=== PATIENT | female | born 1955 | race Caucasian/White ===

== ENCOUNTER 2017-02-23 14:23 | Inpatient (IN) ==
[2017-02-23 15:02] LABS: Basophils % 0.3 %; Eosinophils # 0.1 K/mcL (0.0-0.6); Eosinophils % 2.1 %; Hematocrit 33.3 % (35.3-44.9); Hemoglobin 10.4 g/dL (11.5-15.4); Immature Granulocytes % 0.3 % (0-4); Lymphocytes # 1.3 K/mcL (0.6-4.6); Lymphocytes % 37.2 %; Mean Corpuscular HGB Conc 31.2 g/dL (31.6-35.5); Mean Corpuscular Hemoglobin 26.3 pg (28.0-33.3); Mean Corpuscular Volume 84.3 fL (83.0-100.0); Monocytes # 0.3 K/mcL (0.0-1.3); Monocytes % 8.3 %; Neutrophils # 1.8 K/mcL (1.6-8.9); Platelet Count 151 K/mcL (140-400); Red Blood Count 3.95 M/mcL (3.82-4.97); Red Cell Distribution Width 15.1 % (11.5-14.5); Segmented Neutrophils % 51.8 %
[2017-02-23 15:09] LABS: INR 1.1; Prothrombin Time 12.4 Seconds (9.4-12.1)
[2017-02-23 15:11] LABS: Activated Partial Thrombo Time 29.2 Seconds (26.0-36.0)
--- NOTE | 2017-02-23 16:14 | Emergency Department Note ---
Disposition Clinical Impression: Atrial fibrillation with RVR Disposition: Admitted As Inpatient Condition: Fair Referrals: Matthias Polo MD [Primary Care Provider] - Forms: ED Satisfaction Letter Time of Disposition: 19:08 Arrhythmia/Palpitations HPI - General Chief Complaint: ED Arrhythmia/Palpitations Stated Complaint: sent from Dr. Polo,"afib,hypoxia" Time Seen by Provider: 02/23/17 16:12 Source: patient Limitations: no limitations Nursing Notes Reviewed: Yes Vital Signs Reviewed: Yes - History of Present Illness HPI Narrative: 61-year-old was seen family doctor for follow-up that admission to an outside hospital for bilateral pneumonia. And apparently was to start anticoagulation from that visit but had not started it yet. Was found to be in A. fib with RVR which appears to be new based on our review of EKG the patient's recollection of her history. We'll attempt to get records from the recent hospitalization at the outside hospital to verify whether she was in A. fib or not and get other records from there. Review of the records from outside hospital patient was in atrial fibrillation was admitted for bilateral pneumonia. An echocardiogram shows EF of 55%. 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 Duration: constant Severity: moderate Context: occurred during rest Arrhythmia History: other (Patient denies history of atrial fibrillation) Associated symptoms: Reports: denies other symptoms - Related Data Home Medications Medication Instructions Recorded Confirmed Ascorbic Acid [Vitamin C] 250 mg PO BID 01/11/16 10/18/16 Aspirin 325 mg PO DAILY 01/11/16 10/18/16 Calcium Carbonate/Vitamin D3 1 each PO BID 01/11/16 10/18/16 [Calcium 500 + Vit D Caplet] Ergocalciferol (VITAMIN D2) 50,000 unit PO DAVIS 01/11/16 10/18/16 [Vitamin D2 (50,000 UNIT)] Folic Acid 2 mg PO DAILY 01/11/16 10/18/16 Isosorbide MONOnitrate [Isosorbide 120 mg PO DAILY 01/11/16 10/18/16 Mononitrate ER] Metoprolol XL (24 HR) Succ [Toprol 100 mg PO DAILY 01/11/16 10/18/16 Xl] Multivitamin/Iron/Folic Acid 1 each PO DAILY 01/11/16 10/18/16 [Centrum Complete Multivit Tab] Nitroglycerin [Nitrostat] 0.4 mg SL Q5M PRN 01/11/16 10/18/16 [place]-3/Dha/Epa/Fish Oil [Fish Oil 1,000 mg PO DAILY 01/11/16 10/18/16 Dr 500 mg Softgel] Pregabalin [Lyrica] 200 mg PO BID 01/11/16 10/18/16 Ranolazine [Ranexa] 1,000 mg PO BID 01/11/16 10/18/16 Simvastatin [Zocor] 20 mg PO HS 01/11/16 10/18/16 Venlafaxine HCl [Effexor Xr] 75 mg PO DAILY 01/11/16 10/18/16 Vitamin E 1,000 units PO DAILY 01/11/16 10/18/16 Alprazolam [Xanax 1 MG Tablet] 0.25 mg PO BID PRN 10/18/16 10/21/16 Amitriptyline [Elavil] 25 - 50 mg PO HS 10/18/16 10/18/16 Omeprazole [PriLOSEC] 40 mg PO DAILY 10/18/16 10/18/16 Oxycodone HCl/Acetaminophen 1 each PO Q6H PRN 10/18/16 10/18/16 [Percocet 10-325 mg Tablet] Clopidogrel [Plavix] 10/19/16 Previous Rx's Medication Instructions Recorded Lisinopril [Zestril] 40 mg PO DAILY #0 10/21/16 Allergies Allergy/AdvReac Type Severity Reaction Status Date / Time hydrocodone [From Vicodin] Allergy Swelling Verified 02/23/17 14:36 of Lip/Tongue/Throat All systems ED: reviewed and negative except as stated. Constitutional: Denies: fever, chills, weakness, weight change Eyes: Denies: eye pain, eye discharge, vision change ENT ED: Denies: ear pain, throat pain, dental pain, hearing loss, epistaxis, congestion, dysphagia Cardiovascular: Reports: palpitations. Denies: chest pain, dyspnea on exertion , edema, syncope Respiratory: Denies: cough, dyspnea, wheezes, hemoptysis, stridor Gastrointestinal: Denies: abdominal pain, nausea, vomiting, diarrhea, constipation, hematemesis, melena, hematochezia Genitourinary: Denies: dysuria, frequency, hematuria, discharge Musculoskeletal: Denies: back pain, neck pain, arthralgia, myalgia Integumentary: Denies: rash, abrasion, lesions Neurological: Denies: headache, weakness, numbness, paresthesias, confusion, abnormal gait, vertigo Psychiatric: Denies: anxiety, depression, suicidal thoughts, homicidal thoughts , auditory hallucinations, visual hallucinations Endocrine: Denies: fatigue Hematological/Lymphatic: Denies: easy bleeding, easy bruising Allergic/Immunologic: Denies: facial swelling, urticaria Past Medical History - Past Medical History Medical history: Reports: coronary artery disease, hyperlipidemia, hypertension , osteoporosis, other Surgical history: Reports: cholecystectomy, coronary bypass (CABG), hysterectomy Psychiatric history: Reports: depression - Social History Smoking Status: Never smoker Smokeless Tobacco Status: No Alcohol use: Reports: none Drug use: Reports: none Physical Exam - General Limitations: no limitations General appearance: alert, in no apparent distress - Head Head exam: atraumatic, normocephalic, normal inspection - Eye Eye exam: Present: normal appearance, PERRL, EOMI - ENT ENT exam: normal exam, normal oropharynx, mucous membranes moist - Neck Neck exam: Present: normal inspection, full ROM, trachea midline - Chest Chest inspection: Present: normal inspection, symmetric chest wall rise - Respiratory Respiratory exam: Present: normal lung sounds bilaterally - Cardiovascular Cardiovascular exam: Present: tachycardia, irregular rhythm - Abdominal Exam Abdominal exam: Present: soft, Non-Tender. Absent: tenderness, distention, guarding, rebound, rigidity - Extremities Exam Extremities exam: Present: normal inspection, full ROM. Absent: tenderness, pedal edema - Expanded Lower Extremity Exam Neurovascular/Tendon exam: Absent: motor deficit, sensory deficit, tendon deficit Gait: observed and normal - Back Exam Back exam: Present: normal inspection, full ROM. Absent: tenderness - Neurological Exam Neurological exam: Present: alert, oriented X3 - Psychiatric Psychiatric exam: Present: normal affect, normal mood - Skin Skin exam: Present: warm, dry, intact, normal color Course - Reevaluation(s) Reevaluation #1: Patient is a 61-year-old was seen at the office for follow-up of pneumonia from outside facility. Patient was found to have a heart rate 135 and irregular. Patient on arrival here has some shortness of breath her heart rate anywhere from 100-120. She is in a . I did get medical records from the outside hospital she did have a cardiac catheter that shows that she has a bypass that is functioning. Her EF was 55%. Workup here included a negative chest x-ray however she did have some rales on exam and her BNP is 580 were given her some Lasix. He is in A. fib RVR will start her on Cardizem drip at low level since she's is just marginally high. Also give her a shot of Lovenox. Time: 19:42 - Consultations Consultation #1: Discussed with Serina Bartholomew nurse practitioner admit. Time: 19:44 Vital Signs Temperature 98.7 F 02/23/17 14:30 Pulse Rate 88 02/23/17 14:30 Respiratory Rate 18 02/23/17 14:30 Blood Pressure 115/59 02/23/17 14:30 O2 Sat by Pulse Oximetry 96 02/23/17 14:30 Temperature 98.7 F 02/23/17 14:30 Pulse Rate 116 02/23/17 19:40 Respiratory Rate 18 02/23/17 19:40 Blood Pressure 147/82 02/23/17 19:40 O2 Sat by Pulse Oximetry 99 02/23/17 19:40 Oxygen Delivery Oxygen Delivery Nasal Cannula Arrhythmia/Palpitations - Lab Data Lab results reviewed: Yes I reviewed the patient's lab results. Result diagrams: 02/23/17 14:55 02/23/17 14:54 Lab Results 02/23/17 02/23/17 02/23/17 Range/Units 14:54 14:54 14:55 WBC 3.4 L (4.3-11.1) K/mcL RBC 3.95 (3.82-4.97) M/mcL Hgb 10.4 L (11.5-15.4) g/dL Hct 33.3 L (35.3-44.9) % MCV 84.3 (83.0-100.0) fL MCH 26.3 L (28.0-33.3) pg MCHC 31.2 L (31.6-35.5) g/dL RDW 15.1 H (11.5-14.5) % Plt Count 151 (140-400) K/mcL MPV 11.0 (9.4-12.4) fL Immature Gran % 0.3 (0-4) % Seg Neutrophils % 51.8 % Lymphocytes % 37.2 % Monocytes % 8.3 % Eosinophils % 2.1 % Basophils % 0.3 % Neutrophils # 1.8 (1.6-8.9) K/mcL Lymphocytes # 1.3 (0.6-4.6) K/mcL Monocytes # 0.3 (0.0-1.3) K/mcL Eosinophils # 0.1 (0.0-0.6) K/mcL Basophils # 0.0 (0.0-0.2) K/mcL PT (9.4-12.1) Seconds INR APTT (26.0-36.0) Seconds Sodium 138 (136-145) mEq/L Potassium 3.7 (3.5-4.5) mEq/L Chloride 103 (98-109) mEq/L Carbon Dioxide 22 (19-29) mEq/L BUN 10 (7-20) mg/dL Creatinine 0.50 L (0.57-1.11) mg/dL Est GFR ( Amer) > 60 (> 60) Est GFR (Non-Af Amer) > 60 (> 60) BUN/Creatinine Ratio 20 (6-26) Glucose 91 (70-99) mg/dL Calculated Osmolality 285 (280-300) Calcium 9.3 (8.6-10.8) mg/dL Troponin I (0-0.03) ng/mL B-Natriuretic Peptide 508 H (0-100) pg/mL 02/23/17 02/23/17 Range/Units 14:55 14:55 WBC (4.3-11.1) K/mcL RBC (3.82-4.97) M/mcL Hgb (11.5-15.4) g/dL Hct (35.3-44.9) % MCV (83.0-100.0) fL MCH (28.0-33.3) pg MCHC (31.6-35.5) g/dL RDW (11.5-14.5) % Plt Count (140-400) K/mcL MPV (9.4-12.4) fL Immature Gran % (0-4) % Seg Neutrophils % % Lymphocytes % % Monocytes % % Eosinophils % % Basophils % % Neutrophils # (1.6-8.9) K/mcL Lymphocytes # (0.6-4.6) K/mcL Monocytes # (0.0-1.3) K/mcL Eosinophils # (0.0-0.6) K/mcL Basophils # (0.0-0.2) K/mcL PT 12.4 H (9.4-12.1) Seconds INR 1.1 APTT 29.2 (26.0-36.0) Seconds Sodium (136-145) mEq/L Potassium (3.5-4.5) mEq/L Chloride (98-109) mEq/L Carbon Dioxide (19-29) mEq/L BUN (7-20) mg/dL Creatinine (0.57-1.11) mg/dL Est GFR ( Amer) (> 60) Est GFR (Non-Af Amer) (> 60) BUN/Creatinine Ratio (6-26) Glucose (70-99) mg/dL Calculated Osmolality (280-300) Calcium (8.6-10.8) mg/dL Troponin I 0.01 (0-0.03) ng/mL B-Natriuretic Peptide (0-100) pg/mL - Radiology Data Radiology results reviewed: Yes I reviewed the patient's radiology results. Chest X-Ray 02/23/17 14:38 IMPRESSION: No acute abnormality D/ / Deniz Ozuna MD / Deniz Ozuna MD Interpreting Provider: Deniz Ozuna MD - EKG Data EKG attestation: Yes I reviewed and interpreted this EKG. Rate: tachycardia Rhythm: A.Fib Interpretation: other (New onset atrial fibrillation) Critical Care Time Critical Care Time: Yes Total Critical Care Time: 30 Attestation: The high probability of a clinically significant, sudden or life threatening deterioration of the [cardiovascular] system(s) required my full and direct attention, intervention and personal management. The aggregate critical care time was [30] minutes. This time is in addition to time spent performing reported procedures but includes the following: [x] Data Review and interpretation [x] Patient assessment and monitoring of vital signs [x] Documentation [x] Medication orders and management
[2017-02-23 16:50] LABS: BUN/Creatinine Ratio 20 (6-26); Blood Urea Nitrogen 10 mg/dL (7-20); Calcium 9.3 mg/dL (8.6-10.8); Carbon Dioxide 22 mEq/L (19-29); Chloride 103 mEq/L (98-109); Glucose 91 mg/dL (70-99); Osmolality,Calculated 285 (280-300); Potassium 3.7 mEq/L (3.5-4.5); Sodium 138 mEq/L (136-145); eGFR For African Americans > 60 (> 60); eGFR For Non-African Americans > 60 (> 60)
[2017-02-23] MEDS ORDERED: Furosemide 20 MG/2 ML VIAL IVP ONE (19:41)
[2017-02-23] MEDS ORDERED: *HR* Enoxaparin 80 MG/0.8 ML SYRINGE SQ STA (19:43)
[2017-02-23] MEDS ORDERED: Ondansetron 4 MG/2 ML VIAL IVP ONE (20:41)
[2017-02-23] MEDS ORDERED: Ondansetron 4 MG/2 ML VIAL ONE (20:48)
[2017-02-24] MEDS ORDERED: Ondansetron 4 MG/2 ML VIAL IVP PRN (03:28)
[2017-02-24] MEDS ORDERED: Naloxone 0.4 MG/ML INJ IVP PRN (03:28)
[2017-02-24] MEDS ORDERED: Acetaminophen 325 MG TABLET PO PRN (03:28)
[2017-02-24] MEDS ORDERED: *HR* OxyCODONE Immed Rel 15 MG TABLET PO PRN (03:36)
[2017-02-24] MEDS ORDERED: ALPRAZolam 0.25 MG TABLET PO PRN (03:36)
[2017-02-24] MEDS ORDERED: Nitroglycerin 0.4 MG TAB.SUBL SL PRN (03:36)
--- NOTE | 2017-02-24 03:39 | Internal Med History&Physical ---
<Rodrigo Reyes - Last Filed: 02/24/17 03:53> Date of Encounter: 02/24/17 Time of Encounter: 03:00 Assessment and Plan (1) Atrial fibrillation with RVR Current visit: Yes Status: Acute Patient presents to the hospital from her PCP with irregularly irregular tachycardia. She was recently at the [facility] being treated for the same thing, unfortunately it has returned. Patient was supposed to start apixaban after that hospitalization on 02/08/17, but she has not started until the medication was reviewed by her PCP. She was sent to the hospital for should start. At [facility], cardioversion was attempted but failed and she was started on anticoagulation. Her her bilateral pleural effusions were likely result of her atrial fibrillation at that time. Is unclear from the documentation whether the A. fib with RVR was result of her hyperthyroidism or result of an NSTEMI. She did receive a cardiac catheterization, there were no interventions undertaken at that time. She was also started on methimazole. Patient currently on diltiazem drip for rate control of her atrial fibrillation with rapid ventricular response She is also receiving therapeutic Lovenox at 50 mg twice a day Given how recently she had cardiac catheterization and transesophageal echocardiogram, we will not obtain an echo at this time Patient on 100 mg metoprolol succinate at home, will continue that here Continue patient methimazole and obtain TSH (2) Hyperthyroidism Current visit: Yes Status: Acute Patient hyperthyroidism appears to been diagnosed at the [facility] 2 weeks ago, with thyroid ultrasound which showed heterogeneous, hyperemic, nonspecific findings. Patient started on methimazole. We will continue methimazole Obtain TSH (3) CAD (coronary artery disease) Current visit: No Status: Chronic Patient underwent previous CABG (double bypass), recent cardiac catheterization showed complete occlusion of one bypass, and chronic occlusion of proximal and mid LAD as well as mid RCA. Patient reports having chronic, stable angina nose on both Imdur and Ranexa as well as sublingual nitroglycerin as needed. Recommendations from cardiology [facility] for medical management of patient coronary artery disease. We will continue patient home medications including aspirin, Ranexa, Imdur, sublingual nitroglycerin, lisinopril, metoprolol Qualifiers: Coronary Disease-Associated Artery/Lesion type: [place] artery [place] vs. transplanted heart: [place] heart Associated angina: angina presence unspecified Qualified Code(s): I25.10 - Atherosclerotic heart disease of [place] coronary artery without angina pectoris (4) HTN (hypertension) Current visit: No Status: Chronic Patient on amlodipine, hydrochlorothiazide, metoprolol at home We will continue patient home medications Qualifiers: Hypertension type: essential hypertension Qualified Code(s): I10 - Essential (primary) hypertension (5) Angina at rest Current visit: Yes Status: Acute Chronic angina, patient on Imdur, Ranexa, and has sublingual nitroglycerin We will continue these medications Patient also taking OxyContin and Percocet for chronic pain issues, will continue these (6) DVT prophylaxis Current visit: No Status: Acute Patient placed on therapeutic Lovenox for anticoagulation purposes of atrial fibrillation (7) Diabetes Current visit: No Status: Acute She states that she has diabetes and formerly used insulin, but through exercise and better diet she is no longer had to take any medications. Will not put on any active checks her subcutaneous insulin at this moment Qualifiers: Diabetes mellitus type: type 2 Diabetes mellitus complication status: with unspecified complications Diabetes mellitus senior living insulin use: without manager intermediate use Qualified Code(s): E11.8 - Type 2 diabetes mellitus with unspecified complications Internal Medicine - H&P: HPI Chief complaint: Fast Heart Rate Admitted From: Emergency Dept Plans for Post Hospital Care: Home History of present illness: Ms. Mcdaniels is a 61 year old female with prior medical history of coronary artery disease, hypertension, and recently diagnosed with hyperthyroidism and atrial fibrillation presented to [place] from her PCPs office due to concerns of A. fib with RVR. In the emergency room she felt like she was having palpitations and with those some nausea. She felt a substernal tightness in her chest that she rates as 7/10 in severity, but does report that she has almost all the time due to chronic angina. With her elevated heart rates in the emergency room she was having lightheadedness, loss of coordination, shortness of breath, and some pain with breathing. She was found to be in atrial fibrillation with rapid ventricular response and admitted for further management. She was on her PCPs office today as follow-up from her recent hospitalization in [place]. She was admitted to the hospital [place] on 02/03/17 and discharged on 02/08/17. She was in the hospital there because of atrial fibrillation with rapid ventricular response, bilateral pleural effusions, NSTEMI, hypothyroidism, and recent weight loss per the documents provided by [facility]. Patient is not necessarily the most reliable historian as she feels she was there for bilateral pneumonia, there are no records of pneumonia at that time. Her A. fib with RVR was treated with an AV ashley delfino, and she underwent ALISHA guided cardioversion. When this failed she received for the heparin and was given apixaban as outpatient anticoagulation. She did not want to start taking this until she discussed it with her PCP, as such has not been anticoagulated since her discharge. Her bilateral pleural effusions were treated with Lasix. For her NSTEMI she underwent cardiac catheterization that found in EF of 55% , chronic 100% occlusion of proximal mid LAD and mid RCA. She had 2 bypasses previously one of which have become 100% occluded, the other was patent. Medical management was recommended at that time. She was supposed to follow-up with GI for endoscopy as outpatient to further evaluate her recent loss of weight. For her hyperthyroid, she underwent thyroid ultrasound which showed heterogeneous hyperemic thyroid, which is nonspecific and possibly represents thyroiditis?. She was started on methimazole and was supposed to follow-up with an cartridge assembler. She reports that since September she has been having diarrhea, night sweats, and 50 pound weight loss. She reports never have smoked, but her was a chronic smoker who recently due to lung cancer. She says he only smoked outside, but even with this she could have had secondhand exposure. She also has a recent history of hyperthyroid having just started treatment with methimazole. Past Med Surg Social Fam HX - Past Medical History Medical history: coronary artery disease, hyperlipidemia, hypertension, osteoporosis, other Psychiatric history: depression - Past Surgical History Surgical History: cholecystectomy, coronary bypass (CABG), hysterectomy - Social History Smoking Status: Never smoker Smokeless Tobacco Status: No Alcohol use: none Drug use: none - Family History Mother Adopted: No Family Member Ethnicity: Non- Living Status: Hx Family Cardiac Disorders: Yes (NE) Hx Family Respiratory Disorders: No Hx Family Cancer: Yes (Bowel Cancer) Hx Family GI Disorders: Yes (Bowel Cancer) Hx Family Endocrine Disorder: Yes (DM) Hx Family Neuromuscular Disorders: No Hx Family Neurologic Disorders: No Hx Family HEENT Disorders: No Hx Family Autoimmune Disorders: No Internal Medicine - H&P: Meds Ascorbic Acid [Vitamin C] 250 mg PO BID 01/11/16 [History] Aspirin 325 mg PO DAILY 01/11/16 [History] Calcium Carbonate/Vitamin D3 [Calcium 500 + Vit D Caplet] 1 tab PO BID 01/11/16 [History] Ergocalciferol (VITAMIN D2) [Vitamin D2 (50,000 UNIT)] 50,000 unit PO DAVIS [History] Folic Acid 2 mg PO DAILY 01/11/16 [History] Isosorbide MONOnitrate [Isosorbide Mononitrate ER] 120 mg PO DAILY 01/11/16 [ History] Metoprolol XL (24 HR) Succ [Toprol Xl] 100 mg PO DAILY 01/11/16 [History] Multivitamin/Iron/Folic Acid [Centrum Complete Multivit Tab] 1 tab PO DAILY [History] Nitroglycerin [Nitrostat] 0.4 mg SL Q5M PRN 01/11/16 [History] [place]-3/Dha/Epa/Fish Oil [Fish Oil Dr 500 mg Softgel] 1,000 mg PO DAILY [History] Pregabalin [Lyrica] 200 mg PO BID 01/11/16 [History] Ranolazine [Ranexa] 1,000 mg PO BID 01/11/16 [History] Simvastatin [Zocor] 20 mg PO HS 01/11/16 [History] Venlafaxine HCl [Effexor Xr] 75 mg PO DAILY 01/11/16 [History] Vitamin E 1,000 units PO DAILY 01/11/16 [History] Alprazolam [Xanax 1 MG Tablet] 0.25 mg PO BID PRN 10/18/16 [History] Amitriptyline [Elavil] 25 - 50 mg PO HS 10/18/16 [History] Oxycodone HCl/Acetaminophen [Percocet 10-325 mg Tablet] 1 tab PO Q6H PRN [History] Lisinopril [Zestril] 40 mg PO DAILY #0 10/21/16 [Rx] Amlodipine Besylate 2.5 mg PO DAILY 02/23/17 [History] Apixaban [Eliquis] 5 mg PO BID 02/23/17 [History] Furosemide [Lasix] 40 mg PO BID 02/23/17 [History] Hydrochlorothiazide 25 mg PO DAILY 02/23/17 [History] Megestrol Acetate [Megace] 400 mg PO DAILY 02/23/17 [History] Methimazole [Tapazole] 5 mg PO TID 02/23/17 [History] Pantoprazole Sodium [Protonix] 40 mg PO DAILY 02/23/17 [History] Paroxetine HCl [Paxil] 20 mg PO DAILY 02/23/17 [History] Oxycontin 30 mg PO Q12H 02/24/17 [History] Allergies hydrocodone [From Vicodin] Allergy (Verified 02/23/17 14:36) Swelling of Lip/Tongue/Throat - Constitutional Constitutional: fever(s), night sweats, weight loss, no anorexia, no chills, no weakness - EENT Eyes: no change in vision, no loss of vision Nose, mouth and throat: no dysphagia, no nasal discharge, no neck pain, no sore throat - Cardiovascular Cardiovascular ROS IM: as per HPI, chest pain, dyspnea, palpitations, no diaphoresis, no edema, no lightheadedness, no syncope - Respiratory Respiratory: as per HPI, dyspnea, pain on inspiration, no cough, no wheezing, no excessive phlegm production - Gastrointestinal Gastrointestinal: diarrhea, no abdominal pain, no constipation, no hematemesis, no hematochezia, no melena, no nausea, no vomiting - Genitourinary Genitourinary: no dysuria, no hematuria - Musculoskeletal Musculoskeletal ROS IM: arthralgias (hip), no numbness, no tingling - Integumentary Integumentary IM: no rash, no unusual bruising - Neurological Neurological ROS: no confusion, no convulsions, no focal weakness, no headache(s ), no numbness, no tingling - Hematologic/Lymphatic Hematologic/Lymphatic: no easy bruising - Constitutional Vitals: Temp Pulse Resp BP Pulse Ox 98.1 F 98 16 146/77 99 02/23/17 22:32 02/23/17 22:32 02/23/17 22:32 02/23/17 22:32 02/23/17 22:32 Exam: General: Cooperative, pleasant, no acute distress, alert and oriented 3, answers questions appropriately, thin, prior midline scar from sternotomy, likely sternotomy wires pressing against anterior chest skin Head: Normocephalic, atraumatic Eye: Conjunctiva pink, sclera anicteric, EOMI, PERRL Neck: Supple, trachea midline, mucosa moist, no erythema or exudates in oropharynx Respiratory: No accessory muscle usage, clear to auscultation bilaterally, no wheezes/rhonchi/rales appreciated Cardiovascular: Tachycardia, irregularly irregular rhythm, no murmurs/rubs/ gallops/clicks appreciated GI/abdominal: Nondistended, nontender, soft, normal bowel sounds, no peritoneal signs Extremities: Mild calf tenderness, noncyanotic, no pedal edema appreciated, warm , lower extremity pulses palpable and symmetrical Neurological: Alert and oriented 3, no facial droop, no focal deficits Skin: Dry, intact, normal color Internal Med - H&P Results - Labs CBC & Chem 7: 02/23/17 14:55 02/23/17 14:54 - EKG Data -: EKG Interpreted by Myself EKG shows normal: axis (Normal axis) Rate: tachycardia - EKG Data Prior EKG available for review: yes When compared to previous EKG: there are significant changes Interpretation IM: suggestive of ischemia, other (A. fib with RVR, mild ST elevation in V2 (1 mm), T-wave inversions in V3 through V6, ST depression in leads I-II) - Impressions Impressions Chest X-Ray 02/23/17 14:38 IMPRESSION: No acute abnormality D/ / Deniz Ozuna MD / Deniz Ozuna MD Interpreting Provider: Deniz Ozuna MD <Tad Grace - Last Filed: 02/24/17 05:48> Date of Encounter: 02/24/17 Internal Medicine - H&P: HPI History of present illness: Ms. Mcdaniels is a 61 year old female All Systems PM: A 10-system review of systems was performed and is negative for pertinent findings except as documented above in the HPI. - Constitutional Vitals: Temp Pulse Resp BP Pulse Ox 98.7 F 85 17 126/65 99 02/24/17 05:00 02/24/17 05:00 02/24/17 05:00 02/24/17 05:00 02/24/17 05:00 Internal Med - H&P Results - Labs CBC & Chem 7: 02/24/17 03:52 02/24/17 03:52 Labs: Short CBC 02/24/17 Range/Units 03:52 WBC 3.5 L (4.3-11.1) K/mcL Hgb 10.4 L (11.5-15.4) g/dL Hct 33.0 L (35.3-44.9) % Plt Count 160 (140-400) K/mcL Neutrophils # 1.8 (1.6-8.9) K/mcL BMP 02/24/17 03:52 Sodium 141 Potassium 3.4 L Chloride 105 Carbon Dioxide 25 BUN 8 Creatinine 0.47 L Glucose 99 Calcium 9.3 Cardiac Enzymes 02/24/17 Range/Units 03:52 Troponin I 0.03 (0-0.03) ng/mL Liver Function 02/24/17 Range/Units 03:52 Total Bilirubin 1.0 (0.2-1.2) mg/dL AST 41 H (5-34) Units/L ALT 28 (0-55) Units/L Alkaline Phosphatase 239 H (38-126) Units/L Albumin 2.8 L (3.5-5.0) g/dL - Attending Attestation I examined this patient and my medical decision-making was reviewed with the MANUFACTURING PLANNER/PA/Advanced Practice Nurse/Resident Physician. I agree with the documented findings, disposition and treatment plan as described except to the extent set forth below.
[2017-02-24] MEDS: *HR* OxyCODONE/APAP 10/325 TABLET PO PRN ×2 (04:09→09:58)
[2017-02-24 04:44] LABS: Basophils % 0.3 %; Eosinophils % 1.2 %; Hemoglobin 10.4 g/dL (11.5-15.4); Immature Granulocytes % 0.3 % (0-4); Lymphocytes # 1.2 K/mcL (0.6-4.6); Lymphocytes % 33.7 %; Mean Corpuscular HGB Conc 31.5 g/dL (31.6-35.5); Mean Corpuscular Hemoglobin 26.6 pg (28.0-33.3); Mean Corpuscular Volume 84.4 fL (83.0-100.0); Mean Platelet Volume 12.2 fL (9.4-12.4); Monocytes # 0.4 K/mcL (0.0-1.3); Monocytes % 12.1 %; Neutrophils # 1.8 K/mcL (1.6-8.9); Platelet Count 160 K/mcL (140-400); Red Blood Count 3.91 M/mcL (3.82-4.97); Red Cell Distribution Width 15.3 % (11.5-14.5); Segmented Neutrophils % 52.4 %
[2017-02-24] MEDS ORDERED: Melatonin 3 MG TABLET PO PRN (04:51)
[2017-02-24 05:00] LABS: Alanine Aminotransferase 28 Units/L (0-55); Albumin 2.8 g/dL (3.5-5.0); Albumin/Globulin Ratio 0.7 (1.1-2.2); Alkaline Phosphatase 239 Units/L (38-126); Aspartate Amino Transferase 41 Units/L (5-34); BUN/Creatinine Ratio 17 (6-26); Blood Urea Nitrogen 8 mg/dL (7-20); Calcium 9.3 mg/dL (8.6-10.8); Carbon Dioxide 25 mEq/L (19-29); Chloride 105 mEq/L (98-109); Globulin 3.9 g/dL (2.4-3.5); Glucose 99 mg/dL (70-99); Magnesium 1.5 mg/dL (1.6-2.6); Osmolality,Calculated 290 (280-300); Phosphorous 3.9 mg/dL (2.3-4.7); Potassium 3.4 mEq/L (3.5-4.5); Sodium 141 mEq/L (136-145); Total Protein 6.7 g/dL (6.0-8.3); eGFR For African Americans > 60 (> 60); eGFR For Non-African Americans > 60 (> 60)
[2017-02-24] MEDS ORDERED: *HR* Enoxaparin 60 MG/0.6 ML SYRINGE SQ SCH (06:00)
[2017-02-24] MEDS ORDERED: amLODIPine 5 MG TABLET PO SCH (09:00)
[2017-02-24] MEDS ORDERED: Aspirin 325 MG TABLET PO SCH (09:00)
[2017-02-24] MEDS: Metoprolol XL (24 HR) Succ 50 MG TAB.ER.24H PO SCH (09:58)
[2017-02-24] MEDS: Venlafaxine XR (24 HR) 75 MG CAP.ER.24H PO SCH (09:58)
[2017-02-24] MEDS: methIMAzole 5 MG TABLET PO SCH ×3 (09:58→22:57)
[2017-02-24] MEDS: Ranolazine 500 MG TAB.ER.12H PO SCH ×2 (09:58→22:56)
[2017-02-24] MEDS: Isosorbide MONOnitrate (24 HR) 60 MG TAB.ER.24H PO SCH (09:58)
[2017-02-24] MEDS: Furosemide 40 MG TABLET PO SCH ×2 (09:59→17:07)
[2017-02-24] MEDS: Multivit/Ca/Min/Fe/FA 1 TAB TABLET PO SCH (09:59)
[2017-02-24] MEDS: *HR* OxyCODONE ER (12 HR) 10 MG TABLET PO SCH ×2 (09:59→17:07)
[2017-02-24] MEDS: Lisinopril 20 MG TABLET PO SCH (09:59)
[2017-02-24] MEDS: hydroCHLOROthiazide 25 MG TABLET PO SCH (09:59)
[2017-02-24] MEDS: Ascorbic Acid 500 MG TABLET PO SCH ×2 (09:59→22:57)
[2017-02-24] MEDS: Folic Acid 1 MG TABLET PO SCH (09:59)
[2017-02-24] MEDS: Pregabalin 50 MG CAPSULE PO SCH ×2 (09:59→22:56)
[2017-02-24] MEDS: Calcium 500 + Vit D PO SCH ×2 (10:00→22:57)
--- NOTE | 2017-02-24 10:33 | Event Note ---
Date of Encounter: 02/24/17 Time of Encounter: 10:10 61/F PCP : Dr Elaine Brief PMH: Atrial fibrillation, hypertension, hypothyroidism, previous CABG Recent hospitalization: 02/03/17-02/08/17 at [facility] work up : She was admitted with atrial fibrillation with rapid ventricular rate , ECHO : EF>55%, underwent ALISHA, failed cardioversion at 360 J. Underwent cardiac catheter: Moderate to severe coronary artery disease, recommended medical management. Chronic total occlusion LAD, distal RCA, saphenous vein graft to posterior descending artery Underwent CT abdomen and pelvis:Gastroentrology was consulted for dysphagia: recommended endoscopy outpatient. Concern from PCP:Was seen by PCP in this health system as a post hospitalization follow-up. Noted that during the interview with the PCPs office she was in atrial fibrillation with rapid ventricular rate. This was the reason she was sent to the emergency room. Hospital course: Patient was admitted from the emergency room. She was started on Cardizem drip. Presently her heart rate is well controlled. She received therapeutic dose of Lovenox in the emergency room. She did not start any oral anticoagulation. We will get cardiology evaluation Assessment/plan Recurrent atrial fibrillation with rapid ventricular rate: Precipitating factor : Infection, hypothyroidism, inadequate medication, noncompliance Hyperthyroidism: As per PCP note she was not hyperthyroid before: TSH is 0. Need to communicate with PCP for further information. Plan: -We will continue Cardizem drip. -Await for cardiology regarding anticoagulation ( in case if we need another attempt on cardioversion) - Continue present medication - all questions answered.
--- NOTE | 2017-02-24 12:09 | Cardiology Consult Note ---
Date of Encounter: 02/24/17 Time of Encounter: 12:03 Assessment and Plan (1) Atrial fibrillation Current Visit: Yes Status: Acute Recently diagnosed with AF. ALISHA guided cardioversion unsuccessful at outside hospital. Currently rate controlled on cardize drip. Recommend change to PO cardizem. CHADS-VASc (HTN, PVD, FM) 3. R/B/A to AC discussed with patient. She is agreeable. Start Eliquis 5 mg BID. Agree with evaluation of thyroid function. TSH 0, Free T4 pending. Qualifiers: Atrial fibrillation type: persistent Qualified Code(s): I48.1 - Persistent atrial fibrillation (2) Hx of CABG Current Visit: Yes Status: Acute (3) CAD (coronary artery disease) Current Visit: No Status: Chronic [place] CAD, prior CABG, 1/2 patent bypass grafts. Recommend continue aspirin/statin/BB/ACEi/Imdur/Ranexa. LV function preserved. Troponins negatrive. Recent LHC performed at [facility] and last year at [place] - medical therapy recommend. Risk factor modification emphasized, tobacco cessation. Qualifiers: Coronary Disease-Associated Artery/Lesion type: [place] artery [place] vs. transplanted heart: [place] heart Associated angina: angina presence unspecified Qualified Code(s): I25.10 - Atherosclerotic heart disease of [place] coronary artery without angina pectoris Discussion w patient/family: The assessment and plan as outlined above was discussed with the patient and/or family members who expressed understanding and agreement. All questions were answered. Thank you for involving us in the care of your patient. Please call with any questions. History of Present Illness Consult date: 02/24/17 Requesting physician: Ariel Cruz Consult reason: AF Chief complaint: AF History of present illness: Ms. Mcdaniels is a 61 year old female with known CAD, prior CABG. Recently diagnosed AF, treated at [facility]. Reportedly ALISHA guided cardioversion attempted, but unsuccessful. Placed on medical therapy, but reports she did not take medications. LHC performed, medical therapy recommended. LVEF reportedly > 55%. Today, appears comfortable. Reports intermittent chest pain and palpitations at home. No lightheadedness, near syncope, or syncope. Currently on Cardize gtt, HR well controlled. Comorbidities - tobacco use, hyperthyroidism (THS 0). Past Med Surg Social Fam HX - Past Medical History Medical history: coronary artery disease, hyperlipidemia, hypertension, osteoporosis, other Psychiatric history: depression - Past Surgical History Surgical History: cholecystectomy, coronary bypass (CABG), hysterectomy - Social History Smoking Status: Never smoker Smokeless Tobacco Status: No Alcohol use: none Drug use: none - Family History Mother Adopted: No Family Member Ethnicity: Non- Living Status: Hx Family Cardiac Disorders: Yes (RI) Hx Family Respiratory Disorders: No Hx Family Cancer: Yes (Bowel Cancer) Hx Family GI Disorders: Yes (Bowel Cancer) Hx Family Endocrine Disorder: Yes (DM) Hx Family Neuromuscular Disorders: No Hx Family Neurologic Disorders: No Hx Family HEENT Disorders: No Hx Family Autoimmune Disorders: No Medications and Allergies Ascorbic Acid [Vitamin C] 250 mg PO BID 01/11/16 [History] Aspirin 325 mg PO DAILY 01/11/16 [History] Calcium Carbonate/Vitamin D3 [Calcium 500 + Vit D Caplet] 1 tab PO BID 01/11/16 [History] Ergocalciferol (VITAMIN D2) [Vitamin D2 (50,000 UNIT)] 50,000 unit PO DAVIS [History] Folic Acid 2 mg PO DAILY 01/11/16 [History] Isosorbide MONOnitrate [Isosorbide Mononitrate ER] 120 mg PO DAILY 01/11/16 [ History] Metoprolol XL (24 HR) Succ [Toprol Xl] 100 mg PO DAILY 01/11/16 [History] Multivitamin/Iron/Folic Acid [Centrum Complete Multivit Tab] 1 tab PO DAILY [History] Nitroglycerin [Nitrostat] 0.4 mg SL Q5M PRN 01/11/16 [History] [place]-3/Dha/Epa/Fish Oil [Fish Oil Dr 500 mg Softgel] 1,000 mg PO DAILY [History] Pregabalin [Lyrica] 200 mg PO BID 01/11/16 [History] Ranolazine [Ranexa] 1,000 mg PO BID 01/11/16 [History] Simvastatin [Zocor] 20 mg PO HS 01/11/16 [History] Venlafaxine HCl [Effexor Xr] 75 mg PO DAILY 01/11/16 [History] Vitamin E 1,000 units PO DAILY 01/11/16 [History] Alprazolam [Xanax 1 MG Tablet] 0.25 mg PO BID PRN 10/18/16 [History] Amitriptyline [Elavil] 25 - 50 mg PO HS 10/18/16 [History] Oxycodone HCl/Acetaminophen [Percocet 10-325 mg Tablet] 1 tab PO Q6H PRN [History] Lisinopril [Zestril] 40 mg PO DAILY #0 10/21/16 [Rx] Amlodipine Besylate 2.5 mg PO DAILY 02/23/17 [History] Apixaban [Eliquis] 5 mg PO BID 02/23/17 [History] Furosemide [Lasix] 40 mg PO BID 02/23/17 [History] Hydrochlorothiazide 25 mg PO DAILY 02/23/17 [History] Megestrol Acetate [Megace] 400 mg PO DAILY 02/23/17 [History] Methimazole [Tapazole] 5 mg PO TID 02/23/17 [History] Pantoprazole Sodium [Protonix] 40 mg PO DAILY 02/23/17 [History] Paroxetine HCl [Paxil] 20 mg PO DAILY 02/23/17 [History] Oxycontin 30 mg PO Q12H 02/24/17 [History] Allergies hydrocodone [From Vicodin] Allergy (Verified 02/23/17 14:36) Swelling of Lip/Tongue/Throat All Systems Review: A 10-system review of systems was performed and is negative for pertinent findings except as documented above in the HPI. - Cardiovascular Cardiovascular: as per HPI, chest pain at rest, dyspnea on exertion, palpitations, rapid heart rate Physical Examination General: Conversant, No Apparent Distress, Other (Thin. ) HEENT: Atraumatic, Normocephaly, Mucus Membranes Moist Neck: No JVD Cardiac: Other (Irregualr rate and rhythm, no significant murmurs. ) Lungs: Normal Breath Sounds, No Wheeze, Rales, Rhonchi Neuro: Alert and responsive, No focal deficits noted Abdomen: Soft, Non-Tender Skin: No rashes noted on visualized skin Musculoskeletal: No Chest Wall Tenderness Extremities: No Clubbing, No Cyanosis, No Edema Results 02/24/17 03:52 02/24/17 03:52 Lab Results 02/24/17 02/24/17 02/24/17 03:52 03:52 03:52 WBC 3.5 L Hgb 10.4 L Hct 33.0 L Plt Count 160 Sodium Potassium Chloride Carbon Dioxide BUN Creatinine Glucose Calcium Magnesium Total Bilirubin AST ALT Alkaline Phosphatase Troponin I 0.03 TSH 0.000 L 02/24/17 03:52 WBC Hgb Hct Plt Count Sodium 141 Potassium 3.4 L Chloride 105 Carbon Dioxide 25 BUN 8 Creatinine 0.47 L Glucose 99 Calcium 9.3 Magnesium 1.5 L Total Bilirubin 1.0 AST 41 H ALT 28 Alkaline Phosphatase 239 H Troponin I TSH - Imaging and Cardiology Echo: report reviewed Cardiac cath: report reviewed - EKG Interpretation EKG results cardiology: personally reviewed Consult Discharge Plan - Plan Referrals: Matthias Polo MD [Primary Care Provider] -
[2017-02-24] MEDS ORDERED: 0.9 % Sodium Chloride 1,000 ML IVC ONE ×2 (12:37→19:44)
[2017-02-24] MEDS: Diltiazem CD (24hr) 120 MG CAPSULE PO SCH (14:29)
[2017-02-24] MEDS ORDERED: 0.9 % Sodium Chloride 500 ML IVC ONE (14:45)
[2017-02-24] MEDS ORDERED: 0.9 % Sodium Chloride 1,000 ML IVC SCH (20:45)
[2017-02-24] MEDS: APIXABAN 5 MG TABLET PO SCH (22:57)
[2017-02-25] MEDS: *HR* OxyCODONE ER (12 HR) 10 MG TABLET PO SCH ×2 (05:39→17:09)
[2017-02-25 06:51] LABS: Basophils % 0.2 %; Eosinophils # 0.1 K/mcL (0.0-0.6); Eosinophils % 1.6 %; Hematocrit 29.8 % (35.3-44.9); Hemoglobin 9.2 g/dL (11.5-15.4); Immature Granulocytes % 0.9 % (0-4); Lymphocytes # 1.3 K/mcL (0.6-4.6); Mean Corpuscular HGB Conc 30.9 g/dL (31.6-35.5); Mean Corpuscular Hemoglobin 26.7 pg (28.0-33.3); Mean Corpuscular Volume 86.4 fL (83.0-100.0); Mean Platelet Volume 11.7 fL (9.4-12.4); Monocytes # 0.4 K/mcL (0.0-1.3); Monocytes % 9.7 %; Neutrophils # 2.6 K/mcL (1.6-8.9); Platelet Count 120 K/mcL (140-400); Red Blood Count 3.45 M/mcL (3.82-4.97); Red Cell Distribution Width 15.5 % (11.5-14.5); Segmented Neutrophils % 58.6 %
[2017-02-25 08:15] LABS: Alanine Aminotransferase 22 Units/L (0-55); Albumin 2.5 g/dL (3.5-5.0); Albumin/Globulin Ratio 0.7 (1.1-2.2); Alkaline Phosphatase 215 Units/L (38-126); Aspartate Amino Transferase 35 Units/L (5-34); BUN/Creatinine Ratio 34 (6-26); Bilirubin,Total 0.9 mg/dL (0.2-1.2); Calcium 9.1 mg/dL (8.6-10.8); Carbon Dioxide 21 mEq/L (19-29); Chloride 109 mEq/L (98-109); Globulin 3.4 g/dL (2.4-3.5); Glucose 92 mg/dL (70-99); Osmolality,Calculated 296 (280-300); Potassium 3.6 mEq/L (3.5-4.5); Sodium 141 mEq/L (136-145); Total Protein 5.9 g/dL (6.0-8.3); eGFR For African Americans > 60 (> 60); eGFR For Non-African Americans > 60 (> 60)
[2017-02-25] MEDS: Calcium 500 + Vit D PO SCH ×2 (08:19→22:32)
[2017-02-25] MEDS: hydroCHLOROthiazide 25 MG TABLET PO SCH (08:22)
[2017-02-25] MEDS: Lisinopril 20 MG TABLET PO SCH (08:22)
[2017-02-25 08:23] LABS: Blood Urea Nitrogen 24 mg/dL (7-20)
[2017-02-25] MEDS: Pregabalin 50 MG CAPSULE PO SCH ×2 (08:30→22:31)
[2017-02-25] MEDS: Ascorbic Acid 500 MG TABLET PO SCH ×2 (08:31→22:31)
[2017-02-25] MEDS: Ranolazine 500 MG TAB.ER.12H PO SCH ×2 (08:31→22:31)
[2017-02-25] MEDS: Venlafaxine XR (24 HR) 75 MG CAP.ER.24H PO SCH (08:31)
[2017-02-25] MEDS: APIXABAN 5 MG TABLET PO SCH ×2 (08:31→22:31)
[2017-02-25] MEDS: Multivit/Ca/Min/Fe/FA 1 TAB TABLET PO SCH (08:31)
[2017-02-25] MEDS: Isosorbide MONOnitrate (24 HR) 60 MG TAB.ER.24H PO SCH (08:31)
[2017-02-25] MEDS: Furosemide 40 MG TABLET PO SCH ×2 (08:32→17:08)
[2017-02-25] MEDS: Aspirin 81 MG TAB.CHEW PO SCH (08:32)
[2017-02-25] MEDS: Folic Acid 1 MG TABLET PO SCH (08:32)
[2017-02-25] MEDS: methIMAzole 5 MG TABLET PO SCH ×3 (08:32→22:31)
[2017-02-25] MEDS: Diltiazem CD (24hr) 120 MG CAPSULE PO SCH (08:32)
[2017-02-25] MEDS: Metoprolol XL (24 HR) Succ 50 MG TAB.ER.24H PO SCH (08:32)
[2017-02-25 08:36] LABS: Triiodothyronine (T3) Total 2.93 ng/mL (0.58-1.59)
--- NOTE | 2017-02-25 09:21 | Cardiology Progress Note ---
Date of Encounter: 02/25/17 Time of Encounter: 09:19 Assessment and Plan (1) Atrial fibrillation Current Visit: Yes Status: Acute Recently diagnosed with AF. ALISHA guided cardioversion unsuccessful at outside hospital. Transitioned from Cardizem gtt to PO Cardizem CD 120mg daily yesterday. Also on Toprol XL 100mg daily. Now rate controlled--24 hour tele AVG HR 68. CHADS-VASc (HTN, PVD, FM) 3. R/B/A to AC discussed with patient. She is agreeable. Start Eliquis 5 mg BID. Will romero check. TSH 0, Free T4 3.00, T4 19.53, Total T3 2.93. Recommend treatment of hyperthyroidism per IM/endocrinology. Once Eliquis is romero checked anticipate sign off from cardiology standpoint. Recommend outpt follow-up. Will coordinate. Qualifiers: Atrial fibrillation type: persistent Qualified Code(s): I48.1 - Persistent atrial fibrillation (2) CAD (coronary artery disease) Current Visit: No Status: Chronic [place] CAD, prior CABG, 1/2 patent bypass grafts. Recommend continue aspirin/statin/BB/ACEi/Imdur/Ranexa. LV function preserved. Troponins negatrive. Recent LHC performed at [facility] and last year at [place] - medical therapy recommend. Risk factor modification emphasized, tobacco cessation. Qualifiers: Coronary Disease-Associated Artery/Lesion type: [place] artery [place] vs. transplanted heart: [place] heart Associated angina: angina presence unspecified Qualified Code(s): I25.10 - Atherosclerotic heart disease of [place] coronary artery without angina pectoris Discussion w patient/family: The assessment and plan as outlined above was discussed with the patient and/or family members who expressed understanding and agreement. All questions were answered. Thank you for involving us in the care of your patient. Please call with any questions. I will discuss all the above with Dr. Cavanaugh and make changes as necessary. Subjective Principal diagnosis: A-Fib Interval history: No acute complaints this AM--denies chest pain or dyspnea. 24 hour tele AVG HR 68, A-Fib. Objective Vital Signs, Last 4 Hours Temp Pulse Resp BP Pulse Ox 02/25/17 07:48 95 02/25/17 07:23 98.3 F 66 18 119/70 95 Vital Signs Temp Pulse Resp BP Pulse Ox 02/25/17 07:48 95 02/25/17 07:23 98.3 F 66 18 119/70 95 02/25/17 04:57 98.5 F 67 16 118/59 94 02/24/17 23:55 99.0 F 64 16 90/47 95 02/24/17 22:45 97 02/24/17 21:00 98.6 F 60 14 87/47 96 02/24/17 17:02 98.1 F 62 18 86/42 92 02/24/17 14:26 86/60 02/24/17 12:12 98 F 77 16 80/42 96 Intake and Output 02/24/17 02/25/17 02/25/17 23:59 07:59 15:59 Intake Total 1000 / 1000 0 / 0 900 / 900 Output Total 0 / 0 Balance 1000 / 1000 0 / 0 900 / 900 Intake: IV Fluids 1000 / 1000 900 / 900 0.9 % Sodium Chloride 1, 1000 / 1000 900 / 900 000 ML @ 100 mls/hr IVC . Q10H ROSA Rx#:[id number] Oral 0 / 0 0 / 0 Output: Urine 0 / 0 Other: # Voids 0 0 Weight 54.2 kg Patient Weight 02/25/17 23:59 Weight 54.2 kg General: Conversant, No Apparent Distress HEENT: Atraumatic, Normocephaly, Mucus Membranes Moist Neck: No JVD, Normal carotid pulses Cardiac: Other (irregular) Lungs: Other (diminished) Neuro: Alert and responsive, No focal deficits noted Abdomen: Soft, Non-Tender Skin: No rashes noted on visualized skin Musculoskeletal: No Chest Wall Tenderness Extremities: No Clubbing, No Cyanosis, No Edema, Normal Pulses Results 02/25/17 06:17 02/25/17 07:51 Lab Results 02/25/17 02/25/17 06:17 07:51 WBC 4.4 Hgb 9.2 L Hct 29.8 L Plt Count 120 L Sodium 141 Potassium 3.6 Chloride 109 Carbon Dioxide 21 BUN 24 H D Creatinine 0.70 Glucose 92 Calcium 9.1 Total Bilirubin 0.9 AST 35 H ALT 22 Alkaline Phosphatase 215 H Short CBC 02/25/17 Range/Units 06:17 WBC 4.4 (4.3-11.1) K/mcL Hgb 9.2 L (11.5-15.4) g/dL Hct 29.8 L (35.3-44.9) % Plt Count 120 L (140-400) K/mcL Neutrophils # 2.6 (1.6-8.9) K/mcL BMP 02/25/17 Range/Units 07:51 Sodium 141 (136-145) mEq/L Potassium 3.6 (3.5-4.5) mEq/L Chloride 109 (98-109) mEq/L Carbon Dioxide 21 (19-29) mEq/L BUN 24 H D (7-20) mg/dL Creatinine 0.70 (0.57-1.11) mg/dL Glucose 92 (70-99) mg/dL Calcium 9.1 (8.6-10.8) mg/dL Cardiac Enzymes 02/24/17 Range/Units 12:37 Troponin I 0.02 (0-0.03) ng/mL Liver Function 02/25/17 Range/Units 07:51 Total Bilirubin 0.9 (0.2-1.2) mg/dL AST 35 H (5-34) Units/L ALT 22 (0-55) Units/L Alkaline Phosphatase 215 H (38-126) Units/L Albumin 2.5 L (3.5-5.0) g/dL Active Medications Acetaminophen (Tylenol) 650 mg PO Q6HR PRN PRN Reason: Mild Pain or fever>100.4 Stop: 08/26/17 03:29 Alprazolam (Xanax) 0.25 mg PO BID PRN; Protocol PRN Reason: anxiety Stop: 08/26/17 03:37 Apixaban (Eliquis) 5 mg PO BID ROSA Stop: 08/26/17 21:01 Last Admin: 02/25/17 08:31 Dose: 5 mg Ascorbic Acid (Vitamin C) 250 mg PO BID ROSA Stop: 08/26/17 09:01 Last Admin: 02/25/17 08:31 Dose: 250 mg Aspirin (Aspirin) 81 mg PO DAILY ROSA Stop: 08/27/17 09:01 Last Admin: 02/25/17 08:32 Dose: 81 mg Diltiazem HCl (Cardizem Cd) 120 mg PO DAILY ROSA Stop: 08/26/17 12:31 Last Admin: 02/25/17 08:32 Dose: 120 mg Ergocalciferol (Drisdol (50,000 Unit)) 50,000 unit PO DAVIS ROAS Stop: 08/27/17 09:01 Last Admin: 02/25/17 08:32 Dose: 50,000 unit Folic Acid (Folic Acid) 2 mg PO DAILY ROSA Stop: 08/26/17 09:01 Last Admin: 02/25/17 08:32 Dose: 2 mg Furosemide (Lasix) 40 mg PO BIDDIURETIC ROSA Stop: 08/26/17 08:01 Last Admin: 02/25/17 08:32 Dose: 40 mg Hydrochlorothiazide (Hydrochlorothiazide) 25 mg PO DAILY ROSA PRN Reason: Protocol Stop: 08/26/17 09:01 Last Admin: 02/25/17 08:22 Dose: Not Given Isosorbide Mononitrate (Imdur) 120 mg PO DAILY [facility] Stop: 08/26/17 09:01 Last Admin: 02/25/17 08:31 Dose: 120 mg Lisinopril (Zestril) 40 mg PO DAILY ROSA Stop: 08/26/17 09:01 Last Admin: 02/25/17 08:22 Dose: Not Given Melatonin (Melatonin) 3 mg PO HS PRN PRN Reason: Insomnia Stop: 08/26/17 04:52 Methimazole (Tapazole) 5 mg PO TID [facility] Stop: 08/26/17 09:01 Last Admin: 02/25/17 08:32 Dose: 5 mg Metoprolol Succinate (Toprol Xl) 100 mg PO DAILY [facility] Stop: 08/26/17 09:01 Last Admin: 02/25/17 08:32 Dose: 100 mg Multivitamins/Calcium (Thera M Plus) 1 tab PO DAILY [facility] Stop: 08/26/17 09:01 Last Admin: 02/25/17 08:31 Dose: 1 tab Naloxone HCl (Narcan) 0.4 mg IVP Q2MIN PRN PRN Reason: Opioid Reversal Stop: 08/26/17 03:29 Nitroglycerin (Nitroglycerin) 0.4 mg SL Q5M PRN PRN Reason: Chest Pain Stop: 08/26/17 03:37 Omeprazole (Prilosec) 20 mg PO 0630 ROSA Stop: 08/26/17 06:31 Last Admin: 02/25/17 05:39 Dose: 20 mg Ondansetron HCl (Zofran) 4 mg IVP Q8HR PRN PRN Reason: Nausea And Vomiting Stop: 08/26/17 03:29 Oxycodone HCl (Oxycontin) 30 mg PO Q12HR ROSA Stop: 08/26/17 06:01 Last Admin: 02/25/17 05:39 Dose: 30 mg Oxycodone/Acetaminophen (Percocet 10/325) 1 each PO Q6H PRN PRN Reason: Pain Stop: 08/26/17 03:37 Last Admin: 02/24/17 09:58 Dose: 1 each Paroxetine HCl (Paxil) 20 mg PO DAILY ROSA PRN Reason: Protocol Stop: 08/26/17 09:01 Last Admin: 02/25/17 08:32 Dose: 20 mg Pharmacy Profile Note (Patient Taking Own Medication) 1 each PO BID ROSA Stop: 08/26/17 09:01 Last Admin: 02/25/17 08:19 Dose: Not Given Pregabalin (Lyrica) 200 mg PO BID ROSA Stop: 08/26/17 09:01 Last Admin: 02/25/17 08:30 Dose: 200 mg Ranolazine (Ranexa) 1,000 mg PO BID [facility]A Stop: 08/26/17 09:01 Last Admin: 02/25/17 08:31 Dose: 1,000 mg Simvastatin (Zocor) 20 mg PO HS ROSA PRN Reason: Protocol Stop: 08/26/17 21:01 Last Admin: 02/24/17 22:57 Dose: 20 mg Venlafaxine HCl (Effexor Xr) 75 mg PO DAILY [facility]A Stop: 08/26/17 09:01 Last Admin: 02/25/17 08:31 Dose: 75 mg Vitamin E (Vitamin E) 1,000 unit PO DAILY [facility]A Stop: 08/26/17 09:01 Last Admin: 02/25/17 08:30 Dose: 1,000 unit - EKG Interpretation EKG results cardiology: other (24 hour tele AVG HR 68, A-Fib) Consult Discharge Plan - Plan Referrals: Matthias Polo MD [Primary Care Provider] -
--- NOTE | 2017-02-25 09:31 | Internal Med Progress Note ---
Date of Encounter: 02/26/17 Time of Encounter: 09:29 - Assessment and plan (1) Atrial fibrillation with RVR Current Visit: Yes Status: Acute Assessment and plan: Admitted with atrial fibrillation with rapid ventricular rate. She was on Cardizem drip. Successfully transitioned her from intravenous route to oral route. Cardiology on the board. Cardiology recommended anticoagulation with Elliquis. (2) CAD (coronary artery disease) Current Visit: No Status: Chronic Assessment and plan: Stable at this point. we will continue home medication. Qualifiers: Coronary Disease-Associated Artery/Lesion type: [place] artery [place] vs. transplanted heart: [place] heart Associated angina: angina presence unspecified Qualified Code(s): I25.10 - Atherosclerotic heart disease of [place] coronary artery without angina pectoris (3) Hyperthyroidism Current Visit: Yes Status: Acute Assessment and plan: Elevated free T4/T4 along with T3. Plan We will do further workup in terms of TSA/TSI and ultrasound of the thyroid Will continue methimazole at this point. (4) Syncope Current Visit: No Status: Acute Assessment and plan: She will have an episode of syncope. We will get a CT scan of the head to rule out any CVA. Qualifiers: Syncope type: unspecified Qualified Code(s): R55 - Syncope and collapse - Subjective Interval history: Seen and examined. Chart reviewed. Patient is very tremulous and has weakness in right upper extremity. She denies any chest pain, shortness of breath, abdominal pain or diarrhea. - Constitutional Vitals: Temp Pulse Resp BP Pulse Ox 98.3 F 66 18 119/70 95 02/25/17 07:23 02/25/17 07:23 02/25/17 07:23 02/25/17 07:23 02/25/17 07:48 General appearance: Present: A&O X 3, pleasant, no acute distress, answers questions appropriately - Head Head exam: Present: atraumatic, normocephalic - Eye Eye exam: Present: PERRL, conjuntiva pink, sclera anicteric Pupils: Present: PERRL - Neck Neck exam general surgery: Present: supple, trachea midline. Absent: lymphadenopathy - Respiratory Respiratory exam: Present: CTAB. Absent: accessory muscle use, rales, rhonchi, wheezes - Cardiovascular Cardiovascular exam: Present: RRR, +S1, +S2. Absent: diastolic murmur, gallop, rubs, systolic murmur - GI/Abdominal GI/Abdominal exam: Present: normal bowel sounds, soft, no peritoneal signs. Absent: distended, tenderness - Extremities Exam Extremities exam: Present: warm, radial pulses palpable and symetrical. Absent : calf tenderness, cyanotic, pedal edema - Neurological Exam Neurological exam: Present: CN II-XII intact, oriented X3, no focal deficits. Absent: pronater drift, facial droop, speech deficit - Skin Skin exam: Present: dry, intact Internal Medicine: Result - Labs CBC & Chem 7: 02/26/17 04:35 02/26/17 04:35 Labs: Short CBC 02/25/17 Range/Units 06:17 WBC 4.4 (4.3-11.1) K/mcL Hgb 9.2 L (11.5-15.4) g/dL Hct 29.8 L (35.3-44.9) % Plt Count 120 L (140-400) K/mcL Neutrophils # 2.6 (1.6-8.9) K/mcL BMP 02/25/17 07:51 Sodium 141 Potassium 3.6 Chloride 109 Carbon Dioxide 21 BUN 24 H D Creatinine 0.70 Glucose 92 Calcium 9.1 Liver Function 02/25/17 Range/Units 07:51 Total Bilirubin 0.9 (0.2-1.2) mg/dL AST 35 H (5-34) Units/L ALT 22 (0-55) Units/L Alkaline Phosphatase 215 H (38-126) Units/L Albumin 2.5 L (3.5-5.0) g/dL - ABG Interpretation ABG results: PT/INR, D-dimer PT 12.4 Seconds (9.4-12.1) H 02/23/17 14:55 Consult Discharge Plan - Plan Referrals: Matthias Polo MD [Primary Care Provider] - 03/07/17 1:15 pm Anna Ramos CNP [Partnered Physician] - 03/12/17 3:30 pm
[2017-02-26] MEDS: *HR* OxyCODONE/APAP 10/325 TABLET PO PRN (04:38)
[2017-02-26 04:51] LABS: Basophils % 0.1 %; Hematocrit 31.5 % (35.3-44.9); Hemoglobin 10.1 g/dL (11.5-15.4); Immature Granulocytes % 0.3 % (0-4); Lymphocytes # 1.5 K/mcL (0.6-4.6); Mean Corpuscular HGB Conc 32.1 g/dL (31.6-35.5); Mean Corpuscular Hemoglobin 26.7 pg (28.0-33.3); Mean Corpuscular Volume 83.3 fL (83.0-100.0); Mean Platelet Volume 12.7 fL (9.4-12.4); Monocytes # 0.5 K/mcL (0.0-1.3); Neutrophils # 7.2 K/mcL (1.6-8.9); Platelet Count 124 K/mcL (140-400); Red Blood Count 3.78 M/mcL (3.82-4.97); Red Cell Distribution Width 15.5 % (11.5-14.5); Segmented Neutrophils % 78.6 %
[2017-02-26 05:12] LABS: Alanine Aminotransferase 26 Units/L (0-55); Albumin 2.6 g/dL (3.5-5.0); Albumin/Globulin Ratio 0.7 (1.1-2.2); Alkaline Phosphatase 248 Units/L (38-126); Aspartate Amino Transferase 46 Units/L (5-34); BUN/Creatinine Ratio 42 (6-26); Bilirubin,Total 1.4 mg/dL (0.2-1.2); Blood Urea Nitrogen 24 mg/dL (7-20); Calcium 9.2 mg/dL (8.6-10.8); Carbon Dioxide 21 mEq/L (19-29); Chloride 107 mEq/L (98-109); Globulin 3.8 g/dL (2.4-3.5); Glucose 150 mg/dL (70-99); Osmolality,Calculated 297 (280-300); Potassium 3.9 mEq/L (3.5-4.5); Sodium 140 mEq/L (136-145); Total Protein 6.4 g/dL (6.0-8.3); eGFR For African Americans > 60 (> 60); eGFR For Non-African Americans > 60 (> 60)
--- NOTE | 2017-02-26 08:49 | Electrocardiograph Report ---
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
[2017-02-26] MEDS: *HR* OxyCODONE ER (12 HR) 10 MG TABLET PO SCH ×2 (10:51→20:03)
[2017-02-26] MEDS: Metoprolol XL (24 HR) Succ 50 MG TAB.ER.24H PO SCH (10:52)
[2017-02-26] MEDS: Folic Acid 1 MG TABLET PO SCH (10:52)
[2017-02-26] MEDS: APIXABAN 5 MG TABLET PO SCH ×2 (10:52→22:47)
[2017-02-26] MEDS: Aspirin 81 MG TAB.CHEW PO SCH (10:52)
[2017-02-26] MEDS: Diltiazem CD (24hr) 120 MG CAPSULE PO SCH (10:52)
[2017-02-26] MEDS: Pregabalin 50 MG CAPSULE PO SCH ×2 (10:52→22:47)
[2017-02-26] MEDS: Venlafaxine XR (24 HR) 75 MG CAP.ER.24H PO SCH (10:52)
[2017-02-26] MEDS: Multivit/Ca/Min/Fe/FA 1 TAB TABLET PO SCH (10:53)
[2017-02-26] MEDS: methIMAzole 5 MG TABLET PO SCH ×3 (10:53→22:47)
[2017-02-26] MEDS: Ranolazine 500 MG TAB.ER.12H PO SCH ×2 (10:53→22:47)
[2017-02-26] MEDS: Furosemide 40 MG TABLET PO SCH ×2 (10:53→16:25)
[2017-02-26] MEDS: Ascorbic Acid 500 MG TABLET PO SCH ×2 (10:53→22:47)
[2017-02-26] MEDS: Isosorbide MONOnitrate (24 HR) 60 MG TAB.ER.24H PO SCH (10:53)
[2017-02-26] MEDS: hydroCHLOROthiazide 25 MG TABLET PO SCH (10:54)
[2017-02-26] MEDS: Lisinopril 20 MG TABLET PO SCH (10:54)
[2017-02-26] MEDS: Calcium 500 + Vit D PO SCH ×2 (10:54→22:53)
[2017-02-26] MEDS ORDERED: 0.9 % Sodium Chloride 500 ML ONE ×2 (16:19→17:34)
[2017-02-26] MEDS ORDERED: 0.9 % Sodium Chloride 500 ML IV ONE ×2 (16:20→17:12)
--- NOTE | 2017-02-26 17:10 | Internal Med Progress Note ---
Date of Encounter: 02/26/17 Time of Encounter: 17:05 - Assessment and plan (1) Atrial fibrillation with RVR Current Visit: Yes Status: Acute Assessment and plan: Admitted with atrial fibrillation with rapid ventricular rate. She was on Cardizem drip. Successfully transitioned her from intravenous route to oral route. Cardiology on the board. Cardiology recommended anticoagulation with Elliquis. 02/26/2017 Atrial fibrillation with rapid ventricular rate is likely secondary to hyperthyroidism. Patient's heart rate is very well controlled. Present anticoagulation is Elliquis. We will continue to follow recommendations from cardiology. (2) CAD (coronary artery disease) Current Visit: No Status: Chronic Assessment and plan: Stable at this point. we will continue home medication. Qualifiers: Coronary Disease-Associated Artery/Lesion type: [place] artery [place] vs. transplanted heart: [place] heart Associated angina: angina presence unspecified Qualified Code(s): I25.10 - Atherosclerotic heart disease of [place] coronary artery without angina pectoris (3) Hyperthyroidism Current Visit: Yes Status: Acute Assessment and plan: Elevated free T4/T4 along with T3. Plan We will do further workup in terms of TSA/TSI and ultrasound of the thyroid Will continue methimazole at this point. 02/26/2017 Elevated free T4, total T4 and T3. TSH: 0 On methimazole 5 mg 3 times a day Ultrasound thyroid: Heterogenous blood flow, no thyroid nodules detected. Thyroid antibodies/thyroid-stimulating immunoglobulin: Results pending I have discussed this case with the patient's PCP. If we get those results back and if patient is clinically stable then as we will be happy to refer to agile project manager as outpatient. (4) Syncope Current Visit: No Status: Acute Assessment and plan: She will have an episode of syncope. We will get a CT scan of the head to rule out any CVA. Qualifiers: Syncope type: unspecified Qualified Code(s): R55 - Syncope and collapse - Subjective Interval history: Seen and examined. Chart reviewed. Patient is very tremulous and has weakness in right upper extremity. She denies any chest pain, shortness of breath, abdominal pain or diarrhea. 02/26/2017 Seen and examined. Chart reviewed. Patient is much comfortable as compared to yesterday. Denies chest pain, shortness of breath or diarrhea. - Constitutional Vitals: Temp Pulse Resp BP Pulse Ox 97.8 F 50 20 81/45 99 02/26/17 16:11 02/26/17 16:11 02/26/17 16:11 02/26/17 16:12 02/26/17 16:11 General appearance: Present: A&O X 3, pleasant, no acute distress, answers questions appropriately - Head Head exam: Present: atraumatic, normocephalic - Eye Eye exam: Present: PERRL, conjuntiva pink, sclera anicteric Pupils: Present: PERRL - Neck Neck exam general surgery: Present: supple, trachea midline. Absent: lymphadenopathy - Respiratory Respiratory exam: Present: CTAB. Absent: accessory muscle use, rales, rhonchi, wheezes - Cardiovascular Cardiovascular exam: Present: RRR, +S1, +S2. Absent: diastolic murmur, gallop, rubs, systolic murmur - GI/Abdominal GI/Abdominal exam: Present: normal bowel sounds, soft, no peritoneal signs. Absent: distended, tenderness - Extremities Exam Extremities exam: Present: warm, radial pulses palpable and symetrical. Absent : calf tenderness, cyanotic, pedal edema - Neurological Exam Neurological exam: Present: CN II-XII intact, oriented X3, no focal deficits. Absent: pronater drift, facial droop, speech deficit - Skin Skin exam: Present: dry, intact Internal Medicine: Result - Labs CBC & Chem 7: 02/26/17 04:35 02/26/17 04:35 Labs: Short CBC 02/26/17 Range/Units 04:35 WBC 9.2 D (4.3-11.1) K/mcL Hgb 10.1 L (11.5-15.4) g/dL Hct 31.5 L (35.3-44.9) % Plt Count 124 L (140-400) K/mcL Neutrophils # 7.2 (1.6-8.9) K/mcL BMP 02/26/17 04:35 Sodium 140 Potassium 3.9 Chloride 107 Carbon Dioxide 21 BUN 24 H Creatinine 0.57 Glucose 150 H Calcium 9.2 Liver Function 02/26/17 Range/Units 04:35 Total Bilirubin 1.4 H D (0.2-1.2) mg/dL AST 46 H (5-34) Units/L ALT 26 (0-55) Units/L Alkaline Phosphatase 248 H (38-126) Units/L Albumin 2.6 L (3.5-5.0) g/dL - ABG Interpretation ABG results: PT/INR, D-dimer PT 12.4 Seconds (9.4-12.1) H 02/23/17 14:55 - Impressions Impressions Head CT 02/25/17 08:41 IMPRESSION: Mild cerebral atrophy. Mild chronic small vessel ischemic disease. No acute brain parenchymal abnormality. D/ / 02/25/2017 10:21:41 Angela Paredes MD / cristian Interpreting Provider: Angela Paredes MD Thyroid Ultrasound 02/26/17 09:00 IMPRESSION: Mildly enlarged, heterogeneous and hypervascular thyroid gland without focal nodule. Findings may reflect Graves disease in the correct clinical setting. D/ / 02/26/2017 10:31:14 Khadra Villalpando MD / becky Interpreting Provider: Khadra Villalpando MD Consult Discharge Plan - Plan Referrals: Matthias Polo MD [Primary Care Provider] - 03/07/17 1:15 pm Anna Ramos CNP [Partnered Physician] - 03/12/17 3:30 pm
[2017-02-26] MEDS: 0.9 % Sodium Chloride 1,000 ML IV SCH (22:52)
[2017-02-27 06:09] LABS: Alanine Aminotransferase 21 Units/L (0-55); Albumin 2.3 g/dL (3.5-5.0); Albumin/Globulin Ratio 0.6 (1.1-2.2); Alkaline Phosphatase 209 Units/L (38-126); Aspartate Amino Transferase 28 Units/L (5-34); BUN/Creatinine Ratio 57 (6-26); Bilirubin,Total 1.2 mg/dL (0.2-1.2); Blood Urea Nitrogen 34 mg/dL (7-20); Calcium 9.2 mg/dL (8.6-10.8); Carbon Dioxide 23 mEq/L (19-29); Chloride 109 mEq/L (98-109); Globulin 3.6 g/dL (2.4-3.5); Glucose 124 mg/dL (70-99); Osmolality,Calculated 301 (280-300); Potassium 3.8 mEq/L (3.5-4.5); Sodium 141 mEq/L (136-145); Total Protein 5.9 g/dL (6.0-8.3); eGFR For African Americans > 60 (> 60); eGFR For Non-African Americans > 60 (> 60)
[2017-02-27 06:15] LABS: Basophils % 0.2 %; Eosinophils % 0.6 %; Hematocrit 29.4 % (35.3-44.9); Hemoglobin 9.3 g/dL (11.5-15.4); Immature Granulocytes % 0.5 % (0-4); Lymphocytes # 1.5 K/mcL (0.6-4.6); Lymphocytes % 23.3 %; Mean Corpuscular HGB Conc 31.6 g/dL (31.6-35.5); Mean Corpuscular Volume 85.2 fL (83.0-100.0); Mean Platelet Volume 12.4 fL (9.4-12.4); Monocytes # 0.5 K/mcL (0.0-1.3); Monocytes % 8.1 %; Neutrophils # 4.2 K/mcL (1.6-8.9); Platelet Count 102 K/mcL (140-400); Red Blood Count 3.45 M/mcL (3.82-4.97); Red Cell Distribution Width 15.7 % (11.5-14.5); Segmented Neutrophils % 67.3 %
[2017-02-27] MEDS: *HR* OxyCODONE ER (12 HR) 10 MG TABLET PO SCH ×2 (06:19→18:06)
[2017-02-27] MEDS: Folic Acid 1 MG TABLET PO SCH (08:15)
[2017-02-27] MEDS: Pregabalin 50 MG CAPSULE PO SCH ×2 (08:15→21:18)
[2017-02-27] MEDS: Ranolazine 500 MG TAB.ER.12H PO SCH ×2 (08:15→21:19)
[2017-02-27] MEDS: Aspirin 81 MG TAB.CHEW PO SCH (08:16)
[2017-02-27] MEDS: Multivit/Ca/Min/Fe/FA 1 TAB TABLET PO SCH (08:16)
[2017-02-27] MEDS: Isosorbide MONOnitrate (24 HR) 60 MG TAB.ER.24H PO SCH (08:16)
[2017-02-27] MEDS: methIMAzole 5 MG TABLET PO SCH ×3 (08:16→21:21)
[2017-02-27] MEDS: Ascorbic Acid 500 MG TABLET PO SCH ×2 (08:16→21:19)
[2017-02-27] MEDS: Venlafaxine XR (24 HR) 75 MG CAP.ER.24H PO SCH (08:17)
[2017-02-27] MEDS: APIXABAN 5 MG TABLET PO SCH ×2 (08:17→21:19)
[2017-02-27] MEDS: Calcium 500 + Vit D PO SCH ×2 (08:27→21:22)
[2017-02-27] MEDS: Metoprolol XL (24 HR) Succ 50 MG TAB.ER.24H PO SCH (08:28)
[2017-02-27 09:13] LABS: Magnesium 1.6 mg/dL (1.6-2.6)
[2017-02-27] MEDS: Furosemide 40 MG TABLET PO SCH ×2 (10:33→18:06)
[2017-02-27] MEDS: Lisinopril 20 MG TABLET PO SCH (10:33)
[2017-02-27 10:42] LABS: Creatine Kinase 79 Units/L (29-168)
[2017-02-27] MEDS: 0.9 % Sodium Chloride 1,000 ML IV SCH (13:25)
[2017-02-27] MEDS ORDERED: *HR* OxyCODONE/APAP 10/325 TABLET PO PRN (13:30)
--- NOTE | 2017-02-27 16:07 | Internal Med Progress Note ---
<Colette Guan - Last Filed: 02/27/17 16:04> Date of Encounter: 02/27/17 Time of Encounter: 09:00 - Assessment and plan (1) Weakness generalized Current Visit: Yes Status: Acute Assessment and plan: patient with ?new onset generalized weakness - having trouble sitting up in bed without support and bringing her cup to her mouth --MRI brain and MR angio head ordered --PT/OT consult ordered - appreciate recommendations -patient adamant that she is going home upon discharge --urinalysis (2) Atrial fibrillation with RVR Current Visit: Yes Status: Resolved Assessment and plan: RVR resolved, HR 50-56 rate controlled on metoprolol anticoagulated with eliquis (3) Hyperthyroidism Current Visit: Yes Status: Acute Assessment and plan: Elevated free T4/T4 along with T3. Plan We will do further workup in terms of TSA/TSI and ultrasound of the thyroid Will continue methimazole at this point. 02/26/2017 Elevated free T4, total T4 and T3. TSH: 0 On methimazole 5 mg 3 times a day Ultrasound thyroid: Heterogenous blood flow, no thyroid nodules detected. Thyroid antibodies/thyroid-stimulating immunoglobulin: Results pending I have discussed this case with the patient's PCP. If we get those results back and if patient is clinically stable then as we will be happy to refer to advertising agency manager as outpatient. 02/27/2017 methimazole was increased to 10 mg TID yesterday evening Thyroid antibodies/thyroid-stimulating immunoglobulin: Results pending (4) Carotid artery disease Current Visit: No Status: Chronic Qualifiers: Laterality: right Qualified Code(s): I77.9 - Disorder of arteries and arterioles, unspecified (5) Syncope Current Visit: No Status: Acute Assessment and plan: patient had episode of syncope while inpatient head CT negative Qualifiers: Syncope type: unspecified Qualified Code(s): R55 - Syncope and collapse (6) Frail elderly Current Visit: No Status: Acute - Subjective Interval history: Patient noted to have generalized weakness by nurse this morning who notified me. She was having trouble sitting upright and holding her cup. She denies shortness of breath and chest pain and adamantly states that she is going home on discharge. - Constitutional Vitals: Temp Pulse Resp BP Pulse Ox 98.0 F 54 16 124/61 97 02/27/17 11:48 02/27/17 11:48 02/27/17 11:48 02/27/17 11:48 02/27/17 11:48 General appearance: Present: A&O X 3, pleasant, no acute distress, answers questions appropriately Exam: appears older than stated age - Head Head exam: Present: atraumatic, normocephalic - Eye Eye exam: Present: EOMI, PERRL, conjuntiva pink - Respiratory Respiratory exam: Present: CTAB - Cardiovascular Cardiovascular exam: Present: irregular rhythm, +S1, +S2 - GI/Abdominal GI/Abdominal exam: Present: normal bowel sounds, soft. Absent: tenderness - Extremities Exam Extremities exam: Present: normal inspection, warm. Absent: pedal edema Additional comments: dorsalis pedis pulses +2/4 - Neurological Exam Neurological exam: Present: alert, oriented X3. Absent: strengths equal and symetr throughout - Expanded Neurological Exam Speech: Present: fluid speech Cerebellar function: finger to nose: Abnormal Right, Abnormal Left Neuro motor strength exam: LUE: 4, RUE: 4, LLE: 4, RLE: 4 Coma Scale Eye Opening: Spontaneous Coma Scale Motor Response: Obeys Commands Coma Scale Verbal Response: Oriented Coma Scale Total: 15 - Skin Skin exam: Present: dry, warm Internal Medicine: Result - Labs CBC & Chem 7: 02/27/17 05:45 02/27/17 05:45 Labs: Short CBC 02/27/17 Range/Units 05:45 WBC 6.3 (4.3-11.1) K/mcL Hgb 9.3 L (11.5-15.4) g/dL Hct 29.4 L (35.3-44.9) % Plt Count 102 L (140-400) K/mcL Neutrophils # 4.2 (1.6-8.9) K/mcL BMP 02/27/17 05:45 Sodium 141 Potassium 3.8 Chloride 109 Carbon Dioxide 23 BUN 34 H D Creatinine 0.60 Glucose 124 H Calcium 9.2 Liver Function 02/27/17 Range/Units 05:45 Total Bilirubin 1.2 (0.2-1.2) mg/dL AST 28 (5-34) Units/L ALT 21 (0-55) Units/L Alkaline Phosphatase 209 H (38-126) Units/L Albumin 2.3 L (3.5-5.0) g/dL - ABG Interpretation ABG results: PT/INR, D-dimer PT 12.4 Seconds (9.4-12.1) H 02/23/17 14:55 Consult Discharge Plan - Plan Referrals: Matthias Polo MD [Primary Care Provider] - 03/07/17 1:15 pm Anna Ramos CNP [Partnered Physician] - 03/12/17 3:30 pm <Dagoberto Mcdaniels - Last Filed: 02/27/17 18:03> Date of Encounter: 02/27/17 - Assessment and plan (1) Atrial fibrillation Current Visit: Yes Status: Acute Assessment and plan: Currently rate controlled. Continue current meds Qualifiers: Atrial fibrillation type: persistent Qualified Code(s): I48.1 - Persistent atrial fibrillation (2) Hyperthyroidism Current Visit: Yes Status: Acute (3) Weakness generalized Current Visit: Yes Status: Acute (4) HTN (hypertension) Current Visit: No Status: Chronic Assessment and plan: Will continue to follow and adjust meds as needed. Qualifiers: Hypertension type: essential hypertension Qualified Code(s): I10 - Essential (primary) hypertension (5) CAD (coronary artery disease) Current Visit: No Status: Chronic Assessment and plan: Stable at this point. Qualifiers: Coronary Disease-Associated Artery/Lesion type: [place] artery [place] vs. transplanted heart: [place] heart Associated angina: angina presence unspecified Qualified Code(s): I25.10 - Atherosclerotic heart disease of [place] coronary artery without angina pectoris - Constitutional Vitals: Temp Pulse Resp BP Pulse Ox 98.2 F 54 16 135/69 96 02/27/17 17:14 02/27/17 17:14 02/27/17 17:14 02/27/17 17:14 02/27/17 17:14 Internal Medicine: Result - Labs CBC & Chem 7: 02/27/17 05:45 02/27/17 05:45 Labs: Short CBC 02/27/17 Range/Units 05:45 WBC 6.3 (4.3-11.1) K/mcL Hgb 9.3 L (11.5-15.4) g/dL Hct 29.4 L (35.3-44.9) % Plt Count 102 L (140-400) K/mcL Neutrophils # 4.2 (1.6-8.9) K/mcL BMP 02/27/17 05:45 Sodium 141 Potassium 3.8 Chloride 109 Carbon Dioxide 23 BUN 34 H D Creatinine 0.60 Glucose 124 H Calcium 9.2 Liver Function 02/27/17 Range/Units 05:45 Total Bilirubin 1.2 (0.2-1.2) mg/dL AST 28 (5-34) Units/L ALT 21 (0-55) Units/L Alkaline Phosphatase 209 H (38-126) Units/L Albumin 2.3 L (3.5-5.0) g/dL - ABG Interpretation ABG results: PT/INR, D-dimer PT 12.4 Seconds (9.4-12.1) H 02/23/17 14:55 - Impressions Impressions Brain MRI 02/27/17 13:36 IMPRESSION: Mild chronic small vessel ischemic changes. No acute intracranial abnormality. D/ / 02/27/2017 17:29:40 Angela Paredes MD / [email or web address] Interpreting Provider: Angela Paredes MD Head MRA 02/27/17 13:37 IMPRESSION: No significant abnormality of the intracranial circulation. D/ / 02/27/2017 17:37:36 Angela Paredes MD / [facility] [place] Interpreting Provider: Angela Paredes MD - Attending Attestation I examined this patient and my medical decision-making was reviewed with the Resident Physician on 02/28/17. I agree with the documented findings, disposition and treatment plan as described except to the extent set forth below. Ms Mcdaniels is currently admitted for atrial fibrillation with RVR and hyperthyroidism. She remains moderate to high risk due to potential for worsening cardiac status. Ms. Mcdaniels is very fatigued and weak today. She feels weaker on R side. No pain. No dyspnea. Ate some of her meal this afternoon. No fever or chills. Exam Alert. Comfortable Arousable and conversant Heart irreg not tachy Lungs clear Neuro - diffusely weak - ? R greater than L Ataxic motion LUE. I/P 1. Weakness - ? focal. MRI/MRA ordered. 2. Atrial fibrillation 3. HTN Further diagnoses and plan as above.
[2017-02-27] MEDS ORDERED: *HR* OxyCODONE ER (12 HR) 10 MG TABLET PO SCH (17:30)
[2017-02-27 21:47] LABS: Bilirubin,Urine Negative (Negative); Blood,Urine Trace (Negative); Glucose,Urine (UA) Normal (Normal); Ketones,Urine Negative (Negative); Leukocyte Esterase,Urine Moderate (Negative); Nitrite,Urine Positive (Negative); Protein,Urine 30 mg/dL (Neg-Trace); Specific Gravity,Urine 1.027 (1.010-1.025)
[2017-02-27 21:49] LABS: Bacteria,Urine Many per hpf (None-Few); Squamous Epithelial Cell,Urine Many per lpf (None-Few); WBC,Urine 15-30 per hpf (0-3)
[2017-02-27 21:55] LABS: Clarity,Urine Cloudy (Clear); Color,Urine Amber (Yellow)
[2017-02-27 22:09] LABS: RBC,Urine 0-3 per hpf (0-3)
[2017-02-27 22:10] LABS: Calcium Oxalate Crystals,Urine Present
[2017-02-27 22:11] LABS: Hyaline Casts,Urine Few per lpf (None-Few)
[2017-02-27 22:13] LABS: Amorphous Sediment,Urine Few (Few); Mucus,Urine Moderate (Few)
[2017-02-27 22:14] LABS: Granular Casts,Urine Few per lpf (None Seen)
[2017-02-28] MEDS: *HR* OxyCODONE ER (12 HR) 10 MG TABLET PO SCH ×2 (05:31→16:39)
[2017-02-28 06:15] LABS: Basophils % 0.2 %; Hemoglobin 8.9 g/dL (11.5-15.4); Mean Platelet Volume 13.8 fL (9.4-12.4)
[2017-02-28 06:18] LABS: Eosinophils # 0.1 K/mcL (0.0-0.6); Eosinophils % 2.5 %; Hematocrit 28.5 % (35.3-44.9); Immature Granulocytes % 0.5 % (0-4); Immature Platelets 16.5 % (1.1-6.1); Lymphocytes # 1.4 K/mcL (0.6-4.6); Lymphocytes % 31.1 %; Mean Corpuscular HGB Conc 31.2 g/dL (31.6-35.5); Mean Corpuscular Hemoglobin 26.3 pg (28.0-33.3); Mean Corpuscular Volume 84.3 fL (83.0-100.0); Monocytes # 0.4 K/mcL (0.0-1.3); Monocytes % 8.6 %; Neutrophils # 2.5 K/mcL (1.6-8.9); Red Blood Count 3.38 M/mcL (3.82-4.97); Red Cell Distribution Width 15.4 % (11.5-14.5); Segmented Neutrophils % 57.1 %
[2017-02-28 06:32] LABS: Platelet Count 80 K/mcL (140-400)
[2017-02-28 06:35] LABS: Alanine Aminotransferase 20 Units/L (0-55); Albumin 2.2 g/dL (3.5-5.0); Albumin/Globulin Ratio 0.6 (1.1-2.2); Alkaline Phosphatase 196 Units/L (38-126); Aspartate Amino Transferase 29 Units/L (5-34); BUN/Creatinine Ratio 43 (6-26); Bilirubin,Total 1.1 mg/dL (0.2-1.2); Carbon Dioxide 24 mEq/L (19-29); Chloride 108 mEq/L (98-109); Globulin 3.5 g/dL (2.4-3.5); Glucose 89 mg/dL (70-99); Osmolality,Calculated 292 (280-300); Potassium 3.2 mEq/L (3.5-4.5); Sodium 140 mEq/L (136-145); Total Protein 5.7 g/dL (6.0-8.3); eGFR For African Americans > 60 (> 60); eGFR For Non-African Americans > 60 (> 60)
[2017-02-28 06:41] LABS: Blood Urea Nitrogen 20 mg/dL (7-20)
[2017-02-28 07:13] LABS: Thyroglobulin Antibody <0.9 IU/mL (0.0-4.0)
[2017-02-28] MEDS: Folic Acid 1 MG TABLET PO SCH (09:33)
[2017-02-28] MEDS: Aspirin 81 MG TAB.CHEW PO SCH (09:34)
[2017-02-28] MEDS: Ranolazine 500 MG TAB.ER.12H PO SCH ×2 (09:34→22:37)
[2017-02-28] MEDS: Metoprolol XL (24 HR) Succ 50 MG TAB.ER.24H PO SCH (09:34)
[2017-02-28] MEDS: Isosorbide MONOnitrate (24 HR) 60 MG TAB.ER.24H PO SCH (09:34)
[2017-02-28] MEDS: Pregabalin 50 MG CAPSULE PO SCH ×2 (09:34→22:37)
[2017-02-28] MEDS: methIMAzole 5 MG TABLET PO SCH (09:34)
[2017-02-28] MEDS: Furosemide 40 MG TABLET PO SCH ×2 (09:35→16:39)
[2017-02-28] MEDS: Venlafaxine XR (24 HR) 75 MG CAP.ER.24H PO SCH (09:35)
[2017-02-28] MEDS: Lisinopril 20 MG TABLET PO SCH (09:35)
[2017-02-28] MEDS: Multivit/Ca/Min/Fe/FA 1 TAB TABLET PO SCH (09:35)
[2017-02-28] MEDS: APIXABAN 5 MG TABLET PO SCH ×2 (09:35→22:37)
[2017-02-28] MEDS: Ascorbic Acid 500 MG TABLET PO SCH ×2 (09:35→22:37)
[2017-02-28] MEDS: Calcium 500 + Vit D PO SCH ×2 (09:35→22:38)
--- NOTE | 2017-02-28 10:01 | Discharge Summary ---
Date of Encounter: 02/28/17 Time of Encounter: 09:51 - Discharge Diagnosis (1) Weakness generalized Priority: Primary Status: Acute (2) Atrial fibrillation with RVR Priority: Primary Status: Resolved (3) Hyperthyroidism Priority: Primary Status: Acute (4) Carotid artery disease Priority: Secondary Status: Chronic Qualifiers: Laterality: right Qualified Code(s): I77.9 - Disorder of arteries and arterioles, unspecified (5) Syncope Priority: Secondary Status: Acute Qualifiers: Syncope type: unspecified Qualified Code(s): R55 - Syncope and collapse (6) Frail elderly Priority: Secondary Status: Acute - Discharge Medications Prescriptions: OxyCODONE ER (12 HR) [OxyCONTIN] 20 mg PO Q12HR #60 tab.er.12h Aspirin 81 mg PO DAILY #90 tab.chew Methimazole [Tapazole] 10 mg PO TID #90 tablet Nitrofurantoin (BID) [Macrobid] 100 mg PO BIDWM #13 capsule Home Medications: Ascorbic Acid [Vitamin C] 250 mg PO BID 01/11/16 [History] Calcium Carbonate/Vitamin D3 [Calcium 500 + Vit D Caplet] 1 tab PO BID 01/11/16 [History] Ergocalciferol (VITAMIN D2) [Vitamin D2 (50,000 UNIT)] 50,000 unit PO DAVIS [History] Folic Acid 2 mg PO DAILY 01/11/16 [History] Isosorbide MONOnitrate [Isosorbide Mononitrate ER] 120 mg PO DAILY 01/11/16 [ History] Metoprolol XL (24 HR) Succ [Toprol Xl] 100 mg PO DAILY 01/11/16 [History] Multivitamin/Iron/Folic Acid [Centrum Complete Multivit Tab] 1 tab PO DAILY [History] Nitroglycerin [Nitrostat] 0.4 mg SL Q5M PRN 01/11/16 [History] Melbeta-3/Dha/Epa/Fish Oil [Fish Oil Dr 500 mg Softgel] 1,000 mg PO DAILY [History] Pregabalin [Lyrica] 200 mg PO BID 01/11/16 [History] Ranolazine [Ranexa] 1,000 mg PO BID 01/11/16 [History] Simvastatin [Zocor] 20 mg PO HS 01/11/16 [History] Venlafaxine HCl [Effexor Xr] 75 mg PO DAILY 01/11/16 [History] Vitamin E 1,000 units PO DAILY 01/11/16 [History] Alprazolam [Xanax 1 MG Tablet] 0.25 mg PO BID PRN 10/18/16 [History] Amitriptyline [Elavil] 25 - 50 mg PO HS 10/18/16 [History] Oxycodone HCl/Acetaminophen [Percocet 10-325 mg Tablet] 1 tab PO Q6H PRN [History] Lisinopril [Zestril] 40 mg PO DAILY #0 10/21/16 [Rx] Amlodipine Besylate 2.5 mg PO DAILY 02/23/17 [History] Apixaban [Eliquis] 5 mg PO BID 02/23/17 [History] Furosemide [Lasix] 40 mg PO BID 02/23/17 [History] Hydrochlorothiazide 25 mg PO DAILY 02/23/17 [History] Megestrol Acetate [Megace] 400 mg PO DAILY 02/23/17 [History] Pantoprazole Sodium [Protonix] 40 mg PO DAILY 02/23/17 [History] Paroxetine HCl [Paxil] 20 mg PO DAILY 02/23/17 [History] Aspirin 81 mg PO DAILY #90 tab.chew 02/28/17 [Rx] Methimazole [Tapazole] 10 mg PO TID #90 tablet 02/28/17 [Rx] Nitrofurantoin (BID) [Macrobid] 100 mg PO BIDWM #13 capsule 02/28/17 [Rx] OxyCODONE ER (12 HR) [OxyCONTIN] 20 mg PO Q12HR #60 tab.er.12h 02/28/17 [Rx] Allergies/Adverse Reactions: Allergies hydrocodone [From Vicodin] Allergy (Verified 02/23/17 14:36) Swelling of Lip/Tongue/Throat Procedures/tests Complete & Pending: Procedures Performed prior 72 hours Category Date Time Status US thyroid [US] Routine Exams 02/26/17 09:00 Draft MR angio head wo con [MR] Routine MRI 02/27/17 13:37 Draft MR head/brain wo con [MR] Routine MRI 02/27/17 13:36 Draft Date of admission: 02/24/17 15:36 Primary care physician: Matthias Polo MD Consults: 02/27/17 09:31 Consult to Physical Therapy [CONS] Routine Comment: Evaluate, develop and implement POC OT [Consult to Occupational Therapy] [CONS] Routine Comment: Evaluate, develop and implement POC Discharging clinician: Colette Guan Anticipated date of discharge: 02/28/17 - Patient Status Disposition: Home Health Service Condition: Fair Overall status at discharge: patient is progressing back to baseline - Discharge Instructions Follow Up With: Matthias Polo MD [Primary Care Provider] - 03/07/17 1:15 pm Anna Ramos CNP [Partnered Physician] - 03/12/17 3:30 pm - Diet and Activity Diet: low fat, low cholesterol Interval History: Patient looks much better today. She is awake and alert, neurologically intact , and has much more strength in her limbs. Hospital course: Ms. Mcdaniels is a 61 year old female with a PMH of CAD, HTN, HLD, and CABG admitted for a fib with RVR. She was recently discharged from [facility] for the same diagnosis. She was admitted from her hospital follow-up visit with her primary care provider - she had not started her medication for A. fib until that follow-up visit had occurred. She was successfully rate controlled with Cardizem which was switched to Eliquis. She was started on methimazole for hyperthyroidism at her previous hospitalization. Per her PCP note she was not hyperthyroid before. Her TSH this hospitalization is 0. Her methimazole was increased from 5 mg 3 times a day to 10 mg 3 times a day due to an episode of bradycardia and hypotension while inpatient. She also had an episode of syncope - follow-up head CT was negative. She had one day of generalized weakness with some neurologic ataxia - no abnormal labs noted, her high-dose OxyContin 30 mg home medication was decreased to 20 mg. The patient was much more alert the following morning. She is adamant that she wants to go home on hospital discharge regardless of physical therapy's recommendations that she go to an extended care facility for rehabilitation. On day of discharge patient is doing much better, she is awake and alert, she is neurologically intact. Plan for discharge pending physical therapy sign off with contingency of home health physical therapy which patient has agreed to. - Time Spent with Patient Total time spent providing and/or coordinating discharge services: - Constitutional Vitals: Temp Pulse Resp BP Pulse Ox 97.8 F 50 16 124/64 97 02/28/17 07:24 02/28/17 07:24 02/28/17 07:24 02/28/17 07:24 02/28/17 07:24 General appearance: Present: A&O X 3, pleasant, no acute distress, answers questions appropriately - Head Head exam: Present: atraumatic, normocephalic - Eye Eye exam: Present: EOMI, PERRL, sclera anicteric - Neck Neck exam general surgery: Present: supple - Respiratory Respiratory exam: Present: CTAB - Cardiovascular Cardiovascular exam: Present: irregular rhythm, +S1, +S2 - GI/Abdominal GI/Abdominal exam: Present: normal bowel sounds, soft. Absent: tenderness - Extremities Exam Extremities exam: Present: normal inspection, warm. Absent: pedal edema Additional comments: dosalis pedis pulses 2/4 - Neurological Exam Neurological exam: Present: alert, oriented X3, no focal deficits - Skin Skin exam: Present: dry, warm
--- NOTE | 2017-02-28 10:19 | Physician Discharge Referral ---
Home Health/Hosp Referral Info Transfer to: Home Health Attending Provider: nilsa vaughn Provider in Charge Post Discharge: PCP - Diagnosis (1) Weakness generalized Priority: Primary Status: Acute (2) Atrial fibrillation with RVR Priority: Secondary Status: Resolved (3) Hyperthyroidism Priority: Secondary Status: Acute (4) Carotid artery disease Priority: Secondary Status: Chronic (5) Syncope Priority: Secondary Status: Acute (6) Frail elderly Priority: Primary Status: Acute - Respiratory Orders None Smoking Cessation: Smoking cessation has been advised. For more information, call the [place] [employer] Quit Line at 4-252-CIXD-NOW. - Diet/Nutrition Diet/Nutrition Orders: Cardiac - Activity Activity Orders: Ambulate - Services Needed Following services are medically necessary services: Physical Therapy - Transfer Medications Prescriptions: OxyCODONE ER (12 HR) [OxyCONTIN] 20 mg PO Q12HR #60 tab.er.12h Aspirin 81 mg PO DAILY #90 tab.chew Methimazole [Tapazole] 10 mg PO TID #90 tablet Nitrofurantoin (BID) [Macrobid] 100 mg PO BIDWM #13 capsule Home Medications: Ascorbic Acid [Vitamin C] 250 mg PO BID 01/11/16 [History] Calcium Carbonate/Vitamin D3 [Calcium 500 + Vit D Caplet] 1 tab PO BID 01/11/16 [History] Ergocalciferol (VITAMIN D2) [Vitamin D2 (50,000 UNIT)] 50,000 unit PO DAVIS [History] Folic Acid 2 mg PO DAILY 01/11/16 [History] Isosorbide MONOnitrate [Isosorbide Mononitrate ER] 120 mg PO DAILY 01/11/16 [ History] Metoprolol XL (24 HR) Succ [Toprol Xl] 100 mg PO DAILY 01/11/16 [History] Multivitamin/Iron/Folic Acid [Centrum Complete Multivit Tab] 1 tab PO DAILY [History] Nitroglycerin [Nitrostat] 0.4 mg SL Q5M PRN 01/11/16 [History] [place]-3/Dha/Epa/Fish Oil [Fish Oil Dr 500 mg Softgel] 1,000 mg PO DAILY [History] Pregabalin [Lyrica] 200 mg PO BID 01/11/16 [History] Ranolazine [Ranexa] 1,000 mg PO BID 01/11/16 [History] Simvastatin [Zocor] 20 mg PO HS 01/11/16 [History] Venlafaxine HCl [Effexor Xr] 75 mg PO DAILY 01/11/16 [History] Vitamin E 1,000 units PO DAILY 01/11/16 [History] Alprazolam [Xanax 1 MG Tablet] 0.25 mg PO BID PRN 10/18/16 [History] Amitriptyline [Elavil] 25 - 50 mg PO HS 10/18/16 [History] Oxycodone HCl/Acetaminophen [Percocet 10-325 mg Tablet] 1 tab PO Q6H PRN [History] Lisinopril [Zestril] 40 mg PO DAILY #0 10/21/16 [Rx] Amlodipine Besylate 2.5 mg PO DAILY 02/23/17 [History] Apixaban [Eliquis] 5 mg PO BID 02/23/17 [History] Furosemide [Lasix] 40 mg PO BID 02/23/17 [History] Hydrochlorothiazide 25 mg PO DAILY 02/23/17 [History] Megestrol Acetate [Megace] 400 mg PO DAILY 02/23/17 [History] Pantoprazole Sodium [Protonix] 40 mg PO DAILY 02/23/17 [History] Paroxetine HCl [Paxil] 20 mg PO DAILY 02/23/17 [History] Aspirin 81 mg PO DAILY #90 tab.chew 02/28/17 [Rx] Methimazole [Tapazole] 10 mg PO TID #90 tablet 02/28/17 [Rx] Nitrofurantoin (BID) [Macrobid] 100 mg PO BIDWM #13 capsule 02/28/17 [Rx] OxyCODONE ER (12 HR) [OxyCONTIN] 20 mg PO Q12HR #60 tab.er.12h 02/28/17 [Rx] Allergies/Adverse Reactions: Allergies hydrocodone [From Vicodin] Allergy (Verified 02/23/17 14:36) Swelling of Lip/Tongue/Throat Certification: Further, I certify that my clinical findings support that this patient is homebound (i.e. absences from home require considerable and taxing effort and are for medical reasons or roman cath[employer] services or infrequently or short duration when for other reasons) because: Homebound Reason: Patient requires assistance of a person or device to safely leave home, Leaving home requires considerable and taxing effort due to condition Attestation: My signature below is to certify that this patient is under my care and that I, or nurse practitioner, or a physician's customer relations assistant working with me, has a face-to -face encounter with this patient.
[2017-02-28 11:30] LABS: Gamma Glutamyl Transpeptidase 131 Units/L (9-36)
[2017-02-28] MEDS: Nitrofurantoin (BID) 100 MG CAPSULE PO SCH ×2 (12:19→16:39)
[2017-02-28] MEDS: 0.9 % Sodium Chloride 1,000 ML IV SCH (12:19)
[2017-02-28 15:10] LABS: Thyroid Stim. Immunoglobulin >500 % (<=122)
--- NOTE | 2017-02-28 19:28 | Internal Med Progress Note ---
Date of Encounter: 02/28/17 Time of Encounter: 09:00 - Assessment and plan (1) Atrial fibrillation Current Visit: Yes Status: Acute Assessment and plan: Currently rate controlled. Continue current meds Qualifiers: Atrial fibrillation type: persistent Qualified Code(s): I48.1 - Persistent atrial fibrillation (2) Thrombocytopenia Current Visit: Yes Status: Acute Assessment and plan: Most likely medication related. Will recheck tomorrow. (3) Hyperthyroidism Current Visit: Yes Status: Acute Assessment and plan: Elevated free T4/T4 along with T3. Plan We will do further workup in terms of TSA/TSI and ultrasound of the thyroid Will continue methimazole at this point. 02/26/2017 Elevated free T4, total T4 and T3. TSH: 0 On methimazole 5 mg 3 times a day Ultrasound thyroid: Heterogenous blood flow, no thyroid nodules detected. Thyroid antibodies/thyroid-stimulating immunoglobulin: Results pending I have discussed this case with the patient's PCP. If we get those results back and if patient is clinically stable then as we will be happy to refer to laborer as outpatient. 02/27/2017 methimazole was increased to 10 mg TID yesterday evening Thyroid antibodies/thyroid-stimulating immunoglobulin: Results pending 02/28/17 - Symptoms improved but platelets dropping. Methimazole on hold. May need PTU or urgently in with endocrine to ablate thyroid (4) Weakness generalized Current Visit: Yes Status: Acute Assessment and plan: Seems to be doing better today with decreasing narcotic. PT/OT rec Swing bed and pt agrees (5) HTN (hypertension) Current Visit: No Status: Chronic Assessment and plan: Will continue to follow and adjust meds as needed. Qualifiers: Hypertension type: essential hypertension Qualified Code(s): I10 - Essential (primary) hypertension (6) CAD (coronary artery disease) Current Visit: No Status: Chronic Assessment and plan: Stable at this point. Qualifiers: Coronary Disease-Associated Artery/Lesion type: [place] artery [place] vs. transplanted heart: [place] heart Associated angina: angina presence unspecified Qualified Code(s): I25.10 - Atherosclerotic heart disease of [place] coronary artery without angina pectoris (7) Hypokalemia Current Visit: Yes Status: Acute Assessment and plan: Replace and recheck tomorrow. - Subjective Interval history: Ms. Mcdaniels is currently admitted for rapid atrial fibrillation due to hyperthroidism. She is currently moderate to high risk due to potential for worsening cardiac status. Ms. Mcdaniels is more alert today. She feels better overall but is very weak. Tremor has improved. Platelets are decreasing. No CP or SOB. No tachycardia. No fever, chills or neck pain. - Constitutional Vitals: Temp Pulse Resp BP Pulse Ox 98 F 46 16 93/49 98 02/28/17 16:11 02/28/17 16:11 02/28/17 16:11 02/28/17 16:11 02/28/17 16:11 General appearance: Present: A&O X 3, pleasant, answers questions appropriately - Head Head exam: Present: normocephalic - Eye Eye exam: Present: EOMI, conjuntiva pink - ENT ENT exam: Present: mucous membranes moist - Neck Neck exam general surgery: Absent: tenderness - Respiratory Respiratory exam: Present: decreased breath sounds, CTAB - Cardiovascular Cardiovascular exam: Present: irregular rhythm. Absent: tachycardia - GI/Abdominal GI/Abdominal exam: Present: soft. Absent: tenderness - Extremities Exam Extremities exam: Present: pedal edema, warm - Neurological Exam Neurological exam: Present: alert, oriented X3 Additional comments: Overall stronger today. - Psychiatric Psychiatric exam: Present: normal affect, normal mood - Skin Skin exam: Present: warm. Absent: rash Internal Medicine: Result - Labs CBC & Chem 7: 02/28/17 05:28 02/28/17 05:28 Labs: Short CBC 02/28/17 Range/Units 05:28 WBC 4.4 (4.3-11.1) K/mcL Hgb 8.9 L (11.5-15.4) g/dL Hct 28.5 L (35.3-44.9) % Plt Count 80 L (140-400) K/mcL Neutrophils # 2.5 (1.6-8.9) K/mcL BMP 02/28/17 05:28 Sodium 140 Potassium 3.2 L Chloride 108 Carbon Dioxide 24 BUN 20 D Creatinine 0.47 L Glucose 89 Calcium 9.0 Liver Function 02/28/17 Range/Units 05:28 Total Bilirubin 1.1 (0.2-1.2) mg/dL GGT 131 H (9-36) Units/L AST 29 (5-34) Units/L ALT 20 (0-55) Units/L Alkaline Phosphatase 196 H (38-126) Units/L Albumin 2.2 L (3.5-5.0) g/dL Urine 02/27/17 Range/Units 21:41 Urine Color Sonya A (Yellow) Urine Clarity Cloudy A (Clear) Urine pH 6.0 (5.0-8.0) pH Units Ur Specific [place] 1.027 H (1.010-1.025) Urine Protein 30 H (Neg-Trace) mg/dL Urine Glucose (UA) Normal (Normal) mg/dL - ABG Interpretation ABG results: PT/INR, D-dimer PT 12.4 Seconds (9.4-12.1) H 02/23/17 14:55 Consult Discharge Plan - Plan Instructions: Oxycodone/Acetaminophen (By mouth), Aspirin (By mouth), Methimazole (By mouth), Nitrofurantoin Combination (By mouth), Atrial Fibrillation (DC), Chest Pain (DC), Depression (DC), Diabetes Mellitus Type 2 in Adults (DC), Peripheral Vascular Disorders (DC), Chronic Hypertension (DC) Referrals: Matthias Polo MD [Primary Care Provider] - 03/07/17 1:15 pm Anna Ramos CNP [Partnered Physician] - 03/12/17 3:30 pm Prescriptions: OxyCODONE ER (12 HR) [OxyCONTIN] 20 mg PO Q12HR #60 tab.er.12h Aspirin 81 mg PO DAILY #90 tab.chew Methimazole [Tapazole] 10 mg PO TID #90 tablet Nitrofurantoin (BID) [Macrobid] 100 mg PO BIDWM #13 capsule
[2017-03-01] MEDS: 0.9 % Sodium Chloride 1,000 ML IV SCH (01:50)
[2017-03-01] MEDS: *HR* OxyCODONE ER (12 HR) 10 MG TABLET PO SCH (05:27)
[2017-03-01 06:24] LABS: Basophils % 0.2 %; Eosinophils # 0.1 K/mcL (0.0-0.6); Eosinophils % 2.7 %; Hematocrit 30.2 % (35.3-44.9); Hemoglobin 9.2 g/dL (11.5-15.4); Immature Granulocytes % 0.2 % (0-4); Immature Platelets 15.9 % (1.1-6.1); Lymphocytes # 1.1 K/mcL (0.6-4.6); Lymphocytes % 27.7 %; Mean Corpuscular HGB Conc 30.5 g/dL (31.6-35.5); Mean Corpuscular Hemoglobin 26.2 pg (28.0-33.3); Mean Platelet Volume 13.7 fL (9.4-12.4); Monocytes # 0.3 K/mcL (0.0-1.3); Monocytes % 6.7 %; Neutrophils # 2.5 K/mcL (1.6-8.9); Red Blood Count 3.51 M/mcL (3.82-4.97); Red Cell Distribution Width 15.2 % (11.5-14.5); Segmented Neutrophils % 62.5 %
[2017-03-01 06:31] LABS: Platelet Count 83 K/mcL (140-400)
[2017-03-01 06:43] LABS: BUN/Creatinine Ratio 38 (6-26); Blood Urea Nitrogen 17 mg/dL (7-20); Calcium 9.1 mg/dL (8.6-10.8); Carbon Dioxide 24 mEq/L (19-29); Chloride 110 mEq/L (98-109); Glucose 87 mg/dL (70-99); Magnesium 1.4 mg/dL (1.6-2.6); Osmolality,Calculated 293 (280-300); Potassium 3.6 mEq/L (3.5-4.5); Sodium 141 mEq/L (136-145); eGFR For African Americans > 60 (> 60); eGFR For Non-African Americans > 60 (> 60)
[2017-03-01 08:23] VITALS: BP 134/62
[2017-03-01] MEDS ORDERED: Magnesium Oxide 400 MG TABLET PO SCH (09:00)
[2017-03-01] MEDS: Calcium 500 + Vit D PO SCH (09:00)
[2017-03-01] MEDS: Multivit/Ca/Min/Fe/FA 1 TAB TABLET PO SCH (09:05)
[2017-03-01] MEDS: Lisinopril 20 MG TABLET PO SCH (09:05)
[2017-03-01] MEDS: Isosorbide MONOnitrate (24 HR) 60 MG TAB.ER.24H PO SCH (09:05)
[2017-03-01] MEDS: Ranolazine 500 MG TAB.ER.12H PO SCH (09:05)
[2017-03-01] MEDS: Nitrofurantoin (BID) 100 MG CAPSULE PO SCH (09:06)
[2017-03-01] MEDS: Aspirin 81 MG TAB.CHEW PO SCH (09:06)
[2017-03-01] MEDS: Furosemide 40 MG TABLET PO SCH (09:06)
[2017-03-01] MEDS: Folic Acid 1 MG TABLET PO SCH (09:06)
[2017-03-01] MEDS: APIXABAN 5 MG TABLET PO SCH (09:06)
[2017-03-01] MEDS: Metoprolol XL (24 HR) Succ 50 MG TAB.ER.24H PO SCH (09:06)
[2017-03-01] MEDS: Ascorbic Acid 500 MG TABLET PO SCH (09:06)
[2017-03-01] MEDS: Pregabalin 50 MG CAPSULE PO SCH (09:07)
[2017-03-01] MEDS: Venlafaxine XR (24 HR) 75 MG CAP.ER.24H PO SCH (09:07)
--- NOTE | 2017-03-01 09:21 | Discharge Summary ---
<Colette Guan - Last Filed: 03/01/17 13:32> Date of Encounter: 03/01/17 Time of Encounter: 08:00 - Discharge Diagnosis (1) Atrial fibrillation with RVR Priority: Primary Status: Resolved (2) Weakness generalized Priority: Primary Status: Acute (3) Hyperthyroidism Priority: Primary Status: Acute (4) Carotid artery disease Priority: Secondary Status: Chronic Qualifiers: Laterality: right Qualified Code(s): I77.9 - Disorder of arteries and arterioles, unspecified (5) Syncope Priority: Secondary Status: Acute Qualifiers: Syncope type: unspecified Qualified Code(s): R55 - Syncope and collapse (6) Frail elderly Priority: Primary Status: Acute (7) Thrombocytopenia Priority: Primary Status: Acute Comments: continue to monitor with daily labs at SNF - Discharge Medications Prescriptions: OxyCODONE ER (12 HR) [OxyCONTIN] 10 mg PO Q12HR #60 tab.er.12h Aspirin 81 mg PO DAILY #90 tab.chew Nitrofurantoin (BID) [Macrobid] 100 mg PO BIDWM #13 capsule Home Medications: Ascorbic Acid [Vitamin C] 250 mg PO BID 01/11/16 [History] Calcium Carbonate/Vitamin D3 [Calcium 500 + Vit D Caplet] 1 tab PO BID 01/11/16 [History] Ergocalciferol (VITAMIN D2) [Vitamin D2 (50,000 UNIT)] 50,000 unit PO DAVIS [History] Folic Acid 2 mg PO DAILY 01/11/16 [History] Isosorbide MONOnitrate [Isosorbide Mononitrate ER] 120 mg PO DAILY 01/11/16 [ History] Metoprolol XL (24 HR) Succ [Toprol Xl] 100 mg PO DAILY 01/11/16 [History] Multivitamin/Iron/Folic Acid [Centrum Complete Multivit Tab] 1 tab PO DAILY [History] Nitroglycerin [Nitrostat] 0.4 mg SL Q5M PRN 01/11/16 [History] [place]-3/Dha/Epa/Fish Oil [Fish Oil Dr 500 mg Softgel] 1,000 mg PO DAILY [History] Pregabalin [Lyrica] 200 mg PO BID 01/11/16 [History] Ranolazine [Ranexa] 1,000 mg PO BID 01/11/16 [History] Simvastatin [Zocor] 20 mg PO HS 01/11/16 [History] Venlafaxine HCl [Effexor Xr] 75 mg PO DAILY 01/11/16 [History] Vitamin E 1,000 units PO DAILY 01/11/16 [History] Alprazolam [Xanax 1 MG Tablet] 0.25 mg PO BID PRN 10/18/16 [History] Amitriptyline [Elavil] 25 - 50 mg PO HS 10/18/16 [History] Oxycodone HCl/Acetaminophen [Percocet 10-325 mg Tablet] 1 tab PO Q6H PRN [History] Lisinopril [Zestril] 40 mg PO DAILY #0 10/21/16 [Rx] Amlodipine Besylate 2.5 mg PO DAILY 02/23/17 [History] Apixaban [Eliquis] 5 mg PO BID 02/23/17 [History] Furosemide [Lasix] 40 mg PO BID 02/23/17 [History] Hydrochlorothiazide 25 mg PO DAILY 02/23/17 [History] Megestrol Acetate [Megace] 400 mg PO DAILY 02/23/17 [History] Pantoprazole Sodium [Protonix] 40 mg PO DAILY 02/23/17 [History] Paroxetine HCl [Paxil] 20 mg PO DAILY 02/23/17 [History] Aspirin 81 mg PO DAILY #90 tab.chew 02/28/17 [Rx] Nitrofurantoin (BID) [Macrobid] 100 mg PO BIDWM #13 capsule 02/28/17 [Rx] OxyCODONE ER (12 HR) [OxyCONTIN] 10 mg PO Q12HR #60 tab.er.12h 03/01/17 [Rx] Allergies/Adverse Reactions: Allergies hydrocodone [From Vicodin] Allergy (Verified 02/23/17 14:36) Swelling of Lip/Tongue/Throat Procedures/tests Complete & Pending: Procedures Performed prior 72 hours Category Date Time Status US thyroid [US] Routine Exams 02/26/17 09:00 Completed MR angio head wo con [MR] Routine MRI 02/27/17 13:37 Draft MR head/brain wo con [MR] Routine MRI 02/27/17 13:36 Draft Date of admission: 02/24/17 15:36 Primary care physician: Matthias Polo MD Consults: 02/27/17 09:31 Consult to Physical Therapy [CONS] Routine Comment: Evaluate, develop and implement POC OT [Consult to Occupational Therapy] [CONS] Routine Comment: Evaluate, develop and implement POC 02/28/17 09:54 Consult to Manager Chemistry [CONS] Routine Reason for SW Consult: PT rec swing bed Discharging clinician: Colette Guan Anticipated date of discharge: 03/01/17 - Patient Status Disposition: Transfer SNF Condition: Fair Overall status at discharge: patient is progressing back to baseline - Discharge Instructions Instructions: Oxycodone/Acetaminophen (By mouth), Aspirin (By mouth), Methimazole (By mouth), Nitrofurantoin Combination (By mouth), Atrial Fibrillation (DC), Chest Pain (DC), Depression (DC), Diabetes Mellitus Type 2 in Adults (DC), Peripheral Vascular Disorders (DC), Chronic Hypertension (DC) Follow Up With: Matthias oPlo MD [Primary Care Provider] - 03/07/17 1:15 pm Anna Ramos CNP [Partnered Physician] - 03/12/17 3:30 pm - Diet and Activity Activity: as per physical therapy Diet: low fat, low cholesterol Interval History: Patient appears well this morning. Denies pain. Throughout the course of the day , she is sleeping or drowsy quite often. Hospital course: Ms. Mcdaniels is a 61 year old female admitted for a fib RVR from her PCP's office from what was supposed to be a hospital follow-up visit for a fib RVR. She was diagnosed with hyperthyroidism at that previous hospitalization. Her a fib RVR was successfully rate-controlled/converted to normal sinus rhythm. She was noted to have generalized weakness and also to be drowsy and sleeping much of the day and on high dose oxycontin as a home medication - this was tapered from 30 mg q12 hr to 10 mg q12 throughout her hospitalization. She developed thrombocytopenia, possibly as a reaction from methimazole; the methimazole was held and instructions were given for daily blood work to the SNF. She also had some minor electrolyte deficiencies which were noted on different morning labs and repleted as needed. - Time Spent with Patient Total time spent providing and/or coordinating discharge services: - Constitutional Vitals: Temp Pulse Resp BP Pulse Ox 97.9 F 52 18 134/62 96 03/01/17 08:18 03/01/17 08:18 03/01/17 08:18 03/01/17 08:18 03/01/17 08:18 General appearance: Present: A&O X 3, pleasant, answers questions appropriately - Head Head exam: Present: atraumatic, normocephalic - Eye Eye exam: Present: PERRL, conjuntiva pink, sclera anicteric Pupils: Present: PERRL - Neck Neck exam general surgery: Present: supple - Respiratory Respiratory exam: Present: CTAB - Cardiovascular Cardiovascular exam: Present: irregular rhythm. Absent: tachycardia - GI/Abdominal GI/Abdominal exam: Present: normal bowel sounds, soft, no peritoneal signs. Absent: distended, tenderness - Extremities Exam Extremities exam: Present: warm. Absent: calf tenderness, cyanotic, pedal edema - Neurological Exam Neurological exam: Present: CN II-XII intact, oriented X3, no focal deficits. Absent: pronater drift, facial droop, speech deficit - Skin Skin exam: Present: dry, intact <Dagoberto Mcdaniels - Last Filed: 03/01/17 20:03> Date of Encounter: 03/01/17 - Discharge Diagnosis (1) Atrial fibrillation Priority: Primary Status: Acute Qualifiers: Atrial fibrillation type: persistent Qualified Code(s): I48.1 - Persistent atrial fibrillation (2) Hyperthyroidism Priority: Primary Status: Acute (3) Thrombocytopenia Priority: Primary Status: Acute (4) Weakness generalized Status: Acute Comments: Presumed due to methimazole (5) HTN (hypertension) Priority: Secondary Status: Chronic Qualifiers: Hypertension type: essential hypertension Qualified Code(s): I10 - Essential (primary) hypertension (6) CAD (coronary artery disease) Priority: Secondary Status: Chronic Qualifiers: Coronary Disease-Associated Artery/Lesion type: [place] artery [place] vs. transplanted heart: [place] heart Associated angina: angina presence unspecified Qualified Code(s): I25.10 - Atherosclerotic heart disease of [place] coronary artery without angina pectoris (7) Hypokalemia Priority: Secondary Status: Resolved Procedures/tests Complete & Pending: Procedures Performed prior 72 hours Category Date Time Status MR angio head wo con [MR] Routine MRI 02/27/17 13:37 Draft MR head/brain wo con [MR] Routine MRI 02/27/17 13:36 Draft Date of admission: 02/24/17 15:36 Primary care physician: Matthias Polo MD Consults: 02/27/17 09:31 Consult to Physical Therapy [CONS] Routine Comment: Evaluate, develop and implement POC OT [Consult to Occupational Therapy] [CONS] Routine Comment: Evaluate, develop and implement POC 02/28/17 09:54 Consult to Manager Chemistry [CONS] Routine Reason for SW Consult: PT rec swing bed Hospital course: Ms. Mcdaniels is a 61 year old female - Time Spent with Patient Total time spent providing and/or coordinating discharge services: 37min - Constitutional Vitals: Temp Pulse Resp BP Pulse Ox 97.9 F 52 18 134/62 96 03/01/17 08:18 03/01/17 08:18 03/01/17 08:18 03/01/17 08:18 03/01/17 08:18 - Attending Attestation I examined this patient and my medical decision-making was reviewed with the Resident Physician on 03/01/17. I agree with the documented findings, disposition and treatment plan as described except to the extent set forth below. Ms. Mcdaniels feels OK today. She denies new issues. Ready for d/c to Swing bed. Exam Alert. Comfortable Heart irreg Lungs clear Edema present Plan D/C to Swing bed Pt is off Methimazole due to thrombocytopenia. Will need appt with endocrine to further treat Graves disease.
--- NOTE | 2017-03-01 13:30 | Physician Discharge Referral ---
ExtendedCare Referral Info Transfer To: [facility] Provider in Charge after Transfer: Other Institutional Level of Care: Skilled - Diagnosis (1) Atrial fibrillation with RVR Priority: Secondary Status: Resolved (2) Weakness generalized Priority: Primary Status: Acute (3) Hyperthyroidism Priority: Primary Status: Acute (4) Carotid artery disease Priority: Secondary Status: Chronic (5) Syncope Priority: Secondary Status: Acute (6) Frail elderly Priority: Primary Status: Acute Expected Duration of Placement: 2 weeks Prognosis: Good Aware of Diagnosis: Patient, Family Aware of Prognosis: Patient, Family - Transfer Medications Prescriptions: OxyCODONE ER (12 HR) [OxyCONTIN] 10 mg PO Q12HR #60 tab.er.12h Aspirin 81 mg PO DAILY #90 tab.chew Nitrofurantoin (BID) [Macrobid] 100 mg PO BIDWM #13 capsule Home Medications: Ascorbic Acid [Vitamin C] 250 mg PO BID 01/11/16 [History] Calcium Carbonate/Vitamin D3 [Calcium 500 + Vit D Caplet] 1 tab PO BID 01/11/16 [History] Ergocalciferol (VITAMIN D2) [Vitamin D2 (50,000 UNIT)] 50,000 unit PO DAVIS [History] Folic Acid 2 mg PO DAILY 01/11/16 [History] Isosorbide MONOnitrate [Isosorbide Mononitrate ER] 120 mg PO DAILY 01/11/16 [ History] Metoprolol XL (24 HR) Succ [Toprol Xl] 100 mg PO DAILY 01/11/16 [History] Multivitamin/Iron/Folic Acid [Centrum Complete Multivit Tab] 1 tab PO DAILY [History] Nitroglycerin [Nitrostat] 0.4 mg SL Q5M PRN 01/11/16 [History] [place]-3/Dha/Epa/Fish Oil [Fish Oil Dr 500 mg Softgel] 1,000 mg PO DAILY [History] Pregabalin [Lyrica] 200 mg PO BID 01/11/16 [History] Ranolazine [Ranexa] 1,000 mg PO BID 01/11/16 [History] Simvastatin [Zocor] 20 mg PO HS 01/11/16 [History] Venlafaxine HCl [Effexor Xr] 75 mg PO DAILY 01/11/16 [History] Vitamin E 1,000 units PO DAILY 01/11/16 [History] Alprazolam [Xanax 1 MG Tablet] 0.25 mg PO BID PRN 10/18/16 [History] Amitriptyline [Elavil] 25 - 50 mg PO HS 10/18/16 [History] Oxycodone HCl/Acetaminophen [Percocet 10-325 mg Tablet] 1 tab PO Q6H PRN [History] Lisinopril [Zestril] 40 mg PO DAILY #0 10/21/16 [Rx] Amlodipine Besylate 2.5 mg PO DAILY 02/23/17 [History] Apixaban [Eliquis] 5 mg PO BID 02/23/17 [History] Furosemide [Lasix] 40 mg PO BID 02/23/17 [History] Hydrochlorothiazide 25 mg PO DAILY 02/23/17 [History] Megestrol Acetate [Megace] 400 mg PO DAILY 02/23/17 [History] Pantoprazole Sodium [Protonix] 40 mg PO DAILY 02/23/17 [History] Paroxetine HCl [Paxil] 20 mg PO DAILY 02/23/17 [History] Aspirin 81 mg PO DAILY #90 tab.chew 02/28/17 [Rx] Nitrofurantoin (BID) [Macrobid] 100 mg PO BIDWM #13 capsule 02/28/17 [Rx] OxyCODONE ER (12 HR) [OxyCONTIN] 10 mg PO Q12HR #60 tab.er.12h 03/01/17 [Rx] Allergies/Adverse Reactions: Allergies hydrocodone [From Vicodin] Allergy (Verified 02/23/17 14:36) Swelling of Lip/Tongue/Throat - Respiratory Orders Smoking Cessation: Smoking cessation has been advised. For more information, call the [place] Tobacco Quit Line at 7-013-VTAP-NOW. - Lab Orders Lab Orders: CBC (daily), Other (include drug levels w/frequency) (cmp, mg daily) - Mobility Orders Ambulate (with therapy) - Rehabiliation Orders Rehab Potential: Good Rehab Orders: Evaluation for Physical Therapy, Evaluation for Occupational Therapy - Diet Orders Cardiac CERTIFICATION: I certify that the transfer of the above named patient to an Extended Care Facility is necessary for the continuing treatment of the diagnosis listed. The above information is true and accurate reflection of patient's current condition. Confidential - Redisclosure prohibited without a patient's written consent.
== END 2017-03-01 13:28 | DRG 310 ==
LOC: EMEROO 14:23 → 2NENU 14:23 → SUATTDRO 02-24 15:36
PROVIDERS: ADMIT Internal Medicine; ATTEND Internal Medicine

== ENCOUNTER 2017-04-06 10:27 | Inpatient (IN) ==
[2017-04-06] MEDS ORDERED: Aspirin 81 MG TAB.CHEW PO ONE (10:42)
--- NOTE | 2017-04-06 10:42 | Emergency Department Note ---
Disposition Clinical Impression: Atrial fibrillation with RVR, Chest pain of uncertain etiology Disposition: Admitted As Inpatient Condition: Critical Time of Disposition: 14:00 Chest Pain HPI - General Chief Complaint: ED Chest Pain Stated Complaint: Chest pain, NOAH Time Seen by Provider: 04/06/17 10:34 Source: patient Limitations: no limitations Vital Signs Reviewed: Yes Nursing Notes Reviewed: Yes - History of Present Illness HPI Narrative: Mrs. Mcdaniels, 61-year-old female, presents with chief complaint of difficulty breathing and chest pain. History of COPD (nonsmoker). Baseline supplemental O2 at home 2.5-3 L. Dyspnea onset this morning. Chest pain described as palpitations which are worse than her typical baseline palpitations. PMH: A. fib RVR secondary to hyperthyroidism and refractory to cardioversion. CAD status post remote CABG. History thrombocytopenia. Medications: Anticoagulated on Eliquis. Rate controlled on Toprol-XL. Patient is not take her morning medicines. ROS: Denies fever, chills, nausea, vomiting, cough, dizziness, unusual weakness. Severity scale (1-10): 7 - Related Data Home Medications Medication Instructions Recorded Confirmed Ergocalciferol (VITAMIN D2) 50,000 unit PO DAVIS 01/11/16 04/06/17 [Vitamin D2 (50,000 UNIT)] Folic Acid 2 mg PO DAILY 01/11/16 04/06/17 Isosorbide MONOnitrate [Isosorbide 120 mg PO DAILY 01/11/16 04/06/17 Mononitrate ER] Metoprolol XL (24 HR) Succ [Toprol 100 mg PO DAILY 01/11/16 04/06/17 Xl] Multivitamin/Iron/Folic Acid 1 tab PO DAILY 01/11/16 04/06/17 [Centrum Complete Multivit Tab] Nitroglycerin [Nitrostat] 0.4 mg SL Q5M PRN 01/11/16 04/06/17 Simvastatin [Zocor] 20 mg PO HS 01/11/16 04/06/17 Venlafaxine HCl [Effexor Xr] 75 mg PO DAILY 01/11/16 04/06/17 Vitamin E 1,000 units PO DAILY 01/11/16 04/06/17 ALPRAZolam [Xanax 1 MG Tablet] 0.25 mg PO BID PRN 10/18/16 04/06/17 Amitriptyline [Elavil] 25 - 50 mg PO HS PRN 10/18/16 04/06/17 Oxycodone HCl/Acetaminophen 1 tab PO Q6H PRN 10/18/16 04/06/17 [Percocet 10-325 mg Tablet] Apixaban [Eliquis] 5 mg PO BID 02/23/17 04/06/17 Paroxetine HCl [Paxil] 20 mg PO DAILY 02/23/17 04/06/17 Amlodipine Besylate 2.5 mg PO DAILY 04/06/17 04/06/17 Aspirin 81 mg PO DAILY 04/06/17 04/06/17 Oxygen 2 l .ROUTE AD 04/06/17 04/06/17 Pantoprazole Sodium [Protonix] 40 mg PO DAILY 04/06/17 04/06/17 methIMAzole [Methimazole] 10 mg PO DAILY 04/06/17 04/06/17 Previous Rx's Medication Instructions Recorded Lisinopril [Zestril] 40 mg PO DAILY #0 10/21/16 OxyCODONE ER (12 HR) [OxyCONTIN] 10 mg PO Q12HR #60 tab.er.12h 03/01/17 Pregabalin [Lyrica] 100 mg PO BID #0 03/04/17 Allergies Allergy/AdvReac Type Severity Reaction Status Date / Time hydrocodone [From Vicodin] Allergy Swelling Verified 02/23/17 14:36 of Lip/Tongue/Throat All systems ED: reviewed and negative except as stated. Chest Pain PMH - Past Medical History Medical history: Reports: atrial fibrillation, coronary artery disease, hyperlipidemia, hypertension, osteoporosis, other Surgical history: Reports: cholecystectomy, coronary bypass (CABG), hysterectomy Psychiatric history: Reports: depression - Social History Smoking Status: Never smoker Alcohol use: Reports: none Drug use: Reports: none Physical Exam Vital signs reviewed: Patient tachycardic, tachypneic, afebrile, normotensive. Not hypoxic on some oxygen 2.5L NC. General: Patient is alert, oriented, and in no acute distress. No conversational dyspnea. Frail in appearance. HEENT: No facial asymmetry. Head is normocephalic and atraumatic. PERRLA, EOMI. Nasal turbinates moist and pink. Posterior pharynx without exudates or cobblestoning. Trachea midline, no palpable thyroid nodules, no thyromegaly. Cardiovascular: Heart tachycardic rate with irregular rhythm without clicks, rubs, gallops, or murmurs. No JVD. PMI nondisplaced. Respiratory: Symmetric chest rise with poor respiratory effort. Prolonged active Tory phase. Bilateral breath sounds are clear without wheezing, crackles , or rhonchi. Abdomen: Scaphoid abdomen. Bowel sounds present normoactive x-4 quadrants. Abdomen is soft, nondistended, and nontender. No organomegaly noted. Psych: Patient's affect is appropriate for situation. - General Limitations: no limitations General appearance: alert, in no apparent distress Course Course Narrative: Patient's lab work has returned unremarkable. She is anemic however this is her baseline. Her TSH is 0 however this is also her baseline given her history of hyperthyroidism. Chest x-ray unremarkable. Patient's symptoms remain with heart rate spontaneously improved to the high 90s. Discussed with her admission for continued chest pain workup and rate control and she is in agreement. Patient updated. She agrees to admission for rate control and r/o ACS. 1400 Spoke with hospitalist, Dr. Devlin, who agrees to see the patient on a telemetry floor. Vital Signs Temperature 97.6 F 04/06/17 10:32 Pulse Rate 117 04/06/17 10:32 Respiratory Rate 20 04/06/17 10:32 Blood Pressure 127/109 04/06/17 10:32 O2 Sat by Pulse Oximetry 99 04/06/17 10:32 Temperature 97.5 F L 04/06/17 15:03 Pulse Rate 96 04/06/17 15:03 Respiratory Rate 16 04/06/17 15:03 Blood Pressure 139/84 04/06/17 15:03 O2 Sat by Pulse Oximetry 99 04/06/17 15:03 Oxygen Delivery Oxygen Delivery Room Air Chest Pain - Medical Records Medical records reviewed: Yes I reviewed the patient's medical records. - Lab Data Lab results reviewed: Yes I reviewed the patient's lab results. Result diagrams: 04/06/17 10:41 04/06/17 10:41 Lab Results 04/06/17 04/06/17 04/06/17 Range/Units 10:41 10:41 10:41 WBC 5.6 (4.3-11.1) K/mcL RBC 3.67 L (3.82-4.97) M/mcL Hgb 9.5 L (11.5-15.4) g/dL Hct 31.0 L (35.3-44.9) % MCV 84.5 (83.0-100.0) fL MCH 25.9 L (28.0-33.3) pg MCHC 30.6 L (31.6-35.5) g/dL RDW 16.8 H (11.5-14.5) % Plt Count 171 (140-400) K/mcL MPV 11.6 (9.4-12.4) fL Immature Gran % 0.5 (0-4) % Seg Neutrophils % 77.2 % Lymphocytes % 14.4 % Monocytes % 7.9 % Eosinophils % 0.0 % Basophils % 0.0 % Neutrophils # 4.3 (1.6-8.9) K/mcL Lymphocytes # 0.8 (0.6-4.6) K/mcL Monocytes # 0.4 (0.0-1.3) K/mcL Eosinophils # 0.0 (0.0-0.6) K/mcL Basophils # 0.0 (0.0-0.2) K/mcL PT 13.9 H (9.4-12.1) Seconds INR 1.3 APTT 28.8 (26.0-36.0) Seconds Sodium 138 (136-145) mEq/L Potassium 3.6 (3.5-4.5) mEq/L Chloride 105 (98-109) mEq/L Carbon Dioxide 22 (19-29) mEq/L BUN 17 (7-20) mg/dL Creatinine 0.53 L (0.57-1.11) mg/dL Est GFR ( Amer) > 60 (> 60) Est GFR (Non-Af Amer) > 60 (> 60) BUN/Creatinine Ratio 32 H (6-26) Glucose 258 H (70-99) mg/dL Est Mean Plasma Glucose mg/dl Hemoglobin A1c ( - 5.6) % Calculated Osmolality 296 (280-300) Calcium 9.1 (8.6-10.8) mg/dL Troponin I (0-0.03) ng/mL TSH 0.000 L (0.350-4.840) mcIU/mL Free T4 2.93 H (0.70-1.48) ng/dl Free T3 17.67 H (1.71-3.71) pg/mL Random Cortisol 1.2 mcg/dl 04/06/17 04/06/17 Range/Units 10:41 10:41 WBC (4.3-11.1) K/mcL RBC (3.82-4.97) M/mcL Hgb (11.5-15.4) g/dL Hct (35.3-44.9) % MCV (83.0-100.0) fL MCH (28.0-33.3) pg MCHC (31.6-35.5) g/dL RDW (11.5-14.5) % Plt Count (140-400) K/mcL MPV (9.4-12.4) fL Immature Gran % (0-4) % Seg Neutrophils % % Lymphocytes % % Monocytes % % Eosinophils % % Basophils % % Neutrophils # (1.6-8.9) K/mcL Lymphocytes # (0.6-4.6) K/mcL Monocytes # (0.0-1.3) K/mcL Eosinophils # (0.0-0.6) K/mcL Basophils # (0.0-0.2) K/mcL PT (9.4-12.1) Seconds INR APTT (26.0-36.0) Seconds Sodium (136-145) mEq/L Potassium (3.5-4.5) mEq/L Chloride (98-109) mEq/L Carbon Dioxide (19-29) mEq/L BUN (7-20) mg/dL Creatinine (0.57-1.11) mg/dL Est GFR ( Amer) (> 60) Est GFR (Non-Af Amer) (> 60) BUN/Creatinine Ratio (6-26) Glucose (70-99) mg/dL Est Mean Plasma Glucose 97 mg/dl Hemoglobin A1c 5.0 ( - 5.6) % Calculated Osmolality (280-300) Calcium (8.6-10.8) mg/dL Troponin I 0.02 (0-0.03) ng/mL TSH (0.350-4.840) mcIU/mL Free T4 (0.70-1.48) ng/dl Free T3 (1.71-3.71) pg/mL Random Cortisol mcg/dl - Radiology Data Radiology results reviewed: Yes I reviewed the patient's radiology results. Chest X-Ray 04/06/17 10:47 IMPRESSION: Stable appearing chest without acute cardiopulmonary process. D/ / Jackson Lopez MD / Jackson Lopez MD Interpreting Provider: Jackson Lopez MD - EKG Data EKG attestation: Yes I reviewed and interpreted this EKG. EKG results narrative: EKG dated 04/06/17 at 10:33 interpreted as A. fib with RVR; rate of 121. Compared to previous dated 02/23/2017 also showing A. fib with RVR. No acute changes in comparison. Heart Score - Score History: Slightly Suspicious EKG: Non Specific repolarisation Disturbance Age: 45-65 Risk Factors: Equal/Greater than 3 risk factor or history of atherosclerotic disease Troponin: Less than normal limit HEART Score Total: 4
[2017-04-06 10:52] LABS: Hemoglobin 9.5 g/dL (11.5-15.4); Immature Granulocytes % 0.5 % (0-4); Lymphocytes # 0.8 K/mcL (0.6-4.6); Lymphocytes % 14.4 %; Mean Corpuscular HGB Conc 30.6 g/dL (31.6-35.5); Mean Corpuscular Hemoglobin 25.9 pg (28.0-33.3); Mean Corpuscular Volume 84.5 fL (83.0-100.0); Mean Platelet Volume 11.6 fL (9.4-12.4); Monocytes # 0.4 K/mcL (0.0-1.3); Monocytes % 7.9 %; Neutrophils # 4.3 K/mcL (1.6-8.9); Platelet Count 171 K/mcL (140-400); Red Blood Count 3.67 M/mcL (3.82-4.97); Red Cell Distribution Width 16.8 % (11.5-14.5); Segmented Neutrophils % 77.2 %
[2017-04-06 10:58] LABS: INR 1.3; Prothrombin Time 13.9 Seconds (9.4-12.1)
[2017-04-06 11:01] LABS: Activated Partial Thrombo Time 28.8 Seconds (26.0-36.0)
[2017-04-06 11:04] LABS: BUN/Creatinine Ratio 32 (6-26); Blood Urea Nitrogen 17 mg/dL (7-20); Calcium 9.1 mg/dL (8.6-10.8); Carbon Dioxide 22 mEq/L (19-29); Chloride 105 mEq/L (98-109); Glucose 258 mg/dL (70-99); Osmolality,Calculated 296 (280-300); Potassium 3.6 mEq/L (3.5-4.5); Sodium 138 mEq/L (136-145); eGFR For African Americans > 60 (> 60); eGFR For Non-African Americans > 60 (> 60)
[2017-04-06 11:27] LABS: Triiodothyronine (T3) Free 17.67 pg/mL (1.71-3.71)
--- NOTE | 2017-04-06 12:06 | Emergency Department Note ---
START Narrative - START START: I examined this patient and my medical decision-making was reviewed with the SKATE BOARDER/PA/Advanced Practice Nurse/Resident Physician. I agree with the documented findings, disposition and treatment plan as described except to the extent set forth below. ED attending: Patient's emergency medicine resident Dr. Green. Please see copy of this note for H&P evaluation and management and ED disposition. We both had independent [id number] time in contact with this patient. Briefly: A 61-year-old female by EMS for shortness of breath and chest discomfort. Patient presents with family history of A. fib with RVR and thyroid problems. Vision is in A. fib with RVR at 1:30 with good blood pressure she is on oxygen which she uses an chest been using at home. Patient did not take her morning meds. Denies fevers or chills. EKG shows atrial fibrillation with rapid ventricular response about 130 bpm nonspecific changes. Troponin negative TSH 0 chest x-ray read by radiology as stable. Patient's heart rate goes between 99 and 130. Patient beginning IV metoprolol and will be admitted for A. fib with RVR, chest pain rule out acute coronary syndrome. We provided 45 minutes of critical care services for this patient. Disposition pending.
[2017-04-06] MEDS: *HR* Metoprolol 5 MG/5 ML VIAL IVP SCH ×2 (13:02→13:48)
[2017-04-06] MEDS ORDERED: Naloxone 0.4 MG/ML INJ IVP PRN (13:37)
[2017-04-06] MEDS ORDERED: ALPRAZolam 0.25 MG TABLET PO PRN (13:46)
[2017-04-06] MEDS ORDERED: *HR* Dextrose 50 % in Water (Syg) 50 ML SYRINGE IVP PRN (13:55)
[2017-04-06] MEDS ORDERED: Dextrose Gel 15 GM PO PRN ×2 (13:55)
[2017-04-06] MEDS ORDERED: D5% in Water 1,000 ML IVC PRN (13:55)
--- NOTE | 2017-04-06 14:03 | Internal Med History&Physical ---
<Dariela Olivo M - Last Filed: 04/06/17 15:02> Date of Encounter: 04/06/17 Time of Encounter: 13:56 Assessment and Plan (1) Atrial fibrillation with RVR Current visit: Yes Status: Acute Patient presents with palpitations, chest pain and shortness of breath. EKG showed Afib with RVR with HR 121. She has known afib and is on metoprolol for rate control and eliquis for anticoagulation. She had not yet taken her medications this morning. She also has hyperthyroidism and did not continue her methimazole as an outpatient after her last hospitalization. AFib likely secondary to or exacerbated by hyperthyroidism. 5mg IV metoprolol given in ED. HR improved to 80s. Continue home dose of metoprolol, eliquis. Start propylthiouracil for hyperthyroid. continuous classroom monitor. (2) Hyperthyroidism Current visit: No Status: Acute Patient was hospitalized in February for A. fib with RVR and was found to have hyperthyroid and was started on methimazole, the methimazole was stopped due to thrombocytopenia, and it does not appear that it was restarted as an outpatient. She reports daily diarrhea and weight loss of 50-60 lbs since October. She reports trouble sleeping and fatigue, all consistent with hyperthyroidism. Today's TSH was 0.0, and T3 and T4 were elevated. 5mg IV metoprolol given in ED Continue home dose of metoprolol Start propythiouracil 50mg TID check thyroid labs daily, check cbc daily. (3) Chest pain Current visit: No Status: Acute Patient reports episode of chest pain earlier today following palpitations. It was accompanied by shortness of breath and relieved by nitro. Patient with CAD s/p CABG and stent placement. EKG showed Afib with RVR, HR 121. Initial troponin normal at 0.02. Continuous classroom monitor serial troponins. Qualifiers: Chest pain type: precordial pain Qualified Code(s): R07.2 - Precordial pain (4) Decubitus ulcer Current visit: Yes Status: Acute Patient reports she developed a pressure ulcer on her backside during a stay at rehab recently. On exam, she has a 2cm diameter unstageable ulcer with purulent drainage and surrounding erythema on her sacrum. Consult to wound care culture wound turn and reposition q2hr Qualifiers: Pressure ulcer location: sacral region Pressure ulcer stage: unstageable Qualified Code(s): L89.150 - Pressure ulcer of sacral region, unstageable (5) Type 2 diabetes mellitus Current visit: Yes Status: Acute Patient reports diabetes which is diet controlled. check A1c check blood sugars ACHS Sliding scale correction dose ACHS hypoglycemic protocol. Qualifiers: Diabetes mellitus complication status: without complication Diabetes mellitus [facility] insulin use: without [facility] use Qualified Code(s): E11.9 - Type 2 diabetes mellitus without complications (6) COPD (chronic obstructive pulmonary disease) Current visit: Yes Status: Acute Patient on oxygen at home. Reports shortness of breath today, but denies any increased cough or sputum production. CXR showed no acute cardiopulmonary process. Qualifiers: COPD type: unspecified COPD Qualified Code(s): J44.9 - Chronic obstructive pulmonary disease, unspecified (7) CAD (coronary artery disease) Current visit: No Status: Chronic Patient with CAD, s/p CABG and stent placements. LHC in 12/2015 showed patent KOTHARI to LAD, Occluded SVG to PDA, and RCA had 80-100 % stenosis with collateralization. Patient also reportedly had a more recent cath at [facility]. Both recommended medical management. continue aspirin, statin, metoprolol, ranexa, imdur, lisinopril. Qualifiers: Coronary Disease-Associated Artery/Lesion type: [place] artery [place] vs. transplanted heart: [place] heart Associated angina: angina presence unspecified Qualified Code(s): I25.10 - Atherosclerotic heart disease of [place] coronary artery without angina pectoris (8) DVT prophylaxis Current visit: Yes Status: Acute up to chair BID anti-embolic stockings Patient on eliquis for afib, additional pharmacologic prophylaxis not indicated. Internal Medicine - H&P: HPI Chief complaint: chest pain, shortness of breath Admitted From: Emergency Dept Plans for Post Hospital Care: Home History of present illness: Ms. Mcdaniels is a 61 year old female hypertension, hyperlipidemia, coronary artery disease status post CABG and stent placements, COPD on oxygen at home, atrial fibrillation, type 2 diabetes who presents to the emergency department today with complaints of chest pain, shortness of breath and palpitations. Patient reports this morning when she woke up she had shortness of breath, and felt some palpitations. She then developed pain in her mid sternum radiating to her back and left neck she describes the pain as pressure and lasted about 15 -20 minutes and was relieved by nitroglycerin. She reports that she has also had some nausea and dry heaves today. She reports over the last week she has had chills and sweats, she denies headache, or lightheadedness. She reports her feet are swollen. She reports she has diarrhea about once a day and that lasted for several months, she reports weight loss of 50-60 pounds since October, she reports trouble sleeping, and fatigue. Of note she was hospitalized in February for A. fib with RVR and was found to have hyperthyroid and was started on methimazole, the methimazole was stopped due to thrombocytopenia, and it does not appear that it was restarted as an outpatient. Evaluation in the emergency department included an EKG which showed atrial fibrillation with RVR with heart rate of 121. Troponin was normal at 0.02. TSH was 0, T3 and T4 were elevated. On exam, patient is alert and oriented, in no acute distress. Heart has irregular rhythm, controlled rate on my assessment. Lungs are clear bilaterally to auscultation. She had + 1 bilateral feet edema. She had an unstageable decubitus ulcer on her sacrum. Past Med Surg Social Fam HX - Past Medical History Medical history: atrial fibrillation, COPD, coronary artery disease, hyperlipidemia, hypertension, osteoporosis, thyroid disease (hyperthyroid), other Psychiatric history: depression - Past Surgical History Surgical History: angioplasty/stent, cholecystectomy, coronary bypass (CABG), hysterectomy - Social History Smoking Status: Never smoker Smokeless Tobacco Status: No Alcohol use: none Drug use: none - Family History Mother Adopted: No Family Member Ethnicity: Non- Living Status: Age at : 47 Cause of : cancer Hx Family Cardiac Disorders: Yes ([place]) Hx Family Respiratory Disorders: No Hx Family Cancer: Yes (Bowel Cancer) Hx Family GI Disorders: Yes (Bowel Cancer) Hx Family Endocrine Disorder: Yes (DM) Hx Family Neuromuscular Disorders: No Hx Family Neurologic Disorders: No Hx Family HEENT Disorders: No Hx Family Autoimmune Disorders: No Father Living Status: Age at : 43 Cause of : [place] Hx Family Cardiac Disorders: Yes Internal Medicine - H&P: Meds Ergocalciferol (VITAMIN D2) [Vitamin D2 (50,000 UNIT)] 50,000 unit PO DAVIS [History] Folic Acid 2 mg PO DAILY 01/11/16 [History] Isosorbide MONOnitrate [Isosorbide Mononitrate ER] 120 mg PO DAILY 01/11/16 [ History] Metoprolol XL (24 HR) Succ [Toprol Xl] 100 mg PO DAILY 01/11/16 [History] Multivitamin/Iron/Folic Acid [Centrum Complete Multivit Tab] 1 tab PO DAILY [History] Nitroglycerin [Nitrostat] 0.4 mg SL Q5M PRN 01/11/16 [History] Simvastatin [Zocor] 20 mg PO HS 01/11/16 [History] Venlafaxine HCl [Effexor Xr] 75 mg PO DAILY 01/11/16 [History] Vitamin E 1,000 units PO DAILY 01/11/16 [History] ALPRAZolam [Xanax 1 MG Tablet] 0.25 mg PO BID PRN 10/18/16 [History] Amitriptyline [Elavil] 25 - 50 mg PO HS PRN 10/18/16 [History] Oxycodone HCl/Acetaminophen [Percocet 10-325 mg Tablet] 1 tab PO Q6H PRN [History] Lisinopril [Zestril] 40 mg PO DAILY #0 10/21/16 [Rx] Apixaban [Eliquis] 5 mg PO BID 02/23/17 [History] Paroxetine HCl [Paxil] 20 mg PO DAILY 02/23/17 [History] OxyCODONE ER (12 HR) [OxyCONTIN] 10 mg PO Q12HR #60 tab.er.12h 03/01/17 [Rx] Pregabalin [Lyrica] 100 mg PO BID #0 03/04/17 [Rx] Amlodipine Besylate 2.5 mg PO DAILY 04/06/17 [History] Aspirin 81 mg PO DAILY 04/06/17 [History] Oxygen 2 l .ROUTE AD 04/06/17 [History] Pantoprazole Sodium [Protonix] 40 mg PO DAILY 04/06/17 [History] methIMAzole [Methimazole] 10 mg PO DAILY 04/06/17 [History] Allergies hydrocodone [From Vicodin] Allergy (Verified 04/07/17 14:36) Swelling of Lip/Tongue/Throat All Systems PM: A 10-system review of systems was performed and is negative for pertinent findings except as documented above in the HPI. - Constitutional Constitutional: anorexia, chills, fatigue, night sweats, no fever(s) - EENT Eyes: no change in vision, no discharge, no pain, no photophobia Ears: no ear discharge, no ear pain, no tinnitus Nose, mouth and throat: no dysphagia, no nasal discharge, no neck pain, no sore throat - Cardiovascular Cardiovascular ROS IM: chest pain, dyspnea, edema, palpitations, no diaphoresis , no lightheadedness, no syncope - Respiratory Respiratory: dyspnea, no cough, no wheezing, no excessive phlegm production - Gastrointestinal Gastrointestinal: diarrhea, no abdominal pain, no hematemesis, no hematochezia, no melena, no nausea, no vomiting - Genitourinary Genitourinary: no change in urinary stream, no dysuria, no flank pain, no hematuria - Musculoskeletal Musculoskeletal ROS IM: no numbness, no tingling - Integumentary Integumentary IM: no rash, no unusual bruising - Neurological Neurological ROS: no confusion, no convulsions, no focal weakness, no numbness, no tingling, no tremor(s) - Hematologic/Lymphatic Hematologic/Lymphatic: no easy bruising - Constitutional Vitals: Temp Pulse Resp BP Pulse Ox 97.6 F 98 18 141/83 99 04/06/17 10:32 04/06/17 13:16 04/06/17 13:16 04/06/17 13:16 04/06/17 13:16 General appearance: Present: A&O X 3, pleasant, no acute distress, loss of weight - Head Head exam: Present: atraumatic, normocephalic - Eye Eye exam: Present: PERRL, conjuntiva pink, sclera anicteric Pupils: Present: PERRL - Neck Neck exam general surgery: Present: supple, trachea midline. Absent: lymphadenopathy - Respiratory Respiratory exam: Present: CTAB. Absent: accessory muscle use, rales, rhonchi, wheezes - Cardiovascular Cardiovascular exam: Present: irregular rhythm, +S1, +S2. Absent: diastolic murmur, gallop, rubs, systolic murmur - GI/Abdominal GI/Abdominal exam: Present: normal bowel sounds, soft, no peritoneal signs. Absent: distended, tenderness - Extremities Exam Extremities exam: Present: pedal edema (+1 bilateral), warm, radial pulses palpable and symetrical. Absent: calf tenderness, cyanotic - Neurological Exam Neurological exam: Present: CN II-XII intact, oriented X3, no focal deficits. Absent: facial droop, speech deficit - Skin Skin exam: Present: dry Additional comments: unstageable decubitus ulcer on sacrum. Internal Med - H&P Results - Labs CBC & Chem 7: 04/06/17 10:41 04/06/17 10:41 Labs: All Lab Results (24 Hours) 04/06/17 04/06/17 04/06/17 Range/Units 10:41 10:41 10:41 WBC 5.6 (4.3-11.1) K/mcL RBC 3.67 L (3.82-4.97) M/mcL Hgb 9.5 L (11.5-15.4) g/dL Hct 31.0 L (35.3-44.9) % MCV 84.5 (83.0-100.0) fL MCH 25.9 L (28.0-33.3) pg MCHC 30.6 L (31.6-35.5) g/dL RDW 16.8 H (11.5-14.5) % Plt Count 171 (140-400) K/mcL MPV 11.6 (9.4-12.4) fL Immature Gran % 0.5 (0-4) % Seg Neutrophils % 77.2 % Lymphocytes % 14.4 % Monocytes % 7.9 % Eosinophils % 0.0 % Basophils % 0.0 % Neutrophils # 4.3 (1.6-8.9) K/mcL Lymphocytes # 0.8 (0.6-4.6) K/mcL Monocytes # 0.4 (0.0-1.3) K/mcL Eosinophils # 0.0 (0.0-0.6) K/mcL Basophils # 0.0 (0.0-0.2) K/mcL PT 13.9 H (9.4-12.1) Seconds INR 1.3 APTT 28.8 (26.0-36.0) Seconds Sodium 138 (136-145) mEq/L Potassium 3.6 (3.5-4.5) mEq/L Chloride 105 (98-109) mEq/L Carbon Dioxide 22 (19-29) mEq/L BUN 17 (7-20) mg/dL Creatinine 0.53 L (0.57-1.11) mg/dL Est GFR ( Amer) > 60 (> 60) Est GFR (Non-Af Amer) > 60 (> 60) BUN/Creatinine Ratio 32 H (6-26) Glucose 258 H (70-99) mg/dL Calculated Osmolality 296 (280-300) Calcium 9.1 (8.6-10.8) mg/dL Troponin I (0-0.03) ng/mL TSH 0.000 L (0.350-4.840) mcIU/mL Free T4 2.93 H (0.70-1.48) ng/dl Free T3 17.67 H (1.71-3.71) pg/mL 04/06/17 Range/Units 10:41 WBC (4.3-11.1) K/mcL RBC (3.82-4.97) M/mcL Hgb (11.5-15.4) g/dL Hct (35.3-44.9) % MCV (83.0-100.0) fL MCH (28.0-33.3) pg MCHC (31.6-35.5) g/dL RDW (11.5-14.5) % Plt Count (140-400) K/mcL MPV (9.4-12.4) fL Immature Gran % (0-4) % Seg Neutrophils % % Lymphocytes % % Monocytes % % Eosinophils % % Basophils % % Neutrophils # (1.6-8.9) K/mcL Lymphocytes # (0.6-4.6) K/mcL Monocytes # (0.0-1.3) K/mcL Eosinophils # (0.0-0.6) K/mcL Basophils # (0.0-0.2) K/mcL PT (9.4-12.1) Seconds INR APTT (26.0-36.0) Seconds Sodium (136-145) mEq/L Potassium (3.5-4.5) mEq/L Chloride (98-109) mEq/L Carbon Dioxide (19-29) mEq/L BUN (7-20) mg/dL Creatinine (0.57-1.11) mg/dL Est GFR ( Amer) (> 60) Est GFR (Non-Af Amer) (> 60) BUN/Creatinine Ratio (6-26) Glucose (70-99) mg/dL Calculated Osmolality (280-300) Calcium (8.6-10.8) mg/dL Troponin I 0.02 (0-0.03) ng/mL TSH (0.350-4.840) mcIU/mL Free T4 (0.70-1.48) ng/dl Free T3 (1.71-3.71) pg/mL - Diagnostic Studies Chest x-ray Additional comments: Chest X-Ray 04/06/17 10:47 IMPRESSION: Stable appearing chest without acute cardiopulmonary process. D/ / Jackson Lopez MD / Jackson Lopez MD Interpreting Provider: Jackson Lopez MD <Collins Devlin - Last Filed: 04/06/17 15:19> Date of Encounter: 04/06/17 Internal Medicine - H&P: HPI History of present illness: Ms. Mcdaniels is a 61 year old female All Systems PM: A 10-system review of systems was performed and is negative for pertinent findings except as documented above in the HPI. - Constitutional Vitals: Temp Pulse Resp BP Pulse Ox 97.5 F L 96 16 139/84 99 04/06/17 15:03 04/06/17 15:03 04/06/17 15:03 04/06/17 15:03 04/06/17 15:03 Internal Med - H&P Results - Labs CBC & Chem 7: 04/06/17 10:41 04/06/17 10:41 - Attending Attestation I examined this patient and my medical decision-making was reviewed with Ms. Olivo. I agree with the documented findings, disposition and treatment plan as described except to the extent set forth below. Briefly, Mr. Mcdaniels is a 61-year-old female with a history of weight loss that has been ongoing since June 2016 associated with tremors, sleep problems. She has been diagnosed with hyperthyroidism during the past admission and was placed on methimazole in the hospital. However, as she experienced thrombocytopenia, methimazole was discontinued and it was recommended at the time of discharge that the patient be started on propylthiouracil as an outpatient once her platelet count improves. However, it appears that the patient was not able to be started on PTU or referred to an media professional after discharge. Hence, the patient resented to the emergency room due to palpitations and chest pain. She was found to have atrial fibrillation with rapid ventricle response in the emergency room and was given intravenous beta delfino. Her TSH was again undetectable and T3 and T4 were found to be elevated. Patient reports feeling jittery and having lightheadedness. On exam, she is irregularly irregular heart rate and loud heart sounds. Pulmonary exam reveals clear breath sounds. Laboratory data reviewed. Prior records reviewed. Patient will be admitted to the hospital due to her atrial fibrillation with rapid ventricular response that is due to her hyperthyroidism. Patient is high risk due to risk of lethal arrhythmias. I expect the patient to be in the hospital at least for 2 midnights. Resume oral beta blockers. Patient will be started on PTU at low-dose for her hyperthyroidism. She was explained in detail the diagnosis of hyperthyroidism and the available treatment options including surgery versus radioablation and the need for follow-up with endocrinology after discharge. We will try to arrange endocrinology follow-up at the time of discharge. Monitor blood counts closely. Continue eliquis for anticoagulation. Unstageable decubitus ulcer present on admission-wound care consult. Management of chronic medical problems-diabetes, COPD. Protein calorie malnutrition CONSUELO Felipe
[2017-04-06] MEDS: Insulin LISPRO 300 UNITS/3 ML VIAL SQ SCH ×2 (16:46→20:49)
[2017-04-06] MEDS: Aspirin 81 MG TAB.CHEW PO SCH (16:47)
[2017-04-06] MEDS: Metoprolol XL (24 HR) Succ 50 MG TAB.ER.24H PO SCH (16:56)
[2017-04-06] MEDS: APIXABAN 5 MG TABLET PO SCH ×2 (16:56→20:52)
[2017-04-06] MEDS: Isosorbide MONOnitrate (24 HR) 60 MG TAB.ER.24H PO SCH (16:56)
[2017-04-06] MEDS: amLODIPine 5 MG TABLET PO SCH (16:56)
[2017-04-06] MEDS: Lisinopril 20 MG TABLET PO SCH (16:56)
[2017-04-06] MEDS: *HR* OxyCODONE ER (12 HR) 10 MG TABLET PO SCH (16:56)
--- NOTE | 2017-04-06 18:24 | Event Note ---
Date of Encounter: 04/06/17 Time of Encounter: 18:22 Patient's troponin went up to 0.07. Likely demand ischemia from her afib with RVR. However, she has significant CAD history s/p CABG and stent placements with recent LHC revealing occlusion of graft and recommending medical management. Patient is already on Eliquis for anti-coagulation, as well as aspirin, statin, betablocker. Will add one time dose of plavix. Continue to trend troponin. If elevates again, consult cardiology and consider stopping eliquis in favor of heparin drip. Repeat EKG in the morning.
[2017-04-06] MEDS: *HR* OxyCODONE/APAP 10/325 TABLET PO PRN (19:02)
[2017-04-06] MEDS: Pregabalin 50 MG CAPSULE PO SCH (20:52)
[2017-04-06] MEDS: Nitroglycerin 0.4 MG TAB.SUBL SL PRN ×2 (22:52→22:58)
--- NOTE | 2017-04-06 23:14 | Event Note ---
Date of Encounter: 04/06/17 Time of Encounter: 23:08 I was called by the nurse to the patient's room due to chest pain. Upon on my arrival the patient was complaining of 8 out of 10 chest pain in the center of the chest radiating to her left neck. Patient states that this pain is the same as her previous cardiac pain and she has frequently at home. EKG was performed which showed atrial fibrillation with a rate in the 80s and no new ischemic changes as compared to previous EKGs. Repeat troponin is pending. Patient's pain was relieved completely after 2 doses of sublingual nitroglycerin. Patient is chest pain-free at this time. Per the admitting nurse practitioners note the patient has known cardiac disease with occlusion of bypass vessels and cardiology had recommended medical management in the past. The admitting team stated that cardiology will be consulted.
[2017-04-07] MEDS: *HR* OxyCODONE/APAP 10/325 TABLET PO PRN ×3 (01:15→20:37)
[2017-04-07 05:41] LABS: Basophils % 0.3 %; Eosinophils % 1.2 %; Hemoglobin 8.7 g/dL (11.5-15.4); Immature Granulocytes % 0.3 % (0-4); Lymphocytes # 1.6 K/mcL (0.6-4.6); Lymphocytes % 44.8 %; Mean Corpuscular HGB Conc 31.1 g/dL (31.6-35.5); Mean Corpuscular Hemoglobin 26.8 pg (28.0-33.3); Mean Corpuscular Volume 86.2 fL (83.0-100.0); Mean Platelet Volume 12.7 fL (9.4-12.4); Monocytes # 0.3 K/mcL (0.0-1.3); Monocytes % 7.8 %; Neutrophils # 1.6 K/mcL (1.6-8.9); Nucleated Red Blood Cells 0.6 /100 WBC (0); Platelet Count 154 K/mcL (140-400); Red Blood Count 3.25 M/mcL (3.82-4.97); Red Cell Distribution Width 17.2 % (11.5-14.5); Segmented Neutrophils % 45.6 %
[2017-04-07] MEDS: *HR* OxyCODONE ER (12 HR) 10 MG TABLET PO SCH ×2 (05:49→17:18)
[2017-04-07 05:51] LABS: BUN/Creatinine Ratio 30 (6-26); Blood Urea Nitrogen 13 mg/dL (7-20); Calcium 8.5 mg/dL (8.6-10.8); Carbon Dioxide 25 mEq/L (19-29); Chloride 111 mEq/L (98-109); Glucose 91 mg/dL (70-99); Osmolality,Calculated 296 (280-300); Potassium 3.5 mEq/L (3.5-4.5); Sodium 143 mEq/L (136-145); eGFR For African Americans > 60 (> 60); eGFR For Non-African Americans > 60 (> 60)
[2017-04-07 06:16] LABS: Triiodothyronine (T3) Free 8.57 pg/mL (1.71-3.71); Triiodothyronine (T3) Total 2.26 ng/mL (0.58-1.59)
[2017-04-07] MEDS: Lisinopril 20 MG TABLET PO SCH (08:40)
[2017-04-07] MEDS: Isosorbide MONOnitrate (24 HR) 60 MG TAB.ER.24H PO SCH (08:41)
[2017-04-07] MEDS: Venlafaxine XR (24 HR) 75 MG CAP.ER.24H PO SCH (08:41)
[2017-04-07] MEDS: Pregabalin 50 MG CAPSULE PO SCH ×2 (08:41→20:37)
[2017-04-07] MEDS: APIXABAN 5 MG TABLET PO SCH ×2 (08:41→20:37)
[2017-04-07] MEDS: Metoprolol XL (24 HR) Succ 50 MG TAB.ER.24H PO SCH (08:41)
[2017-04-07] MEDS: Aspirin 81 MG TAB.CHEW PO SCH (08:42)
[2017-04-07] MEDS: Insulin LISPRO 300 UNITS/3 ML VIAL SQ SCH ×4 (08:42→23:46)
[2017-04-07] MEDS: amLODIPine 5 MG TABLET PO SCH (08:42)
--- NOTE | 2017-04-07 10:31 | Cardiology Consult Note ---
Date of Encounter: 04/07/17 Time of Encounter: 10:30 Assessment and Plan (1) Chest pain of uncertain etiology Current Visit: Yes Status: Acute Discussion w patient/family: The assessment and plan as outlined above was discussed with the patient and/or family members who expressed understanding and agreement. All questions were answered. Thank you for involving us in the care of your patient. Please call with any questions. Feel angina needs to be treated medically appears to be rate related with afib sugg: B Blockers consider increase dose . no amiodarone ASA Statins consider Ranexa 500 bid if angina presists: will need a cath to attemptd PTCA to RCA ? d/w pt History of Present Illness Chief complaint: Chest pain, palpitations History of present illness: Ms. Mcdaniels is a 61 year old female Patient presents with palpitations, chest pain and shortness of breath. EKG showed Afib with RVR with HR 121. She has known afib and is on metoprolol for rate control and eliquis for anticoagulation. She had not yet taken her medications this morning. She also has hyperthyroidism and did not continue her methimazole as an outpatient after her last hospitalization. AFib likely secondary to or exacerbated by hyperthyroidism. 5mg IV metoprolol given in ED. HR improved to 80s. Continue home dose of metoprolol, eliquis. Start propylthiouracil for hyperthyroid. Pt had a cath done with showed KOTHARI to LAD patent VG to PDA occluded , with [place] RCA subequent stenosis . ef was normal , decided to treat pt medically. Now here for palpitations with CP Pt was also found to be severely hypothyroid. EKG reviewed by me showed afib with ST T changes in Ant leads Presently CP free Past Med Surg Social Fam HX - Past Medical History Medical history: atrial fibrillation, coronary artery disease, hyperlipidemia, hypertension, osteoporosis, other Psychiatric history: depression - Past Surgical History Surgical History: cholecystectomy, coronary bypass (CABG), hysterectomy - Social History Smoking Status: Never smoker Smokeless Tobacco Status: No Alcohol use: none Drug use: none - Family History Father Living Status: Age at : 43 Cause of : [place] Hx Family Cardiac Disorders: Yes Mother Adopted: No Family Member Ethnicity: Non- Living Status: Age at : 47 Cause of : cancer Hx Family Cardiac Disorders: Yes ([place]) Hx Family Respiratory Disorders: No Hx Family Cancer: Yes (Bowel Cancer) Hx Family GI Disorders: Yes (Bowel Cancer) Hx Family Endocrine Disorder: Yes (DM) Hx Family Neuromuscular Disorders: No Hx Family Neurologic Disorders: No Hx Family HEENT Disorders: No Hx Family Autoimmune Disorders: No Medications and Allergies Ergocalciferol (VITAMIN D2) [Vitamin D2 (50,000 UNIT)] 50,000 unit PO DAVIS [History] Folic Acid 2 mg PO DAILY 01/11/16 [History] Isosorbide MONOnitrate [Isosorbide Mononitrate ER] 120 mg PO DAILY 01/11/16 [ History] Metoprolol XL (24 HR) Succ [Toprol Xl] 100 mg PO DAILY 01/11/16 [History] Multivitamin/Iron/Folic Acid [Centrum Complete Multivit Tab] 1 tab PO DAILY [History] Nitroglycerin [Nitrostat] 0.4 mg SL Q5M PRN 01/11/16 [History] Simvastatin [Zocor] 20 mg PO HS 01/11/16 [History] Venlafaxine HCl [Effexor Xr] 75 mg PO DAILY 01/11/16 [History] Vitamin E 1,000 units PO DAILY 01/11/16 [History] ALPRAZolam [Xanax 1 MG Tablet] 0.25 mg PO BID PRN 10/18/16 [History] Amitriptyline [Elavil] 25 - 50 mg PO HS PRN 10/18/16 [History] Oxycodone HCl/Acetaminophen [Percocet 10-325 mg Tablet] 1 tab PO Q6H PRN [History] Lisinopril [Zestril] 40 mg PO DAILY #0 10/21/16 [Rx] Apixaban [Eliquis] 5 mg PO BID 02/23/17 [History] Paroxetine HCl [Paxil] 20 mg PO DAILY 02/23/17 [History] OxyCODONE ER (12 HR) [OxyCONTIN] 10 mg PO Q12HR #60 tab.er.12h 03/01/17 [Rx] Pregabalin [Lyrica] 100 mg PO BID #0 03/04/17 [Rx] Amlodipine Besylate 2.5 mg PO DAILY 04/06/17 [History] Aspirin 81 mg PO DAILY 04/06/17 [History] Oxygen 2 l .ROUTE AD 04/06/17 [History] Pantoprazole Sodium [Protonix] 40 mg PO DAILY 04/06/17 [History] methIMAzole [Methimazole] 10 mg PO DAILY 04/06/17 [History] Allergies hydrocodone [From Vicodin] Allergy (Verified 02/23/17 14:36) Swelling of Lip/Tongue/Throat All Systems Review: A 10-system review of systems was performed and is negative for pertinent findings except as documented above in the HPI. Physical Examination Vital Signs, Last 4 Hours Temp Pulse Resp BP Pulse Ox 04/07/17 07:03 97.8 F 65 16 133/71 96 Neck: No JVD (8-10 cm with a large V wave ) Results 04/07/17 05:25 04/07/17 05:25 Lab Results 04/06/17 04/06/17 04/07/17 17:36 23:13 05:25 WBC 3.5 L Hgb 8.7 L Hct 28.0 L Plt Count 154 Sodium Potassium Chloride Carbon Dioxide BUN Creatinine Glucose Calcium Troponin I 0.05 H* 0.04 H* TSH 04/07/17 05:25 WBC Hgb Hct Plt Count Sodium 143 Potassium 3.5 Chloride 111 H Carbon Dioxide 25 BUN 13 Creatinine 0.43 L Glucose 91 Calcium 8.5 L Troponin I TSH 0.000 L Consult Discharge Plan - Plan Referrals: Matthias Polo MD [Primary Care Provider] -
--- NOTE | 2017-04-07 10:33 | Cardiology Consult Note ---
Date of Encounter: 04/07/17 Time of Encounter: 10:30 Assessment and Plan Discussion w patient/family: The assessment and plan as outlined above was discussed with the patient and/or family members who expressed understanding and agreement. All questions were answered. Thank you for involving us in the care of your patient. Please call with any questions. History of Present Illness History of present illness: Ms. Mcdaniels is a 61 year old female Past Med Surg Social Fam HX - Past Medical History Medical history: atrial fibrillation, coronary artery disease, hyperlipidemia, hypertension, osteoporosis, other Psychiatric history: depression - Past Surgical History Surgical History: cholecystectomy, coronary bypass (CABG), hysterectomy - Social History Smoking Status: Never smoker Smokeless Tobacco Status: No Alcohol use: none Drug use: none - Family History Father Living Status: Age at : 43 Cause of : [place] Hx Family Cardiac Disorders: Yes Mother Adopted: No Family Member Ethnicity: Non- Living Status: Age at : 47 Cause of : cancer Hx Family Cardiac Disorders: Yes ([place]) Hx Family Respiratory Disorders: No Hx Family Cancer: Yes (Bowel Cancer) Hx Family GI Disorders: Yes (Bowel Cancer) Hx Family Endocrine Disorder: Yes (DM) Hx Family Neuromuscular Disorders: No Hx Family Neurologic Disorders: No Hx Family HEENT Disorders: No Hx Family Autoimmune Disorders: No Medications and Allergies Ergocalciferol (VITAMIN D2) [Vitamin D2 (50,000 UNIT)] 50,000 unit PO DAVIS [History] Folic Acid 2 mg PO DAILY 01/11/16 [History] Isosorbide MONOnitrate [Isosorbide Mononitrate ER] 120 mg PO DAILY 01/11/16 [ History] Metoprolol XL (24 HR) Succ [Toprol Xl] 100 mg PO DAILY 01/11/16 [History] Multivitamin/Iron/Folic Acid [Centrum Complete Multivit Tab] 1 tab PO DAILY [History] Nitroglycerin [Nitrostat] 0.4 mg SL Q5M PRN 01/11/16 [History] Simvastatin [Zocor] 20 mg PO HS 01/11/16 [History] Venlafaxine HCl [Effexor Xr] 75 mg PO DAILY 01/11/16 [History] Vitamin E 1,000 units PO DAILY 01/11/16 [History] ALPRAZolam [Xanax 1 MG Tablet] 0.25 mg PO BID PRN 10/18/16 [History] Amitriptyline [Elavil] 25 - 50 mg PO HS PRN 10/18/16 [History] Oxycodone HCl/Acetaminophen [Percocet 10-325 mg Tablet] 1 tab PO Q6H PRN [History] Lisinopril [Zestril] 40 mg PO DAILY #0 10/21/16 [Rx] Apixaban [Eliquis] 5 mg PO BID 02/23/17 [History] Paroxetine HCl [Paxil] 20 mg PO DAILY 02/23/17 [History] OxyCODONE ER (12 HR) [OxyCONTIN] 10 mg PO Q12HR #60 tab.er.12h 03/01/17 [Rx] Pregabalin [Lyrica] 100 mg PO BID #0 03/04/17 [Rx] Amlodipine Besylate 2.5 mg PO DAILY 04/06/17 [History] Aspirin 81 mg PO DAILY 04/06/17 [History] Oxygen 2 l .ROUTE AD 04/06/17 [History] Pantoprazole Sodium [Protonix] 40 mg PO DAILY 04/06/17 [History] methIMAzole [Methimazole] 10 mg PO DAILY 04/06/17 [History] Allergies hydrocodone [From Vicodin] Allergy (Verified 02/23/17 14:36) Swelling of Lip/Tongue/Throat All Systems Review: A 10-system review of systems was performed and is negative for pertinent findings except as documented above in the HPI. Physical Examination Vital Signs, Last 4 Hours Temp Pulse Resp BP Pulse Ox 04/07/17 07:03 97.8 F 65 16 133/71 96 Results 04/07/17 05:25 04/07/17 05:25 Lab Results 04/06/17 04/06/17 04/07/17 17:36 23:13 05:25 WBC 3.5 L Hgb 8.7 L Hct 28.0 L Plt Count 154 Sodium Potassium Chloride Carbon Dioxide BUN Creatinine Glucose Calcium Troponin I 0.05 H* 0.04 H* TSH 04/07/17 05:25 WBC Hgb Hct Plt Count Sodium 143 Potassium 3.5 Chloride 111 H Carbon Dioxide 25 BUN 13 Creatinine 0.43 L Glucose 91 Calcium 8.5 L Troponin I TSH 0.000 L Consult Discharge Plan - Plan Referrals: Matthias Polo MD [Primary Care Provider] -
[2017-04-07] MEDS: *HR* Metoprolol 5 MG/5 ML VIAL IVP SCH (12:20)
--- NOTE | 2017-04-07 13:01 | Internal Med Progress Note ---
<Mp Rodriguez - Last Filed: 04/07/17 12:57> Date of Encounter: 04/07/17 Time of Encounter: 12:58 - Assessment and plan (1) Angina at rest Current Visit: Yes Status: Acute Assessment and plan: Patient reports history of having substernal chest pain is relieved by nitroglycerin associated with shortness of breath, worsens with exertion. She had a similar episode last night. EKG showed atrial fibrillation with a rate in the 80s and ST-T wave changes in the anterior leads. Unstable angina: Patient is status post CABG and stent placements. Patient a left heart catheter in December 2015 showed patent KOTHARI to LAD, Occluded SVG to PDA, and RCA had 80-100% stenosis with collateralization. Continue aspirin, statin, metoprolol, Imdur, lisinopril. Start Ranexa. Cardiology was consulted: Recommend increase dose of beta blockers, and starting Ranexa. Possible left heart catheter patient's angina persists. (2) Atrial fibrillation with RVR Current Visit: Yes Status: Resolved Assessment and plan: 61-year-old female presents with A. fib RVR which improved with IV metoprolol. Patient has a history of A. fib and is on metoprolol and will request. We will continue this. Patient is also hyperthyroid. Now on PTU. currently rate controlled. (3) Hyperthyroidism Current Visit: Yes Status: Acute Assessment and plan: Patient was admitted in February for A. fib RVR was found to be hyperthyroid. She was started on methimazole which was discontinued due to thrombocytopenia. She did not have any other treatment started outpatient and did not have a auto parts handler appointment. Patient has lost 50-60 pounds since October, has daily diarrhea, fatigue, trouble sleeping. Her TSH was 0 with a T3 and T4 that were elevated. 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 (4) Decubitus ulcer Current Visit: Yes Status: Chronic Assessment and plan: Stage III decubitus ulcer with purulent discharge. Deveolped when she was in rehab. wound care consulted. continue daily dressing changes. turn and reposition q2hr Qualifiers: Pressure ulcer location: sacral region Pressure ulcer stage: stage 3 Qualified Code(s): L89.153 - Pressure ulcer of sacral region, stage 3 (5) Type 2 diabetes mellitus Current Visit: Yes Status: Chronic Assessment and plan: Controlled. Continue SSI and cardiac ada diet. Qualifiers: Diabetes mellitus complication status: without complication Diabetes mellitus fci insulin use: without fci use Qualified Code(s): E11.9 - Type 2 diabetes mellitus without complications (6) DVT prophylaxis Current Visit: Yes Status: Acute Assessment and plan: Continue eliquis - Subjective Interval history: 61-year-old female presents with chief complaint of chest pain, shortness of breath and palpitations. Chest pain was associated shortness of breath, nausea. Pain is located in the mid sternum radiating to the back and left neck. Pain is described as a pressure last 15-20 minutes and relieved by nitroglycerin. Patient also reports that she has been having diarrhea, weight loss of 50-60 pounds since October, trouble sleeping, fatigue. In February patient was hospitalized for A. fib RVR and was found to be hyperthyroid. At that time she was started on methimazole but that was discontinued due to thrombocytopenia. Patient was then supposed to be started on PTU however she never had a follow-up endocrinology appointment set up. During this visit patient was found to be in A. fib RVR with a heart rate of 121. She has history of A. fib and is on metoprolol for rate control and FOR anticoagulation. Patient was given 5 g IV metoprolol in the ED and her heart rate improved to the 80s. She was started on PTU for hyperthyroidism. This morning patient is chest pain-free. She denies shortness of breath. She states she has been having diarrhea and losing weight. Last night patient had chest pain as 8 out of 10 substernal radiating to the left neck which is similar to her previous cardiac pain she has frequently at home. EKG showed atrial fibrillation at a rate of 80. Troponin 0.04. Patient's chest pain was relieved by 2 doses of sublingual nitroglycerin. - Constitutional Vitals: Temp Pulse Resp BP Pulse Ox 97.7 F 67 16 135/63 98 04/07/17 11:18 04/07/17 11:18 04/07/17 11:18 04/07/17 11:18 04/07/17 11:18 General appearance: Present: A&O X 3, pleasant, no acute distress, loss of weight - Neck Neck exam general surgery: Present: tenderness (Absent tenderness of thyroid.), supple, trachea midline. Absent: lymphadenopathy, thyromegaly - Respiratory Respiratory exam: Present: CTAB. Absent: accessory muscle use, rales, rhonchi, wheezes - Cardiovascular Cardiovascular exam: Present: irregular rhythm, +S1, +S2. Absent: diastolic murmur, gallop, rubs, systolic murmur - GI/Abdominal GI/Abdominal exam: Present: normal bowel sounds, soft, no peritoneal signs. Absent: distended, tenderness - Extremities Exam Extremities exam: Present: warm, radial pulses palpable and symetrical. Absent : calf tenderness, cyanotic, pedal edema - Neurological Exam Neurological exam: Present: CN II-XII intact, oriented X3, no focal deficits. Absent: pronater drift, facial droop, speech deficit - Skin Additional comments: 2 decubitus ulcers stage two with purulent drainage around the sacrum. Well dressed. Internal Medicine: Result - Labs CBC & Chem 7: 04/07/17 05:25 04/07/17 05:25 Labs: Short CBC 04/07/17 Range/Units 05:25 WBC 3.5 L (4.3-11.1) K/mcL Hgb 8.7 L (11.5-15.4) g/dL Hct 28.0 L (35.3-44.9) % Plt Count 154 (140-400) K/mcL Neutrophils # 1.6 (1.6-8.9) K/mcL BMP 04/07/17 05:25 Sodium 143 Potassium 3.5 Chloride 111 H Carbon Dioxide 25 BUN 13 Creatinine 0.43 L Glucose 91 Calcium 8.5 L Cardiac Enzymes 04/06/17 04/06/17 Range/Units 17:36 23:13 Troponin I 0.05 H* 0.04 H* (0-0.03) ng/mL - ABG Interpretation ABG results: PT/INR, D-dimer PT 13.9 Seconds (9.4-12.1) H 04/06/17 10:41 Consult Discharge Plan - Plan Referrals: Matthias Polo MD [Primary Care Provider] - <Dagoberto Mcdaniels - Last Filed: 04/07/17 18:09> Date of Encounter: 04/07/17 - Assessment and plan (1) Chest pain Current Visit: No Status: Acute Assessment and plan: Per cardiology. Meds adjusted. Considering cardiac cath. Qualifiers: Chest pain type: chest pain due to myocardial ischemia Ischemic chest pain type: unstable angina pectoris Qualified Code(s): I20.0 - Unstable angina (2) Atrial fibrillation Current Visit: Yes Status: Acute Assessment and plan: Rate control. Qualifiers: Atrial fibrillation type: paroxysmal Qualified Code(s): I48.0 - Paroxysmal atrial fibrillation (3) Hyperthyroidism Current Visit: Yes Status: Acute (4) HTN (hypertension) Current Visit: No Status: Chronic Assessment and plan: Continue monitor. Qualifiers: Hypertension type: essential hypertension Qualified Code(s): I10 - Essential (primary) hypertension (5) CAD (coronary artery disease) Current Visit: Yes Status: Chronic Qualifiers: Coronary Disease-Associated Artery/Lesion type: [place] artery [place] vs. transplanted heart: [place] heart Associated angina: with unstable angina Qualified Code(s): I25.110 - Atherosclerotic heart disease of [place] coronary artery with unstable angina pectoris (6) Decubitus ulcer Current Visit: Yes Status: Chronic Assessment and plan: Stage III decubitus ulcer with purulent discharge. Deveolped when she was in rehab. wound care consulted. continue daily dressing changes. turn and reposition q2hr Qualifiers: Pressure ulcer location: sacral region Pressure ulcer stage: stage 3 Qualified Code(s): L89.153 - Pressure ulcer of sacral region, stage 3 - Constitutional Vitals: Temp Pulse Resp BP Pulse Ox 98.1 F 65 16 128/67 97 04/07/17 15:28 04/07/17 15:28 04/07/17 15:28 04/07/17 15:28 04/07/17 15:28 Internal Medicine: Result - Labs CBC & Chem 7: 04/07/17 05:25 04/07/17 05:25 Labs: Short CBC 04/07/17 Range/Units 05:25 WBC 3.5 L (4.3-11.1) K/mcL Hgb 8.7 L (11.5-15.4) g/dL Hct 28.0 L (35.3-44.9) % Plt Count 154 (140-400) K/mcL Neutrophils # 1.6 (1.6-8.9) K/mcL BMP 04/07/17 05:25 Sodium 143 Potassium 3.5 Chloride 111 H Carbon Dioxide 25 BUN 13 Creatinine 0.43 L Glucose 91 Calcium 8.5 L Cardiac Enzymes 04/06/17 04/06/17 Range/Units 17:36 23:13 Troponin I 0.05 H* 0.04 H* (0-0.03) ng/mL - ABG Interpretation ABG results: PT/INR, D-dimer PT 13.9 Seconds (9.4-12.1) H 04/06/17 10:41 - Attending Attestation I examined this patient and my medical decision-making was reviewed with the Resident Physician on 04/07/17. I agree with the documented findings, disposition and treatment plan as described except to the extent set forth below. Ms. Mcdaniels has been admitted for rapid atrial fib and unstable angina. She is moderate to high risk due to potential for worsening cardiac status. Ms. Mcdaniels is up in chair. She is having some pain in decubitus. She had chest pain last evening and EKG was changed. She was placed in rehab last admission but never saw auto parts handler. Was on no thyroid medication and became tachy again. Currently chest pain free. Exam Alert. Comfortable Heart irreg - not tachy Lungs clear. Dressing intact No edema I/P 1. [place] - per card 2. atrial fib with RVR 3. Hyperthyroidism Further diagnoses and plan as above.
[2017-04-07] MEDS: Ranolazine 500 MG TAB.ER.12H PO SCH ×2 (14:38→20:37)
[2017-04-07] MEDS: Ondansetron ODT 4 MG TAB.RAPDIS SL PRN (21:15)
[2017-04-08 05:47] LABS: Hematocrit 29.7 % (35.3-44.9); Mean Corpuscular HGB Conc 30.3 g/dL (31.6-35.5); Mean Corpuscular Hemoglobin 26.1 pg (28.0-33.3); Mean Corpuscular Volume 86.1 fL (83.0-100.0); Mean Platelet Volume 12.6 fL (9.4-12.4); Platelet Count 155 K/mcL (140-400); Red Blood Count 3.45 M/mcL (3.82-4.97); Red Cell Distribution Width 16.8 % (11.5-14.5)
[2017-04-08] MEDS: *HR* OxyCODONE ER (12 HR) 10 MG TABLET PO SCH ×2 (05:58→17:47)
[2017-04-08 06:09] LABS: BUN/Creatinine Ratio 35 (6-26); Blood Urea Nitrogen 16 mg/dL (7-20); Calcium 8.6 mg/dL (8.6-10.8); Carbon Dioxide 25 mEq/L (19-29); Chloride 108 mEq/L (98-109); Glucose 101 mg/dL (70-99); Osmolality,Calculated 293 (280-300); Sodium 141 mEq/L (136-145); eGFR For African Americans > 60 (> 60); eGFR For Non-African Americans > 60 (> 60)
[2017-04-08 06:17] LABS: Potassium 4.3 mEq/L (3.5-4.5)
[2017-04-08] MEDS: Insulin LISPRO 300 UNITS/3 ML VIAL SQ SCH ×3 (08:34→16:57)
[2017-04-08] MEDS: Ranolazine 500 MG TAB.ER.12H PO SCH ×2 (08:42→21:01)
[2017-04-08] MEDS: Isosorbide MONOnitrate (24 HR) 60 MG TAB.ER.24H PO SCH (08:47)
[2017-04-08] MEDS: *HR* OxyCODONE/APAP 10/325 TABLET PO PRN ×2 (08:47→21:01)
[2017-04-08] MEDS: Venlafaxine XR (24 HR) 75 MG CAP.ER.24H PO SCH (08:47)
[2017-04-08] MEDS: APIXABAN 5 MG TABLET PO SCH ×2 (08:47→21:01)
[2017-04-08] MEDS: Lisinopril 20 MG TABLET PO SCH (08:47)
[2017-04-08] MEDS: Pregabalin 50 MG CAPSULE PO SCH ×2 (08:48→21:01)
[2017-04-08] MEDS: amLODIPine 5 MG TABLET PO SCH (08:48)
[2017-04-08] MEDS: Metoprolol XL (24 HR) Succ 50 MG TAB.ER.24H PO SCH (08:48)
[2017-04-08] MEDS: Aspirin 81 MG TAB.CHEW PO SCH (08:48)
--- NOTE | 2017-04-08 09:29 | Cardiology Progress Note ---
Date of Encounter: 04/08/17 Time of Encounter: 09:26 Assessment and Plan Discussion w patient/family: The assessment and plan as outlined above was discussed with the patient and/or family members who expressed understanding and agreement. All questions were answered. Thank you for involving us in the care of your patient. Please call with any questions. Pt's afib is better controlled , less angina, no sob, pnd plan: cont present rx follow with Cardiology in office Objective Vital Signs, Last 4 Hours Temp Pulse Resp BP Pulse Ox 04/08/17 07:53 94 04/08/17 06:51 98.2 F 58 16 151/84 94 Cardiac: Reg Rate and Rhythm (irregular pulse , HR is better controlled ) Results 04/08/17 04:52 04/08/17 04:52 Lab Results 04/08/17 04/08/17 04:52 04:52 WBC 4.0 L Hgb 9.0 L Hct 29.7 L Plt Count 155 Sodium 141 Potassium 4.3 Chloride 108 Carbon Dioxide 25 BUN 16 Creatinine 0.46 L Glucose 101 H Calcium 8.6 Consult Discharge Plan - Plan Referrals: Matthias Polo MD [Primary Care Provider] -
--- NOTE | 2017-04-08 12:51 | Internal Med Progress Note ---
<Mp Rodriguez - Last Filed: 04/08/17 12:39> Date of Encounter: 04/08/17 Time of Encounter: 12:39 - Assessment and plan (1) Angina at rest Current Visit: Yes Status: Acute Assessment and plan: Patient reports history of having substernal chest pain is relieved by nitroglycerin associated with shortness of breath, worsens with exertion. She had a similar episode last night. EKG showed atrial fibrillation with a rate in the 80s and ST-T wave changes in the anterior leads. Unstable angina: Patient is status post CABG and stent placements. Patient a left heart catheter in December 2015 showed patent KOTHARI to LAD, Occluded SVG to PDA, and RCA had 80-100% stenosis with collateralization. Continue aspirin, statin, metoprolol, Imdur, lisinopril. Korina has hx of not tolerating ranexa and refused medication. Cardiology was consulted: Recommend increase dose of beta blockers and medical management. (2) Atrial fibrillation with RVR Current Visit: Yes Status: Resolved Assessment and plan: 61-year-old female presents with A. fib RVR which improved with IV metoprolol. Patient has a history of A. fib and is on metoprolol and will request. We will continue this. Patient is also hyperthyroid. Now on PTU. currently rate controlled. (3) Hyperthyroidism Current Visit: Yes Status: Acute Assessment and plan: Patient was admitted in February for A. fib RVR was found to be hyperthyroid. She was started on methimazole which was discontinued due to thrombocytopenia. She did not have any other treatment started outpatient and did not have a pcas appointment. Patient has lost 50-60 pounds since October, has daily diarrhea, fatigue, trouble sleeping. Her TSH was 0 with a T3 and T4 that were elevated. 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 (4) Decubitus ulcer Current Visit: Yes Status: Chronic Assessment and plan: Stage III decubitus ulcer with purulent discharge. Deveolped when she was in rehab. wound care consulted. continue daily dressing changes. turn and reposition q2hr Qualifiers: Pressure ulcer location: sacral region Pressure ulcer stage: stage 3 Qualified Code(s): L89.153 - Pressure ulcer of sacral region, stage 3 (5) Type 2 diabetes mellitus Current Visit: Yes Status: Chronic Assessment and plan: Controlled. Continue SSI and cardiac ada diet. Qualifiers: Diabetes mellitus complication status: without complication Diabetes mellitus senior care insulin use: without senior care use Qualified Code(s): E11.9 - Type 2 diabetes mellitus without complications (6) DVT prophylaxis Current Visit: Yes Status: Acute Assessment and plan: Continue eliquis - Subjective Interval history: No acute events overnight. Patient denies any chest pain, shortness of breath. She states she continues to have pain in her lower back side where her decubitus ulcers are. States that the decubitus ulcer has been improving and she receives daily dressing changes by her daughter at home. - Constitutional Vitals: Temp Pulse Resp BP Pulse Ox 98.4 F 57 16 118/60 96 04/08/17 11:33 04/08/17 11:33 04/08/17 11:33 04/08/17 11:33 04/08/17 11:33 General appearance: Present: A&O X 3, pleasant, no acute distress, loss of weight - Respiratory Respiratory exam: Present: CTAB. Absent: accessory muscle use, rales, rhonchi, wheezes - Cardiovascular Cardiovascular exam: Present: irregular rhythm, +S1, +S2 - GI/Abdominal GI/Abdominal exam: Present: normal bowel sounds, soft, no peritoneal signs. Absent: distended, tenderness - Skin Additional comments: 2 decubitus ulcers stage two with purulent drainage around the sacrum. Well dressed. Internal Medicine: Result - Labs CBC & Chem 7: 04/08/17 04:52 04/08/17 04:52 Labs: Short CBC 04/08/17 Range/Units 04:52 WBC 4.0 L (4.3-11.1) K/mcL Hgb 9.0 L (11.5-15.4) g/dL Hct 29.7 L (35.3-44.9) % Plt Count 155 (140-400) K/mcL BMP 04/08/17 04:52 Sodium 141 Potassium 4.3 Chloride 108 Carbon Dioxide 25 BUN 16 Creatinine 0.46 L Glucose 101 H Calcium 8.6 - ABG Interpretation ABG results: PT/INR, D-dimer PT 13.9 Seconds (9.4-12.1) H 04/06/17 10:41 Consult Discharge Plan - Plan Referrals: Matthias Polo MD [Primary Care Provider] - <Dagoberto Mcdaniels - Last Filed: 04/08/17 18:11> Date of Encounter: 04/08/17 - Assessment and plan (1) Atrial fibrillation Current Visit: Yes Status: Acute Qualifiers: Atrial fibrillation type: paroxysmal Qualified Code(s): I48.0 - Paroxysmal atrial fibrillation (2) Chest pain Current Visit: No Status: Acute Qualifiers: Chest pain type: chest pain due to myocardial ischemia Ischemic chest pain type: unstable angina pectoris Qualified Code(s): I20.0 - Unstable angina (3) Hyperthyroidism Current Visit: Yes Status: Acute (4) HTN (hypertension) Current Visit: No Status: Chronic Qualifiers: Hypertension type: essential hypertension Qualified Code(s): I10 - Essential (primary) hypertension (5) CAD (coronary artery disease) Current Visit: Yes Status: Chronic Qualifiers: Coronary Disease-Associated Artery/Lesion type: [place] artery [place] vs. transplanted heart: [place] heart Associated angina: with unstable angina Qualified Code(s): I25.110 - Atherosclerotic heart disease of [place] coronary artery with unstable angina pectoris (6) Decubitus ulcer Current Visit: Yes Status: Chronic Qualifiers: Pressure ulcer location: sacral region Pressure ulcer stage: stage 3 Qualified Code(s): L89.153 - Pressure ulcer of sacral region, stage 3 - Constitutional Vitals: Temp Pulse Resp BP Pulse Ox 97.9 F 56 16 141/68 94 04/08/17 15:43 04/08/17 15:43 04/08/17 15:43 04/08/17 15:43 04/08/17 15:43 Internal Medicine: Result - Labs CBC & Chem 7: 04/08/17 04:52 04/08/17 04:52 Labs: Short CBC 04/08/17 Range/Units 04:52 WBC 4.0 L (4.3-11.1) K/mcL Hgb 9.0 L (11.5-15.4) g/dL Hct 29.7 L (35.3-44.9) % Plt Count 155 (140-400) K/mcL BMP 04/08/17 04:52 Sodium 141 Potassium 4.3 Chloride 108 Carbon Dioxide 25 BUN 16 Creatinine 0.46 L Glucose 101 H Calcium 8.6 - ABG Interpretation ABG results: PT/INR, D-dimer PT 13.9 Seconds (9.4-12.1) H 04/06/17 10:41 - Attending Attestation I examined this patient and my medical decision-making was reviewed with the Resident Physician on 04/08/17. I agree with the documented findings, disposition and treatment plan as described except to the extent set forth below. Ms. Mcdaniels is currently admitted for rapid a fib and hyperthyroidism. She is moderate to high risk due to potential worsening cardiac status. Ms. Mcdaniels is resting comfortably. She is now in normal sinus rhythm. Denies chest pain. No fever or chills. Exam Alert. Comfortable Heart reg Lungs clear I/P 1. Parox a fib - 2. Hyperthyroid - on PTU. Needs outpatient endo appt. Further diagnoses and plan as above.
[2017-04-08] MEDS: Ondansetron ODT 4 MG TAB.RAPDIS SL PRN (21:01)
[2017-04-09] MEDS: Insulin LISPRO 300 UNITS/3 ML VIAL SQ SCH ×3 (00:31→12:07)
[2017-04-09] MEDS: *HR* OxyCODONE ER (12 HR) 10 MG TABLET PO SCH ×2 (05:49→17:41)
[2017-04-09 07:06] VITALS: BP 147/71
[2017-04-09] MEDS: Pregabalin 50 MG CAPSULE PO SCH (08:17)
[2017-04-09] MEDS: APIXABAN 5 MG TABLET PO SCH (08:18)
[2017-04-09] MEDS: Venlafaxine XR (24 HR) 75 MG CAP.ER.24H PO SCH (08:18)
[2017-04-09] MEDS: amLODIPine 5 MG TABLET PO SCH (08:18)
[2017-04-09] MEDS: Isosorbide MONOnitrate (24 HR) 60 MG TAB.ER.24H PO SCH (08:18)
[2017-04-09] MEDS: Aspirin 81 MG TAB.CHEW PO SCH (08:18)
[2017-04-09] MEDS: Lisinopril 20 MG TABLET PO SCH (08:19)
[2017-04-09] MEDS: Metoprolol XL (24 HR) Succ 50 MG TAB.ER.24H PO SCH (08:19)
[2017-04-09] MEDS: Ondansetron ODT 4 MG TAB.RAPDIS SL PRN (08:19)
[2017-04-09] MEDS: Ranolazine 500 MG TAB.ER.12H PO SCH (08:19)
--- NOTE | 2017-04-09 10:25 | Cardiology Progress Note ---
Date of Encounter: 04/09/17 Time of Encounter: 10:23 Assessment and Plan (1) Chest pain Current Visit: No Status: Acute Pt has remained chest pain free. Chest pain thought to be secondary to her A-Fib/ectopy likely secondary to hyperthyroidism. Echo 10/2016 EF preserved. LHC December 2015 showed patent KOTHARI to LAD, Occluded SVG to PDA, and RCA had 80 -100% stenosis with collaterals. No further cardiac testing warranted at this time. Continue ASA, Statin, BB, nitrates. Cardiology signing off. Reconsult PRN. Follow-up as outpt in 2-3 weeks. Will coordinate. Qualifiers: Chest pain type: chest pain due to myocardial ischemia Ischemic chest pain type: unstable angina pectoris Qualified Code(s): I20.0 - Unstable angina (2) CAD (coronary artery disease) Current Visit: Yes Status: Chronic Patient with CAD, s/p CABG and stent placements. LHC in 12/2015 showed patent KOTHARI to LAD, Occluded SVG to PDA, and RCA had 80-100 % stenosis with collaterals. Patient also reportedly had a more recent cath at [facility]. Both recommended medical management. Continue ASA, Statin, BB, JOSE A-I, nitrates. Qualifiers: Coronary Disease-Associated Artery/Lesion type: [place] artery [place] vs. transplanted heart: [place] heart Associated angina: with unstable angina Qualified Code(s): I25.110 - Atherosclerotic heart disease of [place] coronary artery with unstable angina pectoris (3) Atrial fibrillation with RVR Current Visit: Yes Status: Resolved Known PAF in setting of hyperthyroidism. Now SR. Anticoagulated on Eliquis. Continue BB. Discussion w patient/family: The assessment and plan as outlined above was discussed with the patient and/or family members who expressed understanding and agreement. All questions were answered. Thank you for involving us in the care of your patient. Please call with any questions. I will discuss all the above with Dr. Marie and make changes as necessary. Subjective Principal diagnosis: Chest pain, A-Fib Interval history: Pt denies any chest pain overnight. Denies dyspnea or palpitations. Objective Vital Signs, Last 4 Hours Temp Pulse Resp BP Pulse Ox 04/09/17 08:13 98 04/09/17 07:00 98.2 F 56 17 147/71 98 Vital Signs Temp Pulse Resp BP Pulse Ox 04/09/17 08:13 98 04/09/17 07:00 98.2 F 56 17 147/71 98 04/09/17 03:49 98.2 F 51 16 136/72 94 04/08/17 21:25 98.2 F 57 16 157/59 96 04/08/17 21:10 94 04/08/17 15:43 97.9 F 56 16 141/68 94 04/08/17 11:33 98.4 F 57 16 118/60 96 Intake and Output 04/08/17 04/09/17 04/09/17 23:59 07:59 15:59 Intake Total 100 / 100 0 / 0 240 / 240 Balance 100 / 100 0 / 0 240 / 240 Intake: Oral 100 / 100 0 / 0 240 / 240 Other: Meal Breakfast Percent of Meal Consumed 50% # Voids 1 0 # Bowel Movements 1 Weight 55.9 kg Blood Glucose* 107 80 Patient Weight 04/09/17 23:59 Weight 55.9 kg General: Conversant, No Apparent Distress HEENT: Atraumatic, Normocephaly, Mucus Membranes Moist Neck: No JVD, Normal carotid pulses Cardiac: Reg Rate and Rhythm, Normal S1 and S2, No Murmur Lungs: Normal Breath Sounds, No Wheeze, Rales, Rhonchi Neuro: Alert and responsive, No focal deficits noted Abdomen: Soft, Non-Tender Skin: No rashes noted on visualized skin Musculoskeletal: No Chest Wall Tenderness Extremities: No Clubbing, No Cyanosis, No Edema, Normal Pulses Results 04/08/17 04:52 04/08/17 04:52 Active Medications Alprazolam (Xanax) 0.25 mg PO BID PRN; Protocol PRN Reason: anxiety Stop: 10/06/17 13:47 Amitriptyline HCl (Elavil) 25 mg PO HS PRN PRN Reason: Sleep Stop: 10/06/17 13:47 Amlodipine Besylate (Norvasc) 2.5 mg PO DAILY ROSA Stop: 10/06/17 14:01 Last Admin: 04/09/17 08:18 Dose: 2.5 mg Apixaban (Eliquis) 5 mg PO BID ROSA Stop: 10/06/17 14:01 Last Admin: 04/09/17 08:18 Dose: 5 mg Aspirin (Aspirin) 81 mg PO DAILY ROSA Stop: 10/06/17 14:01 Last Admin: 04/09/17 08:18 Dose: 81 mg Collagenase (Santyl) 1 appl TP DAILY ROSA PRN Reason: Protocol Stop: 10/06/17 15:46 Last Admin: 04/08/17 08:48 Dose: 1 appl Dextrose/Water (Dextrose 50% (Syg)) 25 ml IVP AD PRN PRN Reason: Hypoglycemia Stop: 10/06/17 13:56 Glucagon (Glucagen) 1 mg IM ONCE PRN PRN Reason: Hypoglycemia Stop: 10/06/17 13:56 Glucose (Gluctose) 15 gm PO ONCE PRN PRN Reason: Hypoglycemia Stop: 10/06/17 13:56 Glucose (Gluctose) 30 gm PO ONCE PRN PRN Reason: Hypoglycemia Stop: 10/06/17 13:56 Dextrose (Dextrose 5%) 1,000 mls @ 100 mls/hr IVC .Q10H PRN PRN Reason: HYPOGLYCEMIA Stop: 10/06/17 13:56 Insulin Human Lispro (Humalog) 0 units SQ HS ROSA PRN Reason: Protocol Stop: 10/06/17 21:01 Last Admin: 04/09/17 00:31 Dose: Not Given Insulin Human Lispro (Humalog) 0 units SQ TIDAC [facility] PRN Reason: Protocol Stop: 10/06/17 16:31 Last Admin: 04/09/17 08:14 Dose: Not Given Isosorbide Mononitrate (Imdur) 120 mg PO DAILY [facility] Stop: 10/06/17 14:01 Last Admin: 04/09/17 08:18 Dose: 120 mg Lisinopril (Zestril) 40 mg PO DAILY [facility] Stop: 10/06/17 14:01 Last Admin: 04/09/17 08:19 Dose: 40 mg Metoprolol Succinate (Toprol Xl) 100 mg PO DAILY [facility] Stop: 10/06/17 14:01 Last Admin: 04/09/17 08:19 Dose: 100 mg Naloxone HCl (Narcan) 0.4 mg IVP Q2MIN PRN PRN Reason: Opioid Reversal Stop: 10/06/17 13:38 Nitroglycerin (Nitroglycerin) 0.4 mg SL Q5M PRN PRN Reason: Chest Pain Stop: 10/06/17 13:47 Last Admin: 04/06/17 22:58 Dose: 0.4 mg Omeprazole (Prilosec) 20 mg PO DAILY [facility] Stop: 10/07/17 09:01 Last Admin: 04/09/17 08:19 Dose: 20 mg Ondansetron HCl (Zofran Odt) 4 mg SL Q8HR PRN PRN Reason: Nausea And Vomiting Stop: 10/06/17 13:38 Last Admin: 04/09/17 08:19 Dose: 4 mg Oxycodone HCl (Oxycontin) 10 mg PO Q12HR ROSA Stop: 10/06/17 18:01 Last Admin: 04/09/17 05:49 Dose: 10 mg Oxycodone/Acetaminophen (Percocet 10/325) 1 each PO Q6H PRN PRN Reason: Moderate Pain Stop: 10/06/17 13:47 Last Admin: 04/08/17 21:01 Dose: 1 each Paroxetine HCl (Paxil) 20 mg PO DAILY ROSA PRN Reason: Protocol Stop: 10/07/17 09:01 Last Admin: 04/09/17 08:19 Dose: 20 mg Pregabalin (Lyrica) 100 mg PO BID [facility] Stop: 10/06/17 21:01 Last Admin: 04/09/17 08:17 Dose: 100 mg Propylthiouracil (Propylthiouracil) 50 mg PO TID [facility] Stop: 10/06/17 13:43 Last Admin: 04/09/17 08:17 Dose: 50 mg Ranolazine (Ranexa) 500 mg PO BID [facility] Stop: 10/07/17 13:46 Last Admin: 04/09/17 08:19 Dose: 500 mg Simvastatin (Zocor) 20 mg PO HS [facility] PRN Reason: Protocol Stop: 10/06/17 21:01 Last Admin: 04/08/17 21:01 Dose: 20 mg Venlafaxine HCl (Effexor Xr) 75 mg PO DAILY [facility] Stop: 10/07/17 09:01 Last Admin: 04/09/17 08:18 Dose: 75 mg - Imaging and Cardiology Echo: report reviewed - EKG Interpretation EKG results cardiology: other (24 hour tele AVG HR 55, currently SR) Consult Discharge Plan - Plan Referrals: Matthias Polo MD [Primary Care Provider] -
[2017-04-09] MEDS: *HR* OxyCODONE/APAP 10/325 TABLET PO PRN (10:49)
--- NOTE | 2017-04-09 13:39 | Discharge Summary ---
Date of Encounter: 04/09/17 Time of Encounter: 13:36 - Discharge Diagnosis (1) Chest pain Priority: Primary Status: Acute Qualifiers: Chest pain type: chest pain due to myocardial ischemia Ischemic chest pain type: unstable angina pectoris Qualified Code(s): I20.0 - Unstable angina (2) Atrial fibrillation Priority: Primary Status: Acute Qualifiers: Atrial fibrillation type: paroxysmal Qualified Code(s): I48.0 - Paroxysmal atrial fibrillation (3) Hyperthyroidism Priority: Primary Status: Acute (4) HTN (hypertension) Priority: Secondary Status: Chronic Qualifiers: Hypertension type: essential hypertension Qualified Code(s): I10 - Essential (primary) hypertension (5) CAD (coronary artery disease) Priority: Secondary Status: Chronic Qualifiers: Coronary Disease-Associated Artery/Lesion type: [place] artery [place] vs. transplanted heart: [place] heart Associated angina: with unstable angina Qualified Code(s): I25.110 - Atherosclerotic heart disease of [place] coronary artery with unstable angina pectoris (6) Decubitus ulcer Priority: Secondary Status: Chronic Qualifiers: Pressure ulcer location: sacral region Pressure ulcer stage: stage 3 Qualified Code(s): L89.153 - Pressure ulcer of sacral region, stage 3 - Discharge Medications Prescriptions: Propylthiouracil 50 mg PO TID #90 tablet Home Medications: Ergocalciferol (VITAMIN D2) [Vitamin D2 (50,000 UNIT)] 50,000 unit PO DAVIS [History] Folic Acid 2 mg PO DAILY 01/11/16 [History] Isosorbide MONOnitrate [Isosorbide Mononitrate ER] 120 mg PO DAILY 01/11/16 [ History] Metoprolol XL (24 HR) Succ [Toprol Xl] 100 mg PO DAILY 01/11/16 [History] Multivitamin/Iron/Folic Acid [Centrum Complete Multivit Tab] 1 tab PO DAILY [History] Nitroglycerin [Nitrostat] 0.4 mg SL Q5M PRN 01/11/16 [History] Simvastatin [Zocor] 20 mg PO HS 01/11/16 [History] Venlafaxine HCl [Effexor Xr] 75 mg PO DAILY 01/11/16 [History] Vitamin E 1,000 units PO DAILY 01/11/16 [History] ALPRAZolam [Xanax 1 MG Tablet] 0.25 mg PO BID PRN 10/18/16 [History] Amitriptyline [Elavil] 25 - 50 mg PO HS PRN 10/18/16 [History] Oxycodone HCl/Acetaminophen [Percocet 10-325 mg Tablet] 1 tab PO Q6H PRN [History] Lisinopril [Zestril] 40 mg PO DAILY #0 10/21/16 [Rx] Apixaban [Eliquis] 5 mg PO BID 02/23/17 [History] Paroxetine HCl [Paxil] 20 mg PO DAILY 02/23/17 [History] OxyCODONE ER (12 HR) [OxyCONTIN] 10 mg PO Q12HR #60 tab.er.12h 03/01/17 [Rx] Pregabalin [Lyrica] 100 mg PO BID #0 03/04/17 [Rx] Amlodipine Besylate 2.5 mg PO DAILY 04/06/17 [History] Aspirin 81 mg PO DAILY 04/06/17 [History] Oxygen 2 l .ROUTE AD 04/06/17 [History] Pantoprazole Sodium [Protonix] 40 mg PO DAILY 04/06/17 [History] Collagenase Oint [Santyl] 1 appl TP DAILY tube 04/09/17 [Rx] Propylthiouracil 50 mg PO TID #90 tablet 04/09/17 [Rx] Allergies/Adverse Reactions: Allergies hydrocodone [From Vicodin] Allergy (Verified 02/23/17 14:36) Swelling of Lip/Tongue/Throat Procedures/tests Complete & Pending: Procedures Performed prior 72 hours Category Date Time Status ECG 12 lead ECG [ECG] AM 0600 Y 04/07/17 06:00 Ordered ECG 12 lead ECG [ECG] Routine Y 04/06/17 22:46 Completed Date of admission: 04/06/17 13:37 Primary care physician: Matthias Polo MD Consults: 04/06/17 13:57 Consult to Wound Care [CONS] Routine Reason for Consult: unstageable ulcer on sacrum Call Completed: No 04/09/17 12:26 PT [Consult to Physical Therapy] [CONS] Routine Comment: Evaluate, develop and implement POC Reason for Consult: Discharge planning. To be discharged today. ? [facility]. Fell in room. 04/09/17 12:27 OT [Consult to Occupational Therapy] [CONS] Routine Comment: Evaluate, develop and implement POC Reason for Consult: Discharge planning - ? C. Pt to d/c today (fell in room). Discharging clinician: Dagoberto Mcdaniels Anticipated date of discharge: 04/09/17 - Patient Status Disposition: Home Health Service Condition: Good Functional capacity at discharge: independent ambulation Overall status at discharge: patient is progressing back to baseline - Discharge Instructions Follow Up With: Matthias Polo MD [Primary Care Provider] - - Diet and Activity Activity: increase activity as tolerated Diet: low salt diet Hospital course: Ms. Mcdaniels is a 61 year old female with hx of CAD (medical management), parox a fib and hyperthyroidism. She had been hospitalized about 5 weeks ago with new a fib and found to be hyperthyroid ([facility]). She had been started on Methimazole and her platelets dropped significantly. Methimazole was held and she was discharged to rehab and subsequently home. She presented back to ED on 04/06 with chest pain and rapid atrial fibrillation. She was on no medications for her thyroid and had not seen endocrine. She was subsequently admitted. Ms. Mcdaniels was admitted to [facility]. She was evaluated by cardiology and she returned to [facility]. She had no further chest pain when rate was improved. She was started on PTU and tolerated it well. Referral was sent to [facility] for endocrine appt and she will be contacted by them. Prior to discharge she slid out of bed when she was trying to reach her slippers. No injury noted but she was having difficulty getting back up. PT/ OT eval ordered but patient will not go to SNF. Homecare referral sent. On 04/09 she was afebrile with stable vitals. She was discharged at that time. - Time Spent with Patient Total time spent providing and/or coordinating discharge services: 40min - Constitutional Vitals: Temp Pulse Resp BP Pulse Ox 98.2 F 56 17 147/71 98 04/09/17 07:00 04/09/17 07:00 04/09/17 07:00 04/09/17 07:00 04/09/17 08:13 General appearance: Present: A&O X 3, pleasant, no acute distress, loss of weight - Head Head exam: Present: normocephalic - Eye Eye exam: Present: conjuntiva pink - ENT ENT exam: Present: mucous membranes moist - Respiratory Respiratory exam: Present: CTAB. Absent: rales, rhonchi, wheezes - Cardiovascular Cardiovascular exam: Present: RRR. Absent: tachycardia - GI/Abdominal GI/Abdominal exam: Present: soft. Absent: tenderness - Extremities Exam Extremities exam: Present: warm. Absent: pedal edema - Neurological Exam Neurological exam: Present: alert, oriented X3, no focal deficits - Skin Skin exam: Present: dry, warm. Absent: rash
--- NOTE | 2017-04-09 14:01 | Physician Discharge Referral ---
Home Health/Hosp Referral Info Transfer to: Home Health Attending Provider: Dagoberto Mcdaniels DO Provider in Charge Post Discharge: PCP - Diagnosis (1) Chest pain Priority: Primary Status: Acute (2) Atrial fibrillation Priority: Primary Status: Acute (3) Hyperthyroidism Priority: Primary Status: Acute (4) HTN (hypertension) Priority: Secondary Status: Chronic (5) CAD (coronary artery disease) Priority: Secondary Status: Chronic (6) Decubitus ulcer Priority: Secondary Status: Chronic - Respiratory Orders Oxygen / L per min (Maintain saturation greater than 90%) Smoking Cessation: Smoking cessation has been advised. For more information, call the [place] Tobacco Quit Line at 2-645-HMDB-NOW. - Dressing/Wound Care Site: Sacral decub - Type of Dressing/Treatments w/Frequency: See nursing orders. - Diet/Nutrition Diet/Nutrition Orders: No Added Salt (KVNG) - Activity Activity Orders: Up ad gabriel - Services Needed Following services are medically necessary services: Nursing, Physical Therapy, Occupational Therapy - Transfer Medications Prescriptions: Propylthiouracil 50 mg PO TID #90 tablet Home Medications: Ergocalciferol (VITAMIN D2) [Vitamin D2 (50,000 UNIT)] 50,000 unit PO DAVIS [History] Folic Acid 2 mg PO DAILY 01/11/16 [History] Isosorbide MONOnitrate [Isosorbide Mononitrate ER] 120 mg PO DAILY 01/11/16 [ History] Metoprolol XL (24 HR) Succ [Toprol Xl] 100 mg PO DAILY 01/11/16 [History] Multivitamin/Iron/Folic Acid [Centrum Complete Multivit Tab] 1 tab PO DAILY [History] Nitroglycerin [Nitrostat] 0.4 mg SL Q5M PRN 01/11/16 [History] Simvastatin [Zocor] 20 mg PO HS 01/11/16 [History] Venlafaxine HCl [Effexor Xr] 75 mg PO DAILY 01/11/16 [History] Vitamin E 1,000 units PO DAILY 01/11/16 [History] ALPRAZolam [Xanax 1 MG Tablet] 0.25 mg PO BID PRN 10/18/16 [History] Amitriptyline [Elavil] 25 - 50 mg PO HS PRN 10/18/16 [History] Oxycodone HCl/Acetaminophen [Percocet 10-325 mg Tablet] 1 tab PO Q6H PRN [History] Lisinopril [Zestril] 40 mg PO DAILY #0 10/21/16 [Rx] Apixaban [Eliquis] 5 mg PO BID 02/23/17 [History] Paroxetine HCl [Paxil] 20 mg PO DAILY 02/23/17 [History] OxyCODONE ER (12 HR) [OxyCONTIN] 10 mg PO Q12HR #60 tab.er.12h 03/01/17 [Rx] Pregabalin [Lyrica] 100 mg PO BID #0 03/04/17 [Rx] Amlodipine Besylate 2.5 mg PO DAILY 04/06/17 [History] Aspirin 81 mg PO DAILY 04/06/17 [History] Oxygen 2 l .ROUTE AD 04/06/17 [History] Pantoprazole Sodium [Protonix] 40 mg PO DAILY 04/06/17 [History] Collagenase Oint [Santyl] 1 appl TP DAILY tube 04/09/17 [Rx] Propylthiouracil 50 mg PO TID #90 tablet 04/09/17 [Rx] Allergies/Adverse Reactions: Allergies hydrocodone [From Vicodin] Allergy (Verified 02/23/17 14:36) Swelling of Lip/Tongue/Throat Certification: Further, I certify that my clinical findings support that this patient is homebound (i.e. absences from home require considerable and taxing effort and are for medical reasons or sabianism services or infrequently or short duration when for other reasons) because: Homebound Reason: Patient requires assistance of a person or device to safely leave home, Leaving home requires considerable and taxing effort due to condition Attestation: My signature below is to certify that this patient is under my care and that I, or nurse practitioner, or a physician's assistant corporation counsel working with me, has a face-to -face encounter with this patient.
--- NOTE | 2017-04-09 16:39 | Electrocardiograph Report ---
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
--- NOTE | 2017-04-09 16:42 | Electrocardiograph Report ---
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
== END 2017-04-09 19:00 | disposition home health service (06) | DRG 308 ==
LOC: 2NENU 10:27 → EMEROO 10:27 → 2NENU 14:16
PROVIDERS: ADMIT Nurse Practitioner Family; ATTEND Internal Medicine

== ENCOUNTER 2017-07-14 23:35 | Inpatient (IN) ==
[2017-07-15] MEDS ORDERED: Ipratropium/Albuterol Neb 3 ML IH ONE ×2 (00:20→00:26)
--- NOTE | 2017-07-15 00:27 | Emergency Department Note ---
Disposition Clinical Impression: Acute decompensated heart failure Chest pain Qualifiers: Chest pain type: unspecified Qualified Code(s): R07.9 - Chest pain, unspecified Disposition: Admitted As Inpatient Condition: Fair Time of Disposition: 02:55 General Adult HPI - General Chief complaint: ED Chest Pain Stated complaint: chest pain/NOAH Time Seen by Provider: 07/15/17 00:04 Source: patient Limitations: no limitations Nursing Notes Reviewed: Yes Vital Signs Reviewed: Yes - History of Present Illness HPI Narrative: Patient emergency department complaining of chest pain and dyspnea on exertion. Patient states she feels short of breath. States she cannot get up and do anything. Dry cough. No fever. Chest pain left-sided into her neck and back. History of coronary disease with bypass and multiple stents. She also has CHF. She has had increased swelling in her legs over several days. Pain Scale: 8 - Related Data Home Medications Medication Instructions Recorded Confirmed Ergocalciferol (VITAMIN D2) 50,000 unit PO DAVIS 01/11/16 04/06/17 [Vitamin D2 (50,000 UNIT)] Folic Acid 2 mg PO DAILY 01/11/16 04/06/17 Isosorbide MONOnitrate [Isosorbide 120 mg PO DAILY 01/11/16 04/06/17 Mononitrate ER] Metoprolol XL (24 HR) Succ [Toprol 100 mg PO DAILY 01/11/16 04/06/17 Xl] Multivitamin/Iron/Folic Acid 1 tab PO DAILY 01/11/16 04/06/17 [Centrum Complete Multivit Tab] Nitroglycerin [Nitrostat] 0.4 mg SL Q5M PRN 01/11/16 04/06/17 Simvastatin [Zocor] 20 mg PO HS 01/11/16 04/06/17 Venlafaxine HCl [Effexor Xr] 75 mg PO DAILY 01/11/16 04/06/17 Vitamin E 1,000 units PO DAILY 01/11/16 04/06/17 ALPRAZolam [Xanax 1 MG Tablet] 0.25 mg PO BID PRN 10/18/16 04/06/17 Amitriptyline [Elavil] 25 - 50 mg PO HS PRN 10/18/16 04/06/17 Oxycodone HCl/Acetaminophen 1 tab PO Q6H PRN 10/18/16 04/06/17 [Percocet 10-325 mg Tablet] Apixaban [Eliquis] 5 mg PO BID 02/23/17 04/06/17 Paroxetine HCl [Paxil] 20 mg PO DAILY 02/23/17 04/06/17 Amlodipine Besylate 2.5 mg PO DAILY 04/06/17 04/06/17 Aspirin 81 mg PO DAILY 04/06/17 04/06/17 Oxygen 2 l .ROUTE AD 04/06/17 04/06/17 Pantoprazole Sodium [Protonix] 40 mg PO DAILY 04/06/17 04/06/17 Previous Rx's Medication Instructions Recorded Lisinopril [Zestril] 40 mg PO DAILY #0 10/21/16 OxyCODONE ER (12 HR) [OxyCONTIN] 10 mg PO Q12HR #60 tab.er.12h 03/01/17 Pregabalin [Lyrica] 100 mg PO BID #0 03/04/17 Collagenase Oint [Santyl] 1 appl TP DAILY tube 04/09/17 Propylthiouracil 50 mg PO TID #90 tablet 04/09/17 Allergies Allergy/AdvReac Type Severity Reaction Status Date / Time hydrocodone [From Vicodin] Allergy Swelling Verified 02/23/17 14:36 of Lip/Tongue/Throat All systems ED: reviewed and negative except as stated. Constitutional: Denies: fever Cardiovascular: Reports: chest pain, dyspnea on exertion. Denies: palpitations , orthopnea Respiratory: Reports: dyspnea. Denies: cough, wheezes ( ) Past Medical History - Past Medical History Attestation: Yes The following information was validated with the patient. Source: patient Medical history: Reports: atrial fibrillation, coronary artery disease, hyperlipidemia, hypertension, osteoporosis, other Surgical history: Reports: cholecystectomy, coronary bypass (CABG), hysterectomy Psychiatric history: Reports: depression - Social History Smoking Status: Never smoker Smokeless Tobacco Status: No Alcohol use: Reports: none Drug use: Reports: none Physical Exam Patient awake and alert. Mildly tachypneic. Visibly dyspneic. Decreased air exchange. No wheezes no rales. - General Limitations: no limitations General appearance: alert, in no apparent distress - Head Head exam: atraumatic, normocephalic, normal inspection - Eye Eye exam: Present: normal appearance, PERRL, EOMI - ENT ENT exam: normal exam, normal oropharynx - Neck Neck exam: Present: normal inspection - Chest Chest inspection: Present: normal inspection - Respiratory Respiratory exam: Present: accessory muscle use. Absent: respiratory distress, wheezes, stridor - Cardiovascular Cardiovascular exam: Present: tachycardia, irregular rhythm - Abdominal Exam Abdominal exam: Present: soft, Non-Tender - Neurological Exam Neurological exam: Present: alert, oriented X3, CN II-XII intact - Psychiatric Psychiatric exam: Present: normal affect, normal mood - Skin Skin exam: Present: warm, dry, intact Course - Consultations Consultation #1: Dr Donnelly accepts or admission Time: 02:42 Vital Signs Temperature 97.5 F L 07/14/17 23:36 Pulse Rate 107 07/14/17 23:36 Respiratory Rate 20 07/14/17 23:36 Blood Pressure 123/63 07/14/17 23:36 O2 Sat by Pulse Oximetry 96 07/14/17 23:36 Temperature 97.5 F L 07/14/17 23:36 Pulse Rate 94 07/15/17 02:15 Respiratory Rate 26 07/15/17 02:15 Blood Pressure 137/65 07/15/17 02:15 O2 Sat by Pulse Oximetry 100 07/15/17 02:15 Oxygen Delivery Oxygen Delivery Nasal Cannula Medical Decision Making - [facility] Narrative Medical decision making narrative: Patient with pleural effusions pulmonary edema. Decompensated heart failure. Troponin negative. Aspirin given. Afebrile control below 100. Admitted to hospitalists. - Medical Records Medical records reviewed: Yes I reviewed the patient's medical records. - Lab Data Lab results reviewed: Yes I reviewed the patient's lab results. Result diagrams: 07/15/17 00:58 07/15/17 00:58 Lab Results 07/15/17 07/15/17 07/15/17 Range/Units 00:58 00:58 00:58 WBC 5.6 (4.3-11.1) K/mcL RBC 3.37 L (3.82-4.97) M/mcL Hgb 8.6 L (11.5-15.4) g/dL Hct 28.6 L (35.3-44.9) % MCV 84.9 (83.0-100.0) fL MCH 25.5 L (28.0-33.3) pg MCHC 30.1 L (31.6-35.5) g/dL RDW 16.4 H (11.5-14.5) % Plt Count 183 (140-400) K/mcL MPV 11.4 (9.4-12.4) fL Immature Gran % 0.2 (0-4) % Seg Neutrophils % 66.6 % Lymphocytes % 26.3 % Monocytes % 6.3 % Eosinophils % 0.4 % Basophils % 0.2 % Neutrophils # 3.7 (1.6-8.9) K/mcL Lymphocytes # 1.5 (0.6-4.6) K/mcL Monocytes # 0.4 (0.0-1.3) K/mcL Eosinophils # 0.0 (0.0-0.6) K/mcL Basophils # 0.0 (0.0-0.2) K/mcL PT 15.5 H (9.4-12.1) Seconds INR 1.4 APTT 31.0 (26.0-36.0) Seconds Sodium (136-145) mEq/L Potassium (3.5-4.5) mEq/L Chloride (98-109) mEq/L Carbon Dioxide (19-29) mEq/L BUN (7-20) mg/dL Creatinine (0.57-1.11) mg/dL Est GFR ( Amer) (> 60) Est GFR (Non-Af Amer) (> 60) BUN/Creatinine Ratio (6-26) Glucose (70-99) mg/dL Calculated Osmolality (280-300) Calcium (8.6-10.8) mg/dL Troponin I (0-0.03) ng/mL B-Natriuretic Peptide 1659 H (0-100) pg/mL 07/15/17 07/15/17 Range/Units 00:58 00:58 WBC (4.3-11.1) K/mcL RBC (3.82-4.97) M/mcL Hgb (11.5-15.4) g/dL Hct (35.3-44.9) % MCV (83.0-100.0) fL MCH (28.0-33.3) pg MCHC (31.6-35.5) g/dL RDW (11.5-14.5) % Plt Count (140-400) K/mcL MPV (9.4-12.4) fL Immature Gran % (0-4) % Seg Neutrophils % % Lymphocytes % % Monocytes % % Eosinophils % % Basophils % % Neutrophils # (1.6-8.9) K/mcL Lymphocytes # (0.6-4.6) K/mcL Monocytes # (0.0-1.3) K/mcL Eosinophils # (0.0-0.6) K/mcL Basophils # (0.0-0.2) K/mcL PT (9.4-12.1) Seconds INR APTT (26.0-36.0) Seconds Sodium 141 (136-145) mEq/L Potassium 3.5 (3.5-4.5) mEq/L Chloride 106 (98-109) mEq/L Carbon Dioxide 27 (19-29) mEq/L BUN 12 (7-20) mg/dL Creatinine 0.52 L (0.57-1.11) mg/dL Est GFR ( Amer) > 60 (> 60) Est GFR (Non-Af Amer) > 60 (> 60) BUN/Creatinine Ratio 23 (6-26) Glucose 105 H (70-99) mg/dL Calculated Osmolality 292 (280-300) Calcium 8.7 (8.6-10.8) mg/dL Troponin I 0.00 (0-0.03) ng/mL B-Natriuretic Peptide (0-100) pg/mL - Radiology Data Radiology results reviewed: Yes I reviewed the patient's radiology results. Chest X-Ray 07/15/17 00:21 IMPRESSION: Increased moderate bilateral pleural effusions with associated atelectasis or consolidation. Additional increased vascular congestion/ interstitial prominence. Overall findings may represent sequela of pulmonary edema in the appropriate clinical setting. D/ / Gage Kaiser MD / Gage Kaiser MD Interpreting Provider: Gage Kaiser MD - EKG Data EKG #1 EKG attestation: Yes I reviewed and interpreted this EKG. EKG results narrative: A. fib with RVR 103. Mild diffuse ST depressions. Normal axis. Normal intervals. QT 332 QTC 391 Critical Care Time Critical Care Time: Yes Total Critical Care Time: 35 Attestation: I exam extent set forth below. Critical care performed: Time is exclusive of separately billable procedures. Time includes: direct patient care, patient reassessment, coordination of patient care, interpretation of data (laboratory data, radiology data, and respiratory data), review of patient's medical records, medical consultation and documentation of patient care. Procedures included in critical care time: Procedures excluded from critical care time:
[2017-07-15 01:07] LABS: Basophils % 0.2 %; Eosinophils % 0.4 %; Hematocrit 28.6 % (35.3-44.9); Hemoglobin 8.6 g/dL (11.5-15.4); Immature Granulocytes % 0.2 % (0-4); Lymphocytes # 1.5 K/mcL (0.6-4.6); Lymphocytes % 26.3 %; Mean Corpuscular HGB Conc 30.1 g/dL (31.6-35.5); Mean Corpuscular Hemoglobin 25.5 pg (28.0-33.3); Mean Corpuscular Volume 84.9 fL (83.0-100.0); Mean Platelet Volume 11.4 fL (9.4-12.4); Monocytes # 0.4 K/mcL (0.0-1.3); Monocytes % 6.3 %; Neutrophils # 3.7 K/mcL (1.6-8.9); Platelet Count 183 K/mcL (140-400); Red Blood Count 3.37 M/mcL (3.82-4.97); Red Cell Distribution Width 16.4 % (11.5-14.5); Segmented Neutrophils % 66.6 %
[2017-07-15 01:11] LABS: INR 1.4; Prothrombin Time 15.5 Seconds (9.4-12.1)
[2017-07-15 01:31] LABS: BUN/Creatinine Ratio 23 (6-26); Blood Urea Nitrogen 12 mg/dL (7-20); Calcium 8.7 mg/dL (8.6-10.8); Carbon Dioxide 27 mEq/L (19-29); Chloride 106 mEq/L (98-109); Glucose 105 mg/dL (70-99); Osmolality,Calculated 292 (280-300); Potassium 3.5 mEq/L (3.5-4.5); Sodium 141 mEq/L (136-145); eGFR For African Americans > 60 (> 60); eGFR For Non-African Americans > 60 (> 60)
[2017-07-15] MEDS ORDERED: Furosemide 40 MG/4 ML VIAL IVP ONE (02:30)
[2017-07-15] MEDS ORDERED: Aspirin 325 MG TABLET PO ONE (02:40)
--- NOTE | 2017-07-15 04:05 | Internal Med History&Physical ---
Date of Encounter: 07/15/17 Time of Encounter: 04:04 Assessment and Plan (1) Acute decompensated heart failure Current visit: Yes Status: Acute - TTE 10/2016: Normal EF - Cont Lasix 40 mg IV daily, may titrate up or down based on response (2) Chest pain Current visit: Yes Status: Acute Atypical. Patient is anxious as well, but has history of CKD. - Serial troponin/EKG, r/o ACS Qualifiers: Chest pain type: unspecified Qualified Code(s): R07.9 - Chest pain, unspecified (3) Atrial fibrillation Current visit: Yes Status: Acute Cont metoprolol, apixaban Qualifiers: Atrial fibrillation type: paroxysmal Qualified Code(s): I48.0 - Paroxysmal atrial fibrillation (4) CAD (coronary artery disease) Current visit: Yes Status: Chronic - Coronary angiogram 2016: KOTHARI-LAD patent, SVG-PDA occluded, RCA 80-100% occluded with collateral flow - Check serial troponin, r/o ACS - Cont ASA, statin, metoprolol, ImDur Qualifiers: Coronary Disease-Associated Artery/Lesion type: [place] artery [place] vs. transplanted heart: pala heart Associated angina: without angina Qualified Code(s): I25.10 - Atherosclerotic heart disease of pala coronary artery without angina pectoris (5) HTN (hypertension) Current visit: Yes Status: Chronic Cont above, and amlodipine Qualifiers: Hypertension type: essential hypertension Qualified Code(s): I10 - Essential (primary) hypertension (6) Diabetes Current visit: Yes Status: Acute Diabetic diet Qualifiers: Diabetes mellitus type: type 2 Diabetes mellitus complication status: with unspecified complications Diabetes mellitus usp insulin use: without usp use Qualified Code(s): E11.8 - Type 2 diabetes mellitus with unspecified complications (7) DVT prophylaxis Current visit: No Status: Acute heparin SuBQ Internal Medicine - H&P: HPI Chief complaint: dyspnea, chest pain Admitted From: Emergency Dept History of present illness: Ms. Mcdaniels is a 62 year old woman with HFpEF, CAD/CABG, HTN and p-afib who has presented with 1 week of progressive MITCHELL, leg swelling, weight gain and one day of sharp and dull chest pain radiating to left neck. She also has history of anxiety. Feels dizzy. Right ear hearing impairment. Cough. Abdominal pain. Diarrhea since January. "Rght leg goes out on me". Fever 102 degrees a day or two ago. A 10-point ROS is negative for headache, eye symptoms, flu like symptoms, nausea , vomiting, dysuria or other symptoms on a 10-point ROS. Past Med Surg Social Fam HX - Past Medical History Medical history: atrial fibrillation, coronary artery disease, hyperlipidemia, hypertension, osteoporosis, other Psychiatric history: depression - Past Surgical History Surgical History: cholecystectomy, coronary bypass (CABG), hysterectomy, other ( bowel surgery) - Social History Smoking Status: Never smoker Smokeless Tobacco Status: No Alcohol use: none Drug use: none - Family History Father Living Status: Hx Family Cardiac Disorders: Yes Mother Adopted: No Family Member Ethnicity: Non- Living Status: Hx Family Cardiac Disorders: Yes (VT) Hx Family Respiratory Disorders: No Hx Family Cancer: Yes (Bowel Cancer) Hx Family GI Disorders: Yes (Bowel Cancer) Hx Family Endocrine Disorder: Yes (DM) Hx Family Neuromuscular Disorders: No Hx Family Neurologic Disorders: No Hx Family HEENT Disorders: No Hx Family Autoimmune Disorders: No Internal Medicine - H&P: Meds Ergocalciferol (VITAMIN D2) [Vitamin D2 (50,000 UNIT)] 50,000 unit PO DAVIS [History] Folic Acid 2 mg PO DAILY 01/11/16 [History] Isosorbide MONOnitrate [Isosorbide Mononitrate ER] 120 mg PO DAILY 01/11/16 [ History] Metoprolol XL (24 HR) Succ [Toprol Xl] 100 mg PO DAILY 01/11/16 [History] Multivitamin/Iron/Folic Acid [Centrum Complete Multivit Tab] 1 tab PO DAILY [History] Nitroglycerin [Nitrostat] 0.4 mg SL Q5M PRN 01/11/16 [History] Simvastatin [Zocor] 20 mg PO HS 01/11/16 [History] Venlafaxine HCl [Effexor Xr] 75 mg PO DAILY 01/11/16 [History] Vitamin E 1,000 units PO DAILY 01/11/16 [History] ALPRAZolam [Xanax 1 MG Tablet] 0.25 mg PO BID PRN 10/18/16 [History] Amitriptyline [Elavil] 25 - 50 mg PO HS PRN 11/30/16 [History] Oxycodone HCl/Acetaminophen [Percocet 10-325 mg Tablet] 1 tab PO Q6H PRN [History] Lisinopril [Zestril] 40 mg PO DAILY #0 10/21/16 [Rx] Apixaban [Eliquis] 5 mg PO BID 02/23/17 [History] Paroxetine HCl [Paxil] 20 mg PO DAILY 02/23/17 [History] OxyCODONE ER (12 HR) [OxyCONTIN] 10 mg PO Q12HR #60 tab.er.12h 03/01/17 [Rx] Pregabalin [Lyrica] 100 mg PO BID #0 03/04/17 [Rx] Amlodipine Besylate 2.5 mg PO DAILY 04/06/17 [History] Aspirin mg PO DAILY 04/06/17 [History] Oxygen 2 l .ROUTE AD 04/06/17 [History] Propylthiouracil 50 mg PO TID #90 tablet 04/09/17 [Rx] 3 Allergy/AdvReac Type Severity Reaction Status Date / Time hydrocodone [From Vicodin] Allergy Swelling Verified 02/23/17 14:36 of Lip/Tongue/Throat All Systems PM: A 10-system review of systems was performed and is negative for pertinent findings except as documented above in the HPI. - Constitutional Vitals: Temp Pulse Resp BP Pulse Ox 97.8 F 96 20 122/65 100 07/15/17 03:36 07/15/17 03:36 07/15/17 03:36 07/15/17 03:36 07/15/17 03:36 General appearance: Present: cachectic, mild distress, A&O X 3, pleasant - Head Head exam: Present: atraumatic, normal inspection - Eye Eye exam: Present: normal appearance, PERRL, sclera anicteric. Absent: scleral icterus - ENT ENT exam: Present: mucous membranes dry, normal exam - Neck Neck exam general surgery: Present: supple. Absent: nuchal rigidity - Respiratory Respiratory exam: Present: decreased breath sounds, rales. Absent: accessory muscle use, respiratory distress, rhonchi, wheezes - Cardiovascular Cardiovascular exam: Present: JVD, +S1, +S2, systolic murmur - GI/Abdominal GI/Abdominal exam: Present: normal bowel sounds, soft. Absent: guarding, rebound, rigid - Extremities Exam Extremities exam: Present: pedal edema (1-2+ up to thighs). Absent: tenderness - Back Exam Back exam: Absent: CVA tenderness (L), CVA tenderness (R) - Neurological Exam Neurological exam: Present: alert, oriented X3, no focal deficits. Absent: facial droop - Psychiatric Psychiatric exam: Present: anxious - Skin Skin exam: Absent: erythema, rash Internal Med - H&P Results - Labs CBC & Chem 7: 07/15/17 00:58 07/15/17 00:58
[2017-07-15] MEDS ORDERED: Naloxone 0.4 MG/ML INJ IVP PRN (04:50)
[2017-07-15] MEDS ORDERED: Acetaminophen 325 MG TABLET PO PRN (04:50)
[2017-07-15] MEDS ORDERED: ALPRAZolam 0.25 MG TABLET PO PRN (04:56)
[2017-07-15] MEDS ORDERED: Nitroglycerin 0.4 MG TAB.SUBL SL PRN (04:56)
[2017-07-15] MEDS: *HR* OxyCODONE ER (12 HR) 10 MG TABLET PO SCH ×2 (05:55→17:07)
[2017-07-15] MEDS: APIXABAN 5 MG TABLET PO SCH ×2 (07:51→20:24)
[2017-07-15] MEDS: Pregabalin 50 MG CAPSULE PO SCH ×2 (07:52→20:25)
[2017-07-15] MEDS: Lisinopril 20 MG TABLET PO SCH (07:52)
[2017-07-15] MEDS: amLODIPine 5 MG TABLET PO SCH (07:52)
[2017-07-15] MEDS: Isosorbide MONOnitrate (24 HR) 60 MG TAB.ER.24H PO SCH (07:52)
[2017-07-15] MEDS: Metoprolol XL (24 HR) Succ 50 MG TAB.ER.24H PO SCH (07:52)
[2017-07-15 08:55] LABS: BUN/Creatinine Ratio 20 (6-26); Blood Urea Nitrogen 9 mg/dL (7-20); Calcium 8.7 mg/dL (8.6-10.8); Carbon Dioxide 30 mEq/L (19-29); Chloride 105 mEq/L (98-109); Glucose 85 mg/dL (70-99); Magnesium 1.6 mg/dL (1.6-2.6); Osmolality,Calculated 294 (280-300); Sodium 143 mEq/L (136-145); eGFR For African Americans > 60 (> 60); eGFR For Non-African Americans > 60 (> 60)
[2017-07-15] MEDS ORDERED: Furosemide 40 MG/4 ML VIAL IVP SCH (09:00)
[2017-07-15] MEDS: *HR* OxyCODONE/APAP 10/325 TABLET PO PRN ×2 (10:41→20:30)
--- NOTE | 2017-07-15 12:44 | Cardiology Consult Note ---
Date of Encounter: 07/15/17 Time of Encounter: 12:00 Assessment and Plan (1) Diastolic congestive heart failure, NYHA class 3 Current Visit: Yes Status: Suspected Per cardiology: -Suspect diastolic CHF. -Echo 10/2016 with LVEF 60%, mild AR, all powell with normal motion. -Significant volume overload. -Reports 20 pound weight gain in the past couple of months. -On lasix 40mg IV BID per primary service. -CHF educated reinforced to patient. -Net negative 2100ml since admission. -BNP 1659. -Strict i/os, daily weight, fluid restriction. -Will check limited echo Qualifiers: Congestive heart failure chronicity: unspecified congestive heart failure chronicity Qualified Code(s): I50.30 - Unspecified diastolic (congestive) heart failure (2) CAD (coronary artery disease) Current Visit: Yes Status: Chronic Per cardiology: -KNown CAD with CABG x2. -[facility] 01/12/2016: * Left Main Coronary Artery The LMCA is angiographically free of disease. * Left Anterior Descending There is a 100% stenosis in the Proximal LAD. The lesion has a KIRT flow of 0. * Circumflex The Circumflex is angiographically free of significant disease. The 1st Marginal is angiographically free of significant disease. * Right Coronary Artery There is a 80% stenosis in the Proximal RCA. The lesion has a KIRT flow of 3 and has collaterals which feed from left to right. There is a 100% stenosis in the Distal RCA. The lesion has a KIRT flow of 0. Additional Findings: Grafts * The left internal mammary graft to the Mid LAD is patent. KIRT flow is 3. * The saphenous vein graft to PDA is occluded. -On statin, beta delfino, beta delfino, imdur. -Admits to chest pain that is reproduceable with palpation. -ECG with atrial fibrillation. -Troponins negative x3. -Will add asa. -Will continue to monitor. Qualifiers: Coronary Disease-Associated Artery/Lesion type: unspecified vessel or lesion type [place] vs. transplanted heart: [place] heart Associated angina: without angina Qualified Code(s): I25.10 - Atherosclerotic heart disease of [place] coronary artery without angina pectoris (3) Atypical chest pain Current Visit: Yes Status: Acute Per cardiology: -Reports chest pain with movement and palpation. -ECG with no ischemic changes. -Chest pain reproduceable. -Denies current chest pain. -Troponins negative x3. -Will continue to monitor. (4) Atrial fibrillation Current Visit: Yes Status: Acute Per cardiology: -KNown atrial fibrillation. -Average HR 88 atrial fibrillation. -On beta blcoker and eliquis. -Denies bleeding or blood loss. -Will continue to monitor, Qualifiers: Atrial fibrillation type: paroxysmal Qualified Code(s): I48.0 - Paroxysmal atrial fibrillation Discussion w patient/family: The assessment and plan as outlined above was discussed with the patient who expressed understanding and agreement. All questions were answered. Thank you for involving us in the care of your patient. Please call with any questions. Discussed and reviewed with . History of Present Illness Consult date: 07/15/17 Requesting physician: Collins Devlin Consult reason: chf exacerbation Chief complaint: shortness of breath History of present illness: Ms. Mcdaniels is a 62 year old female with a relevant past medical history of CAD s /p CABG x2 and stenting, rheumatic fever, hyperlipidemia, chronic angina, DM, OR , HTN, depression, atrial fibrillation, carotid stenosis, reported CHF. Patient presented to [facility] with complaints of worsening shortness of breath and edema. Pateint states over the last couple of months, she has gained 20 pounds. Patient reports worsening edema and worsening shortness of breath. Patient reports chest pain that is about baseline and worsens with movement and palpation. Past Med Surg Social Fam HX - Past Medical History Attestation: Yes The following information was validated with the patient. Source: patient, old records reviewed Medical history: atrial fibrillation, coronary artery disease, hyperlipidemia, hypertension, osteoporosis, other Psychiatric history: depression - Past Surgical History Surgical History: cholecystectomy, coronary bypass (CABG), hysterectomy, other ( bowel surgery) - Social History Smoking Status: Never smoker Smokeless Tobacco Status: No Alcohol use: none Drug use: none - Family History Father Living Status: Hx Family Cardiac Disorders: Yes Mother Adopted: No Family Member Ethnicity: Non- Living Status: Hx Family Cardiac Disorders: Yes (OR) Hx Family Respiratory Disorders: No Hx Family Cancer: Yes (Bowel Cancer) Hx Family GI Disorders: Yes (Bowel Cancer) Hx Family Endocrine Disorder: Yes (DM) Hx Family Neuromuscular Disorders: No Hx Family Neurologic Disorders: No Hx Family HEENT Disorders: No Hx Family Autoimmune Disorders: No Medications and Allergies RX: Ergocalciferol (VITAMIN D2) [Vitamin D2 (50,000 UNIT)] 50,000 unit PO DAVIS [History] RX: Folic Acid 2 mg PO DAILY 01/11/16 [History] RX: Isosorbide MONOnitrate [Isosorbide Mononitrate ER] 120 mg PO DAILY 01/11/16 [History] RX: Metoprolol XL (24 HR) Succ [Toprol Xl] 100 mg PO DAILY 01/11/16 [History] RX: Multivitamin/Iron/Folic Acid [Centrum Complete Multivit Tab] 1 tab PO DAILY 01/11/16 [History] RX: Nitroglycerin [Nitrostat] 0.4 mg SL Q5M PRN 01/11/16 [History] RX: Simvastatin [Zocor] 20 mg PO HS 01/11/16 [History] RX: Venlafaxine HCl [Effexor Xr] 75 mg PO DAILY 01/11/16 [History] RX: Vitamin E 1,000 units PO DAILY 01/11/16 [History] RX: ALPRAZolam [Xanax 1 MG Tablet] 0.25 mg PO BID PRN 10/18/16 [History] RX: Amitriptyline [Elavil] 25 - 50 mg PO HS PRN 10/18/16 [History] RX: Oxycodone HCl/Acetaminophen [Percocet 10-325 mg Tablet] 1 tab PO Q6H PRN [History] RX: Lisinopril [Zestril] 40 mg PO DAILY #0 10/21/16 [Rx] RX: Apixaban [Eliquis] 5 mg PO BID 02/23/17 [History] RX: Paroxetine HCl [Paxil] 20 mg PO DAILY 02/23/17 [History] RX: OxyCODONE ER (12 HR) [OxyCONTIN] 10 mg PO Q12HR #60 tab.er.12h 03/01/17 [Rx] RX: Pregabalin [Lyrica] 100 mg PO BID #0 03/04/17 [Rx] RX: Amlodipine Besylate 2.5 mg PO DAILY 04/06/17 [History] RX: Aspirin mg PO DAILY 04/06/17 [History] RX: Oxygen 2 l .ROUTE AD 04/06/17 [History] RX: Propylthiouracil 50 mg PO TID #90 tablet 04/09/17 [Rx] 3 Allergy/AdvReac Type Severity Reaction Status Date / Time hydrocodone [From Vicodin] Allergy Swelling Verified 02/23/17 14:36 of Lip/Tongue/Throat All Systems Review: A 10-system review of systems was performed and is negative for pertinent findings except as documented above in the HPI. - Cardiovascular Cardiovascular: as per HPI, chest pain at rest, dyspnea on exertion, irregular heart rhythm, leg edema, orthopnea Physical Examination Vital Signs, Last 4 Hours Temp Pulse Resp BP Pulse Ox 07/15/17 10:38 97.8 F 81 20 104/58 98 General: Conversant, No Apparent Distress HEENT: Atraumatic, Normocephaly, Mucus Membranes Moist Neck: No JVD, Normal carotid pulses Cardiac: Normal S1 and S2, No Murmur, Other (Irregularly irregular) Lungs: Normal Breath Sounds, No Wheeze, Rales, Rhonchi Neuro: Alert and responsive, No focal deficits noted Abdomen: Soft, Non-Tender Skin: No rashes noted on visualized skin Musculoskeletal: Other (CHest wall tender to palpation) Extremities: No Clubbing, No Cyanosis, Normal Pulses, Other (2+ bilateral lower extremity pitting edema. ) Results 07/15/17 00:58 07/15/17 08:16 Lab Results Impressions Chest X-Ray 07/15/17 00:21 IMPRESSION: Increased moderate bilateral pleural effusions with associated atelectasis or consolidation. Additional increased vascular congestion/interstitial prominence. Overall findings may represent sequela of pulmonary edema in the appropriate clinical setting. D/ / 07/15/2017 08:07:30 Gage Kaiser MD / [facility] Interpreting Provider: Gage Kaiser MD Active Medications Acetaminophen (Tylenol) 325 mg PO Q6HR PRN PRN Reason: Mild Pain (1-3) Stop: 01/14/18 04:51 Alprazolam (Xanax) 0.25 mg PO BID PRN; Protocol PRN Reason: anxiety Stop: 01/14/18 04:57 Amlodipine Besylate (Norvasc) 2.5 mg PO DAILY ROSA Stop: 01/14/18 09:01 Last Admin: 07/15/17 07:52 Dose: 2.5 mg Apixaban (Eliquis) 5 mg PO BID [facility] Stop: 01/14/18 09:01 Last Admin: 07/15/17 07:51 Dose: 5 mg Atorvastatin Calcium (Lipitor) 40 mg PO HS [facility] Stop: 01/14/18 21:01 Furosemide (Lasix) 40 mg IVP BIDDIURETIC ROSA Stop: 01/14/18 17:01 Isosorbide Mononitrate (Imdur) 120 mg PO DAILY [facility] Stop: 01/14/18 09:01 Last Admin: 07/15/17 07:52 Dose: 120 mg Lisinopril (Zestril) 40 mg PO DAILY [facility] Stop: 01/14/18 09:01 Last Admin: 07/15/17 07:52 Dose: 40 mg Metoprolol Succinate (Toprol Xl) 100 mg PO DAILY [facility] Stop: 01/14/18 09:01 Last Admin: 07/15/17 07:52 Dose: 100 mg Naloxone HCl (Narcan) 0.4 mg IVP Q2MIN PRN PRN Reason: Opioid Reversal Stop: 01/14/18 04:51 Nitroglycerin (Nitroglycerin) 0.4 mg SL Q5M PRN PRN Reason: Chest Pain Stop: 01/14/18 04:57 Oxycodone HCl (Oxycontin) 10 mg PO Q12HR [facility] Stop: 01/14/18 06:01 Last Admin: 07/15/17 05:55 Dose: 10 mg Oxycodone/Acetaminophen (Percocet 10/325) 1 each PO Q6HR PRN PRN Reason: Pain Stop: 01/14/18 10:27 Last Admin: 07/15/17 10:41 Dose: 1 each Paroxetine HCl (Paxil) 20 mg PO DAILY [facility] PRN Reason: Protocol Stop: 01/14/18 09:01 Last Admin: 07/15/17 07:52 Dose: 20 mg Pregabalin (Lyrica) 100 mg PO BID [facility] Stop: 01/14/18 09:01 Last Admin: 07/15/17 07:52 Dose: 100 mg Laboratory Tests 07/15/17 07/15/17 07/15/17 00:58 00:58 00:58 Hgb 8.6 L Potassium Creatinine 0.52 L Magnesium Troponin I B-Natriuretic Peptide 1659 H 0807/15/17 07/15/17 00:58 08:16 08:16 Hgb Potassium 3.0 L Creatinine Magnesium 1.6 Troponin I 0.00 0.02 B-Natriuretic Peptide - Imaging and Cardiology Chest Xray: report reviewed Echo: report reviewed Cardiac cath: report reviewed - EKG Interpretation EKG results cardiology: personally reviewed (ECG with atrial fibrillation, HR 103.), other (Telemetry reviewed with average HR 88, atrial fibrillation. Longest pause 1.3 seconds. PVCs and couplets noted.) Consult Discharge Plan - Plan Referrals: Alpa Lee, BEAM BUILDER [Primary Care Provider] -
--- NOTE | 2017-07-15 12:55 | Event Note ---
Date of Encounter: 07/15/17 Time of Encounter: 10:45 Patient seen and evaluated this morning. She was admitted early this morning due to CHF exacerbation. Currently, she states that her shortness of breath is better. She continues to report swelling in her legs. She reports a recent weight gain of around 25 pounds. On exam, patient is stable with his bilaterally. Bilateral 2+ pitting pedal edema present. Acute on chronic CHF-continue intravenous diuretics. Patient is requested cardiology consultation for establishing care. We will place cardiology consult. Continue Deejay inhibitor and beta delfino. Acute on chronic hypoxic respiratory failure-likely related to CHF. Will reevaluate need for oxygen after adequate diuresis.
[2017-07-15] MEDS: Furosemide 40 MG/4 ML VIAL IVP SCH (17:07)
[2017-07-16] MEDS: *HR* OxyCODONE ER (12 HR) 10 MG TABLET PO SCH ×2 (05:24→17:26)
[2017-07-16] MEDS: *HR* OxyCODONE/APAP 10/325 TABLET PO PRN ×3 (09:06→21:55)
[2017-07-16] MEDS: Furosemide 40 MG/4 ML VIAL IVP SCH ×2 (09:06→17:26)
[2017-07-16] MEDS: Metoprolol XL (24 HR) Succ 50 MG TAB.ER.24H PO SCH (09:06)
[2017-07-16] MEDS: amLODIPine 5 MG TABLET PO SCH (09:07)
[2017-07-16] MEDS: APIXABAN 5 MG TABLET PO SCH ×2 (09:07→20:11)
[2017-07-16] MEDS: Lisinopril 20 MG TABLET PO SCH (09:07)
[2017-07-16] MEDS: Isosorbide MONOnitrate (24 HR) 60 MG TAB.ER.24H PO SCH (09:07)
[2017-07-16] MEDS: Pregabalin 50 MG CAPSULE PO SCH ×2 (09:07→20:11)
[2017-07-16] MEDS: Aspirin Enteric Coated 81 MG Tablet PO SCH (09:07)
[2017-07-16 09:11] LABS: BUN/Creatinine Ratio 33 (6-26); Blood Urea Nitrogen 14 mg/dL (7-20); Carbon Dioxide 31 mEq/L (19-29); Chloride 105 mEq/L (98-109); Glucose 88 mg/dL (70-99); Osmolality,Calculated 298 (280-300); Potassium 3.4 mEq/L (3.5-4.5); Sodium 144 mEq/L (136-145); eGFR For African Americans > 60 (> 60); eGFR For Non-African Americans > 60 (> 60)
--- NOTE | 2017-07-16 09:58 | Electrocardiograph Report ---
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
--- NOTE | 2017-07-16 10:04 | Cardiology Progress Note ---
Date of Encounter: 07/16/17 Time of Encounter: 08:30 Assessment and Plan (1) Diastolic congestive heart failure, NYHA class 3 Current Visit: Yes Status: Suspected Per cardiology: -Suspect diastolic CHF. -Echo 10/2016 with LVEF 60%, mild AR, all powell with normal motion. -Echo this admission with LVEF 60%. -Significant volume overload on admission. -Reports 20 pound weight gain in the past couple of months. -On lasix 40mg IV BID per primary service. -CHF educated reinforced to patient. -Net negative 3500ml since admission. -BNP 1659 on admission. -Weight down to 53kg, from 54kg yesterday. -Strict i/os, daily weight, fluid restriction. -Stressed importance of cardiology follow up with patient. Patient states understanding and states she will follow up. -Recommend continuing IV diueresis until euvolmeic them changing to po prior to discharge. -Cardiology will sign off and will follow in outpatient setting. Follow up set. Qualifiers: Congestive heart failure chronicity: unspecified congestive heart failure chronicity Qualified Code(s): I50.30 - Unspecified diastolic (congestive) heart failure (2) CAD (coronary artery disease) Current Visit: Yes Status: Chronic Per cardiology: -KNown CAD with CABG x2. -[facility] 01/12/2016: * Left Main Coronary Artery The LMCA is angiographically free of disease. * Left Anterior Descending There is a 100% stenosis in the Proximal LAD. The lesion has a KIRT flow of 0. * Circumflex The Circumflex is angiographically free of significant disease. The 1st Marginal is angiographically free of significant disease. * Right Coronary Artery There is a 80% stenosis in the Proximal RCA. The lesion has a KIRT flow of 3 and has collaterals which feed from left to right. There is a 100% stenosis in the Distal RCA. The lesion has a KIRT flow of 0. Additional Findings: Grafts * The left internal mammary graft to the Mid LAD is patent. KIRT flow is 3. * The saphenous vein graft to PDA is occluded. -On statin, beta delfino, beta delfino, imdur, and asa. -Admits to chest pain that is reproduceable with palpation. -ECG with atrial fibrillation. -Troponins negative x3. -Cardiology will follow in outpatient setting. Qualifiers: Coronary Disease-Associated Artery/Lesion type: unspecified vessel or lesion type [place] vs. transplanted heart: [place] heart Associated angina: without angina Qualified Code(s): I25.10 - Atherosclerotic heart disease of [place] coronary artery without angina pectoris (3) Atypical chest pain Current Visit: Yes Status: Acute Per cardiology: -Reports chest pain with movement and palpation. -ECG with no ischemic changes. -Chest pain reproduceable. -Denies current chest pain or chest pain overnight. -Troponins negative x3. -Will continue to monitor in outpatient setting. (4) Atrial fibrillation Current Visit: Yes Status: Acute Per cardiology: -KNown atrial fibrillation. -Average HR 79, atrial fibrillation. -On beta blcoker and eliquis. -Denies bleeding or blood loss. -Will continue to monitor in outpatient setting. Qualifiers: Atrial fibrillation type: paroxysmal Qualified Code(s): I48.0 - Paroxysmal atrial fibrillation Discussion w patient/family: The assessment and plan as outlined above was discussed with the patient who expressed understanding and agreement. All questions were answered. Thank you for involving us in the care of your patient. Please call with any questions. Discussed and reviewed with . Subjective Principal diagnosis: diastolic CHF Interval history: Patient states breathing is much better. Patient states swelling is much better. Objective Vital Signs Temperature 97.5 F L 07/14/17 23:36 Pulse Rate 107 07/14/17 23:36 Respiratory Rate 20 07/14/17 23:36 Blood Pressure 123/63 07/14/17 23:36 O2 Sat by Pulse Oximetry 96 07/14/17 23:36 Temperature 98.0 F 07/16/17 03:20 Pulse Rate 75 07/16/17 03:20 Respiratory Rate 12 07/16/17 03:20 Blood Pressure 111/59 07/16/17 03:20 O2 Sat by Pulse Oximetry 96 07/16/17 03:20 Oxygen Delivery Oxygen Delivery Nasal Cannula General: Conversant, No Apparent Distress HEENT: Atraumatic, Normocephaly, Mucus Membranes Moist Neck: No JVD, Normal carotid pulses Cardiac: Normal S1 and S2, No Murmur, Other (Irregularly irregular ) Lungs: Normal Breath Sounds, No Wheeze, Rales, Rhonchi Neuro: Alert and responsive, No focal deficits noted Abdomen: Soft, Non-Tender Skin: No rashes noted on visualized skin Musculoskeletal: No Chest Wall Tenderness Extremities: No Clubbing, No Cyanosis, Normal Pulses, Other (Moderate bilateral lower extremity edema, non-pitting. ) Results 07/15/17 00:58 07/16/17 08:39 Lab Results Impressions Chest X-Ray 07/15/17 00:21 IMPRESSION: Increased moderate bilateral pleural effusions with associated atelectasis or consolidation. Additional increased vascular congestion/interstitial prominence. Overall findings may represent sequela of pulmonary edema in the appropriate clinical setting. D/ / 07/15/2017 08:07:30 Gage Kaiser MD / [email or web address] Interpreting Provider: Gage Kaiser MD Active Medications Acetaminophen (Tylenol) 325 mg PO Q6HR PRN PRN Reason: Mild Pain (1-3) Stop: 01/14/18 04:51 Alprazolam (Xanax) 0.25 mg PO BID PRN; Protocol PRN Reason: anxiety Stop: 01/14/18 04:57 Amlodipine Besylate (Norvasc) 2.5 mg PO DAILY [facility] Stop: 01/14/18 09:01 Last Admin: 07/16/17 09:07 Dose: 2.5 mg Apixaban (Eliquis) 5 mg PO BID [facility] Stop: 01/14/18 09:01 Last Admin: 07/16/17 09:07 Dose: 5 mg Aspirin (Aspirin Ec) 81 mg PO DAILY [facility] Stop: 01/15/18 09:01 Last Admin: 07/16/17 09:07 Dose: 81 mg Atorvastatin Calcium (Lipitor) 40 mg PO HS [facility] Stop: 01/14/18 21:01 Last Admin: 07/15/17 20:24 Dose: 40 mg Furosemide (Lasix) 40 mg IVP BIDDIURETIC [facility] Stop: 01/14/18 17:01 Last Admin: 07/16/17 09:06 Dose: 40 mg Isosorbide Mononitrate (Imdur) 120 mg PO DAILY [facility] Stop: 01/14/18 09:01 Last Admin: 07/16/17 09:07 Dose: 120 mg Lisinopril (Zestril) 40 mg PO DAILY [facility] Stop: 01/14/18 09:01 Last Admin: 07/16/17 09:07 Dose: 40 mg Metoprolol Succinate (Toprol Xl) 100 mg PO DAILY [facility] Stop: 01/14/18 09:01 Last Admin: 07/16/17 09:06 Dose: 100 mg Naloxone HCl (Narcan) 0.4 mg IVP Q2MIN PRN PRN Reason: Opioid Reversal Stop: 01/14/18 04:51 Nitroglycerin (Nitroglycerin) 0.4 mg SL Q5M PRN PRN Reason: Chest Pain Stop: 01/14/18 04:57 Oxycodone HCl (Oxycontin) 10 mg PO Q12HR [facility]A Stop: 01/14/18 06:01 Last Admin: 07/16/17 05:24 Dose: 10 mg Oxycodone/Acetaminophen (Percocet 10/325) 1 each PO Q6HR PRN PRN Reason: Pain Stop: 01/14/18 10:27 Last Admin: 07/16/17 09:06 Dose: 1 each Paroxetine HCl (Paxil) 20 mg PO DAILY ROSA PRN Reason: Protocol Stop: 01/14/18 09:01 Last Admin: 07/16/17 09:07 Dose: 20 mg Pregabalin (Lyrica) 100 mg PO BID [facility] Stop: 01/14/18 09:01 Last Admin: 07/16/17 09:07 Dose: 100 mg Laboratory Tests 07/16/17 08:39 Potassium 3.4 L Creatinine 0.43 L - Imaging and Cardiology Chest Xray: report reviewed Echo: report reviewed - EKG Interpretation EKG results cardiology: other (Telemetry reviewed with average 79, atrial fibrillation. Longest pause 1.7 seconds. PVCs noted.) Consult Discharge Plan - Plan Referrals: Alpa Lee, HELPER [employer]BLE FINISHER [Primary Care Provider] -
--- NOTE | 2017-07-16 15:40 | Internal Med Progress Note ---
Date of Encounter: 07/16/17 Time of Encounter: 13:00 - Assessment and plan (1) CHF (congestive heart failure) Current Visit: Yes Status: Chronic Assessment and plan: Appreciate cardiology input and assistance. Continue intravenous diuretics. Monitor weights, input and output. Salt and fluid restricted diet. Plan patient approach is euvolemic, will switch to by mouth diuretics. Patient is moderate risk due to need for intravenous diuretics and is at risk of having electrolyte abnormalities and lethal arrhythmias. Qualifiers: Congestive heart failure type: diastolic Congestive heart failure chronicity: acute on chronic Qualified Code(s): I50.33 - Acute on chronic diastolic (congestive) heart failure (2) CAD (coronary artery disease) Current Visit: Yes Status: Chronic Assessment and plan: Recent left heart catheter last year. Stable. Continue statin, aspirin and beta delfino. Qualifiers: Coronary Disease-Associated Artery/Lesion type: unspecified vessel or lesion type [place] vs. transplanted heart: [place] heart Associated angina: without angina Qualified Code(s): I25.10 - Atherosclerotic heart disease of [place] coronary artery without angina pectoris (3) HTN (hypertension) Current Visit: Yes Status: Chronic Assessment and plan: Stable. Continue current medications. Qualifiers: Hypertension type: essential hypertension Qualified Code(s): I10 - Essential (primary) hypertension (4) COPD (chronic obstructive pulmonary disease) Current Visit: Yes Status: Chronic Assessment and plan: Stable. Currently her current breathing treatments. Qualifiers: COPD type: unspecified COPD Qualified Code(s): J44.9 - Chronic obstructive pulmonary disease, unspecified (5) Atrial fibrillation Current Visit: Yes Status: Chronic Assessment and plan: On anticoagulation. Continue rate control medications. Qualifiers: Atrial fibrillation type: paroxysmal Qualified Code(s): I48.0 - Paroxysmal atrial fibrillation - Subjective Interval history: Patient seen and evaluated today. Patient was evaluated by psychology teacher today. She states that she feels well. She states that the swelling in her legs is improving. - Constitutional Vitals: Temp Pulse Resp BP Pulse Ox 98.0 F 80 16 105/58 98 07/16/17 15:19 07/16/17 15:19 07/16/17 15:19 07/16/17 15:19 07/16/17 15:19 Exam: Gen.: Lying in bed. No acute distress. Chest: Clear to auscultation bilaterally. No adventitious sounds present. CVS: First and second heart sounds present. No murmurs, rubs or gallops. 2+ bilateral pitting pedal edema. Abdomen: Soft, nontender, nondistended. Bowel sounds present. Skin: No decubitus ulcers appreciated. Internal Medicine: Result - Labs CBC & Chem 7: 07/15/17 00:58 07/16/17 08:39 Labs: BMP 07/16/17 08:39 Sodium 144 Potassium 3.4 L Chloride 105 Carbon Dioxide 31 H BUN 14 Creatinine 0.43 L Glucose 88 Calcium 9.0 - ABG Interpretation ABG results: PT/INR, D-dimer PT 15.5 Seconds (9.4-12.1) H 07/15/17 00:58 Consult Discharge Plan - Plan Referrals: Alpa Lee CNP [Primary Care Provider] -
--- NOTE | 2017-07-16 17:05 | Electrocardiograph Report ---
[address] [address] Test Date: 2017-07-15 Pat Name: Didier Mcdaniels Department: 113 Room: 3B37 Gender: F Cooking Chef: JAJA : 1955 Requested By: Garcia Whitten Order Number: [id number] Reading MD: Gypsy Zendejas Measurements Intervals [place] Rate: 81 P: [place]: 0 QRS: 39 QRSD: 90 T: 0 QT: 429 QTc: 466 Interpretive Statements ATRIAL FIBRILLATION WITH ABERRANT CONDUCTION OR VENTRICULAR PREMATURE COMPLEXES MINIMAL VOLTAGE CRITERIA FOR LVH, CONSIDER NORMAL VARIANT NONSPECIFIC ST & T-WAVE ABNORMALITY ABNORMAL RHYTHM ECG Electronically Signed On 07-16-2017 17:04:14 EDT by Gypsy Zendejas
[2017-07-17] MEDS: *HR* OxyCODONE ER (12 HR) 10 MG TABLET PO SCH ×2 (05:08→17:27)
[2017-07-17 07:35] LABS: BUN/Creatinine Ratio 48 (6-26); Blood Urea Nitrogen 21 mg/dL (7-20); Calcium 9.1 mg/dL (8.6-10.8); Carbon Dioxide 32 mEq/L (19-29); Chloride 106 mEq/L (98-109); Glucose 96 mg/dL (70-99); Osmolality,Calculated 297 (280-300); Potassium 4.1 mEq/L (3.5-4.5); Sodium 142 mEq/L (136-145); eGFR For African Americans > 60 (> 60); eGFR For Non-African Americans > 60 (> 60)
[2017-07-17] MEDS: Furosemide 40 MG/4 ML VIAL IVP SCH (07:53)
[2017-07-17] MEDS: *HR* OxyCODONE/APAP 10/325 TABLET PO PRN ×3 (07:54→21:01)
[2017-07-17] MEDS: APIXABAN 5 MG TABLET PO SCH ×2 (07:54→21:00)
[2017-07-17] MEDS: Metoprolol XL (24 HR) Succ 50 MG TAB.ER.24H PO SCH (07:54)
[2017-07-17] MEDS: Isosorbide MONOnitrate (24 HR) 60 MG TAB.ER.24H PO SCH (07:54)
[2017-07-17] MEDS: Pregabalin 50 MG CAPSULE PO SCH ×2 (07:54→21:01)
[2017-07-17] MEDS: Aspirin Enteric Coated 81 MG Tablet PO SCH (07:54)
[2017-07-17] MEDS: amLODIPine 5 MG TABLET PO SCH (07:54)
[2017-07-17] MEDS: Lisinopril 20 MG TABLET PO SCH (07:54)
--- NOTE | 2017-07-17 15:20 | Internal Med Progress Note ---
Date of Encounter: 07/17/17 Time of Encounter: 15:18 - Assessment and plan (1) CHF (congestive heart failure) Current Visit: Yes Status: Chronic Assessment and plan: Change diuretics to by mouth route. Anticipate discharge home tomorrow if the patient does well with by mouth diuresis. Monitor weights, input and output. Salt and fluid restricted diet. Patient is moderate risk due to need for intravenous diuretics and is at risk of having electrolyte abnormalities and lethal arrhythmias. Qualifiers: Congestive heart failure type: diastolic Congestive heart failure chronicity: acute on chronic Qualified Code(s): I50.33 - Acute on chronic diastolic (congestive) heart failure (2) CAD (coronary artery disease) Current Visit: Yes Status: Chronic Assessment and plan: Continue statin, aspirin and beta delfino. Qualifiers: Coronary Disease-Associated Artery/Lesion type: unspecified vessel or lesion type [place] vs. transplanted heart: [place] heart Associated angina: without angina Qualified Code(s): I25.10 - Atherosclerotic heart disease of [place] coronary artery without angina pectoris (3) HTN (hypertension) Current Visit: Yes Status: Chronic Assessment and plan: Stable. Continue current medications. Qualifiers: Hypertension type: essential hypertension Qualified Code(s): I10 - Essential (primary) hypertension (4) COPD (chronic obstructive pulmonary disease) Current Visit: Yes Status: Chronic Assessment and plan: Stable. Currently her current breathing treatments. Qualifiers: COPD type: unspecified COPD Qualified Code(s): J44.9 - Chronic obstructive pulmonary disease, unspecified (5) Atrial fibrillation Current Visit: Yes Status: Chronic Assessment and plan: On anticoagulation. Continue rate control medications. Qualifiers: Atrial fibrillation type: paroxysmal Qualified Code(s): I48.0 - Paroxysmal atrial fibrillation - Subjective Interval history: Patient states that the swelling in her legs are much better. She is to be discharged home. She denies any shortness of breath. - Constitutional Vitals: Temp Pulse Resp BP Pulse Ox 97.8 F 64 16 112/57 95 07/17/17 11:28 07/17/17 11:28 07/17/17 11:28 07/17/17 11:28 07/17/17 11:28 General appearance: Present: cachectic, pleasant Exam: Gen.: Lying in bed. No acute distress. Chest: Clear to auscultation bilaterally. No adventitious sounds present. 2+ bilateral pitting pedal edema up to the thighs. CVS: First and second heart sounds present. No murmurs, rubs or gallops. Abdomen: Soft, nontender, nondistended. Bowel sounds present. No hepatosplenomegaly. Skin: No decubitus ulcers appreciated. Internal Medicine: Result - Labs CBC & Chem 7: 07/15/17 00:58 07/17/17 06:46 Labs: BMP 07/17/17 06:46 Sodium 142 Potassium 4.1 Chloride 106 Carbon Dioxide 32 H BUN 21 H Creatinine 0.44 L Glucose 96 Calcium 9.1 - ABG Interpretation ABG results: PT/INR, D-dimer PT 15.5 Seconds (9.4-12.1) H 07/15/17 00:58 Consult Discharge Plan - Plan Referrals: Alpa Lee CNP [Primary Care Provider] - 07/24/17 8:30 am
[2017-07-17] MEDS: Furosemide 40 MG TABLET PO SCH (17:27)
[2017-07-18] MEDS: *HR* OxyCODONE ER (12 HR) 10 MG TABLET PO SCH (05:37)
[2017-07-18] MEDS: Aspirin Enteric Coated 81 MG Tablet PO SCH (09:10)
[2017-07-18] MEDS: Isosorbide MONOnitrate (24 HR) 60 MG TAB.ER.24H PO SCH (09:10)
[2017-07-18] MEDS: Furosemide 40 MG TABLET PO SCH (09:11)
[2017-07-18] MEDS: APIXABAN 5 MG TABLET PO SCH (09:11)
[2017-07-18] MEDS: amLODIPine 5 MG TABLET PO SCH (09:11)
[2017-07-18] MEDS: Metoprolol XL (24 HR) Succ 50 MG TAB.ER.24H PO SCH (09:11)
[2017-07-18] MEDS: Pregabalin 50 MG CAPSULE PO SCH (09:12)
[2017-07-18] MEDS: Lisinopril 20 MG TABLET PO SCH (09:12)
[2017-07-18] MEDS: *HR* OxyCODONE/APAP 10/325 TABLET PO PRN (09:17)
[2017-07-18 11:36] VITALS: BP 108/44
--- NOTE | 2017-07-18 13:36 | Discharge Summary ---
Date of Encounter: 07/18/17 Time of Encounter: 13:32 - Discharge Diagnosis (1) CHF (congestive heart failure) Priority: Primary Status: Chronic Qualifiers: Congestive heart failure type: diastolic Congestive heart failure chronicity: acute on chronic Qualified Code(s): I50.33 - Acute on chronic diastolic (congestive) heart failure (2) CAD (coronary artery disease) Priority: Secondary Status: Chronic Qualifiers: Coronary Disease-Associated Artery/Lesion type: unspecified vessel or lesion type [place] vs. transplanted heart: [place] heart Associated angina: without angina Qualified Code(s): I25.10 - Atherosclerotic heart disease of [place] coronary artery without angina pectoris (3) HTN (hypertension) Priority: Secondary Status: Chronic Qualifiers: Hypertension type: essential hypertension Qualified Code(s): I10 - Essential (primary) hypertension (4) COPD (chronic obstructive pulmonary disease) Priority: Secondary Status: Chronic Qualifiers: COPD type: unspecified COPD Qualified Code(s): J44.9 - Chronic obstructive pulmonary disease, unspecified (5) Atrial fibrillation Priority: Secondary Status: Chronic Qualifiers: Atrial fibrillation type: paroxysmal Qualified Code(s): I48.0 - Paroxysmal atrial fibrillation (6) Respiratory failure Priority: Secondary Status: Chronic Qualifiers: Chronicity: chronic Respiratory failure complication: hypoxia Qualified Code(s): J96.11 - Chronic respiratory failure with hypoxia - Discharge Medications Prescriptions: Aspirin Enteric Coated [Aspirin EC] 81 mg PO DAILY #90 Home Medications: Ergocalciferol (VITAMIN D2) [Vitamin D2 (50,000 UNIT)] 50,000 unit PO DAVIS [History] Folic Acid 1 mg PO DAILY 01/11/16 [History] Metoprolol XL (24 HR) Succ [Toprol Xl] 100 mg PO DAILY 01/11/16 [History] Multivitamin/Iron/Folic Acid [Centrum Complete Multivit Tab] 1 tab PO DAILY [History] Nitroglycerin [Nitrostat] 0.4 mg SL Q5M PRN 01/11/16 [History] Simvastatin [Zocor] 20 mg PO HS 01/11/16 [History] Venlafaxine HCl [Effexor Xr] 75 mg PO DAILY 01/11/16 [History] Vitamin E 1,000 units PO DAILY 01/11/16 [History] ALPRAZolam [Xanax 1 MG Tablet] 1 mg PO TID 10/18/16 [History] Oxycodone HCl/Acetaminophen [Percocet 10-325 mg Tablet] 1 tab PO Q6H PRN [History] Lisinopril [Zestril] 40 mg PO DAILY #0 10/21/16 [Rx] Apixaban [Eliquis] 5 mg PO BID 02/23/17 [History] Oxygen 3 l .ROUTE AD 04/06/17 [History] Propylthiouracil 50 mg PO TID #90 tablet 04/09/17 [Rx] Oxycodone HCl [Oxycodone HCl ER] 30 mg PO Q12H PRN 07/15/17 [History] Potassium Chloride [Klor-Con Sprinkle] 10 meq PO BID 07/15/17 [History] Pregabalin [Lyrica] 75 mg PO BID 07/15/17 [History] Aspirin Enteric Coated [Aspirin EC] 81 mg PO DAILY #90 07/18/17 [Rx] Furosemide [Lasix] 40 mg PO BIDWM #0 07/18/17 [Rx] Isosorbide MONOnitrate (24 HR) [Imdur] 120 mg PO DAILY 07/18/17 [Rx] OxyCODONE ER (12 HR) [OxyCONTIN] 10 mg PO Q12HR 07/18/17 [Rx] Paroxetine [Paxil] 20 mg PO DAILY tab 07/18/17 [Rx] Pregabalin [Lyrica] 100 mg PO BID 07/18/17 [Rx] amLODIPine [Norvasc] 2.5 mg PO DAILY tab 07/18/17 [Rx] Allergies/Adverse Reactions: 3 Allergy/AdvReac Type Severity Reaction Status Date / Time hydrocodone [From Vicodin] Allergy Swelling Verified 02/23/17 14:36 of Lip/Tongue/Throat Procedures/tests Complete & Pending: Procedures Performed prior 72 hours Category Date Time Status EV limited echocardiogram Routine Y 07/16/17 13:43 Completed Date of admission: 07/15/17 04:50 Primary care physician: Alpa Lee CNP Consults: 07/15/17 11:14 Consult to Cardiology [CONS] Routine Comment: Consulting Provider: [facility] [place] Reason for Consult: CHF exacerbation Call Completed: Yes 07/16/17 11:12 Consult to Fishing Manager [CONS] Routine Reason for SW Consult: Patient states she needs assistance at home. Does not have scale to weight herself. Discharging clinician: Collins Devlin Anticipated date of discharge: 07/18/17 - Patient Status Disposition: Home, Self-Care Condition: Fair Functional capacity at discharge: independent ambulation Overall status at discharge: patient is progressing back to baseline - Discharge Instructions Follow Up With: Alpa Lee CNP [Primary Care Provider] - 07/24/17 8:30 am Arturo Marie MD [Partnered Physician] - (1 month) - Diet and Activity Activity: increase activity as tolerated, resume usual activities as tolerated, wear oxygen at all times Diet: low fat, low cholesterol, low salt diet, other (2L fluid restriction) Hospital course: Ms. Mcdaniels is a 62 year old female with a history of diastolic CHF, coronary artery disease, hypertension, paroxysmal atrial fibrillation presented to the emergency room due to dyspnea of exertion, swelling in the leg and weight gain. She was admitted with a diagnosis of diastolic CHF exacerbation. She was placed on intravenous diuretics. Cardiology was consulted. The patient diuresed adequately and her weight gain and breathing got better. Cardiology recommended outpatient follow-up. As the patient is currently euvolemic and she is on by mouth diuretics, she has been deemed stable to be discharged back home. - Time Spent with Patient Total time spent providing and/or coordinating discharge services: Greater than 30 minutes (40 min) - Constitutional Vitals: Temp Pulse Resp BP Pulse Ox 98.1 F 62 18 108/44 94 07/18/17 11:33 07/18/17 11:33 07/18/17 11:33 07/18/17 11:33 07/18/17 11:33 General appearance: Present: cachectic, pleasant Exam: Gen.: Lying in bed. No acute distress. Chest: Clear to auscultation bilaterally. No adventitious sounds present. CVS: First and second heart sounds present. No murmurs, rubs or gallops. Abdomen: Soft, nontender, nondistended. Bowel sounds present. No hepatosplenomegaly.
== END 2017-07-18 17:27 | disposition home or self-care (01) | DRG 291 ==
LOC: EMEROO 23:35 → 3BNU 23:35 → SUATTDRO 07-15 04:50
PROVIDERS: ADMIT Internal Medicine; ATTEND Internal Medicine Sleep Medicine

== ENCOUNTER 2017-08-13 12:37 | Inpatient (IN) ==
[2017-08-13 14:05] LABS: Basophils % 0.2 %; Eosinophils % 0.4 %; Hematocrit 34.6 % (35.3-44.9); Hemoglobin 10.4 g/dL (11.5-15.4); Immature Granulocytes % 0.2 % (0-4); Lymphocytes # 1.3 K/mcL (0.6-4.6); Lymphocytes % 23.6 %; Mean Corpuscular HGB Conc 30.1 g/dL (31.6-35.5); Mean Corpuscular Hemoglobin 25.4 pg (28.0-33.3); Mean Corpuscular Volume 84.6 fL (83.0-100.0); Mean Platelet Volume 11.7 fL (9.4-12.4); Monocytes # 0.4 K/mcL (0.0-1.3); Monocytes % 6.8 %; Neutrophils # 3.7 K/mcL (1.6-8.9); Platelet Count 143 K/mcL (140-400); Red Blood Count 4.09 M/mcL (3.82-4.97); Red Cell Distribution Width 16.4 % (11.5-14.5); Segmented Neutrophils % 68.8 %
[2017-08-13 14:15] LABS: BUN/Creatinine Ratio 28 (6-26); Blood Urea Nitrogen 13 mg/dL (7-20); Carbon Dioxide 25 mEq/L (19-29); Chloride 106 mEq/L (98-109); Glucose 74 mg/dL (70-99); Osmolality,Calculated 287 (280-300); Potassium 3.6 mEq/L (3.5-4.5); Sodium 139 mEq/L (136-145); eGFR For African Americans > 60 (> 60); eGFR For Non-African Americans > 60 (> 60)
[2017-08-13] MEDS ORDERED: Nitroglycerin 1 INCH/GM PACKET TP ONE (14:15)
--- NOTE | 2017-08-13 14:19 | Emergency Department Note ---
Disposition Clinical Impression: Dyspnea on exertion Acute exacerbation of CHF (congestive heart failure) Qualifiers: Congestive heart failure type: diastolic Qualified Code(s): I50.33 - Acute on chronic diastolic (congestive) heart failure Atrial fibrillation Qualifiers: Atrial fibrillation type: persistent Qualified Code(s): I48.1 - Persistent atrial fibrillation Disposition: Admitted As Inpatient Condition: Undetermined Time of Disposition: 15:42 Chest Pain HPI - General Chief Complaint: ED Chest Pain Stated Complaint: NOAH/Heart hearts/Swelling all over Time Seen by Provider: 08/13/17 13:56 Source: patient Mode of arrival: ambulatory Limitations: no limitations Vital Signs Reviewed: Yes Nursing Notes Reviewed: Yes - History of Present Illness HPI Narrative: 62-year-old female with history of congestive heart failure arrives to [facility] emergency department complaining of shortness of breath , bilateral lower extremity swelling, chest discomfort that has been ongoing over the course of the past 3-4 days. The patient states it acutely worsened over the course of the past 24 hours for the patient states that she cannot stand the amount of pain she is experiencing in bilateral lower extremities. The patient is taking Lasix 80 mg twice a day but she states it is not getting rid of her fluid. The patient states she is having shortness of breath associated with this where she is having difficulty ambulating more than just a few steps without getting very short of breath. The patient also states that she is having chest pain upon ambulation to the point where she is requiring nitroglycerin multiple times per day in order to prevent the chest pain from worsening. The patient is sitting in the room resting comfortably at this time. She does have bilateral lower injury swelling and rails in particular left lower lobe. Pt complaint: chest pain Onset (ago): day(s) (3-4) Duration: intermittent, now resolved Onset: during exertion Pain Location: substernal Severity: mild, moderate Severity scale (1-10): 6 Quality: tightness Pain Radiation: none Improves with: nitroglycerin, rest Worsens with: exertion Associated symptoms: Reports: dyspnea, leg swelling Treatments prior to arrival chest pain: none - Related Data On Oral Contraceptives: No Home Medications Medication Instructions Recorded Confirmed Ergocalciferol (VITAMIN D2) 50,000 unit PO DAVIS 01/11/16 08/13/17 [Vitamin D2 (50,000 UNIT)] Folic Acid 1 mg PO DAILY 01/11/16 08/13/17 Metoprolol XL (24 HR) Succ [Toprol 100 mg PO DAILY 01/11/16 08/13/17 Xl] Multivitamin/Iron/Folic Acid 1 tab PO DAILY 01/11/16 08/13/17 [Centrum Complete Multivit Tab] Nitroglycerin [Nitrostat] 0.4 mg SL Q5M PRN 01/11/16 08/13/17 Simvastatin [Zocor] 20 mg PO HS 01/11/16 08/13/17 Venlafaxine HCl [Effexor Xr] 75 mg PO DAILY 01/11/16 08/13/17 Vitamin E 1,000 units PO DAILY 01/11/16 08/13/17 ALPRAZolam [Xanax 1 MG Tablet] 1 mg PO TID 10/18/16 08/13/17 Oxycodone HCl/Acetaminophen 1 tab PO Q6H PRN 10/18/16 08/13/17 [Percocet 10-325 mg Tablet] Apixaban [Eliquis] 5 mg PO BID 02/23/17 08/13/17 Oxygen 3 l .ROUTE AD 04/06/17 08/13/17 Oxycodone HCl [Oxycodone HCl ER] 30 mg PO Q12H PRN 07/15/17 08/13/17 Potassium Chloride [Klor-Con 10 meq PO BID 07/15/17 08/13/17 Sprinkle] Pregabalin [Lyrica] 75 mg PO BID 07/15/17 08/13/17 Previous Rx's Medication Instructions Recorded Lisinopril [Zestril] 40 mg PO DAILY #0 10/21/16 Propylthiouracil 50 mg PO TID #90 tablet 04/09/17 Aspirin Enteric Coated [Aspirin EC] 81 mg PO DAILY #90 07/18/17 Furosemide [Lasix] 40 mg PO BIDWM #0 07/18/17 Isosorbide MONOnitrate (24 HR) 120 mg PO DAILY 07/18/17 [Imdur] Paroxetine [Paxil] 20 mg PO DAILY tab 07/18/17 amLODIPine [Norvasc] 2.5 mg PO DAILY tab 07/18/17 Allergies Allergy/AdvReac Type Severity Reaction Status Date / Time hydrocodone [From Vicodin] Allergy Swelling Verified 02/23/17 14:36 of Lip/Tongue/Throat All systems ED: reviewed and negative except as stated. Constitutional: Denies: fever, chills, weakness, weight change Cardiovascular: Reports: chest pain, edema. Denies: palpitations, dyspnea on exertion, syncope Respiratory: Reports: dyspnea. Denies: cough, wheezes, hemoptysis, stridor Gastrointestinal: Denies: abdominal pain, nausea, vomiting, diarrhea, constipation, hematemesis, melena, hematochezia Musculoskeletal: Denies: back pain, neck pain, arthralgia, myalgia Integumentary: Denies: rash, abrasion, lesions Neurological: Denies: headache, weakness, numbness, paresthesias, confusion, abnormal gait, vertigo Chest Pain PMH - Past Medical History Medical history: Reports: atrial fibrillation, coronary artery disease, hyperlipidemia, hypertension, osteoporosis, other Surgical history: Reports: cholecystectomy, coronary bypass (CABG), hysterectomy , other (bowel surgery) Psychiatric history: Reports: depression - Social History Smoking Status: Never smoker Alcohol use: Reports: none Drug use: Reports: none Physical Exam - General Limitations: no limitations General appearance: alert, in no apparent distress - Head Head exam: atraumatic, normocephalic, normal inspection - Neck Neck exam: Present: normal inspection, full ROM, trachea midline - Chest Chest inspection: Present: normal inspection, symmetric chest wall rise - Expanded Respiratory Exam Location: rales: Left, Lower - Cardiovascular Cardiovascular exam: Present: regular rate, irregular rhythm, normal heart sounds - Abdominal Exam Abdominal exam: Present: soft, Non-Tender. Absent: tenderness, distention, guarding, rebound, rigidity - Extremities Exam Extremities exam: Present: full ROM, pedal edema (2+ pitting edema bilaterally) - Neurological Exam Neurological exam: Present: alert, oriented X3 - Skin Skin exam: Present: warm, dry, intact, normal color Course - Consultations Consultation #1: Spoke with Dr. Chin in cardiology who recommended holding off on heparin at this time given the patient is chest pain-free and has an EKG that is similar to previous EKGs. We will admit the patient to the hospital. Time: 14:56 Vital Signs Temperature 97.6 F 08/13/17 12:43 Pulse Rate 100 08/13/17 12:43 Respiratory Rate 18 08/13/17 12:43 Blood Pressure 147/51 08/13/17 12:43 O2 Sat by Pulse Oximetry 97 08/13/17 12:43 Temperature 98.0 F 08/14/17 16:11 Pulse Rate 75 08/14/17 16:11 Respiratory Rate 17 08/14/17 16:11 Blood Pressure 133/69 08/14/17 16:11 O2 Sat by Pulse Oximetry 96 08/14/17 16:11 Oxygen Delivery Oxygen Delivery Nasal Cannula Chest Pain - MDM Narrative Medical decision making narrative: She is workup in the emergency department demonstrates an EKG without any acute changes. The patient does have a mildly elevated troponin at 0.06. The patient 's BNP is elevated at roughly 4000. We do feel as though the patient is not fluid overloaded. The patient is received a small amount of relief with nitroglycerin paste as well as IV Lasix. We will admit the patient to the hospitalist at this time. Patient agrees to plan. Accepted by Dr. Nathan. - Medical Records Medical records reviewed: Yes I reviewed the patient's medical records. - Lab Data Lab results reviewed: Yes I reviewed the patient's lab results. Result diagrams: 08/14/17 04:15 08/14/17 04:15 Lab Results 08/13/17 08/13/17 08/13/17 Range/Units 13:45 13:45 13:45 WBC 5.3 (4.3-11.1) K/mcL RBC 4.09 (3.82-4.97) M/mcL Hgb 10.4 L (11.5-15.4) g/dL Hct 34.6 L (35.3-44.9) % MCV 84.6 (83.0-100.0) fL MCH 25.4 L (28.0-33.3) pg MCHC 30.1 L (31.6-35.5) g/dL RDW 16.4 H (11.5-14.5) % Plt Count 143 (140-400) K/mcL MPV 11.7 (9.4-12.4) fL Immature Gran % 0.2 (0-4) % Seg Neutrophils % 68.8 % Lymphocytes % 23.6 % Monocytes % 6.8 % Eosinophils % 0.4 % Basophils % 0.2 % Neutrophils # 3.7 (1.6-8.9) K/mcL Lymphocytes # 1.3 (0.6-4.6) K/mcL Monocytes # 0.4 (0.0-1.3) K/mcL Eosinophils # 0.0 (0.0-0.6) K/mcL Basophils # 0.0 (0.0-0.2) K/mcL Sodium 139 (136-145) mEq/L Potassium 3.6 (3.5-4.5) mEq/L Chloride 106 (98-109) mEq/L Carbon Dioxide 25 (19-29) mEq/L BUN 13 (7-20) mg/dL Creatinine 0.46 L (0.57-1.11) mg/dL Est GFR ( Amer) > 60 (> 60) Est GFR (Non-Af Amer) > 60 (> 60) BUN/Creatinine Ratio 28 H (6-26) Glucose 74 (70-99) mg/dL Calculated Osmolality 287 (280-300) Calcium 9.0 (8.6-10.8) mg/dL Troponin I 0.06 H* (0-0.03) ng/mL B-Natriuretic Peptide (0-100) pg/mL 08/13/17 Range/Units 13:45 WBC (4.3-11.1) K/mcL RBC (3.82-4.97) M/mcL Hgb (11.5-15.4) g/dL Hct (35.3-44.9) % MCV (83.0-100.0) fL MCH (28.0-33.3) pg MCHC (31.6-35.5) g/dL RDW (11.5-14.5) % Plt Count (140-400) K/mcL MPV (9.4-12.4) fL Immature Gran % (0-4) % Seg Neutrophils % % Lymphocytes % % Monocytes % % Eosinophils % % Basophils % % Neutrophils # (1.6-8.9) K/mcL Lymphocytes # (0.6-4.6) K/mcL Monocytes # (0.0-1.3) K/mcL Eosinophils # (0.0-0.6) K/mcL Basophils # (0.0-0.2) K/mcL Sodium (136-145) mEq/L Potassium (3.5-4.5) mEq/L Chloride (98-109) mEq/L Carbon Dioxide (19-29) mEq/L BUN (7-20) mg/dL Creatinine (0.57-1.11) mg/dL Est GFR ( Amer) (> 60) Est GFR (Non-Af Amer) (> 60) BUN/Creatinine Ratio (6-26) Glucose (70-99) mg/dL Calculated Osmolality (280-300) Calcium (8.6-10.8) mg/dL Troponin I (0-0.03) ng/mL B-Natriuretic Peptide 4069 H (0-100) pg/mL - EKG Data EKG attestation: Yes I reviewed and interpreted this EKG. EKG results narrative: Her rate 83 bpm. QTc 413 ms. Normal axis. Atrial fibrillation. No ST elevation or ST depression noted. Similar to EKG from 07/15/2017. No acute changes. Attestation Statement - Attestation Attestation: I, Dwayne Duong, examined this patient and my medical decision-making was reviewed with the [employer]/PA/Advanced Practice Nurse/Resident Physician. I agree with the documented findings, disposition and treatment plan as described except to the extent set forth below. 62-year-old female presents to the emergency department with concerns of shortness of breath, bilateral lower extremity edema and chest pain. She states her pain worsened over the past 24 hours. EKG shows atrial fibrillation with a rate of 83 without evidence of STEMI. BNP is significantly elevated at 4000. Initial troponin mildly elevated at 0.06. Patient does not have chest pain emergency Department. She feels comfortable with the plan for admission to the hospital. She was given Lasix in the emergency department for diuresis.
[2017-08-13] MEDS ORDERED: Furosemide 80 MG in 0.9 % Sodium Chloride 50 ML IVPB ONE (14:36)
[2017-08-13] MEDS ORDERED: *HR* Promethazine 25 MG/ML VIAL IVP PRN (16:28)
[2017-08-13] MEDS ORDERED: Naloxone 0.4 MG/ML INJ IVP PRN (16:28)
[2017-08-13] MEDS ORDERED: Ondansetron 4 MG/2 ML VIAL IVP PRN (16:28)
[2017-08-13] MEDS ORDERED: Acetaminophen 325 MG TABLET PO PRN (16:28)
[2017-08-13] MEDS ORDERED: Furosemide 40 MG/4 ML VIAL IVP ONE (16:31)
[2017-08-13] MEDS ORDERED: ALPRAZolam 1 MG TABLET PO PRN (16:32)
--- NOTE | 2017-08-13 16:38 | Internal Med History&Physical ---
Date of Encounter: 08/13/17 Time of Encounter: 16:00 Assessment and Plan (1) Diastolic CHF, acute on chronic Current visit: Yes Status: Acute Will admit the pt into Tele Reviewed 2 D Echo from last year showed normal LVEF, however she did have diastolic dysfunction Will repeat naother 2 D Echo Reviewed CXR showing vascular congestion and b/l pleural effusion, no infiltrates placed her on director of cardiac cath lab check serial troponin Started on IV Lasix 40mg Q8hr Also added Metolazone 2.5mg daily Cont B delfino and other home meds (2) Bilateral leg edema Current visit: Yes Status: Acute due to CHF mostly cont IV lasix cont close monitoring no signs of cellulites no signs of DVT.. she is already on Eliquis (3) Chest pain Current visit: No Status: Acute Due to CHF exacerbation placed her on director of cardiac cath lab check serial troponin Started on IV Lasix 40mg Q8hr Also added Metolazone 2.5mg daily Cont B delfino and other home meds Qualifiers: Chest pain type: chest pain due to myocardial ischemia Ischemic chest pain type: unstable angina pectoris Qualified Code(s): I20.0 - Unstable angina (4) Chronic respiratory failure with hypoxia Current visit: Yes Status: Chronic stable Cont 2 lit O2 (5) Atrial fibrillation Current visit: Yes Status: Chronic rate controlled with Metoprolol on Eliquis for anticoag Qualifiers: Atrial fibrillation type: persistent Qualified Code(s): I48.1 - Persistent atrial fibrillation (6) Hx of CABG Current visit: No Status: Chronic resumed home meds (7) CAD (coronary artery disease) Current visit: No Status: Chronic Qualifiers: Coronary Disease-Associated Artery/Lesion type: unspecified vessel or lesion type [place] vs. transplanted heart: [place] heart Associated angina: without angina Qualified Code(s): I25.10 - Atherosclerotic heart disease of [place] coronary artery without angina pectoris (8) HTN (hypertension) Current visit: No Status: Chronic stable with current meds Qualifiers: Hypertension type: essential hypertension Qualified Code(s): I10 - Essential (primary) hypertension Internal Medicine - H&P: HPI Chief complaint: Shortness of breath Admitted From: Emergency Dept Plans for Post Hospital Care: Home History of present illness: Ms. Mcdaniels is a 62 year old female with history of diastolic congestive heart failure, Chronic Afib on Eliquis for anticoagulation, HTN, HLD came to ER complaining of progressively worsening shortness of breath and bilateral lower extremity swelling that has been ongoing over the course of the past 3-4 days. The patient states it acutely worsened over the course of the past 24 hours for the patient states that she cannot stand the amount of pain she is experiencing in bilateral lower extremities. The patient is taking Lasix 80 mg twice a day but she states it is not getting rid of her fluid. The patient states she is having shortness of breath associated with this where she is having difficulty ambulating more than just a few steps without getting very short of breath. The patient also states that she is having chest pain upon ambulation to the point where she is requiring nitroglycerin multiple times per day in order to prevent the chest pain from worsening. The patient is sitting in the room resting comfortably at this time. Denied any active CP now. Past Med Surg Social Fam HX - Past Medical History Medical history: atrial fibrillation, coronary artery disease, hyperlipidemia, hypertension, osteoporosis, other Psychiatric history: depression - Past Surgical History Surgical History: cholecystectomy, coronary bypass (CABG), hysterectomy, other ( bowel surgery) - Social History Smoking Status: Never smoker Smokeless Tobacco Status: No Alcohol use: none Drug use: none - Family History Father Living Status: Hx Family Cardiac Disorders: Yes Mother Adopted: No Family Member Ethnicity: Non- Living Status: Hx Family Cardiac Disorders: Yes ([place]) Hx Family Respiratory Disorders: No Hx Family Cancer: Yes (Bowel Cancer) Hx Family GI Disorders: Yes (Bowel Cancer) Hx Family Endocrine Disorder: Yes (DM) Hx Family Neuromuscular Disorders: No Hx Family Neurologic Disorders: No Hx Family HEENT Disorders: No Hx Family Autoimmune Disorders: No Internal Medicine - H&P: Meds Ergocalciferol (VITAMIN D2) [Vitamin D2 (50,000 UNIT)] 50,000 unit PO DAVIS [History] Folic Acid 1 mg PO DAILY 01/11/16 [History] Metoprolol XL (24 HR) Succ [Toprol Xl] 100 mg PO DAILY 01/11/16 [History] Multivitamin/Iron/Folic Acid [Centrum Complete Multivit Tab] 1 tab PO DAILY [History] Nitroglycerin [Nitrostat] 0.4 mg SL Q5M PRN 01/11/16 [History] Simvastatin [Zocor] 20 mg PO HS 01/11/16 [History] Venlafaxine HCl [Effexor Xr] 75 mg PO DAILY 01/11/16 [History] Vitamin E 1,000 units PO DAILY 01/11/16 [History] ALPRAZolam [Xanax 1 MG Tablet] 1 mg PO TID 10/18/16 [History] Oxycodone HCl/Acetaminophen [Percocet 10-325 mg Tablet] 1 tab PO Q6H PRN [History] Lisinopril [Zestril] 40 mg PO DAILY #0 10/21/16 [Rx] Apixaban [Eliquis] 5 mg PO BID 02/23/17 [History] Oxygen 3 l .ROUTE AD 04/06/17 [History] Propylthiouracil 50 mg PO TID #90 tablet 04/09/17 [Rx] Oxycodone HCl [Oxycodone HCl ER] 30 mg PO Q12H PRN 07/15/17 [History] Potassium Chloride [Klor-Con Sprinkle] 10 meq PO BID 07/15/17 [History] Pregabalin [Lyrica] 75 mg PO BID 07/15/17 [History] Aspirin Enteric Coated [Aspirin EC] 81 mg PO DAILY #90 07/18/17 [Rx] Furosemide [Lasix] 40 mg PO BIDWM #0 07/18/17 [Rx] Isosorbide MONOnitrate (24 HR) [Imdur] 120 mg PO DAILY 07/18/17 [Rx] Paroxetine [Paxil] 20 mg PO DAILY tab 07/18/17 [Rx] amLODIPine [Norvasc] 2.5 mg PO DAILY tab 07/18/17 [Rx] 3 Allergy/AdvReac Type Severity Reaction Status Date / Time hydrocodone [From Vicodin] Allergy Swelling Verified 02/23/17 14:36 of Lip/Tongue/Throat All Systems PM: A 10-system review of systems was performed and is negative for pertinent findings except as documented above in the HPI. Review of systems: All the systems are reviewed everything is benign except the systems and symptoms I mentioned in the history of present illness - Constitutional Vitals: Temp Pulse Resp BP Pulse Ox 97.6 F 85 18 142/74 100 08/13/17 12:43 08/13/17 15:35 08/13/17 15:35 08/13/17 15:35 08/13/17 15:35 General appearance: Present: mild distress, A&O X 3, answers questions appropriately - Head Head exam: Present: atraumatic, normal inspection - Respiratory Respiratory exam: Present: decreased breath sounds, rales (mild), wheezes (mild) . Absent: respiratory distress, rhonchi - Cardiovascular Cardiovascular exam: Present: irregular rhythm, +S1, +S2. Absent: systolic murmur - GI/Abdominal GI/Abdominal exam: Present: normal bowel sounds, soft, no peritoneal signs. Absent: distended, tenderness - Extremities Exam Extremities exam: Present: pedal edema (diffuse 3+ Pitting edema in both legs extending cari feet to thigh). Absent: calf tenderness, tenderness - Back Exam Back exam: Absent: CVA tenderness (L), CVA tenderness (R) - Neurological Exam Neurological exam: Present: alert, oriented X3 - Psychiatric Psychiatric exam: Present: normal affect, normal mood Internal Med - H&P Results - Labs CBC & Chem 7: 08/13/17 13:45 08/13/17 13:45
[2017-08-13] MEDS ORDERED: NON-FORMULARY MEDICATION 1 EACH EACH (Oxygen [Oxygen] 3 L) SCH (16:45)
[2017-08-13] MEDS: metOLazone 2.5 MG TABLET PO SCH (17:25)
[2017-08-13] MEDS: *HR* Morphine 2 MG/ML SYRINGE IVP PRN (17:34)
[2017-08-13] MEDS: Pregabalin 75 MG CAPSULE PO SCH (20:36)
[2017-08-13] MEDS: APIXABAN 5 MG TABLET PO SCH (20:37)
[2017-08-14] MEDS: Furosemide 40 MG/4 ML VIAL IVP SCH ×4 (00:38→23:48)
[2017-08-14] MEDS: *HR* Morphine 2 MG/ML SYRINGE IVP PRN (01:52)
[2017-08-14 05:02] LABS: Alanine Aminotransferase 27 Units/L (0-55); Albumin 2.4 g/dL (3.5-5.0); Albumin/Globulin Ratio 0.6 (1.1-2.2); Alkaline Phosphatase 336 Units/L (38-126); Aspartate Amino Transferase 40 Units/L (5-34); BUN/Creatinine Ratio 20 (6-26); Blood Urea Nitrogen 9 mg/dL (7-20); Calcium 8.9 mg/dL (8.6-10.8); Carbon Dioxide 33 mEq/L (19-29); Chloride 101 mEq/L (98-109); Chol/HDL Ratio 2.2 (0-4.9); Globulin 4.3 g/dL (2.4-3.5); Glucose 92 mg/dL (70-99); HDL Cholesterol 33 mg/dL (40-59); LDL Cholesterol,Calculated 28 mg/dL (0-99); Magnesium 1.2 mg/dL (1.6-2.6); Osmolality,Calculated 294 (280-300); Potassium 2.7 mEq/L (3.5-4.5); Sodium 143 mEq/L (136-145); Total Protein 6.7 g/dL (6.0-8.3); Triglycerides 53 mg/dL (< 150); eGFR For African Americans > 60 (> 60); eGFR For Non-African Americans > 60 (> 60)
[2017-08-14 05:03] LABS: Cholesterol 72 mg/dL (< 200); Eosinophils % 0.2 %; Hematocrit 30.9 % (35.3-44.9); Hemoglobin 9.6 g/dL (11.5-15.4); Immature Granulocytes % 0.2 % (0-4); Lymphocytes # 1.2 K/mcL (0.6-4.6); Lymphocytes % 21.8 %; Mean Corpuscular HGB Conc 31.1 g/dL (31.6-35.5); Mean Corpuscular Hemoglobin 25.5 pg (28.0-33.3); Mean Corpuscular Volume 82.2 fL (83.0-100.0); Mean Platelet Volume 12.5 fL (9.4-12.4); Monocytes # 0.5 K/mcL (0.0-1.3); Monocytes % 9.7 %; Neutrophils # 3.8 K/mcL (1.6-8.9); Platelet Count 136 K/mcL (140-400); Red Blood Count 3.76 M/mcL (3.82-4.97); Red Cell Distribution Width 16.3 % (11.5-14.5); Segmented Neutrophils % 68.1 %
[2017-08-14] MEDS: Lisinopril 20 MG TABLET PO SCH (08:25)
[2017-08-14] MEDS: Multivit/Ca/Min/Fe/FA 1 TAB TABLET PO SCH (08:26)
[2017-08-14] MEDS: Pregabalin 75 MG CAPSULE PO SCH ×2 (08:26→21:14)
[2017-08-14] MEDS: Aspirin Enteric Coated 81 MG Tablet PO SCH (08:26)
[2017-08-14] MEDS: APIXABAN 5 MG TABLET PO SCH ×2 (08:26→21:14)
[2017-08-14] MEDS: Isosorbide MONOnitrate (24 HR) 60 MG TAB.ER.24H PO SCH (08:26)
[2017-08-14] MEDS: Venlafaxine XR (24 HR) 75 MG CAP.ER.24H PO SCH (08:26)
[2017-08-14] MEDS: metOLazone 2.5 MG TABLET PO SCH (08:26)
[2017-08-14] MEDS: Folic Acid 1 MG TABLET PO SCH (08:26)
[2017-08-14] MEDS ORDERED: Metoprolol XL (24 HR) Succ 50 MG TAB.ER.24H PO SCH (09:00)
--- NOTE | 2017-08-14 11:03 | Internal Med Progress Note ---
Date of Encounter: 08/14/17 Time of Encounter: 11:00 - Assessment and plan (1) Hypokalemia Current Visit: Yes Status: Acute (2) Diastolic CHF, acute on chronic Current Visit: Yes Status: Acute (3) Hypomagnesemia Current Visit: Yes Status: Acute (4) Atrial fibrillation Current Visit: Yes Status: Chronic Qualifiers: Atrial fibrillation type: persistent Qualified Code(s): I48.1 - Persistent atrial fibrillation (5) CAD (coronary artery disease) Current Visit: Yes Status: Chronic Qualifiers: Coronary Disease-Associated Artery/Lesion type: unspecified vessel or lesion type [place] vs. transplanted heart: [place] heart Associated angina: without angina Qualified Code(s): I25.10 - Atherosclerotic heart disease of [place] coronary artery without angina pectoris (6) HTN (hypertension) Current Visit: Yes Status: Chronic Qualifiers: Hypertension type: essential hypertension Qualified Code(s): I10 - Essential (primary) hypertension (7) Diabetes Current Visit: Yes Status: Chronic Qualifiers: Diabetes mellitus type: type 2 Diabetes mellitus complication status: with unspecified complications Diabetes mellitus nursing home insulin use: without terminal press operator use Qualified Code(s): E11.8 - Type 2 diabetes mellitus with unspecified complications (8) COPD (chronic obstructive pulmonary disease) Current Visit: Yes Status: Chronic Qualifiers: COPD type: unspecified COPD Qualified Code(s): J44.9 - Chronic obstructive pulmonary disease, unspecified - Subjective Interval history: Hx: Ms. Mcdaniels is a 62 year old female with history of diastolic congestive heart failure, Chronic Afib on Eliquis for anticoagulation, HTN, HLD came to ER complaining of progressively worsening shortness of breath and bilateral lower extremity swelling that has been ongoing over the course of the past 3-4 days. Patient is seen today and discuss an PCR and labs reviewed. #1 acute diastolic congestive heart failure. Echocardiogram shows EF about 60% with diastolic dysfunction but no significant valvular abnormality. Patient is on IV Lasix and Zaroxolyn and has been diuresing very well. Continue diuresis #2 hypokalemia and hypomagnesemia supplement both and recheck in the morning. #3 chronic atrial fibrillation heart rate close to 100 patient on Eliquis. We will try to control heart rate with the help of beta delfino. Add Lopressor #4 diabetes Accu-Chek 4 times a day with sliding scale coverage - Constitutional Vitals: Temp Pulse Resp BP Pulse Ox 98.5 F 99 17 144/69 97 08/14/17 06:30 08/14/17 06:30 08/14/17 06:30 08/14/17 06:30 08/14/17 06:30 General appearance: Present: mild distress, A&O X 3, answers questions appropriately - Head Head exam: Present: atraumatic, normocephalic - Eye Eye exam: Present: PERRL, conjuntiva pink, sclera anicteric Pupils: Present: PERRL - Neck Neck exam general surgery: Present: supple, trachea midline. Absent: lymphadenopathy - Respiratory Respiratory exam: Present: CTAB. Absent: accessory muscle use, rales, rhonchi, wheezes - Cardiovascular Cardiovascular exam: Present: RRR, +S1, +S2. Absent: diastolic murmur, gallop, rubs, systolic murmur - GI/Abdominal GI/Abdominal exam: Present: normal bowel sounds, soft, no peritoneal signs. Absent: distended, tenderness - Extremities Exam Extremities exam: Present: warm, radial pulses palpable and symmetrical. Absent : calf tenderness, cyanotic, pedal edema - Neurological Exam Neurological exam: Present: CN II-XII intact, oriented X3, no focal deficits. Absent: pronater drift, facial droop, speech deficit - Skin Skin exam: Present: dry, intact Internal Medicine: Result - Labs CBC & Chem 7: 08/14/17 04:15 08/14/17 04:15 Labs: Short CBC 08/14/17 Range/Units 04:15 WBC 5.5 (4.3-11.1) K/mcL Hgb 9.6 L (11.5-15.4) g/dL Hct 30.9 L (35.3-44.9) % Plt Count 136 L (140-400) K/mcL Neutrophils # 3.8 (1.6-8.9) K/mcL BMP 08/14/17 04:15 Sodium 143 Potassium 2.7 L Chloride 101 Carbon Dioxide 33 H BUN 9 Creatinine 0.46 L Glucose 92 Calcium 8.9 Cardiac Enzymes 08/13/17 08/14/17 Range/Units 21:51 04:15 Troponin I 0.03 0.04 H* (0-0.03) ng/mL Liver Function 09/26/17 Range/Units 04:15 Total Bilirubin 2.0 H (0.2-1.2) mg/dL AST 40 H (5-34) Units/L ALT 27 (0-55) Units/L Alkaline Phosphatase 336 H (38-126) Units/L Albumin 2.4 L (3.5-5.0) g/dL Consult Discharge Plan - Plan Referrals: Alpa Lee, [facility] [Primary Care Provider] -
[2017-08-14] MEDS ORDERED: Potassium Chloride 40 MEQ, Lidocaine 1% 2 ML in D5% in Water 500 ML IVPB ONE (11:12)
--- NOTE | 2017-08-14 11:25 | Cardiology Consult Note ---
<Maximino Hairston - Last Filed: 08/14/17 11:53> Date of Encounter: 08/14/17 Time of Encounter: 11:20 Assessment and Plan (1) Diastolic congestive heart failure, NYHA class 3 Current Visit: No Status: Suspected Acute on chronic HFpEF. TTE completed shows LVEF 60%. Normal left ventricular size and systolic function. Indeterminate left ventricular diastolic function. Normal right ventricular size and function. Mild aortic regurgitation. Mild mitral regurgitation. Mild tricuspid regurgitation. At least mild pulmonary hypertension by TR gradient. IVC is not visualized to estimate RVSP. A pleural effusion is present. Indeterminate diastolic dysfunction d/t atrial fibrillation. BNP 4069. CXR shows-Persistent small bilateral pleural effusions, slightly improved compared to prior exam of 07/15/2017. Persistent bibasilar atelectasis , left side greater than right. It would be difficult to exclude pneumonia at the left base. Continued follow-up recommended. 2. Interval improvement of vascular congestion and interstitial edema. Agree with IV lasix. On lasix 40 mg IV q8HR. Zaroxolyn added. Net negative 3300. Symptoms improving. Potassium 2.7, replacement given. CHF education reviewed. Low sodium diet and daily weights. Qualifiers: Congestive heart failure chronicity: unspecified congestive heart failure chronicity Qualified Code(s): I50.30 - Unspecified diastolic (congestive) heart failure (2) CAD (coronary artery disease) Current Visit: Yes Status: Chronic H/o prior CABG and PCI. Preserved EF. Continue asa, statin, and bb. Denies chest pain. Very mild troponin in the setting of acute CHF, demand ischemia. Qualifiers: Coronary Disease-Associated Artery/Lesion type: unspecified vessel or lesion type [place] vs. transplanted heart: [place] heart Associated angina: without angina Qualified Code(s): I25.10 - Atherosclerotic heart disease of [place] coronary artery without angina pectoris (3) Atrial fibrillation Current Visit: Yes Status: Chronic H/o chronic afib. Rate controlled on eliquis for AC. Qualifiers: Atrial fibrillation type: persistent Qualified Code(s): I48.1 - Persistent atrial fibrillation Discussion w patient/family: The assessment and plan as outlined above was discussed with the patient and/or family members who expressed understanding and agreement. All questions were answered. Thank you for involving us in the care of your patient. Please call with any questions. History of Present Illness Consult date: 08/14/17 Requesting physician: Garcia Faulkner Consult reason: CHF Chief complaint: SOB, BLE edema, and increasing abdominal girth History of present illness: Ms. Mcdaniels is a 62 year old female with a history of diastolic CHF, atrial fibrillation on eliquis, CABG x 2 and prior cardiac stenting, rheumatic fever, DM, HTN, HLD, carotid artery disease, and chronic angina. She presents with the c/o increasing BLE edema, increasing abdominal girth, and SOB despite home lasix dose. Reports 20 lb weight gain. Symptoms started three days ago. She reports compliance with low sodium intake. Denies missed medications. Hospitalized one month ago for 20 lb weight gain and was given IV lasix. Past Med Surg Social Fam HX - Past Medical History Medical history: atrial fibrillation, CHF, coronary artery disease, hyperlipidemia, hypertension, osteoporosis, other Psychiatric history: depression - Past Surgical History Surgical History: cholecystectomy, coronary bypass (CABG), hysterectomy, other ( bowel surgery) - Social History Smoking Status: Never smoker Smokeless Tobacco Status: No Alcohol use: none Drug use: none - Family History Father Living Status: Hx Family Cardiac Disorders: Yes Mother Adopted: No Family Member Ethnicity: Non- Living Status: Hx Family Cardiac Disorders: Yes ([place]) Hx Family Respiratory Disorders: No Hx Family Cancer: Yes (Bowel Cancer) Hx Family GI Disorders: Yes (Bowel Cancer) Hx Family Endocrine Disorder: Yes (DM) Hx Family Neuromuscular Disorders: No Hx Family Neurologic Disorders: No Hx Family HEENT Disorders: No Hx Family Autoimmune Disorders: No Medications and Allergies Ergocalciferol (VITAMIN D2) [Vitamin D2 (50,000 UNIT)] 50,000 unit PO DAVIS [History] Folic Acid 1 mg PO DAILY 01/11/16 [History] Metoprolol XL (24 HR) Succ [Toprol Xl] 100 mg PO DAILY 01/11/16 [History] Multivitamin/Iron/Folic Acid [Centrum Complete Multivit Tab] 1 tab PO DAILY [History] Nitroglycerin [Nitrostat] 0.4 mg SL Q5M PRN 01/11/16 [History] Simvastatin [Zocor] 20 mg PO HS 01/11/16 [History] Venlafaxine HCl [Effexor Xr] 75 mg PO DAILY 01/11/16 [History] Vitamin E 1,000 units PO DAILY 01/11/16 [History] ALPRAZolam [Xanax 1 MG Tablet] 1 mg PO TID 10/18/16 [History] Oxycodone HCl/Acetaminophen [Percocet 10-325 mg Tablet] 1 tab PO Q6H PRN [History] Lisinopril [Zestril] 40 mg PO DAILY #0 10/21/16 [Rx] Apixaban [Eliquis] 5 mg PO BID 02/23/17 [History] Oxygen 3 l .ROUTE AD 04/06/17 [History] Propylthiouracil 50 mg PO TID #90 tablet 04/09/17 [Rx] Oxycodone HCl [Oxycodone HCl ER] 30 mg PO Q12H PRN 07/15/17 [History] Potassium Chloride [Klor-Con Sprinkle] 10 meq PO BID 07/15/17 [History] Pregabalin [Lyrica] 75 mg PO BID 07/15/17 [History] Aspirin Enteric Coated [Aspirin EC] 81 mg PO DAILY #90 07/18/17 [Rx] Furosemide [Lasix] 40 mg PO BIDWM #0 07/18/17 [Rx] Isosorbide MONOnitrate (24 HR) [Imdur] 120 mg PO DAILY 07/18/17 [Rx] Paroxetine [Paxil] 20 mg PO DAILY tab 07/18/17 [Rx] amLODIPine [Norvasc] 2.5 mg PO DAILY tab 07/18/17 [Rx] 3 Allergy/AdvReac Type Severity Reaction Status Date / Time hydrocodone [From Vicodin] Allergy Swelling Verified 02/23/17 14:36 of Lip/Tongue/Throat All Systems Review: A 10-system review of systems was performed and is negative for pertinent findings except as documented above in the HPI. Physical Examination Vital Signs Temp Pulse Resp BP Pulse Ox 08/14/17 06:30 98.5 F 99 17 144/69 97 08/14/17 03:36 98.5 F 106 17 142/64 96 08/14/17 00:29 98.2 F 88 16 147/73 96 08/13/17 20:33 98.1 F 98 16 155/71 97 08/13/17 17:40 97.4 F L 76 17 154/63 94 08/13/17 15:35 85 18 142/74 100 08/13/17 14:20 84 16 153/85 100 08/13/17 14:05 100 08/13/17 14:00 20 130/98 08/13/17 12:43 97.6 F 100 18 147/51 97 Intake and Output 08/13/17 08/14/17 08/14/17 23:59 07:59 15:59 Intake Total 30 / 30 220 / 220 Output Total 200 / 200 1550 / 1550 1800 / 1800 Balance -170 / -170 -1550 / -1550 -1580 / -1580 Intake: Oral 30 220 / 220 Output: Urine 200 / 200 1550 / 1550 1800 / 1800 Other: Meal Breakfast Percent of Meal Consumed 90% # Voids 2 Weight 55 kg 53.8 kg Blood Glucose* 154 Patient Weight 08/14/17 23:59 Weight 53.8 kg Chest X-Ray 08/13/17 13:21 IMPRESSION: 1. Persistent small bilateral pleural effusions, slightly improved compared to prior exam of 07/15/2017. Persistent bibasilar atelectasis, left side greater than right. It would be difficult to exclude pneumonia at the left base. Continued follow-up recommended. 2. Interval improvement of vascular congestion and interstitial edema. D/ / 08/13/2017 14:08:05 Jackson Gloria MD / [facility] Interpreting Provider: Jackson Gloria MD Echocardiogram 08/13/17 16:41 Impressions: LVEF 60%. Normal left ventricular size and systolic function. Indeterminate left ventricular diastolic function. Normal right ventricular size and function. Mild aortic regurgitation. Mild mitral regurgitation. Mild tricuspid regurgitation. At least mild pulmonary hypertension by TR gradient. IVC is not visualized to estimate RVSP. A pleural effusion is present. Left Ventricular Wall Motion: Rest Echo Findings All wall segments showed normal motion. General: Conversant, No Apparent Distress HEENT: Atraumatic, Normocephaly, Mucus Membranes Moist Neck: No JVD, Normal carotid pulses Cardiac: Reg Rate and Rhythm, Normal S1 and S2, No Murmur Lungs: Normal Breath Sounds, No Wheeze, Rales, Rhonchi Neuro: Alert and responsive, No focal deficits noted Abdomen: Soft, Non-Tender Skin: No rashes noted on visualized skin Musculoskeletal: No Chest Wall Tenderness Extremities: No Clubbing, No Cyanosis, Normal Pulses, Other (1+ BLE edema up to knees) Results 08/14/17 04:15 08/14/17 04:15 Lab Results 08/13/17 08/14/17 08/14/17 21:51 04:15 04:15 WBC 5.5 Hgb 9.6 L Hct 30.9 L Plt Count 136 L Sodium 143 Potassium 2.7 L Chloride 101 Carbon Dioxide 33 H BUN 9 Creatinine 0.46 L Glucose 92 Calcium 8.9 Magnesium 1.2 L Total Bilirubin 2.0 H AST 40 H ALT 27 Alkaline Phosphatase 336 H Troponin I 0.03 B-Natriuretic Peptide 08/14/17 08/14/17 04:15 04:15 WBC Hgb Hct Plt Count Sodium Potassium Chloride Carbon Dioxide BUN Creatinine Glucose Calcium Magnesium Total Bilirubin AST ALT Alkaline Phosphatase Troponin I 0.04 H* B-Natriuretic Peptide 3760 H - Imaging and Cardiology Echo: report reviewed - EKG Interpretation EKG results cardiology: personally reviewed (atrail fibrillation. No acute ST changes.) Consult Discharge Plan - Plan Referrals: Alpa Lee, MEDICAL CARE ADMINISTRATOR [Primary Care Provider] - <Rodrigo Chin - Last Filed: 08/14/17 17:15> Date of Encounter: 08/14/17 Assessment and Plan Discussion w patient/family: The assessment and plan as outlined above was discussed with the patient and/or family members who expressed understanding and agreement. All questions were answered. Thank you for involving us in the care of your patient. Please call with any questions. History of Present Illness History of present illness: Ms. Mcdaniels is a 62 year old female All Systems Review: A 10-system review of systems was performed and is negative for pertinent findings except as documented above in the HPI. Physical Examination Vital Signs, Last 4 Hours Temp Pulse Resp BP Pulse Ox 08/14/17 16:11 98.0 F 75 17 133/69 96 Results 08/14/17 04:15 08/14/17 04:15 Lab Results 08/13/17 08/14/17 08/14/17 21:51 04:15 04:15 WBC 5.5 Hgb 9.6 L Hct 30.9 L Plt Count 136 L Sodium 143 Potassium 2.7 L Chloride 101 Carbon Dioxide 33 H BUN 9 Creatinine 0.46 L Glucose 92 Calcium 8.9 Magnesium 1.2 L Total Bilirubin 2.0 H AST 40 H ALT 27 Alkaline Phosphatase 336 H Troponin I 0.03 B-Natriuretic Peptide 08/14/17 08/14/17 04:15 04:15 WBC Hgb Hct Plt Count Sodium Potassium Chloride Carbon Dioxide BUN Creatinine Glucose Calcium Magnesium Total Bilirubin AST ALT Alkaline Phosphatase Troponin I 0.04 H* B-Natriuretic Peptide 3760 H - Attending Attestation Pt seen and examined independently, chart reviewed, essentially agree with findings above, my evaluation as follows: CC: increasing lower extremity edema HPI: Pt reports three day history of increasing bilateral lower extremity edema , increased abdominal swelling, and reported 20 pound weight gain. Pt reports she is compliant with meds, and with sodium restricted diet. She notes was started on increased home lasix without improvement in lower extremity swelling. She denies palpitations, chest pain, pressure or shortness of breath consistent with previous anginal symptoms. PE: Agree with findings as listed IMP/Plan: 1. Acute decompensated Diastolic Congestive heart failure, slowly responding to increased IV lasix, added Zaroxyln 5 mg q d, continue to monitor I&o, daily weights. 2. Hypertension: not well controlled, may benefit by increasing lisinopril to 40 mg bid, discontinue Amlodipine 3. A fib, chronic, appears adequate rate control, on systemic anticoagulation with Apixiban for primary stroke risk reduction. 4. CAD - severe three vessel CAD, post CABG, no recurrence of anginal symptoms, well preserved EF @ 60Pulmonary hy%, no new wall motion abnormalities to suggest recent NE, continue current tx. 5. Pulmonary hypertension, by echo, concerned may have hypoxic component, will order nocturnal pulse oximety to screen for SRUTHI when C HF better compensated.
[2017-08-14] MEDS: *HR* OxyCODONE/APAP 10/325 TABLET PO PRN ×2 (17:45→23:53)
[2017-08-14] MEDS: Magnesium Sulfate 2 GM in D5% in Water 100 ML IVPB SCH ×2 (17:45→19:22)
--- NOTE | 2017-08-14 19:04 | Electrocardiograph Report ---
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
[2017-08-14] MEDS: Metoprolol XL (24 HR) Succ 50 MG TAB.ER.24H PO SCH (21:15)
[2017-08-15] MEDS: Multivit/Ca/Min/Fe/FA 1 TAB TABLET PO SCH (08:11)
[2017-08-15] MEDS: Metoprolol XL (24 HR) Succ 50 MG TAB.ER.24H PO SCH ×2 (08:11→21:23)
[2017-08-15] MEDS: Aspirin Enteric Coated 81 MG Tablet PO SCH (08:11)
[2017-08-15] MEDS: metOLazone 2.5 MG TABLET PO SCH (08:11)
[2017-08-15] MEDS: Folic Acid 1 MG TABLET PO SCH (08:11)
[2017-08-15] MEDS: APIXABAN 5 MG TABLET PO SCH ×2 (08:11→21:23)
[2017-08-15] MEDS: Lisinopril 20 MG TABLET PO SCH (08:11)
[2017-08-15] MEDS: Pregabalin 75 MG CAPSULE PO SCH ×2 (08:12→21:23)
[2017-08-15] MEDS: Isosorbide MONOnitrate (24 HR) 60 MG TAB.ER.24H PO SCH (08:12)
[2017-08-15] MEDS: Venlafaxine XR (24 HR) 75 MG CAP.ER.24H PO SCH (08:12)
[2017-08-15] MEDS: Furosemide 40 MG/4 ML VIAL IVP SCH (08:12)
--- NOTE | 2017-08-15 09:45 | Cardiology Progress Note ---
Date of Encounter: 08/15/17 Time of Encounter: 08:30 Assessment and Plan (1) Diastolic congestive heart failure, NYHA class 3 Current Visit: No Status: Suspected Per cardiology: -Acute on chronic HFpEF. TTE completed shows LVEF 60%. Normal left ventricular size and systolic function. Indeterminate left ventricular diastolic function. Normal right ventricular size and function. Mild aortic regurgitation. Mild mitral regurgitation. Mild tricuspid regurgitation. At least mild pulmonary hypertension by TR gradient. IVC is not visualized to estimate RVSP. A pleural effusion is present. -Indeterminate diastolic dysfunction d/t atrial fibrillation. -BNP 4069. CXR shows-Persistent small bilateral pleural effusions, slightly improved compared to prior exam of 07/15/2017. Persistent bibasilar atelectasis , left side greater than right. It would be difficult to exclude pneumonia at the left base. Continued follow-up recommended. 2. Interval improvement of vascular congestion and interstitial edema. -Agree with IV lasix. On lasix 40 mg IV q8HR. Zaroxolyn added. Net negative 4160. Symptoms improving. -Potassium 2.7 yesterday, replacement given. Labs pending for today. -CHF education reviewed. -Low sodium diet and daily weights. -Will hold zaroxyln today. Will continue IV lasix. -Will continue to monitor. Qualifiers: Congestive heart failure chronicity: unspecified congestive heart failure chronicity Qualified Code(s): I50.30 - Unspecified diastolic (congestive) heart failure (2) Elevated troponin Current Visit: Yes Status: Acute Per cardiology: -Troponins elevated at 0.06, 0.03, 0.04. -Troponins flat and adynamic in the setting of CHF. -Denies chest pain. -TTE with LVEf 60%. -ECG with no ischemic changes. -DO not suspect NSTEMI, suspect demand ischemia related to CHF. NO cardiac rehab warranted at this time. (3) Atrial fibrillation Current Visit: Yes Status: Chronic Per cardiology: -H/o chronic afib. Rate controlled on eliquis for AC. -Will continue to monitor. Qualifiers: Atrial fibrillation type: persistent Qualified Code(s): I48.1 - Persistent atrial fibrillation (4) CAD (coronary artery disease) Current Visit: Yes Status: Chronic Per cardiology: -H/o prior CABG and PCI. Preserved EF. -Continue asa, statin, and bb. -Denies chest pain. -Very mild troponin in the setting of acute CHF, demand ischemia. -Will continue to monitor. Qualifiers: Coronary Disease-Associated Artery/Lesion type: unspecified vessel or lesion type [place] vs. transplanted heart: [place] heart Associated angina: without angina Qualified Code(s): I25.10 - Atherosclerotic heart disease of [place] coronary artery without angina pectoris Discussion w patient/family: The assessment and plan as outlined above was discussed with the patient who expressed understanding and agreement. All questions were answered. Thank you for involving us in the care of your patient. Please call with any questions. Discussed and reviewed with . Subjective Principal diagnosis: Diastolic CHF Interval history: Patient reports shortness of breath and edema is improved today. Objective Vital Signs, Last 4 Hours Temp Pulse Resp BP Pulse Ox 08/15/17 07:37 98.4 F 66 18 124/62 95 08/15/17 05:43 97.7 F 61 16 109/55 93 General: Conversant, No Apparent Distress HEENT: Atraumatic, Normocephaly Neck: No JVD, Normal carotid pulses Cardiac: Normal S1 and S2, No Murmur, Other (Irregularly irregular) Lungs: Normal Breath Sounds, No Wheeze, Rales, Rhonchi Neuro: Alert and responsive, No focal deficits noted Abdomen: Soft, Non-Tender Skin: No rashes noted on visualized skin Musculoskeletal: No Chest Wall Tenderness Extremities: No Clubbing, No Cyanosis, Normal Pulses, Other (1+ bilateral lower extremity pitting edema. Right slightly worse than left. ) Results 08/14/17 04:15 08/14/17 04:15 Active Medications Acetaminophen (Tylenol) 650 mg PO Q6HR PRN PRN Reason: Mild Pain (1-3) Stop: 02/12/18 16:29 Last Admin: 08/14/17 09:18 Dose: 650 mg Alprazolam (Xanax) 1 mg PO TID PRN; Protocol PRN Reason: Anxiety Stop: 02/12/18 16:33 Apixaban (Eliquis) 5 mg PO BID [facility] Stop: 02/12/18 21:01 Last Admin: 08/15/17 08:11 Dose: 5 mg Aspirin (Aspirin Ec) 81 mg PO DAILY [facility] Stop: 02/13/18 09:01 Last Admin: 08/15/17 08:11 Dose: 81 mg Docusate Sodium (Colace) 100 mg PO BID PRN PRN Reason: Constipation Stop: 02/12/18 16:29 Ergocalciferol (Drisdol (50,000 Unit)) 50,000 unit PO DAVIS [facility] Stop: 02/18/18 17:01 Folic Acid (Folic Acid) 1 mg PO DAILY [facility] Stop: 02/13/18 09:01 Last Admin: 08/15/17 08:11 Dose: 1 mg Furosemide (Lasix) 40 mg IVP Q8HR [facility] Stop: 02/13/18 00:01 Last Admin: 08/15/17 08:12 Dose: 40 mg Isosorbide Mononitrate (Imdur) 120 mg PO DAILY [facility] Stop: 02/13/18 09:01 Last Admin: 08/15/17 08:12 Dose: 120 mg Lisinopril (Zestril) 40 mg PO DAILY [facility] Stop: 02/13/18 09:01 Last Admin: 08/15/17 08:11 Dose: 40 mg Metolazone (Zaroxolyn) 2.5 mg PO DAILY [facility] Stop: 02/12/18 16:46 Last Admin: 08/15/17 08:11 Dose: 2.5 mg Metoprolol Succinate (Toprol Xl) 100 mg PO BID [facility] Stop: 02/13/18 21:01 Last Admin: 08/15/17 08:11 Dose: 100 mg Multivitamins/Calcium (Thera M Plus) 1 tab PO DAILY [facility] Stop: 02/13/18 09:01 Last Admin: 08/15/17 08:11 Dose: 1 tab Naloxone HCl (Narcan) 0.4 mg IVP Q2MIN PRN PRN Reason: Opioid Reversal Stop: 02/12/18 16:29 Ondansetron HCl (Zofran) 4 mg IVP Q6HR PRN PRN Reason: Nausea And Vomiting Stop: 02/12/18 16:29 Oxycodone/Acetaminophen (Percocet 10/325) 1 each PO Q6HR PRN PRN Reason: Severe Pain (7-10) Stop: 02/13/18 15:49 Last Admin: 08/14/17 23:53 Dose: 1 each Paroxetine HCl (Paxil) 20 mg PO DAILY [facility] PRN Reason: Protocol Stop: 02/13/18 09:01 Last Admin: 08/15/17 08:11 Dose: 20 mg Potassium Chloride (Potassium Chloride) 10 meq PO BID [facility] Stop: 02/12/18 21:01 Last Admin: 08/15/17 08:11 Dose: 10 meq Pregabalin (Lyrica) 75 mg PO BID [facility] Stop: 02/12/18 21:01 Last Admin: 08/15/17 08:12 Dose: 75 mg Promethazine HCl (Phenergan) 12.5 mg IVP Q6HR PRN PRN Reason: Nausea And Vomiting Stop: 02/12/18 16:29 Propylthiouracil (Propylthiouracil) 50 mg PO TID [facility] Stop: 02/12/18 21:01 Last Admin: 08/15/17 08:11 Dose: 50 mg Simvastatin (Zocor) 20 mg PO HS [facility] PRN Reason: Protocol Stop: 02/12/18 21:01 Last Admin: 08/14/17 21:15 Dose: 20 mg Venlafaxine HCl (Effexor Xr) 75 mg PO DAILY [facility] Stop: 02/13/18 09:01 Last Admin: 08/15/17 08:12 Dose: 75 mg Vitamin E (Vitamin E) 1,000 unit PO DAILY [facility] Stop: 02/13/18 09:01 Last Admin: 08/15/17 08:11 Dose: 1,000 unit Laboratory Tests 08/13/17 08/13/17 08/14/17 13:45 21:51 04:15 Hgb 9.6 L Potassium Creatinine Troponin I 0.06 H* 0.03 08/14/17 08/14/17 04:15 04:15 Hgb Potassium 2.7 L Creatinine 0.46 L Troponin I 0.04 H* - Imaging and Cardiology Chest Xray: report reviewed Echo: report reviewed - EKG Interpretation EKG results cardiology: personally reviewed (ECG with atrial fibrillation, HR 83.), other (Telemetry reviewed with average HR previous 12 hours 69, atrial fibrillation. PVCs and PACs noted.) Consult Discharge Plan - Plan Referrals: Alpa Lee, [facility] [facility]ER [Primary Care Provider] -
[2017-08-15 12:08] LABS: Alanine Aminotransferase 22 Units/L (0-55); Albumin 2.2 g/dL (3.5-5.0); Albumin/Globulin Ratio 0.5 (1.1-2.2); Alkaline Phosphatase 308 Units/L (38-126); Aspartate Amino Transferase 34 Units/L (5-34); BUN/Creatinine Ratio 24 (6-26); Blood Urea Nitrogen 11 mg/dL (7-20); Calcium 8.7 mg/dL (8.6-10.8); Chloride 94 mEq/L (98-109); Globulin 4.4 g/dL (2.4-3.5); Glucose 112 mg/dL (70-99); Magnesium 1.5 mg/dL (1.6-2.6); Osmolality,Calculated 290 (280-300); Potassium 3.2 mEq/L (3.5-4.5); Sodium 140 mEq/L (136-145); Total Protein 6.6 g/dL (6.0-8.3); eGFR For African Americans > 60 (> 60); eGFR For Non-African Americans > 60 (> 60)
[2017-08-15 12:11] LABS: Carbon Dioxide 41 mEq/L (19-29)
[2017-08-15] MEDS: *HR* OxyCODONE/APAP 10/325 TABLET PO PRN ×2 (12:52→21:37)
[2017-08-15] MEDS ORDERED: Magnesium Sulfate 2 GM in D5% in Water 100 ML IVPB ONE (14:56)
--- NOTE | 2017-08-15 15:10 | Internal Med Progress Note ---
Date of Encounter: 08/15/17 Time of Encounter: 15:04 - Assessment and plan (1) Hypokalemia Current Visit: Yes Status: Acute (2) Diastolic CHF, acute on chronic Current Visit: Yes Status: Acute (3) Hypomagnesemia Current Visit: Yes Status: Acute (4) Atrial fibrillation Current Visit: Yes Status: Chronic Qualifiers: Atrial fibrillation type: persistent Qualified Code(s): I48.1 - Persistent atrial fibrillation (5) CAD (coronary artery disease) Current Visit: Yes Status: Chronic Qualifiers: Coronary Disease-Associated Artery/Lesion type: unspecified vessel or lesion type [place] vs. transplanted heart: [place] heart Associated angina: without angina Qualified Code(s): I25.10 - Atherosclerotic heart disease of [place] coronary artery without angina pectoris (6) HTN (hypertension) Current Visit: Yes Status: Chronic Qualifiers: Hypertension type: essential hypertension Qualified Code(s): I10 - Essential (primary) hypertension (7) Diabetes Current Visit: Yes Status: Chronic Qualifiers: Diabetes mellitus type: type 2 Diabetes mellitus complication status: with unspecified complications Diabetes mellitus [facility] insulin use: without termination clerk use Qualified Code(s): E11.8 - Type 2 diabetes mellitus with unspecified complications (8) COPD (chronic obstructive pulmonary disease) Current Visit: Yes Status: Chronic Qualifiers: COPD type: unspecified COPD Qualified Code(s): J44.9 - Chronic obstructive pulmonary disease, unspecified - Subjective Interval history: Hx: Ms. Mcdaniels is a 62 year old female with history of diastolic congestive heart failure, Chronic Afib on Eliquis for anticoagulation, HTN, HLD came to ER complaining of progressively worsening shortness of breath and bilateral lower extremity swelling that has been ongoing over the course of the past 3-4 days. Patient is seen today and discuss an PCR and labs reviewed. Will we were planning to discharge the patient when patient started complaining of blurring of vision. No headache, focal numbness or weakness. Her beta delfino was increased 100 twice a day yesterday. Order CT head to rule out bleed as patient is on blood thinner #1 acute diastolic congestive heart failure. Echocardiogram shows EF about 60% with diastolic dysfunction but no significant valvular abnormality. Patient is on IV Lasix and Zaroxolyn and has been diuresing very well. However now bicarbonate has started going up therefore we will DC Zaroxolyn but continue IV Lasix. Check BNP and BMP. #2 hypokalemia and hypomagnesemia supplement both and recheck in the morning. #3 chronic atrial fibrillation heart rate close to 100 patient on Eliquis. Metoprolol increased 200 twice a day and now heart rate is close to 60. Blood pressure is borderline. Reduce metoprolol 75 twice a day. #4 diabetes Accu-Chek 4 times a day with sliding scale coverage - Constitutional Vitals: Temp Pulse Resp BP Pulse Ox 98.3 F 63 18 94/54 95 08/15/17 11:41 08/15/17 11:41 08/15/17 11:41 08/15/17 14:49 08/15/17 11:41 General appearance: Present: A&O X 3, pleasant, answers questions appropriately - Head Head exam: Present: atraumatic, normocephalic - Eye Eye exam: Present: PERRL, conjuntiva pink, sclera anicteric Pupils: Present: PERRL - Neck Neck exam general surgery: Present: supple, trachea midline. Absent: lymphadenopathy - Respiratory Respiratory exam: Present: CTAB. Absent: accessory muscle use, rales, rhonchi, wheezes - Cardiovascular Cardiovascular exam: Present: irregular rhythm, +S1, +S2. Absent: diastolic murmur, gallop, rubs, systolic murmur - GI/Abdominal GI/Abdominal exam: Present: normal bowel sounds, soft, no peritoneal signs. Absent: distended, tenderness - Extremities Exam Extremities exam: Present: warm, radial pulses palpable and symmetrical. Absent : calf tenderness, cyanotic, pedal edema - Neurological Exam Neurological exam: Present: CN II-XII intact, oriented X3, no focal deficits. Absent: pronater drift, facial droop, speech deficit - Skin Skin exam: Present: dry, intact Internal Medicine: Result - Labs CBC & Chem 7: 08/14/17 04:15 08/15/17 11:36 Labs: BMP 08/15/17 11:36 Sodium 140 Potassium 3.2 L Chloride 94 L Carbon Dioxide 41 H* BUN 11 Creatinine 0.45 L Glucose 112 H Calcium 8.7 Liver Function 08/15/17 Range/Units 11:36 Total Bilirubin 1.0 (0.2-1.2) mg/dL AST 34 (5-34) Units/L ALT 22 (0-55) Units/L Alkaline Phosphatase 308 H (38-126) Units/L Albumin 2.2 L (3.5-5.0) g/dL Consult Discharge Plan - Plan Referrals: Alpa Lee CNP [Primary Care Provider] - (web request sent on 08/15/17)
[2017-08-15] MEDS ORDERED: Furosemide 40 MG TABLET PO SCH (17:00)
[2017-08-15] MEDS: Furosemide 40 MG TABLET PO SCH (17:10)
[2017-08-16 04:06] LABS: Basophils % 0.3 %; Eosinophils # 0.1 K/mcL (0.0-0.6); Eosinophils % 1.9 %; Hematocrit 30.9 % (35.3-44.9); Hemoglobin 9.3 g/dL (11.5-15.4); Immature Granulocytes % 0.3 % (0-4); Lymphocytes # 1.3 K/mcL (0.6-4.6); Lymphocytes % 34.9 %; Mean Corpuscular HGB Conc 30.1 g/dL (31.6-35.5); Mean Corpuscular Volume 83.1 fL (83.0-100.0); Monocytes # 0.4 K/mcL (0.0-1.3); Monocytes % 10.2 %; Platelet Count 118 K/mcL (140-400); Red Blood Count 3.72 M/mcL (3.82-4.97); Red Cell Distribution Width 16.3 % (11.5-14.5); Segmented Neutrophils % 52.4 %
[2017-08-16 04:15] LABS: Alanine Aminotransferase 20 Units/L (0-55); Albumin 2.1 g/dL (3.5-5.0); Albumin/Globulin Ratio 0.6 (1.1-2.2); Alkaline Phosphatase 261 Units/L (38-126); Aspartate Amino Transferase 29 Units/L (5-34); BUN/Creatinine Ratio 42 (6-26); Bilirubin,Total 0.9 mg/dL (0.2-1.2); Blood Urea Nitrogen 20 mg/dL (7-20); Calcium 8.5 mg/dL (8.6-10.8); Carbon Dioxide 37 mEq/L (19-29); Chloride 98 mEq/L (98-109); Globulin 3.8 g/dL (2.4-3.5); Glucose 88 mg/dL (70-99); Magnesium 1.9 mg/dL (1.6-2.6); Osmolality,Calculated 298 (280-300); Potassium 3.4 mEq/L (3.5-4.5); Sodium 143 mEq/L (136-145); Total Protein 5.9 g/dL (6.0-8.3); eGFR For African Americans > 60 (> 60); eGFR For Non-African Americans > 60 (> 60)
[2017-08-16] MEDS: APIXABAN 5 MG TABLET PO SCH (09:23)
[2017-08-16] MEDS: *HR* OxyCODONE/APAP 10/325 TABLET PO PRN (09:23)
[2017-08-16] MEDS: Aspirin Enteric Coated 81 MG Tablet PO SCH (09:24)
[2017-08-16] MEDS: Multivit/Ca/Min/Fe/FA 1 TAB TABLET PO SCH (09:24)
[2017-08-16] MEDS: Furosemide 40 MG TABLET PO SCH (09:24)
[2017-08-16] MEDS: Isosorbide MONOnitrate (24 HR) 60 MG TAB.ER.24H PO SCH (09:24)
[2017-08-16] MEDS: Folic Acid 1 MG TABLET PO SCH (09:24)
[2017-08-16] MEDS: Metoprolol XL (24 HR) Succ 50 MG TAB.ER.24H PO SCH (09:24)
[2017-08-16] MEDS: Pregabalin 75 MG CAPSULE PO SCH (09:24)
[2017-08-16] MEDS: Venlafaxine XR (24 HR) 75 MG CAP.ER.24H PO SCH (09:24)
--- NOTE | 2017-08-16 09:26 | Cardiology Progress Note ---
Date of Encounter: 08/16/17 Time of Encounter: 08:30 Assessment and Plan (1) Diastolic congestive heart failure, NYHA class 3 Current Visit: No Status: Suspected Per cardiology: -Acute on chronic HFpEF. TTE completed shows LVEF 60%. Normal left ventricular size and systolic function. Indeterminate left ventricular diastolic function. Normal right ventricular size and function. Mild aortic regurgitation. Mild mitral regurgitation. Mild tricuspid regurgitation. At least mild pulmonary hypertension by TR gradient. IVC is not visualized to estimate RVSP. A pleural effusion is present. -Indeterminate diastolic dysfunction d/t atrial fibrillation. -BNP 4069. CXR shows-Persistent small bilateral pleural effusions, slightly improved compared to prior exam of 07/15/2017. Persistent bibasilar atelectasis , left side greater than right. It would be difficult to exclude pneumonia at the left base. Continued follow-up recommended. 2. Interval improvement of vascular congestion and interstitial edema. -On lasix 40mg BID. Net negative 4550ml. -Potassium 3.4, on po potassium. -CHF education reviewed, patient states understanding. -Low sodium diet and daily weights. -Cardiology will sign off and will follow in outpatient setting. Follow up set. Patient educated on importance of close cardiology follow up. Qualifiers: Congestive heart failure chronicity: unspecified congestive heart failure chronicity Qualified Code(s): I50.30 - Unspecified diastolic (congestive) heart failure (2) Elevated troponin Current Visit: Yes Status: Acute Per cardiology: -Troponins elevated at 0.06, 0.03, 0.04. -Troponins flat and adynamic in the setting of CHF. -Denies chest pain. -TTE with LVEf 60%. -ECG with no ischemic changes. -DO not suspect NSTEMI, suspect demand ischemia related to CHF. NO cardiac rehab warranted at this time. (3) Atrial fibrillation Current Visit: Yes Status: Chronic Per cardiology: -H/o chronic afib. Rate controlled on eliquis for AC. -Will continue to monitor in outpatient setting. Qualifiers: Atrial fibrillation type: persistent Qualified Code(s): I48.1 - Persistent atrial fibrillation (4) CAD (coronary artery disease) Current Visit: Yes Status: Chronic Per cardiology: -H/o prior CABG and PCI. Preserved EF. -Continue asa, statin, and bb. -Denies chest pain. -Very mild troponin in the setting of acute CHF, demand ischemia. -Will continue to monitor in outpatient setting. Qualifiers: Coronary Disease-Associated Artery/Lesion type: unspecified vessel or lesion type [place] vs. transplanted heart: [place] heart Associated angina: without angina Qualified Code(s): I25.10 - Atherosclerotic heart disease of [place] coronary artery without angina pectoris Discussion w patient/family: The assessment and plan as outlined above was discussed with the patient who expressed understanding and agreement. All questions were answered. Thank you for involving us in the care of your patient. Please call with any questions. Discussed and reviewed with . Subjective Principal diagnosis: Diastolic CHF Interval history: Patient reports shortness of breath and edema is improved today. Patient states she is ready to go home today. Objective Vital Signs, Last 4 Hours Temp Pulse Resp BP Pulse Ox 08/16/17 09:10 70 112/63 08/16/17 06:33 97.6 F 56 16 104/62 99 General: Conversant, No Apparent Distress HEENT: Atraumatic, Normocephaly, Mucus Membranes Moist Neck: No JVD, Normal carotid pulses Cardiac: Normal S1 and S2, No Murmur, Other (Irregularly, irregular) Lungs: Normal Breath Sounds, No Wheeze, Rales, Rhonchi Neuro: Alert and responsive, No focal deficits noted Abdomen: Soft, Non-Tender Skin: No rashes noted on visualized skin Musculoskeletal: No Chest Wall Tenderness Extremities: No Clubbing, No Cyanosis, Normal Pulses, Other (Mild bilateral pedal edema, non-pitting. ) Results 08/16/17 03:46 08/16/17 03:46 Lab Results Impressions Head CT 08/15/17 15:03 IMPRESSION: No acute intracranial abnormality. D/ / Mina Foss MD / Mina Foss MD Interpreting Provider: Mina Foss MD Active Medications Acetaminophen (Tylenol) 650 mg PO Q6HR PRN PRN Reason: Mild Pain (1-3) Stop: 02/12/18 16:29 Last Admin: 08/14/17 09:18 Dose: 650 mg Alprazolam (Xanax) 1 mg PO TID PRN; Protocol PRN Reason: Anxiety Stop: 02/12/18 16:33 Apixaban (Eliquis) 5 mg PO BID [facility] Stop: 02/12/18 21:01 Last Admin: 08/15/17 21:23 Dose: 5 mg Aspirin (Aspirin Ec) 81 mg PO DAILY [facility] Stop: 02/13/18 09:01 Last Admin: 08/15/17 08:11 Dose: 81 mg Docusate Sodium (Colace) 100 mg PO BID PRN PRN Reason: Constipation Stop: 02/12/18 16:29 Ergocalciferol (Drisdol (50,000 Unit)) 50,000 unit PO DAVIS [facility] Stop: 02/18/18 17:01 Folic Acid (Folic Acid) 1 mg PO DAILY [facility] Stop: 02/13/18 09:01 Last Admin: 08/15/17 08:11 Dose: 1 mg Furosemide (Lasix) 40 mg PO BIDDIURETIC [facility] Stop: 02/14/18 17:01 Last Admin: 08/15/17 17:10 Dose: 40 mg Isosorbide Mononitrate (Imdur) 120 mg PO DAILY [facility] Stop: 02/13/18 09:01 Last Admin: 08/15/17 08:12 Dose: 120 mg Lisinopril (Zestril) 40 mg PO DAILY [facility] Stop: 02/13/18 09:01 Last Admin: 08/15/17 08:11 Dose: 40 mg Metoprolol Succinate (Toprol Xl) 75 mg PO BID [facility] Stop: 02/14/18 21:01 Last Admin: 08/15/17 21:23 Dose: 75 mg Multivitamins/Calcium (Thera M Plus) 1 tab PO DAILY [facility] Stop: 02/13/18 09:01 Last Admin: 08/15/17 08:11 Dose: 1 tab Naloxone HCl (Narcan) 0.4 mg IVP Q2MIN PRN PRN Reason: Opioid Reversal Stop: 02/12/18 16:29 Ondansetron HCl (Zofran) 4 mg IVP Q6HR PRN PRN Reason: Nausea And Vomiting Stop: 02/12/18 16:29 Oxycodone/Acetaminophen (Percocet 10/325) 1 each PO Q6HR PRN PRN Reason: Severe Pain (7-10) Stop: 02/13/18 15:49 Last Admin: 08/15/17 21:37 Dose: 1 each Paroxetine HCl (Paxil) 20 mg PO DAILY [facility] PRN Reason: Protocol Stop: 02/13/18 09:01 Last Admin: 08/15/17 08:11 Dose: 20 mg Potassium Chloride (Potassium Chloride) 10 meq PO BID [facility] Stop: 02/12/18 21:01 Last Admin: 08/15/17 21:23 Dose: 10 meq Pregabalin (Lyrica) 75 mg PO BID [facility] Stop: 02/12/18 21:01 Last Admin: 08/15/17 21:23 Dose: 75 mg Promethazine HCl (Phenergan) 12.5 mg IVP Q6HR PRN PRN Reason: Nausea And Vomiting Stop: 02/12/18 16:29 Propylthiouracil (Propylthiouracil) 50 mg PO TID [facility] Stop: 02/12/18 21:01 Last Admin: 08/15/17 21:23 Dose: 50 mg Simvastatin (Zocor) 20 mg PO HS [facility] PRN Reason: Protocol Stop: 02/12/18 21:01 Last Admin: 08/15/17 21:23 Dose: 20 mg Venlafaxine HCl (Effexor Xr) 75 mg PO DAILY [facility] Stop: 02/13/18 09:01 Last Admin: 08/15/17 08:12 Dose: 75 mg Vitamin E (Vitamin E) 1,000 unit PO DAILY [facility] Stop: 02/13/18 09:01 Last Admin: 08/15/17 08:11 Dose: 1,000 unit Laboratory Tests 08/16/17 08/16/17 03:46 03:46 Hgb 9.3 L Potassium 3.4 L Creatinine 0.48 L Magnesium 1.9 - Imaging and Cardiology Chest Xray: report reviewed Echo: report reviewed - EKG Interpretation EKG results cardiology: other (Telemetry reviewed with average HR 61, sinus rhythm with intermittent atrial fibrilaltion.) Consult Discharge Plan - Plan Referrals: Alpa Lee, CANDLE WICKER [Primary Care Provider] - (web request sent on 08/15/17)
[2017-08-16] MEDS: Lisinopril 20 MG TABLET PO SCH (09:27)
--- NOTE | 2017-08-16 13:26 | Discharge Summary ---
Date of Encounter: 08/16/17 Time of Encounter: 13:21 - Discharge Diagnosis (1) Diastolic CHF, acute on chronic Priority: Primary Status: Acute (2) Hypokalemia Priority: Secondary Status: Acute (3) Hypomagnesemia Priority: Secondary Status: Acute (4) Atrial fibrillation Priority: Secondary Status: Chronic Qualifiers: Atrial fibrillation type: persistent Qualified Code(s): I48.1 - Persistent atrial fibrillation (5) CAD (coronary artery disease) Priority: Secondary Status: Chronic Qualifiers: Coronary Disease-Associated Artery/Lesion type: unspecified vessel or lesion type [place] vs. transplanted heart: [place] heart Associated angina: without angina Qualified Code(s): I25.10 - Atherosclerotic heart disease of [place] coronary artery without angina pectoris (6) HTN (hypertension) Priority: Secondary Status: Chronic Qualifiers: Hypertension type: essential hypertension Qualified Code(s): I10 - Essential (primary) hypertension (7) Diabetes Priority: Secondary Status: Chronic Qualifiers: Diabetes mellitus type: type 2 Diabetes mellitus complication status: with unspecified complications Diabetes mellitus fdc insulin use: without continuous churn buttermaker use Qualified Code(s): E11.8 - Type 2 diabetes mellitus with unspecified complications (8) COPD (chronic obstructive pulmonary disease) Priority: Secondary Status: Chronic Qualifiers: COPD type: unspecified COPD Qualified Code(s): J44.9 - Chronic obstructive pulmonary disease, unspecified (9) Hyperthyroidism Priority: Secondary Status: Acute (10) Hx of CABG Priority: Secondary Status: Chronic - Discharge Medications Prescriptions: Loperamide [Imodium] 2 mg PO Q4HR PRN #30 capsule PRN Reason: Diarrhea Amoxicillin/Clavulanate [Augmentin] 875 mg PO BIDWM #28 tablet Metoprolol XL (24 HR) Succ [Toprol Xl] 75 mg PO BID #60 tab.er.24h Home Medications: Ergocalciferol (VITAMIN D2) [Vitamin D2 (50,000 UNIT)] 50,000 unit PO DAVIS [History] Folic Acid 1 mg PO DAILY 01/11/16 [History] Multivitamin/Iron/Folic Acid [Centrum Complete Multivit Tab] 1 tab PO DAILY [History] Nitroglycerin [Nitrostat] 0.4 mg SL Q5M PRN 01/11/16 [History] Simvastatin [Zocor] 20 mg PO HS 01/11/16 [History] Venlafaxine HCl [Effexor Xr] 75 mg PO DAILY 01/11/16 [History] Vitamin E 1,000 units PO DAILY 01/11/16 [History] ALPRAZolam [Xanax 1 MG Tablet] 1 mg PO TID 10/18/16 [History] Oxycodone HCl/Acetaminophen [Percocet 10-325 mg Tablet] 1 tab PO Q6H PRN [History] Lisinopril [Zestril] 40 mg PO DAILY #0 10/21/16 [Rx] Apixaban [Eliquis] 5 mg PO BID 02/23/17 [History] Oxygen 3 l .ROUTE AD 04/06/17 [History] Propylthiouracil 50 mg PO TID #90 tablet 04/09/17 [Rx] Oxycodone HCl [Oxycodone HCl ER] 30 mg PO Q12H PRN 07/15/17 [History] Potassium Chloride [Klor-Con Sprinkle] 10 meq PO BID 07/15/17 [History] Pregabalin [Lyrica] 75 mg PO BID 07/15/17 [History] Aspirin Enteric Coated [Aspirin EC] 81 mg PO DAILY #90 07/18/17 [Rx] Furosemide [Lasix] 40 mg PO BIDWM #0 07/18/17 [Rx] Isosorbide MONOnitrate (24 HR) [Imdur] 120 mg PO DAILY 07/18/17 [Rx] Paroxetine [Paxil] 20 mg PO DAILY tab 07/18/17 [Rx] amLODIPine [Norvasc] 2.5 mg PO DAILY tab 07/18/17 [Rx] Amoxicillin/Clavulanate [Augmentin] 875 mg PO BIDWM #28 tablet 08/16/17 [Rx] Loperamide [Imodium] 2 mg PO Q4HR PRN #30 capsule 08/16/17 [Rx] Metoprolol XL (24 HR) Succ [Toprol Xl] 75 mg PO BID #60 tab.er.24h 08/16/17 [Rx] Allergies/Adverse Reactions: 3 Allergy/AdvReac Type Severity Reaction Status Date / Time hydrocodone [From Vicodin] Allergy Swelling Verified 02/23/17 14:36 of Lip/Tongue/Throat Procedures/tests Complete & Pending: Procedures Performed prior 72 hours Category Date Time Status CT head/brain wo con [CT] Stat Cat Scan 08/15/17 15:03 Completed Date of admission: 08/13/17 16:50 Primary care physician: Alpa Lee CNP Discharging clinician: Garcia Faulkner Anticipated date of discharge: 08/16/17 - Patient Status Disposition: Home, Self-Care Condition: Undetermined Functional capacity at discharge: independent ambulation Overall status at discharge: patient is progressing back to baseline - Discharge Instructions Follow Up With: Alpa Lee CNP [Primary Care Provider] - 08/22/17 4:00 pm () - Diet and Activity Activity: resume usual activities as tolerated Diet: advance to your usual diet Hospital course: Hx: Ms. Mcdaniels is a 62 year old female with history of diastolic congestive heart failure, Chronic Afib on Eliquis for anticoagulation, HTN, HLD came to ER complaining of progressively worsening shortness of breath and bilateral lower extremity swelling that has been ongoing over the course of the past 3-4 days. Patient is seen today and discuss an PCR and labs reviewed. Will we were planning to discharge the patient when patient started complaining of blurring of vision. No headache, focal numbness or weakness. Her beta delfino was increased 100 twice a day yesterday. Order CT head to rule out bleed as patient is on blood thinner #1 acute diastolic congestive heart failure. Echocardiogram shows EF about 60% with diastolic dysfunction but no significant valvular abnormality. Patient is on IV Lasix and Zaroxolyn and has been diuresing very well. However now bicarbonate has started going up therefore we will DC Zaroxolyn but continue by mouth Lasix. . #2 hypokalemia and hypomagnesemia corrected. #3 chronic atrial fibrillation heart rate close to 100 patient on Eliquis. Metoprolol increased 200 twice a day and now heart rate is close to 60. Blood pressure is borderline. Reduce metoprolol 75 twice a day. #4 diabetes Accu-Chek 4 times a day with sliding scale coverage #5 chronic diarrhea/hyper thyroidism: Patient has been having chronic diarrhea since January. She was diagnosed with hyper thyroidism and has seen shift stacker as outpatient and currently she is on PTU treatment. I have advised her to return to her shift stacker as soon as possible and have thyroid reevaluated. She will continue her potassium supplementation with Imodium which will be restarted. #6 she has bilateral atelectasis at the bases and clinically she does she looks much better afebrile with normal white count little bit concerned if she has pneumonia and therefore I will add oral antibiotics and see if she improves. She will need follow-up chest x-ray in 6 weeks. We have asked her to request her family doctor to arrange it as outpatient. - Time Spent with Patient Total time spent providing and/or coordinating discharge services: - Constitutional Vitals: Temp Pulse Resp BP Pulse Ox 97.6 F 70 16 112/63 99 08/16/17 06:33 08/16/17 09:10 08/16/17 06:33 08/16/17 09:10 08/16/17 06:33 General appearance: Present: A&O X 3, pleasant, answers questions appropriately - Head Head exam: Present: atraumatic, normocephalic - Eye Eye exam: Present: PERRL, conjuntiva pink, sclera anicteric Pupils: Present: PERRL - Neck Neck exam general surgery: Present: supple, trachea midline. Absent: lymphadenopathy - Respiratory Respiratory exam: Present: CTAB. Absent: accessory muscle use, rales, rhonchi, wheezes - Cardiovascular Cardiovascular exam: Present: RRR, +S1, +S2. Absent: diastolic murmur, gallop, rubs, systolic murmur - GI/Abdominal GI/Abdominal exam: Present: normal bowel sounds, soft, no peritoneal signs. Absent: distended, tenderness - Extremities Exam Extremities exam: Present: warm, radial pulses palpable and symmetrical. Absent : calf tenderness, cyanotic, pedal edema - Neurological Exam Neurological exam: Present: CN II-XII intact, oriented X3, no focal deficits. Absent: pronater drift, facial droop, speech deficit - Skin Skin exam: Present: dry, intact
[2017-08-16] MEDS ORDERED: Piperacillin/Tazobactam 3.375 GM in D5% in Water (Mini-Bag+) 100 ML IVPB ONE (13:42)
[2017-08-16] MEDS ORDERED: FLUARIX QUAD 2017-18 36MOS UP/PF 0.5 ML SYRINGE IM ONE (14:07)
[2017-08-16 14:12] VITALS: BP 102/50
== END 2017-08-16 18:22 | disposition home or self-care (01) | DRG 291 ==
LOC: 2ANU 12:37 → EMEROO 12:37 → 2ANU 16:56
PROVIDERS: ADMIT Internal Medicine; ATTEND Internal Medicine

== ENCOUNTER 2017-09-20 15:26 | Inpatient (IN) ==
[2017-09-20] MEDS ORDERED: 0.9 % Sodium Chloride 1,000 ML IVC ONE (16:07)
--- NOTE | 2017-09-20 16:25 | Emergency Department Note ---
START Narrative - START START: I examined this patient and my medical decision-making was reviewed with the emergency medicine resident. I agree with the documented findings, disposition and treatment plan as described except to the extent set forth below. Patient seen with emergency medicine resident Dr. Ronnell Reid, Please see a copy of his note for details of the H&P, ED evaluation, management and disposition. I have independently evaluated the patient and confirmed appropriate portions of the history and physical exam. Briefly: A 62-year-old female multiple falls. Playing of chest discomfort some weakness abdominal pain with distention and some guarding. Lab CT scan are pending. Disposition pending. admission being considered.
[2017-09-20 16:53] LABS: Basophils % 0.5 %; Hematocrit 31.9 % (35.3-44.9); Hemoglobin 9.7 g/dL (11.5-15.4); Immature Granulocytes % 0.2 % (0-4); Lymphocytes # 0.9 K/mcL (0.6-4.6); Lymphocytes % 20.5 %; Mean Corpuscular HGB Conc 30.4 g/dL (31.6-35.5); Mean Corpuscular Hemoglobin 25.2 pg (28.0-33.3); Mean Corpuscular Volume 82.9 fL (83.0-100.0); Mean Platelet Volume 12.6 fL (9.4-12.4); Monocytes # 0.4 K/mcL (0.0-1.3); Monocytes % 9.8 %; Neutrophils # 2.9 K/mcL (1.6-8.9); Nucleated Red Blood Cells 0.5 /100 WBC (0); Platelet Count 157 K/mcL (140-400); Red Blood Count 3.85 M/mcL (3.82-4.97); Red Cell Distribution Width 19.1 % (11.5-14.5)
[2017-09-20 16:55] LABS: INR 1.8; Prothrombin Time 20.1 Seconds (9.4-12.1)
--- NOTE | 2017-09-20 16:55 | Emergency Department Note ---
Disposition Clinical Impression: Atrial fibrillation with RVR, Pleural effusion, Weakness generalized CHF exacerbation Qualifiers: Congestive heart failure type: unspecified congestive heart failure type Qualified Code(s): I50.9 - Heart failure, unspecified Disposition: Admitted As Inpatient Condition: Good General Adult HPI - General Chief complaint: ED Arrhythmia/Palpitations Stated complaint: Chest pain Source: EMS Limitations: no limitations Nursing Notes Reviewed: Yes Vital Signs Reviewed: Yes - History of Present Illness HPI Narrative: 62-year-old female who has been complaining of generalized fatigue, abdominal pain, chest pain and palpitations. This is been going on for a few days. She denies having a fever. She has had some shortness of breath. She does wear oxygen at home. She denies having a fever. She also admits that she has had multiple falls due to syncope. She is complaining of pain in her left hip since the falls. Radiation: non-radiation Pain Severity: moderate Pain Scale: 9 Consistency: constant Improves with: nothing Worsens with: movement Associated symptoms: Reports: denies other symptoms Treatments Prior to Arrival: none - Related Data Home Medications Medication Instructions Recorded Confirmed Ergocalciferol (VITAMIN D2) 50,000 unit PO DAVIS 01/11/16 08/13/17 [Vitamin D2 (50,000 UNIT)] Folic Acid 1 mg PO DAILY 01/11/16 08/13/17 Multivitamin/Iron/Folic Acid 1 tab PO DAILY 01/11/16 08/13/17 [Centrum Complete Multivit Tab] Nitroglycerin [Nitrostat] 0.4 mg SL Q5M PRN 01/11/16 08/13/17 Simvastatin [Zocor] 20 mg PO HS 01/11/16 08/13/17 Venlafaxine HCl [Effexor Xr] 75 mg PO DAILY 01/11/16 08/13/17 Vitamin E 1,000 units PO DAILY 01/11/16 08/13/17 ALPRAZolam [Xanax 1 MG Tablet] 1 mg PO TID 10/18/16 08/13/17 Oxycodone HCl/Acetaminophen 1 tab PO Q6H PRN 10/18/16 08/13/17 [Percocet 10-325 mg Tablet] Apixaban [Eliquis] 5 mg PO BID 02/23/17 08/13/17 Oxygen 3 l .ROUTE AD 04/06/17 08/13/17 Oxycodone HCl [Oxycodone HCl ER] 30 mg PO Q12H PRN 07/15/17 08/13/17 Potassium Chloride [Klor-Con 10 meq PO BID 07/15/17 08/13/17 Sprinkle] Pregabalin [Lyrica] 75 mg PO BID 07/15/17 08/13/17 Previous Rx's Medication Instructions Recorded Lisinopril [Zestril] 40 mg PO DAILY #0 10/21/16 Propylthiouracil 50 mg PO TID #90 tablet 04/09/17 Aspirin Enteric Coated [Aspirin EC] 81 mg PO DAILY #90 07/18/17 Furosemide [Lasix] 40 mg PO BIDWM #0 07/18/17 Isosorbide MONOnitrate (24 HR) 120 mg PO DAILY 07/18/17 [Imdur] Paroxetine [Paxil] 20 mg PO DAILY tab 07/18/17 amLODIPine [Norvasc] 2.5 mg PO DAILY tab 07/18/17 Amoxicillin/Clavulanate [Augmentin] 875 mg PO BIDWM #28 tablet 08/16/17 Loperamide [Imodium] 2 mg PO Q4HR PRN #30 capsule 08/16/17 Metoprolol XL (24 HR) Succ [Toprol 75 mg PO BID #60 tab.er.24h 08/16/17 Xl] Allergies Allergy/AdvReac Type Severity Reaction Status Date / Time hydrocodone [From Vicodin] Allergy Swelling Verified 09/20/17 15:38 of Lip/Tongue/Throat All systems ED: reviewed and negative except as stated. Constitutional: Denies: fever Cardiovascular: Reports: chest pain Respiratory: Reports: cough, dyspnea Gastrointestinal: Reports: abdominal pain. Denies: vomiting, diarrhea Genitourinary: Denies: dysuria Integumentary: Denies: rash Past Medical History - Past Medical History Medical history: Reports: atrial fibrillation, cancer, coronary artery disease, hyperlipidemia, hypertension, osteoporosis, other Surgical history: Reports: cholecystectomy, coronary bypass (CABG), hysterectomy , other (bowel surgery) Psychiatric history: Reports: depression - Social History Smoking Status: Never smoker Smokeless Tobacco Status: No Alcohol use: Reports: none Drug use: Reports: none Physical Exam - General Limitations: no limitations General appearance: alert, in no apparent distress - Head Head exam: atraumatic - Eye Eye exam: Present: normal appearance, PERRL - ENT ENT exam: normal exam, normal oropharynx - Neck Neck exam: Present: normal inspection - Respiratory Respiratory exam: Present: other (coarse lung sounds bilaterally.). Absent: respiratory distress - Cardiovascular Cardiovascular exam: Present: tachycardia, irregular rhythm - Abdominal Exam Abdominal exam: Present: soft, tenderness (Suprapubic tenderness to palpation and fullness) - Extremities Exam Extremities exam: Present: pedal edema (Bilateral) - Neurological Exam Neurological exam: Present: alert, oriented X3 - Skin Skin exam: Present: warm, dry Course Course Narrative: CT scan demonstrates large bilateral pleural effusions likely secondary to congestive heart failure. In addition she does have anasarca. She is in atrial fibrillation with RVR and we are certain rate control medications with Cardizem. Her troponin is not elevated and her EKG does not show ischemic changes. Her TSH is 0. It has been that way for approximately 6 months. She is not in thyroid storm as she is not febrile, altered, etc. She does appear to be in CHF. Likely secondary to Afib RVR. Will rate control and give lasix. Vital Signs Temperature 97.3 F L 09/20/17 15:27 Pulse Rate 134 09/20/17 15:27 Respiratory Rate 20 09/20/17 15:27 Blood Pressure 136/96 09/20/17 15:27 O2 Sat by Pulse Oximetry 100 09/20/17 15:27 Temperature 97.3 F L 09/20/17 15:27 Pulse Rate 134 09/20/17 16:41 Respiratory Rate 18 09/20/17 16:41 Blood Pressure 103/77 09/20/17 16:41 O2 Sat by Pulse Oximetry 100 09/20/17 16:41 Oxygen Delivery Oxygen Delivery Nasal Cannula Medical Decision Making - Medical Records Medical records reviewed: Yes I reviewed the patient's medical records. - Lab Data Lab results reviewed: Yes I reviewed the patient's lab results. Result diagrams: 09/20/17 16:40 09/20/17 16:40 Lab Results 09/20/17 09/20/17 09/20/17 Range/Units 16:40 16:40 16:40 WBC 4.2 L (4.3-11.1) K/mcL RBC 3.85 (3.82-4.97) M/mcL Hgb 9.7 L (11.5-15.4) g/dL Hct 31.9 L (35.3-44.9) % MCV 82.9 L (83.0-100.0) fL MCH 25.2 L (28.0-33.3) pg MCHC 30.4 L (31.6-35.5) g/dL RDW 19.1 H (11.5-14.5) % Plt Count 157 (140-400) K/mcL MPV 12.6 H (9.4-12.4) fL Immature Gran % 0.2 (0-4) % Seg Neutrophils % 69.0 % Lymphocytes % 20.5 % Monocytes % 9.8 % Eosinophils % 0.0 % Basophils % 0.5 % Neutrophils # 2.9 (1.6-8.9) K/mcL Lymphocytes # 0.9 (0.6-4.6) K/mcL Monocytes # 0.4 (0.0-1.3) K/mcL Eosinophils # 0.0 (0.0-0.6) K/mcL Basophils # 0.0 (0.0-0.2) K/mcL Nucleated RBCs/100 WBC 0.5 H (0) /100 WBC PT 20.1 H (9.4-12.1) Seconds INR 1.8 APTT 30.0 (26.0-36.0) Seconds Sodium 144 (136-145) mEq/L Potassium 2.8 L (3.5-4.5) mEq/L Chloride 106 (98-109) mEq/L Carbon Dioxide 29 (19-29) mEq/L BUN 10 (7-20) mg/dL Creatinine 0.42 L (0.57-1.11) mg/dL Est GFR ( Amer) > 60 (> 60) Est GFR (Non-Af Amer) > 60 (> 60) BUN/Creatinine Ratio 24 (6-26) Glucose 66 L (70-99) mg/dL Calculated Osmolality 295 (280-300) Calcium 8.4 L (8.6-10.8) mg/dL Troponin I (0-0.03) ng/mL TSH 0.000 L (0.350-4.840) mcIU/mL 09/20/17 Range/Units 16:40 WBC (4.3-11.1) K/mcL RBC (3.82-4.97) M/mcL Hgb (11.5-15.4) g/dL Hct (35.3-44.9) % MCV (83.0-100.0) fL MCH (28.0-33.3) pg MCHC (31.6-35.5) g/dL RDW (11.5-14.5) % Plt Count (140-400) K/mcL MPV (9.4-12.4) fL Immature Gran % (0-4) % Seg Neutrophils % % Lymphocytes % % Monocytes % % Eosinophils % % Basophils % % Neutrophils # (1.6-8.9) K/mcL Lymphocytes # (0.6-4.6) K/mcL Monocytes # (0.0-1.3) K/mcL Eosinophils # (0.0-0.6) K/mcL Basophils # (0.0-0.2) K/mcL Nucleated RBCs/100 WBC (0) /100 WBC PT (9.4-12.1) Seconds INR APTT (26.0-36.0) Seconds Sodium (136-145) mEq/L Potassium (3.5-4.5) mEq/L Chloride (98-109) mEq/L Carbon Dioxide (19-29) mEq/L BUN (7-20) mg/dL Creatinine (0.57-1.11) mg/dL Est GFR ( Amer) (> 60) Est GFR (Non-Af Amer) (> 60) BUN/Creatinine Ratio (6-26) Glucose (70-99) mg/dL Calculated Osmolality (280-300) Calcium (8.6-10.8) mg/dL Troponin I 0.03 (0-0.03) ng/mL TSH (0.350-4.840) mcIU/mL - Radiology Data Radiology results reviewed: Yes I reviewed the patient's radiology results. - EKG Data EKG #1 EKG attestation: Yes I reviewed and interpreted this EKG. Rate: tachycardia Rhythm: A.Fib [place]/QRS: normal When compared to previous EKG there are: no significant changes Interpretation: no acute changes
[2017-09-20 16:58] LABS: BUN/Creatinine Ratio 24 (6-26); Blood Urea Nitrogen 10 mg/dL (7-20); Calcium 8.4 mg/dL (8.6-10.8); Carbon Dioxide 29 mEq/L (19-29); Chloride 106 mEq/L (98-109); Glucose 66 mg/dL (70-99); Osmolality,Calculated 295 (280-300); Potassium 2.8 mEq/L (3.5-4.5); Sodium 144 mEq/L (136-145); eGFR For African Americans > 60 (> 60); eGFR For Non-African Americans > 60 (> 60)
[2017-09-20] MEDS ORDERED: Furosemide 20 MG/2 ML VIAL IVP ONE (17:55)
[2017-09-20] MEDS ORDERED: Ondansetron 4 MG/2 ML VIAL IVP PRN (20:42)
[2017-09-20] MEDS ORDERED: Acetaminophen 325 MG TABLET PO PRN (20:42)
[2017-09-20] MEDS ORDERED: Naloxone 0.4 MG/ML INJ IVP PRN (20:42)
[2017-09-20] MEDS ORDERED: Nitroglycerin 0.4 MG TAB.SUBL SL PRN (20:58)
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
[2017-09-20] MEDS ORDERED: Cyanocobalamin (B-12) 1,000 MCG/ML VIAL IM ONE (21:43)
[2017-09-20] MEDS ORDERED: Potassium Chloride 20 MEQ, Lidocaine 1% 2 ML in D5% in Water 250 ML IVPB ONE (22:04)
[2017-09-20] MEDS ORDERED: Potassium Chloride Elixir 20 MEQ/15 ML UDC PO ONE (22:23)
[2017-09-20] MEDS: Metoprolol XL (24 HR) Succ 50 MG TAB.ER.24H PO SCH (22:24)
[2017-09-20] MEDS: Pregabalin 75 MG CAPSULE PO SCH (22:24)
[2017-09-20] MEDS: *HR* OxyCODONE ER (12 HR) 10 MG TABLET PO SCH (22:25)
[2017-09-20] MEDS: ALPRAZolam 1 MG TABLET PO SCH (22:25)
[2017-09-20] MEDS: Pantoprazole 40 MG VIAL IVP SCH (22:26)
[2017-09-20] MEDS: predniSONE 20 MG TABLET PO SCH (23:41)
[2017-09-20] MEDS: APIXABAN 5 MG TABLET PO SCH (23:41)
[2017-09-20] MEDS: Cholestyramine 4 GM POWD.PACK PO SCH (23:45)
[2017-09-20] MEDS: Furosemide 20 MG/2 ML VIAL IVP SCH (23:45)
[2017-09-21 05:05] LABS: Hematocrit 31.1 % (35.3-44.9); Hemoglobin 9.3 g/dL (11.5-15.4); Immature Granulocytes % 0.2 % (0-4); Lymphocytes # 0.4 K/mcL (0.6-4.6); Lymphocytes % 10.7 %; Mean Corpuscular HGB Conc 29.9 g/dL (31.6-35.5); Mean Corpuscular Hemoglobin 25.6 pg (28.0-33.3); Mean Corpuscular Volume 85.7 fL (83.0-100.0); Mean Platelet Volume 12.8 fL (9.4-12.4); Monocytes # 0.1 K/mcL (0.0-1.3); Monocytes % 2.2 %; Neutrophils # 3.6 K/mcL (1.6-8.9); Platelet Count 162 K/mcL (140-400); Red Blood Count 3.63 M/mcL (3.82-4.97); Red Cell Distribution Width 19.7 % (11.5-14.5); Segmented Neutrophils % 86.9 %
[2017-09-21 05:12] LABS: INR 2.7; Prothrombin Time 29.5 Seconds (9.4-12.1)
[2017-09-21 05:15] LABS: Activated Partial Thrombo Time 28.7 Seconds (26.0-36.0)
[2017-09-21 05:16] LABS: Hemoglobin A1C 4.7 %
[2017-09-21 05:22] LABS: Alanine Aminotransferase 24 Units/L (0-55); Albumin 2.1 g/dL (3.5-5.0); Albumin/Globulin Ratio 0.5 (1.1-2.2); Alkaline Phosphatase 306 Units/L (38-126); Aspartate Amino Transferase 46 Units/L (5-34); BUN/Creatinine Ratio 16 (6-26); Bilirubin,Total 2.1 mg/dL (0.2-1.2); Blood Urea Nitrogen 10 mg/dL (7-20); Calcium 8.1 mg/dL (8.6-10.8); Carbon Dioxide 25 mEq/L (19-29); Chloride 108 mEq/L (98-109); Chol/HDL Ratio 3.8 (0-4.9); Globulin 4.3 g/dL (2.4-3.5); Glucose 147 mg/dL (70-99); HDL Cholesterol 21 mg/dL (40-59); LDL Cholesterol,Calculated 44 mg/dL (0-99); Magnesium 1.5 mg/dL (1.6-2.6); Osmolality,Calculated 304 (280-300); Sodium 146 mEq/L (136-145); Total Protein 6.4 g/dL (6.0-8.3); Triglycerides 76 mg/dL (< 150); eGFR For African Americans > 60 (> 60); eGFR For Non-African Americans > 60 (> 60)
[2017-09-21 05:26] LABS: Cholesterol 80 mg/dL (< 200); Potassium 4.1 mEq/L (3.5-4.5)
--- NOTE | 2017-09-21 08:24 | Internal Med Progress Note ---
<Jackson Babb - Last Filed: 09/21/17 16:52> Date of Encounter: 09/21/17 Time of Encounter: 08:21 - Assessment and plan (1) Diastolic CHF, acute on chronic Current Visit: Yes Status: Acute Assessment and plan: Acute exacerbation of CHF, BNP 2548, pedal edema CXR reveals bilateral pleural effusions. Echocardiogram in June 2017 revealed LVEF of 60%. CT of the abdomen and pelvis reveals cardiomegaly with large bilateral pleural effusions, trace abdominal ascites, and diffuse anasarca. No acute abdominopelvic process demonstrated. Continue cardiac telemetry. Serail troponins: 0.03 --> 0.03 --> 0.02 IVP lasix 20 mg TID. Continue Metoprolol, and lisinopril. Hold hydrochlorothiazide Monitor f/u labs and patient for signs of fluid overload. (2) Hyperthyroidism Current Visit: Yes Status: Chronic Assessment and plan: Hx of chronic hyperthyroidism. She reports not being able to make it to her endocrinology appointments for management of her hyperthyroidism and was previously scheduled for an outpatient thyroid uptake scan. Current TSH is 0.000, and free T4 2.99 Resume prophylthioracil. Added cholestyramine to reduce enterohepatic recycling of thyroid hormones, consider hydrocortisone if not improving with prednisone Avoid non-selective beta blockers/ Propanolol due to ability to cross blood brain barrier given severe depression Follow up outpatient with mine development engineer/ Dr. Noel (3) Severe protein-calorie malnutrition Current Visit: Yes Status: Acute Assessment and plan: Chronic cachexia with weight of 55.9 kg and BMI of 21.8. Severe loss of subcuticular fat, temporal wasting, she has lost 35 lbs in the past year and is on Megace for appetite stimulation. Continue Megace. PO supplementation: Ensure TID Nutrition consulted (4) Weakness generalized Current Visit: Yes Status: Acute Assessment and plan: Hx of chronic syncope and falls CT of the head/brain w/o contrast shows no acute intracranial abnormality. MRI of head/brain reveals mild senescent changes, otherwise unremarkable brain MRI with and without contrast. Bilateral carotid Doppler duplex imaging reveals nonstenotic plaque bilaterally Falls/safety precautions. Orthostatic BPs and VS. GI panel negative for C. diff UA pending PT/OT consulted (5) Atrial fibrillation with RVR Current Visit: Yes Status: Acute Assessment and plan: Rate controlled off Cardizem drip Continue home Metoprolol XL and Eliquis (6) CAD (coronary artery disease) Current Visit: No Status: Chronic Assessment and plan: Hx of chronic CAD. Continuous cardiac telemetry. Continue patient's metoprolol, lisinopril, Lipitor, and aspirin therapy. Qualifiers: Coronary Disease-Associated Artery/Lesion type: unspecified vessel or lesion type [place] vs. transplanted heart: [place] heart Associated angina: without angina Qualified Code(s): I25.10 - Atherosclerotic heart disease of [place] coronary artery without angina pectoris (7) HTN (hypertension) Current Visit: Yes Status: Chronic Assessment and plan: Hx of chronic HTN. Monitor patient and VS. Continue metoprolol, and lisinopril. Qualifiers: Hypertension type: essential hypertension Qualified Code(s): I10 - Essential (primary) hypertension (8) COPD (chronic obstructive pulmonary disease) Current Visit: No Status: Chronic Assessment and plan: Not in acute exacerbation Continue Duonebs Qualifiers: COPD type: unspecified COPD Qualified Code(s): J44.9 - Chronic obstructive pulmonary disease, unspecified (9) Anemia Current Visit: Yes Status: Chronic Assessment and plan: Hx of chronic anemia. Continue patient's folic acid Given B12 1,000 mcg ONCE. Monitor labs. Qualifiers: Anemia type: unspecified type Qualified Code(s): D64.9 - Anemia, unspecified (10) Type 2 diabetes mellitus Current Visit: No Status: Chronic Assessment and plan: HGB a1c 4.7 Continue to monitor Qualifiers: Diabetes mellitus complication status: without complication Diabetes mellitus longterm insulin use: without termite exterminator use Qualified Code(s): E11.9 - Type 2 diabetes mellitus without complications (11) Bladder cancer Current Visit: Yes Status: Acute Assessment and plan: Patient reports no current treatment at this time Denies hematuria 35lbs weight loss in the past 1 year Started on Megace for appetite stimulation Qualifiers: Bladder location: unspecified site Qualified Code(s): C67.9 - Malignant neoplasm of bladder, unspecified (12) Hypokalemia Current Visit: Yes Status: Resolved Assessment and plan: K 2.8 --> 4.1 Continue to monitor (13) Hypomagnesemia Current Visit: Yes Status: Resolved Assessment and plan: Mag 1.5 --> 1.9 Continue to monitor (14) DVT prophylaxis Current Visit: Yes Status: Acute Assessment and plan: Jadenshahzadpily Infante - Subjective Interval history: Patient seen and examined. Patient complains of chronic pain in mid back and asks for her next dose of Percocet. She also reports severe depression since her in June. She has lost 35 lbs in the past year and is on Megace for appetite stimulation. She reports not being able to make it to her endocrinology appointments for management of her hyperthyroidism and was previously scheduled for an outpatient thyroid uptake scan. - Constitutional Vitals: Temp Pulse Resp BP Pulse Ox 97.4 F L 54 17 100/50 94 09/21/17 04:00 09/21/17 07:00 09/21/17 07:00 09/21/17 07:00 09/21/17 07:00 General appearance: Present: cachectic, cooperative, A&O X 3, pleasant, loss of weight, answers questions appropriately Exam: moderate distress, laying in bed - Head Head exam: Present: atraumatic, normocephalic Additional comments: temporal wasting - Eye Eye exam: Present: EOMI, conjuntiva pink, sclera anicteric - ENT ENT exam: Present: mucous membranes moist, normal oropharynx - Neck Neck exam general surgery: Present: normal inspection, supple, trachea midline. Absent: thyromegaly - Respiratory Respiratory exam: Present: decreased breath sounds, rales (mild). Absent: rhonchi, wheezes - Cardiovascular Cardiovascular exam: Present: irregular rhythm, +S1, +S2 - GI/Abdominal GI/Abdominal exam: Present: soft, tenderness (diffuse). Absent: guarding - Additional comments: no verduzco - Extremities Exam Extremities exam: Present: pedal edema, warm Additional comments: loss of subcuticular fat, loss of muscle mass, 3+ pedal edema - Back Exam Back exam: Present: normal inspection, paraspinal tenderness, tenderness (t- spine). Absent: rash noted - Neurological Exam Neurological exam: Present: alert, oriented X3, no focal deficits. Absent: motor sensory deficit, speech deficit - Psychiatric Psychiatric exam: Present: depressed, flat affect - Skin Skin exam: Present: dry, intact, warm Internal Medicine: Result - Labs CBC & Chem 7: 09/21/17 04:44 09/21/17 04:44 Labs: Short CBC 09/21/17 Range/Units 04:44 WBC 4.1 L (4.3-11.1) K/mcL Hgb 9.3 L (11.5-15.4) g/dL Hct 31.1 L (35.3-44.9) % Plt Count 162 (140-400) K/mcL Neutrophils # 3.6 (1.6-8.9) K/mcL BMP 09/21/17 04:44 Sodium 146 H Potassium 4.1 D Chloride 108 Carbon Dioxide 25 BUN 10 Creatinine 0.64 D Glucose 147 H Calcium 8.1 L Cardiac Enzymes 09/20/17 09/21/17 Range/Units 23:07 04:44 Troponin I 0.03 0.02 (0-0.03) ng/mL Liver Function 09/21/17 Range/Units 04:44 Total Bilirubin 2.1 H (0.2-1.2) mg/dL AST 46 H (5-34) Units/L ALT 24 (0-55) Units/L Alkaline Phosphatase 306 H (38-126) Units/L Albumin 2.1 L (3.5-5.0) g/dL - ABG Interpretation ABG results: PT/INR, D-dimer PT 29.5 Seconds (9.4-12.1) H 09/21/17 04:44 - Pulse Oximetry Interpretation Digit-Finger Pulse Oximetry Readin (4L) Actions taken: other (decreased to 2L) - Impressions ITS Impressions Abdomen/Pelvis CT 09/20/17 15:51 IMPRESSION: Cardiomegaly with large bilateral pleural effusions, trace abdominal ascites, and diffuse anasarca. No acute abdominopelvic process demonstrated D/ / Vahe Woodard MD / Vahe Woodard MD Interpreting Provider: Vahe Woodard MD Chest X-Ray 09/20/17 15:51 IMPRESSION: Bilateral pleural effusions. D/ / Howie Garcia MD / Howie Garcia MD Interpreting Provider: Howie Garcia MD Cervical Spine CT 09/20/17 16:55 IMPRESSION: No acute abnormality of the cervical spine. Moderate-sized bilateral pleural effusions, larger on the right. D/ / 09/20/2017 17:28:18 Haresh Paulson MD / anne-marie Interpreting Provider: Haresh Paulson MD Head CT 09/20/17 16:55 IMPRESSION: No acute intracranial abnormality. D/ / Augustine Hazel MD / Augustine Hazel MD Interpreting Provider: Augustine Hazel MD - VTE Documentation of Mechanical Device: Graduated compression elastic hosiery Consult Discharge Plan - Plan Referrals: Alpa Lee, LOADING UNIT TOOL SETTER [Primary Care Provider] - <Dagoberto Mcdaniels - Last Filed: 09/21/17 18:37> Date of Encounter: 09/21/17 - Assessment and plan (1) Acute exacerbation of CHF (congestive heart failure) Current Visit: Yes Status: Acute Qualifiers: Congestive heart failure type: diastolic Qualified Code(s): I50.33 - Acute on chronic diastolic (congestive) heart failure (2) Hyperthyroidism Current Visit: Yes Status: Chronic (3) CAD (coronary artery disease) Current Visit: No Status: Chronic Qualifiers: Coronary Disease-Associated Artery/Lesion type: [place] artery [place] vs. transplanted heart: [place] heart Associated angina: without angina Qualified Code(s): I25.10 - Atherosclerotic heart disease of [place] coronary artery without angina pectoris (4) Type 2 diabetes mellitus Current Visit: No Status: Chronic Qualifiers: Diabetes mellitus complication status: without complication Diabetes mellitus longterm insulin use: without longterm use Qualified Code(s): E11.9 - Type 2 diabetes mellitus without complications (5) Chronic respiratory failure with hypoxia Current Visit: No Status: Chronic (6) Atrial fibrillation Current Visit: No Status: Chronic Qualifiers: Atrial fibrillation type: persistent Qualified Code(s): I48.1 - Persistent atrial fibrillation (7) Depression Current Visit: No Status: Acute Qualifiers: Depression Type: reactive depression Qualified Code(s): F32.9 - Major depressive disorder, single episode, unspecified - Constitutional Vitals: Temp Pulse Resp BP Pulse Ox 98.1 F 92 15 116/53 97 09/21/17 15:00 09/21/17 15:00 09/21/17 15:00 09/21/17 15:00 09/21/17 15:00 Internal Medicine: Result - Labs CBC & Chem 7: 09/21/17 04:44 09/21/17 04:44 Labs: Short CBC 09/21/17 Range/Units 04:44 WBC 4.1 L (4.3-11.1) K/mcL Hgb 9.3 L (11.5-15.4) g/dL Hct 31.1 L (35.3-44.9) % Plt Count 162 (140-400) K/mcL Neutrophils # 3.6 (1.6-8.9) K/mcL BMP 09/21/17 04:44 Sodium 146 H Potassium 4.1 D Chloride 108 Carbon Dioxide 25 BUN 10 Creatinine 0.64 D Glucose 147 H Calcium 8.1 L Cardiac Enzymes 09/20/17 09/21/17 Range/Units 23:07 04:44 Troponin I 0.03 0.02 (0-0.03) ng/mL Liver Function 09/21/17 Range/Units 04:44 Total Bilirubin 2.1 H (0.2-1.2) mg/dL AST 46 H (5-34) Units/L ALT 24 (0-55) Units/L Alkaline Phosphatase 306 H (38-126) Units/L Albumin 2.1 L (3.5-5.0) g/dL - ABG Interpretation ABG results: PT/INR, D-dimer PT 29.5 Seconds (9.4-12.1) H 09/21/17 04:44 - Impressions Impressions Brain MRI 09/21/17 22:20 IMPRESSION: Mild senescent changes. Otherwise unremarkable brain MRI with and without contrast. D/ / Johnson Hobbs MD / Johnson Hobbs MD Interpreting Provider: Johnson Hobbs MD - Attending Attestation I examined this patient and my medical decision-making was reviewed with the Resident Physician on 09/21/17. I agree with the documented findings, disposition and treatment plan as described except to the extent set forth below. Ms Mcdaniels is currently admitted for atrial fib, CHF and depression. She remains moderate to high risk due to potential for worsening respiratory status. Ms. Mcdaniels is comfortable currently. No CP. SOB ok at this time. No fever or chills. Diarrhea persists. Exam Alert. Comfortable Heart irreg Lungs clear Abd soft I/P 1. Atrial fib 2. CHF Further diagnoses and plan as above.
[2017-09-21] MEDS ORDERED: Venlafaxine XR (24 HR) 75 MG CAP.ER.24H PO SCH (09:00)
[2017-09-21] MEDS ORDERED: hydroCHLOROthiazide 25 MG TABLET PO SCH (09:00)
[2017-09-21] MEDS: Pantoprazole 40 MG VIAL IVP SCH (09:41)
[2017-09-21] MEDS: Furosemide 20 MG/2 ML VIAL IVP SCH ×2 (09:41→14:25)
[2017-09-21] MEDS: Potassium Chloride Elixir 20 MEQ/15 ML UDC PO SCH ×2 (09:42→21:30)
[2017-09-21] MEDS: ALPRAZolam 1 MG TABLET PO SCH (09:43)
[2017-09-21] MEDS: *HR* OxyCODONE ER (12 HR) 10 MG TABLET PO SCH ×2 (09:43→21:39)
[2017-09-21] MEDS: Metoprolol XL (24 HR) Succ 50 MG TAB.ER.24H PO SCH ×2 (09:43→21:24)
[2017-09-21] MEDS: Lisinopril 20 MG TABLET PO SCH (09:43)
[2017-09-21] MEDS: APIXABAN 5 MG TABLET PO SCH ×2 (09:44→21:34)
[2017-09-21] MEDS: predniSONE 20 MG TABLET PO SCH (09:44)
[2017-09-21] MEDS: Aspirin Enteric Coated 325 MG Tablet PO SCH (09:44)
[2017-09-21] MEDS: Folic Acid 1 MG TABLET PO SCH (09:44)
[2017-09-21] MEDS: Pregabalin 75 MG CAPSULE PO SCH ×2 (09:44→21:40)
[2017-09-21] MEDS: Cholestyramine 4 GM POWD.PACK PO SCH ×3 (09:45→21:41)
[2017-09-21] MEDS ORDERED: Venlafaxine XR (24 HR) 75 MG CAP.ER.24H PO ONE (13:44)
[2017-09-21] MEDS: Venlafaxine XR (24 HR) 150 MG CAP.ER.24H PO SCH (14:22)
[2017-09-21] MEDS: *HR* OxyCODONE/APAP 10/325 TABLET PO PRN (14:27)
[2017-09-21] MEDS: ALPRAZolam 1 MG TABLET PO PRN (14:28)
[2017-09-21] MEDS ORDERED: dilTIAZem HCl 100 MG in D5% in Water 50 ML IVC SCH (16:00)
[2017-09-21 16:19] LABS: Adenovirus F 40/41 PCR Not detected (Not detect); Astrovirus PCR Not detected (Not detect); C.difficile Toxin A/B by PCR Not detected (Not detect); Campylobacter by PCR Not detected (Not detect); Cryptosporidium by PCR Not detected (Not detect); Cyclospora cayetanensis PCR Not detected (Not detect); E. coli O157 by PCR Not detected (Not detect); Entamoeba histolytica PCR Not detected (Not detect); Enteroaggregative E.coli(EAEC) Not detected (Not detect); Enteropathogenic E.coli(EPEC) Not detected (Not detect); Enterotoxigenic E.coli (ETEC) Not detected (Not detect); Giardia lamblia PCR Not detected (Not detect); Norovirus GI/GII PCR Not detected (Not detect); Plesiomonas shigelloides PCR Not detected (Not detect); Rotavirus A PCR Not detected (Not detect); Salmonella PCR Not detected (Not detect); Sapovirus PCR Not detected (Not detect); Shig/EnteroinvasiveE coli EIEC Not detected (Not detect); Shigalike tox-prod E coli STEC Not detected (Not detect); Vibrio PCR Not detected (Not detect); Vibrio cholerae PCR Not detected (Not detect); Yersinia enterocolitica PCR Not detected (Not detect)
[2017-09-21] MEDS: Ipratropium/Albuterol Neb 3 ML IH SCH (21:54)
[2017-09-22] MEDS: Ipratropium/Albuterol Neb 3 ML IH SCH ×4 (03:58→21:47)
[2017-09-22] MEDS: *HR* OxyCODONE/APAP 10/325 TABLET PO PRN ×2 (04:11→16:36)
[2017-09-22 06:23] LABS: Hematocrit 28.3 % (35.3-44.9); Hemoglobin 8.4 g/dL (11.5-15.4); Immature Granulocytes % 0.4 % (0-4); Lymphocytes # 1.1 K/mcL (0.6-4.6); Lymphocytes % 20.8 %; Mean Corpuscular HGB Conc 29.7 g/dL (31.6-35.5); Mean Corpuscular Hemoglobin 24.9 pg (28.0-33.3); Mean Platelet Volume 13.1 fL (9.4-12.4); Monocytes # 0.5 K/mcL (0.0-1.3); Monocytes % 10.5 %; Neutrophils # 3.5 K/mcL (1.6-8.9); Platelet Count 168 K/mcL (140-400); Red Blood Count 3.37 M/mcL (3.82-4.97); Red Cell Distribution Width 19.2 % (11.5-14.5); Segmented Neutrophils % 68.3 %
[2017-09-22 06:41] LABS: Alanine Aminotransferase 23 Units/L (0-55); Albumin/Globulin Ratio 0.5 (1.1-2.2); Alkaline Phosphatase 263 Units/L (38-126); Aspartate Amino Transferase 32 Units/L (5-34); BUN/Creatinine Ratio 34 (6-26); Bilirubin,Total 1.5 mg/dL (0.2-1.2); Calcium 7.9 mg/dL (8.6-10.8); Carbon Dioxide 28 mEq/L (19-29); Chloride 108 mEq/L (98-109); Glucose 226 mg/dL (70-99); Osmolality,Calculated 305 (280-300); Potassium 4.3 mEq/L (3.5-4.5); Sodium 142 mEq/L (136-145); eGFR For African Americans > 60 (> 60); eGFR For Non-African Americans > 60 (> 60)
[2017-09-22 06:44] LABS: Blood Urea Nitrogen 23 mg/dL (7-20)
[2017-09-22] MEDS: Cholestyramine 4 GM POWD.PACK PO SCH ×4 (08:58→22:57)
[2017-09-22] MEDS: predniSONE 20 MG TABLET PO SCH (08:59)
[2017-09-22] MEDS: Lisinopril 20 MG TABLET PO SCH (08:59)
[2017-09-22] MEDS: *HR* OxyCODONE ER (12 HR) 10 MG TABLET PO SCH ×2 (08:59→22:57)
[2017-09-22] MEDS: Aspirin Enteric Coated 325 MG Tablet PO SCH (08:59)
[2017-09-22] MEDS: Folic Acid 1 MG TABLET PO SCH (08:59)
[2017-09-22] MEDS: APIXABAN 5 MG TABLET PO SCH ×2 (09:00→22:55)
[2017-09-22] MEDS: Pregabalin 75 MG CAPSULE PO SCH ×2 (09:00→22:56)
[2017-09-22] MEDS: Metoprolol XL (24 HR) Succ 50 MG TAB.ER.24H PO SCH ×2 (09:00→22:55)
[2017-09-22] MEDS: Pantoprazole 40 MG VIAL IVP SCH (09:01)
[2017-09-22] MEDS: Furosemide 20 MG/2 ML VIAL IVP SCH ×3 (09:01→16:37)
[2017-09-22] MEDS: Venlafaxine XR (24 HR) 150 MG CAP.ER.24H PO SCH (09:14)
--- NOTE | 2017-09-22 10:52 | Internal Med Progress Note ---
Addendum entered and electronically signed by Keely Crawford DO 09/22/17 16:05: (8) Acute blood loss anemia Current Visit: Yes Status: Suspected Assessment and plan: - Hgb drop from 9.3 yesterday to 8.4 today. - Likely from GI given positive stool occult test o 09/20/17. - Change PPI to BID. - Continue to monitor Original Note: <Keely Crawford - Last Filed: 09/22/17 15:43> Date of Encounter: 09/22/17 Time of Encounter: 09:15 - Assessment and plan (1) Acute exacerbation of CHF (congestive heart failure) Current Visit: Yes Status: Acute Assessment and plan: - Shortness of breath with bilateral lower extremity edema and BNP 2548 on initial presentation. - CXR on 09/20/17 showed bilateral pleural effusions. - Echocardiogram on 08/13/17 showed LVEF 60% with indeterminate LV diastolic function. - CT A/P showed cardiomegaly with large bilateral pleural effusions, trace abdominal ascites, and diffuse anasarca. No acute abdominopelvic process noted. - Continue Lasix 20 mg IV TID. - Continue Metoprolol, and lisinopril. - Strict I/O, daily weight. Qualifiers: Congestive heart failure type: diastolic Qualified Code(s): I50.33 - Acute on chronic diastolic (congestive) heart failure (2) Hyperthyroidism Current Visit: Yes Status: Chronic Assessment and plan: - Known history of chronic hyperthyroidism. - Per patient, she was not able to make it to her endocrinology appointments for management of her hyperthyroidism and was previously scheduled for an outpatient thyroid uptake scan. - TSH is 0.000 and free T4 2.99 on admission. - Continue prophylthioracil. - Continue cholestyramine to reduce enterohepatic recycling of thyroid hormones , consider hydrocortisone if not improving with prednisone - Avoid non-selective beta blockers such as Propanolol which can cross blood brain barrier and potentially aggravate patient's depression - Patient will need outpatient follow-up with tapper balance wheel screw hole Dr. Noel (3) Atrial fibrillation Current Visit: No Status: Chronic Assessment and plan: - Currently rate controlled. - Continue Toprol XL and Eliquis. Qualifiers: Atrial fibrillation type: persistent Qualified Code(s): I48.1 - Persistent atrial fibrillation (4) CAD (coronary artery disease) Current Visit: No Status: Chronic Assessment and plan: - History of chronic CAD. - Continue metoprolol, lisinopril, Lipitor, and aspirin. Qualifiers: Coronary Disease-Associated Artery/Lesion type: [place] artery [place] vs. transplanted heart: [place] heart Associated angina: without angina Qualified Code(s): I25.10 - Atherosclerotic heart disease of [place] coronary artery without angina pectoris (5) Chronic respiratory failure with hypoxia Current Visit: No Status: Chronic (6) Depression Current Visit: No Status: Acute Assessment and plan: - Continue Effexor 150 mg PO daily. Qualifiers: Depression Type: reactive depression Qualified Code(s): F32.9 - Major depressive disorder, single episode, unspecified (7) Weakness generalized Current Visit: Yes Status: Acute Assessment and plan: - History of multiples episodes of syncope and falls - CT of the head/brain w/o contrast shows no acute intracranial abnormality. - MRI of head/brain reveals mild senescent changes, otherwise unremarkable brain MRI with and without contrast. - Bilateral carotid Doppler duplex imaging reveals nonstenotic plaque bilaterally - Falls/safety precautions. - GI panel negative for C. diff - PT/OT consulted - Social service on board for discharge planning. Patient will go to [facility] upon discharge. - Subjective Interval history: Patient was seen and examined this morning. Patient reports no complaint and denies chest pain, abdominal pain, shortness of breath, nausea, vomiting. - Constitutional Vitals: Temp Pulse Resp BP Pulse Ox 96.7 F L 67 16 125/67 95 09/22/17 07:32 09/22/17 07:32 09/22/17 07:32 09/22/17 07:32 09/22/17 07:32 General appearance: Present: cachectic, cooperative, A&O X 3, loss of weight, answers questions appropriately - Head Head exam: Present: atraumatic, normocephalic - Eye Eye exam: Present: EOMI, conjuntiva pink, sclera anicteric - Neck Neck exam general surgery: Present: supple, trachea midline. Absent: lymphadenopathy - Respiratory Respiratory exam: Present: decreased breath sounds. Absent: accessory muscle use, rales, rhonchi, wheezes - Cardiovascular Cardiovascular exam: Present: RRR, +S1, +S2. Absent: diastolic murmur, gallop, rubs, systolic murmur - GI/Abdominal GI/Abdominal exam: Present: normal bowel sounds, soft, no peritoneal signs. Absent: distended, tenderness - Extremities Exam Extremities exam: Present: pedal edema (Mild to moderate, stable compared to yesterday.), warm. Absent: calf tenderness, cyanotic - Neurological Exam Neurological exam: Present: oriented X3, no focal deficits. Absent: facial droop, speech deficit - Skin Skin exam: Present: dry, intact, warm Internal Medicine: Result - Labs CBC & Chem 7: 09/22/17 05:49 09/22/17 05:49 Labs: Short CBC 09/22/17 Range/Units 05:49 WBC 5.1 (4.3-11.1) K/mcL Hgb 8.4 L (11.5-15.4) g/dL Hct 28.3 L (35.3-44.9) % Plt Count 168 (140-400) K/mcL Neutrophils # 3.5 (1.6-8.9) K/mcL BMP 09/22/17 05:49 Sodium 142 Potassium 4.3 Chloride 108 Carbon Dioxide 28 BUN 23 H D Creatinine 0.68 Glucose 226 H Calcium 7.9 L Liver Function 09/22/17 Range/Units 05:49 Total Bilirubin 1.5 H (0.2-1.2) mg/dL AST 32 (5-34) Units/L ALT 23 (0-55) Units/L Alkaline Phosphatase 263 H (38-126) Units/L Albumin 2.0 L (3.5-5.0) g/dL - ABG Interpretation ABG results: PT/INR, D-dimer PT 29.5 Seconds (9.4-12.1) H 09/21/17 04:44 - Impressions Impressions Brain MRI 09/21/17 22:20 IMPRESSION: Mild senescent changes. Otherwise unremarkable brain MRI with and without contrast. D/ / Johnson Hobbs MD / Johnson Hobbs MD Interpreting Provider: Johnson Hobbs MD - VTE Documentation of Mechanical Device: Graduated compression elastic hosiery Consult Discharge Plan - Plan Referrals: Alpa Lee, [facility] [Primary Care Provider] - <Dagoberto Mcdaniels - Last Filed: 09/22/17 18:03> Date of Encounter: 09/22/17 - Assessment and plan (1) Acute exacerbation of CHF (congestive heart failure) Current Visit: Yes Status: Acute Qualifiers: Congestive heart failure type: diastolic Qualified Code(s): I50.33 - Acute on chronic diastolic (congestive) heart failure (2) Hyperthyroidism Current Visit: Yes Status: Chronic (3) CAD (coronary artery disease) Current Visit: No Status: Chronic Qualifiers: Coronary Disease-Associated Artery/Lesion type: [place] artery [place] vs. transplanted heart: [place] heart Associated angina: without angina Qualified Code(s): I25.10 - Atherosclerotic heart disease of [place] coronary artery without angina pectoris (4) Type 2 diabetes mellitus Current Visit: No Status: Chronic Qualifiers: Diabetes mellitus complication status: without complication Diabetes mellitus alf insulin use: without alf use Qualified Code(s): E11.9 - Type 2 diabetes mellitus without complications (5) Chronic respiratory failure with hypoxia Current Visit: No Status: Chronic (6) Atrial fibrillation Current Visit: No Status: Chronic Qualifiers: Atrial fibrillation type: persistent Qualified Code(s): I48.1 - Persistent atrial fibrillation (7) Depression Current Visit: No Status: Acute Qualifiers: Depression Type: reactive depression Qualified Code(s): F32.9 - Major depressive disorder, single episode, unspecified (8) Anemia Current Visit: Yes Status: Chronic Assessment and plan: H/H lower today. Recheck tomorrow. Stool guiac positive. Qualifiers: Anemia type: iron deficiency Iron deficiency anemia type: chronic blood loss Qualified Code(s): D50.0 - Iron deficiency anemia secondary to blood loss (chronic) - Constitutional Vitals: Temp Pulse Resp BP Pulse Ox 97.7 F 65 16 117/66 97 09/22/17 14:57 09/22/17 14:57 09/22/17 15:26 09/22/17 14:57 09/22/17 15:26 Internal Medicine: Result - Labs CBC & Chem 7: 09/22/17 05:49 09/22/17 05:49 Labs: Short CBC 09/22/17 Range/Units 05:49 WBC 5.1 (4.3-11.1) K/mcL Hgb 8.4 L (11.5-15.4) g/dL Hct 28.3 L (35.3-44.9) % Plt Count 168 (140-400) K/mcL Neutrophils # 3.5 (1.6-8.9) K/mcL BMP 09/22/17 05:49 Sodium 142 Potassium 4.3 Chloride 108 Carbon Dioxide 28 BUN 23 H D Creatinine 0.68 Glucose 226 H Calcium 7.9 L Liver Function 09/22/17 Range/Units 05:49 Total Bilirubin 1.5 H (0.2-1.2) mg/dL AST 32 (5-34) Units/L ALT 23 (0-55) Units/L Alkaline Phosphatase 263 H (38-126) Units/L Albumin 2.0 L (3.5-5.0) g/dL - ABG Interpretation ABG results: PT/INR, D-dimer PT 29.5 Seconds (9.4-12.1) H 09/21/17 04:44 - Attending Attestation I examined this patient and my medical decision-making was reviewed with the Resident Physician on 09/22/17. I agree with the documented findings, disposition and treatment plan as described except to the extent set forth below. Ms Mcdaniels is currently admitted for acute exac CHF and anemia. She remains moderate to high risk due to potential for worsening clinical status. Ms Mcdaniels is resting at this time. She did not eat breakfast. No fever or chills. No CP or worsening SOB. Still with loose stool. Exam Alert. Comfortable Heart irreg - not tachy now. ? diastolic murmur Lungs diminished Abd soft No edema I/P 1. CHF 2. Hyperthyroid Further diagnoses and plan as above.
--- NOTE | 2017-09-22 10:59 | Electrocardiograph Report ---
[place] [id number] Test Date: 2017-09-20 Pat Name: Didier Mcdaniels Department: 103 Room: [id number] Gender: F [address]: : 1955 Requested By: Ronnell Reid Order Number: [id number] Reading MD: Gypsy Zendejas Measurements Intervals [place] Rate: 134 P: NV: 0 QRS: 15 QRSD: 87 T: 0 QT: 336 QTc: 415 Interpretive Statements ATRIAL FIBRILLATION WITH RAPID VENTRICULAR RESPONSE NONSPECIFIC ST & T-WAVE ABNORMALITY ABNORMAL RHYTHM ECG Electronically Signed On 09-22-2017 10:58:15 EDT by Gypsy Zendejas
[2017-09-23 03:27] LABS: Basophils % 0.2 %; Hematocrit 27.4 % (35.3-44.9); Hemoglobin 8.3 g/dL (11.5-15.4); Immature Granulocytes % 0.4 % (0-4); Lymphocytes # 1.3 K/mcL (0.6-4.6); Lymphocytes % 23.3 %; Mean Corpuscular HGB Conc 30.3 g/dL (31.6-35.5); Mean Corpuscular Hemoglobin 25.6 pg (28.0-33.3); Mean Corpuscular Volume 84.6 fL (83.0-100.0); Mean Platelet Volume 12.6 fL (9.4-12.4); Monocytes # 0.5 K/mcL (0.0-1.3); Monocytes % 9.2 %; Neutrophils # 3.8 K/mcL (1.6-8.9); Platelet Count 143 K/mcL (140-400); Red Blood Count 3.24 M/mcL (3.82-4.97); Red Cell Distribution Width 19.1 % (11.5-14.5); Segmented Neutrophils % 66.9 %
[2017-09-23 03:43] LABS: Alanine Aminotransferase 17 Units/L (0-55); Albumin/Globulin Ratio 0.5 (1.1-2.2); Alkaline Phosphatase 239 Units/L (38-126); Aspartate Amino Transferase 19 Units/L (5-34); BUN/Creatinine Ratio 41 (6-26); Blood Urea Nitrogen 21 mg/dL (7-20); Calcium 8.1 mg/dL (8.6-10.8); Carbon Dioxide 31 mEq/L (19-29); Chloride 108 mEq/L (98-109); Globulin 3.9 g/dL (2.4-3.5); Glucose 132 mg/dL (70-99); Osmolality,Calculated 299 (280-300); Potassium 4.5 mEq/L (3.5-4.5); Sodium 142 mEq/L (136-145); Total Protein 5.7 g/dL (6.0-8.3); eGFR For African Americans > 60 (> 60); eGFR For Non-African Americans > 60 (> 60)
[2017-09-23 03:44] LABS: Albumin 1.8 g/dL (3.5-5.0)
[2017-09-23] MEDS: Ipratropium/Albuterol Neb 3 ML IH SCH ×4 (04:20→21:51)
[2017-09-23] MEDS: Cholestyramine 4 GM POWD.PACK PO SCH ×4 (09:36→23:21)
[2017-09-23] MEDS: Furosemide 20 MG/2 ML VIAL IVP SCH ×3 (09:38→16:15)
[2017-09-23] MEDS: Metoprolol XL (24 HR) Succ 50 MG TAB.ER.24H PO SCH ×2 (09:40→23:20)
[2017-09-23] MEDS: Folic Acid 1 MG TABLET PO SCH (09:41)
[2017-09-23] MEDS: Lisinopril 20 MG TABLET PO SCH (09:41)
[2017-09-23] MEDS: Pregabalin 75 MG CAPSULE PO SCH ×2 (09:42→23:21)
[2017-09-23] MEDS: predniSONE 20 MG TABLET PO SCH (09:42)
[2017-09-23] MEDS: *HR* OxyCODONE ER (12 HR) 10 MG TABLET PO SCH ×2 (09:42→23:20)
[2017-09-23] MEDS: Aspirin Enteric Coated 325 MG Tablet PO SCH (09:43)
[2017-09-23] MEDS: Venlafaxine XR (24 HR) 150 MG CAP.ER.24H PO SCH (09:43)
[2017-09-23] MEDS: APIXABAN 5 MG TABLET PO SCH (09:46)
--- NOTE | 2017-09-23 09:58 | Internal Med Progress Note ---
<Keely Crawford - Last Filed: 09/23/17 13:08> Date of Encounter: 09/23/17 Time of Encounter: 09:15 - Assessment and plan (1) Acute blood loss anemia Current Visit: Yes Status: Acute Assessment and plan: - Hgb 9.7 on admissin but dropped to 8.4 on 09/22/17. Stable at 8.3 today. - Likely from GI bleed given positive stool occult test on 09/20/17 and patient reports episode of pink color in stool last night. - Continue BID PPI and hold Eliquis. - Continue to monitor and consider pRBC transfusion if Hgb < 7.0 - Patient cannot recall when is her last EGD or colonoscopy done. Patient will benefit from scope and consider GI consult on Sunday. (2) Hyperthyroidism Current Visit: Yes Status: Chronic Assessment and plan: - Known history of chronic hyperthyroidism. - Per patient, she was not able to make it to her endocrinology appointments for management of her hyperthyroidism and was previously scheduled for an outpatient thyroid uptake scan. - TSH is 0.000 and free T4 2.99 on admission. - Continue prophylthioracil. - Continue cholestyramine to reduce enterohepatic recycling of thyroid hormones , consider hydrocortisone if not improving with prednisone - Avoid non-selective beta blockers such as Propanolol which can cross blood brain barrier and potentially aggravate patient's depression - Patient will need outpatient follow-up with residential interior designer Dr. Noel (3) Acute exacerbation of CHF (congestive heart failure) Current Visit: Yes Status: Acute Assessment and plan: - Shortness of breath with bilateral lower extremity edema and BNP 2548 on initial presentation. - CXR on 09/20/17 showed bilateral pleural effusions. - Echocardiogram on 08/13/17 showed LVEF 60% with indeterminate LV diastolic function. - CT A/P showed cardiomegaly with large bilateral pleural effusions, trace abdominal ascites, and diffuse anasarca. No acute abdominopelvic process noted. - Continue Lasix 20 mg IV TID. - Continue Metoprolol and lisinopril. - Strict I/O, daily weight. Qualifiers: Congestive heart failure type: diastolic Qualified Code(s): I50.33 - Acute on chronic diastolic (congestive) heart failure (4) Atrial fibrillation Current Visit: No Status: Chronic Assessment and plan: - Currently rate controlled. - Continue Toprol XL. - Hold Eliquis for now given concern of GI bleed. Qualifiers: Atrial fibrillation type: persistent Qualified Code(s): I48.1 - Persistent atrial fibrillation (5) Depression Current Visit: No Status: Acute Assessment and plan: - Continue Effexor 150 mg PO daily. Qualifiers: Depression Type: reactive depression Qualified Code(s): F32.9 - Major depressive disorder, single episode, unspecified (6) CAD (coronary artery disease) Current Visit: No Status: Chronic Assessment and plan: - History of chronic CAD. - Continue metoprolol, lisinopril, Lipitor, and aspirin. Qualifiers: Coronary Disease-Associated Artery/Lesion type: [place] artery [place] vs. transplanted heart: [place] heart Associated angina: without angina Qualified Code(s): I25.10 - Atherosclerotic heart disease of [place] coronary artery without angina pectoris (7) Weakness generalized Current Visit: Yes Status: Acute Assessment and plan: - History of multiples episodes of syncope and falls - CT of the head/brain w/o contrast shows no acute intracranial abnormality. - MRI of head/brain reveals mild senescent changes, otherwise unremarkable brain MRI with and without contrast. - Bilateral carotid Doppler duplex imaging reveals nonstenotic plaque bilaterally - Falls/safety precautions. - GI panel negative for C. diff - PT/OT consulted - Social service on board for discharge planning. Patient will go to [facility] upon discharge. - Subjective Interval history: Patient was seen and examined this morning. Patient complains of bilateral lower extremity soreness. Patient also reports seeing pink color with her bowel movement last night. Patient denies chest pain, abdominal pain, shortness of breath. - Constitutional Vitals: Temp Pulse Resp BP Pulse Ox 98.9 F 65 16 123/61 94 09/23/17 07:36 09/23/17 07:36 09/23/17 07:36 09/23/17 07:36 09/23/17 07:36 General appearance: Present: cachectic, cooperative, A&O X 1 ([place] to self only.), no acute distress - Head Head exam: Present: atraumatic, normocephalic - Eye Eye exam: Present: EOMI, conjuntiva pink, sclera anicteric - Neck Neck exam general surgery: Present: supple, trachea midline. Absent: lymphadenopathy - Respiratory Respiratory exam: Present: decreased breath sounds. Absent: accessory muscle use, rales, rhonchi, wheezes - Cardiovascular Cardiovascular exam: Present: RRR, +S1, +S2. Absent: diastolic murmur, gallop, rubs, systolic murmur - GI/Abdominal GI/Abdominal exam: Present: normal bowel sounds, soft, no peritoneal signs. Absent: distended, tenderness - Extremities Exam Extremities exam: Present: pedal edema (Mild to moderate, stable compared to yesterday), warm, radial pulses palpable and symmetrical. Absent: cyanotic - Neurological Exam Neurological exam: Present: no focal deficits. Absent: facial droop, speech deficit - Skin Skin exam: Present: dry, warm Internal Medicine: Result - Labs CBC & Chem 7: 09/23/17 03:15 09/23/17 03:15 Labs: Short CBC 09/23/17 Range/Units 03:15 WBC 5.7 (4.3-11.1) K/mcL Hgb 8.3 L (11.5-15.4) g/dL Hct 27.4 L (35.3-44.9) % Plt Count 143 (140-400) K/mcL Neutrophils # 3.8 (1.6-8.9) K/mcL BMP 09/23/17 03:15 Sodium 142 Potassium 4.5 Chloride 108 Carbon Dioxide 31 H BUN 21 H Creatinine 0.51 L Glucose 132 H Calcium 8.1 L Liver Function 09/23/17 Range/Units 03:15 Total Bilirubin 1.0 (0.2-1.2) mg/dL AST 19 (5-34) Units/L ALT 17 (0-55) Units/L Alkaline Phosphatase 239 H (38-126) Units/L Albumin 1.8 L (3.5-5.0) g/dL - ABG Interpretation ABG results: PT/INR, D-dimer PT 29.5 Seconds (9.4-12.1) H 09/21/17 04:44 - VTE Documentation of Mechanical Device: Graduated compression elastic hosiery Consult Discharge Plan - Plan Referrals: Alpa Lee, [facility] [Primary Care Provider] - <Dagoberto Mcdaniels - Last Filed: 09/23/17 15:28> Date of Encounter: 09/23/17 - Assessment and plan (1) Acute exacerbation of CHF (congestive heart failure) Current Visit: Yes Status: Acute Qualifiers: Congestive heart failure type: diastolic Qualified Code(s): I50.33 - Acute on chronic diastolic (congestive) heart failure (2) Hyperthyroidism Current Visit: Yes Status: Chronic (3) Anemia Current Visit: Yes Status: Chronic Qualifiers: Anemia type: iron deficiency Iron deficiency anemia type: chronic blood loss Qualified Code(s): D50.0 - Iron deficiency anemia secondary to blood loss (chronic) (4) CAD (coronary artery disease) Current Visit: No Status: Chronic Qualifiers: Coronary Disease-Associated Artery/Lesion type: [place] artery [place] vs. transplanted heart: [place] heart Associated angina: without angina Qualified Code(s): I25.10 - Atherosclerotic heart disease of [place] coronary artery without angina pectoris (5) Type 2 diabetes mellitus Current Visit: No Status: Chronic Qualifiers: Diabetes mellitus complication status: without complication Diabetes mellitus snf insulin use: without terminal computer operator use Qualified Code(s): E11.9 - Type 2 diabetes mellitus without complications (6) Chronic respiratory failure with hypoxia Current Visit: No Status: Chronic (7) Atrial fibrillation Current Visit: No Status: Chronic Qualifiers: Atrial fibrillation type: persistent Qualified Code(s): I48.1 - Persistent atrial fibrillation (8) Depression Current Visit: No Status: Acute Qualifiers: Depression Type: reactive depression Qualified Code(s): F32.9 - Major depressive disorder, single episode, unspecified - Constitutional Vitals: Temp Pulse Resp BP Pulse Ox 98.9 F 65 16 123/61 91 09/23/17 07:36 09/23/17 07:36 09/23/17 10:30 09/23/17 07:36 09/23/17 10:30 Internal Medicine: Result - Labs CBC & Chem 7: 09/23/17 03:15 09/23/17 03:15 Labs: Short CBC 09/23/17 Range/Units 03:15 WBC 5.7 (4.3-11.1) K/mcL Hgb 8.3 L (11.5-15.4) g/dL Hct 27.4 L (35.3-44.9) % Plt Count 143 (140-400) K/mcL Neutrophils # 3.8 (1.6-8.9) K/mcL BMP 09/23/17 03:15 Sodium 142 Potassium 4.5 Chloride 108 Carbon Dioxide 31 H BUN 21 H Creatinine 0.51 L Glucose 132 H Calcium 8.1 L Liver Function 09/23/17 Range/Units 03:15 Total Bilirubin 1.0 (0.2-1.2) mg/dL AST 19 (5-34) Units/L ALT 17 (0-55) Units/L Alkaline Phosphatase 239 H (38-126) Units/L Albumin 1.8 L (3.5-5.0) g/dL - ABG Interpretation ABG results: PT/INR, D-dimer PT 29.5 Seconds (9.4-12.1) H 09/21/17 04:44 - Attending Attestation I examined this patient and my medical decision-making was reviewed with the Resident Physician on 09/23/17. I agree with the documented findings, disposition and treatment plan as described except to the extent set forth below. Ms Mcdaniels is currently admitted for acute CHF and hyperthyroidism. She remains moderate to high risk due to potential for worsening resp symptoms. Ms Mcdaniels feels OK. She is anemic and had "pink" in her stool last night. No CP now. Less dyspneic. Less tachy. No fever or chills. No abd pain. Exam Alert. Comfortable Heart irreg - not tachy at this time. Lungs diminished with scattered rales Abd soft - increased bowel sounds No edema I/P 1. Acute CHF 2. Hyperthyroid 3. Anemia - ? GI bleed. GI eval tomorrow. Further diagnoses and plan as above.
[2017-09-23] MEDS: *HR* OxyCODONE/APAP 10/325 TABLET PO PRN (16:26)
[2017-09-24] MEDS: Ipratropium/Albuterol Neb 3 ML IH SCH ×4 (03:35→22:42)
[2017-09-24 04:59] LABS: Hematocrit 30.1 % (35.3-44.9); Hemoglobin 9.1 g/dL (11.5-15.4); Immature Granulocytes % 0.1 % (0-4); Lymphocytes # 1.6 K/mcL (0.6-4.6); Lymphocytes % 22.3 %; Mean Corpuscular HGB Conc 30.2 g/dL (31.6-35.5); Mean Corpuscular Hemoglobin 25.6 pg (28.0-33.3); Mean Corpuscular Volume 84.6 fL (83.0-100.0); Mean Platelet Volume 12.5 fL (9.4-12.4); Monocytes # 0.5 K/mcL (0.0-1.3); Monocytes % 6.9 %; Platelet Count 142 K/mcL (140-400); Red Blood Count 3.56 M/mcL (3.82-4.97); Segmented Neutrophils % 70.7 %
[2017-09-24 05:08] LABS: INR 1.7; Prothrombin Time 18.1 Seconds (9.4-12.1)
[2017-09-24 05:15] LABS: Alanine Aminotransferase 17 Units/L (0-55); Albumin/Globulin Ratio 0.5 (1.1-2.2); Alkaline Phosphatase 235 Units/L (38-126); Aspartate Amino Transferase 23 Units/L (5-34); BUN/Creatinine Ratio 30 (6-26); Bilirubin,Total 1.3 mg/dL (0.2-1.2); Blood Urea Nitrogen 13 mg/dL (7-20); Calcium 7.9 mg/dL (8.6-10.8); Carbon Dioxide 28 mEq/L (19-29); Chloride 106 mEq/L (98-109); Glucose 80 mg/dL (70-99); Osmolality,Calculated 289 (280-300); Potassium 3.7 mEq/L (3.5-4.5); Sodium 140 mEq/L (136-145); Total Protein 5.9 g/dL (6.0-8.3); eGFR For African Americans > 60 (> 60); eGFR For Non-African Americans > 60 (> 60)
[2017-09-24 05:18] LABS: Albumin 1.9 g/dL (3.5-5.0)
--- NOTE | 2017-09-24 07:29 | Internal Med Progress Note ---
<Jackson Babb - Last Filed: 09/24/17 09:49> Date of Encounter: 09/24/17 Time of Encounter: 07:28 - Assessment and plan (1) Acute blood loss anemia Current Visit: Yes Status: Acute Assessment and plan: Hgb 9.7 on admissin but dropped to 8.4 on 09/22/17. Stable today. Likely from GI bleed given positive stool occult test on 09/20/17 and patient reports episode of pink color in stool last night. Continue BID PPI and hold Eliquis for now given concern of GI bleed Continue to monitor and consider pRBC transfusion if Hgb < 7.0 Patient cannot recall when is her last EGD or colonoscopy done. Patient will benefit from scope GI consulted (2) Acute encephalopathy Current Visit: Yes Status: Acute Assessment and plan: Likely multifactorial due to anemia, hyperthyroidism, depression, and acute CHF Continue to monitor (3) MDD (major depressive disorder) Current Visit: Yes Status: Acute Assessment and plan: Pastient is not eating, reports in June Increased home dose of Effexor from 75 to 150mg daily Continue outpatient monitoring Qualifiers: Major depression recurrence: recurrent Major depression episode severity: severe Psychotic features: without psychotic features Qualified Code(s): F33.2 - Major depressive disorder, recurrent severe without psychotic features (4) Severe protein-calorie malnutrition Current Visit: Yes Status: Acute Assessment and plan: Chronic cachexia with weight of 55.9 kg and BMI of 21.8. Severe loss of subcuticular fat, temporal wasting, she has lost 35 lbs in the past year and is on Megace for appetite stimulation. Continue Megace for appetite stimulation. PO supplementation: Ensure TID Nutrition consulted (5) Hyperthyroidism Current Visit: Yes Status: Chronic Assessment and plan: Known history of chronic hyperthyroidism. Per patient, she was not able to make it to her endocrinology appointments for management of her hyperthyroidism and was previously scheduled for an outpatient thyroid uptake scan. TSH is 0.000 and free T4 2.99 on admission. Continue prophylthioracil. Continue cholestyramine to reduce enterohepatic recycling of thyroid hormones, consider hydrocortisone if not improving with prednisone Avoid non-selective beta blockers such as Propanolol which can cross blood brain barrier and potentially aggravate patient's depression Patient will need outpatient follow-up with java manager Dr. Noel (6) Weakness generalized Current Visit: Yes Status: Acute Assessment and plan: History of multiples episodes of syncope and falls CT of the head/brain w/o contrast shows no acute intracranial abnormality. MRI of head/brain reveals mild senescent changes, otherwise unremarkable brain MRI with and without contrast. Bilateral carotid Doppler duplex imaging reveals nonstenotic plaque bilaterally Falls/safety precautions. GI panel negative for C. diff PT/OT consulted Social service on board for discharge planning. Patient will go to [facility] upon discharge. (7) Diastolic CHF, acute on chronic Current Visit: Yes Status: Acute Assessment and plan: Acute exacerbation of CHF, BNP 2548, pedal edema CXR reveals bilateral pleural effusions. Echocardiogram in June 2017 revealed LVEF of 60%. CT of the abdomen and pelvis reveals cardiomegaly with large bilateral pleural effusions, trace abdominal ascites, and diffuse anasarca. No acute abdominopelvic process demonstrated. Continue cardiac telemetry. Serail troponins: 0.03 --> 0.03 --> 0.02 IVP lasix 20 mg TID. Continue Metoprolol, and lisinopril. Hold hydrochlorothiazide Monitor f/u labs and patient for signs of fluid overload. (8) Atrial fibrillation with RVR Current Visit: Yes Status: Acute Assessment and plan: Rate controlled off Cardizem drip Continue home Metoprolol XL Hold Eliquis for now given concern of GI bleed (9) CAD (coronary artery disease) Current Visit: No Status: Chronic Assessment and plan: History of chronic CAD. Continue metoprolol, lisinopril, Lipitor, and aspirin. Qualifiers: Coronary Disease-Associated Artery/Lesion type: [place] artery [place] vs. transplanted heart: [place] heart Associated angina: without angina Qualified Code(s): I25.10 - Atherosclerotic heart disease of [place] coronary artery without angina pectoris (10) HTN (hypertension) Current Visit: Yes Status: Chronic Assessment and plan: Hx of chronic HTN. Monitor patient and VS. Continue metoprolol, and lisinopril. Qualifiers: Hypertension type: essential hypertension Qualified Code(s): I10 - Essential (primary) hypertension (11) COPD (chronic obstructive pulmonary disease) Current Visit: No Status: Chronic Assessment and plan: Not in acute exacerbation Continue Duonebs Qualifiers: COPD type: unspecified COPD Qualified Code(s): J44.9 - Chronic obstructive pulmonary disease, unspecified (12) Type 2 diabetes mellitus Current Visit: No Status: Chronic Assessment and plan: HGB a1c 4.7 Continue to monitor Qualifiers: Diabetes mellitus complication status: without complication Diabetes mellitus director long term care insulin use: without director long term care use Qualified Code(s): E11.9 - Type 2 diabetes mellitus without complications (13) Bladder cancer Current Visit: Yes Status: Acute Assessment and plan: Patient reports no current treatment at this time Denies hematuria 35lbs weight loss in the past 1 year Started on Megace for appetite stimulation Qualifiers: Bladder location: unspecified site Qualified Code(s): C67.9 - Malignant neoplasm of bladder, unspecified (14) Hypokalemia Current Visit: Yes Status: Resolved Assessment and plan: K 2.8 --> 4.1 Continue to monitor (15) Hypomagnesemia Current Visit: Yes Status: Resolved Assessment and plan: Mag 1.5 --> 1.9 Continue to monitor (16) DVT prophylaxis Current Visit: Yes Status: Acute Assessment and plan: Hold Eliquis for now given concern of GI bleed - Subjective Interval history: Patient seen and examined. She is A&O x2 today and reports abdominal discomfort and chronic back pain. GI consulted to day due to occult positive stool. - Constitutional Vitals: Temp Pulse Resp BP Pulse Ox 97.8 F 64 18 165/72 96 09/24/17 05:00 09/24/17 05:00 09/24/17 05:00 09/24/17 05:00 09/24/17 05:00 General appearance: Present: cachectic, cooperative, A&O X 2, no acute distress. Absent: answers questions appropriately - Head Head exam: Present: atraumatic, normocephalic Additional comments: temporal wasting - Eye Eye exam: Present: conjuntiva pink, sclera anicteric - ENT ENT exam: Present: mucous membranes moist, normal oropharynx - Neck Neck exam general surgery: Present: normal inspection, supple, trachea midline. Absent: thyromegaly - Respiratory Respiratory exam: Present: CTAB. Absent: chest wall tenderness, decreased breath sounds, rales, rhonchi, wheezes - Cardiovascular Cardiovascular exam: Present: irregular rhythm, +S1, +S2 - GI/Abdominal GI/Abdominal exam: Present: normal bowel sounds, soft, tenderness (diffuse). Absent: distended, guarding - Additional comments: no verduzco - Extremities Exam Extremities exam: Present: full ROM, pedal edema (1+), warm, radial pulses palpable and symmetrical Additional comments: severe loss of subcuticular fat, muscle wasting - Back Exam Back exam: Present: normal inspection, tenderness, vertebral tenderness (T-spine ). Absent: paraspinal tenderness - Neurological Exam Neurological exam: Present: altered, no focal deficits. Absent: oriented X3, speech deficit - Psychiatric Additional comments: unable to assess - Skin Skin exam: Present: dry, intact, warm. Absent: erythema Internal Medicine: Result - Labs CBC & Chem 7: 09/24/17 04:33 09/24/17 04:33 Labs: Short CBC 09/24/17 Range/Units 04:33 WBC 7.1 (4.3-11.1) K/mcL Hgb 9.1 L (11.5-15.4) g/dL Hct 30.1 L (35.3-44.9) % Plt Count 142 (140-400) K/mcL Neutrophils # 5.0 (1.6-8.9) K/mcL BMP 09/24/17 04:33 Sodium 140 Potassium 3.7 Chloride 106 Carbon Dioxide 28 BUN 13 Creatinine 0.44 L Glucose 80 Calcium 7.9 L Liver Function 09/24/17 Range/Units 04:33 Total Bilirubin 1.3 H (0.2-1.2) mg/dL AST 23 (5-34) Units/L ALT 17 (0-55) Units/L Alkaline Phosphatase 235 H (38-126) Units/L Albumin 1.9 L (3.5-5.0) g/dL - ABG Interpretation ABG results: PT/INR, D-dimer PT 18.1 Seconds (9.4-12.1) H 09/24/17 04:33 - Pulse Oximetry Interpretation Digit-Finger Pulse Oximetry Readin (on RA) - VTE Documentation of Mechanical Device: Graduated compression elastic hosiery Consult Discharge Plan - Plan Referrals: Alpa Lee, [facility] [Primary Care Provider] - <Dagoberto Mcdaniels - Last Filed: 09/24/17 16:25> Date of Encounter: 09/24/17 - Assessment and plan (1) Acute exacerbation of CHF (congestive heart failure) Current Visit: Yes Status: Acute Qualifiers: Congestive heart failure type: diastolic Qualified Code(s): I50.33 - Acute on chronic diastolic (congestive) heart failure (2) Hyperthyroidism Current Visit: Yes Status: Chronic (3) Anemia Current Visit: Yes Status: Chronic Qualifiers: Anemia type: iron deficiency Iron deficiency anemia type: chronic blood loss Qualified Code(s): D50.0 - Iron deficiency anemia secondary to blood loss (chronic) (4) CAD (coronary artery disease) Current Visit: No Status: Chronic Qualifiers: Coronary Disease-Associated Artery/Lesion type: [place] artery [place] vs. transplanted heart: [place] heart Associated angina: without angina Qualified Code(s): I25.10 - Atherosclerotic heart disease of [place] coronary artery without angina pectoris (5) Type 2 diabetes mellitus Current Visit: No Status: Chronic Qualifiers: Diabetes mellitus complication status: without complication Diabetes mellitus director long term care insulin use: without snf use Qualified Code(s): E11.9 - Type 2 diabetes mellitus without complications (6) Chronic respiratory failure with hypoxia Current Visit: No Status: Chronic (7) Atrial fibrillation Current Visit: No Status: Chronic Qualifiers: Atrial fibrillation type: persistent Qualified Code(s): I48.1 - Persistent atrial fibrillation (8) Depression Current Visit: No Status: Acute Qualifiers: Depression Type: reactive depression Qualified Code(s): F32.9 - Major depressive disorder, single episode, unspecified - Constitutional Vitals: Temp Pulse Resp BP Pulse Ox 98.3 F 61 16 133/77 98 09/24/17 07:00 09/24/17 15:00 09/24/17 16:15 09/24/17 15:00 09/24/17 16:15 Internal Medicine: Result - Labs CBC & Chem 7: 09/24/17 04:33 09/24/17 04:33 Labs: Short CBC 09/24/17 Range/Units 04:33 WBC 7.1 (4.3-11.1) K/mcL Hgb 9.1 L (11.5-15.4) g/dL Hct 30.1 L (35.3-44.9) % Plt Count 142 (140-400) K/mcL Neutrophils # 5.0 (1.6-8.9) K/mcL BMP 09/24/17 04:33 Sodium 140 Potassium 3.7 Chloride 106 Carbon Dioxide 28 BUN 13 Creatinine 0.44 L Glucose 80 Calcium 7.9 L Liver Function 09/24/17 Range/Units 04:33 Total Bilirubin 1.3 H (0.2-1.2) mg/dL AST 23 (5-34) Units/L ALT 17 (0-55) Units/L Alkaline Phosphatase 235 H (38-126) Units/L Albumin 1.9 L (3.5-5.0) g/dL - ABG Interpretation ABG results: PT/INR, D-dimer PT 18.1 Seconds (9.4-12.1) H 09/24/17 04:33 - Attending Attestation I examined this patient and my medical decision-making was reviewed with the Resident Physician on 09/24/17. I agree with the documented findings, disposition and treatment plan as described except to the extent set forth below. Ms Mcdaniels is currently admitted for acute exac CHF, anemia and hyperthyroid. She remains moderate to high risk due to potential for worsening respiratory status. Ms Mcdaniels is resting comfortably. No complaints at this time. No fever or chills. No CP. NPO for any GI issues. Exam Alert. Comfortable Mucus membranes moist Heart irreg Lungs diminished Abd soft I/P 1. Exac CHF 2. Hyperthyroid Further diagnoses and plan as above.
[2017-09-24] MEDS: Venlafaxine XR (24 HR) 150 MG CAP.ER.24H PO SCH (08:29)
[2017-09-24] MEDS: Folic Acid 1 MG TABLET PO SCH (08:29)
[2017-09-24] MEDS: Lisinopril 20 MG TABLET PO SCH (08:29)
[2017-09-24] MEDS: Pregabalin 75 MG CAPSULE PO SCH ×2 (08:30→21:38)
[2017-09-24] MEDS: predniSONE 20 MG TABLET PO SCH (08:31)
[2017-09-24] MEDS: Aspirin Enteric Coated 325 MG Tablet PO SCH (08:32)
[2017-09-24] MEDS: *HR* OxyCODONE ER (12 HR) 10 MG TABLET PO SCH ×2 (08:32→21:38)
[2017-09-24] MEDS: Metoprolol XL (24 HR) Succ 50 MG TAB.ER.24H PO SCH ×2 (08:32→21:37)
[2017-09-24] MEDS: Cholestyramine 4 GM POWD.PACK PO SCH ×4 (08:33→21:39)
[2017-09-24] MEDS: Furosemide 20 MG/2 ML VIAL IVP SCH ×4 (08:33→17:57)
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
[2017-09-25 03:35] LABS: Bilirubin,Urine Negative (Negative); Blood,Urine Negative (Negative); Clarity,Urine Cloudy (Clear); Color,Urine Yellow (Yellow); Glucose,Urine (UA) Normal (Normal); Ketones,Urine Negative (Negative); Leukocyte Esterase,Urine Negative (Negative); Nitrite,Urine Negative (Negative); Protein,Urine Negative (Neg-Trace); Specific Gravity,Urine 1.013 (1.010-1.025); Urobilinogen,Urine Normal (Normal)
[2017-09-25 03:37] LABS: Bacteria,Urine None Seen per hpf (None-Few); Hyaline Casts,Urine None Seen per lpf (None-Few); RBC,Urine 0-3 per hpf (0-3); Squamous Epithelial Cell,Urine Many per lpf (None-Few); WBC,Urine 0-3 per hpf (0-3)
[2017-09-25] MEDS: Ipratropium/Albuterol Neb 3 ML IH SCH ×4 (03:52→22:26)
[2017-09-25 05:58] LABS: Eosinophils % 0.2 %; Hematocrit 30.9 % (35.3-44.9); Hemoglobin 9.4 g/dL (11.5-15.4); Immature Granulocytes % 0.6 % (0-4); Lymphocytes # 1.3 K/mcL (0.6-4.6); Lymphocytes % 25.7 %; Mean Corpuscular HGB Conc 30.4 g/dL (31.6-35.5); Mean Corpuscular Hemoglobin 25.1 pg (28.0-33.3); Mean Corpuscular Volume 82.6 fL (83.0-100.0); Mean Platelet Volume 12.1 fL (9.4-12.4); Monocytes # 0.4 K/mcL (0.0-1.3); Monocytes % 8.4 %; Neutrophils # 3.3 K/mcL (1.6-8.9); Platelet Count 146 K/mcL (140-400); Red Blood Count 3.74 M/mcL (3.82-4.97); Red Cell Distribution Width 18.5 % (11.5-14.5); Segmented Neutrophils % 65.1 %
[2017-09-25 06:20] LABS: Alanine Aminotransferase 13 Units/L (0-55); Albumin/Globulin Ratio 0.5 (1.1-2.2); Alkaline Phosphatase 212 Units/L (38-126); Aspartate Amino Transferase 19 Units/L (5-34); BUN/Creatinine Ratio 28 (6-26); Bilirubin,Total 1.4 mg/dL (0.2-1.2); Blood Urea Nitrogen 11 mg/dL (7-20); Calcium 7.8 mg/dL (8.6-10.8); Carbon Dioxide 27 mEq/L (19-29); Chloride 105 mEq/L (98-109); Globulin 3.7 g/dL (2.4-3.5); Glucose 66 mg/dL (70-99); Osmolality,Calculated 286 (280-300); Potassium 3.2 mEq/L (3.5-4.5); Sodium 139 mEq/L (136-145); Total Protein 5.4 g/dL (6.0-8.3); eGFR For African Americans > 60 (> 60); eGFR For Non-African Americans > 60 (> 60)
[2017-09-25 06:23] LABS: Albumin 1.7 g/dL (3.5-5.0)
[2017-09-25] MEDS ORDERED: Potassium Effervescent 25 MEQ TABLET.EFF PO ONE (07:08)
[2017-09-25] MEDS: Furosemide 20 MG/2 ML VIAL IVP SCH ×3 (08:34→17:47)
[2017-09-25] MEDS: Cholestyramine 4 GM POWD.PACK PO SCH ×4 (08:34→23:08)
[2017-09-25] MEDS ORDERED: Potassium Chloride 20 MEQ, Lidocaine 1% 2 ML in D5% in Water 250 ML IVPB ONE (10:21)
--- NOTE | 2017-09-25 10:21 | Internal Med Progress Note ---
<Jackson Babb - Last Filed: 09/25/17 14:25> Date of Encounter: 09/25/17 Time of Encounter: 08:00 - Assessment and plan (1) Acute blood loss anemia Current Visit: Yes Status: Acute Assessment and plan: Hgb 9.7 on admissin but dropped to 8.4 on 09/22/17. Stable today. Likely from GI bleed given positive stool occult test on 09/20/17 and patient reports episode of pink color in stool. Continue BID PPI and hold Eliquis for now given concern of GI bleed Continue to monitor and consider pRBC transfusion if Hgb < 7.0 Patient cannot recall when is her last EGD or colonoscopy done. Patient will benefit from scope GI following NPO after midnight, anticipate EGD tomorrow Patient is more alert today, will likely start bowel prep tonight and have colonoscopy tomorrow (2) Acute encephalopathy Current Visit: Yes Status: Acute Assessment and plan: Resolving. Likely multifactorial due to anemia, hyperthyroidism, depression, and acute CHF Continue to monitor (3) MDD (major depressive disorder) Current Visit: Yes Status: Acute Assessment and plan: Pastient is not eating, reports in June Increased home dose of Effexor from 75 to 150mg daily Continue outpatient monitoring Qualifiers: Major depression recurrence: recurrent Active/Remission status: currently active Major depression episode severity: severe Psychotic features: without psychotic features Qualified Code(s): F33.2 - Major depressive disorder, recurrent severe without psychotic features (4) Severe protein-calorie malnutrition Current Visit: Yes Status: Acute Assessment and plan: Chronic cachexia with weight of 55.9 kg and BMI of 16.8 Severe loss of subcuticular fat, temporal wasting, she has lost 35 lbs in the past year and is on Megace for appetite stimulation. Continue Megace for appetite stimulation. PO supplementation: Ensure TID Nutrition consulted (5) Hyperthyroidism Current Visit: Yes Status: Chronic Assessment and plan: Known history of chronic hyperthyroidism. Per patient, she was not able to make it to her endocrinology appointments for management of her hyperthyroidism and was previously scheduled for an outpatient thyroid uptake scan. TSH is 0.000 and free T4 2.99 on admission. Continue prophylthioracil. Continue cholestyramine to reduce enterohepatic recycling of thyroid hormones, consider hydrocortisone if not improving with prednisone Avoid non-selective beta blockers such as Propanolol which can cross blood brain barrier and potentially aggravate patient's depression Patient will need outpatient follow-up with musical instrument mechanic Dr. Noel (6) Weakness generalized Current Visit: Yes Status: Acute Assessment and plan: History of multiples episodes of syncope and falls CT of the head/brain w/o contrast shows no acute intracranial abnormality. MRI of head/brain reveals mild senescent changes, otherwise unremarkable brain MRI with and without contrast. Bilateral carotid Doppler duplex imaging reveals nonstenotic plaque bilaterally Falls/safety precautions. GI panel negative for C. diff RUQ u/s reveals Common bile duct is mildly prominent, likely related to prior cholecystectomy. Unremarkable sonographic appearance of the liver. PT/OT consulted Social service on board for discharge planning. Family refuses SNF placement upon discharge and requests [facility] arrangement. (7) Diastolic CHF, acute on chronic Current Visit: Yes Status: Acute Assessment and plan: Acute exacerbation of CHF, BNP 2548, pedal edema CXR reveals bilateral pleural effusions. Echocardiogram in June 2017 revealed LVEF of 60%. CT of the abdomen and pelvis reveals cardiomegaly with large bilateral pleural effusions, trace abdominal ascites, and diffuse anasarca. No acute abdominopelvic process demonstrated. Continue cardiac telemetry. Serail troponins: 0.03 --> 0.03 --> 0.02 IVP lasix 20 mg TID. Continue Metoprolol, and lisinopril. Hold hydrochlorothiazide Monitor f/u labs and patient for signs of fluid overload. (8) Atrial fibrillation with RVR Current Visit: Yes Status: Acute Assessment and plan: Rate controlled off Cardizem drip Continue home Metoprolol XL Hold Eliquis for now given concern of GI bleed (9) CAD (coronary artery disease) Current Visit: No Status: Chronic Assessment and plan: History of chronic CAD. Continue metoprolol, lisinopril, Lipitor, and aspirin. Qualifiers: Coronary Disease-Associated Artery/Lesion type: [place] artery [place] vs. transplanted heart: [place] heart Associated angina: without angina Qualified Code(s): I25.10 - Atherosclerotic heart disease of [place] coronary artery without angina pectoris (10) HTN (hypertension) Current Visit: Yes Status: Chronic Assessment and plan: Hx of chronic HTN. Monitor patient and VS. Continue metoprolol, and lisinopril. Qualifiers: Hypertension type: essential hypertension Qualified Code(s): I10 - Essential (primary) hypertension (11) COPD (chronic obstructive pulmonary disease) Current Visit: No Status: Chronic Assessment and plan: Not in acute exacerbation. Stop Prednisone Continue Duonebs Qualifiers: COPD type: unspecified COPD Qualified Code(s): J44.9 - Chronic obstructive pulmonary disease, unspecified (12) Type 2 diabetes mellitus Current Visit: No Status: Chronic Assessment and plan: HGB a1c 4.7 Continue to monitor Qualifiers: Diabetes mellitus complication status: without complication Diabetes mellitus parts counterman insulin use: without [facility] use Qualified Code(s): E11.9 - Type 2 diabetes mellitus without complications (13) Bladder cancer Current Visit: Yes Status: Acute Assessment and plan: Patient reports no current treatment at this time Denies hematuria 35lbs weight loss in the past 1 year Started on Megace for appetite stimulation Qualifiers: Bladder location: unspecified site Qualified Code(s): C67.9 - Malignant neoplasm of bladder, unspecified (14) Hypokalemia Current Visit: Yes Status: Acute Assessment and plan: Replace Potassium prn Continue to monitor (15) Hypomagnesemia Current Visit: Yes Status: Resolved Assessment and plan: Mag 1.5 --> 1.9 Continue to monitor (16) DVT prophylaxis Current Visit: Yes Status: Acute Assessment and plan: Hold Eliquis for now given concern of GI bleed - Subjective Interval history: Patient seen and examined. She reports blood in stool and chronic back pain. She is A&O x3 today and was alert enough to call her daughter on the phone. Case discussed with daughter and all questions answered. Patient will be NPO after midnight awaiting EGD tomorrow. Patient denies any other c/o at this time. - Constitutional Vitals: Temp Pulse Resp BP Pulse Ox 97.9 F 68 17 132/63 97 09/25/17 07:00 09/25/17 07:00 09/25/17 07:00 09/25/17 07:00 09/25/17 07:00 General appearance: Present: cachectic, cooperative, A&O X 3, no acute distress , answers questions appropriately - Head Head exam: Present: atraumatic, normal inspection, normocephalic - Eye Eye exam: Present: EOMI, conjuntiva pink, sclera anicteric - ENT ENT exam: Present: mucous membranes moist, normal oropharynx - Neck Neck exam general surgery: Present: normal inspection, supple, trachea midline. Absent: tenderness, thyromegaly - Respiratory Respiratory exam: Present: CTAB. Absent: accessory muscle use, respiratory distress, rhonchi, tachypnea - Cardiovascular Cardiovascular exam: Present: irregular rhythm, +S1, +S2 - GI/Abdominal GI/Abdominal exam: Present: normal bowel sounds, soft. Absent: distended, guarding, tenderness - Additional comments: no verduzco - Extremities Exam Extremities exam: Present: normal inspection, warm. Absent: pedal edema - Back Exam Back exam: Present: normal inspection, paraspinal tenderness (T spine), tenderness - Neurological Exam Neurological exam: Present: alert, oriented X3, no focal deficits. Absent: facial droop, speech deficit - Psychiatric Psychiatric exam: Present: normal affect, normal mood - Skin Skin exam: Present: dry, normal color, warm Internal Medicine: Result - Labs CBC & Chem 7: 09/25/17 04:54 09/25/17 04:54 Labs: Short CBC 09/25/17 Range/Units 04:54 WBC 5.0 (4.3-11.1) K/mcL Hgb 9.4 L (11.5-15.4) g/dL Hct 30.9 L (35.3-44.9) % Plt Count 146 (140-400) K/mcL Neutrophils # 3.3 (1.6-8.9) K/mcL BMP 09/25/17 04:54 Sodium 139 Potassium 3.2 L Chloride 105 Carbon Dioxide 27 BUN 11 Creatinine 0.40 L Glucose 66 L Calcium 7.8 L Liver Function 09/25/17 Range/Units 04:54 Total Bilirubin 1.4 H (0.2-1.2) mg/dL AST 19 (5-34) Units/L ALT 13 (0-55) Units/L Alkaline Phosphatase 212 H (38-126) Units/L Albumin 1.7 L (3.5-5.0) g/dL Urine 09/25/17 Range/Units 03:20 Urine Color Yellow (Yellow) Urine Clarity Cloudy A (Clear) Urine pH 8.0 (5.0-8.0) pH Units Ur Specific [place] 1.013 (1.010-1.025) Urine Protein Negative (Neg-Trace) mg/dL Urine Glucose (UA) Normal (Normal) mg/dL - ABG Interpretation ABG results: PT/INR, D-dimer PT 18.1 Seconds (9.4-12.1) H 09/24/17 04:33 - Pulse Oximetry Interpretation Digit-Finger Pulse Oximetry Readin (on ambient air) - Impressions Impressions Abdomen Ultrasound 09/24/17 17:00 IMPRESSION: Common bile duct is mildly prominent, likely related to prior cholecystectomy. Unremarkable sonographic appearance of the liver. Patient's known right-sided pleural effusion is again seen. D/ / Jovanna Orr MD / Jovanna Orr MD Interpreting Provider: Jovanna Orr MD - VTE Documentation of Mechanical Device: Graduated compression elastic hosiery Consult Discharge Plan - Plan Referrals: Alpa Lee, POLICE INVESTIGATOR [Primary Care Provider] - <Eulalio Perez - Last Filed: 09/25/17 17:05> Date of Encounter: 09/25/17 - Constitutional Vitals: Temp Pulse Resp BP Pulse Ox 97.9 F 51 17 109/51 97 09/25/17 15:00 09/25/17 15:00 09/25/17 15:00 09/25/17 15:00 09/25/17 15:00 Internal Medicine: Result - Labs CBC & Chem 7: 09/25/17 04:54 09/25/17 04:54 Labs: Short CBC 09/25/17 Range/Units 04:54 WBC 5.0 (4.3-11.1) K/mcL Hgb 9.4 L (11.5-15.4) g/dL Hct 30.9 L (35.3-44.9) % Plt Count 146 (140-400) K/mcL Neutrophils # 3.3 (1.6-8.9) K/mcL BMP 09/25/17 04:54 Sodium 139 Potassium 3.2 L Chloride 105 Carbon Dioxide 27 BUN 11 Creatinine 0.40 L Glucose 66 L Calcium 7.8 L Liver Function 09/25/17 Range/Units 04:54 Total Bilirubin 1.4 H (0.2-1.2) mg/dL AST 19 (5-34) Units/L ALT 13 (0-55) Units/L Alkaline Phosphatase 212 H (38-126) Units/L Albumin 1.7 L (3.5-5.0) g/dL Urine 09/25/17 Range/Units 03:20 Urine Color Yellow (Yellow) Urine Clarity Cloudy A (Clear) Urine pH 8.0 (5.0-8.0) pH Units Ur Specific [place] 1.013 (1.010-1.025) Urine Protein Negative (Neg-Trace) mg/dL Urine Glucose (UA) Normal (Normal) mg/dL - ABG Interpretation ABG results: PT/INR, D-dimer PT 18.1 Seconds (9.4-12.1) H 09/24/17 04:33 - Impressions Impressions Abdomen Ultrasound 09/24/17 17:00 IMPRESSION: Common bile duct is mildly prominent, likely related to prior cholecystectomy. Unremarkable sonographic appearance of the liver. Patient's known right-sided pleural effusion is again seen. D/ / Jovanna Orr MD / Jovanna Orr MD Interpreting Provider: Jovanna Orr MD - Attending Attestation I have seen and examined the patient independently. I have discussed with resident physician Dr Babb regarding the management plan. Agree with the documentation. Patient is admitted for A. fib RVR, right now heart rate is well controlled. Waiting for EGD and colonoscopy for suspected GI bleed. Continue PTU for hyperthyroidism and the patient needs to see musical instrument mechanic as well as she was discharged (no inpatient endocrinology consult available).
[2017-09-25 10:35] LABS: Magnesium 1.4 mg/dL (1.6-2.6); Phosphorous 2.8 mg/dL (2.3-4.7)
[2017-09-25] MEDS: Metoprolol XL (24 HR) Succ 50 MG TAB.ER.24H PO SCH ×2 (12:33→23:04)
[2017-09-25] MEDS: Pregabalin 75 MG CAPSULE PO SCH ×2 (12:33→23:00)
[2017-09-25] MEDS: *HR* OxyCODONE ER (12 HR) 10 MG TABLET PO SCH ×2 (12:33→23:02)
[2017-09-25] MEDS: Venlafaxine XR (24 HR) 150 MG CAP.ER.24H PO SCH (12:34)
[2017-09-25] MEDS: Lisinopril 20 MG TABLET PO SCH (12:34)
[2017-09-25] MEDS: Aspirin Enteric Coated 325 MG Tablet PO SCH (12:34)
[2017-09-25] MEDS: Folic Acid 1 MG TABLET PO SCH (12:34)
--- NOTE | 2017-09-25 13:38 | Anesthesia Evaluation PreOp ---
Date of Encounter: 09/25/17 Time of Encounter: 13:35 - Past History Planned Operation: EGD Cardiac History: CHF (maintained on Lasix. Acute on Chronic CHF this hospitalization, BNP > 2300), HTN (maintained on Lisinopril, Metoprolol,Hctz), Hyperlipidemia (maintaine don Simvastatin), Arrhythmia (AFib w/ RVR currently on Diltiazem, anticoagulated on Eliquis), Other (ECHO 08/13/2017 - Impressions: LVEF 60%. Normal left ventricular size and systolic function. Indeterminate left ventricular diastolic function. Normal right ventricular size and function. Mild aortic regurgitation. Mild mitral regurgitation. Mild tricuspid regurgitation. At least mild pulmonary hypertension by TR gradient. IVC is not visualized to estimate RVSP. A pleural effusion is present.) Pulmonary History: COPD, Other (Large B-pleural effusions) [employer] History: Syncope (Recent hx of syncope & falls), Other (Anxiety/Depression maintained on Xanax, Effexor. Chronic pain maintained on Lyrica) Other Medical History: Thyroid (Hyperthyroidism w/ TSH = 0.00 this admission; possible thyroid storm. Currently tx on Propylthiouracil, Propanolol), Other ( Generalized weakness,; Cachexia. Hx of Bladder Ca) Anesthesia History: No Prior Anesthetic Complications, Past Anesthesia (CABG x 2v, Tracee, Hyster, Bowel Surgery) Alcohol Use: none Drug use: none Medications and Allergies Folic Acid 2 mg PO DAILY 01/11/16 [History] Multivitamin/Iron/Folic Acid [Centrum Complete Multivit Tab] 1 tab PO DAILY [History] Nitroglycerin [Nitrostat] 0.4 mg SL Q5M PRN 01/11/16 [History] Simvastatin [Zocor] 20 mg PO HS 01/11/16 [History] Venlafaxine HCl [Effexor Xr] 75 mg PO DAILY 01/11/16 [History] Vitamin E 1,000 units PO DAILY 01/11/16 [History] ALPRAZolam [Xanax 1 MG Tablet] 1 mg PO TID 10/18/16 [History] Oxycodone HCl/Acetaminophen [Percocet 10-325 mg Tablet] 1 tab PO Q6H PRN [History] Lisinopril [Zestril] 40 mg PO DAILY #0 10/21/16 [Rx] Oxygen 3 l .ROUTE AD 04/06/17 [History] Propylthiouracil 50 mg PO TID #90 tablet 04/09/17 [Rx] Potassium Chloride [Klor-Con Sprinkle] 20 meq PO DAILY 07/15/17 [History] Pregabalin [Lyrica] 75 mg PO BID 07/15/17 [History] Metoprolol XL (24 HR) Succ [Toprol Xl] 75 mg PO BID #60 tab.er.24h 08/16/17 [Rx] Aspirin Enteric Coated [Aspirin EC] 325 mg PO DAILY 09/20/17 [History] Furosemide [Lasix] 40 mg PO DAILY PRN 09/20/17 [History] Megestrol Acetate 20 mg PO BID 09/20/17 [History] OxyCODONE ER (12 HR) [OxyCONTIN] 30 mg PO Q12H 09/20/17 [History] hydroCHLOROthiazide [Hydrochlorothiazide] 25 mg PO DAILY 09/20/17 [History] 3 Allergy/AdvReac Type Severity Reaction Status Date / Time morphine Allergy Unknown Unknown Verified 09/21/17 02:00 hydrocodone [From Vicodin] Allergy Swelling Verified 09/20/17 15:38 of Lip/Tongue/Throat - Meds/Allergy Pre-op Review Medications Reviewed: Yes Allergies Reviewed: Yes Beta Blockers on Current Med List: Yes Anesthesia Results - Labs 09/25/17 04:54 09/25/17 04:54 Laboratory Results WBC 5.0 K/mcL (4.3-11.1) 09/25/17 04:54 RBC 3.74 M/mcL (3.82-4.97) L 09/25/17 04:54 Hgb 9.4 g/dL (11.5-15.4) L 09/25/17 04:54 Hct 30.9 % (35.3-44.9) L 09/25/17 04:54 MCV 82.6 fL (83.0-100.0) L 09/25/17 04:54 MCH 25.1 pg (28.0-33.3) L 09/25/17 04:54 MCHC 30.4 g/dL (31.6-35.5) L 09/25/17 04:54 RDW 18.5 % (11.5-14.5) H 09/25/17 04:54 Plt Count 146 K/mcL (140-400) 09/25/17 04:54 MPV 12.1 fL (9.4-12.4) 09/25/17 04:54 Immature Gran % 0.6 % (0-4) 09/25/17 04:54 Seg Neutrophils % 65.1 % 09/25/17 04:54 Lymphocytes % 25.7 % 09/25/17 04:54 Monocytes % 8.4 % 09/25/17 04:54 Eosinophils % 0.2 % 09/25/17 04:54 Basophils % 0.0 % 09/25/17 04:54 Neutrophils # 3.3 K/mcL (1.6-8.9) 09/25/17 04:54 Lymphocytes # 1.3 K/mcL (0.6-4.6) 09/25/17 04:54 Monocytes # 0.4 K/mcL (0.0-1.3) 09/25/17 04:54 Eosinophils # 0.0 K/mcL (0.0-0.6) 09/25/17 04:54 Basophils # 0.0 K/mcL (0.0-0.2) 09/25/17 04:54 Nucleated RBCs/100 WBC 0.5 /100 WBC (0) H 09/20/17 16:40 PT 18.1 Seconds (9.4-12.1) H 09/24/17 04:33 INR 1.7 09/24/17 04:33 APTT 28.7 Seconds (26.0-36.0) 09/21/17 04:44 Sodium 139 mEq/L (136-145) 09/25/17 04:54 Potassium 3.2 mEq/L (3.5-4.5) L 09/25/17 04:54 Chloride 105 mEq/L (98-109) 09/25/17 04:54 Carbon Dioxide 27 mEq/L (19-29) 09/25/17 04:54 BUN 11 mg/dL (7-20) 09/25/17 04:54 Creatinine 0.40 mg/dL (0.57-1.11) L 09/25/17 04:54 Est GFR ( Amer) > 60 (> 60) 09/25/17 04:54 Est GFR (Non-Af Amer) > 60 (> 60) 09/25/17 04:54 BUN/Creatinine Ratio 28 (6-26) H 09/25/17 04:54 Glucose 66 mg/dL (70-99) L 09/25/17 04:54 Est Mean Plasma Glucose 88 mg/dl 09/21/17 04:44 Hemoglobin A1c 4.7 % (-5.6) 09/21/17 04:44 Calculated Osmolality 286 (280-300) 09/25/17 04:54 Calcium 7.8 mg/dL (8.6-10.8) L 09/25/17 04:54 Phosphorus 2.8 mg/dL (2.3-4.7) 09/25/17 04:54 Magnesium 1.4 mg/dL (1.6-2.6) L 09/25/17 04:54 Total Bilirubin 1.4 mg/dL (0.2-1.2) H 09/25/17 04:54 AST 19 Units/L (5-34) 09/25/17 04:54 ALT 13 Units/L (0-55) 09/25/17 04:54 Alkaline Phosphatase 212 Units/L (38-126) H 09/25/17 04:54 Troponin I 0.02 ng/mL (0-0.03) 09/21/17 04:44 B-Natriuretic Peptide 2548 pg/mL (0-100) H 09/20/17 23:07 Serum Total Protein 5.4 g/dL (6.0-8.3) L 09/25/17 04:54 Albumin 1.7 g/dL (3.5-5.0) L 09/25/17 04:54 Globulin 3.7 g/dL (2.4-3.5) H 09/25/17 04:54 Albumin/Globulin Ratio 0.5 (1.1-2.2) L 09/25/17 04:54 Prealbumin 4.0 mg/dL (16.0-38.0) L 09/21/17 04:44 Triglycerides 76 mg/dL (< 150) 09/21/17 04:44 Cholesterol 80 mg/dL (< 200) 09/21/17 04:44 LDL Cholesterol, Calc 44 mg/dL (0-99) 09/21/17 04:44 VLDL Cholesterol, Calc 15 mg/dL (< 31) 09/21/17 04:44 HDL Cholesterol 21 mg/dL (40-59) L 09/21/17 04:44 Cholesterol/HDL Ratio 3.8 (0-4.9) 09/21/17 04:44 Vitamin B12 > 2000 pg/mL (213-816) H 09/21/17 04:44 25-OH Vitamin D Total 29 ng/mL (30-80) L 09/21/17 04:44 TSH 0.000 mcIU/mL (0.350-4.840) L 09/20/17 16:40 Free T4 2.99 ng/dl (0.70-1.48) H 09/20/17 16:40 Urine Color Yellow (Yellow) 09/25/17 03:20 Urine Clarity Cloudy (Clear) A 09/25/17 03:20 Urine pH 8.0 pH Units (5.0-8.0) 09/25/17 03:20 Ur Specific [place] 1.013 (1.010-1.025) 09/25/17 03:20 Urine Protein Negative mg/dL (Neg-Trace) 09/25/17 03:20 Urine Glucose (UA) Normal mg/dL (Normal) 09/25/17 03:20 Urine Ketones Negative mg/dL (Negative) 09/25/17 03:20 Urine Blood Negative (Negative) 09/25/17 03:20 Urine Nitrite Negative (Negative) 09/25/17 03:20 Urine Bilirubin Negative (Negative) 09/25/17 03:20 Urine Urobilinogen Normal mg/dL (Normal) 09/25/17 03:20 Ur Leukocyte Esterase Negative (Negative) 09/25/17 03:20 Urine Microscopic RBC 0-3 per hpf (0-3) 09/25/17 03:20 Urine Microscopic WBC 0-3 per hpf (0-3) 09/25/17 03:20 Ur Squamous Epith Cells Many per lpf (None-Few) H 09/25/17 03:20 Urine Bacteria None Seen per hpf (None-Few) 09/25/17 03:20 Hyaline Casts None Seen per lpf (None-Few) 09/25/17 03:20 Stool Occult Blood Positive (Negative) A 09/20/17 13:20 Stl C. cayetanensis PCR Not detected (Not detect) 09/20/17 13:20 Stool Rotavirus A PCR Not detected (Not detect) 09/20/17 13:20 Stl Adenov F 40/41 PCR Not detected (Not detect) 09/20/17 13:20 Stool Astrovirus (PCR) Not detected (Not detect) 09/20/17 13:20 Stool Campylobacter PCR Not detected (Not detect) 09/20/17 13:20 Stl C. diff Tox A/B PCR Not detected (Not detect) 09/20/17 13:20 Stool Cryptosporidium PCR Not detected (Not detect) 09/20/17 13:20 Stl Sh Tox Pr E STEC PCR Not detected (Not detect) 09/20/17 13:20 Stool E coli O157 PCR Not detected (Not detect) 09/20/17 13:20 Stl Enterotoxigenic E PCR Not detected (Not detect) 09/20/17 13:20 Stool EPEC (PCR) Not detected (Not detect) 09/20/17 13:20 Stool EAEC (PCR) Not detected (Not detect) 09/20/17 13:20 Stl E. histolytica PCR Not detected (Not detect) 09/20/17 13:20 Stool Giardia Lamblia PCR Not detected (Not detect) 09/20/17 13:20 Stool Salmonella PCR Not detected (Not detect) 09/20/17 13:20 Stool Sapovirus (PCR) Not detected (Not detect) 09/20/17 13:20 Stl P. shigelloides PCR Not detected (Not detect) 09/20/17 13:20 Stl Shigella/EIEC PCR Not detected (Not detect) 09/20/17 13:20 St Y.enterocolitica PCR Not detected (Not detect) 09/20/17 13:20 Stool Vibrio (PCR) Not detected (Not detect) 09/20/17 13:20 Stl Vibrio cholerae PCR Not detected (Not detect) 09/20/17 13:20 Stl Norovirus GI/GII PCR Not detected (Not detect) 09/20/17 13:20 Stl GI Panel (PCR) Com See below 09/20/17 13:20 Impressions Abdomen/Pelvis CT 09/20/17 15:51 IMPRESSION: Cardiomegaly with large bilateral pleural effusions, trace abdominal ascites, and diffuse anasarca. No acute abdominopelvic process demonstrated D/ / Vahe Woodard MD / Vahe Woodard MD Interpreting Provider: Vahe Woodard MD Chest X-Ray 09/20/17 15:51 IMPRESSION: Bilateral pleural effusions. D/ / Howie Garcia MD / Howie Garcia MD Interpreting Provider: Howie Garcia MD Cervical Spine CT 09/20/17 16:55 IMPRESSION: No acute abnormality of the cervical spine. Moderate-sized bilateral pleural effusions, larger on the right. D/ / 09/20/2017 17:28:18 Haresh Paulson MD / anne-marie Interpreting Provider: Haresh Paulson MD Head CT 09/20/17 16:55 IMPRESSION: No acute intracranial abnormality. D/ / Augustine Hazel MD / Augustine Hazel MD Interpreting Provider: Augustine Hazel MD Brain MRI 09/21/17 22:20 IMPRESSION: Mild senescent changes. Otherwise unremarkable brain MRI with and without contrast. D/ / Johnson Hobbs MD / Johnson Hobbs MD Interpreting Provider: Johnson Hobbs MD Abdomen Ultrasound 09/24/17 17:00 IMPRESSION: Common bile duct is mildly prominent, likely related to prior cholecystectomy. Unremarkable sonographic appearance of the liver. Patient's known right-sided pleural effusion is again seen. D/ / Jovanna Orr MD / Jovanna Orr MD Interpreting Provider: Jovanna Orr MD - Imaging EKG: image reviewed Anesthesia Exam Vital Signs Temp Pulse Resp BP Pulse Ox 09/25/17 10:47 17 97 09/25/17 07:00 97.9 F 68 17 132/63 97 09/25/17 05:21 98.2 F 65 16 131/74 95 09/25/17 03:52 16 94 09/24/17 23:52 98 F 68 16 115/56 93 09/24/17 22:42 91 09/24/17 21:49 92 09/24/17 21:00 97.6 F 63 14 104/68 93 09/24/17 16:15 16 98 09/24/17 15:00 61 18 133/77 97 Intake and Output 09/24/17 09/25/17 09/25/17 23:59 07:59 15:59 Intake Total 220 / 220 0 / 0 Balance 220 / 220 0 / 0 Intake: Oral 220 / 220 0 / 0 Other: # Voids 1 3 1 # Urine Diapers 2 2 Weight 45.1 kg 42.9 kg Patient Weight 09/25/17 23:59 Weight 42.9 kg NPO (# of Hours): MNOC - HEENT Pupil (Motor): Pupils equal, EOMI Mallampati: II Teeth: Edentulous Denture Type: Upper: Complete, Lower: Complete Oral Opening: Greater than 3 - [employer] LOC: Oriented [employer] Motor: Normal RUE, Normal LUE, Normal RLE, Normal LLE, Normal Face [employer] Sensory: Normal: RUE, LUE, RLE, LLE, Face - Cardiac Rhythm: Regular Murmur: None - Pulmonary Breath Sounds: bilateral Clear, bilateral Rales Respiratory Effort: Symmetrical Anesthesia Assess/Plan ASA Score: 3 (COPD, Hyperthyroidism, CAD, Anxiety/depression, CHF, HTN, Chol) Modified [place] Scale for Level of Consciousness: Cooperative, oriented, and tranquil Anesthetic Plan: MAC Monitoring Plan: Standard Monitors Recovery Plan: Other Anes Supervising Prov Stmt: Pt seen/evaluated, R&B discussed, questions answered and consent obtained. Naheed Finnegan MD
[2017-09-25] MEDS ORDERED: SODIUM CHLORIDE/NAHCO3/KCL/PEG 4,000 ML SOLN.RECON PO ONE (13:52)
[2017-09-26] MEDS: Ipratropium/Albuterol Neb 3 ML IH SCH ×2 (04:27→09:53)
[2017-09-26 04:37] LABS: INR 1.3; Prothrombin Time 14.6 Seconds (9.4-12.1)
[2017-09-26 04:44] LABS: BUN/Creatinine Ratio 19 (6-26); Blood Urea Nitrogen 8 mg/dL (7-20); Calcium 8.2 mg/dL (8.6-10.8); Carbon Dioxide 27 mEq/L (19-29); Chloride 104 mEq/L (98-109); Glucose 60 mg/dL (70-99); Magnesium 1.9 mg/dL (1.6-2.6); Osmolality,Calculated 280 (280-300); Potassium 3.5 mEq/L (3.5-4.5); Sodium 137 mEq/L (136-145); eGFR For African Americans > 60 (> 60); eGFR For Non-African Americans > 60 (> 60)
[2017-09-26 04:46] LABS: Basophils % 0.2 %; Eosinophils % 0.7 %; Hematocrit 37.6 % (35.3-44.9); Immature Granulocytes % 0.3 % (0-4); Lymphocytes # 1.4 K/mcL (0.6-4.6); Lymphocytes % 22.1 %; Mean Corpuscular HGB Conc 30.3 g/dL (31.6-35.5); Mean Corpuscular Hemoglobin 25.1 pg (28.0-33.3); Mean Corpuscular Volume 82.8 fL (83.0-100.0); Mean Platelet Volume 12.4 fL (9.4-12.4); Monocytes # 0.4 K/mcL (0.0-1.3); Monocytes % 5.7 %; Neutrophils # 4.4 K/mcL (1.6-8.9); Platelet Count 174 K/mcL (140-400); Red Blood Count 4.54 M/mcL (3.82-4.97); Red Cell Distribution Width 18.4 % (11.5-14.5)
[2017-09-26 04:51] LABS: Hemoglobin 11.4 g/dL (11.5-15.4)
[2017-09-26] MEDS: *HR* Dextrose 50 % in Water (Syg) 50 ML SYRINGE IVP PRN ×2 (06:21→09:18)
[2017-09-26] MEDS ORDERED: D5% in Water 1,000 ML IVC PRN (08:22)
[2017-09-26] MEDS ORDERED: Dextrose Gel 15 GM PO PRN ×2 (08:22)
--- NOTE | 2017-09-26 08:28 | Internal Med Progress Note ---
<Jackson Babb - Last Filed: 09/26/17 14:36> Date of Encounter: 09/26/17 Time of Encounter: 08:26 - Assessment and plan (1) Iron deficiency anemia following bariatric surgery Current Visit: Yes Status: Acute Assessment and plan: Hgb 9.7 on admissin but dropped to 8.4 on 09/22/17. Stable today. Likely from iron deficiency anemia Continue to monitor and consider pRBC transfusion if Hgb < 7.0 Patient cannot recall when is her last EGD or colonoscopy done. GI following EGD revealed evidence of Daniel- Y bypass with gastroenteric anastomosis, no ulcers Colonoscopy revealed small rectal lcer due to enema trauma Continue BID PPI and resume Eliquis (2) Decubitus ulcer of coccygeal region, stage 2 Current Visit: Yes Status: Acute Assessment and plan: Pressure foam dressing in place Turn patient q2h (3) Acute encephalopathy Current Visit: Yes Status: Acute Assessment and plan: Resolving. Likely multifactorial due to anemia, hyperthyroidism, depression, and acute CHF Continue to monitor (4) MDD (major depressive disorder) Current Visit: Yes Status: Acute Assessment and plan: Pastient is not eating, reports in June Increased home dose of Effexor from 75 to 150mg daily Continue outpatient monitoring Qualifiers: Major depression recurrence: recurrent Active/Remission status: currently active Major depression episode severity: severe Psychotic features: without psychotic features Qualified Code(s): F33.2 - Major depressive disorder, recurrent severe without psychotic features (5) Severe protein-calorie malnutrition Current Visit: Yes Status: Acute Assessment and plan: Chronic cachexia with weight of 55.9 kg and BMI of 16.8 Severe loss of subcuticular fat, temporal wasting, she has lost 35 lbs in the past year and is on Megace for appetite stimulation. Continue Megace for appetite stimulation. PO supplementation: Ensure TID EGD revealed evidence of Daniel- Y bypass with gastroenteric anastomosis Nutrition consulted (6) Hyperthyroidism Current Visit: Yes Status: Chronic Assessment and plan: Known history of chronic hyperthyroidism. Per patient, she was not able to make it to her endocrinology appointments for management of her hyperthyroidism and was previously scheduled for an outpatient thyroid uptake scan. TSH is 0.000 and free T4 2.99 on admission. Continue prophylthioracil. Continue cholestyramine to reduce enterohepatic recycling of thyroid hormones, consider hydrocortisone if not improving with prednisone Avoid non-selective beta blockers such as Propanolol which can cross blood brain barrier and potentially aggravate patient's depression Patient will need outpatient follow-up with terra cotta roofer Dr. Noel (7) Weakness generalized Current Visit: Yes Status: Acute Assessment and plan: History of multiples episodes of syncope and falls CT of the head/brain w/o contrast shows no acute intracranial abnormality. MRI of head/brain reveals mild senescent changes, otherwise unremarkable brain MRI with and without contrast. Bilateral carotid Doppler duplex imaging reveals nonstenotic plaque bilaterally Falls/safety precautions. GI panel negative for C. diff RUQ u/s reveals Common bile duct is mildly prominent, likely related to prior cholecystectomy. Unremarkable sonographic appearance of the liver. PT/OT consulted Social service on board for discharge planning. Family refuses SNF placement upon discharge and requests [facility] arrangement. (8) Diastolic CHF, acute on chronic Current Visit: Yes Status: Acute Assessment and plan: Acute exacerbation of CHF, BNP 2548, pedal edema CXR reveals bilateral pleural effusions. Echocardiogram in June 2017 revealed LVEF of 60%. CT of the abdomen and pelvis reveals cardiomegaly with large bilateral pleural effusions, trace abdominal ascites, and diffuse anasarca. No acute abdominopelvic process demonstrated. Continue cardiac telemetry. Serail troponins: 0.03 --> 0.03 --> 0.02 Continue Lasix 40 mg daily prn Continue Metoprolol, and lisinopril. Hold hydrochlorothiazide Monitor f/u labs and patient for signs of fluid overload. (9) Atrial fibrillation with RVR Current Visit: Yes Status: Acute Assessment and plan: Rate controlled off Cardizem drip Continue home Metoprolol XL Resume Eliquis (10) CAD (coronary artery disease) Current Visit: No Status: Chronic Assessment and plan: History of chronic CAD. Continue metoprolol, lisinopril, Lipitor, and aspirin. Qualifiers: Coronary Disease-Associated Artery/Lesion type: [place] artery [place] vs. transplanted heart: [place] heart Associated angina: without angina Qualified Code(s): I25.10 - Atherosclerotic heart disease of [place] coronary artery without angina pectoris (11) HTN (hypertension) Current Visit: Yes Status: Chronic Assessment and plan: Hx of chronic HTN. Monitor patient and VS. Continue metoprolol, and lisinopril. Qualifiers: Hypertension type: essential hypertension Qualified Code(s): I10 - Essential (primary) hypertension (12) COPD (chronic obstructive pulmonary disease) Current Visit: No Status: Chronic Assessment and plan: Not in acute exacerbation. Stop Prednisone Continue Duonebs Qualifiers: COPD type: unspecified COPD Qualified Code(s): J44.9 - Chronic obstructive pulmonary disease, unspecified (13) Type 2 diabetes mellitus Current Visit: No Status: Chronic Assessment and plan: HGB a1c 4.7 Hypogycemic event due to NPO status prior to colonoscopy Continue ACCUCHECK monitoring Qualifiers: Diabetes mellitus complication status: without complication Diabetes mellitus correction insulin use: without correction use Qualified Code(s): E11.9 - Type 2 diabetes mellitus without complications (14) Bladder cancer Current Visit: Yes Status: Acute Assessment and plan: Patient reports no current treatment at this time Denies hematuria 35lbs weight loss in the past 1 year Started on Megace for appetite stimulation Qualifiers: Bladder location: unspecified site Qualified Code(s): C67.9 - Malignant neoplasm of bladder, unspecified (15) Hypokalemia Current Visit: Yes Status: Acute Assessment and plan: Replace Potassium prn Continue to monitor (16) Hypomagnesemia Current Visit: Yes Status: Resolved Assessment and plan: Mag 1.5 --> 1.9 Continue to monitor (17) DVT prophylaxis Current Visit: Yes Status: Acute Assessment and plan: Resume Eliquis - Subjective Interval history: Patient seen and examined. She reports blood in stool and chronic back pain. She is A&O x3 today awaiting EGD/ colonoscopy today. Patient had hypoglycemic episode overnight with blood glucose 60 due to NPO status. Patient has developed a stage 2 sacral pressure ulcer. She denies any other c/o at this time. - Constitutional Vitals: Temp Pulse Resp BP Pulse Ox 97.7 F 67 16 124/64 95 09/26/17 07:58 09/26/17 07:58 09/26/17 07:58 09/26/17 07:58 09/26/17 07:58 General appearance: Present: cachectic, cooperative, A&O X 3, no acute distress , answers questions appropriately - Head Head exam: Present: atraumatic, normal inspection, normocephalic - Eye Eye exam: Present: EOMI, sclera anicteric - ENT ENT exam: Present: mucous membranes moist, normal oropharynx - Neck Neck exam general surgery: Present: supple. Absent: tenderness Additional comments: JVD - Respiratory Respiratory exam: Present: CTAB. Absent: rhonchi, tachypnea - Cardiovascular Cardiovascular exam: Present: irregular rhythm, +S1, +S2 - GI/Abdominal GI/Abdominal exam: Present: normal bowel sounds, soft. Absent: bruit, distended , guarding - Additional comments: no verduzco - Extremities Exam Extremities exam: Present: normal inspection, warm. Absent: pedal edema - Back Exam Back exam: Present: normal inspection. Absent: paraspinal tenderness, tenderness - Neurological Exam Neurological exam: Present: alert, oriented X3, no focal deficits. Absent: speech deficit - Psychiatric Psychiatric exam: Present: depressed, flat affect - Skin Skin exam: Present: abrasion (stage 2 sacral/coccyx decubitus ulcer) Internal Medicine: Result - Labs CBC & Chem 7: 09/26/17 04:14 09/26/17 04:14 Labs: Short CBC 09/26/17 Range/Units 04:14 WBC 6.2 (4.3-11.1) K/mcL Hgb 11.4 L D (11.5-15.4) g/dL Hct 37.6 (35.3-44.9) % Plt Count 174 (140-400) K/mcL Neutrophils # 4.4 (1.6-8.9) K/mcL BMP 09/25/17 09/26/17 04:54 04:14 Sodium 139 137 Potassium 3.2 L 3.5 Chloride 105 104 Carbon Dioxide 27 27 BUN 11 8 Creatinine 0.40 L 0.43 L Glucose 66 L 60 L Calcium 7.8 L 8.2 L Liver Function 09/25/17 Range/Units 04:54 Total Bilirubin 1.4 H (0.2-1.2) mg/dL AST 19 (5-34) Units/L ALT 13 (0-55) Units/L Alkaline Phosphatase 212 H (38-126) Units/L Albumin 1.7 L (3.5-5.0) g/dL - ABG Interpretation ABG results: PT/INR, D-dimer PT 14.6 Seconds (9.4-12.1) H 09/26/17 04:14 - Pulse Oximetry Interpretation Digit-Finger Pulse Oximetry Readin (on RA) - VTE Documentation of Mechanical Device: Graduated compression elastic hosiery Consult Discharge Plan - Plan Referrals: Alpa Lee, HEMATOLOGY SUPERVISOR [Primary Care Provider] - <Eulalio Perez - Last Filed: 09/26/17 15:01> Date of Encounter: 09/26/17 - Constitutional Vitals: Temp Pulse Resp BP Pulse Ox 98.2 F 65 18 139/64 99 09/26/17 12:00 09/26/17 12:00 09/26/17 12:00 09/26/17 12:00 09/26/17 12:00 Internal Medicine: Result - Labs CBC & Chem 7: 09/26/17 04:14 09/26/17 04:14 Labs: Short CBC 09/26/17 Range/Units 04:14 WBC 6.2 (4.3-11.1) K/mcL Hgb 11.4 L D (11.5-15.4) g/dL Hct 37.6 (35.3-44.9) % Plt Count 174 (140-400) K/mcL Neutrophils # 4.4 (1.6-8.9) K/mcL BMP 09/26/17 04:14 Sodium 137 Potassium 3.5 Chloride 104 Carbon Dioxide 27 BUN 8 Creatinine 0.43 L Glucose 60 L Calcium 8.2 L - ABG Interpretation ABG results: PT/INR, D-dimer PT 14.6 Seconds (9.4-12.1) H 09/26/17 04:14 - Attending Attestation I have seen and examined the patient independently. I have discussed with resident physician Dr Babb regarding the management plan. Agree with the documentation. The patient denies shortness of breath OR chest pain. Vitals are stable. Had EGD and a colonoscopy today, no active bleeding identified. Hemoglobin is stable for several days. Will resume anticoagulation. PT recommended rehabilitation discharge, however, patient and the family refused rehabilitation and want to go home. Will consider home discharge with home health tomorrow if patient remains stable.
[2017-09-26] MEDS: Cholestyramine 4 GM POWD.PACK PO SCH ×4 (10:13→21:10)
[2017-09-26] MEDS ORDERED: Ipratropium/Albuterol Neb 3 ML IH PRN (10:57)
[2017-09-26] MEDS ORDERED: *HR* Propofol 200 MG/20 ML VIAL IVP ONE (12:33)
[2017-09-26] MEDS ORDERED: Furosemide 40 MG TABLET PO PRN (14:37)
[2017-09-26] MEDS: Aspirin Enteric Coated 325 MG Tablet PO SCH (14:44)
[2017-09-26] MEDS: Lisinopril 20 MG TABLET PO SCH (14:44)
[2017-09-26] MEDS: Folic Acid 1 MG TABLET PO SCH (14:44)
[2017-09-26] MEDS: Pregabalin 75 MG CAPSULE PO SCH ×2 (14:45→21:07)
[2017-09-26] MEDS: Metoprolol XL (24 HR) Succ 50 MG TAB.ER.24H PO SCH ×2 (14:45→21:18)
[2017-09-26] MEDS: Venlafaxine XR (24 HR) 150 MG CAP.ER.24H PO SCH (14:46)
[2017-09-26] MEDS: ALPRAZolam 1 MG TABLET PO PRN (14:46)
[2017-09-26] MEDS: *HR* OxyCODONE ER (12 HR) 10 MG TABLET PO SCH ×2 (14:48→21:18)
[2017-09-26] MEDS: Aspirin Enteric Coated 81 MG Tablet PO SCH (18:24)
[2017-09-26] MEDS ORDERED: APIXABAN 5 MG TABLET PO SCH (21:00)
[2017-09-26] MEDS: APIXABAN 5 MG TABLET PO SCH (21:08)
[2017-09-26] MEDS ORDERED: 0.9 % Sodium Chloride 500 ML IVC ONE (22:44)
[2017-09-27 05:40] LABS: Basophils % 0.2 %; Eosinophils # 0.2 K/mcL (0.0-0.6); Eosinophils % 1.6 %; Hemoglobin 11.2 g/dL (11.5-15.4); Immature Granulocytes % 0.4 % (0-4); Lymphocytes # 1.5 K/mcL (0.6-4.6); Lymphocytes % 15.7 %; Mean Corpuscular HGB Conc 31.1 g/dL (31.6-35.5); Mean Corpuscular Hemoglobin 25.8 pg (28.0-33.3); Mean Corpuscular Volume 82.9 fL (83.0-100.0); Mean Platelet Volume 12.5 fL (9.4-12.4); Monocytes # 0.7 K/mcL (0.0-1.3); Monocytes % 6.9 %; Neutrophils # 7.4 K/mcL (1.6-8.9); Platelet Count 170 K/mcL (140-400); Red Blood Count 4.34 M/mcL (3.82-4.97); Red Cell Distribution Width 17.7 % (11.5-14.5); Segmented Neutrophils % 75.2 %
[2017-09-27 06:04] LABS: BUN/Creatinine Ratio 28 (6-26); Blood Urea Nitrogen 12 mg/dL (7-20); Carbon Dioxide 21 mEq/L (19-29); Chloride 110 mEq/L (98-109); Glucose 67 mg/dL (70-99); Osmolality,Calculated 288 (280-300); Sodium 140 mEq/L (136-145); eGFR For African Americans > 60 (> 60); eGFR For Non-African Americans > 60 (> 60)
[2017-09-27 06:10] LABS: Potassium 4.2 mEq/L (3.5-4.5)
--- NOTE | 2017-09-27 07:28 | Discharge Summary ---
<Jackson Babb - Last Filed: 09/27/17 14:10> Date of Encounter: 09/27/17 Time of Encounter: 07:28 - Discharge Diagnosis (1) Severe protein-calorie malnutrition Priority: Primary Status: Acute Comments: Chronic cachexia with weight of 55.9 kg and BMI of 16.8 Severe loss of subcuticular fat, temporal wasting, she has lost 35 lbs in the past year and is on Megace for appetite stimulation. Continue Megace for appetite stimulation. PO supplementation: Ensure TID EGD revealed evidence of Daniel- Y bypass with gastroenteric anastomosis Nutrition consulted (2) Hyperthyroidism Priority: Primary Status: Chronic Comments: Known history of chronic hyperthyroidism. Per patient, she was not able to make it to her endocrinology appointments for management of her hyperthyroidism and was previously scheduled for an outpatient thyroid uptake scan. TSH is 0.000 and free T4 2.99 on admission. Continue prophylthioracil. Continue cholestyramine to reduce enterohepatic recycling of thyroid hormones, consider hydrocortisone if not improving with prednisone Avoid non-selective beta blockers such as Propanolol which can cross blood brain barrier and potentially aggravate patient's depression Patient will need outpatient follow-up with lead pharmacy technician Dr. Noel (3) MDD (major depressive disorder) Priority: Primary Status: Acute Comments: Pastient is not eating, reports in June Increased home dose of Effexor from 75 to 150mg daily Continue outpatient monitoring Qualifiers: Major depression recurrence: recurrent Active/Remission status: currently active Major depression episode severity: severe Psychotic features: without psychotic features Qualified Code(s): F33.2 - Major depressive disorder, recurrent severe without psychotic features (4) Decubitus ulcer of coccygeal region, stage 2 Priority: Primary Status: Acute Comments: Pressure foam dressing in place Turn patient q2h (5) Iron deficiency anemia following bariatric surgery Priority: Primary Status: Acute Comments: Hgb 9.7 on admissin but dropped to 8.4 on 09/22/17. Stable today. Likely from iron deficiency anemia Continue to monitor and consider pRBC transfusion if Hgb < 7.0 Patient cannot recall when is her last EGD or colonoscopy done. GI following EGD revealed evidence of Daniel- Y bypass with gastroenteric anastomosis, no ulcers Colonoscopy revealed small rectal lcer due to enema trauma Continue BID PPI and resume Eliquis (6) Acute encephalopathy Priority: Primary Status: Resolved Comments: Resolving. Likely multifactorial due to anemia, hyperthyroidism, depression, and acute CHF Continue to monitor (7) Weakness generalized Priority: Primary Status: Acute Comments: History of multiples episodes of syncope and falls CT of the head/brain w/o contrast shows no acute intracranial abnormality. MRI of head/brain reveals mild senescent changes, otherwise unremarkable brain MRI with and without contrast. Bilateral carotid Doppler duplex imaging reveals nonstenotic plaque bilaterally Falls/safety precautions. GI panel negative for C. diff RUQ u/s reveals Common bile duct is mildly prominent, likely related to prior cholecystectomy. Unremarkable sonographic appearance of the liver. PT/OT consulted Social service on board for discharge planning. Family refuses SNF placement upon discharge and requested [facility] arrangement. (8) Diastolic CHF, acute on chronic Priority: Primary Status: Acute Comments: Acute exacerbation of CHF, BNP 2548, pedal edema CXR reveals bilateral pleural effusions. Echocardiogram in June 2017 revealed LVEF of 60%. CT of the abdomen and pelvis reveals cardiomegaly with large bilateral pleural effusions, trace abdominal ascites, and diffuse anasarca. No acute abdominopelvic process demonstrated. Continue cardiac telemetry. Serail troponins: 0.03 --> 0.03 --> 0.02 Continue Lasix 40 mg daily prn Continue Metoprolol, and lisinopril. Hold hydrochlorothiazide Monitor f/u labs and patient for signs of fluid overload. (9) Atrial fibrillation with RVR Priority: Primary Status: Acute Comments: Rate controlled off Cardizem drip Continue home Metoprolol XL Resume Eliquis (10) CAD (coronary artery disease) Priority: Secondary Status: Chronic Comments: History of chronic CAD. Continue metoprolol, lisinopril, Lipitor, and aspirin. Qualifiers: Coronary Disease-Associated Artery/Lesion type: [place] artery [place] vs. transplanted heart: [place] heart Associated angina: without angina Qualified Code(s): I25.10 - Atherosclerotic heart disease of [place] coronary artery without angina pectoris (11) HTN (hypertension) Priority: Secondary Status: Chronic Comments: Hx of chronic HTN. Monitor patient and VS. Continue metoprolol, and lisinopril. Qualifiers: Hypertension type: essential hypertension Qualified Code(s): I10 - Essential (primary) hypertension (12) COPD (chronic obstructive pulmonary disease) Priority: Secondary Status: Chronic Comments: Not in acute exacerbation. Stop Prednisone Continue Duonebs Qualifiers: COPD type: unspecified COPD Qualified Code(s): J44.9 - Chronic obstructive pulmonary disease, unspecified (13) Type 2 diabetes mellitus Priority: Secondary Status: Resolved Comments: HGB a1c 4.7 Hypogycemic event due to NPO status prior to colonoscopy Continue ACCUCHECK monitoring Qualifiers: Diabetes mellitus complication status: without complication Diabetes mellitus care home insulin use: without care home use Qualified Code(s): E11.9 - Type 2 diabetes mellitus without complications (14) Bladder cancer Priority: Secondary Status: Acute Comments: Patient reports no current treatment at this time Denies hematuria 35lbs weight loss in the past 1 year Started on Megace for appetite stimulation Qualifiers: Bladder location: unspecified site Qualified Code(s): C67.9 - Malignant neoplasm of bladder, unspecified (15) Hypokalemia Priority: Secondary Status: Acute Comments: Replace Potassium prn Continue to monitor (16) Hypomagnesemia Priority: Secondary Status: Resolved Comments: Mag 1.5 --> 1.9 Continue to monitor (17) DVT prophylaxis Priority: Primary Status: Acute Comments: Resume Eliquis - Discharge Medications Prescriptions: Apixaban [Eliquis] 5 mg PO BID #60 tablet Cholestyramine 4 gm PO QIDAC #120 packet Megestrol Acetate [Megace] 400 mg PO BID 30 Days #2400 mls Omeprazole [PriLOSEC] 40 mg PO BIDAC #60 capsule. Propylthiouracil 50 mg PO TID #90 tablet Venlafaxine XR (24 HR) [Effexor Xr] 150 mg PO DAILY #30 cap.er.24h Home Medications: Folic Acid 2 mg PO DAILY 01/11/16 [History] Multivitamin/Iron/Folic Acid [Centrum Complete Multivit Tab] 1 tab PO DAILY [History] Nitroglycerin [Nitrostat] 0.4 mg SL Q5M PRN 01/11/16 [History] Simvastatin [Zocor] 20 mg PO HS 01/11/16 [History] Vitamin E 1,000 units PO DAILY 01/11/16 [History] ALPRAZolam [Xanax 1 MG Tablet] 1 mg PO TID PRN 10/18/16 [History] Lisinopril [Zestril] 40 mg PO DAILY #0 10/21/16 [Rx] Oxygen 3 l .ROUTE AD 04/06/17 [History] Potassium Chloride [Klor-Con Sprinkle] 20 meq PO DAILY 07/15/17 [History] Pregabalin [Lyrica] 75 mg PO BID 07/15/17 [History] Metoprolol XL (24 HR) Succ [Toprol Xl] 75 mg PO BID #60 tab.er.24h 08/16/17 [Rx] Furosemide [Lasix] 40 mg PO DAILY PRN 09/20/17 [History] hydroCHLOROthiazide [Hydrochlorothiazide] 25 mg PO DAILY 09/20/17 [History] Acetaminophen [Tylenol] 650 mg PO Q6HR PRN tablet 09/27/17 [Rx] Apixaban [Eliquis] 5 mg PO BID #60 tablet 09/27/17 [Rx] Aspirin Enteric Coated [Aspirin EC] 81 mg PO DAILY tablet. 09/27/17 [Rx] Atorvastatin [Lipitor] 20 mg PO HS tablet 09/27/17 [Rx] Cholestyramine 4 gm PO QIDAC #120 packet 09/27/17 [Rx] Megestrol Acetate [Megace] 400 mg PO BID 30 Days #2400 mls 09/27/17 [Rx] Omeprazole [PriLOSEC] 40 mg PO BIDAC #60 capsule. 09/27/17 [Rx] OxyCODONE ER (12 HR) [OxyCONTIN] 10 mg PO Q12H PRN #14 09/27/17 [Rx] Propylthiouracil 50 mg PO TID #90 tablet 09/27/17 [Rx] Venlafaxine XR (24 HR) [Effexor Xr] 150 mg PO DAILY #30 cap.er.24h 09/27/17 [Rx] Allergies/Adverse Reactions: 3 Allergy/AdvReac Type Severity Reaction Status Date / Time morphine Allergy Unknown Unknown Verified 09/21/17 02:00 hydrocodone [From Vicodin] Allergy Swelling Verified 09/20/17 15:38 of Lip/Tongue/Throat Procedures/tests Complete & Pending: Procedures Performed prior 72 hours Category Date Time Status abdominal ultrasound - limited [US abdomen limited] [US Exams 09/24/17 17:00 Completed ] Stat Date of admission: 09/20/17 22:29 Primary care physician: Alpa Lee CNP Consults: 09/24/17 08:50 Consult to Gastroenterology [CONS] Routine Consulting Provider: Gastroentersalbador Benson Reason for Consult: Occult positive stool, anemia Time Notified: 08:51 Call Completed: Yes Discharging clinician: Jackson Babb Anticipated date of discharge: 09/27/17 - Patient Status Disposition: Home Health Service Condition: Fair Functional capacity at discharge: uses cane/walker Overall status at discharge: patient is not back to baseline - Ambulatory Orders Ambulatory Orders: Dietary Supplement Time Frame: 09/27/17, Location: N/A - Discharge Instructions Follow Up With: Alpa Lee CNP [Primary Care Provider] - 10/04/17 8:20 am Forms: ED Satisfaction Letter Additional Instructions: VERY IMPORTANT: Follow up with Distilling Department Supervisor as soon as possible. Turn patient every two hours to prevent worsening of pressure ulcer on sacrum Take Ensure HP three times per day and Megace twice a day Cut Oxycodone dose down to 10mg twice a day Increased Effexor dose to 150mg daily Follow up with PCP in 1 week - Diet and Activity Activity: as per physical therapy, increase activity as tolerated (Turn patient q2h) Diet: other (Pureed diet, Ensure HP TID) Hospital course: Ms. Mcdaniels is a 62 year old female with medical history of uncontrolled hyperthyroidism, severe depression, atrial fibrillation, COPD, HLD, HTN, osteoporosis, and previous diagnosis of bladder cancer presents complaining of chest pain, SOB, lower abdominal pain, fatigue, falls, weakness in her bilateral LEs, and heart palpitations for 3 days. Pt also reports hx of falls and becomes orthopneic when laying flat and feels like she is being smothered. Patient also reported bright blood in stool as well as chronic diarrhea. patient found to have acute exacerbation of CHF, BNP 2548, pedal edema, and CXR revealed bilateral pleural effusions. Labs revealed TSH level 0.00 and free T4 2.99 on admission. Per patient, she was not able to make it to her endocrinology appointments with Dr. Noel for management of her hyperthyroidism and was previously scheduled for an outpatient thyroid uptake scan. She was continued on prophylthioracil and started cholestyramine to reduce enterohepatic recycling of thyroid hormones. Patient noted to have severe cachexia with weight of 40.7kg and BMI of 15.9, severe loss of subcuticular fat, temporal wasting, and has lost 35 lbs in the past year. She was started on Megace for appetite stimulation, Ensure TID, and Effexor dose was increased for severe depression following her husbands in June. Her Hgb was 9.7 on admission but dropped to 8.4. EGD revealed evidence of Daniel-Y bypass with gastroenteric anastomosis with no ulcers and colonoscopy revealed small rectal ulcer due to enema trauma. Patient developed stage 2 decubitus ulcer of coccygeal region and pressure foam dressing was applied. Patient and daughter refused SNF placement and choose to get [facility]. Daughter, Adelita, agreed to get her to her lead pharmacy technician for much needed hyperthyroidism treatment upon discharge. - Time Spent with Patient Total time spent providing and/or coordinating discharge services: 30 minutes Greater than 30 minutes (Discussed plan with daughter Adelita, urgent need for hyperthyroidism and depression tx) - Constitutional Vitals: Temp Pulse Resp BP Pulse Ox 97.9 F 69 18 149/69 97 09/27/17 04:10 09/27/17 04:10 09/27/17 04:10 09/27/17 04:10 09/27/17 04:10 General appearance: Present: cachectic, cooperative, A&O X 3, no acute distress , answers questions appropriately Exam: - Head Head exam: Present: atraumatic, normal inspection, normocephalic - Eye Eye exam: Present: EOMI, sclera anicteric - ENT ENT exam: Present: mucous membranes moist, normal oropharynx - Neck Neck exam general surgery: Present: supple. Absent: tenderness Additional comments: JVD - Respiratory Respiratory exam: Present: CTAB. Absent: rhonchi, tachypnea - Cardiovascular Cardiovascular exam: Present: irregular rhythm, +S1, +S2 - GI/Abdominal GI/Abdominal exam: Present: normal bowel sounds, soft. Absent: bruit, distended , guarding - Additional comments: Verduzco with clear yellow urine - Extremities Exam Extremities exam: Present: normal inspection, warm. Absent: pedal edema - Back Exam Back exam: Present: normal inspection. Absent: paraspinal tenderness, tenderness - Neurological Exam Neurological exam: Present: alert, oriented X3, no focal deficits. Absent: speech deficit - Psychiatric Psychiatric exam: Present: depressed, flat affect - Skin Skin exam: Present: abrasion (stage 2 sacral/coccyx decubitus ulcer) - Head Head exam: Present: atraumatic, normal inspection, normocephalic - Eye Eye exam: Present: EOMI, conjuntiva pink, sclera anicteric Additional comments: temporal wasting - ENT ENT exam: Present: mucous membranes moist, normal oropharynx - Neck Neck exam general surgery: Present: normal inspection, supple. Absent: tenderness, thyromegaly - Respiratory Respiratory exam: Present: CTAB. Absent: accessory muscle use, respiratory distress, tachypnea - Cardiovascular Cardiovascular exam: Present: irregular rhythm, +S1, +S2. Absent: tachycardia - GI/Abdominal GI/Abdominal exam: Present: normal bowel sounds, soft. Absent: distended, tenderness - Additional comments: verduzco - Extremities Exam Extremities exam: Present: warm, radial pulses palpable and symmetrical. Absent : pedal edema Additional comments: severe loss of subcuticular fat, muscle wasting - Back Exam Back exam: Present: paraspinal tenderness (T spine), tenderness, vertebral tenderness - Neurological Exam Neurological exam: Present: alert, oriented X3, no focal deficits. Absent: facial droop, speech deficit - Psychiatric Psychiatric exam: Present: depressed, flat affect - Skin Skin exam: Present: dry. Absent: intact (stage 2 coccyx decubitus ulcer with bborder foam dressing in place) - VTE Documentation of Mechanical Device: Graduated compression elastic hosiery <Eulalio Perez - Last Filed: 09/27/17 16:07> Date of Encounter: 09/27/17 Procedures/tests Complete & Pending: Procedures Performed prior 72 hours Category Date Time Status abdominal ultrasound - limited [US abdomen limited] [US Exams 09/24/17 17:00 Completed ] Stat Date of admission: 09/20/17 22:29 Primary care physician: Alpa Lee CNP Consults: 09/24/17 08:50 Consult to Gastroenterology [CONS] Routine Consulting Provider: Gastroenterology Kelley Reason for Consult: Occult positive stool, anemia Time Notified: 08:51 Call Completed: Yes Hospital course: Ms. Mcdaniels is a 62 year old female - Time Spent with Patient Total time spent providing and/or coordinating discharge services: - Constitutional Vitals: Temp Pulse Resp BP Pulse Ox 97.9 F 64 14 141/57 93 09/27/17 07:45 09/27/17 07:45 09/27/17 07:45 09/27/17 07:45 09/27/17 13:30 - Attending Attestation I have seen and examined the patient independently. I have discussed with resident physician Dr Babb regarding the management plan. Agree with the documentation. Patient admitted for A. fib RVR and CHF exacerbation. Her heart rate is well controlled now on beta delfino. Patient has hyperthyroidism, not well controlled, on PTU at this point. I have a lengthy conversation with patient's daughter Ms. Adelita Mcdaniels and pt herself. Patient's hyperthyroidism may account for A. fib RVR and body weight loss and general weakness, patient needs to follow up with endocrinology as soon as possible after discharge. Patient and her daughter verbalized understanding and agreement, and the promise to see lead pharmacy technician as early as possible after discharge. We will decrease oxycodone dose to 10 mg twice a day as needed for pain as patient has a low body weight now.
[2017-09-27 08:00] VITALS: BP 141/57
--- NOTE | 2017-09-27 08:37 | Physician Discharge Referral ---
ExtendedCare Referral Info Transfer To: ECF/SNF Provider in Charge: Eulalio Perez Provider in Charge after Transfer: PCP Institutional Level of Care: Skilled - Diagnosis (1) Severe protein-calorie malnutrition Priority: Primary Status: Acute (2) Weakness generalized Priority: Primary Status: Acute (3) Hyperthyroidism Priority: Primary Status: Chronic (4) MDD (major depressive disorder) Priority: Primary Status: Acute (5) Iron deficiency anemia following bariatric surgery Priority: Secondary Status: Acute (6) Decubitus ulcer of coccygeal region, stage 2 Priority: Primary Status: Acute (7) Acute encephalopathy Priority: Primary Status: Resolved (8) Diastolic CHF, acute on chronic Priority: Primary Status: Acute (9) Atrial fibrillation with RVR Priority: Primary Status: Acute (10) CAD (coronary artery disease) Priority: Secondary Status: Chronic (11) HTN (hypertension) Priority: Secondary Status: Chronic (12) COPD (chronic obstructive pulmonary disease) Priority: Secondary Status: Chronic (13) Type 2 diabetes mellitus Priority: Secondary Status: Chronic (14) Bladder cancer Priority: Secondary Status: Acute (15) Hypokalemia Priority: Secondary Status: Acute (16) Hypomagnesemia Priority: Secondary Status: Resolved (17) DVT prophylaxis Priority: Primary Status: Acute Prognosis: Fair Aware of Diagnosis: Patient Aware of Prognosis: Patient - Transfer Medications Prescriptions: Apixaban [Eliquis] 5 mg PO BID #60 tablet Cholestyramine 4 gm PO QIDAC #120 packet Megestrol Acetate [Megace] 20 mg PO BID #30 tablet Omeprazole [PriLOSEC] 40 mg PO BIDAC #60 capsule. Propylthiouracil 50 mg PO TID #90 tablet Venlafaxine XR (24 HR) [Effexor Xr] 150 mg PO DAILY #30 cap.er.24h Home Medications: Folic Acid 2 mg PO DAILY 01/11/16 [History] Multivitamin/Iron/Folic Acid [Centrum Complete Multivit Tab] 1 tab PO DAILY [History] Nitroglycerin [Nitrostat] 0.4 mg SL Q5M PRN 01/11/16 [History] Simvastatin [Zocor] 20 mg PO HS 01/11/16 [History] Vitamin E 1,000 units PO DAILY 01/11/16 [History] ALPRAZolam [Xanax 1 MG Tablet] 1 mg PO TID 10/18/16 [History] Oxycodone HCl/Acetaminophen [Percocet 10-325 mg Tablet] 1 tab PO Q6H PRN [History] Lisinopril [Zestril] 40 mg PO DAILY #0 10/21/16 [Rx] Oxygen 3 l .ROUTE AD 04/06/17 [History] Potassium Chloride [Klor-Con Sprinkle] 20 meq PO DAILY 07/15/17 [History] Pregabalin [Lyrica] 75 mg PO BID 07/15/17 [History] Metoprolol XL (24 HR) Succ [Toprol Xl] 75 mg PO BID #60 tab.er.24h 08/16/17 [Rx] Furosemide [Lasix] 40 mg PO DAILY PRN 09/20/17 [History] OxyCODONE ER (12 HR) [OxyCONTIN] 30 mg PO Q12H 09/20/17 [History] hydroCHLOROthiazide [Hydrochlorothiazide] 25 mg PO DAILY 09/20/17 [History] Acetaminophen [Tylenol] 650 mg PO Q6HR PRN tablet 09/27/17 [Rx] Apixaban [Eliquis] 5 mg PO BID #60 tablet 09/27/17 [Rx] Aspirin Enteric Coated [Aspirin EC] 81 mg PO DAILY tablet. 09/27/17 [Rx] Atorvastatin [Lipitor] 20 mg PO HS tablet 09/27/17 [Rx] Cholestyramine 4 gm PO QIDAC #120 packet 09/27/17 [Rx] Megestrol Acetate [Megace] 20 mg PO BID #30 tablet 09/27/17 [Rx] Omeprazole [PriLOSEC] 40 mg PO BIDAC #60 capsule. 09/27/17 [Rx] Propylthiouracil 50 mg PO TID #90 tablet 09/27/17 [Rx] Venlafaxine XR (24 HR) [Effexor Xr] 150 mg PO DAILY #30 cap.er.24h 09/27/17 [Rx] Allergies/Adverse Reactions: 3 Allergy/AdvReac Type Severity Reaction Status Date / Time morphine Allergy Unknown Unknown Verified 09/21/17 02:00 hydrocodone [From Vicodin] Allergy Swelling Verified 09/20/17 15:38 of Lip/Tongue/Throat - Respiratory Orders Smoking Cessation: Smoking cessation has been advised. For more information, call the [place] Tobacco Quit Line at 6-423-GSBB-NOW. - Ancillary Orders May use pressure relief devices daily prn - Advance Directives Code Status: Full Code - Mobility Orders Ambulate - Rehabiliation Orders Rehab Potential: Good Rehab Orders: Evaluation for Physical Therapy, Evaluation for Occupational Therapy - Treatments Skin tear care topically daily PRN per policy, May check for fecal impaction rectally daily PRN, Fleet enema rectally every other day PRN cleansing purposes - Diet Orders Pureed House Supplement per Dietary: Ensure HP TID CERTIFICATION: I certify that the transfer of the above named patient to an Extended Care Facility is necessary for the continuing treatment of the diagnosis listed. The above information is true and accurate reflection of patient's current condition. Confidential - Redisclosure prohibited without a patient's written consent.
[2017-09-27] MEDS ORDERED: *HR* OxyCODONE ER (12 HR) 10 MG TABLET PO SCH (09:22)
--- NOTE | 2017-09-27 09:26 | Physician Discharge Referral ---
Home Health/Hosp Referral Info Transfer to: Home Health Attending Provider: Eulalio Perez Provider in Charge Post Discharge: PCP - Diagnosis (1) Severe protein-calorie malnutrition Priority: Primary Status: Acute (2) Weakness generalized Priority: Primary Status: Acute (3) Hyperthyroidism Priority: Primary Status: Chronic (4) MDD (major depressive disorder) Priority: Primary Status: Acute (5) Decubitus ulcer of coccygeal region, stage 2 Priority: Primary Status: Acute (6) Iron deficiency anemia following bariatric surgery Priority: Primary Status: Acute (7) Acute encephalopathy Priority: Primary Status: Resolved (8) Diastolic CHF, acute on chronic Priority: Primary Status: Acute (9) Atrial fibrillation with RVR Priority: Primary Status: Acute (10) CAD (coronary artery disease) Priority: Secondary Status: Chronic (11) HTN (hypertension) Priority: Secondary Status: Chronic (12) COPD (chronic obstructive pulmonary disease) Priority: Secondary Status: Chronic (13) Type 2 diabetes mellitus Priority: Secondary Status: Chronic (14) Bladder cancer Priority: Secondary Status: Acute (15) Hypokalemia Priority: Secondary Status: Acute (16) Hypomagnesemia Priority: Secondary Status: Resolved (17) DVT prophylaxis Priority: Primary Status: Acute - Respiratory Orders Smoking Cessation: Smoking cessation has been advised. For more information, call the [place] Tobacco Quit Line at 9-570-AEQQNOW. - Dressing/Wound Care Site: Coccyx Decubitus ulcer Type of Dressing/Treatments w/Frequency: Apply border foam dressing BID and turn patient every 2 hours - Diet/Nutrition Diet/Nutrition Orders: Pureed (Ensure HP TID) - Activity Activity Orders: Ambulate, Walker - Services Needed Following services are medically necessary services: Nursing, Home Health Aide, Physical Therapy, Occupational Therapy - Transfer Medications Prescriptions: Apixaban [Eliquis] 5 mg PO BID #60 tablet Cholestyramine 4 gm PO QIDAC #120 packet Megestrol Acetate [Megace] 20 mg PO BID #30 tablet Omeprazole [PriLOSEC] 40 mg PO BIDAC #60 capsule.dr Propylthiouracil 50 mg PO TID #90 tablet Venlafaxine XR (24 HR) [Effexor Xr] 150 mg PO DAILY #30 cap.er.24h Home Medications: Folic Acid 2 mg PO DAILY 01/11/16 [History] Multivitamin/Iron/Folic Acid [Centrum Complete Multivit Tab] 1 tab PO DAILY [History] Nitroglycerin [Nitrostat] 0.4 mg SL Q5M PRN 01/11/16 [History] Simvastatin [Zocor] 20 mg PO HS 01/11/16 [History] Vitamin E 1,000 units PO DAILY 01/11/16 [History] ALPRAZolam [Xanax 1 MG Tablet] 1 mg PO TID 10/18/16 [History] Oxycodone HCl/Acetaminophen [Percocet 10-325 mg Tablet] 1 tab PO Q6H PRN [History] Lisinopril [Zestril] 40 mg PO DAILY #0 10/21/16 [Rx] Oxygen 3 l .ROUTE AD 04/06/17 [History] Potassium Chloride [Klor-Con Sprinkle] 20 meq PO DAILY 07/15/17 [History] Pregabalin [Lyrica] 75 mg PO BID 07/15/17 [History] Metoprolol XL (24 HR) Succ [Toprol Xl] 75 mg PO BID #60 tab.er.24h 08/16/17 [Rx] Furosemide [Lasix] 40 mg PO DAILY PRN 09/20/17 [History] OxyCODONE ER (12 HR) [OxyCONTIN] 30 mg PO Q12H 09/20/17 [History] hydroCHLOROthiazide [Hydrochlorothiazide] 25 mg PO DAILY 09/20/17 [History] Acetaminophen [Tylenol] 650 mg PO Q6HR PRN tablet 09/27/17 [Rx] Apixaban [Eliquis] 5 mg PO BID #60 tablet 09/27/17 [Rx] Aspirin Enteric Coated [Aspirin EC] 81 mg PO DAILY tablet. 09/27/17 [Rx] Atorvastatin [Lipitor] 20 mg PO HS tablet 09/27/17 [Rx] Cholestyramine 4 gm PO QIDAC #120 packet 09/27/17 [Rx] Megestrol Acetate [Megace] 20 mg PO BID #30 tablet 09/27/17 [Rx] Omeprazole [PriLOSEC] 40 mg PO BIDAC #60 capsule. 09/27/17 [Rx] OxyCODONE ER (12 HR) [OxyCONTIN] 10 mg PO Q12H tab.er.12h 09/27/17 [Rx] Propylthiouracil 50 mg PO TID #90 tablet 09/27/17 [Rx] Venlafaxine XR (24 HR) [Effexor Xr] 150 mg PO DAILY #30 cap.er.24h 09/27/17 [Rx] Allergies/Adverse Reactions: 3 Allergy/AdvReac Type Severity Reaction Status Date / Time morphine Allergy Unknown Unknown Verified 09/21/17 02:00 hydrocodone [From Vicodin] Allergy Swelling Verified 09/20/17 15:38 of Lip/Tongue/Throat Certification: Further, I certify that my clinical findings support that this patient is homebound (i.e. absences from home require considerable and taxing effort and are for medical reasons or hoahaoism services or infrequently or short duration when for other reasons) because: Homebound Reason: Patient requires assistance of a person or device to safely leave home, Leaving home requires considerable and taxing effort due to condition, Altered mental status requiring supervision when leaving home, Severity of cardiac or pulmonary status limits activity tolerance Attestation: My signature below is to certify that this patient is under my care and that I, or nurse practitioner, or a physician's student assistant working with me, has a face-to -face encounter with this patient.
[2017-09-27] MEDS: Folic Acid 1 MG TABLET PO SCH (09:45)
[2017-09-27] MEDS: Aspirin Enteric Coated 81 MG Tablet PO SCH (09:45)
[2017-09-27] MEDS: Pregabalin 75 MG CAPSULE PO SCH (09:45)
[2017-09-27] MEDS: Cholestyramine 4 GM POWD.PACK PO SCH (09:45)
[2017-09-27] MEDS: Venlafaxine XR (24 HR) 150 MG CAP.ER.24H PO SCH (09:45)
[2017-09-27] MEDS: APIXABAN 5 MG TABLET PO SCH (09:47)
== END 2017-09-27 13:50 | disposition home health service (06) | DRG 291 ==
LOC: 2NENU 15:26 → EMEROO 15:26 → 2NENU 19:39 → SUATTDRO 22:29
PROVIDERS: ADMIT Nurse Practitioner Family; ATTEND Internal Medicine

== ENCOUNTER 2017-10-13 08:21 | Inpatient (IN) ==
[2017-10-13] MEDS ORDERED: methylPREDNISolone 125 MG/2 ML VIAL IVP ONE (08:23)
[2017-10-13] MEDS ORDERED: Ipratropium/Albuterol Neb 3 ML IH ONE (08:23)
--- NOTE | 2017-10-13 08:28 | Emergency Department Note ---
Disposition Clinical Impression: Atrial fibrillation with RVR, Dyspnea on exertion Fluid overload Qualifiers: Hypervolemia type: unspecified Qualified Code(s): E87.70 - Fluid overload, unspecified Disposition: Admitted As Inpatient Condition: Fair Forms: ED Satisfaction Letter Time of Disposition: 09:12 SOB HPI - General Chief Complaint: ED Shortness of Breath/Dyspnea Stated Complaint: Chest Pain/NOAH Time Seen by Provider: 10/13/17 08:22 Source: EMS Mode of arrival: ambulatory Limitations: no limitations Nursing Notes Reviewed: Yes Vital Signs Reviewed: Yes - History of Present Illness 62-year-old with history COPD CHF comes in with increasing shortness of breath. Some complaints of chest discomfort. She does have a history CHF has an EF of 60 % on an echo done on 07/16/17. Pt Subjective Complaint: shortness of breath Onset (ago): day(s) Severity: moderate Consistency/Duration: constant Improves with: nothing Worsens with: exertion Known history of: COPD, congestive heart failure Associated symptoms: Reports: chest pain Treatment prior to arrival: oxygen Cough present: Yes Cough Description: Involuntary Cough Frequency: Intermittent - Related Data Home Medications Medication Instructions Recorded Confirmed Folic Acid 2 mg PO DAILY 01/11/16 09/20/17 Multivitamin/Iron/Folic Acid 1 tab PO DAILY 01/11/16 08/13/17 [Centrum Complete Multivit Tab] Nitroglycerin [Nitrostat] 0.4 mg SL Q5M PRN 01/11/16 09/20/17 Simvastatin [Zocor] 20 mg PO HS 01/11/16 09/20/17 Vitamin E 1,000 units PO DAILY 01/11/16 08/13/17 ALPRAZolam [Xanax 1 MG Tablet] 1 mg PO TID PRN 10/18/16 09/20/17 Oxygen 3 l .ROUTE AD 04/06/17 08/13/17 Potassium Chloride [Klor-Con 20 meq PO DAILY 07/15/17 09/20/17 Sprinkle] Pregabalin [Lyrica] 75 mg PO BID 07/15/17 09/20/17 Furosemide [Lasix] 40 mg PO DAILY PRN 09/20/17 09/20/17 hydroCHLOROthiazide 25 mg PO DAILY 09/20/17 09/20/17 [Hydrochlorothiazide] Previous Rx's Medication Instructions Recorded Lisinopril [Zestril] 40 mg PO DAILY #0 10/21/16 Metoprolol XL (24 HR) Succ [Toprol 75 mg PO BID #60 tab.er.24h 08/16/17 Xl] Acetaminophen [Tylenol] 650 mg PO Q6HR PRN tablet 09/27/17 Apixaban [Eliquis] 5 mg PO BID #60 tablet 09/27/17 Aspirin Enteric Coated [Aspirin EC] 81 mg PO DAILY tablet. 09/27/17 Atorvastatin [Lipitor] 20 mg PO HS tablet 09/27/17 Cholestyramine 4 gm PO QIDAC #120 packet 09/27/17 Megestrol Acetate [Megace] 400 mg PO BID 30 Days #2400 mls 09/27/17 Omeprazole [PriLOSEC] 40 mg PO BIDAC #60 capsule. 09/27/17 OxyCODONE ER (12 HR) [OxyCONTIN] 10 mg PO Q12H PRN #14 09/27/17 Propylthiouracil 50 mg PO TID #90 tablet 09/27/17 Venlafaxine XR (24 HR) [Effexor Xr] 150 mg PO DAILY #30 cap.er.24h 09/27/17 Allergies Allergy/AdvReac Type Severity Reaction Status Date / Time morphine Allergy Unknown Unknown Verified 09/21/17 02:00 hydrocodone [From Vicodin] Allergy Swelling Verified 09/20/17 15:38 of Lip/Tongue/Throat All systems ED: reviewed and negative except as stated. Constitutional: Denies: fever, chills, weakness, weight change Eyes: Denies: eye pain, eye discharge, vision change ENT ED: Denies: ear pain, throat pain, dental pain, hearing loss, epistaxis, congestion, dysphagia Cardiovascular: Denies: chest pain, palpitations, dyspnea on exertion, edema, syncope Respiratory: Reports: cough, dyspnea, wheezes. Denies: hemoptysis, stridor Gastrointestinal: Denies: abdominal pain, nausea, vomiting, diarrhea, constipation, hematemesis, melena, hematochezia Genitourinary: Denies: dysuria, frequency, hematuria, discharge Musculoskeletal: Denies: back pain, neck pain, arthralgia, myalgia Integumentary: Denies: rash, abrasion, lesions Neurological: Denies: headache, weakness, numbness, paresthesias, confusion, abnormal gait, vertigo Psychiatric: Denies: anxiety, depression, suicidal thoughts, homicidal thoughts , auditory hallucinations, visual hallucinations Endocrine: Denies: fatigue Hematological/Lymphatic: Denies: easy bleeding, easy bruising Allergic/Immunologic: Denies: facial swelling, urticaria Past Medical History - Past Medical History Medical history: Reports: atrial fibrillation, cancer, CHF, coronary artery disease, hyperlipidemia, hypertension, osteoporosis, other Surgical history: Reports: cholecystectomy, coronary bypass (CABG), hysterectomy (Total), other (bowel surgery) Psychiatric history: Reports: depression - Social History Smoking Status: Never smoker Smokeless Tobacco Status: No Alcohol use: Reports: none Drug use: Reports: none Physical Exam - General Limitations: no limitations General appearance: alert, in no apparent distress - Head Head exam: atraumatic, normocephalic, normal inspection - Eye Eye exam: Present: normal appearance, PERRL, EOMI - ENT ENT exam: normal exam, normal oropharynx, mucous membranes moist - Neck Neck exam: Present: normal inspection, full ROM, trachea midline - Chest Chest inspection: Present: normal inspection, symmetric chest wall rise - Respiratory Respiratory exam: Present: wheezes, accessory muscle use, prolonged expiratory phase - Cardiovascular Cardiovascular exam: Present: tachycardia, irregular rhythm - Abdominal Exam Abdominal exam: Present: soft, Non-Tender. Absent: tenderness, distention, guarding, rebound, rigidity - Extremities Exam Extremities exam: Present: normal inspection, full ROM. Absent: tenderness, pedal edema - Expanded Lower Extremity Exam Neurovascular/Tendon exam: Absent: motor deficit, sensory deficit, tendon deficit Gait: observed and normal - Back Exam Back exam: Present: normal inspection, full ROM. Absent: tenderness - Neurological Exam Neurological exam: Present: alert, oriented X3 - Psychiatric Psychiatric exam: Present: normal affect, normal mood - Skin Skin exam: Present: warm, dry, intact, normal color Course - Reevaluation(s) Reevaluation #1: 62-year-old who comes in complaining of increasing shortness of breath and found to have a atrial fib with RVR which she's had in the past. Her echo does show an EF of 60%. She was started on a Cardizem drip. She is given Lasix as her BNP was elevated. Time: 09:10 - Consultations Consultation #1: Discussed with Dr. Nancy, admit. Time: 08:36 Vital Signs Temperature 98.1 F 10/13/17 08:23 Pulse Rate 161 10/13/17 08:23 Respiratory Rate 26 10/13/17 08:23 Blood Pressure 170/124 10/13/17 08:23 O2 Sat by Pulse Oximetry 100 10/13/17 08:23 Temperature 98.1 F 10/13/17 08:23 Pulse Rate 149 10/13/17 08:47 Respiratory Rate 26 10/13/17 08:47 Blood Pressure 166/90 10/13/17 08:47 O2 Sat by Pulse Oximetry 100 10/13/17 08:47 Oxygen Delivery Oxygen Delivery Non Rebreather Mask Shortness of Breath/Dyspnea - Lab Data Lab results reviewed: Yes I reviewed the patient's lab results. Result diagrams: 10/13/17 08:34 10/13/17 08:34 Lab Results 10/13/17 10/13/17 10/13/17 Range/Units 08:34 08:34 08:34 WBC 12.3 H (4.3-11.1) K/mcL RBC 3.47 L (3.82-4.97) M/mcL Hgb 8.9 L (11.5-15.4) g/dL Hct 28.5 L (35.3-44.9) % MCV 82.1 L (83.0-100.0) fL MCH 25.6 L (28.0-33.3) pg MCHC 31.2 L (31.6-35.5) g/dL RDW 19.0 H (11.5-14.5) % Plt Count 159 (140-400) K/mcL MPV 11.9 (9.4-12.4) fL Immature Gran % 0.5 (0-4) % Seg Neutrophils % 91.4 % Lymphocytes % 5.4 % Monocytes % 2.6 % Eosinophils % 0.0 % Basophils % 0.1 % Neutrophils # 11.3 H (1.6-8.9) K/mcL Lymphocytes # 0.7 (0.6-4.6) K/mcL Monocytes # 0.3 (0.0-1.3) K/mcL Eosinophils # 0.0 (0.0-0.6) K/mcL Basophils # 0.0 (0.0-0.2) K/mcL Immature Plt Fraction 8.3 H (1.1-6.1) % Sodium 138 (136-145) mEq/L Potassium 3.4 L (3.5-4.5) mEq/L Chloride 108 (98-109) mEq/L Carbon Dioxide 18 L (19-29) mEq/L BUN 12 (7-20) mg/dL Creatinine 0.41 L (0.57-1.11) mg/dL Est GFR ( Amer) > 60 (> 60) Est GFR (Non-Af Amer) > 60 (> 60) BUN/Creatinine Ratio 29 H (6-26) Glucose 103 H (70-99) mg/dL Calculated Osmolality 286 (280-300) Lactic Acid 1.8 (0.5-2.2) mmol/L Calcium 8.5 L (8.6-10.8) mg/dL Troponin I (0-0.03) ng/mL B-Natriuretic Peptide (0-100) pg/mL 10/13/17 10/13/17 Range/Units 08:34 08:34 WBC (4.3-11.1) K/mcL RBC (3.82-4.97) M/mcL Hgb (11.5-15.4) g/dL Hct (35.3-44.9) % MCV (83.0-100.0) fL MCH (28.0-33.3) pg MCHC (31.6-35.5) g/dL RDW (11.5-14.5) % Plt Count (140-400) K/mcL MPV (9.4-12.4) fL Immature Gran % (0-4) % Seg Neutrophils % % Lymphocytes % % Monocytes % % Eosinophils % % Basophils % % Neutrophils # (1.6-8.9) K/mcL Lymphocytes # (0.6-4.6) K/mcL Monocytes # (0.0-1.3) K/mcL Eosinophils # (0.0-0.6) K/mcL Basophils # (0.0-0.2) K/mcL Immature Plt Fraction (1.1-6.1) % Sodium (136-145) mEq/L Potassium (3.5-4.5) mEq/L Chloride (98-109) mEq/L Carbon Dioxide (19-29) mEq/L BUN (7-20) mg/dL Creatinine (0.57-1.11) mg/dL Est GFR ( Amer) (> 60) Est GFR (Non-Af Amer) (> 60) BUN/Creatinine Ratio (6-26) Glucose (70-99) mg/dL Calculated Osmolality (280-300) Lactic Acid (0.5-2.2) mmol/L Calcium (8.6-10.8) mg/dL Troponin I 0.03 (0-0.03) ng/mL B-Natriuretic Peptide 4469 H (0-100) pg/mL - EKG Data EKG attestation: Yes I reviewed and interpreted this EKG. Rate: Reports: tachycardia Rhythm: Reports: A.Fib Interpretation: Reports: no acute changes Critical Care Time Critical Care Time: Yes Total Critical Care Time: 30 Attestation: Chest X-Ray 10/13/17 08:23 IMPRESSION: 1. Compared to the prior exam there is improved effusions and lung base consolidation which does persist and is mildly more prominent on the right. 2. Pulmonary venous hypertension. D/ / 10/13/2017 09:05:34 Omer Bynum MD / Wendy Lim Interpreting Provider: Omer Bynum MD
[2017-10-13 08:41] LABS: Basophils % 0.1 %; Hematocrit 28.5 % (35.3-44.9); Hemoglobin 8.9 g/dL (11.5-15.4); Immature Granulocytes % 0.5 % (0-4); Immature Platelets 8.3 % (1.1-6.1); Lymphocytes # 0.7 K/mcL (0.6-4.6); Lymphocytes % 5.4 %; Mean Corpuscular HGB Conc 31.2 g/dL (31.6-35.5); Mean Corpuscular Hemoglobin 25.6 pg (28.0-33.3); Mean Corpuscular Volume 82.1 fL (83.0-100.0); Mean Platelet Volume 11.9 fL (9.4-12.4); Monocytes # 0.3 K/mcL (0.0-1.3); Monocytes % 2.6 %; Neutrophils # 11.3 K/mcL (1.6-8.9); Platelet Count 159 K/mcL (140-400); Red Blood Count 3.47 M/mcL (3.82-4.97); Segmented Neutrophils % 91.4 %
[2017-10-13 08:53] LABS: BUN/Creatinine Ratio 29 (6-26); Blood Urea Nitrogen 12 mg/dL (7-20); Calcium 8.5 mg/dL (8.6-10.8); Carbon Dioxide 18 mEq/L (19-29); Chloride 108 mEq/L (98-109); Glucose 103 mg/dL (70-99); Osmolality,Calculated 286 (280-300); Potassium 3.4 mEq/L (3.5-4.5); Sodium 138 mEq/L (136-145); eGFR For African Americans > 60 (> 60); eGFR For Non-African Americans > 60 (> 60)
[2017-10-13] MEDS: dilTIAZem HCl 100 MG in D5% in Water 50 ML IVC SCH (09:06)
[2017-10-13] MEDS ORDERED: Furosemide 20 MG/2 ML VIAL IVP ONE (09:09)
[2017-10-13] MEDS ORDERED: *HR* Morphine 2 MG/ML SYRINGE IVP PRN (12:32)
[2017-10-13] MEDS ORDERED: Nitroglycerin 0.4 MG TAB.SUBL SL PRN (13:59)
[2017-10-13] MEDS ORDERED: Naloxone 0.4 MG/ML INJ IVP PRN (14:14)
[2017-10-13] MEDS ORDERED: Acetaminophen 325 MG TABLET PO PRN (14:14)
[2017-10-13] MEDS ORDERED: Ondansetron 4 MG/2 ML VIAL IVP PRN (14:14)
--- NOTE | 2017-10-13 14:34 | Internal Med History&Physical ---
<LeaNawaf arambula - Last Filed: 10/13/17 15:22> Date of Encounter: 10/13/17 Time of Encounter: 13:30 Assessment and Plan (1) Acute exacerbation of CHF (congestive heart failure) Current visit: Yes Status: Acute Acute exacerbation of CHF. Echocardiogram in June 2017 showed LVEF of 60%. Echo repeated in July during previous4 admission for similar sx. Diastolic dysfunction. One view CXR today shows improved pleural effusions and lung base consolidation which does persist and is mildly more prominent on the right. Pulmonary venous hypertension. Continuous cardiac telemetry. Initial troponin 0.03. Trend 1. PO lasix 20 mg TID. Continue patient's hydrochlorothiazide, metoprolol, and lisinopril. Supplemental O2 w/titration and SpO2 monitoring. DuoNebs Q6 scheduled. Monitor f/u labs and patient for signs of fluid overload. Patient high risk for cardiac event based on current paroxysmal atrial fibrillation w/RVR, sx, hx, and risk factors. Inpatient. Qualifiers: Congestive heart failure type: diastolic Qualified Code(s): I50.33 - Acute on chronic diastolic (congestive) heart failure (2) Chest pressure Current visit: Yes Status: Acute Acute chest pressure and central chest most likely due to acute exacerbation of CHF currently. Initial troponin 0.03. Will trend 1. Continuous cardiac telemetry. Continue patient's hydrochlorothiazide, metoprolol, and lisinopril. Continue simvastatin and aspirin therapy. Echocardiogram on 08/13/17 showed LVEF 60%, normal left ventricular size and systolic function, indeterminate left ventricular diastolic function, normal right ventricular size and function , mild aortic regurgitation, mild mitral regurgitation, mild tricuspid regurgitation, mild pulmonary hypertension by TR gradient. Pt. to be monitored closely. (3) Atrial fibrillation with RVR Current visit: Yes Status: Acute Acute paroxysmal atrial fibrillation w/RVR. Patient has history of chronic and persistent atrial fibrillation. Diltiazem drip ordered. Continuous cardiac telemetry. Repeat EKG. Monitor patient closely. (4) Weakness generalized Current visit: Yes Status: Acute Acute generalized weakness with fatigue. Falls/Safety precautions. PT/OT consults ordered. Nutrition consult ordered for PO supplementation. (5) Hypokalemia Current visit: Yes Status: Acute Acute hypokalemia with potassium level of 3.4 on admission. Continue patient's Klor-Con sprinkles. Monitor f/u labs. (6) Anemia Current visit: Yes Status: Chronic Hx of chronic anemia with current hemoglobin of 8.9 and Hct of 28.5 which are near patient's baseline. Continue patient's folic acid and B12 1000 mcg once. Fecal Hemoccult ordered. Will monitor follow-up labs. Qualifiers: Anemia type: iron deficiency Iron deficiency anemia type: chronic blood loss Qualified Code(s): D50.0 - Iron deficiency anemia secondary to blood loss (chronic) (7) CAD (coronary artery disease) Current visit: Yes Status: Chronic Hx of chronic CAD. Continuous cardiac telemetry. Continue patient's hydrochlorothiazide, metoprolol, lisinopril, simvastatin, Eliquis, and aspirin therapy. Qualifiers: Coronary Disease-Associated Artery/Lesion type: [place] artery [place] vs. transplanted heart: [place] heart Associated angina: without angina Qualified Code(s): I25.10 - Atherosclerotic heart disease of [place] coronary artery without angina pectoris (8) Cachexia Current visit: Yes Status: Chronic Chronic cachexia with weight of 45.5 kg and BMI of 17.8, down from weight of 55.9 kg and BMI of 21.8 on 09/20/17. Continue Megace. Nutrition consult ordered for PO supplementation. Cardiac diet. (9) HLD (hyperlipidemia) Current visit: Yes Status: Chronic Hx chronic HLD. Lipid panel in a.m. Continue patient's simvastatin in a.m. Qualifiers: Hyperlipidemia type: pure hypercholesterolemia Qualified Code(s): E78.00 - Pure hypercholesterolemia, unspecified; E78.0 - Pure hypercholesterolemia (10) HTN (hypertension) Current visit: Yes Status: Chronic Hx of chronic hypertension. Monitor patient vital signs. Continue hydrochlorothiazide, metoprolol, and lisinopril. Qualifiers: Hypertension type: essential hypertension Qualified Code(s): I10 - Essential (primary) hypertension (11) Hyperthyroidism Current visit: Yes Status: Chronic Hx of chronic hyperthyroidism. TSH, thyroid stimulating immunoglobulin, T3, and T4 levels ordered. Will continue patient's prophylthioracil and cholestyramine for now. Monitor f/u labs. (12) DVT prophylaxis Current visit: Yes Status: Acute Continue patient's Eliquis for DVT prophylaxis. Monitor patient for signs of bleeding. Internal Medicine - H&P: HPI Chief complaint: SOB/Dyspnea Admitted From: Emergency Dept Plans for Post Hospital Care: Home History of present illness: Ms. Mcdaniels is a 62 year old female with medical hx of atrial fibrillation, CHF, CAD, HLD, HTN, and osteoporosis presents from the ED with chief complaint of SOB and dyspnea for the past two months that she states became worse over the past two days. She reports that her paroxysmal atrial fibrillation became worse yesterday with her SOB. Pt. states that she is SOB, dyspneic, weak, fatigued, nauseous, and experiencing chest pressure. Pt. denies recent illness, fever, chills, vomiting, changes in vision, abdominal pain, diarrhea, constipation, unusual bleeding, headache, dizziness, lightheadedness, pre-syncope, or syncope. Past Med Surg Social Fam HX - Past Medical History Source: patient, old records reviewed Medical history: atrial fibrillation, CHF, COPD, coronary artery disease, hyperlipidemia, hypertension, osteoporosis, other Psychiatric history: depression - Past Surgical History Surgical History: cholecystectomy, coronary bypass (CABG), hysterectomy, other - Social History Smoking Status: Never smoker Smokeless Tobacco Status: No Alcohol use: none Drug use: none Current living situation: Home Activity Level: Independent ambulation Recent Out of Country Travel Within the Last 8 Weeks: No Exposure or Possible Exposure to Illness During Travel: No - Family History Father Race: Family Member Ethnicity: Non- Living Status: Age at : 43 Cause of : [place] Hx Family Cardiac Disorders: Yes ([place]) Brother Race: Family Member Ethnicity: Non- Living Status: Cause of : in house fire at 18M Sister Age: 63 Race: Family Member Ethnicity: Non- Twin of Family Member: Yes, Identical Living Status: Age at : 67 Cause of : Colon cancer Hx Family Cancer: Yes (Colon) Mother Adopted: No Race: Family Member Ethnicity: Non- Living Status: Age at : 45 Cause of : Colon cancer Hx Family Cancer: Yes (Colon ) Internal Medicine - H&P: Meds Folic Acid 2 mg PO DAILY 01/11/16 [History] Multivitamin/Iron/Folic Acid [Centrum Complete Multivit Tab] 1 tab PO DAILY [History] Nitroglycerin [Nitrostat] 0.4 mg SL Q5M PRN 01/11/16 [History] Simvastatin [Zocor] 20 mg PO HS 01/11/16 [History] Vitamin E 1,000 units PO DAILY 01/11/16 [History] ALPRAZolam [Xanax 1 MG Tablet] 1 mg PO TID PRN 10/18/16 [History] Lisinopril [Zestril] 40 mg PO DAILY #0 10/21/16 [Rx] Oxygen 3 l .ROUTE AD 04/06/17 [History] Potassium Chloride [Klor-Con Sprinkle] 20 meq PO DAILY 07/15/17 [History] Pregabalin [Lyrica] 75 mg PO BID 07/15/17 [History] Furosemide [Lasix] 40 mg PO DAILY PRN 09/20/17 [History] hydroCHLOROthiazide [Hydrochlorothiazide] 25 mg PO DAILY 09/20/17 [History] Acetaminophen [Tylenol] 650 mg PO Q6HR PRN tablet 09/27/17 [Rx] Apixaban [Eliquis] 5 mg PO BID #60 tablet 09/27/17 [Rx] Aspirin Enteric Coated [Aspirin EC] 81 mg PO DAILY tablet. 09/27/17 [Rx] Atorvastatin [Lipitor] 20 mg PO HS tablet 09/27/17 [Rx] Cholestyramine 4 gm PO QIDAC #120 packet 09/27/17 [Rx] Omeprazole [PriLOSEC] 40 mg PO BIDAC #60 capsule. 09/27/17 [Rx] Propylthiouracil 50 mg PO TID #90 tablet 09/27/17 [Rx] Venlafaxine XR (24 HR) [Effexor Xr] 150 mg PO DAILY #30 cap.er.24h 09/27/17 [Rx] Megestrol Acetate [Megace] 40 mg PO BID 10/13/17 [History] Metoprolol XL (24 HR) Succ [Toprol Xl] 75 mg PO DAILY 10/13/17 [History] OxyCODONE ER (12 HR) [OxyCONTIN] 30 mg PO Q12H PRN 10/13/17 [History] Oxycodone HCl/Acetaminophen [Percocet 5-325 mg Tablet] 1 tab PO Q6H PRN [History] 3 Allergy/AdvReac Type Severity Reaction Status Date / Time morphine Allergy Unknown Unknown Verified 09/21/17 02:00 hydrocodone [From Vicodin] Allergy Swelling Verified 09/20/17 15:38 of Lip/Tongue/Throat All Systems PM: A 10-system review of systems was performed and is negative for pertinent findings except as documented above in the HPI. - Constitutional Constitutional: as per HPI, fatigue, weakness, no chills, no fever(s), no night sweats - EENT Eyes: no change in vision, no discharge, no pain, no photophobia Ears: no ear discharge, no ear pain, no tinnitus Nose, mouth and throat: no dysphagia, no nasal discharge, no neck pain, no sore throat - Breasts Breasts: as per HPI - Cardiovascular Cardiovascular ROS IM: as per HPI, dyspnea, dyspnea on exertion, irregular heart rhythm, orthopnea, no chest pain (Pressure), no diaphoresis, no lightheadedness, no palpitations, no syncope - Respiratory Respiratory: as per HPI, cough, dyspnea, dyspnea on exertion - Gastrointestinal Gastrointestinal: as per HPI, nausea, no abdominal pain, no diarrhea, no hematemesis, no hematochezia, no melena, no vomiting - Genitourinary Genitourinary: no change in urinary stream, no dysuria, no flank pain, no hematuria Menstruation: as per HPI - Musculoskeletal Musculoskeletal ROS IM: no numbness, no tingling - Integumentary Integumentary IM: no rash, no unusual bruising - Neurological Neurological ROS: no confusion, no convulsions, no focal weakness, no numbness, no tingling, no tremor(s) - Psychiatric Psychiatric: as per HPI, depression - Endocrine Endocrine IM: as per HPI - Hematologic/Lymphatic Hematologic/Lymphatic: no easy bruising - Allergic/Immunologic Allergic/Immunologic: as per HPI - Constitutional Vitals: Temp Pulse Resp BP Pulse Ox 98.8 F 88 18 134/76 92 10/13/17 10:31 10/13/17 13:32 10/13/17 13:32 10/13/17 13:32 10/13/17 13:32 General appearance: Present: cachectic, cooperative, A&O X 3, pleasant, no acute distress, underweight, answers questions appropriately - Head Head exam: Present: atraumatic, normocephalic - Eye Eye exam: Present: PERRL, conjuntiva pink, sclera anicteric Pupils: Present: PERRL - ENT ENT exam: Present: normal exam, normal external ear exam - Neck Neck exam general surgery: Present: normal inspection, supple, trachea midline. Absent: lymphadenopathy - Respiratory Respiratory exam: Present: decreased breath sounds. Absent: accessory muscle use, rales, rhonchi, wheezes - Cardiovascular Cardiovascular exam: Present: irregular rhythm - GI/Abdominal GI/Abdominal exam: Present: normal bowel sounds, soft, no peritoneal signs. Absent: distended, tenderness - Rectal Rectal exam: Present: deferred - Additional comments: exam deferred. - Extremities Exam Extremities exam: Present: pedal edema, warm, radial pulses palpable and symmetrical - Back Exam Back exam: Present: normal inspection - Neurological Exam Neurological exam: Present: CN II-XII intact, oriented X3, no focal deficits. Absent: pronater drift, facial droop, speech deficit - Psychiatric Psychiatric exam: Present: normal affect, normal mood - Skin Skin exam: Present: dry, intact Internal Med - H&P Results - Labs CBC & Chem 7: 10/13/17 08:34 10/13/17 08:34 - EKG Data Prior EKG available for review: yes Interpretation IM: suggestive of ischemia EKG comments: 10/13/17 14:51 EKG dated 09/20/[address] and T-wave abnormality. Abnormal rhythm ECG. EKG dated 10/13/17 shows atrial fibrillation with rapid ventricular response, minimal voltage criteria for LVH, consider normal variant; ST deviation and moderate T-wave abnormality, consider lateral ischemia. Abnormal ECG. <Ariel Cruz P - Last Filed: 10/14/17 18:56> Date of Encounter: 10/14/17 Internal Medicine - H&P: HPI History of present illness: Ms. Mcdaniels is a 62 year old female All Systems PM: A 10-system review of systems was performed and is negative for pertinent findings except as documented above in the HPI. - Constitutional Vitals: Temp Pulse Resp BP Pulse Ox 98.1 F 100 16 101/60 94 10/14/17 15:29 10/14/17 15:29 10/14/17 15:29 10/14/17 15:29 10/14/17 15:29 Internal Med - H&P Results - Labs CBC & Chem 7: 10/14/17 05:06 10/14/17 05:06 Labs: Short CBC 10/14/17 Range/Units 05:06 WBC 9.6 (4.3-11.1) K/mcL Hgb 7.5 L (11.5-15.4) g/dL Hct 23.9 L (35.3-44.9) % Plt Count 110 L (140-400) K/mcL Neutrophils # 8.3 (1.6-8.9) K/mcL BMP 10/14/17 05:06 Sodium 138 Potassium 3.4 L Chloride 107 Carbon Dioxide 22 BUN 14 Creatinine 0.55 L Glucose 221 H Calcium 8.3 L Liver Function 10/14/17 Range/Units 05:06 Total Bilirubin 1.3 H (0.2-1.2) mg/dL AST 22 (5-34) Units/L ALT 23 (0-55) Units/L Alkaline Phosphatase 260 H (38-126) Units/L Albumin 2.2 L (3.5-5.0) g/dL - Attending Attestation I examined this patient and my medical decision-making was reviewed with the Resident Physician/RN CARDIOLOGY. I agree with the documented findings, disposition and treatment plan as described except to the extent set forth below. Patient seen and examined. Chart reviewed. agree with FRANCOIS Mccracken's assessment and Plan
[2017-10-13] MEDS: *HR* OxyCODONE/APAP 5/325 TABLET PO PRN ×2 (15:02→20:06)
[2017-10-13] MEDS ORDERED: Cyanocobalamin (B-12) 1,000 MCG/ML VIAL IM ONE (15:08)
[2017-10-13] MEDS: Ipratropium/Albuterol Neb 3 ML IH SCH ×2 (15:32→22:20)
[2017-10-13 15:44] LABS: Triiodothyronine (T3) Free 19.2 pg/mL (1.71-3.71)
[2017-10-13] MEDS: Furosemide 20 MG TABLET PO SCH (17:20)
[2017-10-13] MEDS: Cholestyramine 4 GM POWD.PACK PO SCH ×2 (17:20→22:21)
[2017-10-13] MEDS: *HR* OxyCODONE ER (12 HR) 10 MG TABLET PO PRN (19:14)
[2017-10-13] MEDS: ALPRAZolam 1 MG TABLET PO PRN (22:20)
[2017-10-13] MEDS: Pregabalin 75 MG CAPSULE PO SCH (22:20)
[2017-10-13] MEDS: APIXABAN 5 MG TABLET PO SCH (22:21)
[2017-10-14] MEDS: Ipratropium/Albuterol Neb 3 ML IH SCH ×4 (03:59→22:57)
[2017-10-14] MEDS: *HR* OxyCODONE/APAP 5/325 TABLET PO PRN ×2 (04:16→13:50)
[2017-10-14] MEDS: dilTIAZem HCl 100 MG in D5% in Water 50 ML IVC SCH (04:16)
[2017-10-14 05:17] LABS: Basophils % 0.1 %; Hematocrit 23.9 % (35.3-44.9); Hemoglobin 7.5 g/dL (11.5-15.4); Immature Granulocytes % 0.8 % (0-4); Lymphocytes # 0.7 K/mcL (0.6-4.6); Lymphocytes % 7.6 %; Mean Corpuscular HGB Conc 31.4 g/dL (31.6-35.5); Mean Corpuscular Hemoglobin 25.7 pg (28.0-33.3); Mean Corpuscular Volume 81.8 fL (83.0-100.0); Mean Platelet Volume 12.4 fL (9.4-12.4); Monocytes # 0.4 K/mcL (0.0-1.3); Monocytes % 4.4 %; Neutrophils # 8.3 K/mcL (1.6-8.9); Platelet Count 110 K/mcL (140-400); Red Blood Count 2.92 M/mcL (3.82-4.97); Red Cell Distribution Width 18.8 % (11.5-14.5); Segmented Neutrophils % 87.1 %
[2017-10-14 05:21] LABS: INR 1.9; Prothrombin Time 21.2 Seconds (9.4-12.1)
[2017-10-14 05:24] LABS: Activated Partial Thrombo Time 29.1 Seconds (26.0-36.0)
[2017-10-14 05:35] LABS: Alanine Aminotransferase 23 Units/L (0-55); Albumin 2.2 g/dL (3.5-5.0); Albumin/Globulin Ratio 0.6 (1.1-2.2); Alkaline Phosphatase 260 Units/L (38-126); Aspartate Amino Transferase 22 Units/L (5-34); BUN/Creatinine Ratio 25 (6-26); Bilirubin,Total 1.3 mg/dL (0.2-1.2); Blood Urea Nitrogen 14 mg/dL (7-20); Calcium 8.3 mg/dL (8.6-10.8); Carbon Dioxide 22 mEq/L (19-29); Chloride 107 mEq/L (98-109); Chol/HDL Ratio 1.9 (0-4.9); Glucose 221 mg/dL (70-99); HDL Cholesterol 41 mg/dL (40-59); LDL Cholesterol,Calculated 29 mg/dL (0-99); Magnesium 1.6 mg/dL (1.6-2.6); Osmolality,Calculated 293 (280-300); Potassium 3.4 mEq/L (3.5-4.5); Sodium 138 mEq/L (136-145); Total Protein 6.2 g/dL (6.0-8.3); Triglycerides 42 mg/dL (< 150); eGFR For African Americans > 60 (> 60); eGFR For Non-African Americans > 60 (> 60)
[2017-10-14 05:36] LABS: Cholesterol 78 mg/dL (< 200)
[2017-10-14] MEDS: Lisinopril 20 MG TABLET PO SCH (09:32)
[2017-10-14] MEDS: hydroCHLOROthiazide 25 MG TABLET PO SCH (09:33)
[2017-10-14] MEDS: Furosemide 20 MG TABLET PO SCH (09:33)
[2017-10-14] MEDS: APIXABAN 5 MG TABLET PO SCH ×2 (09:33→22:32)
[2017-10-14] MEDS: Metoprolol XL (24 HR) Succ 50 MG TAB.ER.24H PO SCH (09:33)
[2017-10-14] MEDS: Cholestyramine 4 GM POWD.PACK PO SCH ×4 (09:33→22:32)
[2017-10-14] MEDS: *HR* OxyCODONE ER (12 HR) 10 MG TABLET PO PRN (09:33)
[2017-10-14] MEDS: Venlafaxine XR (24 HR) 150 MG CAP.ER.24H PO SCH (09:33)
[2017-10-14] MEDS: Multivit/Ca/Min/Fe/FA 1 TAB TABLET PO SCH (09:34)
[2017-10-14] MEDS: Aspirin Enteric Coated 81 MG Tablet PO SCH (09:34)
[2017-10-14] MEDS: Pregabalin 75 MG CAPSULE PO SCH ×2 (09:34→22:32)
[2017-10-14] MEDS: Folic Acid 1 MG TABLET PO SCH (09:46)
--- NOTE | 2017-10-14 12:47 | Cardiology Consult Note ---
<Melvina Thomas - Last Filed: 10/14/17 13:03> Date of Encounter: 10/14/17 Time of Encounter: 11:30 Assessment and Plan (1) Diastolic congestive heart failure, NYHA class 3 Current Visit: No Status: Chronic Per cardiology: -Known diastolic CHF. Of note, patient no-showed to her hospital follow up appointment in August. -Last TTE with LVEf 60%, indeterminate diastolic function, mild AR, mild MR, mild TR, mild pulmonary hypertension. -BNP on admisison 4469. -CHest x-ray with improved effusions and lung base consolidations. -2+ bilateral lower extremity pitting edema. -On lasix po currently net negative 1400ml. -Weight today 46.8kg. Weight at PCP 08/2017 54kg. -Lasix changed to 40mg IV BID. -Strict i/os, fluid restriction, daily weights. -CHF educated re-inforced. -Will continue to monitor. Qualifiers: Congestive heart failure chronicity: acute on chronic Qualified Code(s): I50.33 - Acute on chronic diastolic (congestive) heart failure (2) Atrial fibrillation with RVR Current Visit: Yes Status: Chronic Per cardiology: -Known Paroxysmal atrial fibrillation, was RVR on admission. -Currently SR, average HR 90. -On beta delfino. -ON eliquis for anticoagulation. -Of note, TSH 0-management per primary service. -Will start cardizem 30mg [id number]. -Will continue to monitor. -Can consider EP consult in am. (3) Chest pressure Current Visit: Yes Status: Acute Per cardiology: -Reports chest pressure at rest, while in atrial fibrillation with RVR. -Denies current chest pressure. -ECG with no acute ischemic changes. -Troponins negative x2. -PLan for stress in am. -Will make NPO after midnight. (4) CAD (coronary artery disease) Current Visit: No Status: Chronic Per cardiology: -KNown CAD s/p CABG. -Last [facility] 12/2015 with 100% proximal LAD stenosis, circumflex angiographically free of disease, 80% proximal RCA stenosis and had collateral which feed from left to right, 100% distal RCA, KOTHARI to LAD patent, SVG to PDA occluded. -ON asa, statin, beta delfino. -HAd chest pain on admission. -Last TTE as above. -PLan for stress in am. -Will continue to [facility]. Qualifiers: Coronary Disease-Associated Artery/Lesion type: unspecified vessel or lesion type [place] vs. transplanted heart: [place] heart Associated angina: angina presence unspecified Qualified Code(s): I25.10 - Atherosclerotic heart disease of [place] coronary artery without angina pectoris Discussion w patient/family: The assessment and plan as outlined above was discussed with the patient who expressed understanding and agreement. All questions were answered. Thank you for involving us in the care of your patient. Please call with any questions. Discussed and reviewed with . History of Present Illness Consult date: 10/14/17 Requesting physician: Mervin Singh Consult reason: acute on chronic CHF, a.fib RVR Chief complaint: shortness of breath, racing heart History of present illness: Ms. Mcdaniels is a 62 year old female with a relevant past medical history of diastolic CHF, atrial fibrillation, CAD s/p CABG x2 and previous PCI, rheumatic fever, DM, HTN, HDL, carotid artery disease, chronic angina. Patient presented to [facility] with complaints of increased shortness of breath and racing heart. Patient states she also had some chest pressure. Patient states she had been noticing over the past couple of days that her heart was racing and was associated with chest pressure. Patient states this occured at rest. Denies exertional chest pain. Patient denies current chest pain. States shortness of breath is mildly improved since admission. Past Med Surg Social Fam HX - Past Medical History Attestation: Yes The following information was validated with the patient. Source: patient, old records reviewed Medical history: atrial fibrillation, CHF, COPD, coronary artery disease, hyperlipidemia, hypertension, osteoporosis, other Psychiatric history: depression - Past Surgical History Surgical History: cholecystectomy, coronary bypass (CABG), hysterectomy, other - Social History Smoking Status: Never smoker Smokeless Tobacco Status: No Alcohol use: none Drug use: none - Family History Father Race: Family Member Ethnicity: Non- Living Status: Age at : 43 Cause of : ME Hx Family Cardiac Disorders: Yes (ME) Brother Race: Family Member Ethnicity: Non- Living Status: Cause of : in house fire at 18M Sister Age: 63 Race: Family Member Ethnicity: Non- Twin of Family Member: Yes, Identical Living Status: Age at : 67 Cause of : Colon cancer Hx Family Cardiac Disorders: Yes (afib) Hx Family Cancer: Yes (Colon) Mother Adopted: No Race: Family Member Ethnicity: Non- Living Status: Age at : 46 Cause of : Colon cancer Hx Family Cardiac Disorders: Yes (ME) Hx Family Respiratory Disorders: No Hx Family Cancer: Yes (Colon ) Hx Family GI Disorders: Yes (Bowel Cancer) Hx Family Endocrine Disorder: Yes (DM) Hx Family Neuromuscular Disorders: No Hx Family Neurologic Disorders: No Hx Family HEENT Disorders: No Hx Family Autoimmune Disorders: No Medications and Allergies Folic Acid 2 mg PO DAILY 01/11/16 [History] Multivitamin/Iron/Folic Acid [Centrum Complete Multivit Tab] 1 tab PO DAILY [History] Nitroglycerin [Nitrostat] 0.4 mg SL Q5M PRN 01/11/16 [History] Simvastatin [Zocor] 20 mg PO HS 01/11/16 [History] Vitamin E 1,000 units PO DAILY 01/11/16 [History] ALPRAZolam [Xanax 1 MG Tablet] 1 mg PO TID PRN 10/18/16 [History] Lisinopril [Zestril] 40 mg PO DAILY #0 10/21/16 [Rx] Oxygen 3 l .ROUTE AD 04/06/17 [History] Potassium Chloride [Klor-Con Sprinkle] 20 meq PO DAILY 07/15/17 [History] Pregabalin [Lyrica] 75 mg PO BID 07/15/17 [History] Furosemide [Lasix] 40 mg PO DAILY PRN 09/20/17 [History] hydroCHLOROthiazide [Hydrochlorothiazide] 25 mg PO DAILY 09/20/17 [History] Acetaminophen [Tylenol] 650 mg PO Q6HR PRN tablet 09/27/17 [Rx] Apixaban [Eliquis] 5 mg PO BID #60 tablet 09/27/17 [Rx] Aspirin Enteric Coated [Aspirin EC] 81 mg PO DAILY tablet. 09/27/17 [Rx] Atorvastatin [Lipitor] 20 mg PO HS tablet 09/27/17 [Rx] Cholestyramine 4 gm PO QIDAC #120 packet 09/27/17 [Rx] Omeprazole [PriLOSEC] 40 mg PO BIDAC #60 capsule. 09/27/17 [Rx] Propylthiouracil 50 mg PO TID #90 tablet 09/27/17 [Rx] Venlafaxine XR (24 HR) [Effexor Xr] 150 mg PO DAILY #30 cap.er.24h 09/27/17 [Rx] Megestrol Acetate [Megace] 40 mg PO BID 10/13/17 [History] Metoprolol XL (24 HR) Succ [Toprol Xl] 75 mg PO DAILY 10/13/17 [History] OxyCODONE ER (12 HR) [OxyCONTIN] 30 mg PO Q12H PRN 10/13/17 [History] Oxycodone HCl/Acetaminophen [Percocet 5-325 mg Tablet] 1 tab PO Q6H PRN [History] 3 Allergy/AdvReac Type Severity Reaction Status Date / Time morphine Allergy Unknown Unknown Verified 09/21/17 02:00 hydrocodone [From Vicodin] Allergy Swelling Verified 09/20/17 15:38 of Lip/Tongue/Throat All Systems Review: A 10-system review of systems was performed and is negative for pertinent findings except as documented above in the HPI. - Constitutional Constitutional: weight gain - Cardiovascular Cardiovascular: as per HPI, chest pain at rest, leg edema, rapid heart rate Physical Examination Vital Signs, Last 4 Hours Temp Pulse Resp BP Pulse Ox 10/14/17 11:24 97.4 F L 105 16 127/69 95 10/14/17 11:05 16 96 General: Conversant, No Apparent Distress HEENT: Atraumatic, Normocephaly, Mucus Membranes Moist Neck: No JVD, Normal carotid pulses Cardiac: Reg Rate and Rhythm, Normal S1 and S2, No Murmur Lungs: Normal Breath Sounds, No Wheeze, Rales, Rhonchi Neuro: Alert and responsive, No focal deficits noted Abdomen: Soft, Non-Tender Skin: No rashes noted on visualized skin Musculoskeletal: No Chest Wall Tenderness Extremities: No Clubbing, No Cyanosis, Normal Pulses, Other (2+ bilateral lower extremity pitting edema. ) Results 10/14/17 05:06 10/14/17 05:06 Lab Results Active Medications Acetaminophen (Tylenol) 650 mg PO Q6HR PRN PRN Reason: Mild Pain (1-3) Stop: 04/14/18 14:15 Albuterol/Ipratropium (Duoneb) 3 ml IH [id number] ROSA Stop: 04/14/18 16:01 Last Admin: 10/14/17 11:04 Dose: 3 ml Alprazolam (Xanax) 1 mg PO TID PRN; Protocol PRN Reason: Anxiety Stop: 04/14/18 14:00 Last Admin: 10/13/17 22:20 Dose: 0.5 mg Apixaban (Eliquis) 5 mg PO BID ROSA Stop: 04/14/18 21:01 Last Admin: 10/14/17 09:33 Dose: 5 mg Aspirin (Aspirin Ec) 81 mg PO DAILY ROSA Stop: 04/15/18 09:01 Last Admin: 10/14/17 09:34 Dose: 81 mg Cholestyramine Resin (Cholestyramine) 4 gm PO QIDAC ROSA Stop: 04/14/18 16:31 Last Admin: 10/14/17 09:33 Dose: 4 gm Diltiazem HCl (Cardizem) 30 mg PO Q8HR ROSA Stop: 04/15/18 12:24 Folic Acid (Folic Acid) 2 mg PO DAILY ROSA Stop: 04/15/18 09:01 Last Admin: 10/14/17 09:46 Dose: 2 mg Furosemide (Lasix) 40 mg IVP BIDDIURETIC ROSA Stop: 04/15/18 12:31 Hydrochlorothiazide (Hydrochlorothiazide) 25 mg PO DAILY ROSA PRN Reason: Protocol Stop: 04/15/18 09:01 Last Admin: 10/14/17 09:33 Dose: 25 mg Lisinopril (Zestril) 40 mg PO DAILY ROSA Stop: 04/15/18 09:01 Last Admin: 10/14/17 09:32 Dose: 40 mg Megestrol Acetate (Megace) 40 mg PO BID ROSA Stop: 04/14/18 21:01 Last Admin: 10/14/17 09:34 Dose: 40 mg Metoprolol Succinate (Toprol Xl) 75 mg PO DAILY ROSA Stop: 04/15/18 09:01 Last Admin: 10/14/17 09:33 Dose: 75 mg Multivitamins/Calcium (Thera M Plus) 1 tab PO DAILY ROSA Stop: 04/15/18 09:01 Last Admin: 10/14/17 09:34 Dose: 1 tab Naloxone HCl (Narcan) 0.4 mg IVP Q2MIN PRN PRN Reason: Opioid Reversal Stop: 04/14/18 14:15 Nitroglycerin (Nitroglycerin) 0.4 mg SL Q5M PRN PRN Reason: Chest Pain Stop: 04/14/18 14:00 Omeprazole (Prilosec) 40 mg PO BIDAC ROSA PRN Reason: Protocol Stop: 04/14/18 16:31 Last Admin: 10/14/17 09:34 Dose: 40 mg Ondansetron HCl (Zofran) 4 mg IVP Q8HR PRN PRN Reason: Nausea And Vomiting Stop: 04/14/18 14:15 Oxycodone HCl (Oxycontin) 30 mg PO Q12H PRN PRN Reason: Severe Pain Stop: 04/14/18 14:00 Last Admin: 10/14/17 09:33 Dose: 30 mg Oxycodone/Acetaminophen (Percocet 5/325) 1 each PO Q6H PRN PRN Reason: Moderate Pain Stop: 04/14/18 14:00 Last Admin: 10/14/17 04:16 Dose: 1 each Potassium Chloride (Potassium Chloride) 20 meq PO DAILY ROSA Stop: 04/15/18 09:01 Last Admin: 10/14/17 09:34 Dose: 20 meq Pregabalin (Lyrica) 75 mg PO BID ROSA Stop: 04/14/18 21:01 Last Admin: 10/14/17 09:34 Dose: 75 mg Propylthiouracil (Propylthiouracil) 50 mg PO TID ROSA Stop: 04/14/18 15:01 Last Admin: 10/14/17 09:33 Dose: 50 mg Simvastatin (Zocor) 20 mg PO HS ROSA PRN Reason: Protocol Stop: 04/14/18 21:01 Last Admin: 10/13/17 22:20 Dose: 20 mg Venlafaxine HCl (Effexor Xr) 150 mg PO DAILY ROSA PRN Reason: Protocol Stop: 04/15/18 09:01 Last Admin: 10/14/17 09:33 Dose: 150 mg Vitamin E (Vitamin E) 1,000 unit PO DAILY ROSA Stop: 04/15/18 09:01 Last Admin: 10/14/17 09:34 Dose: 1,000 unit Laboratory Tests 10/13/17 10/13/17 10/13/17 08:34 08:34 08:34 WBC 12.3 H Hgb Plt Count Potassium Creatinine Magnesium Troponin I 0.03 B-Natriuretic Peptide 4469 H TSH 10/13/17 10/13/17 10/14/17 14:36 14:36 05:06 WBC Hgb 7.5 L Plt Count 110 L Potassium Creatinine Magnesium Troponin I 0.03 B-Natriuretic Peptide TSH 0.000 L 10/14/17 05:06 WBC Hgb Plt Count Potassium 3.4 L Creatinine 0.55 L Magnesium 1.6 Troponin I B-Natriuretic Peptide TSH - Imaging and Cardiology Chest Xray: report reviewed Echo: report reviewed Cardiac cath: report reviewed - EKG Interpretation EKG results cardiology: personally reviewed (ECG with a.fib RVR, HR 155.), other (Telemetry reviewed with average HR previous 12 hours noted to be 90, sinus rhythm. PVCs noted.) Consult Discharge Plan - Plan Referrals: Alpa Lee, [employer] [Primary Care Provider] - <Rodrigo Chin - Last Filed: 10/14/17 22:02> Date of Encounter: 10/14/17 - Attending Attestation I have personally performed a face to face evaluation on this patient. I have reviewed and agree with the care plan. History and Exam by me shows: 1. Acute on chronic diastolic heart failure due to noncompliance with dietary and sodium restictions and medications. She is responding to IV diuesis, -1400 cc with improvement in shortness of breath and lower extremity edema. 2. Persistant A fib presenting in A fib with rapid ventricular response, ventricular rates into the 160s, improved with IV diltiazem in addition to beta blockade, will change to po @ 30 mg cardiozem q 8 hours. If tolerated over several days may switch to once daily dosing for better compliance. 3. Chest pain - provoked by A fib with RVR. resolved with control of ventricular response, EKG and cardiac enzemes unremarkable, with hx CAD post CABG x 3, will order stress imaging in AM to evaluate for ischemia. Assessment and Plan Discussion w patient/family: The assessment and plan as outlined above was discussed with the patient and/or family members who expressed understanding and agreement. All questions were answered. Thank you for involving us in the care of your patient. Please call with any questions. History of Present Illness History of present illness: Ms. Mcdaniels is a 62 year old female All Systems Review: A 10-system review of systems was performed and is negative for pertinent findings except as documented above in the HPI. Results 10/14/17 05:06 10/14/17 05:06 Lab Results 10/14/17 10/14/17 10/14/17 05:06 05:06 05:06 WBC 9.6 Hgb 7.5 L Hct 23.9 L Plt Count 110 L INR 1.9 APTT 29.1 Sodium 138 Potassium 3.4 L Chloride 107 Carbon Dioxide 22 BUN 14 Creatinine 0.55 L Glucose 221 H Calcium 8.3 L Magnesium 1.6 Total Bilirubin 1.3 H AST 22 ALT 23 Alkaline Phosphatase 260 H
[2017-10-14] MEDS: Furosemide 40 MG/4 ML VIAL IVP SCH ×2 (13:49→18:37)
[2017-10-14] MEDS: ALPRAZolam 1 MG TABLET PO PRN (13:50)
--- NOTE | 2017-10-14 18:45 | Internal Med Progress Note ---
Date of Encounter: 10/14/17 Time of Encounter: 11:00 - Assessment and plan (1) Chest pain Current Visit: No Status: Acute Assessment and plan: -Patient scheduled stress test per cardiology in the morning. Qualifiers: Chest pain type: chest pain due to myocardial ischemia Ischemic chest pain type: unstable angina pectoris Qualified Code(s): I20.0 - Unstable angina (2) Atrial fibrillation with RVR Current Visit: Yes Status: Chronic Assessment and plan: -Per cardiology Cardizem drip discontinued and patient started on oral Cardizem (3) Diastolic CHF, acute on chronic Current Visit: No Status: Acute Assessment and plan: -Started on IV diuresis per cardiology (4) HTN (hypertension) Current Visit: Yes Status: Chronic Assessment and plan: -Continue home medications Qualifiers: Hypertension type: essential hypertension Qualified Code(s): I10 - Essential (primary) hypertension (5) Diabetes Current Visit: No Status: Chronic Assessment and plan: -Continue home medications Qualifiers: Diabetes mellitus type: type 2 Diabetes mellitus complication status: with unspecified complications Diabetes mellitus custodial insulin use: without custodial use Qualified Code(s): E11.8 - Type 2 diabetes mellitus with unspecified complications (6) Hyperthyroidism Current Visit: Yes Status: Chronic Assessment and plan: -Continue home medications (7) DVT prophylaxis Current Visit: Yes Status: Acute - Subjective Interval history: No acute events overnight - Constitutional Vitals: Temp Pulse Resp BP Pulse Ox 98.1 F 100 16 101/60 94 10/14/17 15:29 10/14/17 15:29 10/14/17 15:29 10/14/17 15:29 10/14/17 15:29 General appearance: Present: cachectic, cooperative, A&O X 3, pleasant, no acute distress, underweight, answers questions appropriately - Respiratory Respiratory exam: Present: CTAB. Absent: accessory muscle use, rales, rhonchi, wheezes - Cardiovascular Cardiovascular exam: Present: RRR, +S1, +S2. Absent: diastolic murmur, gallop, rubs, systolic murmur Internal Medicine: Result - Labs CBC & Chem 7: 10/14/17 05:06 10/14/17 05:06 Labs: Short CBC 10/14/17 Range/Units 05:06 WBC 9.6 (4.3-11.1) K/mcL Hgb 7.5 L (11.5-15.4) g/dL Hct 23.9 L (35.3-44.9) % Plt Count 110 L (140-400) K/mcL Neutrophils # 8.3 (1.6-8.9) K/mcL BMP 10/14/17 05:06 Sodium 138 Potassium 3.4 L Chloride 107 Carbon Dioxide 22 BUN 14 Creatinine 0.55 L Glucose 221 H Calcium 8.3 L Liver Function 10/14/17 Range/Units 05:06 Total Bilirubin 1.3 H (0.2-1.2) mg/dL AST 22 (5-34) Units/L ALT 23 (0-55) Units/L Alkaline Phosphatase 260 H (38-126) Units/L Albumin 2.2 L (3.5-5.0) g/dL - ABG Interpretation ABG results: PT/INR, D-dimer PT 21.2 Seconds (9.4-12.1) H 10/14/17 05:06 Consult Discharge Plan - Plan Referrals: Alpa Lee, [facility] [Primary Care Provider] -
[2017-10-15 03:13] LABS: Basophils % 0.2 %; Eosinophils # 0.1 K/mcL (0.0-0.6); Eosinophils % 1.2 %; Hematocrit 24.6 % (35.3-44.9); Hemoglobin 7.4 g/dL (11.5-15.4); Immature Granulocytes % 0.2 % (0-4); Immature Platelets 10.2 % (1.1-6.1); Lymphocytes # 1.1 K/mcL (0.6-4.6); Lymphocytes % 18.7 %; Mean Corpuscular HGB Conc 30.1 g/dL (31.6-35.5); Mean Corpuscular Hemoglobin 25.2 pg (28.0-33.3); Mean Corpuscular Volume 83.7 fL (83.0-100.0); Mean Platelet Volume 12.3 fL (9.4-12.4); Monocytes # 0.3 K/mcL (0.0-1.3); Neutrophils # 4.4 K/mcL (1.6-8.9); Platelet Count 115 K/mcL (140-400); Red Blood Count 2.94 M/mcL (3.82-4.97); Red Cell Distribution Width 19.2 % (11.5-14.5); Segmented Neutrophils % 74.7 %
[2017-10-15] MEDS: Ipratropium/Albuterol Neb 3 ML IH SCH ×4 (03:16→21:50)
[2017-10-15 03:29] LABS: Alanine Aminotransferase 19 Units/L (0-55); Albumin 2.1 g/dL (3.5-5.0); Albumin/Globulin Ratio 0.6 (1.1-2.2); Alkaline Phosphatase 216 Units/L (38-126); Aspartate Amino Transferase 17 Units/L (5-34); BUN/Creatinine Ratio 47 (6-26); Bilirubin,Total 1.2 mg/dL (0.2-1.2); Blood Urea Nitrogen 20 mg/dL (7-20); Calcium 8.6 mg/dL (8.6-10.8); Carbon Dioxide 27 mEq/L (19-29); Chloride 108 mEq/L (98-109); Globulin 3.4 g/dL (2.4-3.5); Glucose 82 mg/dL (70-99); Osmolality,Calculated 290 (280-300); Potassium 3.6 mEq/L (3.5-4.5); Sodium 139 mEq/L (136-145); Total Protein 5.5 g/dL (6.0-8.3); eGFR For African Americans > 60 (> 60); eGFR For Non-African Americans > 60 (> 60)
[2017-10-15] MEDS: *HR* OxyCODONE/APAP 5/325 TABLET PO PRN ×3 (05:11→18:26)
[2017-10-15] MEDS ORDERED: Regadenoson 0.4 MG/5 ML SYRINGE IVP ONE (06:18)
[2017-10-15] MEDS: *HR* OxyCODONE ER (12 HR) 10 MG TABLET PO PRN (09:46)
[2017-10-15] MEDS: Cholestyramine 4 GM POWD.PACK PO SCH ×4 (09:46→21:18)
[2017-10-15] MEDS: Folic Acid 1 MG TABLET PO SCH (09:47)
[2017-10-15] MEDS: Furosemide 40 MG/4 ML VIAL IVP SCH ×2 (09:47→16:16)
[2017-10-15] MEDS: hydroCHLOROthiazide 25 MG TABLET PO SCH (09:48)
[2017-10-15] MEDS: Multivit/Ca/Min/Fe/FA 1 TAB TABLET PO SCH (09:48)
[2017-10-15] MEDS: Pregabalin 75 MG CAPSULE PO SCH ×2 (09:48→21:18)
[2017-10-15] MEDS: Metoprolol XL (24 HR) Succ 50 MG TAB.ER.24H PO SCH (09:48)
[2017-10-15] MEDS: Lisinopril 20 MG TABLET PO SCH (09:48)
[2017-10-15] MEDS: APIXABAN 5 MG TABLET PO SCH ×2 (09:48→21:18)
--- NOTE | 2017-10-15 10:04 | Cardiology Progress Note ---
Date of Encounter: 10/15/17 Time of Encounter: 09:45 Assessment and Plan (1) Diastolic congestive heart failure, NYHA class 3 Current Visit: No Status: Chronic Per cardiology: -Known diastolic CHF. Of note, patient no-showed to her hospital follow up appointment in August. -Last TTE with LVEf 60%, indeterminate diastolic function, mild AR, mild MR, mild TR, mild pulmonary hypertension. -BNP on admisison 4469. -CHest x-ray with improved effusions and lung base consolidations. -1+ bilateral lower extremity pitting edema. -On lasix 40mg IV BID, currently net negative 931ml. -Weight today 46.8kg. Weight at PCP 08/2017 54kg. -Continue IV lasix. -Strict i/os, fluid restriction, daily weights. -CHF educated re-inforced. -Will continue to monitor. Qualifiers: Congestive heart failure chronicity: acute on chronic Qualified Code(s): I50.33 - Acute on chronic diastolic (congestive) heart failure (2) Atrial fibrillation with RVR Current Visit: Yes Status: Chronic Per cardiology: -Known Paroxysmal atrial fibrillation, was RVR on admission. -Currently atrial fibrillation with average HR 79. -On beta delfino and short acting cardizem. -ON eliquis for anticoagulation. -Of note, TSH 0-management per primary service. -Will attempt to change short acting cardizem to long acting if BP will tolerate. -Will continue to monitor. (3) Chest pressure Current Visit: Yes Status: Acute Per cardiology: -Reports chest pressure at rest, while in atrial fibrillation with RVR. -Denies current chest pressure. -ECG with no acute ischemic changes. -Troponins negative x2. -Stress with perfusion imaging negative for ischemia. -Suspect chest pressure related to atrial fibrillation with RVR. (4) CAD (coronary artery disease) Current Visit: No Status: Chronic Per cardiology: -KNown CAD s/p CABG. -Last [facility] 12/2015 with 100% proximal LAD stenosis, circumflex angiographically free of disease, 80% proximal RCA stenosis and had collateral which feed from left to right, 100% distal RCA, KOTHARI to LAD patent, SVG to PDA occluded. -Stress with perfusion imaging negative for ischemia. Fixed inferior defect noted with known occluded SVG to PDA. -ON asa, statin, beta delfino. -HAd chest pain on admission. -Last TTE as above. -Will continue to monitor. Qualifiers: Coronary Disease-Associated Artery/Lesion type: unspecified vessel or lesion type [place] vs. transplanted heart: [place] heart Associated angina: angina presence unspecified Qualified Code(s): I25.10 - Atherosclerotic heart disease of [place] coronary artery without angina pectoris Discussion w patient/family: The assessment and plan as outlined above was discussed with the patient who expressed understanding and agreement. All questions were answered. Thank you for involving us in the care of your patient. Please call with any questions. Discussed and reviewed with . Subjective Principal diagnosis: a.fib RVR, diastolic CHF Interval history: Patient states breathing is imrpoved today. Denies chest pain overnight. Objective Vital Signs, Last 4 Hours Temp Pulse Resp BP Pulse Ox 10/15/17 07:21 97.6 F 85 16 97/57 96 General: Conversant, No Apparent Distress HEENT: Atraumatic, Normocephaly, Mucus Membranes Moist Neck: No JVD, Normal carotid pulses Cardiac: Normal S1 and S2, No Murmur, Other (Irregularly irregular) Lungs: Normal Breath Sounds, No Wheeze, Rales, Rhonchi Neuro: Alert and responsive, No focal deficits noted Abdomen: Soft, Non-Tender Skin: No rashes noted on visualized skin Musculoskeletal: No Chest Wall Tenderness Extremities: No Clubbing, No Cyanosis, Normal Pulses, Other (1+ bilateral lower extremity pitting edema. ) Results 10/15/17 02:38 10/15/17 02:38 Lab Results Current Medications Acetaminophen (Tylenol) 650 mg PO Q6HR PRN PRN Reason: Mild Pain (1-3) Stop: 04/14/18 14:15 Albuterol/Ipratropium (Duoneb) 3 ml IH [id number] [facility] Stop: 04/14/18 16:01 Last Admin: 10/15/17 03:16 Dose: 3 ml Alprazolam (Xanax) 1 mg PO TID PRN; Protocol PRN Reason: Anxiety Stop: 04/14/18 14:00 Last Admin: 10/14/17 13:50 Dose: 1 mg Apixaban (Eliquis) 5 mg PO BID [facility] Stop: 04/14/18 21:01 Last Admin: 10/15/17 09:48 Dose: 5 mg Aspirin (Aspirin Ec) 81 mg PO DAILY [facility] Stop: 04/15/18 09:01 Last Admin: 10/14/17 09:34 Dose: 81 mg Cholestyramine Resin (Cholestyramine) 4 gm PO QIDAC [facility] Stop: 04/14/18 16:31 Last Admin: 10/15/17 09:46 Dose: 4 gm Diltiazem HCl (Cardizem) 30 mg PO Q8H ROSA Stop: 04/15/18 21:01 Last Admin: 10/15/17 05:11 Dose: 30 mg Folic Acid (Folic Acid) 2 mg PO DAILY ROSA Stop: 04/15/18 09:01 Last Admin: 10/15/17 09:47 Dose: 2 mg Furosemide (Lasix) 40 mg IVP BIDDIURETIC [facility] Stop: 04/15/18 12:31 Last Admin: 10/15/17 09:47 Dose: 40 mg Hydrochlorothiazide (Hydrochlorothiazide) 25 mg PO DAILY [facility] PRN Reason: Protocol Stop: 04/15/18 09:01 Last Admin: 10/15/17 09:48 Dose: 25 mg Lisinopril (Zestril) 40 mg PO DAILY [facility] Stop: 04/15/18 09:01 Last Admin: 10/15/17 09:48 Dose: 40 mg Megestrol Acetate (Megace) 40 mg PO BID [facility] Stop: 04/14/18 21:01 Last Admin: 10/15/17 09:49 Dose: 40 mg Metoprolol Succinate (Toprol Xl) 75 mg PO DAILY [facility] Stop: 04/15/18 09:01 Last Admin: 10/15/17 09:48 Dose: 75 mg Multivitamins/Calcium (Thera M Plus) 1 tab PO DAILY ROSA Stop: 04/15/18 09:01 Last Admin: 10/15/17 09:48 Dose: 1 tab Naloxone HCl (Narcan) 0.4 mg IVP Q2MIN PRN PRN Reason: Opioid Reversal Stop: 04/14/18 14:15 Omeprazole (Prilosec) 40 mg PO BIDAC ROSA PRN Reason: Protocol Stop: 04/14/18 16:31 Last Admin: 10/15/17 09:48 Dose: 40 mg Ondansetron HCl (Zofran) 4 mg IVP Q8HR PRN PRN Reason: Nausea And Vomiting Stop: 04/14/18 14:15 Oxycodone HCl (Oxycontin) 30 mg PO Q12H PRN PRN Reason: Severe Pain Stop: 04/14/18 14:00 Last Admin: 10/15/17 09:46 Dose: 30 mg Oxycodone/Acetaminophen (Percocet 5/325) 1 each PO Q6H PRN PRN Reason: Moderate Pain Stop: 04/14/18 14:00 Last Admin: 10/15/17 05:11 Dose: 1 each Potassium Chloride (Potassium Chloride) 20 meq PO DAILY [facility]A Stop: 04/15/18 09:01 Last Admin: 10/15/17 09:48 Dose: 20 meq Pregabalin (Lyrica) 75 mg PO BID [facility] Stop: 04/14/18 21:01 Last Admin: 10/15/17 09:48 Dose: 75 mg Propylthiouracil (Propylthiouracil) 50 mg PO TID [facility]A Stop: 04/14/18 15:01 Last Admin: 10/15/17 09:49 Dose: 50 mg Simvastatin (Zocor) 20 mg PO HS ROSA PRN Reason: Protocol Stop: 04/14/18 21:01 Last Admin: 10/14/17 22:32 Dose: 20 mg Venlafaxine HCl (Effexor Xr) 150 mg PO DAILY [facility]A PRN Reason: Protocol Stop: 04/15/18 09:01 Last Admin: 10/14/17 09:33 Dose: 150 mg Vitamin E (Vitamin E) 1,000 unit PO DAILY [facility] Stop: 04/15/18 09:01 Last Admin: 10/15/17 09:54 Dose: 1,000 unit Laboratory Tests 10/15/17 10/15/17 02:38 02:38 Hgb 7.4 L Potassium 3.6 Creatinine 0.43 L - Imaging and Cardiology Chest Xray: report reviewed Stress Test: report reviewed Echo: report reviewed Cardiac cath: report reviewed - EKG Interpretation EKG results cardiology: other (Telemetry reviewed with average HR previous 12 hours noted to be 79, atrial fibrillation.) Consult Discharge Plan - Plan Referrals: Alpa Lee, RESIDENT[employer]PLIANCE REPAIR TECHNICIAN [Primary Care Provider] -
--- NOTE | 2017-10-15 11:21 | Pre-Sedation Evaluation ---
Pre-sedation evaluation - Pre-sedation checklist Date of procedure: 10/15/17 Procedure: C Recent Vitals: Last Vital Signs Temp 97.6 F 10/15/17 07:21 Pulse 85 10/15/17 07:21 Resp 16 10/15/17 10:59 BP 97/57 10/15/17 07:21 Pulse Ox 96 10/15/17 10:59 H&P (including ROS) documented in medical record: Yes Previous reaction to sedatives/anesthetics: No Dietary Status: NPO after Midnight ASA Classification *see protocol: CLASS II-Mild systemic disease Plan of Care: Pt appropriate candidate for procedure/moderate/conscious sedation , Risks/benefits of procedure/sedation discussed w/ patient/family
[2017-10-15] MEDS: Venlafaxine XR (24 HR) 150 MG CAP.ER.24H PO SCH (11:24)
[2017-10-15] MEDS: Aspirin Enteric Coated 81 MG Tablet PO SCH (11:24)
[2017-10-15] MEDS: ALPRAZolam 1 MG TABLET PO PRN (18:26)
--- NOTE | 2017-10-15 19:32 | Internal Med Progress Note ---
Date of Encounter: 10/15/17 Time of Encounter: 11:00 - Assessment and plan (1) Chest pain Current Visit: No Status: Acute Assessment and plan: -Patient scheduled for [facility] per cardiology in the morning. Qualifiers: Chest pain type: chest pain due to myocardial ischemia Ischemic chest pain type: unstable angina pectoris Qualified Code(s): I20.0 - Unstable angina (2) Atrial fibrillation with RVR Current Visit: Yes Status: Chronic Assessment and plan: -Per cardiology Cardizem drip discontinued and patient started on oral Cardizem (3) Diastolic CHF, acute on chronic Current Visit: No Status: Acute Assessment and plan: -Started on IV diuresis per cardiology (4) HTN (hypertension) Current Visit: Yes Status: Chronic Assessment and plan: -Continue home medications Qualifiers: Hypertension type: essential hypertension Qualified Code(s): I10 - Essential (primary) hypertension (5) Diabetes Current Visit: No Status: Chronic Assessment and plan: -Continue home medications Qualifiers: Diabetes mellitus type: type 2 Diabetes mellitus complication status: with unspecified complications Diabetes mellitus senior care insulin use: without terminal system operator use Qualified Code(s): E11.8 - Type 2 diabetes mellitus with unspecified complications (6) Hyperthyroidism Current Visit: Yes Status: Chronic Assessment and plan: -Continue home medications (7) DVT prophylaxis Current Visit: Yes Status: Acute Assessment and plan: On Eliquis - Subjective Interval history: No acute events overnight - Constitutional Vitals: Temp Pulse Resp BP Pulse Ox 97.9 F 56 16 106/52 99 10/15/17 15:22 10/15/17 15:22 10/15/17 16:02 10/15/17 15:22 10/15/17 16:02 General appearance: Present: cachectic, cooperative, A&O X 3, pleasant, no acute distress, underweight, answers questions appropriately - Respiratory Respiratory exam: Present: CTAB. Absent: accessory muscle use, rales, rhonchi, wheezes - Cardiovascular Cardiovascular exam: Present: RRR, +S1, +S2. Absent: diastolic murmur, gallop, rubs, systolic murmur Internal Medicine: Result - Labs CBC & Chem 7: 10/15/17 02:38 10/15/17 02:38 Labs: Short CBC 10/15/17 Range/Units 02:38 WBC 5.8 (4.3-11.1) K/mcL Hgb 7.4 L (11.5-15.4) g/dL Hct 24.6 L (35.3-44.9) % Plt Count 115 L (140-400) K/mcL Neutrophils # 4.4 (1.6-8.9) K/mcL BMP 10/15/17 02:38 Sodium 139 Potassium 3.6 Chloride 108 Carbon Dioxide 27 BUN 20 Creatinine 0.43 L Glucose 82 Calcium 8.6 Liver Function 10/15/17 Range/Units 02:38 Total Bilirubin 1.2 (0.2-1.2) mg/dL AST 17 (5-34) Units/L ALT 19 (0-55) Units/L Alkaline Phosphatase 216 H (38-126) Units/L Albumin 2.1 L (3.5-5.0) g/dL - ABG Interpretation ABG results: PT/INR, D-dimer PT 21.2 Seconds (9.4-12.1) H 10/14/17 05:06 Consult Discharge Plan - Plan Referrals: Alpa Lee CNP [Primary Care Provider] - Dwayne Noel MD [Partnered Physician] - 10/19/17 11:30 am
--- NOTE | 2017-10-15 19:54 | Electrocardiograph Report ---
[address] [place], [place] [address] Test Date: 2017-10-13 Pat Name: Didier Mcdaniels Department: 104 Room: 2NE19 Gender: F [employer] Machine: : [id number] Requested By: Maciej Pradhan Order Number: [id number] Reading MD: Arturo Marie MD Measurements Intervals [place] Rate: 155 P: NC: 0 QRS: 31 QRSD: 83 T: 0 QT: 271 QTc: 358 Interpretive Statements ATRIAL FIBRILLATION WITH RAPID VENTRICULAR RESPONSE MINIMAL VOLTAGE CRITERIA FOR LVH, CONSIDER NORMAL VARIANT LATERAL ISCHEMIA Electronically Signed On 10-15-2017 19:53:01 EST by Arturo Marie MD
--- NOTE | 2017-10-16 02:02 | Event Note ---
Date of Encounter: 10/16/17 Time of Encounter: 01:00 Informed by RN and patient was found on the floor. Patient was complaining of left wrist pain. No obvious head injury noted. Stat CT of the head and left wrist x-ray were done. Left wrist x-ray shows fracture of the distal radius which is not displaced and fracture of the ulnar styloid process. CT of the head does not show any acute intracranial abnormality. On examination patient is drowsy, but easily arousable. Not in any distress. She is cachectic and seems chronically ill. She seems older than stated age. Patient does complain of pain in the left wrist. Worse with movement. On examination there is mild swelling over her left wrist dorsal aspect. Left wrist splint has been placed. Orthopedics consult in the morning. Percocet as needed for pain. Continue fall precautions. Patient is at high risk for fall. Patient is on anticoagulation with Eliquis and may also be possible bleed risk.
[2017-10-16] MEDS ORDERED: *HR* Morphine 2 MG/ML SYRINGE ONE (03:08)
[2017-10-16] MEDS: Ipratropium/Albuterol Neb 3 ML IH SCH ×4 (03:23→22:12)
[2017-10-16] MEDS ORDERED: *HR* Morphine 2 MG/ML SYRINGE IVP ONE (03:36)
--- NOTE | 2017-10-16 04:11 | Event Note ---
Date of Encounter: 10/16/17 Time of Encounter: 03:00 Procedure Note: Splint Indication: Closed left non-displaced intra-articular distal radius fracture with associated non-displaced ulnar styloid fracture Type: [place] Splint, OrthoGlass Skin: No abrasions or lacerations underneath splint Procedure: Patient was given adequate pain control and placed her left arm in 90 degrees of flexion at the elbow and 90 degrees external rotation/abduction at the shoulder. Applied of 3 inch webril from mid-palmar crease to distal brachium. 3-inch OrthoGlass was cut to length, applied water, rolled out and applied to left arm in appropriate fashion. 3 inch tamanna wrap bandage was then wrapped distal to proximal. 90 degrees of flexion at the elbow was maintained and slight extension at the wrist was molded. Neurovascular status was tested after the splint. Radial pulse 2+, median, ulnar, radial, and ain nerves intact. Active movement of all digits extending outside the splint. No cyanosis and appropriate flexion at MCP with no inpingement. Left forearm was placed on pillow across her abdomen for comfort. She tolerated the procedure well with no complications. Dr. Miles was present for the entire procedure. Post splint application XR shows anatomic alignment.
[2017-10-16] MEDS: *HR* OxyCODONE/APAP 5/325 TABLET PO PRN ×3 (05:01→18:05)
[2017-10-16 07:48] LABS: Hematocrit 24.5 % (35.3-44.9); Hemoglobin 7.5 g/dL (11.5-15.4); Mean Corpuscular HGB Conc 30.6 g/dL (31.6-35.5); Mean Corpuscular Hemoglobin 25.1 pg (28.0-33.3); Mean Corpuscular Volume 81.9 fL (83.0-100.0); Mean Platelet Volume 12.2 fL (9.4-12.4); Platelet Count 123 K/mcL (140-400); Red Blood Count 2.99 M/mcL (3.82-4.97); Segmented Neutrophils % 73.4 %
[2017-10-16 07:49] LABS: Basophils % 0.2 %; Eosinophils # 0.2 K/mcL (0.0-0.6); Eosinophils % 2.6 %; Immature Granulocytes % 0.5 % (0-4); Lymphocytes % 17.5 %; Monocytes # 0.3 K/mcL (0.0-1.3); Monocytes % 5.8 %; Neutrophils # 4.3 K/mcL (1.6-8.9)
[2017-10-16 08:09] LABS: Alanine Aminotransferase 17 Units/L (0-55); Albumin 2.1 g/dL (3.5-5.0); Albumin/Globulin Ratio 0.6 (1.1-2.2); Alkaline Phosphatase 236 Units/L (38-126); Aspartate Amino Transferase 21 Units/L (5-34); BUN/Creatinine Ratio 31 (6-26); Bilirubin,Total 0.9 mg/dL (0.2-1.2); Blood Urea Nitrogen 14 mg/dL (7-20); Calcium 8.2 mg/dL (8.6-10.8); Carbon Dioxide 26 mEq/L (19-29); Chloride 107 mEq/L (98-109); Globulin 3.7 g/dL (2.4-3.5); Glucose 86 mg/dL (70-99); Osmolality,Calculated 286 (280-300); Sodium 138 mEq/L (136-145); Total Protein 5.8 g/dL (6.0-8.3); eGFR For African Americans > 60 (> 60); eGFR For Non-African Americans > 60 (> 60)
[2017-10-16] MEDS: Metoprolol XL (24 HR) Succ 50 MG TAB.ER.24H PO SCH (09:32)
[2017-10-16] MEDS: Multivit/Ca/Min/Fe/FA 1 TAB TABLET PO SCH (09:33)
[2017-10-16] MEDS: Venlafaxine XR (24 HR) 150 MG CAP.ER.24H PO SCH (09:33)
[2017-10-16] MEDS: Aspirin Enteric Coated 81 MG Tablet PO SCH (09:33)
[2017-10-16] MEDS: Folic Acid 1 MG TABLET PO SCH (09:33)
[2017-10-16] MEDS: hydroCHLOROthiazide 25 MG TABLET PO SCH (09:33)
[2017-10-16] MEDS: Diltiazem CD (24hr) 120 MG CAPSULE PO SCH (09:33)
[2017-10-16] MEDS: Pregabalin 75 MG CAPSULE PO SCH ×2 (09:34→21:10)
[2017-10-16] MEDS: Furosemide 40 MG/4 ML VIAL IVP SCH (09:34)
[2017-10-16] MEDS: Cholestyramine 4 GM POWD.PACK PO SCH ×4 (09:34→21:11)
[2017-10-16] MEDS: Lisinopril 20 MG TABLET PO SCH (09:34)
[2017-10-16] MEDS: APIXABAN 5 MG TABLET PO SCH ×2 (09:34→21:11)
--- NOTE | 2017-10-16 10:10 | Cardiology Progress Note ---
Date of Encounter: 10/16/17 Time of Encounter: 08:30 Assessment and Plan (1) Diastolic congestive heart failure, NYHA class 3 Current Visit: No Status: Chronic Per cardiology: -Known diastolic CHF. Of note, patient no-showed to her hospital follow up appointment in August. -Last TTE with LVEf 60%, indeterminate diastolic function, mild AR, mild MR, mild TR, mild pulmonary hypertension. -Euvolemic on exam today. -On lasix 40mg IV BID, currently net negative 731ml. -Weight now 46.8kg. Weight at PCP 08/2017 54kg. -Will switch lasix to po. -Strict i/os, fluid restriction, daily weights. -CHF educated re-inforced. I spent 10 minutes reviewing CHF education with patient and importance of close cardiology follow up. Patient states understanding. -Cardiology will sign off and will follow in outpatient setting. Follow up set. Qualifiers: Congestive heart failure chronicity: acute on chronic Qualified Code(s): I50.33 - Acute on chronic diastolic (congestive) heart failure (2) Atrial fibrillation with RVR Current Visit: Yes Status: Chronic Per cardiology: -Known Paroxysmal atrial fibrillation, was RVR on admission. -Currently SR with average HR previous 12 hours noted to be 61. -On beta delfino and cardizem. -ON eliquis for anticoagulation. -Of note, TSH 0-management per primary service. -Will continue to monitor in outpatient setting. (3) Chest pressure Current Visit: Yes Status: Acute Per cardiology: -Reports chest pressure at rest, while in atrial fibrillation with RVR. -Denies current chest pressure. -ECG with no acute ischemic changes. -Troponins negative x2. -Stress with perfusion imaging negative for ischemia. -Suspect chest pressure related to atrial fibrillation with RVR. (4) CAD (coronary artery disease) Current Visit: No Status: Chronic Per cardiology: -KNown CAD s/p CABG. -Last [facility] 12/2015 with 100% proximal LAD stenosis, circumflex angiographically free of disease, 80% proximal RCA stenosis and had collateral which feed from left to right, 100% distal RCA, KOTHARI to LAD patent, SVG to PDA occluded. -Stress with perfusion imaging negative for ischemia. Fixed inferior defect noted with known occluded SVG to PDA. -ON asa, statin, beta delfino. -HAd chest pain on admission. -Last TTE as above. -Will continue to monitor in outpatient setting. Qualifiers: Coronary Disease-Associated Artery/Lesion type: unspecified vessel or lesion type [place] vs. transplanted heart: [place] heart Associated angina: angina presence unspecified Qualified Code(s): I25.10 - Atherosclerotic heart disease of [place] coronary artery without angina pectoris Discussion w patient/family: The assessment and plan as outlined above was discussed with the patient who expressed understanding and agreement. All questions were answered. Thank you for involving us in the care of your patient. Please call with any questions. Discussed and reviewed with . Subjective Principal diagnosis: a.fib RVR, diastolic CHF Interval history: Patient states breathing is imrpoved today. Denies chest pain overnight. Patient states edema improved today. Of note, patient fell last night and is wearing orthocast to left arm. Objective Vital Signs Temperature 97.8 F 10/15/17 20:29 Pulse Rate 57 10/15/17 20:29 Respiratory Rate 16 10/16/17 03:25 Blood Pressure 106/52 10/15/17 20:29 O2 Sat by Pulse Oximetry 98 10/16/17 03:25 Oxygen Delivery Oxygen Delivery Room Air General: Conversant, No Apparent Distress HEENT: Atraumatic, Normocephaly, Mucus Membranes Moist Neck: No JVD, Normal carotid pulses Cardiac: Reg Rate and Rhythm, Normal S1 and S2, No Murmur Lungs: Other (Lung sounds diminished throughout) Neuro: Alert and responsive, No focal deficits noted Abdomen: Soft, Non-Tender Skin: No rashes noted on visualized skin Musculoskeletal: No Chest Wall Tenderness Extremities: No Clubbing, No Cyanosis, No Edema, Normal Pulses Results 10/16/17 06:53 10/16/17 06:53 Lab Results Impressions Head CT 10/16/17 00:12 IMPRESSION: No acute intracranial abnormality. D/ / Mitchel German MD / Mitchel German MD Interpreting Provider: Mitchel German MD Wrist X-Ray 10/16/17 00:16 IMPRESSION: Acute fractures of the distal radius and ulnar styloid. D/ / Mitchel German MD / Mitchel German MD Interpreting Provider: Mitchel German MD Wrist X-Ray 10/16/17 03:21 IMPRESSION: Status post splinting of the distal radial fracture and ulnar styloid fracture. D/ / Timmy Dahl / Timmy Dahl Interpreting Provider: Timmy Dahl Active Medications Acetaminophen (Tylenol) 650 mg PO Q6HR PRN PRN Reason: Mild Pain (1-3) Stop: 04/14/18 14:15 Albuterol/Ipratropium (Duoneb) 3 ml IH [id number] ROSA Stop: 04/14/18 16:01 Last Admin: 10/16/17 03:23 Dose: 3 ml Alprazolam (Xanax) 1 mg PO TID PRN; Protocol PRN Reason: Anxiety Stop: 04/14/18 14:00 Last Admin: 10/15/17 18:26 Dose: 1 mg Apixaban (Eliquis) 5 mg PO BID ROSA Stop: 04/14/18 21:01 Last Admin: 10/16/17 09:34 Dose: 5 mg Aspirin (Aspirin Ec) 81 mg PO DAILY ROSA Stop: 04/15/18 09:01 Last Admin: 10/16/17 09:33 Dose: 81 mg Cholestyramine Resin (Cholestyramine) 4 gm PO QIDAC ORSA Stop: 04/14/18 16:31 Last Admin: 10/16/17 09:34 Dose: 4 gm Diltiazem HCl (Cardizem Cd) 120 mg PO DAILY ROSA Stop: 04/17/18 09:01 Last Admin: 10/16/17 09:33 Dose: 120 mg Folic Acid (Folic Acid) 2 mg PO DAILY ROSA Stop: 04/15/18 09:01 Last Admin: 10/16/17 09:33 Dose: 2 mg Furosemide (Lasix) 40 mg IVP BIDDIURETIC ROSA Stop: 04/15/18 12:31 Last Admin: 10/16/17 09:34 Dose: 40 mg Hydrochlorothiazide (Hydrochlorothiazide) 25 mg PO DAILY ROSA PRN Reason: Protocol Stop: 04/15/18 09:01 Last Admin: 10/16/17 09:33 Dose: 25 mg Lisinopril (Zestril) 20 mg PO DAILY ROSA PRN Reason: Protocol Stop: 04/17/18 09:01 Last Admin: 10/16/17 09:34 Dose: 20 mg Megestrol Acetate (Megace) 40 mg PO BID ROSA Stop: 04/14/18 21:01 Last Admin: 10/16/17 09:33 Dose: 40 mg Metoprolol Succinate (Toprol Xl) 75 mg PO DAILY ROSA Stop: 04/15/18 09:01 Last Admin: 10/16/17 09:32 Dose: 75 mg Multivitamins/Calcium (Thera M Plus) 1 tab PO DAILY ROSA Stop: 04/15/18 09:01 Last Admin: 10/16/17 09:33 Dose: 1 tab Naloxone HCl (Narcan) 0.4 mg IVP Q2MIN PRN PRN Reason: Opioid Reversal Stop: 04/14/18 14:15 Omeprazole (Prilosec) 40 mg PO BIDAC ROSA PRN Reason: Protocol Stop: 04/14/18 16:31 Last Admin: 10/16/17 09:34 Dose: 40 mg Ondansetron HCl (Zofran) 4 mg IVP Q8HR PRN PRN Reason: Nausea And Vomiting Stop: 04/14/18 14:15 Oxycodone/Acetaminophen (Percocet 5/325) 1 each PO Q6H PRN PRN Reason: Moderate Pain Stop: 04/14/18 14:00 Last Admin: 10/16/17 05:01 Dose: 1 each Potassium Chloride (Potassium Chloride) 20 meq PO DAILY ROSA Stop: 04/15/18 09:01 Last Admin: 10/16/17 09:35 Dose: 20 meq Pregabalin (Lyrica) 75 mg PO BID ROSA Stop: 04/14/18 21:01 Last Admin: 10/16/17 09:34 Dose: 75 mg Propylthiouracil (Propylthiouracil) 50 mg PO TID [facility] Stop: 04/14/18 15:01 Last Admin: 10/16/17 09:34 Dose: 50 mg Simvastatin (Zocor) 20 mg PO HS [facility] PRN Reason: Protocol Stop: 04/14/18 21:01 Last Admin: 10/15/17 21:18 Dose: 20 mg Venlafaxine HCl (Effexor Xr) 150 mg PO DAILY [facility] PRN Reason: Protocol Stop: 04/15/18 09:01 Last Admin: 10/16/17 09:33 Dose: 150 mg Vitamin E (Vitamin E) 1,000 unit PO DAILY ROSA Stop: 04/15/18 09:01 Last Admin: 10/15/17 09:54 Dose: 1,000 unit Laboratory Tests 10/16/17 10/16/17 06:53 06:53 Hgb 7.5 L Creatinine 0.45 L - Imaging and Cardiology Chest Xray: report reviewed Stress Test: report reviewed Echo: report reviewed Cardiac cath: report reviewed - EKG Interpretation EKG results cardiology: other (Telemetry reviewed with average HR previous 12 hours noted to be 61, SR. PVCs and PACs noted.) Consult Discharge Plan - Plan Referrals: Alpa Lee CNP [Primary Care Provider] - Dwayne Noel MD [Partnered Physician] - 10/19/17 11:30 am
--- NOTE | 2017-10-16 15:12 | Internal Med Progress Note ---
Date of Encounter: 10/16/17 Time of Encounter: 10:45 - Assessment and plan (1) Chest pain Current Visit: Yes Status: Acute Assessment and plan: Chest pain has improved. Stress test was negative for ischemia. Cardiology recommends no further evaluation at this time. Chest pressure could be related to atrial fibrillation with RVR. Qualifiers: Chest pain type: other chest pain Qualified Code(s): R07.89 - Other chest pain; R07.8 - Other chest pain (2) Atrial fibrillation with RVR Current Visit: Yes Status: Chronic Assessment and plan: Patient converted to sinus rhythm. Heart rate well-controlled. On anticoagulation with Eliquis (3) Diabetes Current Visit: Yes Status: Chronic Assessment and plan: Controlled. Qualifiers: Diabetes mellitus type: type 2 Diabetes mellitus complication status: with unspecified complications Diabetes mellitus prison insulin use: without predatory animal exterminator use Qualified Code(s): E11.8 - Type 2 diabetes mellitus with unspecified complications (4) Diastolic CHF, acute on chronic Current Visit: Yes Status: Acute Assessment and plan: Improved with IV diuretics. Is being transitioned to oral diuretics. Renal function remained stable. (5) DVT prophylaxis Current Visit: No Status: Acute Assessment and plan: on Eliquis (6) HTN (hypertension) Current Visit: Yes Status: Chronic Assessment and plan: Well-controlled Qualifiers: Hypertension type: essential hypertension Qualified Code(s): I10 - Essential (primary) hypertension (7) Hyperthyroidism Current Visit: Yes Status: Chronic Assessment and plan: Continue propylthiouracil. Patient is also on metoprolol. (8) Fracture of left radius and ulna Current Visit: Yes Status: Acute Assessment and plan: Left wrist and forearm splinted. Orthopedics consulted. We will follow recommendations. Pain control. Physical therapy. Qualifiers: Encounter type: initial encounter Fracture type: closed Qualified Code(s) : S52.92XA - Unspecified fracture of left forearm, initial encounter for closed fracture; S52.202A - Unspecified fracture of shaft of left ulna, initial encounter for closed fracture; S52.202A - Unspecified fracture of shaft of left ulna, initial encounter for closed fracture - Subjective Interval history: Patient currently sitting up in chair. She had a fall last night and was found to have a left wrist fracture afterwards. This has been splinted. Pain is under control at this time. Denies any other complaints. No shortness of breath or chest pain reported at this time. - Constitutional Vitals: Temp Pulse Resp BP Pulse Ox 97.8 F 76 18 102/55 97 10/16/17 11:30 10/16/17 11:30 10/16/17 11:30 10/16/17 11:30 10/16/17 11:30 General appearance: Present: cachectic, cooperative, A&O X 3, pleasant, no acute distress, underweight, answers questions appropriately - Neck Neck exam general surgery: Present: supple, trachea midline. Absent: lymphadenopathy - Respiratory Respiratory exam: Present: CTAB. Absent: accessory muscle use, rales, rhonchi, wheezes - Cardiovascular Cardiovascular exam: Present: RRR, +S1, +S2. Absent: diastolic murmur, gallop, rubs, systolic murmur - GI/Abdominal GI/Abdominal exam: Present: normal bowel sounds, soft, no peritoneal signs. Absent: distended, tenderness - Extremities Exam Extremities exam: Present: warm, radial pulses palpable and symmetrical. Absent : calf tenderness, cyanotic, pedal edema Additional comments: Left forearm and wrist in splint - Neurological Exam Neurological exam: Present: alert, oriented X3, no focal deficits. Absent: facial droop, speech deficit - Skin Skin exam: Present: dry, intact Internal Medicine: Result - Labs CBC & Chem 7: 10/17/17 04:36 10/17/17 04:36 Labs: Short CBC 10/16/17 Range/Units 06:53 WBC 5.8 (4.3-11.1) K/mcL Hgb 7.5 L (11.5-15.4) g/dL Hct 24.5 L (35.3-44.9) % Plt Count 123 L (140-400) K/mcL Neutrophils # 4.3 (1.6-8.9) K/mcL BMP 10/16/17 06:53 Sodium 138 Potassium 4.0 Chloride 107 Carbon Dioxide 26 BUN 14 Creatinine 0.45 L Glucose 86 Calcium 8.2 L Liver Function 10/16/17 Range/Units 06:53 Total Bilirubin 0.9 (0.2-1.2) mg/dL AST 21 (5-34) Units/L ALT 17 (0-55) Units/L Alkaline Phosphatase 236 H (38-126) Units/L Albumin 2.1 L (3.5-5.0) g/dL - ABG Interpretation ABG results: PT/INR, D-dimer PT 21.2 Seconds (9.4-12.1) H 10/14/17 05:06 - Impressions Impressions Head CT 10/16/17 00:12 IMPRESSION: No acute intracranial abnormality. D/ / Mitchel German MD / Mitchel German MD Interpreting Provider: Mitchel German MD Wrist X-Ray 10/16/17 00:16 IMPRESSION: Acute fractures of the distal radius and ulnar styloid. D/ / Mitchel German MD / Mitchel German MD Interpreting Provider: Mitchel German MD Wrist X-Ray 10/16/17 03:21 IMPRESSION: Status post splinting of the distal radial fracture and ulnar styloid fracture. D/ / Timmy Dahl / Timmy Dahl Interpreting Provider: Timmy Dahl Consult Discharge Plan - Plan Referrals: Alpa Lee CNP [Primary Care Provider] - Dwayne Noel MD [Partnered Physician] - 10/19/17 11:30 am
--- NOTE | 2017-10-16 16:35 | Orthopedic Consult Note ---
Date of Encounter: 10/16/17 Time of Encounter: 16:29 History of Present Illness Chief complaint: Left wrist pain HPI: Ms. Mcdaniels is a 62 year old [id number]-fftiooza female who sustained a fall in the hospital earlier in the morning today. She states that she got her socks somehow tangled up she fell injuring her left wrist. She had x-rays taken fractures identified. She was placed in a splint. She is seen now for orthopedic evaluation and treatment. Patient denies neurovascular complaints. For complete history and physical data please refer to completed portion of the medical record. Pertinent orthopedic examination reveals the left upper extremity and a sugar tong type splint extending across the elbow. Fingers are somewhat edematous, I did remove a ring from the small finger and given to her daughter. Neurosensory exam is grossly intact. X-rays were reviewed. These reveal a minimally displaced fracture of the left distal radius and ulna. This involves an ulnar styloid fracture that is essentially nondisplaced as well as a minimally displaced fracture of the left distal radius. There is dorsal comminution. There is mild loss of the radial inclination. The distal radial palmar tilt shows minimal dorsal angulation. Impression: Fracture left distal radius and ulnar styloid (Frykman Colles' fracture Recommendation: Agree with splint immobilization at this time. Discussed with the patient and her daughter that this is the initial treatment for this fracture. This does not require any surgical intervention. I instructed them in elevation and finger range of motion exercises. I discussed with the patient and daughter that I would maintain the splint for probably 2 weeks time and then convert her to a fracture brace as an outpatient. They understand and agree with the care as outlined. We will see her as needed during this hospitalization and then would like to see her back in the office as an outpatient in about 2 weeks' time. Thank you very much for alignment is seen care for Mrs. Mcdaniels. Sincerely, Rodrigo Gipson,DO Past Med Surg Social Fam HX - Past Medical History Medical history: atrial fibrillation, CHF, COPD, coronary artery disease, hyperlipidemia, hypertension, osteoporosis, other Psychiatric history: depression - Past Surgical History Surgical History: cholecystectomy, coronary bypass (CABG), hysterectomy, other - Social History Smoking Status: Never smoker Smokeless Tobacco Status: No Alcohol use: none Drug use: none - Family History Father Race: Family Member Ethnicity: Non- Living Status: Age at : 43 Cause of : SD Hx Family Cardiac Disorders: Yes (SD) Brother Race: Family Member Ethnicity: Non- Living Status: Cause of : in house fire at 18M Sister Age: 63 Race: Family Member Ethnicity: Non- Twin of Family Member: Yes, Identical Living Status: Age at : 67 Cause of : Colon cancer Hx Family Cardiac Disorders: Yes (afib) Hx Family Cancer: Yes (Colon) Mother Adopted: No Race: Family Member Ethnicity: Non- Living Status: Age at : 46 Cause of : Colon cancer Hx Family Cardiac Disorders: Yes (SD) Hx Family Respiratory Disorders: No Hx Family Cancer: Yes (Colon ) Hx Family GI Disorders: Yes (Bowel Cancer) Hx Family Endocrine Disorder: Yes (DM) Hx Family Neuromuscular Disorders: No Hx Family Neurologic Disorders: No Hx Family HEENT Disorders: No Hx Family Autoimmune Disorders: No Medications and Allergies Folic Acid 2 mg PO DAILY 01/11/16 [History] Multivitamin/Iron/Folic Acid [Centrum Complete Multivit Tab] 1 tab PO DAILY [History] Nitroglycerin [Nitrostat] 0.4 mg SL Q5M PRN 01/11/16 [History] Simvastatin [Zocor] 20 mg PO HS 01/11/16 [History] Vitamin E 1,000 units PO DAILY 01/11/16 [History] ALPRAZolam [Xanax 1 MG Tablet] 1 mg PO TID PRN 10/18/16 [History] Lisinopril [Zestril] 40 mg PO DAILY #0 10/21/16 [Rx] Oxygen 3 l .ROUTE AD 04/06/17 [History] Potassium Chloride [Klor-Con Sprinkle] 20 meq PO DAILY 07/15/17 [History] Pregabalin [Lyrica] 75 mg PO BID 07/15/17 [History] Furosemide [Lasix] 40 mg PO DAILY PRN 09/20/17 [History] hydroCHLOROthiazide [Hydrochlorothiazide] 25 mg PO DAILY 09/20/17 [History] Acetaminophen [Tylenol] 650 mg PO Q6HR PRN tablet 09/27/17 [Rx] Apixaban [Eliquis] 5 mg PO BID #60 tablet 09/27/17 [Rx] Aspirin Enteric Coated [Aspirin EC] 81 mg PO DAILY tablet. 09/27/17 [Rx] Atorvastatin [Lipitor] 20 mg PO HS tablet 09/27/17 [Rx] Cholestyramine 4 gm PO QIDAC #120 packet 09/27/17 [Rx] Omeprazole [PriLOSEC] 40 mg PO BIDAC #60 capsule. 09/27/17 [Rx] Propylthiouracil 50 mg PO TID #90 tablet 09/27/17 [Rx] Venlafaxine XR (24 HR) [Effexor Xr] 150 mg PO DAILY #30 cap.er.24h 09/27/17 [Rx] Megestrol Acetate [Megace] 40 mg PO BID 10/13/17 [History] Metoprolol XL (24 HR) Succ [Toprol Xl] 75 mg PO DAILY 10/13/17 [History] OxyCODONE ER (12 HR) [OxyCONTIN] 30 mg PO Q12H PRN 10/13/17 [History] Oxycodone HCl/Acetaminophen [Percocet 5-325 mg Tablet] 1 tab PO Q6H PRN [History] 3 Allergy/AdvReac Type Severity Reaction Status Date / Time hydrocodone [From Vicodin] Allergy Swelling Verified 09/20/17 15:38 of Lip/Tongue/Throat All Systems Reviewed: A 10-system review of systems was performed and is negative for pertinent findings except as documented above in the HPI. Physical Exam - Constitutional Vitals: Temp Pulse Resp BP Pulse Ox 97.9 F 56 18 92/49 97 10/16/17 16:00 10/16/17 16:00 10/16/17 16:00 10/16/17 16:00 10/16/17 16:00 Results - Labs Result Diagrams: 10/16/17 06:53 10/16/17 06:53 Labs: Abnormal lab results RBC 2.99 M/mcL (3.82-4.97) L 10/16/17 06:53 Hgb 7.5 g/dL (11.5-15.4) L 10/16/17 06:53 Hct 24.5 % (35.3-44.9) L 10/16/17 06:53 MCV 81.9 fL (83.0-100.0) L 10/16/17 06:53 MCH 25.1 pg (28.0-33.3) L 10/16/17 06:53 MCHC 30.6 g/dL (31.6-35.5) L 10/16/17 06:53 RDW 19.0 % (11.5-14.5) H 10/16/17 06:53 Plt Count 123 K/mcL (140-400) L 10/16/17 06:53 Immature Plt Fraction 10.2 % (1.1-6.1) H 10/15/17 02:38 PT 21.2 Seconds (9.4-12.1) H 10/14/17 05:06 Creatinine 0.45 mg/dL (0.57-1.11) L 10/16/17 06:53 BUN/Creatinine Ratio 31 (6-26) H 10/16/17 06:53 Calcium 8.2 mg/dL (8.6-10.8) L 10/16/17 06:53 Alkaline Phosphatase 236 Units/L (38-126) H 10/16/17 06:53 B-Natriuretic Peptide 4469 pg/mL (0-100) H 10/13/17 08:34 Serum Total Protein 5.8 g/dL (6.0-8.3) L 10/16/17 06:53 Albumin 2.1 g/dL (3.5-5.0) L 10/16/17 06:53 Globulin 3.7 g/dL (2.4-3.5) H 10/16/17 06:53 Albumin/Globulin Ratio 0.6 (1.1-2.2) L 10/16/17 06:53 TSH 0.000 mcIU/mL (0.350-4.840) L 10/13/17 14:36 Free T4 3.27 ng/dl (0.70-1.48) H 10/13/17 14:36 Free T3 19.20 pg/mL (1.71-3.71) H 10/13/17 14:36 H & H 10/16/17 Range/Units 06:53 Hgb 7.5 L (11.5-15.4) g/dL Hct 24.5 L (35.3-44.9) % All other labs normal. - Diagnostic results Wrist/Hand x-ray: image reviewed Consult Discharge Plan - Plan Referrals: Alpa Lee CNP [Primary Care Provider] - Dwayne Noel MD [Partnered Physician] - 10/19/17 11:30 am
[2017-10-16] MEDS: Furosemide 40 MG TABLET PO SCH (18:05)
[2017-10-17] MEDS: Ipratropium/Albuterol Neb 3 ML IH SCH ×4 (03:31→21:30)
[2017-10-17 05:13] LABS: Basophils % 0.2 %; Eosinophils # 0.2 K/mcL (0.0-0.6); Eosinophils % 3.3 %; Hematocrit 27.7 % (35.3-44.9); Hemoglobin 8.5 g/dL (11.5-15.4); Immature Granulocytes % 0.4 % (0-4); Lymphocytes # 1.5 K/mcL (0.6-4.6); Lymphocytes % 25.8 %; Mean Corpuscular HGB Conc 30.7 g/dL (31.6-35.5); Mean Corpuscular Hemoglobin 25.8 pg (28.0-33.3); Mean Corpuscular Volume 84.2 fL (83.0-100.0); Mean Platelet Volume 11.9 fL (9.4-12.4); Monocytes # 0.3 K/mcL (0.0-1.3); Monocytes % 5.6 %; Neutrophils # 3.7 K/mcL (1.6-8.9); Platelet Count 142 K/mcL (140-400); Red Blood Count 3.29 M/mcL (3.82-4.97); Red Cell Distribution Width 18.7 % (11.5-14.5); Segmented Neutrophils % 64.7 %
[2017-10-17 05:24] LABS: Alanine Aminotransferase 19 Units/L (0-55); Albumin 2.3 g/dL (3.5-5.0); Albumin/Globulin Ratio 0.5 (1.1-2.2); Alkaline Phosphatase 275 Units/L (38-126); Aspartate Amino Transferase 21 Units/L (5-34); BUN/Creatinine Ratio 27 (6-26); Blood Urea Nitrogen 13 mg/dL (7-20); Calcium 8.6 mg/dL (8.6-10.8); Carbon Dioxide 25 mEq/L (19-29); Chloride 106 mEq/L (98-109); Globulin 4.3 g/dL (2.4-3.5); Glucose 93 mg/dL (70-99); Osmolality,Calculated 284 (280-300); Potassium 4.2 mEq/L (3.5-4.5); Sodium 137 mEq/L (136-145); Total Protein 6.6 g/dL (6.0-8.3); eGFR For African Americans > 60 (> 60); eGFR For Non-African Americans > 60 (> 60)
[2017-10-17] MEDS: *HR* OxyCODONE/APAP 5/325 TABLET PO PRN ×3 (06:15→21:24)
[2017-10-17] MEDS: Aspirin Enteric Coated 81 MG Tablet PO SCH (09:45)
[2017-10-17] MEDS: hydroCHLOROthiazide 25 MG TABLET PO SCH (09:45)
[2017-10-17] MEDS: APIXABAN 5 MG TABLET PO SCH ×2 (09:45→21:18)
[2017-10-17] MEDS: Folic Acid 1 MG TABLET PO SCH (09:45)
[2017-10-17] MEDS: Diltiazem CD (24hr) 120 MG CAPSULE PO SCH (09:45)
[2017-10-17] MEDS: Multivit/Ca/Min/Fe/FA 1 TAB TABLET PO SCH (09:46)
[2017-10-17] MEDS: Venlafaxine XR (24 HR) 150 MG CAP.ER.24H PO SCH (09:46)
[2017-10-17] MEDS: Metoprolol XL (24 HR) Succ 50 MG TAB.ER.24H PO SCH (09:46)
[2017-10-17] MEDS: Furosemide 40 MG TABLET PO SCH ×2 (09:46→21:15)
[2017-10-17] MEDS: Pregabalin 75 MG CAPSULE PO SCH ×2 (09:47→21:18)
[2017-10-17] MEDS: Cholestyramine 4 GM POWD.PACK PO SCH ×3 (09:56→21:14)
[2017-10-17] MEDS: Lisinopril 20 MG TABLET PO SCH (12:02)
--- NOTE | 2017-10-17 14:29 | Discharge Summary ---
Date of Encounter: 10/17/17 Time of Encounter: 14:20 - Discharge Diagnosis (1) Chest pain Priority: Primary Status: Acute Qualifiers: Chest pain type: other chest pain Qualified Code(s): R07.89 - Other chest pain; R07.8 - Other chest pain (2) Atrial fibrillation with RVR Priority: Secondary Status: Chronic (3) Diabetes Priority: Secondary Status: Chronic Qualifiers: Diabetes mellitus type: type 2 Diabetes mellitus complication status: with unspecified complications Diabetes mellitus custodial insulin use: without custodial use Qualified Code(s): E11.8 - Type 2 diabetes mellitus with unspecified complications (4) Diastolic CHF, acute on chronic Priority: Secondary Status: Acute (5) DVT prophylaxis Priority: Secondary Status: Acute (6) HTN (hypertension) Priority: Secondary Status: Chronic Qualifiers: Hypertension type: essential hypertension Qualified Code(s): I10 - Essential (primary) hypertension (7) Hyperthyroidism Priority: Secondary Status: Chronic (8) Fracture of left radius and ulna Priority: Secondary Status: Acute Qualifiers: Encounter type: initial encounter Fracture type: closed Qualified Code(s) : S52.92XA - Unspecified fracture of left forearm, initial encounter for closed fracture; S52.202A - Unspecified fracture of shaft of left ulna, initial encounter for closed fracture; S52.202A - Unspecified fracture of shaft of left ulna, initial encounter for closed fracture - Discharge Medications Prescriptions: Diltiazem CD (24hr) [Cardizem CD] 120 mg PO DAILY #30 cap.er.24h Furosemide [Lasix] 40 mg PO BIDDIURETIC #60 tablet Oxycodone HCl/Acetaminophen [Percocet 10-325 mg Tablet] 1 each PO Q6H PRN #20 tablet PRN Reason: Severe Pain Home Medications: Folic Acid 2 mg PO DAILY 01/11/16 [History] Multivitamin/Iron/Folic Acid [Centrum Complete Multivit Tab] 1 tab PO DAILY [History] Nitroglycerin [Nitrostat] 0.4 mg SL Q5M PRN 01/11/16 [History] Simvastatin [Zocor] 20 mg PO HS 01/11/16 [History] Vitamin E 1,000 units PO DAILY 01/11/16 [History] ALPRAZolam [Xanax 1 MG Tablet] 1 mg PO TID PRN 10/18/16 [History] Lisinopril [Zestril] 40 mg PO DAILY #0 10/21/16 [Rx] Oxygen 3 l .ROUTE AD 04/06/17 [History] Potassium Chloride [Klor-Con Sprinkle] 20 meq PO DAILY 07/15/17 [History] Pregabalin [Lyrica] 75 mg PO BID 07/15/17 [History] hydroCHLOROthiazide [Hydrochlorothiazide] 25 mg PO DAILY 09/20/17 [History] Acetaminophen [Tylenol] 650 mg PO Q6HR PRN tablet 09/27/17 [Rx] Apixaban [Eliquis] 5 mg PO BID #60 tablet 09/27/17 [Rx] Aspirin Enteric Coated [Aspirin EC] 81 mg PO DAILY tablet. 09/27/17 [Rx] Cholestyramine 4 gm PO QIDAC #120 packet 09/27/17 [Rx] Omeprazole [PriLOSEC] 40 mg PO BIDAC #60 capsule. 09/27/17 [Rx] Propylthiouracil 50 mg PO TID #90 tablet 09/27/17 [Rx] Venlafaxine XR (24 HR) [Effexor Xr] 150 mg PO DAILY #30 cap.er.24h 09/27/17 [Rx] Megestrol Acetate [Megace] 40 mg PO BID 10/13/17 [History] Metoprolol XL (24 HR) Succ [Toprol Xl] 75 mg PO DAILY 10/13/17 [History] Diltiazem CD (24hr) [Cardizem CD] 120 mg PO DAILY #30 cap.er.24h 10/17/17 [Rx] Furosemide [Lasix] 40 mg PO BIDDIURETIC #60 tablet 10/17/17 [Rx] Oxycodone HCl/Acetaminophen [Percocet 10-325 mg Tablet] 1 each PO Q6H PRN #20 tablet 10/17/17 [Rx] Allergies/Adverse Reactions: 3 Allergy/AdvReac Type Severity Reaction Status Date / Time hydrocodone [From Vicodin] Allergy Swelling Verified 09/20/17 15:38 of Lip/Tongue/Throat Procedures/tests Complete & Pending: Procedures Performed prior 72 hours Category Date Time Status CT head/brain wo con [CT] Stat Cat Scan 10/16/17 00:12 Completed SP pharm nuclear stress Routine Y 10/15/17 07:20 Completed Date of admission: 10/13/17 14:14 Primary care physician: Alpa Lee CNP Consults: 10/14/17 07:58 Consult to Cardiology [CONS] Routine Comment: Consulting Provider: Cardiology Kelley Reason for Consult: acute on chronic diastolic heart failure and atrial fibrillation with RVR and chest pain Call Completed: No 10/16/17 02:01 Consult to Orthopedic Surgery [CONS] Routine Consulting Provider: Orthopedic and Sports Medicine Reason for Consult: wrist fracture after fall Call Completed: Yes Discharging clinician: Peyman Wilson Anticipated date of discharge: 10/17/17 - Patient Status Disposition: Home Health Service Condition: Fair Functional capacity at discharge: uses cane/walker Overall status at discharge: patient is progressing back to baseline - Discharge Instructions Instructions: Diltiazem (By mouth), Furosemide (By mouth), Oxycodone/ Acetaminophen (By mouth), Heart Failure (DC), Atrial Fibrillation (DC), Chest Pain (DC), Wrist Fracture in Adults (DC), Wrist Fracture in Adults (GEN), Diabetes Mellitus Type 2 in Adults (DC), Chronic Obstructive Pulmonary Disease ( DC), Chronic Hypertension (DC), Anemia (GEN), Fall Prevention (DC), Fall Prevention (GEN), Fall Prevention, Foreign Exchange Services Manager (GEN), Fall Prevention for the Older Adult, Foreign Exchange Services Manager (GEN) Follow Up With: Alpa Lee CNP [Primary Care Provider] - Dwayne Noel MD [Partnered Physician] - 10/19/17 11:30 am Rodrigo Gipson DO [Non-Partnered Physician] - (2 weeks) Rodrigo Chin DO [Partnered Physician] - (in 1-2 weeks) Additional Instructions: Follow-up appointments: If there is not an appointment listed below, please call your physician and schedule a follow-up appointment. If you have congestive heart failure and your symptoms return, make an appointment with your physician. Medication List: Carry an up to date list of medications you are taking at all time. We have given you an updated medication list including any new medications that you have been prescribed. Please provide that list to your primary provider Symptoms: If your condition changes or you experience any of the following symptoms, notify your physician immediately: Unusual or worsening pain, fever, persistent nausea and vomiting, bleeding, increase in swelling (especially in your legs), sudden weight gain, extreme dizziness, chest pain, increased drainage or redness from a wound or incision. Go to the emergency department if you experience a problem with breathing. Weights: If you have a history of swelling or shortness of breath, weigh yourself daily and notify your physician if you have a weight gain of two or more pounds in one day or 5 or more pounds in a week. If you experience any of the warning signs for stroke: Sudden numbness or weakness of the face, arm or leg; especially on one side of the body, sudden confusion, trouble speaking or understanding, sudden trouble seeing in one or both eyes, sudden trouble walking, dizziness, loss of balance or coordination, sudden sever headache with no cause; Call 911 or go to the emergency room. Stroke is a medical emergency. Some risk factors for stroke: Age, cigarette smoking, diabetes, excessive alcohol consumption, family history , high blood pressure, overweight, physical inactivity, prior stroke, heart attack, diagnosis of carotid artery stenosis or other artery disease. If you smoke, STOP: Smoking or tobacco use significantly increases your risk of heart and lung disease. Your chance of disease greatly increases if you continue to smoke. For more information, call the [place] tobacco quit line for smoking cessation QUIT-NOW ( ) - Diet and Activity Activity: as per physical therapy Diet: advance to your usual diet, low fat, low cholesterol, low salt diet, other (Fluid restriction to 1.5 L per 24 hour) Hospital course: Ms. Mcdaniels is a 62 year old female patient with a history of atrial fibrillation , congestive heart failure, hypertension, hyperlipidemia presented to the ER here with complaints of shortness of breath that had been progressively worsening over the prior 2 days. She was diagnosed with acute congestive heart failure and started on diuretics. Cardiology was consulted to help manage patient's care. She also developed atrial fibrillation with rapid ventricular response and was placed on Cardizem drip. Her heart rate responded to Cardizem drip and she was then changed over to oral Cardizem. Cardiology evaluated the patient and in addition to this management, recommended cardiac stress test. Patient underwent cardiac stress test with nuclear medicine and was negative for ischemia. Patient's respiratory status has improved since then. However on 10/15/17, patient fell near her bed and injured her left wrist. X-ray of the wrist showed acute fracture of the left radius and ulna styloid process. Her wrist was splinted and orthopedics was consulted. Orthopedics evaluated the patient and recommending keeping the wrist splinted for about 2 weeks and to follow-up in the clinic for further management. Patient was evaluated by physical therapy and recommended placement to skilled rehabilitation. However she wishes to go home instead. She will be provided with referral for home health. At this time, she is clinically stable for discharge. Patient is already on anticoagulation with Eliquis. She will be discharged on Lasix 40 mg twice a day and Cardizem CD 120 mg daily. Patient also has uncontrolled hyperthyroidism and is on propylthiouracil. She needs to follow up with her primary care provider and worm grower for further management as outpatient. - Time Spent with Patient Total time spent providing and/or coordinating discharge services: Greater than 30 minutes (35 min) - Constitutional Vitals: Temp Pulse Resp BP Pulse Ox 98.1 F 77 16 124/60 99 10/17/17 11:26 10/17/17 11:26 10/17/17 11:26 10/17/17 11:26 10/17/17 11:26 General appearance: Present: cachectic, cooperative, A&O X 3, pleasant, no acute distress, underweight, answers questions appropriately - Neck Neck exam general surgery: Present: supple, trachea midline. Absent: lymphadenopathy - Respiratory Respiratory exam: Present: CTAB. Absent: accessory muscle use, rales, rhonchi, wheezes - Cardiovascular Cardiovascular exam: Present: RRR, +S1, +S2. Absent: diastolic murmur, gallop, rubs, systolic murmur - Extremities Exam Extremities exam: Present: warm, radial pulses palpable and symmetrical. Absent : calf tenderness, cyanotic, pedal edema Additional comments: Left forearm and wrist in splint
--- NOTE | 2017-10-17 14:38 | Physician Discharge Referral ---
Home Health/Hosp Referral Info Transfer to: Home Health Provider in Charge Post Discharge: PCP - Diagnosis (1) Chest pain Priority: Primary Status: Acute (2) Atrial fibrillation with RVR Priority: Secondary Status: Chronic (3) Diabetes Priority: Secondary Status: Chronic (4) Diastolic CHF, acute on chronic Priority: Secondary Status: Acute (5) DVT prophylaxis Priority: Secondary Status: Acute (6) HTN (hypertension) Priority: Secondary Status: Chronic (7) Hyperthyroidism Priority: Secondary Status: Chronic (8) Fracture of left radius and ulna Priority: Secondary Status: Acute - Respiratory Orders Oxygen / L per min (2) Smoking Cessation: Smoking cessation has been advised. For more information, call the [place] Tobacco Quit Line at 7-826-HDRV-NOW. - Diet/Nutrition Diet/Nutrition Orders: No Added Salt (KVNG), Cardiac (Fluid restriction to 1.5 L per 24 hours) - Activity Activity Orders: Walker - Services Needed Following services are medically necessary services: Nursing, Home Health Aide, Physical Therapy, Occupational Therapy, Med Social Work - Transfer Medications Prescriptions: Diltiazem CD (24hr) [Cardizem CD] 120 mg PO DAILY #30 cap.er.24h Furosemide [Lasix] 40 mg PO BIDDIURETIC #60 tablet Oxycodone HCl/Acetaminophen [Percocet 10-325 mg Tablet] 1 each PO Q6H PRN #20 tablet PRN Reason: Severe Pain Home Medications: Folic Acid 2 mg PO DAILY 01/11/16 [History] Multivitamin/Iron/Folic Acid [Centrum Complete Multivit Tab] 1 tab PO DAILY [History] Nitroglycerin [Nitrostat] 0.4 mg SL Q5M PRN 01/11/16 [History] Simvastatin [Zocor] 20 mg PO HS 01/11/16 [History] Vitamin E 1,000 units PO DAILY 01/11/16 [History] ALPRAZolam [Xanax 1 MG Tablet] 1 mg PO TID PRN 10/18/16 [History] Lisinopril [Zestril] 40 mg PO DAILY #0 10/21/16 [Rx] Oxygen 3 l .ROUTE AD 04/06/17 [History] Potassium Chloride [Klor-Con Sprinkle] 20 meq PO DAILY 07/15/17 [History] Pregabalin [Lyrica] 75 mg PO BID 07/15/17 [History] hydroCHLOROthiazide [Hydrochlorothiazide] 25 mg PO DAILY 09/20/17 [History] Acetaminophen [Tylenol] 650 mg PO Q6HR PRN tablet 09/27/17 [Rx] Apixaban [Eliquis] 5 mg PO BID #60 tablet 09/27/17 [Rx] Aspirin Enteric Coated [Aspirin EC] 81 mg PO DAILY tablet. 09/27/17 [Rx] Cholestyramine 4 gm PO QIDAC #120 packet 09/27/17 [Rx] Omeprazole [PriLOSEC] 40 mg PO BIDAC #60 capsule. 09/27/17 [Rx] Propylthiouracil 50 mg PO TID #90 tablet 09/27/17 [Rx] Venlafaxine XR (24 HR) [Effexor Xr] 150 mg PO DAILY #30 cap.er.24h 09/27/17 [Rx] Megestrol Acetate [Megace] 40 mg PO BID 10/13/17 [History] Metoprolol XL (24 HR) Succ [Toprol Xl] 75 mg PO DAILY 10/13/17 [History] Diltiazem CD (24hr) [Cardizem CD] 120 mg PO DAILY #30 cap.er.24h 10/17/17 [Rx] Furosemide [Lasix] 40 mg PO BIDDIURETIC #60 tablet 10/17/17 [Rx] Oxycodone HCl/Acetaminophen [Percocet 10-325 mg Tablet] 1 each PO Q6H PRN #20 tablet 10/17/17 [Rx] Allergies/Adverse Reactions: 3 Allergy/AdvReac Type Severity Reaction Status Date / Time hydrocodone [From Vicodin] Allergy Swelling Verified 09/20/17 15:38 of Lip/Tongue/Throat Certification: Further, I certify that my clinical findings support that this patient is homebound (i.e. absences from home require considerable and taxing effort and are for medical reasons or sabianism services or infrequently or short duration when for other reasons) because: Homebound Reason: Patient requires assistance of a person or device to safely leave home, Severity of cardiac or pulmonary status limits activity tolerance Attestation: My signature below is to certify that this patient is under my care and that I, or nurse practitioner, or a physician's assistant corporate secretary working with me, has a face-to -face encounter with this patient.
[2017-10-17 15:42] LABS: ABG Base Excess 0 mEq/L (-2 to 3); ABG HCO3 22 mEq/L (21-27); ABG Oxygen Saturation 99 % (95-98); ABG PCO2 28 mmHg (35-45); ABG PH 7.51 pH Units (7.32-7.45); ABG PO2 101 mmHg (85-104); ABG TCO2 23 mEq/L (20-26)
[2017-10-17 20:21] VITALS: BP 165/72
== END 2017-10-17 21:30 | disposition home health service (06) | DRG 292 ==
LOC: EMEROO 08:21 → 2NENU 08:21 → SUATTDRO 14:14
PROVIDERS: ADMIT Nurse Practitioner Family; ATTEND Internal Medicine

== ENCOUNTER 2018-04-10 17:09 | Inpatient (IN) ==
[2018-04-10 18:01] LABS: Bilirubin,Urine Negative (Negative); Blood,Urine Trace (Negative); Clarity,Urine Cloudy (Clear); Color,Urine Yellow (Yellow); Glucose,Urine (UA) Normal (Normal); Ketones,Urine Negative (Negative); Leukocyte Esterase,Urine Trace (Negative); Nitrite,Urine Positive (Negative); Protein,Urine Negative (Neg-Trace); Specific Gravity,Urine 1.027 (1.010-1.025); Urobilinogen,Urine Normal (Normal)
[2018-04-10 18:03] LABS: Bacteria,Urine Many per hpf (None-Few); Hyaline Casts,Urine Few per lpf (None-Few); RBC,Urine 0-3 per hpf (0-3); Squamous Epithelial Cell,Urine Many per lpf (None-Few)
[2018-04-10 18:18] LABS: Calcium Oxalate Crystals,Urine Present
[2018-04-10 18:37] LABS: Basophils % 0.1 %; Eosinophils % 0.4 %; Hematocrit 29.7 % (35.3-44.9); Hemoglobin 8.8 g/dL (11.5-15.4); Immature Granulocytes % 0.4 % (0-4); Lymphocytes # 0.9 K/mcL (0.6-4.6); Lymphocytes % 12.1 %; Mean Corpuscular HGB Conc 29.6 g/dL (31.6-35.5); Mean Corpuscular Hemoglobin 25.7 pg (28.0-33.3); Mean Corpuscular Volume 86.6 fL (83.0-100.0); Mean Platelet Volume 11.9 fL (9.4-12.4); Monocytes # 0.5 K/mcL (0.0-1.3); Monocytes % 7.4 %; Neutrophils # 5.6 K/mcL (1.6-8.9); Nucleated Red Blood Cells 0.3 /100 WBC (0); Platelet Count 182 K/mcL (140-400); Red Blood Count 3.43 M/mcL (3.82-4.97); Red Cell Distribution Width 25.2 % (11.5-14.5); Segmented Neutrophils % 79.6 %
--- NOTE | 2018-04-10 18:39 | Emergency Department Note ---
Disposition Clinical Impression: Fall Qualifiers: Encounter type: initial encounter Qualified Code(s): W19.XXXA - Unspecified fall, initial encounter Closed right hip fracture Qualifiers: Encounter type: initial encounter Qualified Code(s): S72.001A - Fracture of unspecified part of neck of right femur, initial encounter for closed fracture Urinary tract infection Qualifiers: Urinary tract infection type: site unspecified Hematuria presence: without hematuria Qualified Code(s): N39.0 - Urinary tract infection, site not specified Anemia Qualifiers: Anemia type: iron deficiency Iron deficiency anemia type: unspecified iron deficiency Qualified Code(s): D50.9 - Iron deficiency anemia, unspecified Disposition: Admitted As Inpatient Condition: Fair Time of Disposition: 20:17 General Adult HPI - General Stated complaint: Fall Time Seen by Provider: 04/10/18 17:21 Source: patient, EMS, disintegrator feeder Mode of arrival: EMS Limitations: no limitations Nursing Notes Reviewed: Yes Vital Signs Reviewed: Yes - History of Present Illness HPI Narrative: Patient presents emergency room via EMS for mechanical fall home. Patient her feet caught up in one of the electrical cords in her house and fell sideways hitting the side of her face as well as hurting her right hip. She denied any other trauma or injury at this time. She has no pain to palpation across the chest wall abdomen or the upper extremities. She has no bruising deformity or injury to the facial bones. She denied any chest pain shortness of breath headache vision changes nausea vomiting or diarrhea prior to the events here today. Onset (ago): [employer] Location: head, pelvis, lower extremity Radiation: non-radiation Pain Severity: moderate Pain Scale: 9 Quality: aching Consistency: constant Improves with: rest Worsens with: movement Associated symptoms: Reports: denies other symptoms Treatments Prior to Arrival: none - Related Data Home Medications Medication Instructions Recorded Confirmed Multivitamin/Iron/Folic Acid 1 tab PO DAILY 01/11/16 03/26/18 [Centrum Complete Multivit Tab] Nitroglycerin [Nitrostat] 0.4 mg SL Q5M PRN 01/11/16 03/26/18 Simvastatin [Zocor] 20 mg PO HS 01/11/16 03/26/18 Vitamin E 1,000 units PO DAILY 01/11/16 03/26/18 ALPRAZolam [Xanax 1 MG Tablet] 1 mg PO TID PRN 10/18/16 03/26/18 Oxygen 3 l .ROUTE AD 04/06/17 03/26/18 Potassium Chloride [Klor-Con 20 meq PO DAILY 07/15/17 03/26/18 Sprinkle] hydroCHLOROthiazide 25 mg PO DAILY 09/20/17 03/26/18 [Hydrochlorothiazide] Metoprolol XL (24 HR) Succ [Toprol 75 mg PO DAILY 10/13/17 03/26/18 Xl] Previous Rx's Medication Instructions Recorded Lisinopril [Zestril] 40 mg PO DAILY #0 10/21/16 Acetaminophen [Tylenol] 650 mg PO Q6HR PRN tablet 09/27/17 Apixaban [Eliquis] 5 mg PO BID #60 tablet 09/27/17 Venlafaxine XR (24 HR) [Effexor Xr] 150 mg PO DAILY #30 cap.er.24h 09/27/17 Diltiazem CD (24hr) [Cardizem CD] 120 mg PO DAILY #30 cap.er.24h 10/17/17 Oxycodone HCl/Acetaminophen 1 each PO Q6H PRN #20 tablet 10/17/17 [Percocet 10-325 mg Tablet] Aspirin [Lo-Dose Aspirin EC] 81 mg PO DAILY 365 Days tablet. 03/28/18 Bumetanide [Bumex] 1 mg PO DAILY #30 tablet 03/28/18 Cholecalciferol (D-3) [Vitamin D] 2,000 unit PO DAILY #60 tablet 03/28/18 Digoxin [Lanoxin] 0.125 mg PO DAILY #30 tablet 03/28/18 Isosorbide MONOnitrate (24 HR) 30 mg PO DAILY #30 tab.er.24h 03/28/18 [Imdur] Propylthiouracil 100 mg PO TID #180 tablet 03/28/18 Allergies Allergy/AdvReac Type Severity Reaction Status Date / Time hydrocodone [From Vicodin] Allergy Swelling Verified 09/20/17 15:38 of Lip/Tongue/Throat morphine AdvReac Rash Verified 11/20/17 16:57 All systems ED: reviewed and negative except as stated. Review of Systems: As Per HPI Constitutional: Denies: fever, chills Cardiovascular: Denies: chest pain, palpitations, dyspnea on exertion, orthopnea Respiratory: Denies: cough Gastrointestinal: Denies: nausea, vomiting, diarrhea Genitourinary: Denies: dysuria, frequency Musculoskeletal: Denies: back pain, neck pain Neurological: Denies: headache Endocrine: Denies: fatigue Past Medical History - Past Medical History Attestation: Yes The following information was validated with the patient. Source: patient Medical history: Reports: atrial fibrillation, CHF, COPD, coronary artery disease, hyperlipidemia, hypertension, osteoporosis, thyroid disease, other Surgical history: Reports: cholecystectomy, coronary bypass (CABG), hysterectomy , other Psychiatric history: Reports: depression, other - Social History Smoking Status: Never smoker Smokeless Tobacco Status: No Alcohol use: Reports: none Drug use: Reports: none Physical Exam - General Limitations: no limitations General appearance: alert - Head Head exam: atraumatic, normocephalic, normal inspection - ENT ENT exam: normal exam, normal oropharynx, mucous membranes moist - Neck Neck exam: Present: normal inspection, full ROM, trachea midline. Absent: tenderness - Chest Chest inspection: Present: normal inspection, symmetric chest wall rise. Absent : tenderness - Respiratory Respiratory exam: Present: normal lung sounds bilaterally - Cardiovascular Cardiovascular exam: Present: regular rate, normal rhythm, normal heart sounds - Abdominal Exam Abdominal exam: Present: soft, Non-Tender, normal bowel sounds. Absent: tenderness, distention, guarding, rebound, rigidity - Extremities Exam Extremities exam: Present: normal inspection, tenderness, normal capillary refill. Absent: full ROM - Neurological Exam Neurological exam: Present: alert, oriented X3, CN II-XII intact - Skin Skin exam: Present: warm, dry, intact, normal color Course Course Narrative: Patient seen and examined the time of arrival by EMS. See history of present illness. 61-year-old female tripped over a cord home falling hitting her face and injuring her right hip. She denies any other trauma or injury. She recently lost her has been living at home taking care of herself along with her dog. She denied any symptoms prior to the events here today. She currently has no chest pain shortness breath headache vision changes nausea vomiting or diarrhea. No fevers or chills. Vital signs are stable on presentation. Patient is alert she is oriented she speaks in full sentences. Head is atraumatic no signs of facial asymmetry droop of bruising. Oropharynx is patent trachea is midline. Patient has no tenderness to cervical thoracic or lumbar spine. She moves all 4 of her extremities without any difficulty. Patient has clear lungs auscultation heart is regular. Abdomen is soft. Patient does have tenderness to the right lower extremity over the greater trochanter and with log roll. She does not have the ability to raise her leg up in outside secondary to pain. Pulses in the DP and PT distributions are symmetrical bilaterally. Patient otherwise in no distress. Patient denies being on any blood thinners this time. She takes an aspirin otherwise. Patient was CT imaging of the head and cervical spine completed. Patient also had a detailed evaluation with EKG chest x-ray pelvic films and urinalysis looking for infectious etiology. Otherwise the patient does not appear to have any prodromal symptoms. Symptoms appear to be secondary to a mechanical fall. - Reevaluation(s) Reevaluation #1: Patient is concerning x-ray for possible subcapital fracture. CT was ordered at that time. Patient is found to have acute fracture of the right hip is also chronic fracture of the left hip. Patient has no other acute issues this time. Labs reviewed her hemoglobin is stable. Type and screen was added on secondary to the most likely need for transfusion during surgery as the patient is a surgical candidate. The on-call orthopedic physician Dr. Ohara was contacted. They will see the patient consult. Hospice was contacted. The presentation symptoms were discussed. Patient is found also have a urinary tract infection. She denied any dysuria but because the context of her presentation as well as the patient's referral presentation she will be given a single dose of antibiotics here and then admitted to the hospital for definitive management. The hospitalist Dr. Perez and I reviewed the patient's presentation symptoms. No other recommendations at this time. Patient will be admitted for definitive management. Patient is otherwise clinically stable Patient was provided with symptomatic control here in the emergency room including oral pain medication IV pain medication. Time: 20:14 Vital Signs Temperature 98.8 F 04/10/18 17:19 Pulse Rate 98 04/10/18 17:19 Respiratory Rate 16 04/10/18 17:19 Blood Pressure 162/80 04/10/18 17:19 O2 Sat by Pulse Oximetry 97 04/10/18 17:19 Temperature 98.8 F 04/10/18 17:19 Pulse Rate 101 04/10/18 19:27 Respiratory Rate 16 04/10/18 19:27 Blood Pressure 147/74 04/10/18 19:27 O2 Sat by Pulse Oximetry 97 04/10/18 19:27 Oxygen Delivery Oxygen Delivery Room Air Medical Decision Making - MDM Narrative Medical decision making narrative: Fall, closed head injury, right hip pain - Medical Records Medical records reviewed: Yes I reviewed the patient's medical records. - Lab Data Lab results reviewed: Yes I reviewed the patient's lab results. Result diagrams: 04/10/18 18:12 04/10/18 18:12 Lab Results 04/10/18 04/10/18 04/10/18 Range/Units 17:48 18:12 18:12 WBC 7.0 (4.3-11.1) K/mcL RBC 3.43 L (3.82-4.97) M/mcL Hgb 8.8 L (11.5-15.4) g/dL Hct 29.7 L (35.3-44.9) % MCV 86.6 D (83.0-100.0) fL MCH 25.7 L (28.0-33.3) pg MCHC 29.6 L (31.6-35.5) g/dL RDW 25.2 H (11.5-14.5) % Plt Count 182 (140-400) K/mcL MPV 11.9 (9.4-12.4) fL Immature Gran % 0.4 (0-4) % Seg Neutrophils % 79.6 % Lymphocytes % 12.1 % Monocytes % 7.4 % Eosinophils % 0.4 % Basophils % 0.1 % Neutrophils # 5.6 (1.6-8.9) K/mcL Lymphocytes # 0.9 (0.6-4.6) K/mcL Monocytes # 0.5 (0.0-1.3) K/mcL Eosinophils # 0.0 (0.0-0.6) K/mcL Basophils # 0.0 (0.0-0.2) K/mcL Nucleated RBCs/100 WBC 0.3 H (0) /100 WBC Platelet Estimate Normal (Normal) Hypochromasia Present A (Not Present) Anisocytosis 3+ A (Not Present) Sodium 140 (136-145) mEq/L Potassium 3.4 L (3.5-5.1) mEq/L Chloride 108 H (98-107) mEq/L Carbon Dioxide 27 (23-29) mEq/L BUN 16 (8-23) mg/dL Creatinine 0.23 L (0.60-1.20) mg/dL Est GFR ( Amer) > 60 (> 60) Est GFR (Non-Af Amer) > 60 (> 60) BUN/Creatinine Ratio 70 H (6-26) Glucose 95 (70-105) mg/dL Calculated Osmolality 291 (280-300) Calcium 9.2 (8.6-10.3) mg/dL Urine Color Yellow (Yellow) Urine Clarity Cloudy A (Clear) Urine pH 5.0 (5.0-8.0) pH Units Ur Specific [place] 1.027 H (1.010-1.025) Urine Protein Negative (Neg-Trace) mg/dL Urine Glucose (UA) Normal (Normal) mg/dL Urine Ketones Negative (Negative) mg/dL Urine Blood Trace H (Negative) Urine Nitrite Positive A (Negative) Urine Bilirubin Negative (Negative) Urine Urobilinogen Normal (Normal) mg/dL Ur Leukocyte Esterase Trace H (Negative) Urine Microscopic RBC 0-3 (0-3) per hpf Urine Microscopic WBC 5-15 H (0-3) per hpf Ur Squamous Epith Cells Many H (None-Few) per lpf Calcium Oxalate Crystal Present Urine Bacteria Many H (None-Few) per hpf Hyaline Casts Few (None-Few) per lpf Ur Culture Indicated? NO. A (NO) - Radiology Data Radiology results reviewed: Yes I reviewed the patient's radiology results. X-ray of the chest and pelvis are unremarkable this time. Possible subcapital fracture of the right lower extremity is noted. CT imaging pending - EKG Data EKG #1 EKG attestation: Yes I reviewed and interpreted this EKG. EKG results narrative: EKG shows sinus rhythm. Intervals appear to be stable. Ventricular rate of 98. CA interval 197. QRS duration of 88. QTC of 413. Patient denies any chest pain. Left ventricular hypertrophy is noted no acute signs of ST segment elevation or abnormality. No acute signs of WPW or Brugada syndrome. EKG is identical in comparison to previous EKG on 03/25/18
[2018-04-10 18:55] LABS: BUN/Creatinine Ratio 70 (6-26); Blood Urea Nitrogen 16 mg/dL (8-23); Calcium 9.2 mg/dL (8.6-10.3); Carbon Dioxide 27 mEq/L (23-29); Chloride 108 mEq/L (98-107); Glucose 95 mg/dL (70-105); Osmolality,Calculated 291 (280-300); Potassium 3.4 mEq/L (3.5-5.1); Sodium 140 mEq/L (136-145); eGFR For African Americans > 60 (> 60); eGFR For Non-African Americans > 60 (> 60)
[2018-04-10] MEDS ORDERED: cefTRIAXone 1,000 MG in Water for inj. (sterile) 20 ML 10 ML IVP ONE (19:36)
[2018-04-10] MEDS ORDERED: *HR* FentaNYL (PF) 100 MCG/2 ML VIAL IVP ONE (19:38)
--- NOTE | 2018-04-10 19:57 | Internal Med History&Physical ---
Date of Encounter: 04/10/18 Time of Encounter: 19:53 Internal Medicine - H&P: HPI Chief complaint: fall Admitted From: Emergency Dept Plans for Post Hospital Care: Home History of present illness: Ms. Mcdaniels is a 62 year old female with history of afib on anticoag, CHF with preserved EF, CAD status post CABG, HLD, HTN, iron deficiency, who presents here after a mechanical fall and found to have acute nondisplaced right femoral neck fracture and subacute to chronic nondisplaced left femoral neck fracture. The fall happened after she got tripped over her feet at home and felt to her side. She says she felt pain in her hips. No loss of consciousness. The patient had a fall about a month back as well as fractured her left hip and that was treated conservatively according to her, although she has not seen anyone for this. She lives alone after the of her and says she was depressed in the past but not currently. Denies any fever, chills, nausea, vomiting, headache, blurry vision, chest pain, shortness breath, abdominal pain , diarrhea, constipation, or neurological symptoms. She was found to have a urinary tract infection and was given ceftriaxone as well. The only urinary complaints she has is some mild suprapubic pain as well as urinary incontinence which is chronic. Orthopedics were consulted in the ED and recommended admission. Past Med Surg Social Fam HX - Past Medical History Medical history: atrial fibrillation, CHF, COPD, coronary artery disease, hyperlipidemia, hypertension, osteoporosis, thyroid disease, other Psychiatric history: depression, other - Past Surgical History Surgical History: cholecystectomy, coronary bypass (CABG), hysterectomy, other - Social History Smoking Status: Never smoker Smokeless Tobacco Status: No Alcohol use: none Drug use: none - Family History Father Family Member Ethnicity: Non- Living Status: Hx Family Cardiac Disorders: Yes (NM) Brother Family Member Ethnicity: Non- Living Status: Sister Family Member Ethnicity: Non- Twin of Family Member: Yes, Identical Living Status: Hx Family Cardiac Disorders: Yes (afib) Hx Family Cancer: Yes (Colon) Mother Adopted: No Family Member Ethnicity: Non- Living Status: Hx Family Cardiac Disorders: Yes (NM) Hx Family Respiratory Disorders: No Hx Family Cancer: Yes (Colon ) Hx Family GI Disorders: Yes (Bowel Cancer) Hx Family Endocrine Disorder: Yes (DM) Hx Family Neuromuscular Disorders: No Hx Family Neurologic Disorders: No Hx Family HEENT Disorders: No Hx Family Autoimmune Disorders: No Internal Medicine - H&P: Meds Multivitamin/Iron/Folic Acid [Centrum Complete Multivit Tab] 1 tab PO DAILY [History] Nitroglycerin [Nitrostat] 0.4 mg SL Q5M PRN 01/11/16 [History] Simvastatin [Zocor] 20 mg PO HS 01/11/16 [History] Vitamin E 1,000 units PO DAILY 01/11/16 [History] ALPRAZolam [Xanax 1 MG Tablet] 1 mg PO TID PRN 10/18/16 [History] Lisinopril [Zestril] 40 mg PO DAILY #0 10/21/16 [Rx] Oxygen 3 l .ROUTE AD 04/06/17 [History] Potassium Chloride [Klor-Con Sprinkle] 20 meq PO DAILY 07/15/17 [History] hydroCHLOROthiazide [Hydrochlorothiazide] 25 mg PO DAILY 09/20/17 [History] Acetaminophen [Tylenol] 650 mg PO Q6HR PRN tablet 09/27/17 [Rx] Apixaban [Eliquis] 5 mg PO BID #60 tablet 09/27/17 [Rx] Venlafaxine XR (24 HR) [Effexor Xr] 150 mg PO DAILY #30 cap.er.24h 09/27/17 [Rx] Metoprolol XL (24 HR) Succ [Toprol Xl] 75 mg PO DAILY 10/13/17 [History] Diltiazem CD (24hr) [Cardizem CD] 120 mg PO DAILY #30 cap.er.24h 10/17/17 [Rx] Oxycodone HCl/Acetaminophen [Percocet 10-325 mg Tablet] 1 each PO Q6H PRN #20 tablet 10/17/17 [Rx] Aspirin [Lo-Dose Aspirin EC] 81 mg PO DAILY 365 Days florentino. 03/28/18 [Rx] Bumetanide [Bumex] 1 mg PO DAILY #30 tablet 03/28/18 [Rx] Cholecalciferol (D-3) [Vitamin D] 2,000 unit PO DAILY #60 tablet 03/28/18 [Rx] Digoxin [Lanoxin] 0.125 mg PO DAILY #30 tablet 03/28/18 [Rx] Isosorbide MONOnitrate (24 HR) [Imdur] 30 mg PO DAILY #30 tab.er.24h 03/28/18 [ Rx] Propylthiouracil 100 mg PO TID #180 tablet 03/28/18 [Rx] 3 Allergy/AdvReac Type Severity Reaction Status Date / Time hydrocodone [From Vicodin] Allergy Swelling Verified 09/20/17 15:38 of Lip/Tongue/Throat morphine AdvReac Rash Verified 11/20/17 16:57 All Systems PM: A 10-system review of systems was performed and is negative for pertinent findings except as documented above in the HPI. Review of systems: All systems reviewed are negative except as mentioned above - Constitutional Vitals: Temp Pulse Resp BP Pulse Ox 98.8 F 101 16 147/74 97 04/10/18 17:19 04/10/18 19:27 04/10/18 19:27 04/10/18 19:27 04/10/18 19:27 Exam: GEN: NAD, cachectic HEENT: AT, NC, No cyanosis, oral mucosa is moist, No JVD Lymphatics: No lymphadenoapthy Eyes: Extrocular muscles intact, anicteric CVS:RRR. S1, S2, No m/r/g RESP: CTAB ABD: Soft, NT, suprapubic tenderness, +BS EXT: No edema, No rashes, 2+ DP. Patient is unable to raise or move right lower ext NEURO: Nonfocal, CN II-XII intact, No focal motor or sensory deficits Psych: Cooperative, Not anxious or depressed Internal Med - H&P Results - Labs CBC & Chem 7: 04/10/18 18:12 04/10/18 18:12 Labs: Short CBC 04/10/18 Range/Units 18:12 WBC 7.0 (4.3-11.1) K/mcL Hgb 8.8 L (11.5-15.4) g/dL Hct 29.7 L (35.3-44.9) % Plt Count 182 (140-400) K/mcL BMP 04/10/18 18:12 Sodium 140 Potassium 3.4 L Chloride 108 H Carbon Dioxide 27 BUN 16 Creatinine 0.23 L Glucose 95 Calcium 9.2 Urine 04/10/18 Range/Units 17:48 Urine Color Yellow (Yellow) Urine Clarity Cloudy A (Clear) Urine pH 5.0 (5.0-8.0) pH Units Ur Specific [place] 1.027 H (1.010-1.025) Urine Protein Negative (Neg-Trace) mg/dL Urine Glucose (UA) Normal (Normal) mg/dL - Impressions ITS Impressions Cervical Spine CT 04/10/18 17:21 IMPRESSION: No acute abnormality of the cervical spine. No acute intracranial abnormality. D/ / Lashae Bowie Cha, MD / Lashae Bowie Cha, MD Interpreting Provider: Lashae Bowie Cha, MD Chest X-Ray 04/10/18 17:21 IMPRESSION: Improved aeration at the right lung base but persistent opacification is noted suggesting combination of right pleural fluid and right lower lobe atelectasis or pneumonia D/ / Johnson Kumari MD / Johnson Kumari MD Interpreting Provider: Johnson Kumari MD Head CT 04/10/18 17:21 IMPRESSION: No acute abnormality of the cervical spine. No acute intracranial abnormality. D/ / Lashae Bowie Cha, MD / Lashae Bowie Cha, MD Interpreting Provider: Lashae Bowie Cha, MD Pelvis X-Ray 04/10/18 17:22 IMPRESSION: Irregularity subcapital portion of the right femoral neck. No definite fracture line is seen but a fracture in this region is a possibility. Right hip radiographs or CT of the pelvis would be helpful for further evaluation D/ / Johnson Kumari MD / Johnson Kumari MD Interpreting Provider: Johnson Kumari MD Hip CT 04/10/18 18:44 IMPRESSION: 1. Acute nondisplaced right femoral neck fracture. 2. Subacute to chronic nondisplaced left femoral neck fracture unchanged from at least 02/27/2018. D/ / Georges Bermudez MD / Georges Bermudez MD Interpreting Provider: Georges Bermudez MD - Assessment and plan (1) Femoral fracture Current Visit: Yes Status: Acute Assessment and plan: Admit to hospitalist. Pain control. c/s ortho. NPO after midnight. PT/OT. Will get an EKG for pre-op purposes. Patient has multiple cardiac risk factors including h/o CAD, CHF with preserved EF, and A. fib. Patient has no signs of CHF currently and is not in uncontrolled atrial fibrillation. I do not think the patient is having further cardiac workup. The patient is moderate cardiac risk for intermediate risk surgery. Qualifiers: Encounter type: initial encounter Femur location: neck Fracture type: closed Laterality: right Qualified Code(s): S72.001A - Fracture of unspecified part of neck of right femur, initial encounter for closed fracture (2) Frailty Current Visit: Yes Status: Acute Assessment and plan: Patient is cachectic, frail and has had recurrent falls and lives alone. She needs to be placed likely. PTOT. (3) UTI (urinary tract infection) Current Visit: Yes Status: Acute Assessment and plan: f/u on cultures. continue with rocephin as started in the ED Qualifiers: Urinary tract infection type: site unspecified Hematuria presence: without hematuria Qualified Code(s): N39.0 - Urinary tract infection, site not specified (4) Afib Current Visit: Yes Status: Acute Assessment and plan: c/w rate controlling agents. Hold anticoag for now in anticipation for surgery. Qualifiers: Atrial fibrillation type: unspecified Qualified Code(s): I48.91 - Unspecified atrial fibrillation (5) Hypokalemia Current Visit: No Status: Acute (6) CAD (coronary artery disease) Current Visit: No Status: Chronic Assessment and plan: stable. c/w cardiac meds. Hold anti-platelets Qualifiers: Coronary Disease-Associated Artery/Lesion type: [place] artery [place] vs. transplanted heart: [place] heart Associated angina: without angina Qualified Code(s): I25.10 - Atherosclerotic heart disease of [place] coronary artery without angina pectoris (7) HLD (hyperlipidemia) Current Visit: No Status: Chronic Assessment and plan: c/w home med Qualifiers: Hyperlipidemia type: pure hypercholesterolemia Qualified Code(s): E78.00 - Pure hypercholesterolemia, unspecified; E78.0 - Pure hypercholesterolemia (8) HTN (hypertension) Current Visit: No Status: Chronic Assessment and plan: Resume home anti-hypertensives Qualifiers: Hypertension type: essential hypertension Qualified Code(s): I10 - Essential (primary) hypertension (9) Type 2 diabetes mellitus Current Visit: No Status: Resolved Assessment and plan: Insulin sliding scale. 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 Will place on SQ heparin - Time Spent With Patient Total time spent is greater than 50% in coordination of care (as documented) at patient's floor/unit and/or counseling patient:
[2018-04-10] MEDS ORDERED: Naloxone 0.4 MG/ML INJ IVP PRN (20:02)
[2018-04-10] MEDS ORDERED: *HR* Dextrose 50 % in Water (Syg) 50 ML SYRINGE IVP PRN (20:02)
[2018-04-10] MEDS ORDERED: Dextrose Gel 15 GM/37.5 ML TUBE PO PRN ×2 (20:02)
[2018-04-10] MEDS ORDERED: D5% in Water 1,000 ML IVC PRN (20:02)
[2018-04-10 20:10] LABS: Anisocytosis 3+ (Not Present); Hypochromasia Present (Not Present); Platelet Estimate Normal (Normal)
[2018-04-10 20:37] LABS: INR 1.2
[2018-04-10] MEDS: *HR* OxyCODONE/APAP 10/325 TABLET PO PRN (22:59)
[2018-04-10] MEDS: *HR* Heparin 5,000 UNIT/ML VIAL SQ SCH (23:00)
[2018-04-11] MEDS: Insulin LISPRO 300 UNITS/3 ML VIAL SQ SCH ×5 (01:03→22:02)
[2018-04-11] MEDS: *HR* OxyCODONE/APAP 10/325 TABLET PO PRN ×3 (03:57→18:46)
[2018-04-11] MEDS: Acetaminophen 325 MG TABLET PO PRN (05:44)
[2018-04-11] MEDS: *HR* Heparin 5,000 UNIT/ML VIAL SQ SCH ×3 (05:46→22:03)
--- NOTE | 2018-04-11 06:46 | Orthopedic Consult Note ---
Date of Encounter: 04/11/18 Time of Encounter: 06:43 Assessment and Plan (1) Femoral fracture Current Visit: Yes Status: Acute I did discuss the diagnosis in detail with the patient as well as her daughter. She has bilateral nondisplaced femoral neck fractures, the left of which is subacute. I did discuss treatment options and certainly on the right my recommendation is percutaneous pinning to stabilize the hip and reduce the risk of displacement. We did have a long discussion regarding the left and though it is healing I do feel that there is a risk of displacement and my recommendation is for stabilization of this side as well. The risks discussed included but were not limited to stiffness, bleeding, infection, blood clots, damage to neurovascular structures, tendons, ligaments, and bone. Also discussed was the risk of continued symptoms and possible need for further procedures. I did discuss the anesthesia risks including stroke, heart attack, and . I did discuss the reasonable, foreseeable postoperative course with the patient. She did wish to proceed and consent was obtained. Qualifiers: Encounter type: initial encounter Femur location: neck Fracture type: closed Laterality: right Qualified Code(s): S72.001A - Fracture of unspecified part of neck of right femur, initial encounter for closed fracture History of Present Illness HPI: Ms. Mcdaniels is a 62 year old female who is an independent ambulator. She does have frequent falls. She apparently did have a fall about 6 weeks ago which did lead to a nondisplaced femoral neck fracture however it is unclear if this was diagnosed. It does appear to be healing and her pain is improving and has not displaced. She did have another fall yesterday where she sustained an acute fracture to her right hip. She complains of isolated pain to the right hip. She denies any headaches, neck pain, chest pain, abdominal pain, and bilateral upper extremity pain. No new injuries otherwise. She denies any numbness, tingling, or any other associated signs or symptoms. She has pain with movement of the right leg and better with rest. No other modifying factors. Past Med Surg Social Fam HX - Past Medical History Medical history: atrial fibrillation, CHF, COPD, coronary artery disease, hyperlipidemia, hypertension, osteoporosis, thyroid disease, other Psychiatric history: depression, other - Past Surgical History Surgical History: cholecystectomy, coronary bypass (CABG), hysterectomy, other - Social History Smoking Status: Never smoker Smokeless Tobacco Status: No Alcohol use: none Drug use: none - Family History Father Family Member Ethnicity: Non- Living Status: Hx Family Cardiac Disorders: Yes ([place]) Brother Family Member Ethnicity: Non- Living Status: Sister Family Member Ethnicity: Non- Twin of Family Member: Yes, Identical Living Status: Hx Family Cardiac Disorders: Yes (afib) Hx Family Cancer: Yes (Colon) Mother Adopted: No Family Member Ethnicity: Non- Living Status: Hx Family Cardiac Disorders: Yes (MA) Hx Family Respiratory Disorders: No Hx Family Cancer: Yes (Colon ) Hx Family GI Disorders: Yes (Bowel Cancer) Hx Family Endocrine Disorder: Yes (DM) Hx Family Neuromuscular Disorders: No Hx Family Neurologic Disorders: No Hx Family HEENT Disorders: No Hx Family Autoimmune Disorders: No Medications and Allergies Multivitamin/Iron/Folic Acid [Centrum Complete Multivit Tab] 1 tab PO DAILY [History] Nitroglycerin [Nitrostat] 0.4 mg SL Q5M PRN 01/11/16 [History] Simvastatin [Zocor] 20 mg PO HS 01/11/16 [History] Vitamin E 1,000 units PO DAILY 01/11/16 [History] ALPRAZolam [Xanax 1 MG Tablet] 1 mg PO TID PRN 10/18/16 [History] Lisinopril [Zestril] 40 mg PO DAILY #0 10/21/16 [Rx] Oxygen 3 l .ROUTE AD 04/06/17 [History] Potassium Chloride [Klor-Con Sprinkle] 20 meq PO DAILY 07/15/17 [History] hydroCHLOROthiazide [Hydrochlorothiazide] 25 mg PO DAILY 09/20/17 [History] Acetaminophen [Tylenol] 650 mg PO Q6HR PRN tablet 09/27/17 [Rx] Apixaban [Eliquis] 5 mg PO BID #60 tablet 09/27/17 [Rx] Venlafaxine XR (24 HR) [Effexor Xr] 150 mg PO DAILY #30 cap.er.24h 09/27/17 [Rx] Metoprolol XL (24 HR) Succ [Toprol Xl] 75 mg PO DAILY 10/13/17 [History] Diltiazem CD (24hr) [Cardizem CD] 120 mg PO DAILY #30 cap.er.24h 10/17/17 [Rx] Oxycodone HCl/Acetaminophen [Percocet 10-325 mg Tablet] 1 each PO Q6H PRN #20 tablet 10/17/17 [Rx] Aspirin [Lo-Dose Aspirin EC] 81 mg PO DAILY 365 Days tablet. 03/28/18 [Rx] Bumetanide [Bumex] 1 mg PO DAILY #30 tablet 03/28/18 [Rx] Cholecalciferol (D-3) [Vitamin D] 2,000 unit PO DAILY #60 tablet 03/28/18 [Rx] Digoxin [Lanoxin] 0.125 mg PO DAILY #30 tablet 03/28/18 [Rx] Isosorbide MONOnitrate (24 HR) [Imdur] 30 mg PO DAILY #30 tab.er.24h 03/28/18 [ Rx] Propylthiouracil 100 mg PO TID #180 tablet 03/28/18 [Rx] 3 Allergy/AdvReac Type Severity Reaction Status Date / Time hydrocodone [From Vicodin] Allergy Swelling Verified 09/20/17 15:38 of Lip/Tongue/Throat morphine AdvReac Rash Verified 11/20/17 16:57 All Systems Reviewed: The remainder of the systems were reviewed and are negative Physical Exam - Constitutional Vitals: Temp Pulse Resp BP Pulse Ox 98.2 F 83 18 165/76 99 04/11/18 04:06 04/11/18 04:06 04/11/18 04:06 04/11/18 04:06 04/11/18 04:06 Constitutional -Vitals reviewed -The patient is well developed and well nourished. -Mood is pleasant. -The patient is well groomed. Psychiatric -The patient is fully alert and oriented x 3. Respiratory: -Respiratory effort normal Abdomen: -Soft abdomen -Non tender -Non distended: Left upper extremity: -No deformities. The overlying skin is intact. No obvious signs of acute trauma. -No tenderness to palpation throughout. -No significant pain with passive motion of the shoulder, elbow, wrist, and fingers within the limits of the bed. -Able to make an "OK" sign, cross the index and long fingers, and extend the thumb. -Sensation grossly intact to light touch throughout the median, radial, and ulnar distributions. -Radial pulse is present; Fingers have good capillary refill. Right upper extremity: -No deformities. The overlying skin is intact. No obvious signs of acute trauma. -No tenderness to palpation throughout. -No significant pain with passive motion of the shoulder, elbow, wrist, and fingers within the limits of the bed. -Able to make an "OK" sign, cross the index and long fingers, and extend the thumb. -Sensation grossly intact to light touch throughout the median, radial, and ulnar distributions. -Radial pulse is present; Fingers have good capillary refill. Left lower extremity: -No deformities. The overlying skin is intact. No obvious signs of acute trauma. -No tenderness to palpation throughout. -No pain with passive motion of the hip, knee, ankle, and toes within the limits of the bed. -No pain with axial loading of the thigh. -Able to dorsiflex and plantarflex the ankle and toes. -Sensation is grossly intact to light touch throughout the sural, saphenous, superficial peroneal, and deep peroneal distributions. -Toes have good capillary refill. Right lower extremity: -No deformities. The overlying skin is intact. No obvious signs of acute trauma. -Moderate tenderness to palpation of the right hip -Significant pain with any passive motion of the right hip -No pain with axial loading of the thigh. -Able to dorsiflex and plantarflex the ankle and toes. -Sensation is grossly intact to light touch throughout the sural, saphenous, superficial peroneal, and deep peroneal distributions. -Toes have good capillary refill. Diagnostic Imaging: I did personally review and interpret the CT scan of the bilateral hips which show a healing nondisplaced left femoral neck fracture and an acute nondisplaced right femoral neck fracture Results - Labs Result Diagrams: 04/10/18 18:12 04/10/18 18:12 Labs: Abnormal lab results RBC 3.43 M/mcL (3.82-4.97) L 04/10/18 18:12 Hgb 8.8 g/dL (11.5-15.4) L 04/10/18 18:12 Hct 29.7 % (35.3-44.9) L 04/10/18 18:12 MCH 25.7 pg (28.0-33.3) L 04/10/18 18:12 MCHC 29.6 g/dL (31.6-35.5) L 04/10/18 18:12 RDW 25.2 % (11.5-14.5) H 04/10/18 18:12 Nucleated RBCs/100 WBC 0.3 /100 WBC (0) H 04/10/18 18:12 Hypochromasia Present (Not Present) A 04/10/18 18:12 Anisocytosis 3+ (Not Present) A 04/10/18 18:12 PT 13.0 Seconds (9.4-12.1) H 04/10/18 20:16 Potassium 3.4 mEq/L (3.5-5.1) L 04/10/18 18:12 Chloride 108 mEq/L (98-107) H 04/10/18 18:12 Creatinine 0.23 mg/dL (0.60-1.20) L 04/10/18 18:12 BUN/Creatinine Ratio 70 (6-26) H 04/10/18 18:12 Urine Clarity Cloudy (Clear) A 04/10/18 17:48 Ur Specific [place] 1.027 (1.010-1.025) H 04/10/18 17:48 Urine Blood Trace (Negative) H 04/10/18 17:48 Urine Nitrite Positive (Negative) A 04/10/18 17:48 Ur Leukocyte Esterase Trace (Negative) H 04/10/18 17:48 Urine Microscopic WBC 5-15 per hpf (0-3) H 04/10/18 17:48 Ur Squamous Epith Cells Many per lpf (None-Few) H 04/10/18 17:48 Urine Bacteria Many per hpf (None-Few) H 04/10/18 17:48 Ur Culture Indicated? NO. (NO) A 04/10/18 17:48 All other labs normal. Consult Discharge Plan - Plan
[2018-04-11 07:13] LABS: Hematocrit 27.9 % (35.3-44.9); Hemoglobin 8.5 g/dL (11.5-15.4); Mean Corpuscular HGB Conc 30.5 g/dL (31.6-35.5); Mean Corpuscular Hemoglobin 26.1 pg (28.0-33.3); Mean Corpuscular Volume 85.6 fL (83.0-100.0); Mean Platelet Volume 11.5 fL (9.4-12.4); Nucleated Red Blood Cells 0.5 /100 WBC (0); Platelet Count 138 K/mcL (140-400); Red Blood Count 3.26 M/mcL (3.82-4.97); Red Cell Distribution Width 25.5 % (11.5-14.5)
[2018-04-11 07:33] LABS: Blood Urea Nitrogen 16 mg/dL (8-23); Calcium 9.1 mg/dL (8.6-10.3); Carbon Dioxide 26 mEq/L (23-29); Chloride 109 mEq/L (98-107); Glucose 91 mg/dL (70-105); Magnesium 1.7 mg/dL (1.6-2.6); Osmolality,Calculated 289 (280-300); Potassium 4.3 mEq/L (3.5-5.1); Sodium 139 mEq/L (136-145)
[2018-04-11] MEDS: cefTRIAXone 1,000 MG in Water for inj. (sterile) 20 ML 10 ML IVP SCH (09:14)
[2018-04-11 12:28] LABS: Lymphocytes # 0.7 K/mcL (0.6-4.6); Monocytes # 0.1 K/mcL (0.0-1.3); Neutrophils # 3.4 K/mcL (1.6-8.9)
[2018-04-11 12:44] LABS: Anisocytosis 3+ (Not Present); Hypochromasia Present (Not Present); Platelet Estimate Slight Decrease (Normal)
--- NOTE | 2018-04-11 12:45 | Internal Med Progress Note ---
Date of Encounter: 04/11/18 Time of Encounter: 12:40 - Assessment and plan (1) Femoral fracture Current Visit: Yes Status: Acute Assessment and plan: Ortho following. Management per orthopedic surgery. Qualifiers: Encounter type: initial encounter Femur location: neck Fracture type: closed Laterality: right Qualified Code(s): S72.001A - Fracture of unspecified part of neck of right femur, initial encounter for closed fracture (2) CAD (coronary artery disease) Current Visit: No Status: Chronic Assessment and plan: stable. c/w cardiac meds. Hold anti-platelets Qualifiers: Coronary Disease-Associated Artery/Lesion type: [place] artery [place] vs. transplanted heart: [place] heart Associated angina: without angina Qualified Code(s): I25.10 - Atherosclerotic heart disease of [place] coronary artery without angina pectoris (3) HTN (hypertension) Current Visit: No Status: Chronic Assessment and plan: Resume home anti-hypertensives Qualifiers: Hypertension type: essential hypertension Qualified Code(s): I10 - Essential (primary) hypertension (4) Type 2 diabetes mellitus Current Visit: No Status: Resolved Assessment and plan: Insulin sliding scale. Accucheks Qualifiers: Diabetes mellitus mcfp insulin use: without mcfp use Diabetes mellitus complication status: without complication Qualified Code(s): E11.9 - Type 2 diabetes mellitus without complications (5) HLD (hyperlipidemia) Current Visit: No Status: Chronic Assessment and plan: c/w home med Qualifiers: Hyperlipidemia type: pure hypercholesterolemia Qualified Code(s): E78.00 - Pure hypercholesterolemia, unspecified; E78.0 - Pure hypercholesterolemia (6) Hypokalemia Current Visit: No Status: Acute Assessment and plan: Replace as needed (7) Afib Current Visit: Yes Status: Acute Qualifiers: Atrial fibrillation type: unspecified Qualified Code(s): I48.91 - Unspecified atrial fibrillation (8) UTI (urinary tract infection) Current Visit: Yes Status: Acute Qualifiers: Urinary tract infection type: site unspecified Hematuria presence: without hematuria Qualified Code(s): N39.0 - Urinary tract infection, site not specified (9) DVT prophylaxis Current Visit: Yes Status: Acute Assessment and plan: Hold eliquis for now. Will place on SQ heparin (10) Frailty Current Visit: Yes Status: Acute Assessment and plan: Patient is cachectic, frail and has had recurrent falls and lives alone. She needs to be placed likely. PTOT. - Time Spent With Patient Total time spent is greater than 50% in coordination of care (as documented) at patient's floor/unit and/or counseling patient: - Subjective Interval history: No acute events overnight - Constitutional Vitals: Temp Pulse Resp BP Pulse Ox 97.8 F 74 15 119/74 98 04/11/18 12:10 04/11/18 12:10 04/11/18 12:10 04/11/18 12:10 04/11/18 12:10 - Head Head exam: Present: atraumatic, normocephalic - Eye Eye exam: Present: PERRL, conjuntiva pink, sclera anicteric Pupils: Present: PERRL - Neck Neck exam general surgery: Present: supple, trachea midline. Absent: lymphadenopathy - Respiratory Respiratory exam: Present: CTAB. Absent: accessory muscle use, rales, rhonchi, wheezes - Cardiovascular Cardiovascular exam: Present: RRR, +S1, +S2. Absent: diastolic murmur, gallop, rubs, systolic murmur - GI/Abdominal GI/Abdominal exam: Present: normal bowel sounds, soft, no peritoneal signs. Absent: distended, tenderness - Extremities Exam Extremities exam: Present: warm, radial pulses palpable and symmetrical. Absent : calf tenderness, cyanotic, pedal edema - Neurological Exam Neurological exam: Present: CN II-XII intact, oriented X3, no focal deficits. Absent: pronater drift, facial droop, speech deficit - Skin Skin exam: Present: dry, intact Internal Medicine: Result - Labs CBC & Chem 7: 04/11/18 06:48 04/11/18 06:48 Labs: Short CBC 04/11/18 Range/Units 06:48 WBC 4.3 (4.3-11.1) K/mcL Hgb 8.5 L (11.5-15.4) g/dL Hct 27.9 L (35.3-44.9) % Plt Count 138 L (140-400) K/mcL BMP 04/11/18 06:48 Sodium 139 Potassium 4.3 D Chloride 109 H Carbon Dioxide 26 BUN 16 Creatinine < 0.20 L Glucose 91 Calcium 9.1 - ABG Interpretation ABG results: PT/INR, D-dimer PT 13.0 Seconds (9.4-12.1) H 04/10/18 20:16 Consult Discharge Plan - Plan Referrals: NONE,PCP [Primary Care Provider] -
[2018-04-11] MEDS ORDERED: *HR* FentaNYL (PF) 100 MCG/2 ML VIAL ONE ×4 (14:50→17:13)
[2018-04-11] MEDS ORDERED: *HR* Propofol 200 MG/20 ML VIAL IVP ONE ×2 (14:50→16:17)
[2018-04-11] MEDS ORDERED: Lidocaine -MPF 2% 2 ML VIAL ONE ×2 (14:51→16:17)
--- NOTE | 2018-04-11 15:19 | Anesthesia Evaluation PreOp ---
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, Other (Anxiety/Depression) Other Medical History: Denies Any Significant HX, Thyroid (Hypo) Anesthesia History: No Prior Anesthetic Complications, Past Anesthesia (CABG x 2v, Tracee, Hyster, Bowel Surgery) : No Alcohol Use: none Drug use: none Medications and Allergies ALPRAZolam [Xanax 0.5 MG Tablet] 0.5 mg PO TID 04/11/18 [History] Aspirin 325 mg PO DAILY 04/11/18 [History] Bumetanide [Bumex] 1 mg PO DAILY 04/11/18 [History] Digoxin [Lanoxin] 0.125 mg PO DAILY 04/11/18 [History] Ferrous Sulfate [Iron] 325 mg PO BID 04/11/18 [History] Furosemide [Lasix] 20 mg PO DAILY 04/11/18 [History] Isosorbide MONOnitrate (24 HR) [Imdur] 30 mg PO DAILY 04/11/18 [History] Lisinopril [Zestril] 40 mg PO DAILY 04/11/18 [History] Nitroglycerin [Nitrostat] 0.4 mg SL Q5M PRN 04/11/18 [History] OxyCODONE Immed Rel [Roxicodone 10 MG] 10 mg PO QID 04/11/18 [History] Pregabalin [Lyrica] 75 mg PO BID 04/11/18 [History] Simvastatin [Zocor] 20 mg PO HS 04/11/18 [History] methIMAzole [Methimazole] 10 mg PO DAILY 04/11/18 [History] 3 Allergy/AdvReac Type Severity Reaction Status Date / Time hydrocodone [From Vicodin] Allergy Swelling Verified 09/20/17 15:38 of Lip/Tongue/Throat morphine AdvReac Rash Verified 11/20/17 16:57 - Meds/Allergy Pre-op Review Medications Reviewed: Yes Allergies Reviewed: Yes Beta Blockers on Current Med List: No Anesthesia Results - Labs 04/11/18 06:48 04/11/18 06:48 Echocardiogram Name: Didier Mcdaniels Date of Study: 08/13/2017 [id number]^ProVation^FT^PDF EV/EV echocardiogram Impressions: LVEF 60%. Normal left ventricular size and systolic function. Indeterminate left ventricular diastolic function. Normal right ventricular size and function. Mild aortic regurgitation. Mild mitral regurgitation. Mild tricuspid regurgitation. At least mild pulmonary hypertension by TR gradient. IVC is not visualized to estimate RVSP. A pleural effusion is present. - Imaging EKG: report reviewed (SINUS TACHYCARDIA BORDERLINE FIRST DEGREE AVB) Anesthesia Exam Vital Signs/O2 Sat, Most Current Temp Pulse Resp BP Pulse Ox 97.8 F 74 15 119/74 98 04/11/18 12:10 04/11/18 12:10 04/11/18 12:10 04/11/18 12:10 04/11/18 12:10 - HEENT Pupil (Motor): Pupils equal, EOMI Mallampati: II Teeth: Edentulous Oral Opening: Greater than 3 - AEROSPACE ENGINEER LOC: Oriented AEROSPACE ENGINEER Motor: Normal RUE, Normal LUE, Normal RLE, Normal LLE, Normal Face AEROSPACE ENGINEER Sensory: Normal: RUE, LUE, RLE, LLE, Face - Cardiac Rhythm: Regular Murmur: None JVD: No Carotid Bruit: No - Pulmonary Breath Sounds: bilateral Clear Respiratory Effort: Symmetrical Anesthesia Assess/Plan ASA Score: 3 Modified [place] Scale for Level of Consciousness: Cooperative, oriented, and tranquil Anesthetic Plan: General Autologous Blood: Yes Monitoring Plan: Standard Monitors Recovery Plan: PACU
[2018-04-11] MEDS ORDERED: CeFAZolin Syr 2,000MG/20 ML 2,000 MG/20 ML SYRINGE IVPB ONE (15:20)
--- NOTE | 2018-04-11 15:58 | Electrocardiograph Report ---
[address] [address] Test Date: 2018-04-10 Pat Name: Didier Mcdaniels Department: 102 Room: [facility] Gender: F Training And Development Officer: : 1955 Requested By: Mike Jensen Order Number: [id number] Reading MD: Gypsy Zendejas Measurements Intervals [place] Rate: 98 P: 73 CO: 197 QRS: 17 QRSD: 88 T: 88 QT: 358 QTc: 413 Interpretive Statements SINUS RHYTHM LEFT VENTRICULAR HYPERTROPHY AND ST-T CHANGE [VOLTAGE CRITERIA PLUS ST/T ABNORMALITY] Electronically Signed On 04-11-2018 15:57:03 EDT by Gypsy Zendejas
[2018-04-11] MEDS ORDERED: Lidocaine -MPF 4% 5 ML AMPUL ONE ×2 (16:17→17:50)
[2018-04-11] MEDS ORDERED: *HR* PHENYLEPHRINE 1,000 MCG/10 ML SYRINGE IVP ONE (16:17)
[2018-04-11] MEDS ORDERED: Ondansetron 4 MG/2 ML VIAL ONE ×2 (16:17→17:58)
[2018-04-11] MEDS ORDERED: Dexamethasone 4 MG/ML VIAL ONE ×2 (16:17→17:58)
[2018-04-11] MEDS ORDERED: *HR* Succinylcholine 200 MG/10 ML VIAL IVP ONE ×2 (16:17→17:58)
--- NOTE | 2018-04-11 17:36 | Orthopedic Operative Note ---
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 anesthesia PREOPERATIVE ANTIBIOTICS: 2 g of Ancef ESTIMATED BLOOD LOSS: 75 milliliters IMPLANTS: Nita 6.5 mm cannulated screws, 3 used on each side LOCAL INJECTION: None PREOPERATIVE NOTE AND INDICATIONS: This patient is a 62-year-old female with a subacute left impacted femoral neck fracture which has gone untreated. She also had an injury yesterday resulting in an acute impacted right femoral neck fracture. Treatment options were discussed and the recommendation was to internally fix both hips in order to reduce the risk of displacement. The surgical plan was discussed with the patient. The risks, benefits, alternatives, and potential complications of this procedure were discussed with the patient including injury to veins, arteries, nerves, tendons, ligaments, and bone. Also discussed were the risks of infection, bleeding, pain, blood clots, the possible need for a blood transfusion, the possible need for further procedures, heart attack, stroke, and . Additional risks include malunion , nonunion, hardware failure, avascular necrosis, collapse, and screw penetration. All of this was explained in simple terms, and the patient verbalized understanding and wished to proceed. Consent was given to proceed with surgery. PROCEDURE: The patient was seen in the preoperative holding area where the identify and the consent were confirmed. The bilateral hips wer marked. Final questions were answered. The patient was brought back to the operating room. A huddle was performed with the patient and all vital surgical team members confirming patient identity, the correct procedure, and the correct operative site. Gen. anesthesia was administered. The patient was placed onto the traction bed in each leg placed in a traction boot without traction. The left lower extremity was lowered. X-rays came in and good views of the right hip could be seen. The right thigh was prepped and draped in the usual sterile fashion. A surgical time out was performed immediately preceding the incision with all personnel in the operating room to confirm patient identity, the correct operative site and extremity, correct radiographic studies, availability of appropriate surgical equipment, and agreement on the planned procedure. A small longitudinal incision was made and dissection proceeded through the subcutaneous tissue and the fascia and the vastus lateralis. 3 K wires were drilled into the femoral head and these were overdrilled, measured, and the definitive screws placed with good purchase. X-rays confirmed good position. The wound was copiously irrigated and the fascia was closed with 0 Vicryl stitches. The skin was closed with 3-0 Vicryl stitches followed by drake. A sterile dressing was applied. The sterile field was taken down and the right lower extremity lowered and the left lower extremity placed back to neutral height. X-rays were taken and good views of the left hip could be obtained. The left hip was prepped and draped in the usual sterile fashion. A small longitudinal incision was made and dissection proceeded through the subcutaneous tissue and the fascia and the vastus lateralis. 3 K wires were drilled into the femoral head and these were overdrilled, measured, and the definitive screws placed with good purchase. X-rays confirmed good position. The wound was copiously irrigated and the fascia was closed with 0 Vicryl stitches. The skin was closed with 3-0 Vicryl stitches followed by drake. A sterile dressing was applied. The patient was taken down off the traction table and placed on her regular bed having tolerated the procedure well. The instrument, sponge, and needle counts were correct after wound closure. POST OPERATIVE PLAN: Weight Bearing: Weightbearing as tolerated on the bilateral lower extremities. DVT Prophylaxis: Aspirin 325 mg by mouth twice a day Activity: Activities as tolerated with the assistance of physical therapy Wound Care: Keep the dressing clean, dry, and intact. Pain Control: Per the hospitalist Perioperative antibiotic prophylaxis: 2 doses of Ancef Social work for discharge planning Follow Up: 2 weeks for staple removal Was there an real estate executive assistant present: No Estimated blood loss (cc): 75
[2018-04-11] MEDS ORDERED: *HR* HYDROmorphone (PF) 1 MG/ML SYRINGE ONE (17:43)
[2018-04-11] MEDS ORDERED: Neostigmine Methylsulfate 3 MG/3 ML SYRINGE ONE (17:58)
[2018-04-11] MEDS ORDERED: *HR* Rocuronium Bromide 50 MG/5 ML VIAL ONE (17:58)
[2018-04-11] MEDS ORDERED: *HR* HYDROmorphone (PF) 1 MG/ML SYRINGE IVP PRN (18:06)
--- NOTE | 2018-04-11 18:17 | Anesthesia Evaluation Post Op ---
Date of Encounter: 04/11/18 Time of Encounter: 18:17 - Vital Signs Vital Signs: Vital Signs/O2 Sat, Most Current Temp Pulse Resp BP Pulse Ox 100.0 F H 92 16 149/73 99 04/11/18 17:34 04/11/18 17:54 04/11/18 17:54 04/11/18 17:54 04/11/18 17:54 - Lungs Lungs: Clear Ascult./Percussion - Airway Airway: Non-obstructed - Cardiovascular Regular Rate - Mental Status Mental Status: Alert & Oriented, Answers Appropriately - Pain Pain Scale: 0 Pain Scale used: Numeric (1 - 10) - Nausea Vomiting Nausea Vomiting: Not Present - Hydration Hydration: Ice chips, Jaime catheter - Discharge PostOp Status: Transfer Patient to floor
[2018-04-11] MEDS ORDERED: Nitroglycerin 0.4 MG TAB.SUBL SL PRN (20:11)
[2018-04-11] MEDS ORDERED: *HR* Digoxin 0.125 MG TABLET PO ONE (21:00)
[2018-04-11] MEDS: Pregabalin 75 MG CAPSULE PO SCH (22:02)
[2018-04-12] MEDS ORDERED: *HR* Digoxin 0.125 MG TABLET PO ONE (00:15)
[2018-04-12] MEDS ORDERED: traMADol 50 MG TABLET PO ONE (00:15)
[2018-04-12] MEDS: CeFAZolin Pre 2,000 MG/100 ML 2,000 MG/100 ML BAG IVPB SCH ×2 (00:32→08:06)
[2018-04-12 01:00] LABS: Hematocrit 27.2 % (35.3-44.9); Hemoglobin 8.1 g/dL (11.5-15.4)
[2018-04-12 01:16] LABS: BUN/Creatinine Ratio 52 (6-26); Blood Urea Nitrogen 15 mg/dL (8-23); Calcium 8.8 mg/dL (8.6-10.3); Carbon Dioxide 26 mEq/L (23-29); Chloride 109 mEq/L (98-107); Glucose 276 mg/dL (70-105); Osmolality,Calculated 299 (280-300); Potassium 4.6 mEq/L (3.5-5.1); Sodium 139 mEq/L (136-145); eGFR For African Americans > 60 (> 60); eGFR For Non-African Americans > 60 (> 60)
[2018-04-12] MEDS ORDERED: *HR* OxyCODONE/APAP 5/325 TABLET PO PRN (02:25)
[2018-04-12] MEDS: *HR* Heparin 5,000 UNIT/ML VIAL SQ SCH (05:16)
--- NOTE | 2018-04-12 07:25 | Orthopedics Progress Note ---
Date of Encounter: 04/12/18 Time of Encounter: 07:23 - Assessment and Plan (1) Femoral fracture Current Visit: Yes Status: Acute Qualifiers: Encounter type: initial encounter Femur location: neck Fracture type: closed Laterality: right Qualified Code(s): S72.001A - Fracture of unspecified part of neck of right femur, initial encounter for closed fracture Subjective Interval history: S: Resting comfortably in bed. Improved pain to the right hip. No significant pain to the left hip. Events of last night noted. She did have atrial fibrillation with RVR. Troponins were negative. Apparently the patient is on Eliquis at home. O: Afebrile on the vital signs are stable Bilateral hip dressings are clean, dry, and intact I can gently log rolled the left hip with no pain I can gently log rolled the right hip with minimal pain She is neurovascularly intact distally on both lower extremities. A: Post bilateral hip pinning P: Is currently on heparin for DVT prophylaxis. I defer to the primary team regarding switching her back to her home anticoagulant Weightbearing as tolerated on the bilateral lower extremities Physical therapy when able Jaime out today Dressing change tomorrow Objective Vital signs: Vital Signs Temp Pulse Resp BP Pulse Ox 04/12/18 07:03 97.7 F 98 16 131/71 98 04/12/18 04:39 98.6 F 81 17 122/52 99 04/11/18 23:47 97.9 F 139 18 135/81 95 04/11/18 22:00 98.5 F 88 16 114/51 98 04/11/18 20:49 98.6 F 91 18 117/57 93 04/11/18 20:05 97.4 F L 103 16 149/64 100 04/11/18 19:30 99.2 F 94 16 145/65 98 04/11/18 18:35 98.0 F 97 23 162/77 98 04/11/18 18:24 99.4 F 97 16 159/78 98 04/11/18 18:14 93 16 160/80 98 04/11/18 18:04 99.9 F H 93 16 147/77 98 04/11/18 17:54 92 16 149/73 99 04/11/18 17:44 92 16 145/75 97 04/11/18 17:34 100.0 F H 77 16 115/54 100 04/11/18 12:10 97.8 F 74 15 119/74 98 04/11/18 08:43 97.7 F 76 18 152/70 95 Intake and Output 04/11/18 04/11/18 04/12/18 15:59 23:59 07:59 Intake Total 0 / 0 600 / 600 Output Total 400 / 400 75 / 75 1300 / 1300 Balance -400 / -400 -75 / -75 -700 / -700 Intake: IV Fluids 100 / 100 Ancef Premix 2,000 MG/100 ML 2, 100 / 100 000 mg In 100 ml @ 200 mls/hr IVPB Q8HR ROSA Rx#:[id number] Oral 0 / 0 500 / 500 Output: Estimated Blood Loss 75 / 75 Catheter 400 / 400 1300 / 1300 Other: Meal Breakfast Percent of Meal Consumed 0% Stool Size Small Stool Consistency soft Stool Color Brown # Voids 1 Weight 46.2 kg Blood Glucose* 87 409 Patient Weight 04/12/18 23:59 Weight 46.2 kg - Labs CBC & BMP: 04/12/18 00:45 04/12/18 00:45 Labs: Abnormal lab results RBC 3.26 M/mcL (3.82-4.97) L 04/11/18 06:48 Hgb 8.1 g/dL (11.5-15.4) L 04/12/18 00:45 Hct 27.2 % (35.3-44.9) L 04/12/18 00:45 MCH 26.1 pg (28.0-33.3) L 04/11/18 06:48 MCHC 30.5 g/dL (31.6-35.5) L 04/11/18 06:48 RDW 25.5 % (11.5-14.5) H 04/11/18 06:48 Plt Count 138 K/mcL (140-400) L 04/11/18 06:48 Nucleated RBCs/100 WBC 0.5 /100 WBC (0) H 04/11/18 06:48 Platelet Estimate Slight Decrease (Normal) L 04/11/18 06:48 Hypochromasia Present (Not Present) A 04/11/18 06:48 Anisocytosis 3+ (Not Present) A 04/11/18 06:48 PT 13.0 Seconds (9.4-12.1) H 04/10/18 20:16 Chloride 109 mEq/L (98-107) H 04/12/18 00:45 Creatinine 0.29 mg/dL (0.60-1.20) L 04/12/18 00:45 BUN/Creatinine Ratio 52 (6-26) H 04/12/18 00:45 Glucose 276 mg/dL (70-105) H 04/12/18 00:45 Urine Clarity Cloudy (Clear) A 04/10/18 17:48 Ur Specific [place] 1.027 (1.010-1.025) H 04/10/18 17:48 Urine Blood Trace (Negative) H 04/10/18 17:48 Urine Nitrite Positive (Negative) A 04/10/18 17:48 Ur Leukocyte Esterase Trace (Negative) H 04/10/18 17:48 Urine Microscopic WBC 5-15 per hpf (0-3) H 04/10/18 17:48 Ur Squamous Epith Cells Many per lpf (None-Few) H 04/10/18 17:48 Urine Bacteria Many per hpf (None-Few) H 04/10/18 17:48 Ur Culture Indicated? NO. (NO) A 04/10/18 17:48 - VTE Documentation of Mechanical Device: Intermittent pneumatic compression device Consult Discharge Plan - Plan Additional Instructions: [facility] DISCHARGE INSTRUCTIONS Dr. Ohara PROCEDURE PERFORMED Fixation of the bilateral hips Incision care -Daily dressing changes to the bilateral hips with dry gauze and either paper tape or medipore tape. -Avoid soaking wound in water (no hot tubs, bathtubs, swimming pools). -May shower after 2 weeks from surgery date. Carefully wash incision with soap and water. Gently pat it dry. Don't rub the incision, or apply creams or lotions. Sit on a shower stool when showering to keep from falling. Weight bearing status -Weightbearing as tolerated to the bilateral lower extremities. Medications -Pain medication per the discharging medical doctor -Blood thinner per the discharging medical doctor Other -Knee high ERIKA hose 23 hours per day -Consult physical and occupational therapy for mobilization. -Up to chair with assistance at least twice per day. -Follow up with your primary care physician to discuss testing for bone mineral density. Follow-up with Dr. Ohara at the office 2 weeks from the surgery date for a post operative evaluation. Call the office at [phone] to schedule appointment. Referrals: NONE,PCP [Primary Care Provider] -
[2018-04-12] MEDS: *HR* OxyCODONE/APAP 5/325 TABLET PO PRN ×4 (07:28→20:44)
[2018-04-12] MEDS: Insulin LISPRO 300 UNITS/3 ML VIAL SQ SCH ×5 (07:29→21:08)
[2018-04-12] MEDS: *HR* Digoxin 0.125 MG TABLET PO SCH (08:07)
[2018-04-12] MEDS: Isosorbide MONOnitrate (24 HR) 30 MG TAB.ER.24H PO SCH (08:07)
[2018-04-12] MEDS: Lisinopril 20 MG TABLET PO SCH (08:07)
[2018-04-12] MEDS ORDERED: Aspirin 325 MG TABLET PO SCH (09:00)
[2018-04-12] MEDS ORDERED: Bumetanide 1 MG TABLET PO SCH (09:00)
[2018-04-12] MEDS: cefTRIAXone 1,000 MG in Water for inj. (sterile) 20 ML 10 ML IVP SCH (09:39)
[2018-04-12] MEDS: Furosemide 20 MG TABLET PO SCH (09:39)
[2018-04-12] MEDS: Pregabalin 75 MG CAPSULE PO SCH ×2 (09:39→20:44)
[2018-04-12] MEDS: methIMAzole 5 MG TABLET PO SCH (09:39)
--- NOTE | 2018-04-12 13:39 | Internal Med Progress Note ---
Date of Encounter: 04/12/18 Time of Encounter: 13:30 - Assessment and plan (1) Afib Current Visit: Yes Status: Acute Assessment and plan: A fib with rvr, continue rate control with cardizem drip. Wean cardizem down to PO. Resume eliquis Qualifiers: Atrial fibrillation type: unspecified Qualified Code(s): I48.91 - Unspecified atrial fibrillation (2) Femoral fracture Current Visit: Yes Status: Acute Assessment and plan: Ortho following. pOD #1/sp bilateral hip pinning. Continue physical therapy. Discharge planning Qualifiers: Encounter type: initial encounter Femur location: neck Fracture type: closed Laterality: right Qualified Code(s): S72.001A - Fracture of unspecified part of neck of right femur, initial encounter for closed fracture (3) CAD (coronary artery disease) Current Visit: No Status: Chronic Assessment and plan: stable. c/w cardiac meds. Resume aspirin Qualifiers: Coronary Disease-Associated Artery/Lesion type: [place] artery [place] vs. transplanted heart: [place] heart Associated angina: without angina Qualified Code(s): I25.10 - Atherosclerotic heart disease of [place] coronary artery without angina pectoris (4) HTN (hypertension) Current Visit: No Status: Chronic Assessment and plan: Resume home anti-hypertensives Qualifiers: Hypertension type: essential hypertension Qualified Code(s): I10 - Essential (primary) hypertension (5) Type 2 diabetes mellitus Current Visit: No Status: Resolved Assessment and plan: Insulin sliding scale. Accucheks Qualifiers: Diabetes mellitus termite treater insulin use: without halfway use Diabetes mellitus complication status: without complication Qualified Code(s): E11.9 - Type 2 diabetes mellitus without complications (6) HLD (hyperlipidemia) Current Visit: No Status: Chronic Assessment and plan: c/w home med Qualifiers: Hyperlipidemia type: pure hypercholesterolemia Qualified Code(s): E78.00 - Pure hypercholesterolemia, unspecified; E78.0 - Pure hypercholesterolemia (7) Hypokalemia Current Visit: No Status: Acute Assessment and plan: Replace as needed (8) UTI (urinary tract infection) Current Visit: Yes Status: Acute Assessment and plan: f/u on cultures. continue with rocephin as started in the ED Qualifiers: Urinary tract infection type: site unspecified Hematuria presence: without hematuria Qualified Code(s): N39.0 - Urinary tract infection, site not specified (9) DVT prophylaxis Current Visit: Yes Status: Acute Assessment and plan: Hold eliquis for now. Will place on SQ heparin (10) Frailty Current Visit: Yes Status: Acute Assessment and plan: Patient is cachectic, frail and has had recurrent falls and lives alone. She needs to be placed likely. PTOT. - Time Spent With Patient Total time spent is greater than 50% in coordination of care (as documented) at patient's floor/unit and/or counseling patient: - Subjective Interval history: No acute events overnight - Constitutional Vitals: Temp Pulse Resp BP Pulse Ox 98.4 F 91 18 115/69 98 04/12/18 11:14 04/12/18 13:00 04/12/18 13:00 04/12/18 13:00 04/12/18 13:00 - Head Head exam: Present: atraumatic, normocephalic - Eye Eye exam: Present: PERRL, conjuntiva pink, sclera anicteric Pupils: Present: PERRL - Neck Neck exam general surgery: Present: supple, trachea midline. Absent: lymphadenopathy - Respiratory Respiratory exam: Present: CTAB. Absent: accessory muscle use, rales, rhonchi, wheezes - Cardiovascular Cardiovascular exam: Present: RRR, +S1, +S2. Absent: diastolic murmur, gallop, rubs, systolic murmur - GI/Abdominal GI/Abdominal exam: Present: normal bowel sounds, soft, no peritoneal signs. Absent: distended, tenderness - Extremities Exam Extremities exam: Present: warm, radial pulses palpable and symmetrical. Absent : calf tenderness, cyanotic, pedal edema - Neurological Exam Neurological exam: Present: CN II-XII intact, oriented X3, no focal deficits. Absent: pronater drift, facial droop, speech deficit - Skin Skin exam: Present: dry, intact Internal Medicine: Result - Labs CBC & Chem 7: 04/12/18 00:45 04/12/18 00:45 Labs: Short CBC 04/12/18 Range/Units 00:45 Hgb 8.1 L (11.5-15.4) g/dL Hct 27.2 L (35.3-44.9) % BMP 04/12/18 00:45 Sodium 139 Potassium 4.6 Chloride 109 H Carbon Dioxide 26 BUN 15 Creatinine 0.29 L Glucose 276 H Calcium 8.8 Cardiac Enzymes 04/12/18 Range/Units 00:45 Troponin I 0.03 (< 0.04) ng/mL - ABG Interpretation ABG results: PT/INR, D-dimer PT 13.0 Seconds (9.4-12.1) H 04/10/18 20:16 - Impressions Impressions Fluoroscopy 04/11/18 16:04 IMPRESSION: Intraprocedural fluoroscopic spot images as above. See separate procedure report for more information. D/ / 04/11/2018 18:01:30 Nic Wilburn MD / [email or web address] Interpreting Provider: Nic Wilburn MD Fluoroscopy 04/11/18 16:46 IMPRESSION: Intraprocedural fluoroscopic spot images as above. See separate procedure report for more information. D/ / 04/11/2018 18:08:08 Nic Wilburn MD / bcarter Interpreting Provider: Nic Wilburn MD - VTE Documentation of Mechanical Device: Intermittent pneumatic compression device Consult Discharge Plan - Plan Additional Instructions: [facility] DISCHARGE INSTRUCTIONS Dr. Ohara PROCEDURE PERFORMED Fixation of the bilateral hips Incision care -Daily dressing changes to the bilateral hips with dry gauze and either paper tape or medipore tape. -Avoid soaking wound in water (no hot tubs, bathtubs, swimming pools). -May shower after 2 weeks from surgery date. Carefully wash incision with soap and water. Gently pat it dry. Don't rub the incision, or apply creams or lotions. Sit on a shower stool when showering to keep from falling. Weight bearing status -Weightbearing as tolerated to the bilateral lower extremities. Medications -Pain medication per the discharging medical doctor -Blood thinner per the discharging medical doctor Other -Knee high ERIKA hose 23 hours per day -Consult physical and occupational therapy for mobilization. -Up to chair with assistance at least twice per day. -Follow up with your primary care physician to discuss testing for bone mineral density. Follow-up with Dr. Ohara at the office 2 weeks from the surgery date for a post operative evaluation. Call the office at [phone] to schedule appointment. Referrals: NONE,PCP [Primary Care Provider] -
[2018-04-12] MEDS: Diltiazem CD (24hr) 120 MG CAPSULE PO SCH (14:59)
[2018-04-12] MEDS: Apixaban 5 MG TABLET PO SCH (20:44)
[2018-04-12] MEDS ORDERED: Aspirin Enteric Coated 325 MG Tablet PO SCH (21:00)
[2018-04-13 03:00] LABS: Hematocrit 24.3 % (35.3-44.9); Hemoglobin 7.1 g/dL (11.5-15.4)
[2018-04-13] MEDS: *HR* OxyCODONE/APAP 5/325 TABLET PO PRN ×5 (04:41→22:54)
--- NOTE | 2018-04-13 08:25 | Electrocardiograph Report ---
[address] [address] Test Date: 2018-04-12 Pat Name: Didier Mcdaniels Department: 114 Room: [facility] Gender: F Gravel Roofer: [id number] : 1955 Requested By: [id number] Order Number: [id number] Reading MD: Georges Cavanaugh Measurements Intervals [place] Rate: 125 P: SC: 0 QRS: 20 QRSD: 85 T: 195 QT: 297 QTc: 371 Interpretive Statements ATRIAL FIBRILLATION WITH RAPID VENTRICULAR RESPONSE MODERATE VOLTAGE CRITERIA FOR LVH, CONSIDER NORMAL VARIANT ST DEVIATION AND MODERATE T-WAVE ABNORMALITY, CONSIDER LATERAL ISCHEMIA SIGNIFICANT ARTIFACT Electronically Signed On 04-13-2018 8:24:11 EDT by Georges Cavanaugh
--- NOTE | 2018-04-13 08:30 | Electrocardiograph Report ---
[address] [place], [place] [address] Test Date: 2018-04-12 Pat Name: Didier Mcdaniels Department: 114 Room: [facility] Gender: F Superintendent Transportation: : 1955 Requested By: Brittany Kasper Order Number: [id number] Reading MD: Georges Cavanaugh Measurements Intervals [place] Rate: 116 P: [place]: 0 QRS: 61 QRSD: 89 T: 267 QT: 292 QTc: 361 Interpretive Statements ATRIAL FIBRILLATION WITH RAPID VENTRICULAR RESPONSE ST DEVIATION AND MODERATE T-WAVE ABNORMALITY, CONSIDER INFERIOR AND LATERAL ISCHEMIA Electronically Signed On 04-13-2018 8:29:42 EDT by Georges Cavanaugh
[2018-04-13] MEDS: Diltiazem CD (24hr) 120 MG CAPSULE PO SCH (08:59)
[2018-04-13] MEDS: Apixaban 5 MG TABLET PO SCH ×2 (08:59→22:55)
[2018-04-13] MEDS: Furosemide 20 MG TABLET PO SCH (08:59)
[2018-04-13] MEDS: Pregabalin 75 MG CAPSULE PO SCH ×2 (09:00→22:55)
[2018-04-13] MEDS: methIMAzole 5 MG TABLET PO SCH (09:00)
[2018-04-13] MEDS: *HR* Digoxin 0.125 MG TABLET PO SCH (09:00)
[2018-04-13] MEDS: Lisinopril 20 MG TABLET PO SCH (09:00)
[2018-04-13] MEDS: Isosorbide MONOnitrate (24 HR) 30 MG TAB.ER.24H PO SCH (09:00)
[2018-04-13] MEDS: cefTRIAXone 1,000 MG in Water for inj. (sterile) 20 ML 10 ML IVP SCH (09:00)
[2018-04-13] MEDS: Insulin LISPRO 300 UNITS/3 ML VIAL SQ SCH ×4 (09:01→22:56)
--- NOTE | 2018-04-13 12:36 | Discharge Summary ---
- NOTES TO OUTPATIENT PROVIDER Notes to Outpatient Provider: Follow up with cardiology for afib. Cardizem started on this visit. F/U with orthopedic surgery Orders not resulted at time of discharge: Pending orders 04/11/18 16:04 XR hip complete RT [XR] Routine 04/11/18 16:46 XR hip complete LT [XR] Routine 04/14/18 04:00 Hemoglobin and Hematocrit [HEME] AM 0400 Date of Encounter: 04/13/18 Time of Encounter: 12:30 - Discharge Diagnosis (1) Afib Priority: Primary Status: Acute Assessment and Plan: 62 year old female with history of afib on anticoag, CHF with preserved EF, CAD status post CABG, HLD, HTN, iron deficiency, who presents here after a mechanical fall and found to have acute nondisplaced right femoral neck fracture and subacute to chronic nondisplaced left femoral neck fracture. She had a percutaneous screw fixation of the left hip and percutaneous screw fixation of the right hip on 04/11. She toleratd the procedures well without any acute complication. She was seen by PT who recommended discharge with home health. She went into A fib with rvr, and was started on a cardizem drip. She was successfully weaned off cardizem drip with addition of po cardizem to her regimen. She is also on digoxin. She was discharged in a stable condition Qualifiers: Atrial fibrillation type: unspecified Qualified Code(s): I48.91 - Unspecified atrial fibrillation (2) Anemia Priority: Secondary Status: Chronic Assessment and Plan: She got 1 unit of PRBC prior to discharge Qualifiers: Anemia type: iron deficiency Iron deficiency anemia type: unspecified iron deficiency Qualified Code(s): D50.9 - Iron deficiency anemia, unspecified (3) Femoral fracture Priority: Secondary Status: Acute Assessment and Plan: Ortho following. pOD #1/sp bilateral hip pinning. Continue physical therapy. Discharge planning Qualifiers: Encounter type: initial encounter Femur location: neck Fracture type: closed Laterality: right Qualified Code(s): S72.001A - Fracture of unspecified part of neck of right femur, initial encounter for closed fracture (4) CAD (coronary artery disease) Priority: Secondary Status: Chronic Qualifiers: Coronary Disease-Associated Artery/Lesion type: [place] artery [place] vs. transplanted heart: [place] heart Associated angina: without angina Qualified Code(s): I25.10 - Atherosclerotic heart disease of [place] coronary artery without angina pectoris (5) HTN (hypertension) Priority: Secondary Status: Chronic Qualifiers: Hypertension type: essential hypertension Qualified Code(s): I10 - Essential (primary) hypertension (6) Type 2 diabetes mellitus Priority: Secondary Status: Resolved Qualifiers: Diabetes mellitus terminal make up operator insulin use: without terminal make up operator use Diabetes mellitus complication status: without complication Qualified Code(s): E11.9 - Type 2 diabetes mellitus without complications (7) HLD (hyperlipidemia) Priority: Secondary Status: Chronic Qualifiers: Hyperlipidemia type: pure hypercholesterolemia Qualified Code(s): E78.00 - Pure hypercholesterolemia, unspecified; E78.0 - Pure hypercholesterolemia (8) Hypokalemia Priority: Secondary Status: Acute (9) UTI (urinary tract infection) Priority: Secondary Status: Acute Qualifiers: Urinary tract infection type: site unspecified Hematuria presence: without hematuria Qualified Code(s): N39.0 - Urinary tract infection, site not specified (10) DVT prophylaxis Priority: Secondary Status: Acute (11) Frailty Priority: Secondary Status: Acute Hospital course: Ms. Mcdaniels is a 62 year old female - Time Spent with Patient Total time spent providing and/or coordinating discharge services: - Discharge Medications Prescriptions: Apixaban [Eliquis] 5 mg PO BID #60 tablet Diltiazem CD (24hr) [Cardizem CD] 120 mg PO DAILY #30 cap.er.24h Home Medications: ALPRAZolam [Xanax 0.5 MG Tablet] 0.5 mg PO TID 04/11/18 [History] Aspirin 325 mg PO DAILY 04/11/18 [History] Bumetanide [Bumex] 1 mg PO DAILY 04/11/18 [History] Digoxin [Lanoxin] 0.125 mg PO DAILY 04/11/18 [History] Ferrous Sulfate [Iron] 325 mg PO BID 04/11/18 [History] Furosemide [Lasix] 20 mg PO DAILY 04/11/18 [History] Isosorbide MONOnitrate (24 HR) [Imdur] 30 mg PO DAILY 04/11/18 [History] Lisinopril [Zestril] 40 mg PO DAILY 04/11/18 [History] Nitroglycerin [Nitrostat] 0.4 mg SL Q5M PRN 04/11/18 [History] OxyCODONE Immed Rel [Roxicodone 10 MG] 10 mg PO QID 04/11/18 [History] Pregabalin [Lyrica] 75 mg PO BID 04/11/18 [History] Simvastatin [Zocor] 20 mg PO HS 04/11/18 [History] methIMAzole [Methimazole] 10 mg PO DAILY 04/11/18 [History] Apixaban [Eliquis] 5 mg PO BID #60 tablet 04/13/18 [Rx] Diltiazem CD (24hr) [Cardizem CD] 120 mg PO DAILY #30 cap.er.24h 04/13/18 [Rx] Allergies/Adverse Reactions: 3 Allergy/AdvReac Type Severity Reaction Status Date / Time hydrocodone [From Vicodin] Allergy Swelling Verified 09/20/17 15:38 of Lip/Tongue/Throat morphine AdvReac Rash Verified 11/20/17 16:57 Date of admission: 04/10/18 22:13 Primary care physician: PCP NONE Consults: 04/11/18 06:44 Consult to Machine Design Engineer [CONS] Routine Reason for SW Consult: Frequent falls at home. 04/11/18 17:33 Consult to Occupational Therapy [CONS] Routine Comment: Evaluate, develop and implement POC Reason for Consult: post hip surgery Does patient have active BEDREST order?: No Is patient medically & hemodynamically stable?: Yes Consult to Orthopedic Navigator [CONS] [CONS] Routine Consult to Physical Therapy [CONS] Routine Comment: Evaluate, develop and implement POC Reason for Consult: post hip surgery Does patient have active BEDREST order?: No Is patient medically & hemodynamically stable?: Yes Consult to Machine Design Engineer [CONS] Routine Reason for SW Consult: post -op hip fracture RT Post Op Consult [CONS] Routine - Constitutional Vitals: Temp Pulse Resp BP Pulse Ox 97.7 F 72 16 110/48 99 04/13/18 12:07 04/13/18 12:07 04/13/18 12:07 04/13/18 12:07 04/13/18 12:07 - Head Head exam: Present: atraumatic, normocephalic - Eye Eye exam: Present: PERRL, conjuntiva pink, sclera anicteric Pupils: Present: PERRL - Neck Neck exam general surgery: Present: supple, trachea midline. Absent: lymphadenopathy - Respiratory Respiratory exam: Present: CTAB. Absent: accessory muscle use, rales, rhonchi, wheezes - Cardiovascular Cardiovascular exam: Present: RRR, +S1, +S2. Absent: diastolic murmur, gallop, rubs, systolic murmur - GI/Abdominal GI/Abdominal exam: Present: normal bowel sounds, soft, no peritoneal signs. Absent: distended, tenderness - Extremities Exam Extremities exam: Present: warm, radial pulses palpable and symmetrical. Absent : calf tenderness, cyanotic, pedal edema - Neurological Exam Neurological exam: Present: CN II-XII intact, oriented X3, no focal deficits. Absent: pronater drift, facial droop, speech deficit - Skin Skin exam: Present: dry, intact - Patient Status Disposition: Home, Self-Care Condition: Good - Discharge Instructions Follow Up With: NONE,PCP [Primary Care Provider] - Forms: ED Satisfaction Letter Additional Instructions: RESIDENTIAL DISCHARGE INSTRUCTIONS Dr. Ohara PROCEDURE PERFORMED Fixation of the bilateral hips Incision care -Daily dressing changes to the bilateral hips with dry gauze and either paper tape or medipore tape. -Avoid soaking wound in water (no hot tubs, bathtubs, swimming pools). -May shower after 2 weeks from surgery date. Carefully wash incision with soap and water. Gently pat it dry. Don't rub the incision, or apply creams or lotions. Sit on a shower stool when showering to keep from falling. Weight bearing status -Weightbearing as tolerated to the bilateral lower extremities. Medications -Pain medication per the discharging medical doctor -Blood thinner per the discharging medical doctor Other -Knee high ERIKA hose 23 hours per day -Consult physical and occupational therapy for mobilization. -Up to chair with assistance at least twice per day. -Follow up with your primary care physician to discuss testing for bone mineral density. Follow-up with Dr. Ohara at the office 2 weeks from the surgery date for a post operative evaluation. Call the office at [phone] to schedule appointment. - VTE Documentation of Mechanical Device: Intermittent pneumatic compression device
--- NOTE | 2018-04-13 12:37 | Physician Discharge Referral ---
Home Health/Hosp Referral Info Transfer to: Home Health - Diagnosis (1) Afib Priority: Primary Status: Acute (2) Femoral fracture Status: Acute (3) CAD (coronary artery disease) Status: Chronic (4) HTN (hypertension) Status: Chronic (5) Type 2 diabetes mellitus Status: Resolved (6) HLD (hyperlipidemia) Status: Chronic (7) Hypokalemia Status: Acute (8) UTI (urinary tract infection) Status: Acute (9) DVT prophylaxis Status: Acute (10) Frailty Status: Acute - Respiratory Orders Smoking Cessation: Smoking cessation has been advised. For more information, call the [place] Tobacco Quit Line at 1-250-AYYM-NOW. - Diet/Nutrition Diet/Nutrition Orders: Cardiac - Activity Activity Orders: Ambulate - Services Needed Following services are medically necessary services: Nursing, Home Health Aide, Physical Therapy - Transfer Medications Prescriptions: Apixaban [Eliquis] 5 mg PO BID #60 tablet Diltiazem CD (24hr) [Cardizem CD] 120 mg PO DAILY #30 cap.er.24h Home Medications: ALPRAZolam [Xanax 0.5 MG Tablet] 0.5 mg PO TID 04/11/18 [History] Aspirin 325 mg PO DAILY 04/11/18 [History] Bumetanide [Bumex] 1 mg PO DAILY 04/11/18 [History] Digoxin [Lanoxin] 0.125 mg PO DAILY 04/11/18 [History] Ferrous Sulfate [Iron] 325 mg PO BID 04/11/18 [History] Furosemide [Lasix] 20 mg PO DAILY 04/11/18 [History] Isosorbide MONOnitrate (24 HR) [Imdur] 30 mg PO DAILY 04/11/18 [History] Lisinopril [Zestril] 40 mg PO DAILY 04/11/18 [History] Nitroglycerin [Nitrostat] 0.4 mg SL Q5M PRN 04/11/18 [History] OxyCODONE Immed Rel [Roxicodone 10 MG] 10 mg PO QID 04/11/18 [History] Pregabalin [Lyrica] 75 mg PO BID 04/11/18 [History] Simvastatin [Zocor] 20 mg PO HS 04/11/18 [History] methIMAzole [Methimazole] 10 mg PO DAILY 04/11/18 [History] Apixaban [Eliquis] 5 mg PO BID #60 tablet 04/13/18 [Rx] Diltiazem CD (24hr) [Cardizem CD] 120 mg PO DAILY #30 cap.er.24h 04/13/18 [Rx] Allergies/Adverse Reactions: 3 Allergy/AdvReac Type Severity Reaction Status Date / Time hydrocodone [From Vicodin] Allergy Swelling Verified 09/20/17 15:38 of Lip/Tongue/Throat morphine AdvReac Rash Verified 11/20/17 16:57 Certification: Further, I certify that my clinical findings support that this patient is homebound (i.e. absences from home require considerable and taxing effort and are for medical reasons or restorationist services or infrequently or short duration when for other reasons) because: Homebound Reason: Patient requires assistance of a person or device to safely leave home Attestation: My signature below is to certify that this patient is under my care and that I, or nurse practitioner, or a physician's clinical assistant professor working with me, has a face-to -face encounter with this patient.
[2018-04-13] MEDS ORDERED: 0.9 % Sodium Chloride 250 ML IVC ONE (13:07)
--- NOTE | 2018-04-13 15:16 | Orthopedics Progress Note ---
Date of Encounter: 04/13/18 Time of Encounter: 15:14 Subjective Principal diagnosis: Postoperative day #2, bilateral hip pinning Interval history: Patient is overall comfortable with moderate pain to the right side Bilateral hip dressings are clean dry intact Patient swelling to the right calf Positive Homans sign on the right side and negative on the left Grossly varus intact distally bilaterally Postoperative day #2, anemia Patient is awaiting one unit of packed blood cells Recommend a Doppler study to rule out a DVT Patient scheduled for discharge, pending results Objective Vital signs: Vital Signs Temp Pulse Resp BP Pulse Ox 04/13/18 12:07 97.7 F 72 16 110/48 99 04/13/18 08:32 97.7 F 68 17 111/63 99 04/13/18 04:43 98.5 F 72 18 116/58 100 04/12/18 23:40 97.8 F 105 14 89/51 100 04/12/18 18:39 98.4 F 67 15 106/51 99 04/12/18 16:07 97.6 F 63 18 84/44 99 Intake and Output 04/12/18 04/13/18 04/13/18 23:59 07:59 15:59 Intake Total 800 / 800 240 / 240 Balance 800 / 800 240 / 240 Intake: Oral 800 / 800 240 / 240 Other: Meal Lunch Percent of Meal Consumed 60% Stool Size Small Large Stool Consistency loose loose soft Stool Color Brown Pale # Voids 1 2 1 Blood Glucose* 170 119 - Labs CBC & BMP: 04/13/18 02:08 04/12/18 00:45 Labs: Abnormal lab results RBC 3.26 M/mcL (3.82-4.97) L 04/11/18 06:48 Hgb 7.1 g/dL (11.5-15.4) L 04/13/18 02:08 Hct 24.3 % (35.3-44.9) L 04/13/18 02:08 MCH 26.1 pg (28.0-33.3) L 04/11/18 06:48 MCHC 30.5 g/dL (31.6-35.5) L 04/11/18 06:48 RDW 25.5 % (11.5-14.5) H 04/11/18 06:48 Plt Count 138 K/mcL (140-400) L 04/11/18 06:48 Nucleated RBCs/100 WBC 0.5 /100 WBC (0) H 04/11/18 06:48 Platelet Estimate Slight Decrease (Normal) L 04/11/18 06:48 Hypochromasia Present (Not Present) A 04/11/18 06:48 Anisocytosis 3+ (Not Present) A 04/11/18 06:48 PT 13.0 Seconds (9.4-12.1) H 04/10/18 20:16 Chloride 109 mEq/L (98-107) H 04/12/18 00:45 Creatinine 0.29 mg/dL (0.60-1.20) L 04/12/18 00:45 BUN/Creatinine Ratio 52 (6-26) H 04/12/18 00:45 Glucose 276 mg/dL (70-105) H 04/12/18 00:45 POC Glucose 119 mg/dL (70-99) H 04/13/18 12:11 Urine Clarity Cloudy (Clear) A 04/10/18 17:48 Ur Specific [place] 1.027 (1.010-1.025) H 04/10/18 17:48 Urine Blood Trace (Negative) H 04/10/18 17:48 Urine Nitrite Positive (Negative) A 04/10/18 17:48 Ur Leukocyte Esterase Trace (Negative) H 04/10/18 17:48 Urine Microscopic WBC 5-15 per hpf (0-3) H 04/10/18 17:48 Ur Squamous Epith Cells Many per lpf (None-Few) H 04/10/18 17:48 Urine Bacteria Many per hpf (None-Few) H 04/10/18 17:48 Ur Culture Indicated? NO. (NO) A 04/10/18 17:48 - VTE Documentation of Mechanical Device: Intermittent pneumatic compression device Consult Discharge Plan - Plan Additional Instructions: INTERMEDIATE DISCHARGE INSTRUCTIONS Dr. Ohara PROCEDURE PERFORMED Fixation of the bilateral hips Incision care -Daily dressing changes to the bilateral hips with dry gauze and either paper tape or medipore tape. -Avoid soaking wound in water (no hot tubs, bathtubs, swimming pools). -May shower after 2 weeks from surgery date. Carefully wash incision with soap and water. Gently pat it dry. Don't rub the incision, or apply creams or lotions. Sit on a shower stool when showering to keep from falling. Weight bearing status -Weightbearing as tolerated to the bilateral lower extremities. Medications -Pain medication per the discharging medical doctor -Blood thinner per the discharging medical doctor Other -Knee high ERIKA hose 23 hours per day -Consult physical and occupational therapy for mobilization. -Up to chair with assistance at least twice per day. -Follow up with your primary care physician to discuss testing for bone mineral density. Follow-up with Dr. Ohara at the office 2 weeks from the surgery date for a post operative evaluation. Call the office at [phone] to schedule appointment. Referrals: NONE,PCP [Primary Care Provider] - Prescriptions: Apixaban [Eliquis] 5 mg PO BID #60 tablet Diltiazem CD (24hr) [Cardizem CD] 120 mg PO DAILY #30 cap.er.24h
[2018-04-14] MEDS: Acetaminophen 325 MG TABLET PO PRN (01:05)
[2018-04-14] MEDS: ALPRAZolam 0.5 MG TABLET PO SCH ×3 (01:05→14:45)
[2018-04-14 02:23] LABS: Hematocrit 26.6 % (35.3-44.9); Hemoglobin 8.1 g/dL (11.5-15.4)
[2018-04-14] MEDS: *HR* OxyCODONE/APAP 5/325 TABLET PO PRN ×3 (04:34→14:47)
[2018-04-14] MEDS: Insulin LISPRO 300 UNITS/3 ML VIAL SQ SCH ×2 (08:16→12:06)
[2018-04-14] MEDS: Diltiazem CD (24hr) 120 MG CAPSULE PO SCH (09:54)
[2018-04-14] MEDS: cefTRIAXone 1,000 MG in Water for inj. (sterile) 20 ML 10 ML IVP SCH (09:54)
[2018-04-14] MEDS: *HR* Digoxin 0.125 MG TABLET PO SCH (09:54)
[2018-04-14] MEDS: Pregabalin 75 MG CAPSULE PO SCH (09:54)
[2018-04-14] MEDS: Isosorbide MONOnitrate (24 HR) 30 MG TAB.ER.24H PO SCH (09:54)
[2018-04-14] MEDS: methIMAzole 5 MG TABLET PO SCH (09:54)
[2018-04-14] MEDS: Apixaban 5 MG TABLET PO SCH (09:54)
[2018-04-14] MEDS: Furosemide 20 MG TABLET PO SCH (09:55)
[2018-04-14] MEDS: Lisinopril 20 MG TABLET PO SCH (09:55)
[2018-04-14 11:48] VITALS: BP 124/72
== END 2018-04-14 16:36 | disposition home health service (06) | DRG 481 ==
LOC: 3NENU 17:09 → EMEROO 17:09 → SUATTDRO 22:13 → 3NENU 22:27
PROVIDERS: ADMIT Internal Medicine; ATTEND Internal Medicine

== ENCOUNTER 2018-07-19 05:38 | Inpatient (IN) ==
[2018-07-19] MEDS ORDERED: Aspirin 325 MG TABLET PO ONE (05:48)
[2018-07-19] MEDS ORDERED: Ondansetron 4 MG/2 ML VIAL IVP ONE ×2 (05:49→07:32)
[2018-07-19] MEDS ORDERED: Aspirin 81 MG TAB.CHEW PO ONE (05:49)
--- NOTE | 2018-07-19 05:53 | Emergency Department Note ---
Disposition Clinical Impression: A-fib Qualifiers: Atrial fibrillation type: unspecified Qualified Code(s): I48.91 - Unspecified atrial fibrillation Chest pain Qualifiers: Chest pain type: unspecified Qualified Code(s): R07.9 - Chest pain, unspecified Disposition: Admitted As Inpatient Condition: Good Forms: ED Satisfaction Letter Time of Disposition: 06:08 Chest Pain HPI - General Stated Complaint: SOB/Chest Pain Time Seen by Provider: 07/19/18 05:47 Vital Signs Reviewed: Yes Nursing Notes Reviewed: Yes - History of Present Illness HPI Narrative: 63-year-old female nonsmoker with known history of A. fib, and COPD, coronary artery disease rise by squad with complaint of chest pain and shortness of breath. She states her chest pain radiates to her back. She mentions she was sweating when it started. She states the pain started approximately 8 hours prior to her arrival here. She states it is worse with movement. Nothing is made better. Anoscopic with nausea and vomiting. Squad reported patient had been complaining of chest pain, worsened with increased heart rate, and a range of heart rate 92-140 with A. fib RVR. Patient has known history COPD, uses 3 L oxygen daily. Pt mentions she has chronic RLE swelling. Records show she has history of thyroid disease, and CAD. Patient states that she is on Coumadin. She denies any recent illness, hemoptysis, history of DVT PE, fever. - Related Data Home Medications Medication Instructions Recorded Confirmed ALPRAZolam [Xanax 0.5 MG Tablet] 0.5 mg PO TID 04/11/18 05/07/18 Aspirin 325 mg PO DAILY 04/11/18 05/07/18 Bumetanide [Bumex] 1 mg PO DAILY 04/11/18 05/07/18 Digoxin [Lanoxin] 0.125 mg PO DAILY 04/11/18 05/07/18 Ferrous Sulfate [Iron] 325 mg PO BID 04/11/18 05/07/18 Furosemide [Lasix] 20 mg PO DAILY 04/11/18 05/07/18 Isosorbide MONOnitrate (24 HR) 30 mg PO DAILY 04/11/18 05/07/18 [Imdur] Lisinopril [Zestril] 40 mg PO DAILY 04/11/18 05/07/18 Nitroglycerin [Nitrostat] 0.4 mg SL Q5M PRN 04/11/18 05/07/18 OxyCODONE Immed Rel [Roxicodone 10 10 mg PO QID 04/11/18 05/07/18 MG] Pregabalin [Lyrica] 75 mg PO BID 04/11/18 05/07/18 Simvastatin [Zocor] 20 mg PO HS 04/11/18 05/07/18 methIMAzole [Methimazole] 10 mg PO DAILY 04/11/18 05/07/18 Amitriptyline [Elavil] 25 mg PO HS 05/07/18 05/07/18 Amlodipine Besylate 2.5 mg PO DAILY 05/07/18 05/07/18 Venlafaxine HCl [Venlafaxine HCl 75 mg PO DAILY 05/07/18 05/07/18 ER] Previous Rx's Medication Instructions Recorded Apixaban [Eliquis] 5 mg PO BID #60 tablet 04/13/18 Diltiazem CD (24hr) [Cardizem CD] 120 mg PO DAILY #30 cap.er.24h 04/13/18 Allergies Allergy/AdvReac Type Severity Reaction Status Date / Time hydrocodone [From Vicodin] Allergy Swelling Verified 09/20/17 15:38 of Lip/Tongue/Throat morphine AdvReac Rash Verified 11/20/17 16:57 All systems ED: reviewed and negative except as stated. Review of Systems: As Per HPI Constitutional: Denies: fever, chills Eyes: Denies: vision change ENT ED: Denies: throat pain Cardiovascular: Reports: as per HPI Respiratory: Reports: as per HPI. Denies: hemoptysis, sputum production Gastrointestinal: Reports: as per HPI. Denies: abdominal pain Musculoskeletal: Reports: as per HPI Integumentary: Denies: rash Neurological: Denies: headache Psychiatric: Reports: anxiety Endocrine: Denies: fatigue Hematological/Lymphatic: Denies: easy bleeding Allergic/Immunologic: Denies: facial swelling Chest Pain PMH - Past Medical History Medical history: Reports: atrial fibrillation, CHF, COPD, coronary artery disease, hyperlipidemia, hypertension, osteoporosis, thyroid disease, other. Denies: diabetes Surgical history: Reports: cholecystectomy, coronary bypass (CABG), hysterectomy , other Psychiatric history: Reports: depression, other - Social History Smoking Status: Never smoker Alcohol use: Reports: none Drug use: Reports: none Physical Exam - General Limitations: no limitations General appearance: alert, in no apparent distress, anxious - Head Head exam: atraumatic, normocephalic - Eye Eye exam: Present: normal appearance, EOMI. Absent: conjunctival injection - ENT ENT exam: normal exam - Neck Neck exam: Present: normal inspection - Chest Chest inspection: Present: symmetric chest wall rise - Respiratory Respiratory exam: Absent: respiratory distress - Cardiovascular Cardiovascular exam: Present: tachycardia - Abdominal Exam Abdominal exam: Present: soft, Non-Tender - Extremities Exam Extremities exam: Present: other (mild RLE swelling). Absent: tenderness - Skin Skin exam: Present: warm, dry, intact, normal color, pallor. Absent: rash, cyanosis, diaphoresis Course Course Narrative: 63-year-old female nonsmoker with known history of A. fib, and COPD, coronary artery disease rise by squad with complaint of chest pain and shortness of breath. She states her chest pain radiates to her back. She states the pain started approximately 8 hours prior to her arrival here. She states it is worse with movement. Nothing is made better. Anoscopic with nausea and vomiting. Squad reported patient had been complaining of chest pain, worsened with increased heart rate, and a range of heart rate 92-140 with A. fib RVR. Patient has known history COPD, uses 3 L oxygen daily. Records show she has history of thyroid disease, and CAD. Patient states that she is on Coumadin. She denies any recent illness, hemoptysis, history of DVT PE, fever. Patient seen and examined. patient currently 100% on room air O2 sat. Workup initiated. ASA, antiemetics ordered. - Reevaluation(s) Reevaluation #1: EKG shows A. fib, heart rate 118. Pressure recent blood pressure 155/135. Discussed EKG with Dr. Lozano. Plan will be for Cardizem drip, no bolus due to age and BMI. Planning likely admission. Labs pending. At this times it is the end of my shift. Care of this patient will be transferred over to day shift provider Carleen Dumont PA-C. She will be responsible for further evaluation treatment and disposition of patient. At this time I feel that patient will likely be admitted, however please see Carleen's documentation for additional details on patient's final disposition. Time: 06:07 Vital Signs O2 Sat by Pulse Oximetry 100 07/19/18 05:38 Temperature 98.5 F 07/19/18 05:41 Pulse Rate 135 07/19/18 05:41 Respiratory Rate 24 07/19/18 05:41 Blood Pressure 179/104 07/19/18 05:41 O2 Sat by Pulse Oximetry 100 07/19/18 05:41 Oxygen Delivery Oxygen Delivery Room Air Chest Pain - EKG Data EKG attestation: Yes I reviewed and interpreted this EKG. Rate: tachycardia Rhythm: A.Fib S.B.AKenn - S.B.AKenn Situation: Demographics Background: Presenting Complaint Assessment: Vital Signs Recommendation: Barrier(s) to disposition S.B.A.RAugustus Report Given to: Carleen Dumont PA-C SAugustusBAugustusAKenn Repor Time: 06:08
[2018-07-19 06:38] LABS: Basophils % 0.3 %; Eosinophils % 0.1 %; Hematocrit 33.8 % (35.3-44.9); Hemoglobin 10.7 g/dL (11.5-15.4); Immature Granulocytes % 0.4 % (0-4); Lymphocytes % 14.2 %; Mean Corpuscular HGB Conc 31.7 g/dL (31.6-35.5); Mean Corpuscular Hemoglobin 29.8 pg (28.0-33.3); Mean Corpuscular Volume 94.2 fL (83.0-100.0); Mean Platelet Volume 10.9 fL (9.4-12.4); Monocytes # 0.4 K/mcL (0.0-1.3); Monocytes % 6.2 %; Neutrophils # 5.5 K/mcL (1.6-8.9); Platelet Count 217 K/mcL (140-400); Red Blood Count 3.59 M/mcL (3.82-4.97); Red Cell Distribution Width 16.6 % (11.5-14.5); Segmented Neutrophils % 78.8 %
[2018-07-19 06:44] LABS: INR 1.3; Prothrombin Time 15.1 Seconds (9.4-12.1)
[2018-07-19 06:47] LABS: Activated Partial Thrombo Time 30.5 Seconds (26.0-36.0)
[2018-07-19 07:16] LABS: Troponin I 0.03 ng/mL (< 0.04)
[2018-07-19 07:17] LABS: Blood Urea Nitrogen 9 mg/dL (8-23); Calcium 8.8 mg/dL (8.6-10.3); Carbon Dioxide 26 mEq/L (23-29); Chloride 106 mEq/L (98-107); Glucose 98 mg/dL (70-105); Osmolality,Calculated 289 (280-300); Potassium 3.2 mEq/L (3.5-5.1); Sodium 140 mEq/L (136-145); Thyroid Stimulating Hormone < 0.010 mcIU/mL (0.340-5.600)
--- NOTE | 2018-07-19 07:27 | Emergency Department Note ---
Disposition Clinical Impression: Hyperthyroidism A-fib Qualifiers: Atrial fibrillation type: unspecified Qualified Code(s): I48.91 - Unspecified atrial fibrillation Chest pain Qualifiers: Chest pain type: unspecified Qualified Code(s): R07.9 - Chest pain, unspecified Disposition: Admitted As Inpatient Condition: Good General Adult HPI - General Chief complaint: ED Arrhythmia/Palpitations Stated complaint: SOB/Chest Pain Time Seen by Provider: 07/19/18 05:47 Source: EMS Limitations: no limitations Nursing Notes Reviewed: Yes Vital Signs Reviewed: Yes - History of Present Illness HPI Narrative: Assumed care of this patient from Karlo Suárez PA-C at shift change. Please see his note for complete details of the history of present illness. Onset (ago): hour(s) Location: chest Radiation: back Pain Severity: moderate Pain Scale: 7 Quality: stabbing, aching Consistency: intermittent Improves with: nothing Worsens with: movement, other (deep inspiration) Associated symptoms: Reports: chest pain, diaphoresis, nausea/vomiting, shortness of breath. Denies: confusion, cough, fever/chills, headaches, loss of appetite, malaise, rash, seizure, syncope, weakness Treatments Prior to Arrival: none - Related Data Home Medications Medication Instructions Recorded Confirmed ALPRAZolam [Xanax 0.5 MG Tablet] 0.5 mg PO TID 04/11/18 05/07/18 Aspirin 325 mg PO DAILY 04/11/18 05/07/18 Bumetanide [Bumex] 1 mg PO DAILY 04/11/18 05/07/18 Digoxin [Lanoxin] 0.125 mg PO DAILY 04/11/18 05/07/18 Ferrous Sulfate [Iron] 325 mg PO BID 04/11/18 05/07/18 Furosemide [Lasix] 20 mg PO DAILY 04/11/18 05/07/18 Isosorbide MONOnitrate (24 HR) 30 mg PO DAILY 04/11/18 05/07/18 [Imdur] Lisinopril [Zestril] 40 mg PO DAILY 04/11/18 05/07/18 Nitroglycerin [Nitrostat] 0.4 mg SL Q5M PRN 04/11/18 05/07/18 OxyCODONE Immed Rel [Roxicodone 10 10 mg PO QID 04/11/18 05/07/18 MG] Pregabalin [Lyrica] 75 mg PO BID 04/11/18 05/07/18 Simvastatin [Zocor] 20 mg PO HS 04/11/18 05/07/18 methIMAzole [Methimazole] 10 mg PO DAILY 04/11/18 05/07/18 Amitriptyline [Elavil] 25 mg PO HS 05/07/18 05/07/18 Amlodipine Besylate 2.5 mg PO DAILY 05/07/18 05/07/18 Venlafaxine HCl [Venlafaxine HCl 75 mg PO DAILY 05/07/18 05/07/18 ER] Previous Rx's Medication Instructions Recorded Apixaban [Eliquis] 5 mg PO BID #60 tablet 04/13/18 Diltiazem CD (24hr) [Cardizem CD] 120 mg PO DAILY #30 cap.er.24h 04/13/18 Allergies Allergy/AdvReac Type Severity Reaction Status Date / Time hydrocodone [From Vicodin] Allergy Swelling Verified 09/20/17 15:38 of Lip/Tongue/Throat morphine AdvReac Rash Verified 11/20/17 16:57 All systems ED: reviewed and negative except as stated. Review of Systems: As Per HPI Constitutional: Denies: fever, chills Eyes: Denies: vision change ENT ED: Denies: throat pain Cardiovascular: Reports: as per HPI Respiratory: Reports: as per HPI. Denies: hemoptysis, sputum production Gastrointestinal: Reports: as per HPI. Denies: abdominal pain Musculoskeletal: Reports: as per HPI Integumentary: Denies: rash Neurological: Denies: headache Psychiatric: Reports: anxiety Endocrine: Denies: fatigue Hematological/Lymphatic: Denies: easy bleeding Allergic/Immunologic: Denies: facial swelling Past Medical History - Past Medical History Attestation: Yes The following information was validated with the patient. Source: patient Medical history: Reports: atrial fibrillation, CHF, COPD, coronary artery disease, hyperlipidemia, hypertension, osteoporosis, thyroid disease, other. Denies: diabetes Surgical history: Reports: cholecystectomy, coronary bypass (CABG), hysterectomy , other Psychiatric history: Reports: depression, other - Social History Smoking Status: Never smoker Smokeless Tobacco Status: No Alcohol use: Reports: none Drug use: Reports: none Physical Exam - General Limitations: no limitations General appearance: alert, in no apparent distress, anxious - Head Head exam: atraumatic, normal inspection - Eye Eye exam: Present: normal appearance, PERRL. Absent: scleral icterus, conjunctival injection, periorbital swelling - ENT ENT exam: mucous membranes dry - Neck Neck exam: Present: normal inspection, full ROM, trachea midline. Absent: meningismus, thyromegaly - Chest Chest inspection: Present: symmetric chest wall rise, other (WHSS). Absent: tenderness - Respiratory Respiratory exam: Present: respiratory distress (Tachypneic - 28). Absent: wheezes, stridor, accessory muscle use, prolonged expiratory phase - Expanded Respiratory Exam Location: rales: Left, Right, Lower (mild) - Cardiovascular Cardiovascular exam: Present: tachycardia, irregular rhythm - Abdominal Exam Abdominal exam: Present: soft, Non-Tender - Extremities Exam Extremities exam: Present: normal capillary refill, pedal edema (Slight, right) , other (Right lower leg edema, 1+ nonpitting). Absent: tenderness, joint swelling, calf tenderness - Expanded Lower Extremity Exam Neurovascular/Tendon exam: Present: normal capillary refill. Absent: pulse deficit, motor deficit, sensory deficit Gait: observed and normal (Patient ambulated from the bed to a bedside commode and back without assistance) - Back Exam Back exam: Present: normal inspection - Neurological Exam Neurological exam: Present: alert, oriented X3, CN II-XII intact, normal gait - Psychiatric Psychiatric exam: Present: normal affect, anxious - Skin Skin exam: Present: warm, dry, intact, normal color Course Course Narrative: Care of this patient, assumed from Karlo Suárez PA-C at shift change. Report received is that the patient has history of A. fib on Eliquis as well as coronary artery disease and hyperthyroidism. She was brought in by squad for chest pain and shortness of breath. Heart rate was elevated at home as well. She states that she has been taking her medications as prescribed and denies any new medications, new foods, supplements or increased caffeine intake. For complete details of her history of present illness please see Karlo's note. Upon initial assessment patient is still tachycardic. Cardizem drip has been ordered. She appears very anxious and is tachypneic. She has mild crackles in the bases bilaterally. No wheezes, no use of accessory muscles. She has mild right lower leg edema. Per review of her past records, this is unchanged. Patient states that it is in fact "always swollen". She has history of right hip fracture several months ago. She had a DVT study done here a month ago which was negative. She denies missing any doses of her anticoagulant. She also denies cough, fever, chills, dizziness, vertigo, syncope, fatigue or malaise. EKG shows A. fib with RVR. She does have a millimeter of ST elevation in V2, however this is unchanged compared to previous. EKG was reviewed with the attending at the time. Chest x-ray shows a small pleural effusion. Superimposed aspiration or pneumonia cannot be excluded. Patient does not present with symptoms or findings consistent with pneumonia. She has mild crackles in the bases bilaterally. She is afebrile and does not describe a cough or malaise. Her white blood cell count is normal. Patient responded well to the Cardizem drip. Heart rate is in the 70-80 range. Blood pressure is 140 systolic. She is sitting up watching TV, is able to speak in complete sentences without pausing to take a breath. She states that she is feeling better as well. Patient's TSH is low and T4 is high. She does have history of hyperthyroidism. She states that she takes medication for this. However, I have been unable to find out what medication she is taking. She does not currently have tenderness or a palpable mass in the neck. No obvious thyroid enlargement. Temperature is normal. Additionally, she responded well to the Cardizem drip. Now that her rate is controlled. She no longer appears anxious and is no longer tachypneic. - Reevaluation(s) Reevaluation #2: Pain much better per patient. She is breathing normally. Vitals are all normal now, stable x past 30 min. Time: 09:56 - Consultations Consultation #1: Case discussed with the hospitalist. He requests that cardiology be consult it for assistance with medication. Specifically, he wanted to know if a beta delfino would be better. Given the patient's history of hyperthyroidism. Case was discussed with Dr. Marie. He states that since the patient responded well to the Cardizem, it is well to continue the Cardizem for now. Decision to change her by mouth meds to a beta delfino will be considered. He will see the patient today. Vital Signs O2 Sat by Pulse Oximetry 100 08/31/18 05:38 Temperature 98.5 F 07/19/18 05:41 Pulse Rate 74 07/19/18 09:48 Respiratory Rate 20 07/19/18 09:48 Blood Pressure 147/83 07/19/18 09:48 O2 Sat by Pulse Oximetry 100 07/19/18 09:48 Oxygen Delivery Oxygen Delivery Room Air Medical Decision Making - Medical Records Medical records reviewed: Yes I reviewed the patient's medical records. - Lab Data Lab results reviewed: Yes I reviewed the patient's lab results. Lab results narrative: Laboratory Last Values WBC 7.0 K/mcL (4.3-11.1) 07/19/18 06:05 RBC 3.59 M/mcL (3.82-4.97) L 07/19/18 06:05 Hgb 10.7 g/dL (11.5-15.4) L 07/19/18 06:05 Hct 33.8 % (35.3-44.9) L 07/19/18 06:05 MCV 94.2 fL (83.0-100.0) 07/19/18 06:05 MCH 29.8 pg (28.0-33.3) 07/19/18 06:05 MCHC 31.7 g/dL (31.6-35.5) 07/19/18 06:05 RDW 16.6 % (11.5-14.5) H 07/19/18 06:05 Plt Count 217 K/mcL (140-400) 07/19/18 06:05 MPV 10.9 fL (9.4-12.4) 07/19/18 06:05 Immature Gran % 0.4 % (0-4) 07/19/18 06:05 Seg Neutrophils % 78.8 % 07/19/18 06:05 Lymphocytes % 14.2 % 07/19/18 06:05 Monocytes % 6.2 % 07/19/18 06:05 Eosinophils % 0.1 % 07/19/18 06:05 Basophils % 0.3 % 07/19/18 06:05 Neutrophils # 5.5 K/mcL (1.6-8.9) 07/19/18 06:05 Lymphocytes # 1.0 K/mcL (0.6-4.6) 07/19/18 06:05 Monocytes # 0.4 K/mcL (0.0-1.3) 07/19/18 06:05 Eosinophils # 0.0 K/mcL (0.0-0.6) 07/19/18 06:05 Basophils # 0.0 K/mcL (0.0-0.2) 07/19/18 06:05 PT 15.1 Seconds (9.4-12.1) H 07/19/18 06:05 INR 1.3 07/19/18 06:05 APTT 30.5 Seconds (26.0-36.0) 07/19/18 06:05 Sodium 140 mEq/L (136-145) 07/19/18 06:05 Potassium 3.2 mEq/L (3.5-5.1) L 07/19/18 06:05 Chloride 106 mEq/L (98-107) 07/19/18 06:05 Carbon Dioxide 26 mEq/L (23-29) 07/19/18 06:05 BUN 9 mg/dL (8-23) 07/19/18 06:05 Creatinine < 0.20 mg/dL (0.60-1.20) L 07/19/18 06:05 Est GFR ( Amer) TNP 07/19/18 06:05 Est GFR (Non-Af Amer) TNP 07/19/18 06:05 BUN/Creatinine Ratio TNP 07/19/18 06:05 Glucose 98 mg/dL (70-105) 07/19/18 06:05 Calculated Osmolality 289 (280-300) 07/19/18 06:05 Calcium 8.8 mg/dL (8.6-10.3) 07/19/18 06:05 Troponin I 0.03 ng/mL (< 0.04) 07/19/18 06:05 TSH < 0.010 mcIU/mL (0.340-5.600) L 07/19/18 06:05 Free T4 4.17 ng/dl (0.70-2.00) H 07/19/18 06:05 Result diagrams: 07/19/18 06:05 07/19/18 06:05 Lab Results 07/19/18 07/19/18 07/19/18 Range/Units 06:05 06:05 06:05 WBC 7.0 (4.3-11.1) K/mcL RBC 3.59 L (3.82-4.97) M/mcL Hgb 10.7 L (11.5-15.4) g/dL Hct 33.8 L (35.3-44.9) % MCV 94.2 (83.0-100.0) fL MCH 29.8 (28.0-33.3) pg MCHC 31.7 (31.6-35.5) g/dL RDW 16.6 H (11.5-14.5) % Plt Count 217 (140-400) K/mcL MPV 10.9 (9.4-12.4) fL Immature Gran % 0.4 (0-4) % Seg Neutrophils % 78.8 % Lymphocytes % 14.2 % Monocytes % 6.2 % Eosinophils % 0.1 % Basophils % 0.3 % Neutrophils # 5.5 (1.6-8.9) K/mcL Lymphocytes # 1.0 (0.6-4.6) K/mcL Monocytes # 0.4 (0.0-1.3) K/mcL Eosinophils # 0.0 (0.0-0.6) K/mcL Basophils # 0.0 (0.0-0.2) K/mcL PT 15.1 H (9.4-12.1) Seconds INR 1.3 APTT 30.5 (26.0-36.0) Seconds Sodium 140 (136-145) mEq/L Potassium 3.2 L (3.5-5.1) mEq/L Chloride 106 (98-107) mEq/L Carbon Dioxide 26 (23-29) mEq/L BUN 9 (8-23) mg/dL Creatinine < 0.20 L (0.60-1.20) mg/dL Est GFR ( Amer) TNP Est GFR (Non-Af Amer) TNP BUN/Creatinine Ratio TNP Glucose 98 (70-105) mg/dL Calculated Osmolality 289 (280-300) Calcium 8.8 (8.6-10.3) mg/dL Troponin I 0.03 (< 0.04) ng/mL TSH < 0.010 L (0.340-5.600) mcIU/mL Free T4 4.17 H (0.70-2.00) ng/dl - Radiology Data Radiology results reviewed: Yes I reviewed the patient's radiology results. Chest X-Ray 07/19/18 05:48 IMPRESSION: Small right pleural effusion with basilar opacities favored to reflect atelectasis. Superimposed aspiration or pneumonia could have a similar appearance in the appropriate clinical context. D/ / Gage Vick / Gage Vick Interpreting Provider: Gage Vick Attestation Statement - Attestation Attestation: I have personally performed a face to face evaluation on this patient. I have reviewed and agree with the care plan. History and Exam by me shows: Atrial fibrillation with RVR appropriate for rate control.
[2018-07-19] MEDS ORDERED: *HR* FentaNYL (PF) 100 MCG/2 ML VIAL IVP ONE (07:32)
[2018-07-19] MEDS ORDERED: 0.9 % Sodium Chloride 1,000 ML IVC ONE (07:36)
[2018-07-19] MEDS ORDERED: Isovue-370 500 ML INFUS..BTL IV ONE (10:52)
[2018-07-19] MEDS ORDERED: Naloxone 0.4 MG/ML INJ IVP PRN (11:03)
--- NOTE | 2018-07-19 11:07 | Cardiology Consult Note ---
Date of Encounter: 07/19/18 Time of Encounter: 12:51 Assessment and Plan (1) Chest pain Current Visit: Yes Status: Acute Qualifiers: Chest pain type: unspecified Qualified Code(s): R07.9 - Chest pain, unspecified (2) Hyperthyroidism Current Visit: Yes Status: Chronic (3) Atrial fibrillation with RVR Current Visit: Yes Status: Acute Discussion w patient/family: Pts afib is currently rate controlled with Cardizem and she is complaining of less chest pain. She was also found to have pulmonary effusions and elevated liver enzymes and bilirubin. Pulmonary effusions and gallstones or other obstructive liver pathology can also cause chest pain similar to what the patient is describing. Continued work up on the liver pathology would be beneficial. Due to her concurrent hyperthyroidism, rate control would best be achieved with a Beta-delfino, preferably Propanolol. However this would be a poor medication for her to take with her COPD. Therefore we suggest a restart of her home medication methimazole and rate control to be continued with Cardizem. Also pt should continue home Eliquis for anticoagulation. Pt should continue to follow her afib after removal of thyroid to check for resolution. The assessment and plan as outlined above was discussed with the patient and/or family members who expressed understanding and agreement. All questions were answered. Thank you for involving us in the care of your patient. Please call with any questions. History of Present Illness Consult date: 07/19/18 Requesting physician: Carleen Dumont Consult reason: Afib w/ RVR, chest pain, hyperthyroidism Chief complaint: chest pain History of present illness: Ms. Mcdaniels is a 63 year old female who presented to the ED with the complaint of severe chest pain with palpitations that started last night at 2100. She was sitting watching TV when this occurred. She states she also became more SOB than her baseline and had to increase her oxygen to 3.5L but it did not help. She states she has had chest pain similar to this before and usually takes SL nitro to relieve it. She currently complains of "chest pain" that is in her epigastric area, as well as rib pain and back pain. Her chest pain has decreased since presentation to the ED and rate control of her afib, but she states it still hurts at a 6/10, especially when she breathes. She has a PMHx of afib w/ RVR, hyperthyroidism, CABG x3, and COPD. She states she has been intermittently taking her hyperthyroidism medication but cannot remember what it is called. She is scheduled to have her thyroid removed Aug 08. She is not currently taking any Beta-blockers for rate management of her afib or control of her hyperthyroidism. Past Med Surg Social Fam HX - Past Medical History Medical history: atrial fibrillation, CHF, COPD, coronary artery disease, hyperlipidemia, hypertension, osteoporosis, thyroid disease, other Additional medical history: PITTING EDEMA Psychiatric history: depression, other - Past Surgical History Surgical History: cholecystectomy, coronary bypass (CABG), hysterectomy, other Additional surgical history: 3 vessel Bypass. 9 Coronary stents. GASTRIC BYPASS. b/l hip surgeries - Social History Smoking Status: Never smoker Smokeless Tobacco Status: No Alcohol use: none Drug use: none - Family History Father Family Member Ethnicity: Non- Living Status: Hx Family Cardiac Disorders: Yes ([place]) Brother Family Member Ethnicity: Non- Living Status: Sister Family Member Ethnicity: Non- Twin of Family Member: Yes, Identical Living Status: Hx Family Cardiac Disorders: Yes (afib) Hx Family Cancer: Yes (Colon) Mother Adopted: No Family Member Ethnicity: Non- Living Status: Hx Family Cardiac Disorders: Yes ([place]) Hx Family Respiratory Disorders: No Hx Family Cancer: Yes (Colon ) Hx Family GI Disorders: Yes (Bowel Cancer) Hx Family Endocrine Disorder: Yes (DM) Hx Family Neuromuscular Disorders: No Hx Family Neurologic Disorders: No Hx Family HEENT Disorders: No Hx Family Autoimmune Disorders: No Medications and Allergies ALPRAZolam [Xanax 0.5 MG Tablet] 0.5 mg PO TID 04/11/18 [History] Aspirin 325 mg PO DAILY 04/11/18 [History] Bumetanide [Bumex] 1 mg PO DAILY 04/11/18 [History] Digoxin [Lanoxin] 0.125 mg PO DAILY 04/11/18 [History] Ferrous Sulfate [Iron] 325 mg PO BID 04/11/18 [History] Furosemide [Lasix] 20 mg PO DAILY 04/11/18 [History] Isosorbide MONOnitrate (24 HR) [Imdur] 30 mg PO DAILY 04/11/18 [History] Lisinopril [Zestril] 40 mg PO DAILY 04/11/18 [History] Nitroglycerin [Nitrostat] 0.4 mg SL Q5M PRN 04/11/18 [History] OxyCODONE Immed Rel [Roxicodone 10 MG] 10 mg PO QID 04/11/18 [History] Pregabalin [Lyrica] 75 mg PO BID 04/11/18 [History] Simvastatin [Zocor] 20 mg PO HS 04/11/18 [History] methIMAzole [Methimazole] 10 mg PO DAILY 04/11/18 [History] Apixaban [Eliquis] 5 mg PO BID #60 tablet 04/13/18 [Rx] Diltiazem CD (24hr) [Cardizem CD] 120 mg PO DAILY #30 cap.er.24h 04/13/18 [Rx] Amitriptyline [Elavil] 25 mg PO HS 05/07/18 [History] Amlodipine Besylate 2.5 mg PO DAILY 05/07/18 [History] Venlafaxine HCl [Venlafaxine HCl ER] 75 mg PO DAILY 05/07/18 [History] 3 Allergy/AdvReac Type Severity Reaction Status Date / Time hydrocodone [From Vicodin] Allergy Swelling Verified 09/20/17 15:38 of Lip/Tongue/Throat morphine AdvReac Rash Verified 11/20/17 16:57 All Systems Review: The remainder of the systems were reviewed and are negative - Constitutional Constitutional: weakness, weight loss, no fatigue, no fever(s), no headache(s) - Cardiovascular Cardiovascular: chest pain at rest, dyspnea at rest, dyspnea on exertion, palpitations, rapid heart rate, no chest pain with exertion, no leg edema, no syncope - Respiratory Respiratory: cough, dyspnea, wheezing - Gastrointestinal Gastrointestinal: no abdominal pain, no constipation, no diarrhea, no nausea - Genitourinary Genitourinary: no dysuria, no hematuria - Musculoskeletal Musculoskeletal: back pain, no muscle cramps, no muscle weakness - Integumentary Integumentary: no erythema, no rash, no unusual bruising - Neurological Neurological: no dizziness, no focal weakness, no numbness - Hematological/Lymphatic Hematologic/Lymphatic: no easy bleeding, no easy bruising Physical Examination Vital Signs, Last 4 Hours Pulse Resp BP Pulse Ox 07/19/18 10:56 91 131/96 99 07/19/18 09:48 74 20 147/83 100 General: Conversant, No Apparent Distress HEENT: Atraumatic, Normocephaly, Mucus Membranes Moist Neck: No JVD, Normal carotid pulses Cardiac: Normal S1 and S2, No Murmur, Other (irregular rhythm, regular rate) Lungs: Other (Diffuse wheezing heard throughout, tachypnic) Neuro: Alert and responsive, No focal deficits noted Abdomen: Soft, Non-Tender Skin: No rashes noted on visualized skin Musculoskeletal: Other (Chest diffusely tender to palpation) Extremities: No Cyanosis, No Edema, Normal Pulses Results 07/19/18 06:05 07/19/18 06:05 Consult Discharge Plan - Plan Referrals: Arslan Victoria, [employer] [Primary Care Provider] -
--- NOTE | 2018-07-19 11:13 | Internal Med History&Physical ---
Date of Encounter: 07/19/18 Time of Encounter: 11:06 Internal Medicine - H&P: HPI History of present illness: Ms. Mcdaniels is a 63 year old female with history of CAD s/p CABG, diastolic heart failure, COPD on 3 L O2 at home, atrial fibrillation, hypertension presented for chest and abdominal pain that occurred since 9 pm last night. Patient describes this pain as under her ribs. Pain severe and radiates to her shoulders and back. She states it feels like different pain than her prior NH. She has hyperthyroidism on methimazole. Her last Echocardiogram was 07/2017 that showed LVEF 60% without significant structure or wall motion abnormalities. A cardiac cather was done 01/12/2016 showing severe two vessel disease. She has had no change in bowels. She denies fevers/chills, she has SOB at her baseline. She admits to palpitations. In the ED she was found to be tachycardic with HR in 135, she was started on Cardizem drip and HR came down to 70s. A chest x-ray showed small pleural effusion otherwise no acute process. TSH was low at <0.010 and Free T4 was elevated at 4.17. Past Med Surg Social Fam HX - Past Medical History Medical history: atrial fibrillation, CHF, COPD, coronary artery disease, hyperlipidemia, hypertension, osteoporosis, thyroid disease, other Additional medical history: PITTING EDEMA Psychiatric history: depression, other - Past Surgical History Surgical History: cholecystectomy, coronary bypass (CABG), hysterectomy, other Additional surgical history: 3 vessel Bypass. 9 Coronary stents. GASTRIC BYPASS. b/l hip surgeries - Social History Smoking Status: Never smoker Smokeless Tobacco Status: No Alcohol use: none Drug use: none - Family History Father Family Member Ethnicity: Non- Living Status: Hx Family Cardiac Disorders: Yes ([place]) Brother Family Member Ethnicity: Non- Living Status: Sister Family Member Ethnicity: Non- Twin of Family Member: Yes, Identical Living Status: Hx Family Cardiac Disorders: Yes (afib) Hx Family Cancer: Yes (Colon) Mother Adopted: No Family Member Ethnicity: Non- Living Status: Hx Family Cardiac Disorders: Yes ([place]) Hx Family Respiratory Disorders: No Hx Family Cancer: Yes (Colon ) Hx Family GI Disorders: Yes (Bowel Cancer) Hx Family Endocrine Disorder: Yes (DM) Hx Family Neuromuscular Disorders: No Hx Family Neurologic Disorders: No Hx Family HEENT Disorders: No Hx Family Autoimmune Disorders: No Internal Medicine - H&P: Meds ALPRAZolam [Xanax 0.5 MG Tablet] 0.5 mg PO TID 04/11/18 [History] Aspirin 325 mg PO DAILY 04/11/18 [History] Bumetanide [Bumex] 1 mg PO DAILY 04/11/18 [History] Digoxin [Lanoxin] 0.125 mg PO DAILY 04/11/18 [History] Ferrous Sulfate [Iron] 325 mg PO BID 04/11/18 [History] Furosemide [Lasix] 20 mg PO DAILY 04/11/18 [History] Isosorbide MONOnitrate (24 HR) [Imdur] 30 mg PO DAILY 04/11/18 [History] Lisinopril [Zestril] 40 mg PO DAILY 04/11/18 [History] Nitroglycerin [Nitrostat] 0.4 mg SL Q5M PRN 04/11/18 [History] OxyCODONE Immed Rel [Roxicodone 10 MG] 10 mg PO QID 04/11/18 [History] Pregabalin [Lyrica] 75 mg PO BID 04/11/18 [History] Simvastatin [Zocor] 20 mg PO HS 04/11/18 [History] methIMAzole [Methimazole] 10 mg PO DAILY 04/11/18 [History] Apixaban [Eliquis] 5 mg PO BID #60 tablet 04/13/18 [Rx] Diltiazem CD (24hr) [Cardizem CD] 120 mg PO DAILY #30 cap.er.24h 04/13/18 [Rx] Amitriptyline [Elavil] 25 mg PO HS 05/07/18 [History] Amlodipine Besylate 2.5 mg PO DAILY 05/07/18 [History] Venlafaxine HCl [Venlafaxine HCl ER] 75 mg PO DAILY 05/07/18 [History] 3 Allergy/AdvReac Type Severity Reaction Status Date / Time hydrocodone [From Vicodin] Allergy Swelling Verified 09/20/17 15:38 of Lip/Tongue/Throat morphine AdvReac Rash Verified 11/20/17 16:57 All Systems PM: A 10-system review of systems was performed and is negative for pertinent findings except as documented above in the HPI. - Constitutional Constitutional: no chills, no fever(s), no night sweats - Cardiovascular Cardiovascular ROS IM: chest pain, dyspnea (at baseline), edema (at baseline of lower extremities per patient), palpitations, no diaphoresis - Respiratory Respiratory: wheezing - Gastrointestinal Gastrointestinal: abdominal pain, loose stools (constant, no acute complaints), no bloating, no change in bowel habits, no change in stool character, no coffee ground emesis, no constipation, no cramping, no heartburn, no hematemesis, no hematochezia, no nausea - Genitourinary Genitourinary: no dysuria - Musculoskeletal Musculoskeletal ROS IM: no numbness, no tingling - Neurological Neurological ROS: no confusion, no convulsions, no focal weakness, no numbness, no tingling, no tremor(s) - Constitutional Vitals: Temp Pulse Resp BP Pulse Ox 98.5 F 91 20 131/96 99 07/19/18 05:41 07/19/18 10:56 07/19/18 09:48 07/19/18 10:56 07/19/18 10:56 Exam: Gen: NAD, AAO x3 CVS: irregularly irregular rate, rhythm Lungs: Poor inspiratory effort, faint wheezing, decreased breath sounds at bases. Abdomen: Soft, + Tenderness in RUQ and LUQ, normal bowel sounds, no rigidity, no rebound tenderness Ext: 1+ bipedal edema. Internal Med - H&P Results - Labs CBC & Chem 7: 07/19/18 06:05 07/19/18 06:05 - Assessment and plan (1) Chest pain Current Visit: Yes Status: Acute Assessment and plan: Known history of CAD, chest pain also described by patient as an epigastric pain that radiates towards her back. She is easily tender to palpation. There is no reproducible chest pain, only abdominal pain. She has poor appetite and her SOB is at baseline. Suspect atypical chest pain. With radiation towards her back, will obtain CTA chest/abdomen, rule out dissection and abdominal etiologies. Also obtain lipase, LA, LFTs, as hepatobiliary/pancreatic process can also cause radiation towards back. Cycle troponin. Cardiology consulted, recommendations appreciated. Qualifiers: Chest pain type: unspecified Qualified Code(s): R07.9 - Chest pain, unspecified (2) Epigastric pain Current Visit: Yes Status: Acute Assessment and plan: Plan as above. (3) Hyperthyroidism Current Visit: Yes Status: Chronic Assessment and plan: On methimazole. (4) Atrial fibrillation with RVR Current Visit: No Status: Acute Assessment and plan: On Cardizem drip and HR improved to normal limits. Cardiology consulted, recommendations appreciated. Continue anticoagulant once home medications are verified. It appears she takes Eliquis. (5) Decubitus ulcer of coccygeal region, stage 2 Current Visit: No Status: Acute Assessment and plan: Present on admission (6) Hypokalemia Current Visit: No Status: Acute Assessment and plan: Replace (7) CAD (coronary artery disease) Current Visit: No Status: Chronic Assessment and plan: Resume home medications. Qualifiers: Coronary Disease-Associated Artery/Lesion type: [place] artery [place] vs. transplanted heart: [place] heart Associated angina: without angina Qualified Code(s): I25.10 - Atherosclerotic heart disease of [place] coronary artery without angina pectoris (8) COPD (chronic obstructive pulmonary disease) Current Visit: No Status: Chronic Assessment and plan: Resume home medications. Also put Xopenex as patient is having some faint wheezing, Qualifiers: COPD type: unspecified COPD Qualified Code(s): J44.9 - Chronic obstructive pulmonary disease, unspecified (9) Chronic respiratory failure with hypoxia Current Visit: No Status: Chronic Assessment and plan: Patient does have faint wheezing, would benefit from 5 day burst Prednisone 20 mg (10) HLD (hyperlipidemia) Current Visit: No Status: Chronic Assessment and plan: Resume home medication.s Qualifiers: Hyperlipidemia type: pure hypercholesterolemia Qualified Code(s): E78.00 - Pure hypercholesterolemia, unspecified; E78.0 - Pure hypercholesterolemia (11) HTN (hypertension) Current Visit: No Status: Chronic Assessment and plan: Resume home medications when able. Qualifiers: Hypertension type: essential hypertension Qualified Code(s): I10 - Essential (primary) hypertension (12) MDD (major depressive disorder) Current Visit: No Status: Acute Qualifiers: Major depression recurrence: recurrent Active/Remission status: currently active Major depression episode severity: severe Psychotic features: without psychotic features Qualified Code(s): F33.2 - Major depressive disorder, recurrent severe without psychotic features (13) DVT prophylaxis Current Visit: No Status: Acute Assessment and plan: On Eliquis - Time Spent With Patient Total time spent is greater than 50% in coordination of care (as documented) at patient's floor/unit and/or counseling patient:
[2018-07-19] MEDS ORDERED: Levalbuterol Neb 0.63 MG/3 ML IH PRN (11:15)
[2018-07-19 12:08] LABS: Albumin/Globulin Ratio 0.9 (1.1-2.2); Bilirubin,Direct 0.8 mg/dL (0.0-0.2); Bilirubin,Indirect 0.9 mg/dL (0.0-1.2); Bilirubin,Total 1.7 mg/dL (0.3-1.0); Globulin 3.4 g/dL (2.4-3.5); Total Protein 6.4 g/dL (6.4-8.9)
[2018-07-19 12:30] LABS: Digoxin < 0.3 ng/mL (0.8-2.0)
[2018-07-19] MEDS ORDERED: OXYCODONE Oral CONC 10 MG/0.5 ML ORAL.SYG SL ONE (14:04)
[2018-07-19] MEDS: Diltiazem CD (24hr) 120 MG CAPSULE PO SCH (14:47)
[2018-07-19] MEDS: predniSONE 20 MG TABLET PO SCH (14:47)
[2018-07-19] MEDS: OXYCODONE Oral CONC 10 MG/0.5 ML ORAL.SYG SL PRN ×2 (14:47→22:43)
[2018-07-19] MEDS ORDERED: Potassium Chloride Elixir 20 MEQ/15 ML UDC PO ONE (16:48)
[2018-07-19] MEDS: *HR* FentaNYL (PF) 100 MCG/2 ML VIAL IVP PRN (20:14)
[2018-07-19] MEDS: Ondansetron 4 MG/2 ML VIAL IVP PRN (21:05)
[2018-07-20] MEDS: traMADol 50 MG TABLET PO PRN (01:33)
[2018-07-20] MEDS: ALPRAZolam 0.5 MG TABLET PO PRN ×3 (03:24→21:28)
[2018-07-20 06:38] LABS: Basophils % 0.2 %; Eosinophils % 0.2 %; Hematocrit 31.8 % (35.3-44.9); Hemoglobin 9.7 g/dL (11.5-15.4); Immature Granulocytes % 0.2 % (0-4); Lymphocytes % 19.1 %; Mean Corpuscular HGB Conc 30.5 g/dL (31.6-35.5); Mean Corpuscular Volume 95.2 fL (83.0-100.0); Mean Platelet Volume 11.3 fL (9.4-12.4); Monocytes # 0.5 K/mcL (0.0-1.3); Monocytes % 9.3 %; Neutrophils # 3.6 K/mcL (1.6-8.9); Platelet Count 192 K/mcL (140-400); Red Blood Count 3.34 M/mcL (3.82-4.97); Red Cell Distribution Width 16.8 % (11.5-14.5)
[2018-07-20 06:58] LABS: Sodium 140 mEq/L (136-145)
[2018-07-20 06:59] LABS: BUN/Creatinine Ratio 34 (6-26); Blood Urea Nitrogen 12 mg/dL (8-23); Calcium 8.8 mg/dL (8.6-10.3); Carbon Dioxide 26 mEq/L (23-29); Chloride 108 mEq/L (98-107); Glucose 187 mg/dL (70-105); Magnesium 1.8 mg/dL (1.6-2.6); Osmolality,Calculated 295 (280-300); Phosphorous 3.4 mg/dL (2.7-4.5); Potassium 3.8 mEq/L (3.5-5.1); eGFR For Non-African Americans > 60 (> 60)
[2018-07-20] MEDS: OXYCODONE Oral CONC 10 MG/0.5 ML ORAL.SYG SL PRN ×2 (08:40→16:15)
[2018-07-20] MEDS: Apixaban 5 MG TABLET PO SCH ×2 (08:41→21:14)
[2018-07-20] MEDS: predniSONE 20 MG TABLET PO SCH (08:41)
[2018-07-20] MEDS: Diltiazem CD (24hr) 120 MG CAPSULE PO SCH (08:41)
--- NOTE | 2018-07-20 10:56 | Cardiology Progress Note ---
Date of Encounter: 07/20/18 Time of Encounter: 08:45 Assessment and Plan (1) Afib Current Visit: Yes Status: Acute Hx of Afib on Eliquis for AC. Presented in afib with RVR in the setting of hyperthyroidism--unclear if patient is taking medications. Has ablation scheduled at [facility] on 08/08/18. Started on cardizem gtt in ED, HR now controlled and has been transitioned to po cardizem. 12 hour tele: avg HR=74 Afib. HR 70's-80's upon exam. Continue Eliquis for AC. No further inpatient recommendations at this time. Continue mgmt for hyperthyroidism per primary service. Qualifiers: Atrial fibrillation type: unspecified Qualified Code(s): I48.91 - Unspecified atrial fibrillation (2) Hyperthyroidism Current Visit: Yes Status: Chronic (3) COPD (chronic obstructive pulmonary disease) Current Visit: No Status: Chronic Qualifiers: COPD type: unspecified COPD Qualified Code(s): J44.9 - Chronic obstructive pulmonary disease, unspecified Discussion w patient/family: The assessment and plan as outlined above was discussed with the patient and/or family members who expressed understanding and agreement. All questions were answered. Thank you for involving us in the care of your patient. Please call with any questions. The patient will be discussed and reviewed with Dr. Cavanaugh; changes to be made accordingly. No further inpatient recommendations, will sign-off and arrange for outpatient f/u with Cardiology. Subjective Principal diagnosis: Afib, pleural effusions Interval history: Seen and examined. Denies palpitations upon exam today. Continues to have dyspnea and left-sided rib pain--worsens with deep breath. No other symptoms reported. Objective Vital Signs, Last 4 Hours Temp Pulse Resp BP Pulse Ox 07/20/18 07:47 97.6 F 70 16 134/57 94 General: Conversant, Other (thin, frail) HEENT: Atraumatic Cardiac: Other (irregularly irregular) Lungs: Other (wheezes, decreased bibasilar) Neuro: Alert and responsive Abdomen: Soft Skin: No rashes noted on visualized skin Musculoskeletal: No Chest Wall Tenderness Extremities: No Edema, Normal Pulses Other: reported open wounds to coccyx Results 07/20/18 06:01 07/20/18 06:01 Lab Results 07/19/18 07/19/18 07/20/18 11:34 12:50 06:01 WBC 5.0 Hgb 9.7 L Hct 31.8 L Plt Count 192 Sodium Potassium Chloride Carbon Dioxide BUN Creatinine Glucose Calcium Magnesium Total Bilirubin 1.7 H AST 24 ALT 15 Alkaline Phosphatase 484 H Troponin I < 0.03 Lipase 3 L 07/20/18 06:01 WBC Hgb Hct Plt Count Sodium 140 Potassium 3.8 Chloride 108 H Carbon Dioxide 26 BUN 12 Creatinine 0.35 L Glucose 187 H Calcium 8.8 Magnesium 1.8 Total Bilirubin AST ALT Alkaline Phosphatase Troponin I Lipase Active Medications Alprazolam (Xanax) 0.5 mg PO TID PRN; Protocol PRN Reason: Anxiety Stop: 01/19/19 01:53 Last Admin: 07/20/18 03:24 Dose: 0.5 mg Apixaban (Eliquis) 5 mg PO BID ROSA Stop: 01/19/19 09:01 Last Admin: 07/20/18 08:41 Dose: 5 mg Diltiazem HCl (Cardizem Cd) 120 mg PO DAILY [facility] Stop: 01/18/19 14:46 Last Admin: 07/20/18 08:41 Dose: 120 mg Fentanyl Citrate (Fentanyl (Pf)) 25 mcg IVP Q6H PRN PRN Reason: Breakthrough Pain Stop: 01/18/19 15:46 Last Admin: 07/19/18 20:14 Dose: 25 mcg Diltiazem HCl 50 mg/ Sodium (Chloride) 50 mls @ 5 mls/hr IVC .Q5H ROSA PRN Reason: Protocol Stop: 01/18/19 06:31 Levalbuterol HCl (Xopenex) 0.63 mg IH [id number] PRN PRN Reason: Shortness Of Breath/Wheezing Stop: 01/18/19 16:01 Naloxone HCl (Narcan) 0.4 mg IVP Q2MIN PRN PRN Reason: SEE COMMENTS Stop: 01/18/19 11:04 Ondansetron HCl (Zofran) 4 mg IVP Q8HR PRN; Protocol PRN Reason: Nausea And Vomiting Stop: 01/18/19 15:33 Last Admin: 07/19/18 21:05 Dose: 4 mg Oxycodone HCl (Oxycodone Oral Conc) 5 mg SL Q6HR PRN; Protocol PRN Reason: Severe Pain Stop: 01/18/19 14:04 Last Admin: 07/20/18 08:40 Dose: 5 mg Prednisone (Prednisone) 20 mg PO DAILY ROSA Stop: 07/23/18 09:01 Last Admin: 07/20/18 08:41 Dose: 20 mg Tramadol HCl (Ultram) 50 mg PO Q6HR PRN PRN Reason: mild to moderate pain Stop: 01/18/19 15:28 Last Admin: 07/20/18 01:33 Dose: 50 mg - Imaging and Cardiology Echo: report reviewed Other Results: 12 hour tele: avg HR=74 afib. - EKG Interpretation EKG results cardiology: personally reviewed - VTE Documentation of Mechanical Device: Intermittent pneumatic compression device Consult Discharge Plan - Plan Referrals: Arslan Victoria, PROCUREMENT CONSULTANT [Primary Care Provider] -
[2018-07-20] MEDS ORDERED: Lidocaine -MPF 2% 2 ML VIAL ONE (12:12)
[2018-07-20] MEDS ORDERED: *HR* Propofol 200 MG/20 ML VIAL IVP ONE (12:12)
--- NOTE | 2018-07-20 12:46 | Anesthesia Evaluation PreOp ---
Date of Encounter: 07/20/18 Time of Encounter: 12:45 - Past History Planned Operation: EGD Cardiac History: [place] (1998), HTN, Hyperlipidemia, Arrhythmia (AFib), Cardiac Surgery (CABG X2 1999), Cardiac Stent Pulmonary History: COPD CAN WASHER History: Denies Any Significant HX Other Medical History: Thyroid, Other (Anxiety Depression) Anesthesia History: No Prior Anesthetic Complications Alcohol Use: none Drug use: none Medications and Allergies ALPRAZolam [Xanax 0.5 MG Tablet] 0.5 mg PO TID 04/11/18 [History] Aspirin 325 mg PO DAILY 04/11/18 [History] Bumetanide [Bumex] 1 mg PO DAILY 04/11/18 [History] Digoxin [Lanoxin] 0.125 mg PO DAILY 04/11/18 [History] Ferrous Sulfate [Iron] 325 mg PO BID 04/11/18 [History] Furosemide [Lasix] 20 mg PO DAILY 04/11/18 [History] Isosorbide MONOnitrate (24 HR) [Imdur] 30 mg PO DAILY 04/11/18 [History] Lisinopril [Zestril] 40 mg PO DAILY 04/11/18 [History] Nitroglycerin [Nitrostat] 0.4 mg SL Q5M PRN 04/11/18 [History] OxyCODONE Immed Rel [Roxicodone 10 MG] 10 mg PO QID 04/11/18 [History] Pregabalin [Lyrica] 75 mg PO BID 04/11/18 [History] Simvastatin [Zocor] 20 mg PO HS 04/11/18 [History] methIMAzole [Methimazole] 10 mg PO DAILY 04/11/18 [History] Apixaban [Eliquis] 5 mg PO BID #60 tablet 04/13/18 [Rx] Diltiazem CD (24hr) [Cardizem CD] 120 mg PO DAILY #30 cap.er.24h 04/13/18 [Rx] Amitriptyline [Elavil] 25 mg PO HS 05/07/18 [History] Amlodipine Besylate 2.5 mg PO DAILY 05/07/18 [History] Venlafaxine HCl [Venlafaxine HCl ER] 75 mg PO DAILY 05/07/18 [History] 3 Allergy/AdvReac Type Severity Reaction Status Date / Time hydrocodone [From Vicodin] Allergy Swelling Verified 09/20/17 15:38 of Lip/Tongue/Throat morphine AdvReac Rash Verified 11/20/17 16:57 - Meds/Allergy Pre-op Review Medications Reviewed: Yes Allergies Reviewed: Yes Beta Blockers on Current Med List: No Anesthesia Results - Labs 07/20/18 06:01 07/20/18 06:01 Laboratory Tests 07/20/18 07/20/18 06:01 06:01 Hgb 9.7 L Hct 31.8 L Plt Count 192 Sodium 140 Potassium 3.8 BUN 12 Creatinine 0.35 L - Imaging EKG: report reviewed (AF) Additional studies: ECHO 2017 EF 60% Anesthesia Exam Vital Signs/O2 Sat/Glucose, Most Current Temp Pulse Resp BP Pulse Ox 07/20/18 11:19 97.7 F 65 16 124/69 97 Height: 5'1 Weight: 109 lbs NPO (# of Hours): MN Pain Scale: 0 - HEENT Pupil (Motor): Pupils equal, EOMI Mallampati: II Oral Opening: Greater than 3 - CAN WASHER LOC: Oriented CAN WASHER Motor: Normal RUE, Normal LUE, Normal RLE, Normal LLE, Normal Face CAN WASHER Sensory: Normal: RUE, LUE, RLE, LLE, Face - Cardiac Rhythm: Irregular Murmur: None JVD: No Carotid Bruit: No - Pulmonary Breath Sounds: bilateral Clear Respiratory Effort: Symmetrical Anesthesia Assess/Plan ASA Score: 3 (AFib HTN CAD) Modified Mamadou Scale for Level of Consciousness: Cooperative, oriented, and tranquil Anesthetic Plan: MAC Monitoring Plan: Standard Monitors Recovery Plan: Other (Discussed MAC, agrees to proceed)
--- NOTE | 2018-07-20 13:00 | Gastroenterology Consult Note ---
Date of Encounter: 07/20/18 Time of Encounter: 12:00 - Assessment and plan (1) Epigastric abdominal pain Current Visit: Yes Status: Acute Assessment and plan: Patient with epigastric abdominal pain with radiation to the chest and right arm. has been seen by cardiology CT of the abdomen is unremarkable. Patient will have EGD done to rule out esophageal/gastric causes for her abdominal pain. Patient with a history of prior gastric bypass. EGD to rule out anastomotic ulcer (2) Alkaline phosphatase elevation Current Visit: Yes Status: Acute Assessment and plan: We will do isoenzyme of alkaline phosphatase and also we will do an AMA to rule out primary biliary cholangitis. MRCP is negative for any CBD stone. Patient has dilated CBD but she is status post GBsurgery and that is physiologic finding - Time Spent With Patient Total time spent is greater than 50% in coordination of care (as documented) at patient's floor/unit and/or counseling patient: GI History of Present Illness - Data of Consult Consult date: 07/20/18 Requesting Physician: Dagoberto Mcdaniels, - Consult Narrative Reason for consult: Epigastric pain History of present illness: Ms. Mcdaniels is a 63 year old female admitted because of epigastric pain. Per patient she has some pain on and off but the night prior to admission she had pain in the epigastric area that was severe radiating to her back and also to upper chest and into her right armended up coming to the hospital. His been seen by cardiology so far workup has been unremarkable including a CT scan and an MRI that showed dilated CBD but patient already has a gallbladder removed with no CBD stone. Does admit of having some trouble swallowing bread for a while. Epigastric pain does come and goes and it does seem to respond to nitroglycerin. Past Med Surg Social Fam HX - Past Medical History Medical history: atrial fibrillation, CHF, COPD, coronary artery disease, hyperlipidemia, hypertension, osteoporosis, thyroid disease, other Additional medical history: PITTING EDEMA Psychiatric history: depression, other - Past Surgical History Surgical History: cholecystectomy, coronary bypass (CABG), hysterectomy, other Additional surgical history: 3 vessel Bypass. 9 Coronary stents. GASTRIC BYPASS. b/l hip surgeries - Social History Smoking Status: Never smoker Smokeless Tobacco Status: No Alcohol use: none Drug use: none - Family History Father Family Member Ethnicity: Non- Living Status: Hx Family Cardiac Disorders: Yes (RI) Brother Family Member Ethnicity: Non- Living Status: Sister Family Member Ethnicity: Non- Twin of Family Member: Yes, Identical Living Status: Hx Family Cardiac Disorders: Yes (afib) Hx Family Cancer: Yes (Colon) Mother Adopted: No Family Member Ethnicity: Non- Living Status: Hx Family Cardiac Disorders: Yes (RI) Hx Family Respiratory Disorders: No Hx Family Cancer: Yes (Colon ) Hx Family GI Disorders: Yes (Bowel Cancer) Hx Family Endocrine Disorder: Yes (DM) Hx Family Neuromuscular Disorders: No Hx Family Neurologic Disorders: No Hx Family HEENT Disorders: No Hx Family Autoimmune Disorders: No Review of Systems: GI: as per [facility] [facility]: denies fever, EYES: denies yellow discoloration ENT: denies pain with swallowing has difficulty swallowing bread on and off CARDIO: Chest pain as described above RESP: SOB is on oxygen 3 L : denies change in color of urine NEURO: Does complain of generalized weakness but no focal weakness HEME: Denies any bruising MS: Per patient she hurts all over body including all joints DERM: denies rash or itching PSYCH: History of anxiety - Constitutional Vitals: Temp Pulse Resp BP Pulse Ox 97.7 F 65 16 124/69 97 07/20/18 11:19 07/20/18 11:19 07/20/18 11:19 07/20/18 11:19 07/20/18 11:19 Exam: CONSTITUTIONAL:~alert, no acute distress.~HEAD:~normocephalic.~EYES:~no jaundice.~NECK:~no obvious swelling.~HEART:~Heart rate control. Scar of CABG ~ LUNGS:~bilateral decreased breath sounds.~ABDOMEN:~non distended, soft, non tander, no masses pulpable, no organomegaly. Has old surgical scar ~RECTAL EXAM :~Deferred.~EXTREMITIES:~no clubbing, cyanosis or edema.~SKIN:~no stigmata of chronic liver disease.~NEUROLOGIC:~no obvious focal defect.~~~~ Results - Labs CBC & Chem 7: 07/20/18 06:01 07/20/18 06:01 Labs: Last Result Calcium 8.8 mg/dL (8.6-10.3) 07/20/18 06:01 Troponin I < 0.03 ng/mL (< 0.04) 07/19/18 12:50 Entire Visit Hgb 9.7 g/dL (11.5-15.4) L 07/20/18 06:01 Hct 31.8 % (35.3-44.9) L 07/20/18 06:01 PT 15.1 Seconds (9.4-12.1) H 07/19/18 06:05 Total Bilirubin 1.7 mg/dL (0.3-1.0) H 07/19/18 11:34 AST 24 Units/L (13-39) 07/19/18 11:34 ALT 15 Units/L (7-52) 07/19/18 11:34 Lipase 3 Units/L (11-82) L 07/19/18 11:34 - ABG ABG results: PT/INR, D-dimer PT 15.1 Seconds (9.4-12.1) H 07/19/18 06:05 - Impressions Impressions Abdomen/Pelvis CTA 07/19/18 10:52 IMPRESSION: 1. No pulmonary embolism. 2. Calcific atherosclerosis aorta and coronary arteries. No aneurysm or dissection. 3. Cardiomegaly. 4. Contrast refluxing into the hepatic veins suggesting right heart insufficiency. 5. Blood pool density of the heart is lower than that of the myocardium, typical of anemia. 6. Bilateral pleural effusion with bibasilar consolidation, right greater than left. Pneumonitis is a consideration. 7. Nonspecific small volume pelvic ascites may be reactive. D/ / Blane Diaz / Blane Diaz Interpreting Provider: Blane Diaz Chest CTA 07/19/18 10:52 IMPRESSION: 1. No pulmonary embolism. 2. Calcific atherosclerosis aorta and coronary arteries. No aneurysm or dissection. 3. Cardiomegaly. 4. Contrast refluxing into the hepatic veins suggesting right heart insufficiency. 5. Blood pool density of the heart is lower than that of the myocardium, typical of anemia. 6. Bilateral pleural effusion with bibasilar consolidation, right greater than left. Pneumonitis is a consideration. 7. Nonspecific small volume pelvic ascites may be reactive. D/ / Blane Diaz / Blane Diaz Interpreting Provider: Blane Diaz Consult Discharge Plan - Plan Referrals: Arslan Victoria, IMAGING ADMINISTRATOR [Primary Care Provider] -
--- NOTE | 2018-07-20 13:44 | Internal Med Progress Note ---
<Dagoberto Mcdaniels - Last Filed: 07/20/18 17:51> Hospitalist Progress Note - Encounter Date of Encounter: 07/20/18 - Exam Vitals: Temp Pulse Resp BP Pulse Ox 97.5 F L 65 16 114/79 98 07/20/18 16:24 07/20/18 16:24 07/20/18 16:24 07/20/18 16:24 07/20/18 16:24 - Assessment and Plan (1) Hyperthyroidism Current Visit: Yes Status: Chronic (2) CAD (coronary artery disease) Current Visit: No Status: Chronic (3) HTN (hypertension) Current Visit: No Status: Chronic (4) COPD (chronic obstructive pulmonary disease) Current Visit: No Status: Chronic (5) Atrial fibrillation with RVR Current Visit: Yes Status: Acute (6) Chronic respiratory failure with hypoxia Current Visit: No Status: Chronic (7) HLD (hyperlipidemia) Current Visit: No Status: Chronic (8) MDD (major depressive disorder) Current Visit: No Status: Chronic (9) Decubitus ulcer of coccygeal region, stage 2 Current Visit: No Status: Chronic (10) Hypokalemia Current Visit: No Status: Resolved (11) DVT prophylaxis Current Visit: No Status: Acute (12) Chest pain Current Visit: Yes Status: Acute (13) Epigastric pain Current Visit: Yes Status: Acute (14) Afib Current Visit: Yes Status: Chronic - Time Spent with Patient Total time spent is greater than 50% in coordination of care (as documented) at patient's floor/unit and/or counseling patient: Internal Medicine: Result - Labs CBC & Chem 7: 07/20/18 06:01 07/20/18 06:01 - ABG Interpretation ABG results: PT/INR, D-dimer PT 15.1 Seconds (9.4-12.1) H 07/19/18 06:05 Consult Discharge Plan - Plan Referrals: Arslan Victoria, INDUSTRIAL SWEEPER CLEANER [Primary Care Provider] - - Attending Attestation I examined this patient and my medical decision-making was reviewed with the Resident Physician on 07/20/18. I agree with the documented findings, disposition and treatment plan as described except to the extent set forth below. Ms Mcdaniels is currently admitted for chest pain and abdominal pain with hyperthyroidism. She remains moderate to high risk due to potential for worsening clinical status. Ms Mcdaniels is eating dinner. She had EGD today that was negative. She had MRCP which did not show acute process. No fever or chills. Has diarrhea that is chronic. Exam alert Comfortable at this time Mucus membranes dry Heart irreg - not tachy now Lungs diminished Abd soft with mid epigastric discomfort No edema I/P 1. Chest pain 2. Abd pain Further diagnoses and plan as above. Need script for BSC and shower chair at discharge. <Jimbo Clarke - Last Filed: 07/20/18 19:24> Hospitalist Progress Note - Encounter Date of Encounter: 07/20/18 Time of Encounter: 10:00 - Subjective Interval History: Ms. Mcdaniels is a 63-year-old female with a past medical history of CAD status post CABG, diastolic heart failure, COPD(3L O2), atrial fibrillation, hypertension that was [facility] because of chest and abdominal pain that started the day before yesterday evening. She endorses a gastric pain that does not get worse with meals. Her pain is currently non-radiating, although during admission there was some concern with the pain radiating to her shoulder and back. Her initial workup was negative for troponins, EKG was negative for any ST-T changes, her lipases were normal, her LFTs were unremarkable except for elevated alk phosphatase (484). Her CT of the abdomen was unremarkable, chest CT did show cardiomegaly and bilateral pleural effusion R> L with concerns for pneumonitis. MRCP was negative for any CBD stone. She was A. fib RVR when she was in the ED, was put on Cardizem drip but currently she is not in RVR anymore. Currently she is awaiting results of her EGD to rule out any evidence of ulcer,or varices or any other complications. - Exam Vitals: Temp Pulse Resp BP Pulse Ox 98.2 F 60 14 116/60 97 07/20/18 13:07 07/20/18 13:07/20/18 13:07/20/18 13:07/20/18 13:07 Exam: Gen: NAD, AAO x3 CVS: irregularly irregular rate, rhythm Lungs: Poor inspiratory effort, faint wheezing, decreased breath sounds at bases. Abdomen: Soft, + Tenderness in RUQ and LUQ, normal bowel sounds, no rigidity, no rebound tenderness Ext: 1+ bipedal edema. - Assessment and Plan (1) Epigastric pain Current Visit: Yes Status: Acute Assessment and Plan: - Patient was admitted for nonradiating epigastric pain. Patient is a nonsmoker but does have a history of alcohol abuse. She denies any history of gastritis, functional dyspepsia or GERD. - Her initial workup was negative for any other troponins, ST elevations. Her lipase was within normal limits. She had normal ALT and AST but elevated alkaline phosphatase (484), Bilirubin was elevated (1.7) , MRCP was negative for any gallstones. EGD was normal (2) Hyperthyroidism Current Visit: Yes Status: Chronic Assessment and Plan: -Patient has a history of hyperthyroidism. She is scheduled for ablation of prostate on August 08. -TSH < 0.010, Free T4: 4.17. -Patient takes 10 mg by mouth methimazole. Patient's platelets are within normal limits continue on her home dose of methimazole.. (3) Atrial fibrillation with RVR Current Visit: Yes Status: Acute Assessment and Plan: - Likely due to her acute abdomen. It could also be due to her history of hyperthyroidism. - Patient was put on Cardizem drip when she came to the ED in RVR, transitioned to PO Cardizem. Currently A fib RVR has resolved. -She continues to be in A. fib but that is chronic, HR 70-90s. Eliquis for AC. (4) COPD (chronic obstructive pulmonary disease) Current Visit: No Status: Chronic Assessment and Plan: - Patient's has a Hx of COPD. currently on 3 L of oxygen at home. - Patient endorses no increase in the frequency of cough, productive sputum during this admission. - DuoNeb's PRN, titrate oxygen for SPO2 > 88% (5) CAD (coronary artery disease) Current Visit: No Status: Chronic Assessment and Plan: - Patient has a history of chronic CAD. -Continue lisinopril, Lipitor and aspirin. (6) DVT prophylaxis Current Visit: No Status: Acute Assessment and Plan: on Eliquis - Time Spent with Patient Total time spent is greater than 50% in coordination of care (as documented) at patient's floor/unit and/or counseling patient: Internal Medicine: Result - Labs CBC & Chem 7: 07/20/18 06:01 07/20/18 06:01 Labs: Short CBC 07/20/18 Range/Units 06:01 WBC 5.0 (4.3-11.1) K/mcL Hgb 9.7 L (11.5-15.4) g/dL Hct 31.8 L (35.3-44.9) % Plt Count 192 (140-400) K/mcL Neutrophils # 3.6 (1.6-8.9) K/mcL BMP 07/20/18 06:01 Sodium 140 Potassium 3.8 Chloride 108 H Carbon Dioxide 26 BUN 12 Creatinine 0.35 L Glucose 187 H Calcium 8.8 - ABG Interpretation ABG results: PT/INR, D-dimer PT 15.1 Seconds (9.4-12.1) H 07/19/18 06:05 - VTE Documentation of Mechanical Device: Intermittent pneumatic compression device <Dagoberto Mcdaniels - Last Filed: 07/20/18 17:51> (2) CAD (coronary artery disease) Qualifiers: Coronary Disease-Associated Artery/Lesion type: [place] artery [place] vs. transplanted heart: [place] heart Associated angina: without angina Qualified Code(s): I25.10 - Atherosclerotic heart disease of [place] coronary artery without angina pectoris (3) HTN (hypertension) Qualifiers: Hypertension type: essential hypertension Qualified Code(s): I10 - Essential (primary) hypertension (4) COPD (chronic obstructive pulmonary disease) Qualifiers: COPD type: unspecified COPD Qualified Code(s): J44.9 - Chronic obstructive pulmonary disease, unspecified (7) HLD (hyperlipidemia) Qualifiers: Hyperlipidemia type: mixed hyperlipidemia Qualified Code(s): E78.2 - Mixed hyperlipidemia (8) MDD (major depressive disorder) Qualifiers: Major depression recurrence: recurrent Active/Remission status: currently active Major depression episode severity: severe Psychotic features: without psychotic features Qualified Code(s): F33.2 - Major depressive disorder, recurrent severe without psychotic features (12) Chest pain Qualifiers: Chest pain type: unspecified Qualified Code(s): R07.9 - Chest pain, unspecified (14) Afib Qualifiers: Atrial fibrillation type: chronic Qualified Code(s): I48.2 - Chronic atrial fibrillation <Jimbo Clarke - Last Filed: 07/20/18 19:24> (4) COPD (chronic obstructive pulmonary disease) Qualifiers: COPD type: unspecified COPD Qualified Code(s): J44.9 - Chronic obstructive pulmonary disease, unspecified (5) CAD (coronary artery disease) Qualifiers: Coronary Disease-Associated Artery/Lesion type: [place] artery [place] vs. transplanted heart: [place] heart Associated angina: without angina Qualified Code(s): I25.10 - Atherosclerotic heart disease of [place] coronary artery without angina pectoris
[2018-07-20] MEDS ORDERED: *HR* Dextrose 50 % in Water (Syg) 50 ML SYRINGE IVP PRN (16:52)
[2018-07-20] MEDS ORDERED: Dextrose Gel 15 GM/37.5 ML TUBE PO PRN ×2 (16:52)
[2018-07-20] MEDS ORDERED: D5% in Water 1,000 ML IVC PRN (16:52)
[2018-07-20] MEDS: Insulin LISPRO 300 UNITS/3 ML VIAL SQ SCH ×2 (17:19→21:33)
[2018-07-20] MEDS: *HR* FentaNYL (PF) 100 MCG/2 ML VIAL IVP PRN (21:13)
[2018-07-20] MEDS: Vancomycin Oral Soln 125 MG/2.5 ML UDC PO SCH (21:14)
[2018-07-20] MEDS: Ondansetron 4 MG/2 ML VIAL IVP PRN (21:28)
[2018-07-21] MEDS: OXYCODONE Oral CONC 10 MG/0.5 ML ORAL.SYG SL PRN ×4 (02:36→21:11)
[2018-07-21 04:07] LABS: Basophils % 0.1 %; Eosinophils % 0.2 %; Hematocrit 31.5 % (35.3-44.9); Hemoglobin 9.7 g/dL (11.5-15.4); Immature Granulocytes % 0.3 % (0-4); Lymphocytes # 1.2 K/mcL (0.6-4.6); Lymphocytes % 13.3 %; Mean Corpuscular HGB Conc 30.8 g/dL (31.6-35.5); Mean Corpuscular Hemoglobin 29.8 pg (28.0-33.3); Mean Corpuscular Volume 96.9 fL (83.0-100.0); Mean Platelet Volume 11.6 fL (9.4-12.4); Monocytes # 0.7 K/mcL (0.0-1.3); Monocytes % 7.6 %; Neutrophils # 6.9 K/mcL (1.6-8.9); Platelet Count 187 K/mcL (140-400); Red Blood Count 3.25 M/mcL (3.82-4.97); Red Cell Distribution Width 16.6 % (11.5-14.5); Segmented Neutrophils % 78.5 %
[2018-07-21 04:30] LABS: BUN/Creatinine Ratio 52 (6-26); Blood Urea Nitrogen 15 mg/dL (8-23); Calcium 8.5 mg/dL (8.6-10.3); Carbon Dioxide 27 mEq/L (23-29); Chloride 106 mEq/L (98-107); Glucose 121 mg/dL (70-105); Osmolality,Calculated 288 (280-300); Potassium 4.8 mEq/L (3.5-5.1); Sodium 138 mEq/L (136-145); eGFR For Non-African Americans > 60 (> 60)
[2018-07-21] MEDS: Insulin LISPRO 300 UNITS/3 ML VIAL SQ SCH ×4 (07:37→21:43)
[2018-07-21] MEDS: Diltiazem CD (24hr) 120 MG CAPSULE PO SCH (09:09)
[2018-07-21] MEDS: predniSONE 20 MG TABLET PO SCH (09:09)
[2018-07-21] MEDS: Apixaban 5 MG TABLET PO SCH ×2 (09:09→21:11)
[2018-07-21] MEDS: Vancomycin Oral Soln 125 MG/2.5 ML UDC PO SCH ×4 (09:10→21:11)
--- NOTE | 2018-07-21 11:32 | Internal Med Progress Note ---
<Dagoberto Mcdaniels - Last Filed: 07/21/18 16:43> Hospitalist Progress Note - Encounter Date of Encounter: 07/21/18 - Exam Vitals: Temp Pulse Resp BP Pulse Ox 98.5 F 69 15 110/67 98 07/21/18 15:00 07/21/18 15:00 07/21/18 15:00 07/21/18 15:00 07/21/18 15:00 - Assessment and Plan (1) Clostridium difficile colitis Current Visit: Yes Status: Acute Assessment and Plan: Present on admission. (2) Hyperthyroidism Current Visit: Yes Status: Chronic (3) CAD (coronary artery disease) Current Visit: No Status: Chronic (4) HTN (hypertension) Current Visit: No Status: Chronic (5) COPD (chronic obstructive pulmonary disease) Current Visit: No Status: Chronic (6) Atrial fibrillation with RVR Current Visit: Yes Status: Acute (7) Chronic respiratory failure with hypoxia Current Visit: No Status: Chronic (8) HLD (hyperlipidemia) Current Visit: No Status: Chronic (9) MDD (major depressive disorder) Current Visit: No Status: Chronic (10) Decubitus ulcer of coccygeal region, stage 2 Current Visit: No Status: Chronic (11) DVT prophylaxis Current Visit: No Status: Acute (12) Chest pain Current Visit: Yes Status: Acute (13) Epigastric pain Current Visit: Yes Status: Acute (14) Afib Current Visit: Yes Status: Chronic - Time Spent with Patient Total time spent is greater than 50% in coordination of care (as documented) at patient's floor/unit and/or counseling patient: Internal Medicine: Result - Labs CBC & Chem 7: 07/21/18 03:35 07/21/18 03:35 Labs: Short CBC 07/21/18 Range/Units 03:35 WBC 8.8 D (4.3-11.1) K/mcL Hgb 9.7 L (11.5-15.4) g/dL Hct 31.5 L (35.3-44.9) % Plt Count 187 (140-400) K/mcL Neutrophils # 6.9 (1.6-8.9) K/mcL BMP 07/21/18 03:35 Sodium 138 Potassium 4.8 D Chloride 106 Carbon Dioxide 27 BUN 15 Creatinine 0.29 L Glucose 121 H Calcium 8.5 L - ABG Interpretation ABG results: PT/INR, D-dimer PT 15.1 Seconds (9.4-12.1) H 07/19/18 06:05 Consult Discharge Plan - Plan Referrals: Arslan Victoria, P[employer]ELDER [Primary Care Provider] - - Attending Attestation I examined this patient and my medical decision-making was reviewed with the Resident Physician on 07/21/18. I agree with the documented findings, disposition and treatment plan as described except to the extent set forth below. Ms Mcdaniels is currently admitted for abdominal pain and found to have acute C diff colitis that was present on admission. She remains moderate to high risk due to potential for worsening clinical status. Ms Mcdaniels continues to have watery diarrhea. No fever or chills. Abd still painful. No CP or SOB. Feels very hungry. Exam alert Comfortable Mucus membranes dry Heart irreg but not tachy No wheeze abd soft with continued epigastric discomfort. No peritoneal signs No edema I/P 1. C diff colitis - acute 2. Hyperthyroid Further diagnoses and plan as above <Jimbo Clarke - Last Filed: 07/21/18 19:21> Hospitalist Progress Note - Encounter Date of Encounter: 07/21/18 Time of Encounter: 09:30 - Subjective Interval History: 07/21 No acute events overnight. Patient continues to endorse a dull non- radiating epigastric pain. Shee has had multiple episodes of foul smelling watery diarrhea. Was found to be positive for C. difficile currently on 125 mg vancomycin. The telemetry is negative for A. fib RVR. 07/20 Ms. Mcdaniels is a 63-year-old female with a past medical history of CAD status post CABG, diastolic heart failure, COPD(3L O2), atrial fibrillation, hypertension that was admitted to the [facility] floor because of chest and abdominal pain that started the day before yesterday evening. She endorses a gastric pain that does not get worse with meals. Her pain is currently non-radiating, although during admission there was some concern with the pain radiating to her shoulder and back. Her initial workup was negative for troponins, EKG was negative for any ST-T changes, her lipases were normal, her LFTs were unremarkable except for elevated alk phosphatase (484). Her CT of the abdomen was unremarkable, chest CT did show cardiomegaly and bilateral pleural effusion R> L with concerns for pneumonitis. MRCP was negative for any CBD stone. She was A. fib RVR when she was in the ED, was put on Cardizem drip but currently she is not in RVR anymore. Currently she is awaiting results of her EGD to rule out any evidence of ulcer,or varices or any other complications. - Exam Vitals: Temp Pulse Resp BP Pulse Ox 98.5 F 69 16 116/65 97 07/21/18 07:02 07/21/18 07:02 07/21/18 07:02 07/21/18 07:02 07/21/18 07:02 Exam: Gen: NAD, AAO x3 CVS: irregularly irregular rate, rhythm Lungs: Poor inspiratory effort, faint wheezing, decreased breath sounds at bases. Abdomen: Soft, + Tenderness in RUQ and LUQ, normal bowel sounds, no rigidity, no rebound tenderness Ext: 1+ bipedal edema. - Assessment and Plan (1) Epigastric pain Current Visit: Yes Status: Acute Assessment and Plan: - Patient was admitted for nonradiating epigastric pain. Patient is a nonsmoker but does have a history of alcohol abuse. She denies any history of gastritis, functional dyspepsia or GERD. - Her initial workup was negative for any other troponins, ST elevations. Her lipase was within normal limits. She had normal ALT and AST but elevated alkaline phosphatase (484), Bilirubin was elevated (1.7) , MRCP was negative for any gallstones. EGD was normal and for any ulcers or varicosities. - awaiting results of AMA to rule out primary biliary cirrhosis (2) Hyperthyroidism Current Visit: Yes Status: Chronic Assessment and Plan: -Patient has a history of hyperthyroidism. She is scheduled for ablation of thyroid on August 08. -TSH < 0.010, Free T4: 4.17. -Patient takes 10 mg by mouth methimazole. Patient's platelets are within normal limits continue on her home dose of methimazole.. (3) C. difficile diarrhea Current Visit: Yes Status: Acute Assessment and Plan: - Was found to be positive for non-severe C. difficile. She has had multiple episodes of watery diarrhea since her admission. - Currently afebrile, endorses postprandial watery diarrhea. - Currently on PO vancomycin 125 mg. (4) Atrial fibrillation with RVR Current Visit: Yes Status: Acute Assessment and Plan: -resolved. She went in A. fib during the admission likely due to her acute abdomen and due to her history of hyperthyroidism. -She was initially in A. fib RVR in the ED- currently transitioned to by mouth Cardizem - Continue to monitor her hemodynamic status. (5) COPD (chronic obstructive pulmonary disease) Current Visit: No Status: Chronic Assessment and Plan: - Patient's has a Hx of COPD. currently on 3 L of oxygen at home. - Patient endorses no increase in the frequency of cough, productive sputum during this admission. - DuoNeb's PRN, titrate oxygen for SPO2 > 88% (6) CAD (coronary artery disease) Current Visit: No Status: Chronic Assessment and Plan: - Patient has a history of chronic CAD. -Continue lisinopril, Lipitor and aspirin. (7) DVT prophylaxis Current Visit: No Status: Acute Assessment and Plan: on eliquis - Time Spent with Patient Total time spent is greater than 50% in coordination of care (as documented) at patient's floor/unit and/or counseling patient: Internal Medicine: Result - Labs CBC & Chem 7: 07/21/18 03:35 07/21/18 03:35 Labs: Short CBC 07/21/18 Range/Units 03:35 WBC 8.8 D (4.3-11.1) K/mcL Hgb 9.7 L (11.5-15.4) g/dL Hct 31.5 L (35.3-44.9) % Plt Count 187 (140-400) K/mcL Neutrophils # 6.9 (1.6-8.9) K/mcL BMP 07/21/18 03:35 Sodium 138 Potassium 4.8 D Chloride 106 Carbon Dioxide 27 BUN 15 Creatinine 0.29 L Glucose 121 H Calcium 8.5 L - ABG Interpretation ABG results: PT/INR, D-dimer PT 15.1 Seconds (9.4-12.1) H 07/19/18 06:05 - VTE Documentation of Mechanical Device: Intermittent pneumatic compression device <Dagoberto Mcdaniels Delgaod - Last Filed: 07/21/18 16:43> (3) CAD (coronary artery disease) Qualifiers: Coronary Disease-Associated Artery/Lesion type: [place] artery [place] vs. transplanted heart: [place] heart Associated angina: without angina Qualified Code(s): I25.10 - Atherosclerotic heart disease of [place] coronary artery without angina pectoris (4) HTN (hypertension) Qualifiers: Hypertension type: essential hypertension Qualified Code(s): I10 - Essential (primary) hypertension (5) COPD (chronic obstructive pulmonary disease) Qualifiers: COPD type: unspecified COPD Qualified Code(s): J44.9 - Chronic obstructive pulmonary disease, unspecified (8) HLD (hyperlipidemia) Qualifiers: Hyperlipidemia type: mixed hyperlipidemia Qualified Code(s): E78.2 - Mixed hyperlipidemia (9) MDD (major depressive disorder) Qualifiers: Major depression recurrence: recurrent Active/Remission status: currently active Major depression episode severity: severe Psychotic features: without psychotic features Qualified Code(s): F33.2 - Major depressive disorder, recurrent severe without psychotic features (12) Chest pain Qualifiers: Chest pain type: unspecified Qualified Code(s): R07.9 - Chest pain, unspecified (14) Afib Qualifiers: Atrial fibrillation type: chronic Qualified Code(s): I48.2 - Chronic atrial fibrillation <Jimbo Clarke - Last Filed: 07/21/18 19:21> (5) COPD (chronic obstructive pulmonary disease) Qualifiers: COPD type: unspecified COPD Qualified Code(s): J44.9 - Chronic obstructive pulmonary disease, unspecified (6) CAD (coronary artery disease) Qualifiers: Coronary Disease-Associated Artery/Lesion type: [place] artery [place] vs. transplanted heart: [place] heart Associated angina: without angina Qualified Code(s): I25.10 - Atherosclerotic heart disease of [place] coronary artery without angina pectoris
[2018-07-21] MEDS: ALPRAZolam 0.5 MG TABLET PO PRN ×2 (13:18→21:11)
[2018-07-21] MEDS: methIMAzole 5 MG TABLET PO SCH (13:19)
--- NOTE | 2018-07-21 16:10 | Electrocardiograph Report ---
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
[2018-07-22 05:33] LABS: Basophils % 0.1 %; Eosinophils # 0.2 K/mcL (0.0-0.6); Eosinophils % 2.4 %; Hematocrit 30.5 % (35.3-44.9); Hemoglobin 9.5 g/dL (11.5-15.4); Immature Granulocytes % 0.1 % (0-4); Lymphocytes # 0.8 K/mcL (0.6-4.6); Lymphocytes % 11.7 %; Mean Corpuscular HGB Conc 31.1 g/dL (31.6-35.5); Mean Corpuscular Hemoglobin 30.1 pg (28.0-33.3); Mean Corpuscular Volume 96.5 fL (83.0-100.0); Mean Platelet Volume 11.6 fL (9.4-12.4); Monocytes # 0.4 K/mcL (0.0-1.3); Monocytes % 5.8 %; Neutrophils # 5.3 K/mcL (1.6-8.9); Platelet Count 168 K/mcL (140-400); Red Blood Count 3.16 M/mcL (3.82-4.97); Red Cell Distribution Width 16.1 % (11.5-14.5); Segmented Neutrophils % 79.9 %
[2018-07-22 05:55] LABS: Blood Urea Nitrogen 13 mg/dL (8-23); Calcium 8.4 mg/dL (8.6-10.3); Carbon Dioxide 31 mEq/L (23-29); Chloride 105 mEq/L (98-107); Glucose 86 mg/dL (70-105); Osmolality,Calculated 285 (280-300); Potassium 4.6 mEq/L (3.5-5.1); Sodium 138 mEq/L (136-145)
--- NOTE | 2018-07-22 07:25 | Internal Med Progress Note ---
<Yeimi Hoffman N - Last Filed: 07/22/18 11:16> Hospitalist Progress Note - Encounter Date of Encounter: 07/22/18 Time of Encounter: 07:25 - Subjective Interval History: Ms. Mcdaniels is a 63-year old female who was admitted to the hospital due to chest and abdominal pain. She was found to have C. difficile as well. On exam today, she complains of epigastric pain and continued diarrhea. She denies any other complaints or concerns at this time. - Exam Vitals: Temp Pulse Resp BP Pulse Ox 98.7 F 72 15 128/64 99 07/22/18 04:55 07/22/18 04:55 07/22/18 04:55 07/22/18 04:55 07/22/18 04:55 Exam: * General: Ill-appearing female in no acute distress. She appears uncomfortable secondary to persistent abdominal pain. She appears very cachectic. * HEENT: Atraumatic and normocephalic. * Cardiovascular: Irregular rate and rhythm. No murmurs, rubs, or gallops. * Respiratory: Decreased inspiratory effort secondary to worsened abdominal discomfort. No wheezes, rales, or rhonchi. * Gastrointestinal: Active bowel sounds x 4 quadrants. Abdomen is soft but tender, particularly in epigastric area. * Extremities: No clubbing, cyanosis, or edema. - Assessment and Plan (1) Epigastric pain Current Visit: Yes Status: Acute Assessment and Plan: Patient complained of epigastric pain on presentation, which has persisted. EGD demosntrated normal esophagus and stomach. GI has been consulted for assistance in management of this problem. Awaiting results of further GI workup. (2) Hyperthyroidism Current Visit: Yes Status: Chronic Assessment and Plan: History of hyperthyroidism controlled with methamazole. Will continue that medication at this time. She is planned for a thyroidectomy on August 08. (3) Atrial fibrillation with RVR Current Visit: Yes Status: Acute Assessment and Plan: Patient reportedly had Afib on presentation to the ED, which was felt to be secondary to abdominal pain. She was started on cardizem with good success. She is currently on cardizem 120mg, which we will continue. (4) DVT prophylaxis Current Visit: No Status: Acute Assessment and Plan: Continue Eliquis. (5) Clostridium difficile colitis Current Visit: Yes Status: Acute Assessment and Plan: Patient reportedly had several loose stools yesterday. C. difficile toxin was positive. Patient has been started on PO vancomycin for this problem. She reports continued diarrhea today. She states that she is tolerating PO intake. Plan for a total course of 14 days of PO vancomycin. - Time Spent with Patient Total time spent is greater than 50% in coordination of care (as documented) at patient's floor/unit and/or counseling patient: Internal Medicine: Result - Labs CBC & Chem 7: 07/22/18 05:09 07/22/18 05:09 Labs: Short CBC 07/22/18 Range/Units 05:09 WBC 6.7 (4.3-11.1) K/mcL Hgb 9.5 L (11.5-15.4) g/dL Hct 30.5 L (35.3-44.9) % Plt Count 168 (140-400) K/mcL Neutrophils # 5.3 (1.6-8.9) K/mcL BMP 07/22/18 05:09 Sodium 138 Potassium 4.6 Chloride 105 Carbon Dioxide 31 H BUN 13 Creatinine < 0.20 L Glucose 86 Calcium 8.4 L - ABG Interpretation ABG results: PT/INR, D-dimer PT 15.1 Seconds (9.4-12.1) H 07/19/18 06:05 - VTE Documentation of Mechanical Device: Intermittent pneumatic compression device Consult Discharge Plan - Plan Referrals: Arslan Victoria, [employer]INE [employer] [Primary Care Provider] - <Dagoberto Mcdaniels - Last Filed: 07/22/18 15:55> Hospitalist Progress Note - Encounter Date of Encounter: 07/22/18 - Exam Vitals: Temp Pulse Resp BP Pulse Ox 97.8 F 72 15 133/63 100 07/22/18 07:52 07/22/18 07:52 07/22/18 07:52 07/22/18 07:52 07/22/18 07:52 - Assessment and Plan (1) Clostridium difficile colitis Current Visit: Yes Status: Acute (2) Hyperthyroidism Current Visit: Yes Status: Chronic (3) Atrial fibrillation with RVR Current Visit: Yes Status: Acute (4) DVT prophylaxis Current Visit: No Status: Acute (5) Epigastric pain Current Visit: Yes Status: Acute (6) Afib Current Visit: Yes Status: Chronic (7) CAD (coronary artery disease) Current Visit: No Status: Chronic (8) HTN (hypertension) Current Visit: No Status: Chronic (9) Type 2 diabetes mellitus Current Visit: No Status: Resolved - Time Spent with Patient Total time spent is greater than 50% in coordination of care (as documented) at patient's floor/unit and/or counseling patient: Internal Medicine: Result - Labs CBC & Chem 7: 07/22/18 05:09 07/22/18 05:09 Labs: Short CBC 07/22/18 Range/Units 05:09 WBC 6.7 (4.3-11.1) K/mcL Hgb 9.5 L (11.5-15.4) g/dL Hct 30.5 L (35.3-44.9) % Plt Count 168 (140-400) K/mcL Neutrophils # 5.3 (1.6-8.9) K/mcL BMP 07/22/18 05:09 Sodium 138 Potassium 4.6 Chloride 105 Carbon Dioxide 31 H BUN 13 Creatinine < 0.20 L Glucose 86 Calcium 8.4 L - ABG Interpretation ABG results: PT/INR, D-dimer PT 15.1 Seconds (9.4-12.1) H 07/19/18 06:05 - Attending Attestation I examined this patient and my medical decision-making was reviewed with the Resident Physician on 07/22/18. I agree with the documented findings, disposition and treatment plan as described except to the extent set forth below. Ms Mcdaniels is currently admitted for abd pain and C diff colitis. She remains moderate to high risk due to potential for worsening clinical status. Ms Mcdaniels is still having epigastric pain. No fever or chills. Tolerating PO Vancomycin. Still with diarrhea (chronic with hyperthyroid). Appetite good. Exam alert Mild distress due to pain Mucus membranes dry Heart irreg and not tachy No wheeze abd soft with epigastric tenderness No edema I/P 1. C diff colitis 2. Abd pain - ? related to C diff. CT and EGD negative 3. Hyperthyroid Further diagnoses and plan as above. <Moe Mcdanielsin A - Last Filed: 07/22/18 15:55> (6) Afib Qualifiers: Atrial fibrillation type: chronic Qualified Code(s): I48.2 - Chronic atrial fibrillation (7) CAD (coronary artery disease) Qualifiers: Coronary Disease-Associated Artery/Lesion type: [place] artery [place] vs. 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
[2018-07-22] MEDS: methIMAzole 5 MG TABLET PO SCH (08:48)
[2018-07-22] MEDS: Apixaban 5 MG TABLET PO SCH ×2 (08:48→21:24)
[2018-07-22] MEDS: predniSONE 20 MG TABLET PO SCH (08:48)
[2018-07-22] MEDS: Vancomycin Oral Soln 125 MG/2.5 ML UDC PO SCH ×4 (08:48→21:25)
[2018-07-22] MEDS: Insulin LISPRO 300 UNITS/3 ML VIAL SQ SCH ×3 (08:48→16:46)
[2018-07-22] MEDS: Diltiazem CD (24hr) 120 MG CAPSULE PO SCH (08:48)
[2018-07-22] MEDS: Ondansetron 4 MG/2 ML VIAL IVP PRN (08:48)
[2018-07-22] MEDS: ALPRAZolam 0.5 MG TABLET PO PRN (11:06)
[2018-07-22] MEDS: OXYCODONE Oral CONC 10 MG/0.5 ML ORAL.SYG SL PRN (11:06)
[2018-07-22] MEDS: traMADol 50 MG TABLET PO PRN (15:45)
[2018-07-22] MEDS: *HR* FentaNYL (PF) 100 MCG/2 ML VIAL IVP PRN (18:27)
[2018-07-22] MEDS ORDERED: GI Cocktail 40 ML EACH PO ONE (20:43)
[2018-07-22] MEDS: Pantoprazole 40 MG VIAL IVP SCH (21:23)
[2018-07-23] MEDS: Insulin LISPRO 300 UNITS/3 ML VIAL SQ SCH ×5 (02:47→21:06)
[2018-07-23] MEDS: OXYCODONE Oral CONC 10 MG/0.5 ML ORAL.SYG SL PRN ×2 (04:09→10:26)
[2018-07-23] MEDS: Pantoprazole 40 MG VIAL IVP SCH (05:56)
[2018-07-23 07:15] LABS: Eosinophils # 0.1 K/mcL (0.0-0.6); Eosinophils % 1.3 %; Hematocrit 31.2 % (35.3-44.9); Hemoglobin 9.7 g/dL (11.5-15.4); Immature Granulocytes % 0.2 % (0-4); Lymphocytes # 0.8 K/mcL (0.6-4.6); Lymphocytes % 16.7 %; Mean Corpuscular HGB Conc 31.1 g/dL (31.6-35.5); Mean Corpuscular Hemoglobin 29.8 pg (28.0-33.3); Mean Corpuscular Volume 95.7 fL (83.0-100.0); Mean Platelet Volume 11.8 fL (9.4-12.4); Monocytes # 0.4 K/mcL (0.0-1.3); Monocytes % 7.5 %; Neutrophils # 3.6 K/mcL (1.6-8.9); Platelet Count 159 K/mcL (140-400); Red Blood Count 3.26 M/mcL (3.82-4.97); Segmented Neutrophils % 74.3 %
[2018-07-23 07:32] LABS: BUN/Creatinine Ratio 42 (6-26); Blood Urea Nitrogen 13 mg/dL (8-23); Calcium 8.7 mg/dL (8.6-10.3); Carbon Dioxide 29 mEq/L (23-29); Chloride 105 mEq/L (98-107); Glucose 94 mg/dL (70-105); Osmolality,Calculated 284 (280-300); Sodium 137 mEq/L (136-145); eGFR For Non-African Americans > 60 (> 60)
--- NOTE | 2018-07-23 07:49 | Internal Med Progress Note ---
<Peyman Wilson - Last Filed: 07/23/18 15:07> Hospitalist Progress Note - Encounter Date of Encounter: 07/23/18 Time of Encounter: 10:00 - Exam Vitals: Temp Pulse Resp BP Pulse Ox 97.6 F 70 16 129/52 98 07/23/18 11:42 07/23/18 11:42 07/23/18 11:42 07/23/18 11:42 07/23/18 11:42 Exam: . - Assessment and Plan (1) Clostridium difficile colitis Current Visit: Yes Status: Acute (2) Epigastric pain Current Visit: Yes Status: Acute (3) HTN (hypertension) Current Visit: No Status: Chronic (4) Hyperthyroidism Current Visit: Yes Status: Chronic (5) Atrial fibrillation with RVR Current Visit: Yes Status: Acute (6) CAD (coronary artery disease) Current Visit: No Status: Chronic (7) Afib Current Visit: Yes Status: Chronic (8) DVT prophylaxis Current Visit: No Status: Acute - Time Spent with Patient Total time spent is greater than 50% in coordination of care (as documented) at patient's floor/unit and/or counseling patient: Internal Medicine: Result - Labs CBC & Chem 7: 07/23/18 06:57 07/23/18 06:57 Labs: Short CBC 07/23/18 Range/Units 06:57 WBC 4.8 (4.3-11.1) K/mcL Hgb 9.7 L (11.5-15.4) g/dL Hct 31.2 L (35.3-44.9) % Plt Count 159 (140-400) K/mcL Neutrophils # 3.6 (1.6-8.9) K/mcL BMP 07/23/18 06:57 Sodium 137 Potassium 5.0 Chloride 105 Carbon Dioxide 29 BUN 13 Creatinine 0.31 L Glucose 94 Calcium 8.7 - ABG Interpretation ABG results: PT/INR, D-dimer PT 15.1 Seconds (9.4-12.1) H 07/19/18 06:05 Consult Discharge Plan - Plan Referrals: Arslan Victoria, [employer] [Primary Care Provider] - - Attending Attestation I saw evaluated and examined this patient and my medical decision-making was reviewed with the Resident Physician, Yeimi Hoffman. I agree with the documented findings, disposition and treatment plan as described except to any changes set forth below. We independently had [id number] contact with the patient. Patient continues to have epigastric abdominal pain although it is less intense compared to yesterday. She has also been having diarrhea and has had 2 episodes of loose stools this morning. No nausea or vomiting. No fever or chills reported. On examination, patient is thin built, awake and alert. Heart sounds are normal. Breath sounds are normal. Does have mild epigastric tenderness. No guarding or rigidity Bowel sounds audible. C. difficile colitis: Continue vancomycin. Consult PTOT and case management social worker for discharge planning. Moderate risk for complications. Atrial fibrillation: Rate controlled. On anticoagulation with Eliquis. Diabetes mellitus type 2: Fairly controlled. Continue current insulin regimen. Epigastric abdominal pain: Etiology uncertain. Appears to be improving overall. Patient has had multiple imaging studies. No abnormalities clearly identified. May have underlying chronic pancreatitis. We will check for stool elastase. Follow up outpatient with GI. <Yeimi Hoffman N - Last Filed: 07/23/18 15:36> Hospitalist Progress Note - Encounter Date of Encounter: 07/23/18 Time of Encounter: 07:49 - Subjective Interval History: Ms. Mcdaniels is a 63-year old female who was admitted to the hospital on 2017 due to chest and abdominal pain. She was found to be in Afib with RVR in the ED and was started on a cardizem drip. She was found to have low TSH at < 0.010 and elevated free T4 at 4.17. Other significant laboratory findings were as follows: total bilirubin 1.7, direct bilirubin 0.8, alkaline phosphatase 484 , albumin 3.0, and lipase 3. She was evaluated by cardiology, and was recommended to followup as an outpatient after discharge for further management of afib. She underwent EGD to rule out anastomotic ulcer at the site of her prior gastric bypass. EGD revealed no acute abnormalities. She has a history of diarrhea secondary to hyperthyroidism, and reports 6-7 bowel movements daily; however, nursing staff reported concern for C. difficile due to foul-smelling stool. Stool testing was positive for C. difficile toxin B gene and she was started on PO vancomycin. 07/23 - Patient reports improved epigastric pain, though states that it is still 8/10 with radiation to her back. She is tolerating PO intake well. She states that she is still having 6-7 episodes of diarrhea per day, which is normal for her. She denies any foul-smelling stool. Her daughter was present this afternoon and requested to speak to a physician about possible transfer as the patient's primary team is in [place]. Patient's daughter was updated regarding her status and plans for discharge, and was informed that hospital transfers are reserved for instances in which there are necessary services that cannot be provided by the patient's current facility. She voiced understanding, and was reassurred that if the patient qualified for ECF, we would make every effort to have the patient placed closer to her primary team; however, if she did not qualify for ECF/rehab, she would be discharged home tomorrow and could still follow with her team in [place]. Her daughter voiced agreement with this plan and stated that she will return tomorrow to follow with any updates. - Exam Vitals: Temp Pulse Resp BP Pulse Ox 99.0 F 80 16 134/65 99 07/23/18 05:15 07/23/18 05:15 07/23/18 05:15 07/23/18 05:15 07/23/18 05:15 Exam: * General: Ill-appearing elderly female in no acute distress. She is sitting in the chair at the bedside eating breakfast. She answers questions appropriately. * HEENT: Atraumatic and normocephalic. * Cardiovascular: Irregular rhythm and rate. S1 and S2 present. * Respiratory: Lungs clear bilaterally. Chest rises and falls symmetrically. * Gastrointestinal: Abdomen is soft. Epigastric tenderness present. Patient demonstrates voluntary guarding, particularly in the epigastric area. * Extremities: No clubbing, cyanosis, or edema. - Assessment and Plan (1) Epigastric pain Current Visit: Yes Status: Acute Assessment and Plan: Patient continues to have epigastric pain, which she rates as 8/10. It does radiate to her back. She is currently on IV protonix and was given a GI cocktail today. She is tolerating PO intake. Suspect that her epigastric pain may be secondary to chronic pancreatitis - stool elastase pending. Plan to continue supportive management and will instruct patient to follow up with GI as outpatient. (2) Clostridium difficile colitis Current Visit: Yes Status: Acute Assessment and Plan: Day #4 of PO vancomycin. Patient denies foul-smelling stools. Will continue vancomycin and plan to d/c patient with antibiotics needed to complete full 14- day course of therapy. (3) Hyperthyroidism Current Visit: Yes Status: Chronic Assessment and Plan: History of hyperthyroidism controlled with methamazole. Will continue that medication at this time. She is planned for a thyroidectomy on August 08. (4) Atrial fibrillation with RVR Current Visit: Yes Status: Acute Assessment and Plan: Patient is rate-controlled with cardizem 120mg PO. Plan to continue that medication, along with eliquis for anticoagulation. (5) Afib Current Visit: Yes Status: Chronic (6) DVT prophylaxis Current Visit: No Status: Acute Assessment and Plan: Continue Eliquis. DVT Prophylaxis: Patient is anticoagulated with Eliquis. - Time Spent with Patient Total time spent is greater than 50% in coordination of care (as documented) at patient's floor/unit and/or counseling patient: Internal Medicine: Result - Labs CBC & Chem 7: 07/23/18 06:57 07/23/18 06:57 Labs: Short CBC 07/23/18 Range/Units 06:57 WBC 4.8 (4.3-11.1) K/mcL Hgb 9.7 L (11.5-15.4) g/dL Hct 31.2 L (35.3-44.9) % Plt Count 159 (140-400) K/mcL Neutrophils # 3.6 (1.6-8.9) K/mcL BMP 07/23/18 06:57 Sodium 137 Potassium 5.0 Chloride 105 Carbon Dioxide 29 BUN 13 Creatinine 0.31 L Glucose 94 Calcium 8.7 - ABG Interpretation ABG results: PT/INR, D-dimer PT 15.1 Seconds (9.4-12.1) H 07/19/18 06:05 - VTE Documentation of Mechanical Device: Intermittent pneumatic compression device <Sr Steveaustyn - Last Filed: 07/23/18 15:07> (3) HTN (hypertension) Qualifiers: Hypertension type: essential hypertension Qualified Code(s): I10 - Essential (primary) hypertension (6) CAD (coronary artery disease) Qualifiers: Coronary Disease-Associated Artery/Lesion type: [place] artery [place] vs. transplanted heart: [place] heart Associated angina: without angina Qualified Code(s): I25.10 - Atherosclerotic heart disease of [place] coronary artery without angina pectoris (7) Afib Qualifiers: Atrial fibrillation type: chronic Qualified Code(s): I48.2 - Chronic atrial fibrillation <Yeimi Hoffman - Last Filed: 07/23/18 15:36> (5) Afib Qualifiers: Atrial fibrillation type: chronic Qualified Code(s): I48.2 - Chronic atrial fibrillation
[2018-07-23] MEDS: methIMAzole 5 MG TABLET PO SCH (08:13)
[2018-07-23] MEDS: predniSONE 20 MG TABLET PO SCH (08:13)
[2018-07-23] MEDS: Apixaban 5 MG TABLET PO SCH ×2 (08:13→20:53)
[2018-07-23] MEDS: Diltiazem CD (24hr) 120 MG CAPSULE PO SCH (08:13)
[2018-07-23] MEDS: Vancomycin Oral Soln 125 MG/2.5 ML UDC PO SCH ×4 (08:15→20:54)
[2018-07-23] MEDS: traMADol 50 MG TABLET PO PRN (08:24)
[2018-07-23] MEDS: ALPRAZolam 0.5 MG TABLET PO PRN ×2 (08:25→21:07)
[2018-07-23] MEDS ORDERED: GI Cocktail 40 ML EACH PO ONE (10:09)
[2018-07-23] MEDS: *HR* FentaNYL (PF) 100 MCG/2 ML VIAL IVP PRN (13:30)
[2018-07-23] MEDS: Ondansetron 4 MG/2 ML VIAL IVP PRN ×2 (13:32→21:07)
[2018-07-23] MEDS: *HR* OxyCODONE ER (12 HR) 10 MG TABLET PO SCH (20:54)
[2018-07-24 04:35] LABS: Basophils % 0.2 %; Eosinophils # 0.1 K/mcL (0.0-0.6); Eosinophils % 1.6 %; Hematocrit 30.7 % (35.3-44.9); Hemoglobin 9.2 g/dL (11.5-15.4); Immature Granulocytes % 0.2 % (0-4); Lymphocytes # 0.9 K/mcL (0.6-4.6); Lymphocytes % 17.1 %; Mean Corpuscular Hemoglobin 28.6 pg (28.0-33.3); Mean Corpuscular Volume 95.3 fL (83.0-100.0); Mean Platelet Volume 11.5 fL (9.4-12.4); Monocytes # 0.3 K/mcL (0.0-1.3); Monocytes % 6.9 %; Neutrophils # 3.7 K/mcL (1.6-8.9); Platelet Count 165 K/mcL (140-400); Red Blood Count 3.22 M/mcL (3.82-4.97); Red Cell Distribution Width 15.9 % (11.5-14.5)
[2018-07-24 04:54] LABS: BUN/Creatinine Ratio 46 (6-26); Blood Urea Nitrogen 12 mg/dL (8-23); Calcium 8.9 mg/dL (8.6-10.3); Carbon Dioxide 32 mEq/L (23-29); Chloride 104 mEq/L (98-107); Glucose 77 mg/dL (70-105); Osmolality,Calculated 287 (280-300); Potassium 4.3 mEq/L (3.5-5.1); Sodium 139 mEq/L (136-145); eGFR For Non-African Americans > 60 (> 60)
[2018-07-24] MEDS: *HR* OxyCODONE ER (12 HR) 10 MG TABLET PO SCH (06:41)
[2018-07-24 08:25] VITALS: BP 148/73
--- NOTE | 2018-07-24 08:36 | Discharge Summary ---
<Yeimi Hoffman N - Last Filed: 07/24/18 10:39> - NOTES TO OUTPATIENT PROVIDER Notes to Outpatient Provider: Ms. Mcdaniels presented with acute abdominal pain that was 10/10 in severity. EGD demonstrated no acute pathology. She was found to have C. difficile infection on admission. She was started on PO vancomycin with prescription to finish antibiotic course. Orders not resulted at time of discharge: Pending orders 07/23/18 11:33 Pancreatic Elastase, Fecal Routine Date of Encounter: 07/24/18 Time of Encounter: 08:35 - Discharge Diagnosis (1) Epigastric pain Priority: Primary Status: Acute (2) Hyperthyroidism Priority: Secondary Status: Chronic (3) Atrial fibrillation with RVR Priority: Secondary Status: Acute (4) Afib Priority: Secondary Status: Chronic Qualifiers: Atrial fibrillation type: chronic Qualified Code(s): I48.2 - Chronic atrial fibrillation (5) DVT prophylaxis Priority: Secondary Status: Acute (6) Clostridium difficile colitis Priority: Secondary Status: Acute Hospital course: Ms. Mcdaniels is a 63-year old female who was admitted to the hospital on 2017 due to chest and abdominal pain. She was found to be in Afib with RVR in the ED and was started on a cardizem drip. She was found to have low TSH at < 0.010 and elevated free T4 at 4.17. Other significant laboratory findings were as follows: total bilirubin 1.7, direct bilirubin 0.8, alkaline phosphatase 484 , albumin 3.0, and lipase 3. She was evaluated by cardiology, and was recommended to followup as an outpatient after discharge for further management of afib. She underwent EGD to rule out anastomotic ulcer at the site of her prior gastric bypass. EGD revealed no acute abnormalities. She has a history of diarrhea secondary to hyperthyroidism, and reports 6-7 bowel movements daily; however, nursing staff reported concern for C. difficile due to foul-smelling stool. Stool testing was positive for C. difficile toxin B gene and she was started on PO vancomycin. Patient had improved epigastric pain prior to discharge, but still reported 8/ 10 pain on day of discharge. She tolerated PO intake well. She was discharged home and instructed to follow up with her PCP in 3-5 days. She is planned for thyroidectomy on 08/08. She was instructed to continue taking lactobacillus and PO vancomycin for a total antibiotic course of 12 days. She was instructed to return to the ED if symptoms worsened or if new complaints/concerns were to arise. Discharge discussed with: patient, family, nurse - Time Spent with Patient Total time spent providing and/or coordinating discharge services: - Discharge Medications Prescriptions: Lactobacillus [Culturelle] 1 each PO DAILY #90 cap.sprink Vancomycin HCl 125 mg PO QID #36 cap Home Medications: ALPRAZolam [Xanax 0.5 MG Tablet] 0.5 mg PO TID 04/11/18 [History] Aspirin 325 mg PO DAILY 04/11/18 [History] Bumetanide [Bumex] 1 mg PO DAILY 04/11/18 [History] Digoxin [Lanoxin] 0.125 mg PO DAILY 04/11/18 [History] Ferrous Sulfate [Iron] 325 mg PO BID 04/11/18 [History] Furosemide [Lasix] 20 mg PO DAILY 04/11/18 [History] Isosorbide MONOnitrate (24 HR) [Imdur] 30 mg PO DAILY 04/11/18 [History] Lisinopril [Zestril] 40 mg PO DAILY 04/11/18 [History] Nitroglycerin [Nitrostat] 0.4 mg SL Q5M PRN 04/11/18 [History] Pregabalin [Lyrica] 75 mg PO BID 04/11/18 [History] Simvastatin [Zocor] 20 mg PO HS 04/11/18 [History] methIMAzole [Methimazole] 10 mg PO DAILY 04/11/18 [History] Apixaban [Eliquis] 5 mg PO BID #60 tablet 04/13/18 [Rx] Diltiazem CD (24hr) [Cardizem CD] 120 mg PO DAILY #30 cap.er.24h 04/13/18 [Rx] Amitriptyline [Elavil] 25 mg PO HS 05/07/18 [History] Amlodipine Besylate 2.5 mg PO DAILY 05/07/18 [History] Venlafaxine HCl [Venlafaxine HCl ER] 75 mg PO DAILY 05/07/18 [History] Alendronate Sodium [Fosamax] 10 mg PO DAILY 07/23/18 [History] Oxycodone HCl [Oxycontin] 10 mg PO Q12H 07/23/18 [History] Lactobacillus [Culturelle] 1 each PO DAILY #90 cap.sprink 07/24/18 [Rx] Vancomycin HCl 125 mg PO QID #36 cap 07/24/18 [Rx] Allergies/Adverse Reactions: 3 Allergy/AdvReac Type Severity Reaction Status Date / Time hydrocodone [From Vicodin] Allergy Swelling Verified 09/20/17 15:38 of Lip/Tongue/Throat morphine AdvReac Rash Verified 11/20/17 16:57 Date of admission: 07/20/18 17:20 Primary care physician: Arslan Victoria CNP Consults: 07/23/18 11:30 Consult to Occupational Therapy [CONS] Routine Comment: Evaluate, develop and implement POC Reason for Consult: Difficulty ambulating Does patient have active BEDREST order?: No Is patient medically & hemodynamically stable?: Yes Consult to Physical Therapy [CONS] Routine Comment: Evaluate, develop and implement POC Reason for Consult: Difficulty ambulating Does patient have active BEDREST order?: No Is patient medically & hemodynamically stable?: Yes Consult to Map Plotter [CONS] Routine Reason for SW Consult: Home health services Discharging clinician: Yeimi Hoffman Anticipated date of discharge: 07/24/18 - Constitutional Vitals: Temp Pulse Resp BP Pulse Ox 98.1 F 76 18 148/73 99 07/24/18 08:23 07/24/18 08:23 07/24/18 08:23 07/24/18 08:23 07/24/18 08:23 Exam: * General: Ill-appearing elderly female in no acute distress. She is sitting in bed resting comfortably.. She answers questions appropriately. * HEENT: Atraumatic and normocephalic. * Cardiovascular: Irregular rhythm and rate. S1 and S2 present. * Respiratory: Lungs clear bilaterally. Chest rises and falls symmetrically. * Gastrointestinal: Abdomen is soft. Epigastric tenderness present. Patient demonstrates voluntary guarding, particularly in the epigastric area. * Extremities: No clubbing, cyanosis, or edema. - Patient Status Disposition: Home, Self-Care Condition: Fair Functional capacity at discharge: independent ambulation Overall status at discharge: patient is progressing back to baseline - Discharge Instructions Instructions: Vancomycin (By mouth), Atrial Fibrillation (DC), Clostridium Difficile Infection (DC) Follow Up With: Arslan Victoria CNP [Primary Care Provider] - 08/01/18 10:15 am Willie Gilmore MD [Partnered Physician] - (EPigastric abdominal pain/ ? Chronic pancreatitis) Additional Instructions: Follow up with your PCP in 3-5 days. Continue taking lactobacillus and vancomycin as directed. Be sure to take vancomycin as directed until all of the medication is gone. Return to the emergency room if symptoms worsen, or if new complaints or concerns arise. - Diet and Activity Activity: resume usual activities as tolerated Diet: other (Cardiac diet) - VTE Documentation of Mechanical Device: Intermittent pneumatic compression device <Peyman Wilson - Last Filed: 07/24/18 14:20> Orders not resulted at time of discharge: Pending orders 07/23/18 11:33 Pancreatic Elastase, Fecal Routine Date of Encounter: 07/24/18 Time of Encounter: 14:16 - Discharge Diagnosis (1) Hyperthyroidism Status: Chronic (2) Atrial fibrillation with RVR Status: Acute (3) Afib Status: Chronic Qualifiers: Atrial fibrillation type: chronic Qualified Code(s): I48.2 - Chronic atrial fibrillation (4) DVT prophylaxis Status: Acute (5) Epigastric pain Status: Acute (6) Clostridium difficile colitis Status: Acute Hospital course: Ms. Mcdaniels is a 63 year old female - Time Spent with Patient Total time spent providing and/or coordinating discharge services: Greater than 30 minutes (40 min) Date of admission: 07/20/18 17:20 Primary care physician: Arslan Victoria CNP Consults: 07/23/18 11:30 Consult to Physical Therapy [CONS] Routine Comment: Evaluate, develop and implement POC Reason for Consult: Difficulty ambulating Does patient have active BEDREST order?: No Is patient medically & hemodynamically stable?: Yes Consult to Map Plotter [CONS] Routine Reason for SW Consult: Home health services - Constitutional Vitals: Temp Pulse Resp BP Pulse Ox 98.1 F 76 18 148/73 99 07/24/18 08:23 07/24/18 08:23 07/24/18 08:23 07/24/18 08:23 07/24/18 08:23 Exam: General: Patient is alert, mild distress, thin built Respiratory: Good respiratory effort. Normal breath sounds. No wheezing or crackles. Cardiovascular: Regular rate and rhythm. s1 and s2 normal No clicks, rubs, gallops, or murmurs. No pedal edema Abdomen: Abdomen is soft, epigastric tenderness. Bowel sounds are present Musculoskeletal: Spontaneously moving all extremities Skin: warm, dry, intact. Neuro: Alert oriented x 3 normal cranial nerves, no focal deficits Psych: Patient's affect is anxious - Attending Attestation I saw, evaluated and examined this patient and my medical decision-making was reviewed with the Nurse Practitioner. I agree with the documented findings, disposition and treatment plan as described except to any changes set forth below. We independently had [id number] contact with the patient. Patient initially hospitalized with acute epigastric abdominal pain. Was evaluated for this by GI and underwent upper GI endoscopy which did not show any acute process. She also had an abdominal MRI and CT angiogram of the abdomen and pelvis which did not show any significant abnormalities. She did have loose stools which was initially presumed to be related to her hyperthyroidism. However stools were tested for C. difficile and it was positive. Patient has been placed on oral vancomycin. Patient continues to report intermittent epigastric abdominal pain although no clear etiology has been ascertained at this time. I suspect patient may have chronic pancreatitis and her lipase is 3. Stool studies have been sent for pancreatic elastase. Would recommend the patient follow up with GI as outpatient for further management and evaluation of abdominal pain. In the meantime, patient will be discharged on pain medications. She will complete 14 day treatment with vancomycin orally. She is also scheduled to undergo surgery for hyperthyroidism in 2 weeks.
[2018-07-24] MEDS ORDERED: Lactobacillus 1 EACH CAP.SPRINK PO SCH (09:00)
[2018-07-24] MEDS: methIMAzole 5 MG TABLET PO SCH (10:29)
[2018-07-24] MEDS: Apixaban 5 MG TABLET PO SCH (10:29)
[2018-07-24] MEDS: Diltiazem CD (24hr) 120 MG CAPSULE PO SCH (10:29)
[2018-07-24] MEDS: OXYCODONE Oral CONC 10 MG/0.5 ML ORAL.SYG SL PRN (10:30)
[2018-07-24] MEDS: Ondansetron 4 MG/2 ML VIAL IVP PRN (10:30)
[2018-07-24] MEDS: Vancomycin Oral Soln 125 MG/2.5 ML UDC PO SCH ×2 (10:31→12:23)
[2018-07-24] MEDS: Insulin LISPRO 300 UNITS/3 ML VIAL SQ SCH ×2 (10:37→15:12)
[2018-07-24 17:34] LABS: Alkaline Phosphatase 504 U/L (40-120); Alkaline Phosphatase Bone 131 U/L (0-55)
[2018-07-25 11:23] LABS: Alkaline Phosphatase Liver 373 U/L (0-94); Alkaline Phosphatase Other 0 U/L
== END 2018-07-24 16:12 | disposition home or self-care (01) | DRG 372 ==
LOC: EMEROOARM 05:38 → 2NENU 05:38 → SUATTDRO 09:37 → 2NENU 10:21 → SUATTDRO 07-20 17:20
PROVIDERS: ADMIT Student in an Organized Health Care Education/Training Program; ATTEND Internal Medicine
PROC: ENDOEBX (2018-07-20 13:00)

== ENCOUNTER 2018-11-22 16:02 | Inpatient (IN) ==
--- NOTE | 2018-11-22 16:18 | Emergency Department Note ---
Disposition Clinical Impression: Atrial fibrillation with rapid ventricular response, Chest pain, Acute respiratory distress COPD (chronic obstructive pulmonary disease) Qualifiers: COPD type: unspecified COPD Qualified Code(s): J44.9 - Chronic obstructive pulmonary disease, unspecified Disposition: Admitted As Inpatient Condition: Critical Time of Disposition: 17:43 General Adult HPI - General Chief complaint: ED Chest Pain Stated complaint: SVT Time Seen by Provider: 11/22/18 16:10 Source: patient, EMS Limitations: no limitations Nursing Notes Reviewed: Yes Vital Signs Reviewed: Yes - History of Present Illness HPI Narrative: I did see the patient immediately upon arrival and also spoke with the paramedics and the stories that she does have an extensive history of heart disease including stents and atrial fibrillation and presents today with chest pain and shortness of breath which began at home last night and is constant with radiation to the back which is typical of her ischemic events. She does have a pleuritic aspect. She does not have any diaphoresis. Paramedics stated the patient had a rapid heart rate but was a poor quality EKG and they thought was SVT. No medication has been yet administered. Social history: Has never smoked. The patient does use 4 L oxygen nasal cannula at home Pain Scale: 8 - Related Data Home Medications Medication Instructions Recorded Confirmed RX: ALPRAZolam [Xanax 0.5 MG 0.5 mg PO TID 04/11/18 11/26/18 Tablet] RX: Aspirin 325 mg PO DAILY 04/11/18 11/26/18 RX: Bumetanide [Bumex] 1 mg PO DAILY 04/11/18 11/26/18 RX: Digoxin [Lanoxin] 0.125 mg PO DAILY 04/11/18 11/26/18 RX: Ferrous Sulfate [Iron] 325 mg PO Q48H 04/11/18 11/26/18 RX: Furosemide [Lasix] 20 mg PO BID 04/11/18 11/26/18 RX: Isosorbide MONOnitrate (24 HR) 30 mg PO DAILY 04/11/18 11/26/18 [Imdur] RX: Lisinopril [Zestril] 40 mg PO DAILY 04/11/18 11/26/18 RX: Nitroglycerin [Nitrostat] 0.4 mg SL Q5M PRN 04/11/18 11/26/18 RX: Pregabalin [Lyrica] 75 mg PO BID 04/11/18 11/26/18 RX: Simvastatin [Zocor] 20 mg PO HS 04/11/18 11/26/18 RX: methIMAzole [Methimazole] 40 mg PO DAILY 04/11/18 11/26/18 RX: Amitriptyline [Elavil] 25 mg PO HS 05/07/18 11/26/18 RX: Venlafaxine HCl [Venlafaxine 75 mg PO DAILY 05/07/18 11/26/18 HCl ER] RX: Alendronate Sodium [Fosamax] 70 mg PO DAVIS 11/22/18 11/26/18 RX: Oxycodone HCl [Roxybond] 5 mg PO BID PRN 11/22/18 11/26/18 Previous Rx's Medication Instructions Recorded RX: Apixaban [Eliquis] 5 mg PO BID #60 tablet 04/13/18 RX: Diltiazem CD (24hr) [Cardizem 120 mg PO DAILY #30 cap.er.24h 04/13/18 CD] RX: Lactobacillus [Culturelle] 1 each PO DAILY #90 cap.sprink 07/24/18 Amoxicillin/Clavulanate [Augmentin] 875 mg PO BIDWM #8 tablet 11/26/18 Allergies Allergy/AdvReac Type Severity Reaction Status Date / Time hydrocodone [From Vicodin] Allergy Swelling Verified 11/26/18 19:34 of Lip/Tongue/Throat morphine AdvReac Rash Verified 11/26/18 19:34 All systems ED: reviewed and negative except as stated. Review of Systems: As Per HPI Past Medical History - Past Medical History Medical history: Reports: atrial fibrillation, CHF, COPD, coronary artery disease, hyperlipidemia, hypertension, osteoporosis, thyroid disease, other Surgical history: Reports: cholecystectomy, coronary bypass (CABG), hysterectomy, other Psychiatric history: Reports: depression, other - Social History Smoking Status: Never smoker Smokeless Tobacco Status: No Alcohol use: Reports: none Drug use: Reports: none Physical Exam CONSTITUTIONAL: Moderate respiratory distress, thin, chronically ill-appearing, alert and oriented 3 HEAD: Normocephalic; atraumatic. EYES: PERRL, no scleral icterus. NOSE: The nose is normal in appearance without rhinorrhea RESP: Normal chest excursion with respiration; breath sounds clear and equal bilaterally; no wheezes, rhonchi, or rales CARD: Irregularly irregular and tachycardic rhythm, without murmurs, rub or gallop ABD: Non-distended; non-tender, soft,without rigidity, rebound or guarding SKIN: Normal for age and race; warm and dry; no apparent lesions extremities: Pulses 2+ and equal all 4 extremities, 2+ bilateral lower extre mity edema which is symmetric. Without erythema or signs of infection - General Limitations: no limitations General appearance: alert, in distress Course Vital Signs Temperature 98.8 F 11/22/18 16:04 Pulse Rate 168 11/22/18 16:04 Respiratory Rate 34 11/22/18 16:04 Blood Pressure 165/108 11/22/18 16:04 O2 Sat by Pulse Oximetry 100 11/22/18 16:04 Temperature 98.4 F 11/26/18 11:33 Pulse Rate 70 11/26/18 11:33 Respiratory Rate 18 11/26/18 11:33 Blood Pressure 102/56 11/26/18 11:33 O2 Sat by Pulse Oximetry 96 11/26/18 11:33 Oxygen Delivery Oxygen Delivery Nasal Cannula Medical Decision Making - MDM Narrative Medical decision making narrative: Patient will receive Cardizem bolus 10 mg and 10 mg an hour. I did review the EKG showing atrial fibrillation with a rapid ventricular response with a rate of [address] and T-wave changes. The patient will be admitted to the hospital. We will watch her closely on the monitor. She is in the trauma 1 room and we do have good amt of staff in the room assisting with her care. Oxygen was increased but her saturation was 96% on 4 L nasal cannula. Blood pressure in the 170s so I do have some room to move as far as the medications and the patient does not need cardioversion at this time 1618 I did go back and check on the patient and the heart rate did decrease from the 180s down to the 140s and her blood pressure was 145 systolic so I did give another 5 mg of IV Cardizem and we will reassess. Her breathing is improved. She is 95% on nasal cannula oxygen and we will try to keep her in the low 90s and she does have chronic lung disease. The patient will be admitted to the hospital. Labs are pending. 1627 Heart rate still in the 140s after the additional 5 mg of Cardizem. The tropon in is just started so will give it about 10 or 15 minutes with consideration of another bolus of Cardizem the heart rate remains high but the patient symptomatically is improved and her chest pain is improved and she is breathing more comfortably. 1638 I did go back and see the patient. Heart rate is now between 98 and 120 bpm. I did speak with Dr. Chin who will see the patient isaac. I do have the hospitalist paged. The patient does have pulmonary edema as well as an effusion on the chest x-ray however her breathing is improved now compared with where was just recently and so the patient will receive Lasix 20 mg and nitroglycerin drip at 10 mics per minutes. The patient will be able to give her more medication however at this time the blood pressure is 120 so we will try to ensure that the blood pressure does not fall 2 months with these medications. This will be a difficult evaluation and management so the patient will be admitted to the intensive care unit and that is also why I asked Dr. Chin to see the patient tonight. She is not a tenuous situation given the fact that her blood pressure may get lower with her pulmonary edema will not be candidate for fluid so may need pressors but she will certainly need close care. 1740 I did speak with the hospitalist who accepts the patient for admission. The patient will go to the stepdown unit. I did speak with Dr. Mendez who said that there are one or 2 beds in the intensive care unit which can be moved to the patient needs to be transferred to the ICU during the night because of worsening condition and so for that reason the patient will be admitted to the hospital. She does take eliquis so will not start heparin 1826 - Medical Records Medical records reviewed: Yes I reviewed the patient's medical records. - Lab Data Lab results reviewed: Yes I reviewed the patient's lab results. Result diagrams: 11/26/18 05:57 11/26/18 05:57 Lab Results 11/22/18 11/22/18 11/22/18 Range/Units 16:11 16:11 16:11 WBC 12.9 H (4.3-11.1) K/mcL RBC 4.33 (3.82-4.97) M/mcL Hgb 12.3 (11.5-15.4) g/dL Hct 39.6 (35.3-44.9) % MCV 91.5 (83.0-100.0) fL MCH 28.4 (28.0-33.3) pg MCHC 31.1 L (31.6-35.5) g/dL RDW 19.3 H (11.5-14.5) % Plt Count 305 (140-400) K/mcL MPV 11.3 (9.4-12.4) fL Immature Gran % 0.5 (0-4) % Seg Neutrophils % 85.2 % Lymphocytes % 9.2 % Monocytes % 4.6 % Eosinophils % 0.2 % Basophils % 0.3 % Neutrophils # 11.0 H (1.6-8.9) K/mcL Lymphocytes # 1.2 (0.6-4.6) K/mcL Monocytes # 0.6 (0.0-1.3) K/mcL Eosinophils # 0.0 (0.0-0.6) K/mcL Basophils # 0.0 (0.0-0.2) K/mcL PT 16.0 H (9.4-12.1) Seconds INR 1.4 APTT 28.9 (26.0-36.0) Seconds Sodium 136 (136-145) mEq/L Potassium 3.7 (3.5-5.1) mEq/L Chloride 104 (98-107) mEq/L Carbon Dioxide 17 L (23-29) mEq/L BUN 6 L (8-23) mg/dL Creatinine 0.30 L (0.60-1.20) mg/dL Est GFR ( Amer) > 60 (> 60) Est GFR (Non-Af Amer) > 60 (> 60) BUN/Creatinine Ratio 20 (6-26) Glucose 140 H (70-105) mg/dL Calculated Osmolality 282 (280-300) Calcium 8.6 (8.6-10.3) mg/dL Troponin I < 0.03 (< 0.04) ng/mL Digoxin < 0.3 L (0.8-2.0) ng/mL - Radiology Data Radiology results reviewed: Yes I reviewed the patient's radiology results. Critical Care Time Critical Care Time: Yes Total Critical Care Time: 90 Attestation: Critical care time included multiple reassessments the patient atrial fibrillation with rapid ventricular response, decreasing blood pressure, pulmonary edema, pleural effusion, acute respiratory distress, interpretation of EKG and laboratory results
[2018-11-22 16:32] LABS: Basophils % 0.3 %; Eosinophils % 0.2 %; Hematocrit 39.6 % (35.3-44.9); Hemoglobin 12.3 g/dL (11.5-15.4); Immature Granulocytes % 0.5 % (0-4); Lymphocytes # 1.2 K/mcL (0.6-4.6); Lymphocytes % 9.2 %; Mean Corpuscular HGB Conc 31.1 g/dL (31.6-35.5); Mean Corpuscular Hemoglobin 28.4 pg (28.0-33.3); Mean Corpuscular Volume 91.5 fL (83.0-100.0); Mean Platelet Volume 11.3 fL (9.4-12.4); Monocytes # 0.6 K/mcL (0.0-1.3); Monocytes % 4.6 %; Platelet Count 305 K/mcL (140-400); Red Blood Count 4.33 M/mcL (3.82-4.97); Red Cell Distribution Width 19.3 % (11.5-14.5); Segmented Neutrophils % 85.2 %
[2018-11-22 16:45] LABS: INR 1.4
[2018-11-22 16:48] LABS: Activated Partial Thrombo Time 28.9 Seconds (26.0-36.0)
[2018-11-22 16:50] LABS: BUN/Creatinine Ratio 20 (6-26); Blood Urea Nitrogen 6 mg/dL (8-23); Calcium 8.6 mg/dL (8.6-10.3); Carbon Dioxide 17 mEq/L (23-29); Chloride 104 mEq/L (98-107); Glucose 140 mg/dL (70-105); Osmolality,Calculated 282 (280-300); Potassium 3.7 mEq/L (3.5-5.1); Sodium 136 mEq/L (136-145); eGFR For Non-African Americans > 60 (> 60)
[2018-11-22 16:51] LABS: Troponin I < 0.03 ng/mL (< 0.04)
[2018-11-22] MEDS ORDERED: *HR* FentaNYL (PF) 100 MCG/2 ML VIAL IVP ONE (16:56)
[2018-11-22] MEDS ORDERED: Furosemide 40 MG/4 ML VIAL IVP ONE (17:36)
[2018-11-22] MEDS ORDERED: Nitroglycerin 25 MG/250 ML INFUS..BTL IVC SCH (17:45)
[2018-11-22] MEDS ORDERED: *HR* Heparin 5,000 UNIT/ML VIAL IVP PRN ×2 (18:05)
[2018-11-22] MEDS ORDERED: *HR* Heparin 5,000 UNIT/ML VIAL IVP ONE (18:05)
[2018-11-22] MEDS ORDERED: Heparin 25,000 UNIT/500 ML D5W 25,000 UNIT/500 ML BAG IVC SCH (18:15)
[2018-11-22] MEDS ORDERED: Nitroglycerin 0.4 MG TAB.SUBL SL PRN (20:27)
[2018-11-22] MEDS ORDERED: Pregabalin 75 MG CAPSULE PO SCH (21:00)
--- NOTE | 2018-11-22 21:04 | Internal Med History&Physical ---
Date of Encounter: 11/22/18 Time of Encounter: 21:01 Internal Medicine - H&P: HPI Chief complaint: palpitations Admitted From: Home Plans for Post Hospital Care: Home History of present illness: Didier Mcdaniels is a 63 year old woman with extensive coronary artery disease status post three-vessel CABG and 9 stents, atrial fibrillation on apixaban and hyperthyroidism who is brought in by EMS with a complaint of chest pain, palpitations and shortness of breath since last night that persisted and worsened during the day. The ER she was seen to be in A. fib with RVR and also have pulmonary vascular congestion that was significant as confirmed by x-ray. He was given 1 dose of furosemide and started on nitroglycerin drip. She also required diltiazem drip for rate control given her lack of response to IV pushes. She is now admitted for further care. On my assessment she says she feels March better than upon her arrival. She reports adherence to her medications but says she did not take her medications today due to how she was feeling. She does report noticing increasing leg swelling but is better now tonight. She says her chest pain is on and off and that she fell 1 month ago on her chest and that the wires from her sternotomy sometimes hurt her. She denies any other complaints at this time. Past Med Surg Social Fam HX - Past Medical History Medical history: atrial fibrillation, CHF, COPD, coronary artery disease, hyperlipidemia, hypertension, osteoporosis, thyroid disease, other Additional medical history: PITTING EDEMA Psychiatric history: depression, other - Past Surgical History Surgical History: cholecystectomy, coronary bypass (CABG), hysterectomy, other Additional surgical history: 3 vessel Bypass. 9 Coronary stents. GASTRIC BYPASS. b/l hip surgeries - Social History Smoking Status: Never smoker Smokeless Tobacco Status: No Alcohol use: none Drug use: none - Family History Father Family Member Ethnicity: Non- Living Status: Hx Family Cardiac Disorders: Yes (CA) Brother Family Member Ethnicity: Non- Living Status: Sister Family Member Ethnicity: Non- Twin of Family Member: Yes, Identical Living Status: Hx Family Cardiac Disorders: Yes (afib) Hx Family Cancer: Yes (Colon) Mother Adopted: No Family Member Ethnicity: Non- Living Status: Hx Family Cardiac Disorders: Yes (CA) Hx Family Respiratory Disorders: No Hx Family Cancer: Yes (Colon ) Hx Family GI Disorders: Yes (Bowel Cancer) Hx Family Endocrine Disorder: Yes (DM) Hx Family Neuromuscular Disorders: No Hx Family Neurologic Disorders: No Hx Family HEENT Disorders: No Hx Family Autoimmune Disorders: No Internal Medicine - H&P: Meds ALPRAZolam [Xanax 0.5 MG Tablet] 0.5 mg PO TID 04/11/18 [History] Aspirin 325 mg PO DAILY 04/11/18 [History] Bumetanide [Bumex] 1 mg PO DAILY 04/11/18 [History] Digoxin [Lanoxin] 0.125 mg PO DAILY 04/11/18 [History] Ferrous Sulfate [Iron] 325 mg PO Q48H 04/11/18 [History] Furosemide [Lasix] 20 mg PO BID 04/11/18 [History] Isosorbide MONOnitrate (24 HR) [Imdur] 30 mg PO DAILY 04/11/18 [History] Lisinopril [Zestril] 40 mg PO DAILY 04/11/18 [History] Nitroglycerin [Nitrostat] 0.4 mg SL Q5M PRN 04/11/18 [History] Pregabalin [Lyrica] 75 mg PO BID 04/11/18 [History] Simvastatin [Zocor] 20 mg PO HS 04/11/18 [History] methIMAzole [Methimazole] 40 mg PO DAILY 04/11/18 [History] Apixaban [Eliquis] 5 mg PO BID #60 tablet 04/13/18 [Rx] Diltiazem CD (24hr) [Cardizem CD] 120 mg PO DAILY #30 cap.er.24h 04/13/18 [Rx] Amitriptyline [Elavil] 25 mg PO HS 05/07/18 [History] Amlodipine Besylate 2.5 mg PO DAILY 05/07/18 [History] Venlafaxine HCl [Venlafaxine HCl ER] 75 mg PO DAILY 05/07/18 [History] Lactobacillus [Culturelle] 1 each PO DAILY #90 cap.sprink 07/24/18 [Rx] Alendronate Sodium [Fosamax] 70 mg PO DAVIS 11/22/18 [History] Oxycodone HCl [Roxybond] 5 mg PO BID 11/22/18 [History] Allergy/AdvReac Type Severity Reaction Status Date / Time hydrocodone [From Vicodin] Allergy Swelling Verified 09/20/17 15:38 of Lip/Tongue/Throat morphine AdvReac Rash Verified 11/20/17 16:57 All Systems PM: A 10-system review of systems was performed and is negative for pertinent findings except as documented above in the HPI. - Constitutional Vitals: Temp Pulse Resp BP Pulse Ox 98.8 F 81 18 136/59 97 11/22/18 16:04 11/22/18 19:42 11/22/18 19:42 11/22/18 19:42 11/22/18 19:42 Exam: Vitals: Reviewed General: Cachectic woman who appears older than her stated age lying in bed in no acute distress. Skin: Decreased turgor, thin, warm HEENT: Moist mucous membranes. No conjunctivae pallor. Neck: No lymphadenopathy. No JVD. No carotid bruits. No palpable thyroid. Chest: Diminished thoracic expansion with reduced breath sounds in both lung duncan. No pain elicited on palpation of her anterior chest wall. Heart: Tachycardic and irregularly irregular. Abdomen: Non-distended, soft and non-tender to palpation. Extremities: Right lower leg with surgical incision scar from vessel harvest. 1-2+ pedal edema in both legs. Neurological: Awake, alert and oriented to person, place and time. No focal deficits. Psych: Anxious. Internal Med - H&P Results - Labs CBC & Chem 7: 11/22/18 16:11 11/22/18 16:11 Labs: Short CBC 11/22/18 Range/Units 16:11 WBC 12.9 H (4.3-11.1) K/mcL Hgb 12.3 (11.5-15.4) g/dL Hct 39.6 (35.3-44.9) % Plt Count 305 (140-400) K/mcL Neutrophils # 11.0 H (1.6-8.9) K/mcL BMP 11/22/18 16:11 Sodium 136 Potassium 3.7 Chloride 104 Carbon Dioxide 17 L BUN 6 L Creatinine 0.30 L Glucose 140 H Calcium 8.6 Cardiac Enzymes 11/22/18 Range/Units 16:11 Troponin I < 0.03 (< 0.04) ng/mL - Impressions ITS Impressions Chest X-Ray 11/22/18 16:10 IMPRESSION: 1. Interval worsening of diffuse airspace opacities, more confluent in the bilateral bases, and moderate bilateral effusions. Differential considerations include edema and infection. 2. Cardiomegaly. D/ / 11/22/2018 16:40:03 Brenda Velasquez MD / cristian Interpreting Provider: Brenda Velasquez MD - Assessment and plan (1) Acute respiratory distress Current Visit: Yes Status: Acute Assessment and plan: Secondary to pulmonary edema in the setting of Afib with RVR. Will give IV diuretics tonight and continue with oral regimen tomorrow. Continuous oximetry and close observation. May need Bipap if worsens. Nitroglycerin gtt for symptomatic relief. (2) Atrial fibrillation with RVR Current Visit: Yes Status: Acute Assessment and plan: Will continue diltiazem drip until goal HR <90 and resume home oral rate control agents in the morning. Resume anticoagulation with apixaban. Check TTE in the morning to assess EF given the increasing edema. (3) Chest pain Current Visit: Yes Status: Acute Assessment and plan: Does not seem to be cardiac in origin given the longstanding history and association with trauma. If there were to be a cardiac component it would be associated with the current myocardial demand from the tachyarrythmia. Will continue to monitor for progression. Troponin negative. Monitor on telemetry. Pain control as needed. Qualifiers: Chest pain type: unspecified Qualified Code(s): R07.9 - Chest pain, unspec ified (4) Hyperthyroidism Current Visit: Yes Status: Chronic Assessment and plan: Poorly biochemically controlled with last TSH <0.01 and possibly associated with triggering her atrial fibrillation RVR state. She needs to follow with endocrinology to handle this issue otherwise the clinical manifestations will continue to be a problem. (5) CAD (coronary artery disease) Current Visit: Yes Status: Chronic Assessment and plan: Continue antiplatelet therapy and beta blockade. Qualifiers: Coronary Disease-Associated Artery/Lesion type: bypass graft [place] vs. transplanted heart: [place] heart Associated angina: with unspecified angina Qualified Code(s): I25.709 - Atherosclerosis of coronary artery bypass graft(s), unspecified, with unspecified angina pectoris (6) Frailty Current Visit: Yes Status: Acute Assessment and plan: The patient will benefit from social worker school assistance to evaluate her home care needs. - Time Spent With Patient Total time spent is greater than 50% in coordination of care (as documented) at patient's floor/unit and/or counseling patient: Greater than 35 minutes
[2018-11-22 21:06] LABS: Digoxin < 0.3 ng/mL (0.8-2.0)
[2018-11-22] MEDS: Apixaban 5 MG TABLET PO SCH (21:16)
[2018-11-22] MEDS: *HR* OxyCODONE Immed Rel 5 MG TABLET PO SCH (21:16)
[2018-11-22] MEDS: ALPRAZolam 0.5 MG TABLET PO SCH (21:16)
[2018-11-22] MEDS ORDERED: Furosemide 20 MG/2 ML VIAL IVP ONE (22:00)
[2018-11-22] MEDS: Pregabalin 25 MG CAPSULE PO SCH (22:00)
[2018-11-23] MEDS ORDERED: Diltiazem CD (24hr) 120 MG CAPSULE PO SCH (09:00)
[2018-11-23] MEDS ORDERED: amLODIPine 5 MG TABLET PO SCH (09:00)
[2018-11-23] MEDS ORDERED: Lisinopril 20 MG TABLET PO SCH (09:00)
[2018-11-23] MEDS ORDERED: Aspirin 325 MG TABLET PO SCH (09:00)
[2018-11-23] MEDS: Pregabalin 25 MG CAPSULE PO SCH (09:07)
[2018-11-23] MEDS: methIMAzole 5 MG TABLET PO SCH (09:07)
[2018-11-23] MEDS: *HR* Digoxin 0.125 MG TABLET PO SCH (09:08)
[2018-11-23] MEDS: Apixaban 5 MG TABLET PO SCH ×2 (09:08→20:02)
[2018-11-23] MEDS: ALPRAZolam 0.5 MG TABLET PO SCH ×3 (09:08→20:03)
[2018-11-23] MEDS: *HR* OxyCODONE Immed Rel 5 MG TABLET PO SCH ×2 (09:08→20:03)
[2018-11-23] MEDS: Isosorbide MONOnitrate (24 HR) 30 MG TAB.ER.24H PO SCH (09:08)
[2018-11-23] MEDS ORDERED: Furosemide 20 MG/2 ML VIAL IVP ONE (10:22)
[2018-11-23] MEDS: Venlafaxine XR (24 HR) 75 MG CAP.ER.24H PO SCH (10:24)
[2018-11-23] MEDS: Bumetanide 1 MG TABLET PO SCH (10:24)
--- NOTE | 2018-11-23 10:24 | Cardiology Consult Note ---
Date of Encounter: 11/23/18 Time of Encounter: 10:17 Assessment and Plan (1) Atrial fibrillation with RVR Current Visit: Yes Status: Acute Ventricular response rate controlled on IV diltiazem, dc IV, begin diltiazem CD 120 mg q d, continue systemic anticoagulation with Eliquis for primary stroke risk reduction. (2) CAD (coronary artery disease) Current Visit: No Status: Chronic stable class 1 angina, with severe three vessel CAD post CABG, no reoccurrence of previous anginal equilavent symptoms, chest pain at presentation is musculosketal etiology, has ruled out for acute myocardial necrosis by EKG and enzematic criteria. Qualifiers: Coronary Disease-Associated Artery/Lesion type: [place] artery [place] vs. transplanted heart: [place] heart Associated angina: with stable angina Qualified Code(s): I25.118 - Atherosclerotic heart disease of [place] coronary artery with other forms of angina pectoris (3) Chest pain Current Visit: Yes Status: Acute Chest pain most consistent with musculoskeletal etiology following mechanical fall. Does not appear cardiac etiology, continue pain management. Qualifiers: Chest pain type: intercostal pain Qualified Code(s): R07.82 - Intercostal pain (4) COPD (chronic obstructive pulmonary disease) Current Visit: Yes Status: Chronic chronically O2 depentent, although pt is not certain why she is on continuous O2, will obtain old records for review indications for chonic O2 tx Qualifiers: COPD type: unspecified COPD Qualified Code(s): J44.9 - Chronic obstructive pulmonary disease, unspecified Discussion w patient/family: The assessment and plan as outlined above was discussed with the patient and/or family members who expressed understanding and agreement. All questions were answered. Thank you for involving us in the care of your patient. Please call with any questions. History of Present Illness Consult date: 11/23/18 Requesting physician: Marquise May Consult reason: chest pain Chief complaint: Chest Pain, shortness of breath History of present illness: Ms. Mcdaniels is a 63 year old female who presents to the ER with complaints of two day history of shortness of breath, heart racing and skipping and lower extremity edema. Pt reports chest pain is left sided, started with mechanical fall approximately one month ago, sharp stabbing sensation, worse with deep inspiration and with cough, has come and gone over last several weeks, is both worsened and improved with changes in position. Chest pain is severe, 7/10, lasts seconds to minutes when severe, reduced to dull ache with changes in position. Pt reports pain is much different than chest pain provoked by exercise prior to CABG x 3. She also complains of heart racing, occurs and resolves spontaneously, is worsened by chest pain, but also occurs independent of chest pain, pt recogonizes palpitations as her known A fib with occasional RVR. She notes has resolved on IV diltiazem. She reports was placed on continuous O2 approximately one year ago, for unclear indications. Past Med Surg Social Fam HX - Past Medical History Medical history: atrial fibrillation, CHF, COPD, coronary artery disease, hyperlipidemia, hypertension, osteoporosis, thyroid disease, other Additional medical history: PITTING EDEMA Psychiatric history: depression, other - Past Surgical History Surgical History: cholecystectomy, coronary bypass (CABG), hysterectomy, other Additional surgical history: 3 vessel Bypass. 9 Coronary stents. GASTRIC BYPASS. b/l hip surgeries - Social History Smoking Status: Never smoker Smokeless Tobacco Status: No Alcohol use: none Drug use: none - Family History Father Family Member Ethnicity: Non- Living Status: Hx Family Cardiac Disorders: Yes ([place]) Brother Family Member Ethnicity: Non- Living Status: Sister Family Member Ethnicity: Non- Twin of Family Member: Yes, Identical Living Status: Hx Family Cardiac Disorders: Yes (afib) Hx Family Cancer: Yes (Colon) Mother Adopted: No Family Member Ethnicity: Non- Living Status: Hx Family Cardiac Disorders: Yes (SC) Hx Family Respiratory Disorders: No Hx Family Cancer: Yes (Colon ) Hx Family GI Disorders: Yes (Bowel Cancer) Hx Family Endocrine Disorder: Yes (DM) Hx Family Neuromuscular Disorders: No Hx Family Neurologic Disorders: No Hx Family HEENT Disorders: No Hx Family Autoimmune Disorders: No Medications and Allergies ALPRAZolam [Xanax 0.5 MG Tablet] 0.5 mg PO TID 04/11/18 [History] Aspirin 325 mg PO DAILY 04/11/18 [History] Bumetanide [Bumex] 1 mg PO DAILY 04/11/18 [History] Digoxin [Lanoxin] 0.125 mg PO DAILY 04/11/18 [History] Ferrous Sulfate [Iron] 325 mg PO Q48H 04/11/18 [History] Furosemide [Lasix] 20 mg PO BID 04/11/18 [History] Isosorbide MONOnitrate (24 HR) [Imdur] 30 mg PO DAILY 04/11/18 [History] Lisinopril [Zestril] 40 mg PO DAILY 04/11/18 [History] Nitroglycerin [Nitrostat] 0.4 mg SL Q5M PRN 04/11/18 [History] Pregabalin [Lyrica] 75 mg PO BID 04/11/18 [History] Simvastatin [Zocor] 20 mg PO HS 04/11/18 [History] methIMAzole [Methimazole] 40 mg PO DAILY 04/11/18 [History] Apixaban [Eliquis] 5 mg PO BID #60 tablet 04/13/18 [Rx] Diltiazem CD (24hr) [Cardizem CD] 120 mg PO DAILY #30 cap.er.24h 04/13/18 [Rx] Amitriptyline [Elavil] 25 mg PO HS 05/07/18 [History] Amlodipine Besylate 2.5 mg PO DAILY 05/07/18 [History] Venlafaxine HCl [Venlafaxine HCl ER] 75 mg PO DAILY 05/07/18 [History] Lactobacillus [Culturelle] 1 each PO DAILY #90 cap.sprink 07/24/18 [Rx] Alendronate Sodium [Fosamax] 70 mg PO DAVIS 11/22/18 [History] Oxycodone HCl [Roxybond] 5 mg PO BID 11/22/18 [History] Allergy/AdvReac Type Severity Reaction Status Date / Time hydrocodone [From Vicodin] Allergy Swelling Verified 09/20/17 15:38 of Lip/Tongue/Throat morphine AdvReac Rash Verified 11/20/17 16:57 All Systems Review: The remainder of the systems were reviewed and are negative - Constitutional Constitutional: fatigue - Cardiovascular Cardiovascular: palpitations, rapid heart rate - Respiratory Respiratory: cough, dyspnea - Gastrointestinal Gastrointestinal: nausea - Genitourinary Genitourinary: nocturia - Psychiatric Psychiatric: anxiety Physical Examination Vital Signs, Last 4 Hours Temp Pulse Resp BP Pulse Ox 11/23/18 10:14 80 18 103/51 98 11/23/18 09:29 98.1 F 79 19 124/61 98 11/23/18 08:35 96 11/23/18 08:03 98.0 F 70 18 116/64 96 General: Conversant, No Apparent Distress HEENT: Atraumatic, Normocephaly, Mucus Membranes Moist Neck: No JVD, Normal carotid pulses Cardiac: Reg Rate and Rhythm, Normal S1 and S2 Lungs: No Wheeze, Rales, Rhonchi, Other (decreased breath sounds bilat) Neuro: Alert and responsive, No focal deficits noted Abdomen: Soft, Non-Tender, Other (mildly obese) Skin: No rashes noted on visualized skin Musculoskeletal: No Chest Wall Tenderness Extremities: No Clubbing, No Cyanosis, No Edema, Normal Pulses Results 11/22/18 16:11 11/22/18 16:11 Lab Results 11/22/18 11/22/18 11/22/18 16:11 16:11 16:11 WBC 12.9 H Hgb 12.3 Hct 39.6 Plt Count 305 INR 1.4 APTT 28.9 Sodium 136 Potassium 3.7 Chloride 104 Carbon Dioxide 17 L BUN 6 L Creatinine 0.30 L Glucose 140 H Calcium 8.6 Troponin I < 0.03 - EKG Interpretation EKG results cardiology: personally reviewed Consult Discharge Plan - Plan Referrals: NONE,PCP [Primary Care Provider] -
[2018-11-23] MEDS: cefTRIAXone 2,000 MG in Water for inj. (sterile) 20 ML 20 ML IVP SCH (11:45)
[2018-11-23] MEDS: Azithromycin 500 MG in D5% in Water 250 ML IVPB SCH (11:46)
--- NOTE | 2018-11-23 12:19 | Internal Med Progress Note ---
Hospitalist Progress Note - Encounter Date of Encounter: 11/23/18 Time of Encounter: 12:16 - Subjective Interval History: Patient seen and examined in the room, she reported chest pain has improved, heart racing has resolved, her breathing is less harder. - Exam Vitals: Temp Pulse Resp BP Pulse Ox 98.6 F 73 18 100/52 97 11/23/18 11:20 11/23/18 11:56 11/23/18 11:56 11/23/18 11:56 11/23/18 11:20 Exam: Vitals: Reviewed General: Cachectic woman who appears older than her stated age lying in bed in no acute distress. Skin: Decreased turgor, thin, warm HEENT: Moist mucous membranes. No conjunctivae pallor. Neck: No lymphadenopathy. No JVD. No carotid bruits. No palpable thyroid. Chest: Diminished thoracic expansion with reduced breath sounds in both lung [place]. No pain elicited on palpation of her anterior chest wall. Heart: Tachycardic and irregularly irregular. Abdomen: Non-distended, soft and non-tender to palpation. Extremities: Right lower leg with surgical incision scar from vessel harvest. 1-2+ pedal edema in both legs. Neurological: Awake, alert and oriented to person, place and time. No focal deficits. Psych: Anxious. - Assessment and Plan (1) Chest pain Current Visit: Yes Status: Acute Assessment and Plan: 63 year old female with past medical history of CAD, atrial fibrillation, hypothyroidism, and recent chest trauma presented with worsening left-sided chest pain. She also has associated shortness of breath and leg edema. She was found having atrial fibrillation with RVR upon arrival, chest x-ray showed pulmonary edema and a pleural effusion. Patient was treated with IV Lasix, Cardizem drip, and nitroglycerin drip. Her heart rate was controlled, recently improved, chest pain subsided down. - Etiology of the chest pain is complicated, it could related to recent trauma, possible pulmonary infection such as pneumonia, tachycardia induced demand ischemia, or coronary artery disease. - Repeat chest x-ray this morning, repeated TSH and free T4. - Chest x-ray reviewed, right-sided consolidation could represent PNA, IV abx started. - Stress test today. appreciate cardiology help. (2) Acute respiratory distress Current Visit: Yes Status: Acute Assessment and Plan: Chest XR showed pulmonary edema and right side consolidation, One more dose of IV lasix given, IV abx started, on oral Bumex 1 mg daily (3) Atrial fibrillation with RVR Current Visit: Yes Status: Acute Assessment and Plan: Hx of afib, Had RVR last night, received cardizem gtt, rate controlled at 70-80 now, cardizem gtt dc'ed. On Eliquis at home, resumed. On Digoxin and cardizem CD at home, continued. Hyperthyroidism was uncontrolled per chart review, will repeat TSH, and free T4, may adjust Mathimazole dose, pt needs to f/u with Endocrine at [facility] for hyperthyroidism after dc. (4) CAD (coronary artery disease) Current Visit: No Status: Chronic Assessment and Plan: Continue antiplatelet therapy and beta blockade. (5) Hyperthyroidism Current Visit: No Status: Chronic Assessment and Plan: Patient reported recent weight loss, heart racing, chest pain, and shortness of breath. Per chart review, TSH in June was less than 0.01 with elevated T4. Currently taking methimazole 50 mg twice a day. We will repeat TSH and free T4 today. We will adjust the medication dose based on the lab results. Patient needs to follow up with endocrine after discharge. (6) Frailty Current Visit: Yes Status: Acute Assessment and Plan: The patient will benefit from social worker assistant assistance to evaluate her home care needs. - Time Spent with Patient Total time spent is greater than 50% in coordination of care (as documented) at patient's floor/unit and/or counseling patient: Greater than 35 minutes Plan of Care Discussed with: patient Internal Medicine: Result - Labs CBC & Chem 7: 11/22/18 16:11 11/22/18 16:11 Labs: Short CBC 11/22/18 Range/Units 16:11 WBC 12.9 H (4.3-11.1) K/mcL Hgb 12.3 (11.5-15.4) g/dL Hct 39.6 (35.3-44.9) % Plt Count 305 (140-400) K/mcL Neutrophils # 11.0 H (1.6-8.9) K/mcL BMP 11/22/18 16:11 Sodium 136 Potassium 3.7 Chloride 104 Carbon Dioxide 17 L BUN 6 L Creatinine 0.30 L Glucose 140 H Calcium 8.6 Cardiac Enzymes 11/22/18 Range/Units 16:11 Troponin I < 0.03 (< 0.04) ng/mL - ABG Interpretation ABG results: PT/INR, D-dimer PT 16.0 Seconds (9.4-12.1) H 11/22/18 16:11 - Impressions Impressions Chest X-Ray 11/22/18 16:10 IMPRESSION: 1. Interval worsening of diffuse airspace opacities, more confluent in the bilateral bases, and moderate bilateral effusions. Differential considerations include edema and infection. 2. Cardiomegaly. D/ / 11/22/2018 16:40:03 Brenda Velasquez MD / cristian Interpreting Provider: Brenda Velasquez MD Consult Discharge Plan - Plan Referrals: NONE,PCP [Primary Care Provider] - (1) Chest pain Qualifiers: Chest pain type: unspecified Qualified Code(s): R07.9 - Chest pain, unspecified (4) CAD (coronary artery disease) Qualifiers: Coronary Disease-Associated Artery/Lesion type: bypass graft [place] vs. transplanted heart: [place] heart Associated angina: with unspecified angina Qualified Code(s): I25.709 - Atherosclerosis of coronary artery bypass graft(s), unspecified, with unspecified angina pectoris
[2018-11-23] MEDS: Pregabalin 75 MG CAPSULE PO SCH (20:02)
--- NOTE | 2018-11-24 08:25 | Cardiology Progress Note ---
Date of Encounter: 11/24/18 Time of Encounter: 08:20 Assessment and Plan (1) Atrial fibrillation with RVR Current Visit: Yes Status: Acute Per Cardiology: Average heart rate the past 12 hours on telemetry 98, currently A. fib in the 90s to 100s. Systolic blood pressure 100s to 120s. We will discontinue Norvasc and decrease lisinopril dosage. Increase Cardizem CD to 180 mg by mouth daily. On digoxin. Regarding long-term anticoagulation, on Eliquis. (2) CAD (coronary artery disease) Current Visit: No Status: Chronic Per Cardiology: Hx of severe three vessel CAD post CABG. troponin negative. Echo: Impressions: LVEF 50%. Indeterminate diastolic function. RV is mildly dilated. Function appears normal. Severe bi-atrial enlargement. Mild mitral regurgitation. Mild-moderate aortic regurgitation. Mild-moderate tricuspid regurgitation. Mild pulmonary hypertension. Pleural effusion is present. Left Ventricular Wall Motion: Rest Echo Findings All wall segments showed normal motion. On aspirin-- will decrease to baby aspirin, statin, long-acting nitrate, JOSE A inhibitor. We will consider addition of beta delfino. Qualifiers: Coronary Disease-Associated Artery/Lesion type: [place] artery [place] vs. transplanted heart: [place] heart Associated angina: with stable angina Qualified Code(s): I25.118 - Atherosclerotic heart disease of [place] coronary artery with other forms of angina pectoris Discussion w patient/family: The assessment and plan as outlined above was discussed with the patient and/or family members who expressed understanding and agreement. All questions were answered. Thank you for involving us in the care of your patient. Please call with any questions. Subjective Principal diagnosis: Afib RVR Interval history: Patient reports some mild palpitations this morning. She denies any current chest pain. Reports shortness of breath has improved. Objective Vital Signs, Last 4 Hours Temp Pulse Resp BP Pulse Ox 11/24/18 06:52 97.9 F 78 16 106/61 98 General: Conversant, No Apparent Distress HEENT: Atraumatic, Normocephaly, Mucus Membranes Moist Neck: No JVD, Normal carotid pulses Cardiac: No Murmur, Other (Irregularly irregular) Lungs: Normal Breath Sounds, No Wheeze, Rales, Rhonchi Neuro: Alert and responsive, No focal deficits noted Abdomen: Soft, Non-Tender Skin: No rashes noted on visualized skin Musculoskeletal: No Chest Wall Tenderness Extremities: No Clubbing, No Cyanosis, No Edema, Normal Pulses Results 11/24/18 07:47 11/24/18 07:47 Lab Results Selected Entries 11/24/18 06:52 Pulse Rate 78 Blood Pressure 106/61 Laboratory Tests 11/22/18 11/22/18 11/22/18 16:11 16:11 16:11 Hgb 12.3 Hct 39.6 INR 1.4 Creatinine 0.30 L Est GFR (Non-Af Amer) > 60 Troponin I < 0.03 TSH Digoxin < 0.3 L 11/23/18 12:08 Hgb Hct INR Creatinine Est GFR (Non-Af Amer) Troponin I TSH < 0.010 L Digoxin ITS Impressions Chest X-Ray 11/22/18 16:10 IMPRESSION: 1. Interval worsening of diffuse airspace opacities, more confluent in the bilateral bases, and moderate bilateral effusions. Differential considerations include edema and infection. 2. Cardiomegaly. D/ / 11/22/2018 16:40:03 Brenda Velasquez MD / cristian Interpreting Provider: Brenda Velasquez MD Echocardiogram 11/22/18 20:38 Impressions: LVEF 50%. Indeterminate diastolic function. RV is mildly dilated. Function appears normal. Severe bi-atrial enlargement. Mild mitral regurgitation. Mild-moderate aortic regurgitation. Mild-moderate tricuspid regurgitation. Mild pulmonary hypertension. Pleural effusion is present. Left Ventricular Wall Motion: Rest Echo Findings All wall segments showed normal motion. Findings: Study Quality * Technically adequate exam. ECG Findings * Normal sinus rhythm. Left Ventricle * Normal LV chamber size and wall thickness. * LVEF 50%. * Indeterminate diastolic function. Right Ventricle * RV is mildly dilated. Function appears normal. Left Atrium * Severely dilated left atrium. Right Atrium * Severely dilated right atrium. Mitral Valve * No mitral stenosis. * Mildly thickened mitral valve leaflets. * Mild mitral regurgitation. Aortic Valve * Aortic valve not well visualized. * Mild-moderate aortic regurgitation. * No aortic stenosis. Tricuspid Valve * Normal tricuspid valve structure. * Mild-moderate tricuspid regurgitation. * Estimated RA pressure is 3 mmHg. * Estimated RVSP is 46 mmHg. * Mild pulmonary hypertension. Pulmonic Valve * Pulmonic valve is not well visualized. * No pulmonic stenosis. * No pulmonic regurgitation. Pulmonary Artery * Pulmonary artery not well visualized. Aorta * Normally sized aortic root. Pericardium * There is no pericardial effusion present. Pleural Effusion * Pleural effusion is present. Interatrial Septum * No evidence of PFO by color Doppler. IVC * Normal IVC dimensions and inspiratory collapse. Chest X-Ray 11/23/18 10:22 IMPRESSION: 1. Persistent bilateral effusions and bilateral airspace opacities with mild improvement of the bilateral airspace opacities when compared with previous exam. D/ / Augustine Hazel MD / Augustine Haezl MD Interpreting Provider: Augustine Hazel MD Chest X-Ray 11/24/18 07:00 IMPRESSION: No acute interval change. Stable layering effusions and basilar opacities. D/ / Gage Vick / Gage Vick Interpreting Provider: Gage Vick Active Medications Acetaminophen (Tylenol) 500 mg PO Q6HR PRN PRN Reason: Mild Pain Stop: 05/25/19 15:10 Last Admin: 11/24/18 04:00 Dose: 500 mg Alprazolam (Xanax) 0.5 mg PO TID [facility]; Protocol Stop: 05/24/19 21:01 Last Admin: 11/23/18 20:03 Dose: 0.5 mg Amitriptyline HCl (Elavil) 25 mg PO HS [facility] Stop: 05/24/19 21:01 Last Admin: 11/23/18 20:03 Dose: 25 mg Apixaban (Eliquis) 5 mg PO BID [facility] Stop: 05/24/19 21:01 Last Admin: 11/23/18 20:02 Dose: 5 mg Aspirin (Aspirin) 325 mg PO DAILY [facility] Stop: 05/25/19 09:01 Last Admin: 11/23/18 10:23 Dose: 325 mg Bumetanide (Bumex) 1 mg PO DAILY [facility] Stop: 05/25/19 09:01 Last Admin: 11/23/18 10:24 Dose: 1 mg Digoxin (Lanoxin) 0.125 mg PO DAILY [facility] Stop: 05/25/19 09:01 Last Admin: 11/23/18 09:08 Dose: 0.125 mg Diltiazem HCl (Cardizem Cd) 180 mg PO DAILY [facility] Stop: 05/26/19 08:31 Ferrous Sulfate (Ferrous Sulfate) 325 mg PO DAILY@0800 [facility] Stop: 05/25/19 08:01 Last Admin: 11/23/18 10:24 Dose: 325 mg Azithromycin 500 mg/ Dextrose 250 mls @ 252 mls/hr IVPB Q24H [facility] Stop: 05/25/19 11:01 Last Infusion: 11/23/18 13:52 Dose: Infused Ceftriaxone Sodium 2,000 mg/ (Sterile Water) 20 mls @ 600 mls/hr IVP DAILY [facility] Stop: 05/25/19 11:01 Last Infusion: 11/23/18 11:55 Dose: Infused Isosorbide Mononitrate (Imdur) 30 mg PO DAILY [facility] Stop: 05/25/19 09:01 Last Admin: 11/23/18 09:08 Dose: 30 mg Lisinopril (Zestril) 20 mg PO DAILY [facility] Stop: 05/26/19 09:01 Methimazole (Tapazole) 40 mg PO DAILY [facility] Stop: 05/25/19 09:01 Last Admin: 11/23/18 09:07 Dose: 40 mg Nitroglycerin (Nitroglycerin) 0.4 mg SL Q5M PRN PRN Reason: Chest Pain Stop: 05/24/19 20:28 Oxycodone HCl (Roxicodone) 5 mg PO BID [facility] Stop: 05/24/19 21:01 Last Admin: 11/23/18 20:03 Dose: 5 mg Pregabalin (Lyrica) 75 mg PO BID [facility] Stop: 05/24/19 21:01 Last Admin: 11/23/18 20:02 Dose: 75 mg Simvastatin (Zocor) 20 mg PO HS [facility]; Protocol Stop: 05/24/19 21:01 Last Admin: 11/23/18 20:03 Dose: 20 mg Venlafaxine HCl (Effexor Xr) 75 mg PO DAILY [facility] Stop: 05/25/19 09:01 Last Admin: 11/23/18 10:24 Dose: 75 mg - Imaging and Cardiology Echo: report reviewed - EKG Interpretation EKG results cardiology: other (A. fib in the 90s) Consult Discharge Plan - Plan Referrals: NONE,PCP [Primary Care Provider] -
[2018-11-24 08:34] LABS: Basophils % 0.4 %; Eosinophils # 0.2 K/mcL (0.0-0.6); Eosinophils % 3.8 %; Hematocrit 30.7 % (35.3-44.9); Immature Granulocytes % 0.2 % (0-4); Lymphocytes # 0.8 K/mcL (0.6-4.6); Lymphocytes % 14.3 %; Mean Corpuscular HGB Conc 31.3 g/dL (31.6-35.5); Mean Corpuscular Hemoglobin 27.7 pg (28.0-33.3); Mean Corpuscular Volume 88.7 fL (83.0-100.0); Mean Platelet Volume 11.2 fL (9.4-12.4); Monocytes # 0.5 K/mcL (0.0-1.3); Monocytes % 9.1 %; Platelet Count 191 K/mcL (140-400); Red Blood Count 3.46 M/mcL (3.82-4.97); Red Cell Distribution Width 18.9 % (11.5-14.5); Segmented Neutrophils % 72.2 %
[2018-11-24 08:40] LABS: Hemoglobin 9.6 g/dL (11.5-15.4)
[2018-11-24 08:56] LABS: BUN/Creatinine Ratio 56 (6-26); Blood Urea Nitrogen 15 mg/dL (8-23); Calcium 8.1 mg/dL (8.6-10.3); Carbon Dioxide 26 mEq/L (23-29); Chloride 107 mEq/L (98-107); Glucose 91 mg/dL (70-105); Osmolality,Calculated 288 (280-300); Potassium 3.5 mEq/L (3.5-5.1); Sodium 139 mEq/L (136-145); eGFR For Non-African Americans > 60 (> 60)
[2018-11-24] MEDS: Diltiazem CD (24hr) 180 MG CAPSULE PO SCH ×2 (10:51→10:52)
[2018-11-24] MEDS: Venlafaxine XR (24 HR) 75 MG CAP.ER.24H PO SCH (10:51)
[2018-11-24] MEDS: ALPRAZolam 0.5 MG TABLET PO SCH ×3 (10:52→20:50)
[2018-11-24] MEDS: Bumetanide 1 MG TABLET PO SCH (10:52)
[2018-11-24] MEDS: Pregabalin 75 MG CAPSULE PO SCH ×2 (10:52→20:50)
[2018-11-24] MEDS: Aspirin 81 MG TAB.CHEW PO SCH (10:52)
[2018-11-24] MEDS: Isosorbide MONOnitrate (24 HR) 30 MG TAB.ER.24H PO SCH (10:52)
[2018-11-24] MEDS: *HR* Digoxin 0.125 MG TABLET PO SCH (10:52)
[2018-11-24] MEDS: Apixaban 5 MG TABLET PO SCH ×2 (10:53→20:50)
[2018-11-24] MEDS: *HR* OxyCODONE Immed Rel 5 MG TABLET PO SCH ×2 (10:53→20:50)
[2018-11-24] MEDS: Lisinopril 20 MG TABLET PO SCH (10:53)
[2018-11-24] MEDS: methIMAzole 5 MG TABLET PO SCH (10:54)
[2018-11-24] MEDS: cefTRIAXone 2,000 MG in Water for inj. (sterile) 20 ML 20 ML IVP SCH (10:55)
[2018-11-24] MEDS: Azithromycin 500 MG in D5% in Water 250 ML IVPB SCH (10:56)
--- NOTE | 2018-11-24 15:06 | Internal Med Progress Note ---
Hospitalist Progress Note - Encounter Date of Encounter: 11/24/18 Time of Encounter: 15:04 - Subjective Interval History: Patient seen and examined at bedside. Overall patient states that she feels better. She does report some mild chest pain that she noticed when she takes a deep breath but otherwise feels like she her breathing is better. Denies fever, chills, cough - Exam Vitals: Temp Pulse Resp BP Pulse Ox 98.1 F 94 16 114/66 97 11/24/18 10:58 11/24/18 10:58 11/24/18 10:58 11/24/18 10:58 11/24/18 10:58 Exam: Vital signs stable General: An 3, no acute distress HEENT: Moist mucous membranes. Heart: Irregularly irregular, no tachycardia noted. Lungs: Diminished breath sounds bibasilar, no rales, rhonchi, wheezes noted Abdomen: Non-distended, soft and non-tender to palpation. Normoactive bowel sounds Extremities: Trace lower extremity bilaterally Neurological: Awake, alert and oriented to person, place and time. No focal deficits. - Assessment and Plan (1) Atrial fibrillation with RVR Current Visit: Yes Status: Acute Assessment and Plan: Heart rate improved. Asymptomatic. Likely due to underlying hyperthyroidism. Patient reports that they have talked about removing her thyroid is of these symptoms however this is not scheduled yet. Follows with endocrinology at [facility]. Continue rate controlling medications and Eliquis for anticoagulation. (2) Acute respiratory distress Current Visit: Yes Status: Resolved Assessment and Plan: Resolved. No longer requiring supplemental oxygen. (3) Pneumonia Current Visit: Yes Status: Acute Assessment and Plan: Patient has evidence of pneumonia on chest x-ray with shortness of breath, pleuritic chest pain. Personally reviewed chest x-ray and labs. Leukocytosis on presentation which has resolved. Continue azithromycin and ceftriaxone for community-acquired coverage. (4) CAD (coronary artery disease) Current Visit: No Status: Chronic Assessment and Plan: Stable. Continue aspirin, per cardiology notes considered adding beta delfino given her stable vital signs we will hold off on this time. (5) Hyperthyroidism Current Visit: No Status: Chronic Assessment and Plan: TSH less than 0.010, free T4 3.38. Likely driving patient's elevated heart rate. Patient reports that she follows with endocrinology at [facility] and they have considered thyroidectomy to treat her symptoms. She would like to continue following [facility] for her endocrinology care. (6) Frailty Current Visit: Yes Status: Acute Assessment and Plan: Patient reports continued weakness and feeling unsteady on her feet. PT/OT consult pending. (7) Chest pain Current Visit: Yes Status: Acute Assessment and Plan: Pleuritic in nature. Cardiology evaluated the patient feels like this is noncardiac chest pain. Likely due to underlying pneumonia. Continue to treat as above. DVT Prophylaxis: Currently anticoagulated with Eliquis so no further DVT prophylaxis indicated. - Time Spent with Patient Total time spent is greater than 50% in coordination of care (as documented) at patient's floor/unit and/or counseling patient: Internal Medicine: Result - Labs CBC & Chem 7: 11/24/18 07:47 11/24/18 07:47 Labs: Short CBC 11/24/18 Range/Units 07:47 WBC 5.5 D (4.3-11.1) K/mcL Hgb 9.6 L D (11.5-15.4) g/dL Hct 30.7 L (35.3-44.9) % Plt Count 191 (140-400) K/mcL Neutrophils # 4.0 (1.6-8.9) K/mcL BMP 11/24/18 07:47 Sodium 139 Potassium 3.5 Chloride 107 Carbon Dioxide 26 BUN 15 Creatinine 0.27 L Glucose 91 Calcium 8.1 L - ABG Interpretation ABG results: PT/INR, D-dimer PT 16.0 Seconds (9.4-12.1) H 11/22/18 16:11 - Impressions Impressions Chest X-Ray 11/22/18 16:10 IMPRESSION: 1. Interval worsening of diffuse airspace opacities, more confluent in the bilateral bases, and moderate bilateral effusions. Differential considerations include edema and infection. 2. Cardiomegaly. D/ / 11/22/2018 16:40:03 Brenda Velasquez MD / cristian Interpreting Provider: Brenda Velasquez MD Chest X-Ray 11/23/18 10:22 IMPRESSION: 1. Persistent bilateral effusions and bilateral airspace opacities with mild improvement of the bilateral airspace opacities when compared with previous exam. D/ / Augustine Hazel MD / Augustine Hazel MD Interpreting Provider: Augustine Hazel MD Chest X-Ray 11/24/18 07:00 IMPRESSION: No acute interval change. Stable layering effusions and basilar opacities. D/ / Gage Vick / Gage Vick Interpreting Provider: Gage Vick Consult Discharge Plan - Plan Referrals: NONE,PCP [Primary Care Provider] - (3) Pneumonia Qualifiers: Pneumonia type: due to unspecified organism Laterality: unspecified lateral ity Lung location: unspecified part of lung Qualified Code(s): J18.9 - Pneumonia, unspecified organism (4) CAD (coronary artery disease) Qualifiers: Coronary Disease-Associated Artery/Lesion type: [place] artery [place] vs. transplanted heart: [place] heart Associated angina: with stable angina Qualified Code(s): I25.118 - Atherosclerotic heart disease of [place] coronary artery with other forms of angina pectoris (7) Chest pain Qualifiers: Chest pain type: intercostal pain Qualified Code(s): R07.82 - Intercostal pain
[2018-11-25 07:10] LABS: Basophils % 0.4 %; Eosinophils # 0.3 K/mcL (0.0-0.6); Eosinophils % 6.5 %; Hematocrit 33.6 % (35.3-44.9); Hemoglobin 10.6 g/dL (11.5-15.4); Immature Granulocytes % 0.2 % (0-4); Lymphocytes # 0.9 K/mcL (0.6-4.6); Lymphocytes % 19.4 %; Mean Corpuscular HGB Conc 31.5 g/dL (31.6-35.5); Mean Corpuscular Hemoglobin 27.9 pg (28.0-33.3); Mean Corpuscular Volume 88.4 fL (83.0-100.0); Monocytes # 0.4 K/mcL (0.0-1.3); Monocytes % 7.8 %; Platelet Count 198 K/mcL (140-400); Red Cell Distribution Width 18.6 % (11.5-14.5); Segmented Neutrophils % 65.7 %
[2018-11-25 07:31] LABS: BUN/Creatinine Ratio 50 (6-26); Blood Urea Nitrogen 12 mg/dL (8-23); Calcium 8.4 mg/dL (8.6-10.3); Carbon Dioxide 25 mEq/L (23-29); Chloride 109 mEq/L (98-107); Glucose 85 mg/dL (70-105); Osmolality,Calculated 287 (280-300); Sodium 139 mEq/L (136-145); eGFR For Non-African Americans > 60 (> 60)
[2018-11-25] MEDS: cefTRIAXone 2,000 MG in Water for inj. (sterile) 20 ML 20 ML IVP SCH (10:22)
[2018-11-25] MEDS: Apixaban 5 MG TABLET PO SCH ×2 (10:23→20:22)
[2018-11-25] MEDS: ALPRAZolam 0.5 MG TABLET PO SCH (10:23)
[2018-11-25] MEDS: Isosorbide MONOnitrate (24 HR) 30 MG TAB.ER.24H PO SCH (10:23)
[2018-11-25] MEDS: Venlafaxine XR (24 HR) 75 MG CAP.ER.24H PO SCH (10:23)
[2018-11-25] MEDS: methIMAzole 5 MG TABLET PO SCH (10:23)
[2018-11-25] MEDS: Bumetanide 1 MG TABLET PO SCH (10:23)
[2018-11-25] MEDS: Diltiazem CD (24hr) 180 MG CAPSULE PO SCH (10:24)
[2018-11-25] MEDS: *HR* OxyCODONE Immed Rel 5 MG TABLET PO SCH (10:24)
[2018-11-25] MEDS: Aspirin 81 MG TAB.CHEW PO SCH (10:24)
[2018-11-25] MEDS: Pregabalin 75 MG CAPSULE PO SCH ×2 (10:24→20:21)
[2018-11-25] MEDS: *HR* Digoxin 0.125 MG TABLET PO SCH (10:24)
[2018-11-25] MEDS: Lisinopril 20 MG TABLET PO SCH (10:24)
[2018-11-25] MEDS: Azithromycin 500 MG in D5% in Water 250 ML IVPB SCH (11:51)
--- NOTE | 2018-11-25 12:45 | Internal Med Progress Note ---
Hospitalist Progress Note - Encounter Date of Encounter: 11/25/18 Time of Encounter: 12:46 - Subjective Interval History: Patient seen and examined at bedside. Overall patient states that she feels better. She does report some mild chest pain that she noticed when she takes a deep breath but otherwise feels like she her breathing is better. Denies fever, chills, cough - Exam Vitals: Temp Pulse Resp BP Pulse Ox 98.1 F 99 16 101/63 94 11/25/18 11:02 11/25/18 11:02 11/25/18 11:02 11/25/18 11:02 11/25/18 11:02 Exam: Vital signs stable General: A&O 3, no acute distress HEENT: Moist mucous membranes. Heart: Irregularly irregular, no tachycardia noted. Lungs: Diminished breath sounds bibasilar, no rales, rhonchi, wheezes noted Abdomen: Non-distended, soft and non-tender to palpation. Normoactive bowel sounds Extremities: Trace lower extremity bilaterally Neurological: Awake, alert and oriented to person, place and time. No focal deficits. Mildly tremulous diffusely - Assessment and Plan (1) Atrial fibrillation with RVR Current Visit: Yes Status: Acute Assessment and Plan: Heart rate improved. Asymptomatic. Likely due to underlying hyperthyroidism. Patient reports that they have talked about removing her thyroid is of these symptoms however this is not scheduled yet. Follows with endocrinology at [facility]. Continue rate controlling medications and Eliquis for anticoagulation. (2) Acute respiratory distress Current Visit: Yes Status: Resolved Assessment and Plan: Resolved. No longer requiring supplemental oxygen. (3) Pneumonia Current Visit: Yes Status: Acute Assessment and Plan: Patient has evidence of pneumonia on chest x-ray with shortness of breath, pleuritic chest pain. Personally reviewed chest x-ray and labs. Leukocytosis on presentation which has resolved. Continue azithromycin and ceftriaxone for community-acquired coverage. Day 4 of 7 (4) CAD (coronary artery disease) Current Visit: No Status: Chronic Assessment and Plan: Stable. Continue aspirin, per cardiology notes considered adding beta delfino given her mildly low blood pressure we will hold off on this time. (5) Hyperthyroidism Current Visit: No Status: Chronic Assessment and Plan: TSH less than 0.010, free T4 3.38. Likely driving patient's elevated heart rate as well as her mild tremor. Patient reports that she follows with endocrinology at [facility] and they have considered thyroidectomy to treat her symptoms. She would like to continue following [facility] for her endocrinology care. (6) Frailty Current Visit: Yes Status: Acute Assessment and Plan: Patient reports continued weakness and feeling unsteady on her feet. PT/OT consult pending. Patient is extremely weak and I am concerned about her safety going home, she is refusing to consider ECF at this point however will discuss further and attempt to contact family as I feel like this is the best option for her. (7) Chest pain Current Visit: Yes Status: Acute Assessment and Plan: Pleuritic in nature. Cardiology evaluated the patient feels like this is nonc ardiac chest pain. Likely due to underlying pneumonia. Continue to treat as above. DVT Prophylaxis: Currently anticoagulated with Eliquis so no further DVT prophylaxis indicated. - Time Spent with Patient Total time spent is greater than 50% in coordination of care (as documented) at patient's floor/unit and/or counseling patient: Internal Medicine: Result - Labs CBC & Chem 7: 11/25/18 06:58 11/25/18 06:58 Labs: Short CBC 11/25/18 Range/Units 06:58 WBC 4.5 (4.3-11.1) K/mcL Hgb 10.6 L (11.5-15.4) g/dL Hct 33.6 L (35.3-44.9) % Plt Count 198 (140-400) K/mcL Neutrophils # 3.0 (1.6-8.9) K/mcL BMP 11/25/18 06:58 Sodium 139 Potassium 4.0 Chloride 109 H Carbon Dioxide 25 BUN 12 Creatinine 0.24 L Glucose 85 Calcium 8.4 L - ABG Interpretation ABG results: PT/INR, D-dimer PT 16.0 Seconds (9.4-12.1) H 11/22/18 16:11 Consult Discharge Plan - Plan Referrals: NONE,PCP [Primary Care Provider] - (3) Pneumonia Qualifiers: Pneumonia type: due to unspecified organism Laterality: unspecified laterality Lung location: unspecified part of lung Qualified Code(s): J18.9 - Pneumonia, unspecified organism (4) CAD (coronary artery disease) Qualifiers: Coronary Disease-Associated Artery/Lesion type: [place] artery [place] vs. transplanted heart: [place] heart Associated angina: with stable angina Qual ified Code(s): I25.118 - Atherosclerotic heart disease of [place] coronary artery with other forms of angina pectoris (7) Chest pain Qualifiers: Chest pain type: intercostal pain Qualified Code(s): R07.82 - Intercostal pain
[2018-11-25] MEDS ORDERED: ALPRAZolam 0.5 MG TABLET PO PRN (13:07)
--- NOTE | 2018-11-25 13:55 | Electrocardiograph Report ---
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
[2018-11-25] MEDS: *HR* OxyCODONE Immed Rel 5 MG TABLET PO PRN (15:08)
[2018-11-26] MEDS: *HR* OxyCODONE Immed Rel 5 MG TABLET PO PRN ×2 (00:20→08:34)
[2018-11-26 06:49] LABS: Basophils % 0.6 %; Eosinophils # 0.2 K/mcL (0.0-0.6); Eosinophils % 3.8 %; Hematocrit 32.3 % (35.3-44.9); Hemoglobin 9.9 g/dL (11.5-15.4); Immature Granulocytes % 0.2 % (0-4); Lymphocytes # 0.9 K/mcL (0.6-4.6); Lymphocytes % 16.7 %; Mean Corpuscular HGB Conc 30.7 g/dL (31.6-35.5); Mean Corpuscular Hemoglobin 27.9 pg (28.0-33.3); Mean Platelet Volume 11.4 fL (9.4-12.4); Monocytes # 0.4 K/mcL (0.0-1.3); Neutrophils # 3.8 K/mcL (1.6-8.9); Platelet Count 182 K/mcL (140-400); Red Blood Count 3.55 M/mcL (3.82-4.97); Red Cell Distribution Width 18.6 % (11.5-14.5); Segmented Neutrophils % 71.7 %
[2018-11-26 07:09] LABS: BUN/Creatinine Ratio 55 (6-26); Blood Urea Nitrogen 17 mg/dL (8-23); Calcium 8.3 mg/dL (8.6-10.3); Carbon Dioxide 26 mEq/L (23-29); Chloride 108 mEq/L (98-107); Glucose 80 mg/dL (70-105); Osmolality,Calculated 287 (280-300); Potassium 4.7 mEq/L (3.5-5.1); Sodium 138 mEq/L (136-145); eGFR For Non-African Americans > 60 (> 60)
[2018-11-26] MEDS: Lisinopril 20 MG TABLET PO SCH (08:33)
[2018-11-26] MEDS: cefTRIAXone 2,000 MG in Water for inj. (sterile) 20 ML 20 ML IVP SCH (08:33)
[2018-11-26] MEDS: Diltiazem CD (24hr) 180 MG CAPSULE PO SCH (08:34)
[2018-11-26] MEDS: Apixaban 5 MG TABLET PO SCH (08:34)
[2018-11-26] MEDS: Isosorbide MONOnitrate (24 HR) 30 MG TAB.ER.24H PO SCH (08:34)
[2018-11-26] MEDS: Venlafaxine XR (24 HR) 75 MG CAP.ER.24H PO SCH (08:34)
[2018-11-26] MEDS: *HR* Digoxin 0.125 MG TABLET PO SCH (08:34)
[2018-11-26] MEDS: Pregabalin 75 MG CAPSULE PO SCH (08:34)
[2018-11-26] MEDS: methIMAzole 5 MG TABLET PO SCH (08:35)
[2018-11-26] MEDS: Aspirin 81 MG TAB.CHEW PO SCH (08:35)
[2018-11-26] MEDS: Bumetanide 1 MG TABLET PO SCH (08:35)
[2018-11-26] MEDS ORDERED: Azithromycin 250 MG TABLET PO SCH (09:00)
[2018-11-26 11:33] VITALS: BP 102/56
--- NOTE | 2018-11-26 14:24 | Discharge Summary ---
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 Treated for pneumonia with ceftriaxone was an inpatient and will continue with Augmentin for a total 7 days. Orders not resulted at time of discharge: Pending orders 11/23/18 12:08 Free T4 byEquilibrium Dialysis Routine 11/27/18 04:00 Basic Metabolic Panel AM 0400 Complete Blood Count [HEME] AM 0400 Magnesium AM 0400 11/28/18 04:00 Basic Metabolic Panel AM 0400 Complete Blood Count [HEME] AM 0400 Magnesium AM 0400 11/29/18 04:00 Basic Metabolic Panel AM 0400 Complete Blood Count [HEME] AM 0400 Magnesium AM 0400 11/30/18 04:00 Basic Metabolic Panel AM 0400 Complete Blood Count [HEME] AM 0400 Magnesium AM 0400 Date of Encounter: 11/26/18 Time of Encounter: 14:22 - Discharge Diagnosis (1) Atrial fibrillation with RVR Priority: Primary Status: Resolved (2) Acute respiratory distress Priority: Secondary Status: Resolved (3) Pneumonia Priority: Primary Status: Acute Qualifiers: Pneumonia type: due to unspecified organism Laterality: unspecified laterality Lung location: unspecified part of lung Qualified Code(s): J18.9 - Pneumonia, unspecified organism (4) CAD (coronary artery disease) Priority: Primary Status: Chronic Qualifiers: Coronary Disease-Associated Artery/Lesion type: [place] artery [place] vs. transplanted heart: [place] heart Associated angina: with stable angina Qualified Code(s): I25.118 - Atherosclerotic heart disease of [place] coronary artery with other forms of angina pectoris (5) Hyperthyroidism Priority: Primary Status: Chronic (6) Frailty Priority: Primary Status: Acute (7) Chest pain Priority: Secondary Status: Resolved Qualifiers: Chest pain type: intercostal pain Qualified Code(s): R07.82 - Intercostal pain Hospital course: Ms. Mcdaniels is a 63 year old female with history of coronary disease, atrial fibrillation, hyperthyroidism who presented with chest pain and shortness of breath. She was found to be in atrial fibrillation with RVR and required Cardizem drip. She was seen by cardiology transition her back to oral Cardizem for rate control and she is currently on Eliquis for anticoagulation. Patient had shortness of breath and was noted to have pneumonia on chest x-ray therefore she was treated with antibiotics. Her respiratory symptoms improved. She was evaluated by physical therapy who felt she would benefit from rehabilitation. The patient was agreeable to go to [facility] swing bed. Patient will be discharged to swing bed in stable condition. Discharge discussed with: patient, family, social work, case management - Time Spent with Patient Total time spent providing and/or coordinating discharge services: - Discharge Medications Prescriptions: Amoxicillin/Clavulanate [Augmentin] 875 mg PO BIDWM #8 tablet Home Medications: ALPRAZolam [Xanax 0.5 MG Tablet] 0.5 mg PO TID 04/11/18 [History] Aspirin 325 mg PO DAILY 04/11/18 [History] Bumetanide [Bumex] 1 mg PO DAILY 04/11/18 [History] Digoxin [Lanoxin] 0.125 mg PO DAILY 04/11/18 [History] Ferrous Sulfate [Iron] 325 mg PO Q48H 04/11/18 [History] Furosemide [Lasix] 20 mg PO BID 04/11/18 [History] Isosorbide MONOnitrate (24 HR) [Imdur] 30 mg PO DAILY 04/11/18 [History] Lisinopril [Zestril] 40 mg PO DAILY 04/11/18 [History] Nitroglycerin [Nitrostat] 0.4 mg SL Q5M PRN 04/11/18 [History] Pregabalin [Lyrica] 75 mg PO BID 04/11/18 [History] Simvastatin [Zocor] 20 mg PO HS 04/11/18 [History] methIMAzole [Methimazole] 40 mg PO DAILY 04/11/18 [History] Apixaban [Eliquis] 5 mg PO BID #60 tablet 04/13/18 [Rx] Diltiazem CD (24hr) [Cardizem CD] 120 mg PO DAILY #30 cap.er.24h 04/13/18 [Rx] Amitriptyline [Elavil] 25 mg PO HS 05/07/18 [History] Amlodipine Besylate 2.5 mg PO DAILY 05/07/18 [History] Venlafaxine HCl [Venlafaxine HCl ER] 75 mg PO DAILY 05/07/18 [History] Lactobacillus [Culturelle] 1 each PO DAILY #90 cap.sprink 07/24/18 [Rx] Alendronate Sodium [Fosamax] 70 mg PO DAVIS 11/22/18 [History] Oxycodone HCl [Roxybond] 5 mg PO BID PRN 11/22/18 [History] Amoxicillin/Clavulanate [Augmentin] 875 mg PO BIDWM #8 tablet 11/26/18 [Rx] Allergies/Adverse Reactions: Allergy/AdvReac Type Severity Reaction Status Date / Time hydrocodone [From Vicodin] Allergy Swelling Verified 09/20/17 15:38 of Lip/Tongue/Throat morphine AdvReac Rash Verified 11/20/17 16:57 Date of admission: 11/23/18 09:30 Primary care physician: PCP NONE Consults: 11/22/18 18:05 Consult to Cardiology [CONS] Stat Comment: Consulting Provider: Cardiology Kelley Reason for Consult: afib w rvr Call Completed: Yes 11/23/18 10:19 Consult to Physical Therapy [CONS] Routine Comment: Evaluate, develop and implement POC Reason for Consult: lives at home by herself. No home health services noted. Does patient have active BEDREST order?: No Is patient medically & hemodynamically stable?: Yes Patient assessed for mobility or mobilized this visit?: No 11/23/18 10:20 Consult to Occupational Therapy [CONS] Routine Comment: Evaluate, develop and implement POC Reason for Consult: Patient lives at home by her self. No home health services noted. Does patient have active BEDREST order?: No Is patient medically & hemodynamically stable?: Yes Patient assessed for mobility or mobilized this visit?: No 11/23/18 10:21 Consult to Dermatology Nurse [CONS] Routine Reason for SW Consult: patient would like to set up home health prior to discharge. Discharging clinician: Johnson Nava Anticipated date of discharge: 11/26/18 - Constitutional Vitals: Temp Pulse Resp BP Pulse Ox 98.4 F 70 18 102/56 96 11/26/18 11:33 11/26/18 11:33 11/26/18 11:33 11/26/18 11:33 11/26/18 11:33 General appearance: Present: A&O X 3, pleasant, no acute distress Exam: . - Respiratory Respiratory exam: Present: decreased breath sounds. Absent: rales, rhonchi, wheezes - Cardiovascular Cardiovascular exam: Present: irregular rhythm. Absent: gallop, rubs, systolic murmur - GI/Abdominal GI/Abdominal exam: Present: normal bowel sounds, soft. Absent: distended, tenderness - Extremities Exam Extremities exam: Present: warm. Absent: pedal edema, tenderness - Neurological Exam Neurological exam: Present: alert, CN II-XII intact, oriented X3, no focal deficits - Patient Status Disposition: Transfer Hospital Swing Bed Condition: Critical Functional capacity at discharge: uses cane/walker (with asssist) Overall status at discharge: patient is progressing back to baseline - Discharge Instructions Follow Up With: NONE,PCP [Primary Care Provider] - (1 week) [facility] Endocrinology [Other] (2-4 weeks) Additional Instructions: Please resume your home medications. Please take antibiotics until completed. Please participate in rehabilitation. Please return for any new or worsening symptoms. - Diet and Activity Activity: as per physical therapy Diet: low salt diet
--- NOTE | 2018-11-26 14:36 | Physician Discharge Referral ---
ExtendedCare Referral Info Transfer To: [facility] bed Provider in Charge after Transfer: PCP Institutional Level of Care: Skilled - Diagnosis (1) Atrial fibrillation with RVR Priority: Primary Status: Resolved (2) Acute respiratory distress Priority: Secondary Status: Resolved (3) Pneumonia Priority: Primary Status: Acute (4) CAD (coronary artery disease) Priority: Secondary Status: Chronic (5) Hyperthyroidism Priority: Secondary Status: Chronic (6) Frailty Priority: Secondary Status: Acute (7) Chest pain Priority: Secondary Status: Resolved Prognosis: Fair Aware of Diagnosis: Patient, Family Aware of Prognosis: Patient, Family - Transfer Medications Prescriptions: Amoxicillin/Clavulanate [Augmentin] 875 mg PO BIDWM #8 tablet Home Medications: ALPRAZolam [Xanax 0.5 MG Tablet] 0.5 mg PO TID 04/11/18 [History] Aspirin 325 mg PO DAILY 04/11/18 [History] Bumetanide [Bumex] 1 mg PO DAILY 04/11/18 [History] Digoxin [Lanoxin] 0.125 mg PO DAILY 04/11/18 [History] Ferrous Sulfate [Iron] 325 mg PO Q48H 04/11/18 [History] Furosemide [Lasix] 20 mg PO BID 04/11/18 [History] Isosorbide MONOnitrate (24 HR) [Imdur] 30 mg PO DAILY 04/11/18 [History] Lisinopril [Zestril] 40 mg PO DAILY 04/11/18 [History] Nitroglycerin [Nitrostat] 0.4 mg SL Q5M PRN 04/11/18 [History] Pregabalin [Lyrica] 75 mg PO BID 04/11/18 [History] Simvastatin [Zocor] 20 mg PO HS 04/11/18 [History] methIMAzole [Methimazole] 40 mg PO DAILY 04/11/18 [History] Apixaban [Eliquis] 5 mg PO BID #60 tablet 04/13/18 [Rx] Diltiazem CD (24hr) [Cardizem CD] 120 mg PO DAILY #30 cap.er.24h 04/13/18 [Rx] Amitriptyline [Elavil] 25 mg PO HS 05/07/18 [History] Amlodipine Besylate 2.5 mg PO DAILY 06/19/18 [History] Venlafaxine HCl [Venlafaxine HCl ER] 75 mg PO DAILY 05/07/18 [History] Lactobacillus [Culturelle] 1 each PO DAILY #90 cap.sprink 07/24/18 [Rx] Alendronate Sodium [Fosamax] 70 mg PO DAVIS 11/22/18 [History] Oxycodone HCl [Roxybond] 5 mg PO BID PRN 11/22/18 [History] Amoxicillin/Clavulanate [Augmentin] 875 mg PO BIDWM #8 tablet 11/26/18 [Rx] Allergies/Adverse Reactions: Allergy/AdvReac Type Severity Reaction Status Date / Time hydrocodone [From Vicodin] Allergy Swelling Verified 09/20/17 15:38 of Lip/Tongue/Throat morphine AdvReac Rash Verified 11/20/17 16:57 - Respiratory Orders Oxygen / L per min (2) Smoking Cessation: Smoking cessation has been advised. For more information, call the [employer] Tobacco Quit Line at 0-362-ZVFB-NOW. - Ancillary Orders May use pressure relief devices daily prn, May consult with Dentist, X Ray Service Technician, Certified Activities Director PRN - Advance Directives Code Status: Full Code - Mobility Orders Ambulate (with asssist) - Rehabiliation Orders Rehab Potential: Fair Rehab Orders: ROM Exercises, Evaluation for Physical Therapy, Evaluation for Occupational Therapy, Evaluation for Speech Therapy - Treatments Skin tear care topically daily PRN per policy, May check for fecal impaction rectally daily PRN, Fleet enema rectally every other day PRN cleansing purposes - Diet Orders Cardiac CERTIFICATION: I certify that the transfer of the above named patient to an Extended Care Facility is necessary for the continuing treatment of the diagnosis listed. The above information is true and accurate reflection of patient's current condition. Confidential - Redisclosure prohibited without a patient's written consent.
== END 2018-11-26 16:44 | disposition other institution (70) | DRG 308 ==
LOC: EMEROOARM 16:02 → 2SOUTHHOLD 16:02 → SUATTDRO 11-23 09:30 → 2ANU 11-23 19:17
PROVIDERS: ADMIT Internal Medicine; ATTEND Internal Medicine

== ENCOUNTER 2019-02-23 13:05 | Inpatient (IN) ==
--- NOTE | 2019-02-23 13:59 | Emergency Department Note ---
Disposition Clinical Impression: Pleural effusion CHF (congestive heart failure) Qualifiers: Heart failure type: unspecified Heart failure chronicity: unspecified Qualified Code(s): I50.9 - Heart failure, unspecified Pneumonia Qualifiers: Pneumonia type: due to unspecified organism Laterality: unspecified laterality Lung location: unspecified part of lung Qualified Code(s): J18.9 - Pneumonia, unspecified organism Disposition: Admitted As Inpatient Condition: Fair Referrals: Arslan Victoria, VISUAL COORDINATOR [Primary Care Provider] - Forms: ED Satisfaction Letter, Work/School Release General Adult HPI - General Chief complaint: ED Abdominal Pain Stated complaint: fever N/V Time Seen by Provider: 02/23/19 13:29 Source: patient Mode of arrival: EMS Limitations: no limitations Nursing Notes Reviewed: Yes Vital Signs Reviewed: Yes - History of Present Illness HPI Narrative: Patient is a 63-year-old female currently undergoing radiation therapy for thyroid cancer, last treatment was this past . Patient has been feeling unwell since , when she returned to get radiation treatment on Sunday, she had a fever of 102 Fahrenheit and was told she could not get radiation that day. Patient states that she has been having a headache, fever, abdominal pain, pain with urination, feeling of incomplete emptiness, since , but she states that her symptoms got much worse today. She states she feels dizzy when she stands up, has had a cough productive of green sputum, has tried to take Tylenol for her symptoms but these have not relieved her pain. Patient states that she did get her flu shot this year. Patient denies smoking currently. Patient took 2 Tylenol one hour prior to arrival today. Pt does not get br eathing treatments at home. Pain Scale: 8 - Related Data Home Medications Medication Instructions Recorded Confirmed ALPRAZolam [Xanax 0.5 MG Tablet] 0.5 mg PO TID 04/11/18 11/26/18 Aspirin 325 mg PO DAILY 04/11/18 11/26/18 Bumetanide [Bumex] 1 mg PO DAILY 04/11/18 11/26/18 Ferrous Sulfate [Iron] 325 mg PO Q48H 04/11/18 11/26/18 Furosemide [Lasix] 20 mg PO BID 04/11/18 11/26/18 Isosorbide MONOnitrate (24 HR) 30 mg PO DAILY 04/11/18 11/26/18 [Imdur] Nitroglycerin [Nitrostat] 0.4 mg SL Q5M PRN 04/11/18 11/26/18 Pregabalin [Lyrica] 75 mg PO BID 04/11/18 11/26/18 Simvastatin [Zocor] 20 mg PO HS 04/11/18 11/26/18 methIMAzole [Methimazole] 40 mg PO DAILY 04/11/18 11/26/18 Venlafaxine HCl [Venlafaxine HCl 75 mg PO DAILY 05/07/18 11/26/18 ER] Alendronate Sodium [Fosamax] 70 mg PO DAVIS 11/22/18 11/26/18 Previous Rx's Medication Instructions Recorded Apixaban [Eliquis] 5 mg PO BID #60 tablet 04/13/18 Lactobacillus [Culturelle] 1 each PO DAILY #90 cap.sprink 07/24/18 Allergies Allergy/AdvReac Type Severity Reaction Status Date / Time hydrocodone [From Vicodin] Allergy Swelling Verified 11/26/18 19:34 of Lip/Tongue/Throat morphine AdvReac Rash Verified 11/26/18 19:34 Review of Systems: All systems ED: reviewed and negative except as stated. Constitutional: Reports: fever, chills ENT ED: Denies: ear pain, throat pain Cardiovascular: Denies: chest pain, palpitations Respiratory: Reports: cough, dyspnea Gastrointestinal: Denies: diarrhea, constipation Reports: abdominal pain, nausea, vomiting Genitourinary: Reports: urgency, dysuria, frequency Musculoskeletal: Denies: back pain, neck pain Integumentary: Denies: rash, abrasion Neurological: Denies: numbness, paresthesias Reports: headache, weakness Psychiatric: Denies: anxiety, depression Endocrine: Denies: fatigue, heat or cold intolerance Hematological/Lymphatic: Denies: easy bleeding, easy bruising Allergic/Immunologic: Denies: facial swelling, urticaria Past Medical History - Past Medical History Medical history: Reports: arthritis, atrial fibrillation, cancer, CHF, COPD, coronary artery disease, CVA, GERD, hyperlipidemia, hypertension, myocardial infarction, osteoporosis, thyroid disease, other Surgical history: Reports: cholecystectomy, coronary bypass (CABG), hysterectomy, other Psychiatric history: Reports: depression, other - Social History Smoking Status: Never smoker Smokeless Tobacco Status: No Alcohol use: Reports: none Drug use: Reports: none Physical Exam General: A&O x 3. Thin, cachetic female, appears ill but not toxic Head: atraumatic, normocephalic. ENT: No conjunctival injection, no scleral icterus. PERRLA. EOMI. Oropharynx non- erythematous. mucous membranes tacky. Neuro: No focal deficits, no speech deficit, no facial droop, mentating well. BUE/BLE Str 5/5. Pulm: Lungs have diffuse transmitted upper airway sounds, no focal area of rales/ronchi. No wheezes appreciated. Wet cough appreciated during exam. Cardio: Irregular heart rate, could be respiratory variation. Chest not tender to palpation. Abd: Diffusely tender to palpation with voluntary guarding in suprapubic area. Soft. Non-rigid. Not distended. Extremities: Radial pulses 2+ luis, dorsalis pedis/posterior tibialis 2+ luis. No LE edema. No cyanosis, clubbing. Skin: warm, dry, intact. No rashes. Psych: Appropriate mood and affect. Answers questions appropriately. Cooperative with exam. - General Limitations: no limitations General appearance: alert, anxious Course Course Narrative: With pt undergoing cancer treatment, concern for widespread infection. Specific concerns include UTI, PNA, flu. Will get CBC, BMP, BNP, lactic acid, hepatic panel, blood cultures, UA with reflex culture, CXR, EKG. Will administer anti- emetic. Vital Signs Temperature 98.6 F 02/23/19 13:22 Pulse Rate 90 02/23/19 13:22 Respiratory Rate 18 02/23/19 13:22 Blood Pressure 161/77 02/23/19 13:22 O2 Sat by Pulse Oximetry 95 02/23/19 13:22 Temperature 98.6 F 02/23/19 13:22 Pulse Rate 90 02/23/19 13:22 Respiratory Rate 18 02/23/19 13:22 Blood Pressure 161/77 02/23/19 13:22 O2 Sat by Pulse Oximetry 95 02/23/19 13:22 Oxygen Delivery Oxygen Delivery Room Air Medical Decision Making - [facility] Narrative Medical decision making narrative: CTA was negative for PE, but showed increasing pulmonary edema and some concern for PNA. Additionally, BNP was markedly elevated at >4k. Pt was started on appropriate antibiotics while in the department, given a dose of lasix, and admitted to the hospitalist, Dr. Chiu. Patient was given an opportunity to ask questions at bedside and all of their concerns were addressed. Patient verbalized understanding and agreement with plan of care. Pt remained stable while in the department. - Medical Records Medical records reviewed: Yes I reviewed the patient's medical records. - Lab Data Lab results reviewed: Yes I reviewed the patient's lab results. Result diagrams: 02/23/19 14:07 02/23/19 14:07 Lab Results 02/23/19 02/23/19 02/23/19 Range/Units 14:07 14: 14:07 WBC 9.8 (4.3-11.1) K/mcL RBC 4.05 (3.82-4.97) M/mcL Hgb 11.0 L (11.5-15.4) g/dL Hct 34.4 L (35.3-44.9) % MCV 84.9 (83.0-100.0) fL MCH 27.2 L (28.0-33.3) pg MCHC 32.0 (31.6-35.5) g/dL RDW 14.6 H (11.5-14.5) % Plt Count 177 (140-400) K/mcL MPV 11.7 (9.4-12.4) fL Immature Gran % 0.5 (0-4) % Seg Neutrophils % 80.0 % Lymphocytes % 13.3 % Monocytes % 6.0 % Eosinophils % 0.0 % Basophils % 0.2 % Neutrophils # 7.9 (1.6-8.9) K/mcL Lymphocytes # 1.3 (0.6-4.6) K/mcL Monocytes # 0.6 (0.0-1.3) K/mcL Eosinophils # 0.0 (0.0-0.6) K/mcL Basophils # 0.0 (0.0-0.2) K/mcL Sodium 131 L (136-145) mEq/L Potassium 3.5 (3.5-5.1) mEq/L Chloride 101 (98-107) mEq/L Carbon Dioxide 19 L (23-29) mEq/L BUN 8 (8-23) mg/dL Creatinine 0.23 L (0.60-1.20) mg/dL Est GFR ( Amer) > 60 (> 60) Est GFR (Non-Af Amer) > 60 (> 60) BUN/Creatinine Ratio 35 H (6-26) Glucose 96 (70-105) mg/dL Calculated Osmolality 270 L (280-300) Lactic Acid 1.2 (0.5-2.2) mmol/L Calcium 8.7 (8.6-10.3) mg/dL Total Bilirubin 1.8 H (0.3-1.0) mg/dL Direct Bilirubin 0.8 H (0.0-0.2) mg/dL Indirect Bilirubin 1.0 (0.0-1.2) mg/dL AST 37 (13-39) Units/L ALT 20 (7-52) Units/L Alkaline Phosphatase 431 H (34-104) Units/L Troponin I 0.05 H* (< 0.04) ng/mL B-Natriuretic Peptide (Less than 100) pg/mL Serum Total Protein 7.5 (6.4-8.9) g/dL Albumin 3.6 (3.5-5.7) g/dL Globulin 3.9 H (2.4-3.5) g/dL Albumin/Globulin Ratio 0.9 L (1.1-2.2) 02/23/19 Range/Units 14:07 WBC (4.3-11.1) K/mcL RBC (3.82-4.97) M/mcL Hgb (11.5-15.4) g/dL Hct (35.3-44.9) % MCV (83.0-100.0) fL MCH (28.0-33.3) pg MCHC (31.6-35.5) g/dL RDW (11.5-14.5) % Plt Count (140-400) K/mcL MPV (9.4-12.4) fL Immature Gran % (0-4) % Seg Neutrophils % % Lymphocytes % % Monocytes % % Eosinophils % % Basophils % % Neutrophils # (1.6-8.9) K/mcL Lymphocytes # (0.6-4.6) K/mcL Monocytes # (0.0-1.3) K/mcL Eosinophils # (0.0-0.6) K/mcL Basophils # (0.0-0.2) K/mcL Sodium (136-145) mEq/L Potassium (3.5-5.1) mEq/L Chloride (98-107) mEq/L Carbon Dioxide (23-29) mEq/L BUN (8-23) mg/dL Creatinine (0.60-1.20) mg/dL Est GFR ( Amer) (> 60) Est GFR (Non-Af Amer) (> 60) BUN/Creatinine Ratio (6-26) Glucose (70-105) mg/dL Calculated Osmolality (280-300) Lactic Acid (0.5-2.2) mmol/L Calcium (8.6-10.3) mg/dL Total Bilirubin (0.3-1.0) mg/dL Direct Bilirubin (0.0-0.2) mg/dL Indirect Bilirubin (0.0-1.2) mg/dL AST (13-39) Units/L ALT (7-52) Units/L Alkaline Phosphatase (34-104) Units/L Troponin I (< 0.04) ng/mL B-Natriuretic Peptide 4041 H (Less than 100) pg/mL Serum Total Protein (6.4-8.9) g/dL Albumin (3.5-5.7) g/dL Globulin (2.4-3.5) g/dL Albumin/Globulin Ratio (1.1-2.2) - Radiology Data Radiology results reviewed: Yes I reviewed the patient's radiology results. Chest X-Ray 02/23/19 13:54 IMPRESSION: Small to moderate right pleural effusion, worsened from prior exam 12/03/2018. Worsened patchy airspace opacities to the right lower lung zone which may relate to atelectasis or pneumonia. Continued follow-up recommended. D/ / 02/23/2019 14:27:59 Mina Meza MD / bcarter Interpreting Provider: Mina Meza MD Chest CTA 02/23/19 14:17 IMPRESSION: Negative study for pulmonary embolism. Small to moderate right pleural effusion. Patchy areas of consolidation/ground-glass opacity to the lungs bilaterally involving bilateral lower lobes, right middle lobe, as well as left upper lobe. Some of these have a somewhat tree-in-bud type configuration. Findings are felt most likely to reflect multifocal infectious/inflammatory process. However, follow-up to resolution recommended. Mild central bronchial wall thickening which can be seen with bronchitis. Stable mediastinal lymphadenopathy. Stable cardiomegaly. Atherosclerosis to include coronary artery disease. D/ / 02/23/2019 17:26:50 Mina Meza MD / earnold Interpreting Provider: Mina Meza MD Abdomen/Pelvis CT 02/23/19 15:00 IMPRESSION: *No acute process identified within the abdomen or pelvis. *Partially visualized right-sided pleural effusion. Please see CTA chest report for complete details. *Evidence of old granulomas disease. D/ / Horacio gM DO / Horacio Mg DO Interpreting Provider: Horacio Mg DO - EKG Data EKG #1 EKG attestation: Yes I reviewed and interpreted this EKG. EKG results narrative: 1422: HR 87, rhythm sinu, axis normal. RI 209 and prolonged, QRS 97, QTc 488. Isolated 1mm ST elevation in V2. LVH. EKG #2 EKG attestation: Yes I reviewed and interpreted this EKG. EKG results narrative: 1422: HR 87, rhythm sinu, axis normal. RI 209 and prolonged, QRS 97, QTc 488. Isolated 1mm ST elevation in V2. LVH.
[2019-02-23] MEDS ORDERED: Ondansetron ODT 4 MG TAB.RAPDIS SL ONE (14:06)
[2019-02-23] MEDS ORDERED: Isovue-370 500 ML BOTTLE IVP ONE ×2 (14:17→15:00)
[2019-02-23 14:23] LABS: Basophils % 0.2 %; Hematocrit 34.4 % (35.3-44.9); Immature Granulocytes % 0.5 % (0-4); Lymphocytes # 1.3 K/mcL (0.6-4.6); Lymphocytes % 13.3 %; Mean Corpuscular Hemoglobin 27.2 pg (28.0-33.3); Mean Corpuscular Volume 84.9 fL (83.0-100.0); Mean Platelet Volume 11.7 fL (9.4-12.4); Monocytes # 0.6 K/mcL (0.0-1.3); Neutrophils # 7.9 K/mcL (1.6-8.9); Platelet Count 177 K/mcL (140-400); Red Blood Count 4.05 M/mcL (3.82-4.97); Red Cell Distribution Width 14.6 % (11.5-14.5)
[2019-02-23] MEDS ORDERED: cefTRIAXone 1,000 MG in 0.9 % Sodium Chloride Mini Bag 100 ML IVPB ONE (14:46)
[2019-02-23] MEDS ORDERED: Azithromycin 500 MG in D5% in Water 250 ML IVPB ONE (14:46)
[2019-02-23 14:51] LABS: Alanine Aminotransferase 20 Units/L (7-52); Albumin 3.6 g/dL (3.5-5.7); Albumin/Globulin Ratio 0.9 (1.1-2.2); Alkaline Phosphatase 431 Units/L (34-104); Aspartate Amino Transferase 37 Units/L (13-39); BUN/Creatinine Ratio 35 (6-26); Bilirubin,Direct 0.8 mg/dL (0.0-0.2); Bilirubin,Total 1.8 mg/dL (0.3-1.0); Blood Urea Nitrogen 8 mg/dL (8-23); Calcium 8.7 mg/dL (8.6-10.3); Carbon Dioxide 19 mEq/L (23-29); Chloride 101 mEq/L (98-107); Globulin 3.9 g/dL (2.4-3.5); Glucose 96 mg/dL (70-105); Osmolality,Calculated 270 (280-300); Potassium 3.5 mEq/L (3.5-5.1); Sodium 131 mEq/L (136-145); Total Protein 7.5 g/dL (6.4-8.9); Troponin I 0.05 ng/mL (< 0.04); eGFR For Non-African Americans > 60 (> 60)
[2019-02-23] MEDS ORDERED: Ondansetron 4 MG/2 ML VIAL IVP ONE (14:52)
[2019-02-23] MEDS ORDERED: Aspirin 325 MG TABLET PO ONE (14:59)
[2019-02-23] MEDS ORDERED: Furosemide 20 MG/2 ML VIAL IVP ONE (14:59)
--- NOTE | 2019-02-23 16:12 | Emergency Department Note ---
Disposition Clinical Impression: Pleural effusion CHF (congestive heart failure) Qualifiers: Heart failure type: unspecified Heart failure chronicity: unspecified Qualified Code(s): I50.9 - Heart failure, unspecified Pneumonia Qualifiers: Pneumonia type: due to unspecified organism Laterality: unspecified laterality Lung location: unspecified part of lung Qualified Code(s): J18.9 - Pneumonia, unspecified organism Disposition: Admitted As Inpatient Condition: Good Referrals: Arslan Victoria, SUBMARINE ADVISORY TEAM WATCH OFFICER [Primary Care Provider] - Forms: ED Satisfaction Letter, Work/School Release General Adult HPI - General Chief complaint: ED Abdominal Pain Stated complaint: fever N/V Time Seen by Provider: 02/23/19 13:29 Source: patient Mode of arrival: EMS Limitations: no limitations - History of Present Illness Pain Scale: 8 - Related Data Home Medications Medication Instructions Recorded Confirmed ALPRAZolam [Xanax 0.5 MG Tablet] 0.5 mg PO TID 04/11/18 11/26/18 Aspirin 325 mg PO DAILY 04/11/18 11/26/18 Bumetanide [Bumex] 1 mg PO DAILY 04/11/18 11/26/18 Ferrous Sulfate [Iron] 325 mg PO Q48H 04/11/18 11/26/18 Furosemide [Lasix] 20 mg PO BID 04/11/18 11/26/18 Isosorbide MONOnitrate (24 HR) 30 mg PO DAILY 04/11/18 11/26/18 [Imdur] Nitroglycerin [Nitrostat] 0.4 mg SL Q5M PRN 04/11/18 11/26/18 Pregabalin [Lyrica] 75 mg PO BID 04/11/18 11/26/18 Simvastatin [Zocor] 20 mg PO HS 04/11/18 11/26/18 methIMAzole [Methimazole] 40 mg PO DAILY 04/11/18 11/26/18 Venlafaxine HCl [Venlafaxine HCl 75 mg PO DAILY 05/07/18 11/26/18 ER] Alendronate Sodium [Fosamax] 70 mg PO DAVIS 11/22/18 11/26/18 Previous Rx's Medication Instructions Recorded Apixaban [Eliquis] 5 mg PO BID #60 tablet 04/13/18 Lactobacillus [Culturelle] 1 each PO DAILY #90 cap.sprink 07/24/18 Allergies Allergy/AdvReac Type Severity Reaction Status Date / Time hydrocodone [From Vicodin] Allergy Swelling Verified 11/26/18 19:34 of Lip/Tongue/Throat morphine AdvReac Rash Verified 11/26/18 19:34 Past Medical History - Past Medical History Medical history: Reports: arthritis, atrial fibrillation, cancer, CHF, COPD, coronary artery disease, CVA, GERD, hyperlipidemia, hypertension, myocardial infarction, osteoporosis, thyroid disease, other Surgical history: Reports: cholecystectomy, coronary bypass (CABG), hysterectomy, other Psychiatric history: Reports: depression, other - Social History Smoking Status: Never smoker Smokeless Tobacco Status: No Alcohol use: Reports: none Drug use: Reports: none Physical Exam - General Limitations: no limitations General appearance: alert, anxious Course Vital Signs Temperature 98.6 F 02/23/19 13:22 Pulse Rate 90 02/23/19 13:22 Respiratory Rate 18 02/23/19 13:22 Blood Pressure 161/77 02/23/19 13:22 O2 Sat by Pulse Oximetry 95 02/23/19 13:22 Temperature 98.6 F 02/23/19 13:22 Pulse Rate 90 02/23/19 13:22 Respiratory Rate 18 02/23/19 13:22 Blood Pressure 161/77 02/23/19 13:22 O2 Sat by Pulse Oximetry 95 02/23/19 13:22 Oxygen Delivery Oxygen Delivery Room Air Medical Decision Making - Lab Data Result diagrams: 02/23/19 14:07 02/23/19 14:07 Lab Results 02/23/19 02/23/19 02/23/19 Range/Units 14:07 14:07 14:07 WBC 9.8 (4.3-11.1) K/mcL RBC 4.05 (3.82-4.97) M/mcL Hgb 11.0 L (11.5-15.4) g/dL Hct 34.4 L (35.3-44.9) % MCV 84.9 (83.0-100.0) fL MCH 27.2 L (28.0-33.3) pg MCHC 32.0 (31.6-35.5) g/dL RDW 14.6 H (11.5-14.5) % Plt Count 177 (140-400) K/mcL MPV 11.7 (9.4-12.4) fL Immature Gran % 0.5 (0-4) % Seg Neutrophils % 80.0 % Lymphocytes % 13.3 % Monocytes % 6.0 % Eosinophils % 0.0 % Basophils % 0.2 % Neutrophils # 7.9 (1.6-8.9) K/mcL Lymphocytes # 1.3 (0.6-4.6) K/mcL Monocytes # 0.6 (0.0-1.3) K/mcL Eosinophils # 0.0 (0.0-0.6) K/mcL Basophils # 0.0 (0.0-0.2) K/mcL Sodium 131 L (136-145) mEq/L Potassium 3.5 (3.5-5.1) mEq/L Chloride 101 (98-107) mEq/L Carbon Dioxide 19 L (23-29) mEq/L BUN 8 (8-23) mg/dL Creatinine 0.23 L (0.60-1.20) mg/dL Est GFR ( Amer) > 60 (> 60) Est GFR (Non-Af Amer) > 60 (> 60) BUN/Creatinine Ratio 35 H (6-26) Glucose 96 (70-105) mg/dL Calculated Osmolality 270 L (280-300) Lactic Acid 1.2 (0.5-2.2) mmol/L Calcium 8.7 (8.6-10.3) mg/dL Total Bilirubin 1.8 H (0.3-1.0) mg/dL Direct Bilirubin 0.8 H (0.0-0.2) mg/dL Indirect Bilirubin 1.0 (0.0-1.2) mg/dL AST 37 (13-39) Units/L ALT 20 (7-52) Units/L Alkaline Phosphatase 431 H (34-104) Units/L Troponin I 0.05 H* (< 0.04) ng/mL B-Natriuretic Peptide (Less than 100) pg/mL Serum Total Protein 7.5 (6.4-8.9) g/dL Albumin 3.6 (3.5-5.7) g/dL Globulin 3.9 H (2.4-3.5) g/dL Albumin/Globulin Ratio 0.9 L (1.1-2.2) 02/23/19 Range/Units 14:07 WBC (4.3-11.1) K/mcL RBC (3.82-4.97) M/mcL Hgb (11.5-15.4) g/dL Hct (35.3-44.9) % MCV (83.0-100.0) fL MCH (28.0-33.3) pg MCHC (31.6-35.5) g/dL RDW (11.5-14.5) % Plt Count (140-400) K/mcL MPV (9.4-12.4) fL Immature Gran % (0-4) % Seg Neutrophils % % Lymphocytes % % Monocytes % % Eosinophils % % Basophils % % Neutrophils # (1.6-8.9) K/mcL Lymphocytes # (0.6-4.6) K/mcL Monocytes # (0.0-1.3) K/mcL Eosinophils # (0.0-0.6) K/mcL Basophils # (0.0-0.2) K/mcL Sodium (136-145) mEq/L Potassium (3.5-5.1) mEq/L Chloride (98-107) mEq/L Carbon Dioxide (23-29) mEq/L BUN (8-23) mg/dL Creatinine (0.60-1.20) mg/dL Est GFR ( Amer) (> 60) Est GFR (Non-Af Amer) (> 60) BUN/Creatinine Ratio (6-26) Glucose (70-105) mg/dL Calculated Osmolality (280-300) Lactic Acid (0.5-2.2) mmol/L Calcium (8.6-10.3) mg/dL Total Bilirubin (0.3-1.0) mg/dL Direct Bilirubin (0.0-0.2) mg/dL Indirect Bilirubin (0.0-1.2) mg/dL AST (13-39) Units/L ALT (7-52) Units/L Alkaline Phosphatase (34-104) Units/L Troponin I (< 0.04) ng/mL B-Natriuretic Peptide 4041 H (Less than 100) pg/mL Serum Total Protein (6.4-8.9) g/dL Albumin (3.5-5.7) g/dL Globulin (2.4-3.5) g/dL Albumin/Globulin Ratio (1.1-2.2) Attestation Statement - Attestation Attestation: I examined this patient and my medical decision-making was reviewed with the Resident Physician. I agree with the documented findings, disposition and treatment plan as described except to the extent set forth below. 63 year old female preesnts to the ED with complaints of NV and productive cough. She essentially has an elevated BNP to 4000 and pleural effusions in addition to possible pnuemoina. She is currennlty be treated for thryoid cancer with radiaiton therapy and CTA neg for PE. We have started CAP therapy and will admit to medicne. lasix therapy given
[2019-02-23 18:15] LABS: Bilirubin,Urine Negative (Negative); Blood,Urine Trace (Negative); Clarity,Urine Clear (Clear); Color,Urine Yellow (Yellow); Glucose,Urine (UA) Normal (Normal); Ketones,Urine Negative (Negative); Leukocyte Esterase,Urine Negative (Negative); Nitrite,Urine Negative (Negative); PH,Urine 6.5 pH Units (5.0-8.0); Protein,Urine Negative (Neg-Trace); Specific Gravity,Urine 1.017 (1.010-1.025); Urobilinogen,Urine Normal (Normal)
[2019-02-23 18:17] LABS: Bacteria,Urine None Seen per hpf (None-Few); Hyaline Casts,Urine None Seen per lpf (None-Few); RBC,Urine 0-3 per hpf (0-3); Squamous Epithelial Cell,Urine Moderate per lpf (None-Few); WBC,Urine 0-3 per hpf (0-3)
[2019-02-23] MEDS ORDERED: Naloxone 0.4 MG/ML INJ IVP PRN (18:21)
--- NOTE | 2019-02-23 18:24 | Internal Med History&Physical ---
Date of Encounter: 02/23/19 Time of Encounter: 18:21 Internal Medicine - H&P: HPI Chief complaint: fever, shortness of breath Admitted From: Home Plans for Post Hospital Care: Home History of present illness: Ms. Mcdaniels is a 63 year old female with extensive past medical history as mentioned below came with complain of cough, fever and SOB. Patient had her radiation for newly diagnosed thyroid cancer(not amenable to surgery due to cardiac risk factors) on after which she started feeling sick. She later had fever and cough and later difficulty breathing and productive sputum. He has history of COPD and uses 2 L at home which had to be increased to 2.5L and more sometime. She did take her flu vaccines. Denies any chest pain. She had last antibiotic course in November. She does have history of cdiff in past. She does not know her medication by name but does confirm she takes eliquis, statin, methimazole, and could not confirm other medications. She denies any diarrhea, abdominal pain, vision problems. 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 She still has to finish her 2 rounds of radiation. Her medications will need to be confirmed. Discussed code status with her and she does not want CPR or intubation but is okay with Bipap if needed. Past Med Surg Social Fam HX - Past Medical History Medical history: arthritis, atrial fibrillation, cancer, CHF, COPD, coronary artery disease, CVA, GERD, hyperlipidemia, hypertension, myocardial infarction, osteoporosis, thyroid disease, other Additional medical history: thyroid cancer Psychiatric history: depression, other - Past Surgical History Surgical History: cholecystectomy, coronary bypass (CABG), hysterectomy, other Additional surgical history: hip surgury. Kidney stones - Social History Smoking Status: Never smoker Smokeless Tobacco Status: No Alcohol use: none Drug use: none - Family History Father Family Member Ethnicity: Non- Living Status: Hx Family Cardiac Disorders: Yes ([place]) Brother Family Member Ethnicity: Non- Living Status: Sister Family Member Ethnicity: Non- Twin of Family Member: Yes, Identical Living Status: Hx Family Cardiac Disorders: Yes ([place]) Hx Family Cancer: Yes (Colon) Mother Adopted: No Family Member Ethnicity: Non- Living Status: Hx Family Cardiac Disorders: No Hx Family Respiratory Disorders: No Hx Family Cancer: Yes Hx Family GI Disorders: Yes (Bowel Cancer) Hx Family Endocrine Disorder: Yes (DM) Hx Family Neuromuscular Disorders: No Hx Family Neurologic Disorders: No Hx Family HEENT Disorders: No Hx Family Autoimmune Disorders: No Internal Medicine - H&P: Meds ALPRAZolam [Xanax 0.5 MG Tablet] 0.5 mg PO TID 04/11/18 [History] Aspirin 325 mg PO DAILY 04/11/18 [History] Bumetanide [Bumex] 1 mg PO DAILY 04/11/18 [History] Ferrous Sulfate [Iron] 325 mg PO Q48H 04/11/18 [History] Furosemide [Lasix] 20 mg PO BID 04/11/18 [History] Isosorbide MONOnitrate (24 HR) [Imdur] 30 mg PO DAILY 04/11/18 [History] Nitroglycerin [Nitrostat] 0.4 mg SL Q5M PRN 04/11/18 [History] Pregabalin [Lyrica] 75 mg PO BID 04/11/18 [History] Simvastatin [Zocor] 20 mg PO HS 04/11/18 [History] methIMAzole [Methimazole] 40 mg PO DAILY 04/11/18 [History] Apixaban [Eliquis] 5 mg PO BID #60 tablet 04/13/18 [Rx] Venlafaxine HCl [Venlafaxine HCl ER] 75 mg PO DAILY 05/07/18 [History] Lactobacillus [Culturelle] 1 each PO DAILY #90 cap.sprink 07/24/18 [Rx] Alendronate Sodium [Fosamax] 70 mg PO DAVIS 11/22/18 [History] Allergy/AdvReac Type Severity Reaction Status Date / Time hydrocodone [From Vicodin] Allergy Swelling Verified 11/26/18 19:34 of Lip/Tongue/Throat morphine AdvReac Rash Verified 11/26/18 19:34 All Systems PM: A 10-system review of systems was performed and is negative for pertinent findings except as documented above in the HPI. - Constitutional Vitals: Temp Pulse Resp BP Pulse Ox 98.6 F 90 18 161/77 95 02/23/19 13:22 02/23/19 13:22 02/23/19 13:22 02/23/19 13:22 02/23/19 13:22 Exam: Constitutional: No Apparent Distress. Well groomed. looks old for age Eyes : Sclera white, conjunctiva clear, no lid lag, PEARLA. ENT : Decreased hearing. Rt>Lt. Moist mucus membranes. No JVD, no cervical lymphadenopathy. Respiratory : Coarse breath sounds, b/l rhonchi Cardiovascular : RRR, +S1, +S2. no murmur, gallop, rubs. CABG scar with wire present. GI/Abdominal : Soft, Non-tender, Non-distended, normal bowel sounds, soft, no peritoneal signs. Musculoskeletal: no deformity noted. trace edema, warm extremities, pulses palpable and symmetrical in UE/LE. no calf tenderness. Neurological: AO X3, CN II-XII grossly intact, grossly normal motor and sensory exam. Skin: No skin rash, lesions or ulcers noted. Pych: Good insight and judgement. Intact memory. AOx3. Internal Med - H&P Results - Labs CBC & Chem 7: 02/23/19 14:07 02/23/19 14:07 Labs: Short CBC 02/23/19 Range/Units 14:07 WBC 9.8 (4.3-11.1) K/mcL Hgb 11.0 L (11.5-15.4) g/dL Hct 34.4 L (35.3-44.9) % Plt Count 177 (140-400) K/mcL Neutrophils # 7.9 (1.6-8.9) K/mcL BMP 02/23/19 14:07 Sodium 131 L Potassium 3.5 Chloride 101 Carbon Dioxide 19 L BUN 8 Creatinine 0.23 L Glucose 96 Calcium 8.7 Cardiac Enzymes 02/23/19 Range/Units 14:07 Troponin I 0.05 H* (< 0.04) ng/mL Liver Function 02/23/19 Range/Units 14:07 Total Bilirubin 1.8 H (0.3-1.0) mg/dL Direct Bilirubin 0.8 H (0.0-0.2) mg/dL AST 37 (13-39) Units/L ALT 20 (7-52) Units/L Alkaline Phosphatase 431 H (34-104) Units/L Albumin 3.6 (3.5-5.7) g/dL Urine 02/23/19 Range/Units 18:04 Urine Color Yellow (Yellow) Urine Clarity Clear (Clear) Urine pH 6.5 (5.0-8.0) pH Units Ur Specific [place] 1.017 (1.010-1.025) Urine Protein Negative (Neg-Trace) mg/dL Urine Glucose (UA) Normal (Normal) mg/dL - EKG Data -: EKG Interpreted by Myself EKG shows normal: sinus rhythm - Impressions ITS Impressions Chest X-Ray 02/23/19 13:54 IMPRESSION: Small to moderate right pleural effusion, worsened from prior exam 12/03/2018. Worsened patchy airspace opacities to the right lower lung zone which may relate to atelectasis or pneumonia. Continued follow-up recommended. D/ / 02/23/2019 14:27:59 Mina Meza MD / [facility] Interpreting Provider: Mina Meza MD Chest CTA 02/23/19 14:17 IMPRESSION: Negative study for pulmonary embolism. Small to moderate right pleural effusion. Patchy areas of consolidation/ground-glass opacity to the lungs bilaterally involving bilateral lower lobes, right middle lobe, as well as left upper lobe. Some of these have a somewhat tree-in-bud type configuration. Findings are felt most likely to reflect multifocal infectious/inflammatory process. However, follow-up to resolution recommended. Mild central bronchial wall thickening which can be seen with bronchitis. Stable mediastinal lymphadenopathy. Stable cardiomegaly. Atherosclerosis to include coronary artery disease. D/ / 02/23/2019 17:26:50 Mina Meza MD / [facility] Interpreting Provider: Mina Meza MD Abdomen/Pelvis CT 02/23/19 15:00 IMPRESSION: *No acute process identified within the abdomen or pelvis. *Partially visualized right-sided pleural effusion. Please see CTA chest report for complete details. *Evidence of old granulomas disease. D/ / Horacio Mg DO / Horacio Mg DO Interpreting Provider: Horacio Mg DO - Assessment and Plan (1) Pneumonia Current Visit: Yes Status: Acute Assessment and plan: SOB likely from CAP-unclear organism Will obtain respiratory infectious panel, blood culture, sputum culture Continue ceftriaxone and azithromycin given history cdiff. Will broaden if not responding clinically Qualifiers: Pneumonia type: due to unspecified organism Laterality: bilateral Lung location: unspecified part of lung Qualified Code(s): J18.9 - Pneumonia, unspecified organism (2) Acute and chronic respiratory failure with hypoxia Current Visit: Yes Status: Acute Assessment and plan: likely related to pneumia on base line COPD (3) CHF (congestive heart failure) Current Visit: Yes Status: Acute Assessment and plan: BNP elevated but Not in exacerbation as clinically without fluid overload Will confirm home diuretics dose before starting both lasix and bumex Qualifiers: Heart failure type: diastolic Heart failure chronicity: chronic Qualified Code(s): I50.32 - Chronic diastolic (congestive) heart failure (4) Alkaline phosphatase elevation Current Visit: No Status: Acute Assessment and plan: Has been elevated since 2017. Likely also has been worked including GI evaluation with MRCP with negative CBD stone. Has had cholecystectomy Had CT abdomen done was unremarkable Will review previous charts in details about other workup hold further testing for now (5) Hyperthyroidism Current Visit: No Status: Acute (6) Afib Current Visit: No Status: Chronic Assessment and plan: rate controlled Continue home medication including Diltiazem and eliquis Will confirm other medication Qualifiers: Atrial fibrillation type: chronic Qualified Code(s): I48.2 - Chronic atrial fibrillation (7) CAD (coronary artery disease) Current Visit: No Status: Chronic Assessment and plan: Continue home medications once confirmed. Does not appear to be Betablocker. Qualifiers: Coronary Disease-Associated Artery/Lesion type: [place] artery [place] vs. transplanted heart: [place] heart Associated angina: with stable angina Qualified Code(s): I25.118 - Atherosclerotic heart disease of [place] coronary artery with other forms of angina pectoris (8) COPD (chronic obstructive pulmonary disease) Current Visit: No Status: Chronic Assessment and plan: [place] have some rhonchi b/l possibly from pneumonia Will keep on supplemental oxygen and duonebs hold steroid for now. Will place on azithromycin Qualifiers: COPD type: unspecified COPD Qualified Code(s): J44.9 - Chronic obstructive pulmonary disease, unspecified (9) Chronic respiratory failure with hypoxia Current Visit: No Status: Chronic - Time Spent With Patient Total time spent is greater than 50% in coordination of care (as documented) at patient's floor/unit and/or counseling patient:
[2019-02-23] MEDS ORDERED: Acetaminophen 325 MG TABLET PO ONE (23:02)
[2019-02-24 00:22] LABS: Adenovirus Not Detected (Not Detect); Bordetella Pertussis Not Detected (Not Detect); Chlamydophila pneumoniae Not Detected (Not Detect); Coronavirus 229E Not Detected (Not Detect); Coronavirus HKU1 Not Detected (Not Detect); Coronavirus NL63 Not Detected (Not Detect); Coronavirus OC43 Not Detected (Not Detect); Human Metapneumovirus Not Detected (Not Detect); Human Rhinovirus/Enterovirus Not Detected (Not Detect); Influenza A Subtype 2009 H1 Not Detected (Not Detect); Influenza A Untypeable Not Detected (Not Detect); Influenza B Not Detected (Not Detect); Parainfluenza Virus 1 Not Detected (Not Detect); Parainfluenza Virus 2 Not Detected (Not Detect); Parainfluenza Virus 3 Not Detected (Not Detect); Parainfluenza Virus 4 Not Detected (Not Detect); Respiratory Syncytial Virus DETECTED (Not Detect)
[2019-02-24 00:23] LABS: Mycoplasma pneumoniae Not Detected (Not Detect)
[2019-02-24] MEDS: Pregabalin 75 MG CAPSULE PO SCH ×3 (04:51→22:17)
[2019-02-24] MEDS: Apixaban 5 MG TABLET PO SCH ×3 (04:51→22:17)
[2019-02-24] MEDS: ALPRAZolam 0.5 MG TABLET PO SCH ×4 (04:52→22:17)
[2019-02-24 06:09] LABS: Hematocrit 36.3 % (35.3-44.9); Hemoglobin 11.3 g/dL (11.5-15.4); Mean Corpuscular HGB Conc 31.1 g/dL (31.6-35.5); Mean Corpuscular Hemoglobin 27.2 pg (28.0-33.3); Mean Corpuscular Volume 87.3 fL (83.0-100.0); Mean Platelet Volume 11.8 fL (9.4-12.4); Platelet Count 153 K/mcL (140-400); Red Blood Count 4.16 M/mcL (3.82-4.97); Red Cell Distribution Width 14.7 % (11.5-14.5)
[2019-02-24 06:28] LABS: BUN/Creatinine Ratio 35 (6-26); Blood Urea Nitrogen 11 mg/dL (8-23); Calcium 8.9 mg/dL (8.6-10.3); Carbon Dioxide 26 mEq/L (23-29); Chloride 105 mEq/L (98-107); Glucose 91 mg/dL (70-105); Osmolality,Calculated 289 (280-300); Potassium 3.5 mEq/L (3.5-5.1); Sodium 140 mEq/L (136-145); eGFR For Non-African Americans > 60 (> 60)
[2019-02-24] MEDS: Furosemide 20 MG TABLET PO SCH ×2 (07:35→16:55)
[2019-02-24] MEDS: Aspirin 325 MG TABLET PO SCH (07:35)
[2019-02-24] MEDS: Isosorbide MONOnitrate (24 HR) 30 MG TAB.ER.24H PO SCH (07:35)
--- NOTE | 2019-02-24 08:14 | Internal Med Progress Note ---
Hospitalist Progress Note - Encounter Date of Encounter: 02/24/19 Time of Encounter: 07:15 - Subjective Interval History: Patient seen and examined this morning at bedside. No acute overnight events. Breathing minimally improved. Fever overnight. Denies any chest pain abdominal pain bowel or bladder complaints. - Exam Vitals: Temp Pulse Resp BP Pulse Ox 97.8 F 69 16 109/59 94 02/24/19 03:40 02/24/19 03:40 02/24/19 03:40 02/24/19 03:40 02/24/19 03:40 Exam: Constitutional: No Apparent Distress. Well groomed. looks old for age Respiratory : Coarse breath sounds, b/l rhonchi Cardiovascular : RRR, +S1, +S2. no murmur, gallop, rubs. CABG scar with wire present. GI/Abdominal : Soft, Non-tender, Non-distended, normal bowel sounds, soft, no peritoneal signs. Musculoskeletal: no deformity noted. trace edema, no calf tenderness. Neurological: AO X3, CN II-XII grossly intact, grossly normal motor and sensory exam. Skin: No skin rash, lesions or ulcers noted. - Assessment and Plan (1) Pneumonia Current Visit: Yes Status: Acute (2) Acute and chronic respiratory failure with hypoxia Current Visit: Yes Status: Acute (3) CHF (congestive heart failure) Current Visit: Yes Status: Acute (4) Alkaline phosphatase elevation Current Visit: No Status: Acute (5) Hyperthyroidism Current Visit: No Status: Acute (6) Afib Current Visit: No Status: Chronic (7) CAD (coronary artery disease) Current Visit: No Status: Chronic (8) COPD (chronic obstructive pulmonary disease) Current Visit: No Status: Chronic (9) Chronic respiratory failure with hypoxia Current Visit: No Status: Chronic - Summary of Assessment and Plan Summary of Assessment and Plan: Pneumonia - Likely viral. RIP positive for RSV - f/u blood culture and sputum culture - stop ceftriaxone. c/w azithromycin Acute and chronic respiratory failure with hypoxia - likely related to pneumonia and COPD exacerbation Diastolic CHF - BNP elevated but not in exacerbation - Home meds being verified. c/w home lasix. Alkaline phosphatase elevation - Elevated since 2017. Likely also has been worked including GI evaluation with MRCP with negative CBD stone. Has had cholecystectomy - CT abdomen done was unremarkable - hold further testing for now. Could be followed outpatient. Hyperthyroidism - unclear if still on methimazole. Will confirm with pharmacy Afib - rate controlled. Confirme home meds - c/w Diltiazem and eliquis for now. appears had bradycardia from beta delfino. CAD - home medications once confirmed. - Does not appear to be Betablocker. COPD exacerbation - likely cause by RSV pneumonia - started on steroids. start duonebs. c/w azithromycing - confirm home medications Chronic respiratory failure with hypoxia - from copd. c/w oxygen as needed - Time Spent with Patient Total time spent is greater than 50% in coordination of care (as documented) at patient's floor/unit and/or counseling patient: Internal Medicine: Result - Labs CBC & Chem 7: 02/24/19 05:00 02/24/19 05:00 Labs: Short CBC 02/23/19 02/24/19 Range/Units 14:07 05:00 WBC 9.8 5.5 (4.3-11.1) K/mcL Hgb 11.0 L 11.3 L (11.5-15.4) g/dL Hct 34.4 L 36.3 (35.3-44.9) % Plt Count 177 153 (140-400) K/mcL Neutrophils # 7.9 (1.6-8.9) K/mcL BMP 02/23/19 02/24/19 14:07 05:00 Sodium 131 L 140 D Potassium 3.5 3.5 Chloride 101 105 Carbon Dioxide 19 L 26 BUN 8 11 Creatinine 0.23 L 0.31 L Glucose 96 91 Calcium 8.7 8.9 Cardiac Enzymes 02/23/19 02/23/19 02/23/19 Range/Units 14:07 19:11 23:08 Troponin I 0.05 H* 0.04 H* 0.04 H* (< 0.04) ng/mL 02/24/19 Range/Units 05:00 Troponin I 0.03 (< 0.04) ng/mL Liver Function 02/23/19 Range/Units 14:07 Total Bilirubin 1.8 H (0.3-1.0) mg/dL Direct Bilirubin 0.8 H (0.0-0.2) mg/dL AST 37 (13-39) Units/L ALT 20 (7-52) Units/L Alkaline Phosphatase 431 H (34-104) Units/L Albumin 3.6 (3.5-5.7) g/dL Urine 02/23/19 Range/Units 18:04 Urine Color Yellow (Yellow) Urine Clarity Clear (Clear) Urine pH 6.5 (5.0-8.0) pH Units Ur Specific [place] 1.017 (1.010-1.025) Urine Protein Negative (Neg-Trace) mg/dL Urine Glucose (UA) Normal (Normal) mg/dL - Impressions Impressions Chest X-Ray 02/23/19 13:54 IMPRESSION: Small to moderate right pleural effusion, worsened from prior exam 12/03/2018. Worsened patchy airspace opacities to the right lower lung zone which may relate to atelectasis or pneumonia. Continued follow-up recommended. D/ / 02/23/2019 14:27:59 Mina Meza MD / [facility] Interpreting Provider: Mina Meza MD Chest CTA 02/23/19 14:17 IMPRESSION: Negative study for pulmonary embolism. Small to moderate right pleural effusion. Patchy areas of consolidation/ground-glass opacity to the lungs bilaterally involving bilateral lower lobes, right middle lobe, as well as left upper lobe. Some of these have a somewhat tree-in-bud type configuration. Findings are felt most likely to reflect multifocal infectious/inflammatory process. However, follow-up to resolution recommended. Mild central bronchial wall thickening which can be seen with bronchitis. Stable mediastinal lymphadenopathy. Stable cardiomegaly. Atherosclerosis to include coronary artery disease. D/ / 02/23/2019 17:26:50 Mina Meza MD / [facility] Interpreting Provider: Mina Meza MD Abdomen/Pelvis CT 02/23/19 15:00 IMPRESSION: *No acute process identified within the abdomen or pelvis. *Partially visualized right-sided pleural effusion. Please see CTA chest report for complete details. *Evidence of old granulomas disease. D/ / Horacio Mg DO / Horacio Mg DO Interpreting Provider: Horacio Mg DO Consult Discharge Plan - Plan Referrals: Arslan Victoria, MACHINE HELPER [Primary Care Provider] - (1) Pneumonia Qualifiers: Pneumonia type: due to unspecified organism Laterality: bilateral Lung location: unspecified part of lung Qualified Code(s): J18.9 - Pneumonia, unspecified organism (3) CHF (congestive heart failure) Qualifiers: Heart failure type: diastolic Heart failure chronicity: chronic Qualified Code(s): I50.32 - Chronic diastolic (congestive) heart failure (6) Afib Qualifiers: Atrial fibrillation type: chronic Qualified Code(s): I48.2 - Chronic atrial fibrillation (7) CAD (coronary artery disease) Qualifiers: Coronary Disease-Associated Artery/Lesion type: [place] artery [place] vs. transplanted heart: [place] heart Associated angina: with stable angina Qualified Code(s): I25.118 - Atherosclerotic heart disease of [place] coronary artery with other forms of angina pectoris (8) COPD (chronic obstructive pulmonary disease) Qualifiers: COPD type: unspecified COPD Qualified Code(s): J44.9 - Chronic obstructive pulmonary disease, unspecified
[2019-02-24] MEDS ORDERED: cefTRIAXone 1,000 MG in Water for inj. (sterile) 20 ML 10 ML IVP SCH (09:00)
[2019-02-24] MEDS ORDERED: METHIMAZOLE PO SCH (09:00)
[2019-02-24] MEDS ORDERED: Bumetanide 1 MG TABLET PO SCH (09:00)
[2019-02-24] MEDS ORDERED: Ipratropium/Albuterol Neb 3 ML IH PRN (11:08)
[2019-02-24] MEDS ORDERED: Benzonatate 100 MG CAPSULE PO PRN (14:09)
[2019-02-24] MEDS: Ipratropium/Albuterol Neb 3 ML IH SCH ×3 (15:27→21:57)
[2019-02-24] MEDS ORDERED: Azithromycin 250 MG in D5% in Water 250 ML IVPB SCH (16:00)
[2019-02-24] MEDS: methylPREDNISolone 125 MG/2 ML VIAL IVP SCH (17:34)
--- NOTE | 2019-02-24 20:34 | Electrocardiograph Report ---
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
[2019-02-24 23:01] LABS: ABG Base Excess 0 mEq/L (-2 to 3); ABG HCO3 24 mEq/L (21-27); ABG Oxygen Saturation 99 % (95-98); ABG PCO2 39 mmHg (35-45); ABG PO2 116 mmHg (85-104); ABG TCO2 26 mEq/L (20-26)
--- NOTE | 2019-02-24 23:26 | Event Note ---
Date of Encounter: 02/24/19 Time of Encounter: 22:27 Notified by nurse of patient becoming difficult to arouse. Assessed patient at bedside, remains oriented x3 but falls back to sleep quickly and states she doesn't feel good but is unable to tell me what is wrong, denies any pain or increased shortness of breath. Vitals stable. Recently received lyrica and xanax tonight. Blood sugar elevated but read 357 in one arm and 464 in other. Stat labs ordered. Nurse instructed to do hourly vital and neuro checks and notify of any changes. Discussed with Dr Blair.
[2019-02-24 23:53] LABS: Alanine Aminotransferase 15 Units/L (7-52); Albumin 3.1 g/dL (3.5-5.7); Albumin/Globulin Ratio 0.8 (1.1-2.2); Alkaline Phosphatase 336 Units/L (34-104); Aspartate Amino Transferase 18 Units/L (13-39); BUN/Creatinine Ratio 56 (6-26); Bilirubin,Total 0.7 mg/dL (0.3-1.0); Blood Urea Nitrogen 23 mg/dL (8-23); Calcium 8.6 mg/dL (8.6-10.3); Carbon Dioxide 23 mEq/L (23-29); Chloride 106 mEq/L (98-107); Globulin 4.1 g/dL (2.4-3.5); Glucose 406 mg/dL (70-105); Osmolality,Calculated 303 (280-300); Potassium 3.9 mEq/L (3.5-5.1); Sodium 136 mEq/L (136-145); Total Protein 7.2 g/dL (6.4-8.9); eGFR For Non-African Americans > 60 (> 60)
[2019-02-24 23:55] LABS: Hematocrit 34.6 % (35.3-44.9); Hemoglobin 10.7 g/dL (11.5-15.4); Immature Granulocytes % 0.3 % (0-4); Lymphocytes # 0.5 K/mcL (0.6-4.6); Lymphocytes % 11.5 %; Mean Corpuscular HGB Conc 30.9 g/dL (31.6-35.5); Mean Corpuscular Hemoglobin 27.1 pg (28.0-33.3); Mean Corpuscular Volume 87.6 fL (83.0-100.0); Mean Platelet Volume 12.1 fL (9.4-12.4); Monocytes # 0.1 K/mcL (0.0-1.3); Monocytes % 1.8 %; Neutrophils # 3.5 K/mcL (1.6-8.9); Platelet Count 146 K/mcL (140-400); Red Blood Count 3.95 M/mcL (3.82-4.97); Red Cell Distribution Width 14.6 % (11.5-14.5); Segmented Neutrophils % 86.4 %
[2019-02-25] MEDS ORDERED: Dextrose Gel 15 GM/37.5 ML TUBE PO PRN ×2
[2019-02-25] MEDS ORDERED: D5% in Water 1,000 ML IVC PRN
[2019-02-25] MEDS ORDERED: *HR* Dextrose 50 % in Water (Syg) 50 ML SYRINGE IVP PRN
[2019-02-25] MEDS ORDERED: Insulin LISPRO 300 UNITS/3 ML VIAL SQ SCH (00:15)
[2019-02-25 00:32] LABS: Platelet Estimate Normal (Normal)
[2019-02-25] MEDS ORDERED: Insulin LISPRO 300 UNITS/3 ML VIAL SQ ONE (03:22)
[2019-02-25] MEDS: Ipratropium/Albuterol Neb 3 ML IH SCH ×2 (03:26→10:54)
[2019-02-25] MEDS: methylPREDNISolone 125 MG/2 ML VIAL IVP SCH ×2 (04:51→17:16)
[2019-02-25] MEDS: Insulin LISPRO 300 UNITS/3 ML VIAL SQ SCH ×4 (07:20→21:22)
[2019-02-25] MEDS: Lactobacillus 1 EACH CAP.SPRINK PO SCH (07:21)
[2019-02-25] MEDS: Aspirin 325 MG TABLET PO SCH (07:21)
[2019-02-25] MEDS: Isosorbide MONOnitrate (24 HR) 30 MG TAB.ER.24H PO SCH (07:21)
[2019-02-25] MEDS: Apixaban 5 MG TABLET PO SCH ×2 (07:21→21:17)
[2019-02-25] MEDS: Furosemide 20 MG TABLET PO SCH ×2 (07:21→17:16)
--- NOTE | 2019-02-25 07:37 | Internal Med Progress Note ---
Hospitalist Progress Note - Encounter Date of Encounter: 02/25/19 Time of Encounter: 07:35 - Subjective Interval History: Patient seen and examined this morning at bedside. overnight events noted. No completely alert and oriented. Denies new complaints. Breathing slightly improved than yesterday. Remains afebrile. - Exam Vitals: Temp Pulse Resp BP Pulse Ox 97.6 F 98 18 113/68 99 02/24/19 23:01 02/25/19 01:03 02/25/19 03:26 02/25/19 01:03 02/25/19 03:26 Exam: Constitutional: No Apparent Distress. looks old for age Respiratory : Coarse breath sounds, b/l rhonchi and wheezing Cardiovascular : RRR, +S1, +S2. no murmur, gallop, rubs. CABG scar with wire present. GI/Abdominal : Soft, Non-tender, no peritoneal signs. Musculoskeletal: no deformity noted. trace edema, no calf tenderness. Neurological: AO X3, CN II-XII grossly intact, grossly normal motor and sensory exam. Skin: No skin rash, lesions or ulcers noted. - Assessment and Plan (1) Pneumonia Current Visit: Yes Status: Acute (2) Acute and chronic respiratory failure with hypoxia Current Visit: Yes Status: Acute (3) CHF (congestive heart failure) Current Visit: Yes Status: Acute (4) Alkaline phosphatase elevation Current Visit: No Status: Acute (5) Hyperthyroidism Current Visit: No Status: Acute (6) Afib Current Visit: No Status: Chronic (7) CAD (coronary artery disease) Current Visit: No Status: Chronic (8) COPD (chronic obstructive pulmonary disease) Current Visit: No Status: Chronic (9) Chronic respiratory failure with hypoxia Current Visit: No Status: Chronic - Summary of Assessment and Plan Summary of Assessment and Plan: Pneumonia - Likely viral. RIP positive for RSV - f/u blood culture and sputum culture. Urine antigens negative. stop azithromycin. COPD exacerbation - likely cause by RSV pneumonia - c/w tapered steroids. c/w xopenex - Does not appear to be on any home inhalers. Start symbicort. Acute and chronic respiratory failure with hypoxia - likely related to pneumonia and COPD exacerbation Diastolic CHF - BNP elevated but not in exacerbation - c/w home bumex. Does not appear to be on lasix at home. Will stop it. Alkaline phosphatase elevation - Elevated since 2017. Likely also has been worked including GI evaluation with MRCP with negative CBD stone. Has had cholecystectomy - CT abdomen done was unremarkable - hold further testing for now. Could be followed outpatient. Hyperthyroidism - Taking methimazole 30 BID after confirmation with pharmacy. will continue the same - To get and finish radiation therapy outpatient. Afib - rate controlled. Currently confirming her medication. - c/w eliquis for now. appears had bradycardia from beta delfino on last admission. Unclear whether on digoxin. Will hold for now. CAD - Does not appear to be Betablocker due to bradycardia - c/w aspirin, statin Chronic respiratory failure with hypoxia - from copd. c/w oxygen as needed - Time Spent with Patient Total time spent is greater than 50% in coordination of care (as documented) at patient's floor/unit and/or counseling patient: Internal Medicine: Result - Labs CBC & Chem 7: 02/24/19 23:10 02/24/19 23:10 Labs: Short CBC 02/24/19 Range/Units 23:10 WBC 4.0 L (4.3-11.1) K/mcL Hgb 10.7 L (11.5-15.4) g/dL Hct 34.6 L (35.3-44.9) % Plt Count 146 (140-400) K/mcL Neutrophils # 3.5 (1.6-8.9) K/mcL BMP 02/24/19 23:10 Sodium 136 Potassium 3.9 Chloride 106 Carbon Dioxide 23 BUN 23 Creatinine 0.41 L Glucose 406 H Calcium 8.6 Liver Function 02/24/19 Range/Units 23:10 Total Bilirubin 0.7 (0.3-1.0) mg/dL AST 18 (13-39) Units/L ALT 15 (7-52) Units/L Alkaline Phosphatase 336 H (34-104) Units/L Albumin 3.1 L (3.5-5.7) g/dL - ABG Interpretation ABG results: ABG ABG pH 7.40 pH Units (7.32-7.45) 02/24/19 22:57 ABG pCO2 39 mmHg (35-45) 02/24/19 22:57 ABG pO2 116 mmHg (85-104) H 02/24/19 22:57 ABG O2 Saturation 99 % (95-98) H 02/24/19 22:57 Consult Discharge Plan - Plan Referrals: Arslan Victoria, GUEST RELATIONS MANAGER [Primary Care Provider] - ____ (1) Pneumonia Qualifiers: Pneumonia type: due to unspecified organism Laterality: bilateral Lung location: unspecified part of lung Qualified Code(s): J18.9 - Pneumonia, unspecified organism (3) CHF (congestive heart failure) Qualifiers: Heart failure type: diastolic Heart failure chronicity: chronic Qualified Code(s): I50.32 - Chronic diastolic (congestive) heart failure (6) Afib Qualifiers: Atrial fibrillation type: chronic Qualified Code(s): I48.2 - Chronic atrial fibrillation (7) CAD (coronary artery disease) Qualifiers: Coronary Disease-Associated Artery/Lesion type: [place] artery [place] vs. transplanted heart: [place] heart Associated angina: with stable angina Qualified Code(s): I25.118 - Atherosclerotic heart disease of [place] coronary artery with other forms of angina pectoris (8) COPD (chronic obstructive pulmonary disease) Qualifiers: COPD type: unspecified COPD Qualified Code(s): J44.9 - Chronic obstructive pulmonary disease, unspecified
[2019-02-25] MEDS ORDERED: *HR* Metoprolol 5 MG/5 ML VIAL IVP ONE ×4 (13:37→13:50)
[2019-02-25] MEDS ORDERED: Diltiazem CD (24hr) 180 MG CAPSULE PO SCH (14:00)
[2019-02-25] MEDS: Diltiazem CD (24hr) 180 MG CAPSULE PO SCH (17:16)
[2019-02-25] MEDS ORDERED: *HR* Promethazine 25 MG/ML VIAL IM PRN (18:17)
[2019-02-25] MEDS ORDERED: ALPRAZolam 0.5 MG TABLET PO PRN (18:17)
[2019-02-25] MEDS ORDERED: Levalbuterol Neb 1.25 MG/3 ML ONE (19:46)
[2019-02-25] MEDS: Levalbuterol Neb 1.25 MG/3 ML IH SCH (19:49)
[2019-02-25] MEDS: Budesonide/Formoterol 160/4.5 1 PUFF INH IH SCH (19:49)
[2019-02-25] MEDS: methIMAzole 5 MG TABLET PO SCH (21:17)
[2019-02-25] MEDS: Insulin DETEMIR 100 UNIT/ML X5UNITS SQ SCH (21:20)
[2019-02-25] MEDS: Acetaminophen 325 MG TABLET PO PRN (23:02)
[2019-02-26] MEDS: methylPREDNISolone 125 MG/2 ML VIAL IVP SCH ×2 (05:33→18:36)
[2019-02-26] MEDS: Budesonide/Formoterol 160/4.5 1 PUFF INH IH SCH ×2 (07:10→22:15)
[2019-02-26] MEDS: Levalbuterol Neb 1.25 MG/3 ML IH SCH ×2 (07:11→22:15)
[2019-02-26] MEDS: methIMAzole 5 MG TABLET PO SCH ×2 (11:02→22:25)
[2019-02-26] MEDS: Isosorbide MONOnitrate (24 HR) 30 MG TAB.ER.24H PO SCH (11:02)
[2019-02-26] MEDS: Insulin LISPRO 300 UNITS/3 ML VIAL SQ SCH ×4 (11:02→22:25)
[2019-02-26] MEDS: Lactobacillus 1 EACH CAP.SPRINK PO SCH (11:02)
[2019-02-26] MEDS: Aspirin Enteric Coated 81 MG Tablet PO SCH (11:03)
[2019-02-26] MEDS: Diltiazem CD (24hr) 180 MG CAPSULE PO SCH (11:03)
[2019-02-26] MEDS: Apixaban 5 MG TABLET PO SCH ×2 (11:03→22:25)
[2019-02-26] MEDS ORDERED: *HR* Promethazine 25 MG/ML VIAL IVP PRN (11:27)
--- NOTE | 2019-02-26 15:56 | Internal Med Progress Note ---
Hospitalist Progress Note - Encounter Date of Encounter: 02/26/19 Time of Encounter: 15:53 - Subjective Interval History: Sitting on bed, still slight short of breath while talking. Have the cough spells intermittently. Oxygen by nasal cannula. Denies fever chills nausea vomiting headache dizziness chest pain abdominal pain diarrhea - Exam Vitals: Temp Pulse Resp BP Pulse Ox 97.9 F 85 16 165/76 97 02/26/19 12:13 02/26/19 12:13 02/26/19 12:13 02/26/19 12:13 02/26/19 12:13 Exam: Constitutional: No Apparent Distress. Oxygen by nasal cannula Respiratory : Coarse breath sounds, b/l rhonchi and wheezing Cardiovascular : RRR, +S1, +S2. no murmur GI/Abdominal : Soft, Non-tender, no peritoneal signs. Musculoskeletal: no deformity noted. trace edema, no calf tenderness. Neurological: AO X3, CN II-XII grossly intact, grossly normal motor and sensory exam. Skin: No skin rash, lesions or ulcers noted. - Assessment and Plan (1) Pneumonia Current Visit: Yes Status: Acute Assessment and Plan: SOB likely from CAP-unclear organism Will obtain respiratory infectious panel-RSV positive, Legionella, strep pneumoniae -negative blood culture, sputum culture-no growth yet Continue ceftriaxone and azithromycin given history cdiff. Will broaden if not responding clinically CT angiogram-a small to moderate right pleural effusion, negative PE. Patchy area of consolidation/ground glass opacity bilaterally lower lobe, right middle lobe and left upper lobe. Stable mediastinal lymphadenopathy (2) COPD (chronic obstructive pulmonary disease) Current Visit: No Status: Chronic Assessment and Plan: Dotson have some rhonchi b/l possibly from pneumonia Will keep on supplemental oxygen and duonebs. Continue his steroid and azithromycin. (3) CAD (coronary artery disease) Current Visit: No Status: Chronic Assessment and Plan: Stable. Continue home medications . (4) Chronic respiratory failure with hypoxia Current Visit: No Status: Chronic (5) Afib Current Visit: No Status: Chronic Assessment and Plan: rate controlled now after restarting home dose diltiazem. Continue home medication including Diltiazem and eliquis (6) Alkaline phosphatase elevation Current Visit: No Status: Acute Assessment and Plan: Has been elevated since 2017. Likely also has been worked including GI evaluati on with MRCP with negative CBD stone. Has had cholecystectomy Had CT abdomen done was unremarkable Will review previous charts in details about other workup hold further testing for now (7) Hyperthyroidism Current Visit: No Status: Acute Assessment and Plan: Continue home medicine (8) CHF (congestive heart failure) Current Visit: Yes Status: Acute Assessment and Plan: BNP elevated but Not in exacerbation based on clinical assessment. without fluid overload Will confirm home diuretics dose before starting both lasix and bumex (9) Acute and chronic respiratory failure with hypoxia Current Visit: Yes Status: Acute Assessment and Plan: likely related to pneumia on base line COPD (10) DVT prophylaxis Current Visit: Yes Status: Acute Assessment and Plan: Eliquis - Time Spent with Patient Total time spent is greater than 50% in coordination of care (as documented) at patient's floor/unit and/or counseling patient: 25 - 35 minutes Internal Medicine: Result - Labs CBC & Chem 7: 02/24/19 23:10 02/24/19 23:10 - ABG Interpretation ABG results: ABG ABG pH 7.40 pH Units (7.32-7.45) 02/24/19 22:57 ABG pCO2 39 mmHg (35-45) 02/24/19 22:57 ABG pO2 116 mmHg (85-104) H 02/24/19 22:57 ABG O2 Saturation 99 % (95-98) H 02/24/19 22:57 Consult Discharge Plan - Plan Referrals: Arslan Victoria, WAX BLENDER [Primary Care Provider] - (1) Pneumonia Qualifiers: Pneumonia type: due to unspecified organism Laterality: bilateral Lung location: unspecified part of lung Qualified Code(s): J18.9 - Pneumonia, unspecified organism (2) COPD (chronic obstructive pulmonary disease) Qualifiers: COPD type: unspecified COPD Qualified Code(s): J44.9 - Chronic obstructive pulmonary disease, unspecified (3) CAD (coronary artery disease) Qualifiers: Coronary Disease-Associated Artery/Lesion type: [place] artery [place] vs. transplanted heart: [place] heart Associated angina: with stable angina Quali fied Code(s): I25.118 - Atherosclerotic heart disease of [place] coronary artery with other forms of angina pectoris (5) Afib Qualifiers: Atrial fibrillation type: chronic Qualified Code(s): I48.2 - Chronic atrial fibrillation (8) CHF (congestive heart failure) Qualifiers: Heart failure type: diastolic Heart failure chronicity: chronic Qualified Code(s): I50.32 - Chronic diastolic (congestive) heart failure
[2019-02-26] MEDS ORDERED: Nitroglycerin 0.4 MG TAB.SUBL SL PRN (16:08)
[2019-02-26] MEDS: GuaiFENesin/Codeine Oral Soln 5 ML UDC PO PRN (22:36)
[2019-02-26] MEDS: Insulin DETEMIR 100 UNIT/ML X5UNITS SQ SCH (22:37)
[2019-02-27] MEDS: methylPREDNISolone 125 MG/2 ML VIAL IVP SCH (05:42)
[2019-02-27] MEDS: Budesonide/Formoterol 160/4.5 1 PUFF INH IH SCH ×2 (07:58→21:29)
[2019-02-27] MEDS: Levalbuterol Neb 1.25 MG/3 ML IH SCH ×2 (07:58→21:29)
[2019-02-27] MEDS: Insulin LISPRO 300 UNITS/3 ML VIAL SQ SCH ×4 (08:00→20:30)
--- NOTE | 2019-02-27 08:50 | Electrocardiograph Report ---
[place] [id number] Test Date: 2019-02-25 Pat Name: Didier Mcdaniels Department: 115 Room: 3A Gender: F Note Specialist: : [id number] Requested By: Yesi Villalpando Order Number: [id number] Reading MD: Chan Pierce Measurements Intervals [place] Rate: 159 P: [place]: 0 QRS: 28 QRSD: 93 T: 180 QT: 253 QTc: 342 Interpretive Statements Atrial fibrillation with rapid ventricular response NONSPECIFIC ST & T-WAVE ABNORMALITY Electronically Signed On 02-27-2019 8:48:45 EDT by Chan Pierce
[2019-02-27] MEDS: Aspirin Enteric Coated 81 MG Tablet PO SCH (10:28)
[2019-02-27] MEDS: Isosorbide MONOnitrate (24 HR) 30 MG TAB.ER.24H PO SCH (10:28)
[2019-02-27] MEDS: Diltiazem CD (24hr) 180 MG CAPSULE PO SCH (10:28)
[2019-02-27] MEDS: methIMAzole 5 MG TABLET PO SCH ×2 (10:29→20:31)
[2019-02-27] MEDS: Lactobacillus 1 EACH CAP.SPRINK PO SCH (10:29)
[2019-02-27] MEDS: Apixaban 5 MG TABLET PO SCH ×2 (10:29→20:31)
[2019-02-27 11:19] LABS: Basophils % 0.2 %; Hematocrit 33.8 % (35.3-44.9); Hemoglobin 10.6 g/dL (11.5-15.4); Immature Granulocytes % 1.2 % (0-4); Lymphocytes # 0.4 K/mcL (0.6-4.6); Lymphocytes % 5.8 %; Mean Corpuscular HGB Conc 31.4 g/dL (31.6-35.5); Mean Corpuscular Hemoglobin 26.8 pg (28.0-33.3); Mean Corpuscular Volume 85.6 fL (83.0-100.0); Mean Platelet Volume 11.7 fL (9.4-12.4); Monocytes # 0.2 K/mcL (0.0-1.3); Neutrophils # 5.4 K/mcL (1.6-8.9); Platelet Count 202 K/mcL (140-400); Red Blood Count 3.95 M/mcL (3.82-4.97); Red Cell Distribution Width 14.6 % (11.5-14.5); Segmented Neutrophils % 89.8 %
[2019-02-27 11:27] LABS: BUN/Creatinine Ratio 75 (6-26); Blood Urea Nitrogen 27 mg/dL (8-23); Calcium 9.1 mg/dL (8.6-10.3); Carbon Dioxide 24 mEq/L (23-29); Chloride 101 mEq/L (98-107); Glucose 297 mg/dL (70-105); Osmolality,Calculated 290 (280-300); Potassium 4.8 mEq/L (3.5-5.1); Sodium 132 mEq/L (136-145); eGFR For Non-African Americans > 60 (> 60)
[2019-02-27 11:40] LABS: Estimated Average Glucose 120 mg/dl; Hemoglobin A1C 5.8 %
--- NOTE | 2019-02-27 12:26 | Internal Med Progress Note ---
Hospitalist Progress Note - Encounter Date of Encounter: 02/27/19 Time of Encounter: 12:23 - Subjective Interval History: Patient is still has cough, generalized weakness and fatigue. Oxygen by nasal cannula 2 L. Per minute the lab with better control and blood glucose level. A1c 5.8. Still complain of some shortness of breath with cough. She denies fever chills nausea vomiting headache dizziness chest pain abdominal pain diarrhea. - Exam Vitals: Temp Pulse Resp BP Pulse Ox 97.6 F 67 16 144/73 99 02/27/19 06:30 02/27/19 06:30 02/27/19 07:58 02/27/19 06:30 02/27/19 07:58 Exam: Constitutional: No Apparent Distress. Pronator Oxygen by nasal cannula Respiratory : Coarse breath sounds, b/l rhonchi and wheezing Cardiovascular : RRR, +S1, +S2. no murmur GI/Abdominal : Soft, Non-tender, no peritoneal signs. Musculoskeletal: no deformity noted. trace edema, no calf tenderness. Gait-r efused to walk as feeling very weak Neurological: AO X3, CN II-XII grossly intact, grossly normal motor and sensory exam. Skin: No skin rash, lesions or ulcers noted. - Assessment and Plan (1) Pneumonia Current Visit: Yes Status: Acute Assessment and Plan: SOB likely from CAP-unclear organism respiratory infectious panel-RSV positive, Legionella, strep pneumoniae -negative blood culture, sputum culture-no growth yet Continue ceftriaxone and azithromycin given history cdiff- stopped. CT angiogram-a small to moderate right pleural effusion, negative PE. Patchy area of consolidation/ground glass opacity bilaterally lower lobe, right middle lobe and left upper lobe. Stable mediastinal lymphadenopathy Patient is still symptomatic with generalized weakness-consulted PT / OT. Consulted respiratory therapist. Ordered spirometry. Patient is almost back to home oxygen requirement 2 L. Possible discharge in 1 or 2 days after getting adequate symptomatic relief. Patient lives alone in therefore will go home on home health care. green chain worker on board. We will follow recommendation of physiotherapist as well (2) COPD (chronic obstructive pulmonary disease) Current Visit: No Status: Chronic Assessment and Plan: Continue supplemental oxygen, DuoNeb. Will stop IV steroid and start prednisone 60 mg oral daily. (3) CAD (coronary artery disease) Current Visit: No Status: Chronic Assessment and Plan: Stable. Continue home medications . (4) Chronic respiratory failure with hypoxia Current Visit: No Status: Chronic (5) Afib Current Visit: No Status: Chronic Assessment and Plan: rate controlled now after restarting home dose diltiazem. Patient states that she was was taking high dose of digoxin at home but no digoxin was given during hospital stay and her heart rate has been controlled. Plan to discharge patient on lower dose of digoxin and advised to follow cardio logist on OPD basis Continue home medication including Diltiazem and eliquis (6) Alkaline phosphatase elevation Current Visit: No Status: Acute Assessment and Plan: Has been elevated since 2017. Likely also has been worked including GI evaluation with MRCP with negative CBD stone. Has had cholecystectomy Had CT abdomen done was unremarkable. stable. no further testing for now. Follow-up with PCP on OPD basis (7) Hyperthyroidism Current Visit: No Status: Acute Assessment and Plan: Continue home medicine (8) CHF (congestive heart failure) Current Visit: Yes Status: Acute Assessment and Plan: BNP elevated but Not in exacerbation based on clinical assessment. without fluid overload (9) Acute and chronic respiratory failure with hypoxia Current Visit: Yes Status: Acute Assessment and Plan: likely related to pneumia on base line COPD (10) DVT prophylaxis Current Visit: Yes Status: Acute Assessment and Plan: Eliquis (11) Hyperglycemia Current Visit: Yes Status: Acute Assessment and Plan: a1c 5.8. High blood glucose level secondary to a steroid. Now better controlled on Levemir 20 oh unit daily. Plan to decrease his steroid dose that will help and reducing blood glucose level, decreasing Levemir 10 units daily. He patient is on not smart enough to manage blood glucose level frequently even diabetes education has been given therefore will try to keep simpler regimen of insulin at the time of discharge. She does not feel much comfortable handling sliding scale insulin. Therefore will plan to send on lower dose of Levemir and follow with PCP or her mold preparer on OPD basis for further glucose monitoring. - Time Spent with Patient Total time spent is greater than 50% in coordination of care (as documented) at patient's floor/unit and/or counseling patient: 25 - 35 minutes Plan of Care Discussed with: patient Internal Medicine: Result - Labs CBC & Chem 7: 02/27/19 10:38 02/27/19 10:38 Labs: Short CBC 02/27/19 Range/Units 10:38 WBC 6.0 (4.3-11.1) K/mcL Hgb 10.6 L (11.5-15.4) g/dL Hct 33.8 L (35.3-44.9) % Plt Count 202 (140-400) K/mcL Neutrophils # 5.4 (1.6-8.9) K/mcL BMP 02/27/19 10:38 Sodium 132 L Potassium 4.8 Chloride 101 Carbon Dioxide 24 BUN 27 H Creatinine 0.36 L Glucose 297 H Calcium 9.1 - ABG Interpretation ABG results: ABG ABG pH 7.40 pH Units (7.32-7.45) 02/24/19 22:57 ABG pCO2 39 mmHg (35-45) 02/24/19 22:57 ABG pO2 116 mmHg (85-104) H 02/24/19 22:57 ABG O2 Saturation 99 % (95-98) H 02/24/19 22:57 Consult Discharge Plan - Plan Referrals: Arslan Victoria, LEAD CUSTOMER SERVICE REPRESENTATIVE [Primary Care Provider] - (1) Pneumonia Qualifiers: Pneumonia type: due to unspecified organism Laterality: bilateral Lung location: unspecified part of lung Qualified Code(s): J18.9 - Pneumonia, unspecified organism (2) COPD (chronic obstructive pulmonary disease) Qualifiers: COPD type: unspecified COPD Qualified Code(s): J44.9 - Chronic obstructive pulmonary disease, unspecified (3) CAD (coronary artery disease) Qualifiers: Coronary Disease-Associated Artery/Lesion type: [place] artery [place] vs. transplanted heart: [place] heart Associated angina: with stable angina Qualified Code(s): I25.118 - Atherosclerotic heart disease of [place] coronary artery with other forms of angina pectoris (5) Afib Qualifiers: Atrial fibrillation type: chronic Qualified Code(s): I48.2 - Chronic atrial fibrillation (8) CHF (congestive heart failure) Qualifiers: Heart failure type: diastolic Heart failure chronicity: chronic Qualified Code(s): I50.32 - Chronic diastolic (congestive) heart failure
[2019-02-27] MEDS: GuaiFENesin/Codeine Oral Soln 5 ML UDC PO PRN (13:00)
[2019-02-27] MEDS: Acetaminophen 325 MG TABLET PO PRN (20:37)
[2019-02-27] MEDS ORDERED: Insulin DETEMIR 100 UNIT/ML X5UNITS SQ SCH (21:00)
[2019-02-28] MEDS: Acetaminophen 325 MG TABLET PO PRN ×2 (01:41→16:24)
[2019-02-28] MEDS: GuaiFENesin/Codeine Oral Soln 5 ML UDC PO PRN (01:41)
[2019-02-28 05:07] LABS: Basophils % 0.1 %; Hematocrit 34.1 % (35.3-44.9); Hemoglobin 10.8 g/dL (11.5-15.4); Immature Granulocytes % 0.8 % (0-4); Lymphocytes # 0.8 K/mcL (0.6-4.6); Lymphocytes % 7.4 %; Mean Corpuscular HGB Conc 31.7 g/dL (31.6-35.5); Mean Corpuscular Volume 85.3 fL (83.0-100.0); Mean Platelet Volume 11.8 fL (9.4-12.4); Monocytes % 9.9 %; Neutrophils # 8.6 K/mcL (1.6-8.9); Platelet Count 251 K/mcL (140-400); Red Cell Distribution Width 14.7 % (11.5-14.5); Segmented Neutrophils % 81.8 %
[2019-02-28 05:23] LABS: BUN/Creatinine Ratio 84 (6-26); Blood Urea Nitrogen 27 mg/dL (8-23); Calcium 8.9 mg/dL (8.6-10.3); Carbon Dioxide 25 mEq/L (23-29); Chloride 101 mEq/L (98-107); Glucose 95 mg/dL (70-105); Osmolality,Calculated 279 (280-300); Potassium 4.9 mEq/L (3.5-5.1); Sodium 132 mEq/L (136-145); eGFR For Non-African Americans > 60 (> 60)
[2019-02-28] MEDS: Budesonide/Formoterol 160/4.5 1 PUFF INH IH SCH ×2 (10:05→20:52)
[2019-02-28] MEDS: Levalbuterol Neb 1.25 MG/3 ML IH SCH ×2 (10:05→20:52)
[2019-02-28] MEDS: Insulin LISPRO 300 UNITS/3 ML VIAL SQ SCH ×4 (10:42→20:31)
[2019-02-28] MEDS: methIMAzole 5 MG TABLET PO SCH ×2 (10:52→20:30)
[2019-02-28] MEDS: Lactobacillus 1 EACH CAP.SPRINK PO SCH (10:53)
[2019-02-28] MEDS: predniSONE 20 MG TABLET PO SCH (10:53)
[2019-02-28] MEDS: Aspirin Enteric Coated 81 MG Tablet PO SCH (10:53)
[2019-02-28] MEDS: Apixaban 5 MG TABLET PO SCH ×2 (10:53→20:31)
[2019-02-28] MEDS: Diltiazem CD (24hr) 180 MG CAPSULE PO SCH (10:53)
[2019-02-28] MEDS: Isosorbide MONOnitrate (24 HR) 30 MG TAB.ER.24H PO SCH (10:53)
--- NOTE | 2019-02-28 12:07 | Discharge Summary ---
- NOTES TO OUTPATIENT PROVIDER Notes to Outpatient Provider: Follow-up with primary care physician in 3-5 days. PT with home health care. Continue nebulizer as advised. Follow with cardiology in 1-2 weeks to discuss about digoxin. Keep follow-up appointment with endocrinology within 1-2 weeks. Fall precaution Orders not resulted at time of discharge: Pending orders 02/23/19 14:22 Culture,Blood [BC] Stat 02/27/19 12:19 Bedside Spirometry Evaluation [EVAL] Routine Date of Encounter: 03/01/19 Time of Encounter: 13:50 - Discharge Diagnosis (1) Pneumonia Priority: Primary Status: Acute Assessment and Plan: SOB likely from CAP-unclear organism respiratory infectious panel-RSV positive, Legionella, strep pneumoniae -negative blood culture, sputum culture-no growth yet Continue ceftriaxone and azithromycin given history cdiff- stopped. CT angiogram-a small to moderate right pleural effusion, negative PE. Patchy area of consolidation/ground glass opacity bilaterally lower lobe, right middle lobe and left upper lobe. Stable mediastinal lymphadenopathy Patient is improving and respiratory symptoms but is still had generalized weakness therefore PTOT consulted and they advise home health care services for PT. Patient is ambulating but limited due to weakness. Patient will be discharged on tapering dose of prednisone 60 mg daily for total 5 days then 40 mg daily next 5 days and then 20 mg daily for 5 days along with nebulizer continuation every 4 hour as needed. Patient needs to follow primary care physician within one week. Qualifiers: Pneumonia type: due to unspecified organism Laterality: bilateral Lung location: unspecified part of lung Qualified Code(s): J18.9 - Pneumonia, unspecified organism (2) COPD (chronic obstructive pulmonary disease) Priority: Primary Status: Chronic Assessment and Plan: Continue supplemental oxygen, DuoNeb. Tapering steroid Qualifiers: COPD type: unspecified COPD Qualified Code(s): J44.9 - Chronic obstructive pulmonary disease, unspecified (3) CAD (coronary artery disease) Priority: Secondary Status: Chronic Assessment and Plan: Stable. Continue home medications . Qualifiers: Coronary Disease-Associated Artery/Lesion type: [place] artery [place] vs. transplanted heart: [place] heart Associated angina: with stable angina Qualified Code(s): I25.118 - Atherosclerotic heart disease of [place] coronary artery with other forms of angina pectoris (4) Chronic respiratory failure with hypoxia Priority: Secondary Status: Chronic (5) Afib Priority: Primary Status: Chronic Assessment and Plan: rate controlled now after restarting home dose diltiazem. Patient states that she was was taking high dose of digoxin at home but no digoxin was given during hospital stay and her heart rate has been controlled. At the time of discharge her heart rate in higher 60s. Digoxin was not plan to give at the time of discharge but patient needs to follow with cardiology to consider restarting if needed. There was fear that patient will develop bradycardia after restarting digoxin as already well controlled heart rate in 60s on diltiazem alone . Continue Eliquis. Qualifiers: Atrial fibrillation type: chronic Qualified Code(s): I48.2 - Chronic atrial fibrillation (6) Alkaline phosphatase elevation Priority: Secondary Status: Acute Assessment and Plan: Has been elevated since 2017. Likely also has been worked including GI evaluation with MRCP with negative CBD stone. Has had cholecystectomy Had CT abdomen done was unremarkable. stable. no further testing for now. Follow-up with PCP on OPD basis (7) Hyperthyroidism Priority: Secondary Status: Acute Assessment and Plan: Continue home medicine. Keep follow-up appointment with her vice president of talent acquisition (8) CHF (congestive heart failure) Priority: Secondary Status: Acute Assessment and Plan: BNP elevated but Not in exacerbation based on clinical assessment. without fluid overload Qualifiers: Heart failure type: diastolic Heart failure chronicity: chronic Qualified Code(s): I50.32 - Chronic diastolic (congestive) heart failure (9) Acute and chronic respiratory failure with hypoxia Priority: Primary Status: Acute Assessment and Plan: likely related to pneumia as mentioned above (10) Hyperglycemia Priority: Primary Status: Acute Assessment and Plan: a1c 5.8. High blood glucose level secondary to a steroid. After decreasing his steroid her blood glucose level is well controlled therefore decided to stop long-acting insulin. Patient needs to follow with primary care physician about further monitoring of blood glucose level. (11) Abdominal pain Priority: Primary Status: Acute Assessment and Plan: Sudden onset of abdominal pain. Patient has been complaining slight abdominal muscle pain due to cough therefore cough medicine was given before. But eventually she complained of severe abdominal pain while preparing for the discharge on 02/28/2019 therefore discharge was canceled. Instead amylase lipase ordered that has been within normal limit. CT abdomen and pelvis with no acute finding. Patient did not feel comfortable to go home on the same day and wanted to stay 1 more night therefore patient was kept one more day. Today patient feeling a lot better and wants to go home. Will discharge patient on Pepcid 20 mg by mouth twice a day for 2 weeks especially while on steroid Qualifiers: Abdominal location: upper abdomen, unspecified Qualified Code(s): R10.10 - Upper abdominal pain, unspecified Hospital course: Ms. Mcdaniels is a 63 year old female patient got admitted for bilateral while pneumonia due to RSV. Patient also developed A. fib with RVR while not on home medication. Please see details in diagnosis section of discharge summary. At the time of discharge patient is clinically and hemodynamically stable . Able to ambulate but very weak. Back to baseline home oxygen requirement 2 L by nasal cannula. Fall precaution. Advised to keep all the mentioned follow-up appointment Discharge discussed with: patient, nurse Time spent discussing smoking cessation with patient: 3 to 10 minutes - Time Spent with Patient Total time spent providing and/or coordinating discharge services: - Discharge Medications Prescriptions: New Albuterol Neb [Proventil Neb] 2.5 mg IH Q4HR #60 vial.neb Budesonide/Formoterol 160/4.5 [Symbicort 160/4.5] 2 puff IH BIDR #1 inh GuaiFENesin/Codeine [ROBITUSSIN w/CODEINE] 5 ml PO Q12H PRN 10 Days #100 udc PRN Reason: Cough Isosorbide MONOnitrate (24 HR) [Imdur] 30 mg PO DAILY #30 tab.er.24h predniSONE [PredniSONE] 60 mg PO DAILY #25 tablet Continue Simvastatin [Zocor] 20 mg PO HS methIMAzole [Methimazole] 30 mg PO BID Bumetanide [Bumex] 1 mg PO DAILY ALPRAZolam [Xanax 0.5 MG Tablet] 0.5 mg PO BID Pregabalin [Lyrica] 75 mg PO TID Nitroglycerin [Nitrostat] 0.4 mg SL Q5M PRN PRN Reason: Chest Pain Apixaban [Eliquis] 5 mg PO BID #60 tablet Lactobacillus [Culturelle] 1 each PO DAILY #90 cap.sprink Alendronate Sodium [Fosamax] 70 mg PO DAVIS Venlafaxine [Effexor] 75 mg PO BID Diltiazem CD (24hr) [Cardizem CD] 180 mg PO DAILY Amitriptyline [Elavil] 10 mg PO HS Aspirin [Lo-Dose Aspirin EC] 81 mg PO DAILY Discontinued Digoxin [Lanoxin] 0.25 mg PO DAILY Home Medications: ALPRAZolam [Xanax 0.5 MG Tablet] 0.5 mg PO BID 04/11/18 [History] Bumetanide [Bumex] 1 mg PO DAILY 04/11/18 [History] Nitroglycerin [Nitrostat] 0.4 mg SL Q5M PRN 04/11/18 [History] Pregabalin [Lyrica] 75 mg PO TID 04/11/18 [History] Simvastatin [Zocor] 20 mg PO HS 04/11/18 [History] methIMAzole [Methimazole] 30 mg PO BID 04/11/18 [History] Apixaban [Eliquis] 5 mg PO BID #60 tablet 04/13/18 [Rx] Lactobacillus [Culturelle] 1 each PO DAILY #90 cap.sprink 07/24/18 [Rx] Alendronate Sodium [Fosamax] 70 mg PO DAVIS 11/22/18 [History] Venlafaxine [Effexor] 75 mg PO BID 02/24/19 [History] Amitriptyline [Elavil] 10 mg PO HS 02/25/19 [History] Aspirin [Lo-Dose Aspirin EC] 81 mg PO DAILY 02/25/19 [History] Diltiazem CD (24hr) [Cardizem CD] 180 mg PO DAILY 02/25/19 [History] Albuterol Neb [Proventil Neb] 2.5 mg IH Q4HR #60 vial.neb 02/28/19 [Rx] Budesonide/Formoterol 160/4.5 [Symbicort 160/4.5] 2 puff IH BIDR #1 inh 02/28/19 [Rx] GuaiFENesin/Codeine [ROBITUSSIN w/CODEINE] 5 ml PO Q12H PRN 10 Days #100 udc 02/28/19 [Rx] Isosorbide MONOnitrate (24 HR) [Imdur] 30 mg PO DAILY #30 tab.er.24h 02/28/19 [Rx] predniSONE [PredniSONE] 60 mg PO DAILY #25 tablet 02/28/19 [Rx] Famotidine [Pepcid] 20 mg PO BID #30 tablet 03/01/19 [Rx] Allergies/Adverse Reactions: Allergy/AdvReac Type Severity Reaction Status Date / Time hydrocodone [From Vicodin] Allergy Swelling Verified 02/25/19 12:25 of Lip/Tongue/Throat morphine AdvReac Rash Verified 02/25/19 12:25 Date of admission: 02/23/19 18:32 Primary care physician: Arslan Victoria CNP Consults: 02/23/19 23:17 Consult to Nutrition [CONS] Routine Comment: Consulting Provider: NUTRITION Reason for Dietary Consult: MST Score Consult to Retail Pharmacist [CONS] Routine Reason for SW Consult: needs help at home 02/24/19 17:07 Consult to Nurse Navigator [CONS] Routine Comment: copd/chf 02/26/19 16:11 Consult to Occupational Therapy [CONS] Routine Comment: Evaluate, develop and implement POC Reason for Consult: deconditioning, increased weakness, from home alone Does patient have active BEDREST order?: No Is patient medically & hemodynamically stable?: Yes Patient assessed for mobility or mobilized this visit?: No Consult to Physical Therapy [CONS] Routine Comment: Evaluate, develop and implement POC Reason for Consult: deconditioning, increased weakness, from home alone Does patient have active BEDREST order?: No Is patient medically & hemodynamically stable?: Yes Patient assessed for mobility or mobilized this visit?: No 02/27/19 12:20 Consult to Respiratory Therapy [CONS] Routine Reason for Consult: RSV pneumonia Call Completed: No 02/27/19 12:21 Consult to Physical Therapy [CONS] Routine Comment: Evaluate, develop and implement POC Reason for Consult: Generalized weakness Does patient have active BEDREST order?: No Is patient medically & hemodynamically stable?: Yes Patient assessed for mobility or mobilized this visit?: No - Constitutional Vitals: Temp Pulse Resp BP Pulse Ox 97.8 F 69 16 136/75 97 02/28/19 08:19 02/28/19 08:19 02/28/19 08:19 02/28/19 08:19 02/28/19 08:19 Exam: General appearance: No acute distress, ENT exam: Moist oral mucosa Neck nontender, supple Respiratory exam: Few scattered rhonchi otherwise better air entry Cardiovascular exam: Regular rate and rhythm, no systolic murmur Abdominal exam: Soft, nontender, nondistended, positive bowel sounds Extremities exam: No calf tenderness, no pedal edema Present: Neurological exam: Alert, awake, oriented 3, CN II-XII intact, no focal deficits. No facial droop. Normal speech. Normal gait. - Patient Status Disposition: Home Health Service Condition: Fair Overall status at discharge: patient is progressing back to baseline - Discharge Instructions Follow Up With: Arslan Victoria, SUPERVISOR STATEMENT CLERKS [Primary Care Provider] - - Diet and Activity Activity: as per physical therapy Diet: advance to your usual diet
[2019-02-28] MEDS ORDERED: Isovue-370 500 ML BOTTLE IVP ONE (12:24)
[2019-02-28 13:23] LABS: Amylase 57 Units/L (29-103); Lipase 54 Units/L (11-82)
[2019-02-28] MEDS ORDERED: GI Cocktail 40 ML EACH PO ONE (17:50)
--- NOTE | 2019-02-28 17:51 | Internal Med Progress Note ---
Hospitalist Progress Note - Encounter Date of Encounter: 02/28/19 Time of Encounter: 17:49 - Subjective Interval History: Shortness of breath is better. Oxygen by nasal cannula 2 L that she takes at home. We were planning to discharge patient but develop severe left side abdominal pain with no associated nausea vomiting fever chills constipation diarrhea. She also denies any chest pain urinary or bowel complaint. Review the lab - Exam Vitals: Temp Pulse Resp BP Pulse Ox 97.9 F 72 16 136/60 100 02/28/19 16:38 02/28/19 16:38 02/28/19 16:38 02/28/19 16:38 02/28/19 16:38 Exam: General appearance: Mild distress due to abdominal pain ENT exam: Moist oral mucosa Neck nontender, supple Respiratory exam: Few scattered rhonchi otherwise better air entry Cardiovascular exam: Regular rate and rhythm, no systolic murmur Abdominal exam: Soft, slight tenderness epigastric and left upper quadrant, nondistended, positive bowel sounds Extremities exam: No calf tenderness, no pedal edema Present: Neurological exam: Alert, awake, oriented 3, CN II-XII intact, no focal deficits. No facial droop. Normal speech. Normal gait. - Assessment and Plan (1) Abdominal pain Current Visit: Yes Status: Acute Assessment and Plan: Sudden onset of abdominal pain. Patient has been complaining slight abdominal muscle pain due to cough therefore cough medicine was given before. But today she complained of severe abdominal pain while preparing for the discharge therefore discharge was canceled. Instead amylase lipase ordered that has been within normal limit. CT abdomen and pelvis with no acute finding. Patient does not feel comfortable to go home. Abdominal pain better after giving Tylenol. That could be possibility for gastritis as patient has been on a steroid therefore GI cocktail and antacid as started. Will object patient overnight in if continue to improve then will plan to discharge tomorrow. (2) Pneumonia Current Visit: Yes Status: Acute Assessment and Plan: SOB likely from CAP-unclear organism respiratory infectious panel-RSV positive, Legionella, strep pneumoniae -negative blood culture, sputum culture-no growth yet Continue ceftriaxone and azithromycin given history cdiff- stopped. CT angiogram-a small to moderate right pleural effusion, negative PE. Patchy area of consolidation/ground glass opacity bilaterally lower lobe, right middle lobe and left upper lobe. Stable mediastinal lymphadenopathy Patient is improving and respiratory symptoms but is still had generalized weakness therefore [facility]OT consulted and they advise home health care services for PT. Patient is ambulating but limited due to weakness. Patient will be discharged on tapering dose of prednisone 60 mg daily for total 5 days then 40 mg daily next 5 days and then 20 mg daily for 5 days along with nebulizer continuation every 4 hour as needed. Patient needs to follow primary care physician within one week. (3) COPD (chronic obstructive pulmonary disease) Current Visit: No Status: Chronic Assessment and Plan: Continue supplemental oxygen, DuoNeb. Tapering steroid (4) CAD (coronary artery disease) Current Visit: No Status: Chronic Assessment and Plan: Stable. Continue home medications . (5) Chronic respiratory failure with hypoxia Current Visit: No Status: Chronic (6) Afib Current Visit: No Status: Chronic Assessment and Plan: rate controlled now after restarting home dose diltiazem. Patient states that she was was taking high dose of digoxin at home but no digoxin was given during hospital stay and her heart rate has been controlled. At the time of discharge her heart rate in higher 60s. Digoxin was not plan to give at the time of discharge but patient needs to follow with cardiology to consider restarting if needed. There was fear that patient will develop bradycardia after restarting digoxin as already well controlled rate on diltiazem alone. Continue Eliquis. (7) Alkaline phosphatase elevation Current Visit: No Status: Acute (8) Hyperthyroidism Current Visit: No Status: Acute (9) CHF (congestive heart failure) Current Visit: Yes Status: Acute Assessment and Plan: BNP elevated but Not in exacerbation based on clinical assessment. without fluid overload (10) Acute and chronic respiratory failure with hypoxia Current Visit: Yes Status: Acute Assessment and Plan: likely related to pneumia as mentioned above (11) Hyperglycemia Current Visit: Yes Status: Acute Assessment and Plan: a1c 5.8. High blood glucose level secondary to a steroid. After decreasing his steroid her blood glucose level is well controlled therefore decided to stop long-acting insulin. Patient needs to follow with primary care physician about further monitoring of blood glucose level. - Time Spent with Patient Total time spent is greater than 50% in coordination of care (as documented) at patient's floor/unit and/or counseling patient: 25 - 35 minutes Plan of Care Discussed with: patient Internal Medicine: Result - Labs CBC & Chem 7: 02/28/19 04:29 02/28/19 04:29 Labs: Short CBC 02/28/19 Range/Units 04:29 WBC 10.5 D (4.3-11.1) K/mcL Hgb 10.8 L (11.5-15.4) g/dL Hct 34.1 L (35.3-44.9) % Plt Count 251 (140-400) K/mcL Neutrophils # 8.6 (1.6-8.9) K/mcL BMP 02/28/19 04:29 Sodium 132 L Potassium 4.9 Chloride 101 Carbon Dioxide 25 BUN 27 H Creatinine 0.32 L Glucose 95 Calcium 8.9 - ABG Interpretation ABG results: ABG ABG pH 7.40 pH Units (7.32-7.45) 02/24/19 22:57 ABG pCO2 39 mmHg (35-45) 02/24/19 22:57 ABG pO2 116 mmHg (85-104) H 02/24/19 22:57 ABG O2 Saturation 99 % (95-98) H 02/24/19 22:57 - Impressions Impressions Abdomen/Pelvis CT 02/28/19 12:24 IMPRESSION: No acute abnormality of the abdomen or pelvis. No findings to explain left lower quadrant pain. New body wall edema. Slightly increased loculated right pleural effusion and new small left pleural effusion. D/ / Kee Godfrey MD / Kee Godfrey MD Interpreting Provider: Kee Godfrey MD Consult Discharge Plan - Plan Referrals: Arslan Victoria, [employer] [Primary Care Provider] - Prescriptions: Albuterol Neb [Proventil Neb] 2.5 mg IH Q4HR #60 vial.neb Budesonide/Formoterol 160/4.5 [Symbicort 160/4.5] 2 puff IH BIDR #1 inh GuaiFENesin/Codeine [ROBITUSSIN w/CODEINE] 5 ml PO Q12H PRN 10 Days #100 udc PRN Reason: Cough Isosorbide MONOnitrate (24 HR) [Imdur] 30 mg PO DAILY #30 tab.er.24h predniSONE [PredniSONE] 60 mg PO DAILY #25 tablet (1) Abdominal pain Qualifiers: Abdominal location: upper abdomen, unspecified Qualified Code(s): R10.10 - Upper abdominal pain, unspecified (2) Pneumonia Qualifiers: Pneumonia type: due to unspecified organism Laterality: bilateral Lung location: unspecified part of lung Qualified Code(s): J18.9 - Pneumonia, unspecified organism (3) COPD (chronic obstructive pulmonary disease) Qualifiers: COPD type: unspecified COPD Qualified Code(s): J44.9 - Chronic obstructive pulmonary disease, unspecified (4) CAD (coronary artery disease) Qualifiers: Coronary Disease-Associated Artery/Lesion type: [place] artery [place] vs. transplanted heart: [place] heart Associated angina: with stable angina Qualified Code(s): I25.118 - Atherosclerotic heart disease of [place] coronary artery with other forms of angina pectoris (6) Afib Qualifiers: Atrial fibrillation type: chronic Qualified Code(s): I48.2 - Chronic atrial fibrillation (9) CHF (congestive heart failure) Qualifiers: Heart failure type: diastolic Heart failure chronicity: chronic Qualified C ode(s): I50.32 - Chronic diastolic (congestive) heart failure
[2019-02-28 18:19] LABS: Basophils % 0.3 %; Hematocrit 34.6 % (35.3-44.9); Hemoglobin 10.9 g/dL (11.5-15.4); Immature Granulocytes % 1.6 % (0-4); Lymphocytes # 0.4 K/mcL (0.6-4.6); Mean Corpuscular HGB Conc 31.5 g/dL (31.6-35.5); Mean Corpuscular Hemoglobin 27.4 pg (28.0-33.3); Mean Corpuscular Volume 86.9 fL (83.0-100.0); Mean Platelet Volume 11.8 fL (9.4-12.4); Monocytes # 0.4 K/mcL (0.0-1.3); Monocytes % 5.2 %; Neutrophils # 6.1 K/mcL (1.6-8.9); Platelet Count 221 K/mcL (140-400); Red Blood Count 3.98 M/mcL (3.82-4.97); Red Cell Distribution Width 14.6 % (11.5-14.5); Segmented Neutrophils % 86.9 %
[2019-02-28] MEDS ORDERED: Insulin DETEMIR 100 UNIT/ML X5UNITS SQ SCH (21:00)
[2019-03-01 02:33] LABS: BUN/Creatinine Ratio 83 (6-26); Blood Urea Nitrogen 19 mg/dL (8-23); Calcium 8.5 mg/dL (8.6-10.3); Carbon Dioxide 27 mEq/L (23-29); Chloride 104 mEq/L (98-107); Glucose 76 mg/dL (70-105); Osmolality,Calculated 283 (280-300); Potassium 4.6 mEq/L (3.5-5.1); Sodium 136 mEq/L (136-145); eGFR For Non-African Americans > 60 (> 60)
[2019-03-01] MEDS: Insulin LISPRO 300 UNITS/3 ML VIAL SQ SCH ×2 (08:00→12:35)
[2019-03-01] MEDS: methIMAzole 5 MG TABLET PO SCH (08:06)
[2019-03-01] MEDS: Diltiazem CD (24hr) 180 MG CAPSULE PO SCH (08:07)
[2019-03-01] MEDS: predniSONE 20 MG TABLET PO SCH (08:07)
[2019-03-01] MEDS: Apixaban 5 MG TABLET PO SCH (08:07)
[2019-03-01] MEDS: Isosorbide MONOnitrate (24 HR) 30 MG TAB.ER.24H PO SCH (08:07)
[2019-03-01] MEDS: Aspirin Enteric Coated 81 MG Tablet PO SCH (08:07)
[2019-03-01] MEDS: Lactobacillus 1 EACH CAP.SPRINK PO SCH (08:07)
[2019-03-01 10:21] VITALS: BP 138/56
[2019-03-01] MEDS: Budesonide/Formoterol 160/4.5 1 PUFF INH IH SCH (10:52)
[2019-03-01] MEDS: Levalbuterol Neb 1.25 MG/3 ML IH SCH (10:53)
[2019-03-01] MEDS: GuaiFENesin/Codeine Oral Soln 5 ML UDC PO PRN (13:37)
[2019-03-02] MEDS ORDERED: NON-FORMULARY MEDICATION 1 EACH EACH (Alendronate Sodium [Fosamax] 70 MG) PO SCH (11:16)
== END 2019-03-01 15:30 | disposition home health service (06) | DRG 193 ==
LOC: EMEROOARM 13:05 → SUATTDRO 18:32 → 3ANU 18:32
PROVIDERS: ADMIT Internal Medicine Nephrology; ATTEND Internal Medicine

== ENCOUNTER 2020-12-04 13:26 | Observation (INO) ==
[2020-12-04 13:58] LABS: Bilirubin,Urine Negative (Negative); Blood,Urine Negative (Negative); Clarity,Urine Clear (Clear); Color,Urine Colorless (Yellow); Glucose,Urine (UA) Normal (Normal); Ketones,Urine Negative (Negative); Leukocyte Esterase,Urine Negative (Negative); Nitrite,Urine Negative (Negative); PH,Urine 6.5 pH Units (5.0-8.0); Protein,Urine Negative (Neg-Trace); Specific Gravity,Urine 1.006 (1.010-1.025); Urobilinogen,Urine Normal (Normal)
[2020-12-04 14:13] LABS: Basophils % 0.2 %; Eosinophils % 0.2 %; Hematocrit 35.9 % (35.3-44.9); Hemoglobin 10.9 g/dL (11.5-15.4); Immature Granulocytes % 0.2 % (0-4); Lymphocytes # 0.7 K/mcL (0.6-4.6); Lymphocytes % 17.9 %; Mean Corpuscular HGB Conc 30.4 g/dL (31.6-35.5); Mean Corpuscular Hemoglobin 25.7 pg (28.0-33.3); Mean Corpuscular Volume 84.7 fL (83.0-100.0); Mean Platelet Volume 10.3 fL (9.4-12.4); Monocytes # 0.4 K/mcL (0.0-1.3); Monocytes % 9.3 %; Neutrophils # 2.9 K/mcL (1.6-8.9); Platelet Count 207 K/mcL (140-400); Red Blood Count 4.24 M/mcL (3.82-4.97); Red Cell Distribution Width 14.6 % (11.5-14.5); Segmented Neutrophils % 72.2 %; White Blood Count 4.1 K/mcL (4.3-11.1)
[2020-12-04 14:37] LABS: Alanine Aminotransferase 15 Units/L (7-52); Albumin/Globulin Ratio 1.1 (1.1-2.2); Alkaline Phosphatase 316 Units/L (34-104); Aspartate Amino Transferase 24 Units/L (13-39); BUN/Creatinine Ratio 25 (6-26); Bilirubin,Total 0.8 mg/dL (0.3-1.0); Blood Urea Nitrogen 7 mg/dL (8-23); Calcium 9.1 mg/dL (8.6-10.3); Carbon Dioxide 22 mEq/L (23-29); Chloride 104 mEq/L (98-107); Globulin 3.8 g/dL (2.4-3.5); Glucose 91 mg/dL (70-105); Osmolality,Calculated 278 (280-300); Potassium 3.6 mEq/L (3.5-5.1); Sodium 135 mEq/L (136-145); Total Protein 7.8 g/dL (6.4-8.9); Troponin I < 0.03 ng/mL (< 0.04); eGFR For African Americans > 60 (> 60); eGFR For Non-African Americans > 60 (> 60)
[2020-12-04] MEDS ORDERED: *HR* HYDROmorphone PF 0.5 MG/0.5 ML SYRINGE IVP ONE (16:45)
[2020-12-04] MEDS ORDERED: Isovue-370 500 ML BOTTLE IVP ONE (16:45)
[2020-12-04] MEDS ORDERED: Ondansetron 4 MG/2 ML VIAL IVP PRN (16:46)
[2020-12-04] MEDS ORDERED: Naloxone 0.4 MG/ML INJ IVP PRN (16:58)
[2020-12-04] MEDS: Nitroglycerin 0.4 MG TAB.SUBL SL PRN ×2 (17:17→21:50)
[2020-12-04] MEDS ORDERED: *HR* Labetalol 20 MG/4 ML SYRINGE IVP PRN (17:22)
[2020-12-04] MEDS ORDERED: Aspirin 325 MG TABLET PO ONE (17:23)
[2020-12-04] MEDS ORDERED: *HR* HYDROmorphone (PF) 1 MG/ML SYRINGE IVP ONE (17:30)
[2020-12-04] MEDS: Dexamethasone 4 MG/ML VIAL IVP SCH (18:03)
[2020-12-04] MEDS: Ipratropium 1 PUFF INHALER IH SCH (21:31)
[2020-12-04] MEDS: Apixaban 5 MG TABLET PO SCH (21:33)
[2020-12-04] MEDS: Furosemide 40 MG/4 ML VIAL IVP SCH (21:34)
[2020-12-04] MEDS ORDERED: *HR* OxyCODONE Immed Rel 5 MG TABLET PO ONE (23:07)
[2020-12-05] MEDS: Ipratropium 1 PUFF INHALER IH SCH ×7 (00:09→23:50)
[2020-12-05 01:02] LABS: Hematocrit 36.4 % (35.3-44.9); Hemoglobin 11.1 g/dL (11.5-15.4); Mean Corpuscular HGB Conc 30.5 g/dL (31.6-35.5); Mean Corpuscular Hemoglobin 25.5 pg (28.0-33.3); Mean Corpuscular Volume 83.5 fL (83.0-100.0); Mean Platelet Volume 11.4 fL (9.4-12.4); Platelet Count 197 K/mcL (140-400); Red Blood Count 4.36 M/mcL (3.82-4.97); Red Cell Distribution Width 14.5 % (11.5-14.5); White Blood Count 2.2 K/mcL (4.3-11.1)
[2020-12-05 01:20] LABS: BUN/Creatinine Ratio 28 (6-26); Blood Urea Nitrogen 10 mg/dL (8-23); Carbon Dioxide 24 mEq/L (23-29); Chloride 102 mEq/L (98-107); Glucose 264 mg/dL (70-105); Osmolality,Calculated 286 (280-300); Potassium 3.7 mEq/L (3.5-5.1); Sodium 134 mEq/L (136-145); eGFR For African Americans > 60 (> 60); eGFR For Non-African Americans > 60 (> 60)
[2020-12-05] MEDS: Aspirin 81 MG TAB.CHEW PO SCH (08:46)
[2020-12-05] MEDS: Furosemide 40 MG/4 ML VIAL IVP SCH ×2 (08:46→16:57)
[2020-12-05] MEDS: Apixaban 5 MG TABLET PO SCH ×2 (08:46→22:05)
[2020-12-05] MEDS: Dexamethasone 4 MG/ML VIAL IVP SCH (08:47)
[2020-12-05] MEDS: Acetaminophen 325 MG TABLET PO PRN ×2 (08:47→16:57)
[2020-12-05] MEDS ORDERED: Ketorolac 30 MG/ML VIAL IVP ONE (09:35)
[2020-12-05] MEDS ORDERED: Isosorbide MONOnitrate (24 HR) 60 MG TAB.ER.24H PO SCH (17:30)
[2020-12-05] MEDS ORDERED: Metoprolol XL (24 HR) Succ 50 MG TAB.ER.24H PO SCH (18:00)
[2020-12-05] MEDS ORDERED: Isosorbide MONOnitrate (24 HR) 30 MG TAB.ER.24H PO SCH (18:00)
[2020-12-05] MEDS: lisinopriL 5 MG TABLET PO SCH (18:23)
[2020-12-05] MEDS: methIMAzole 5 MG TABLET PO SCH ×2 (18:24→22:25)
[2020-12-05] MEDS: Pregabalin 75 MG CAPSULE PO SCH ×2 (18:25→22:26)
[2020-12-05] MEDS: Ibuprofen 800 MG TABLET PO SCH (18:30)
[2020-12-05] MEDS: *HR* OxyCODONE Immed Rel 5 MG TABLET PO PRN (22:05)
[2020-12-06] MEDS: Ibuprofen 800 MG TABLET PO SCH ×2 (01:35→08:35)
[2020-12-06 02:07] LABS: Hematocrit 33.4 % (35.3-44.9); Mean Corpuscular HGB Conc 29.9 g/dL (31.6-35.5); Mean Corpuscular Hemoglobin 25.1 pg (28.0-33.3); Mean Corpuscular Volume 83.7 fL (83.0-100.0); Mean Platelet Volume 11.3 fL (9.4-12.4); Platelet Count 201 K/mcL (140-400); Red Blood Count 3.99 M/mcL (3.82-4.97); Red Cell Distribution Width 14.4 % (11.5-14.5)
[2020-12-06 02:10] LABS: White Blood Count 4.6 K/mcL (4.3-11.1)
[2020-12-06 02:21] LABS: BUN/Creatinine Ratio 56 (6-26); Blood Urea Nitrogen 36 mg/dL (8-23); Calcium 8.5 mg/dL (8.6-10.3); Carbon Dioxide 23 mEq/L (23-29); Chloride 103 mEq/L (98-107); Glucose 207 mg/dL (70-105); Osmolality,Calculated 298 (280-300); Potassium 3.4 mEq/L (3.5-5.1); Sodium 137 mEq/L (136-145); eGFR For African Americans > 60 (> 60); eGFR For Non-African Americans > 60 (> 60)
[2020-12-06] MEDS: Ipratropium 1 PUFF INHALER IH SCH ×3 (03:52→11:55)
[2020-12-06 07:38] VITALS: BP 107/63
[2020-12-06] MEDS: Pregabalin 75 MG CAPSULE PO SCH (08:35)
[2020-12-06] MEDS: Apixaban 5 MG TABLET PO SCH (08:35)
[2020-12-06] MEDS: methIMAzole 5 MG TABLET PO SCH (08:35)
[2020-12-06] MEDS: lisinopriL 5 MG TABLET PO SCH (08:35)
[2020-12-06] MEDS: Aspirin 81 MG TAB.CHEW PO SCH (08:35)
[2020-12-06] MEDS: Dexamethasone 4 MG/ML VIAL IVP SCH (08:36)
[2020-12-06] MEDS: Furosemide 40 MG/4 ML VIAL IVP SCH (08:36)
[2020-12-06] MEDS: *HR* OxyCODONE Immed Rel 5 MG TABLET PO PRN (12:19)
== END 2020-12-06 14:58 | disposition home or self-care (01) ==
LOC: EMEROOARM 13:26 → 3BNU 13:26
PROVIDERS: ADMIT Internal Medicine; ATTEND Internal Medicine

== ENCOUNTER 2021-07-13 18:00 | Inpatient (IN) ==
[2021-07-13 18:40] LABS: Basophils % 0.2 %; Eosinophils % 0.7 %; Hematocrit 33.9 % (35.3-44.9); Immature Granulocytes % 0.2 % (0-4); Lymphocytes # 0.8 K/mcL (0.6-4.6); Lymphocytes % 17.7 %; Mean Corpuscular HGB Conc 29.5 g/dL (31.6-35.5); Mean Corpuscular Hemoglobin 24.3 pg (28.0-33.3); Mean Corpuscular Volume 82.3 fL (83.0-100.0); Mean Platelet Volume 10.7 fL (9.4-12.4); Monocytes # 0.3 K/mcL (0.0-1.3); Monocytes % 6.2 %; Neutrophils # 3.4 K/mcL (1.6-8.9); Platelet Count 200 K/mcL (140-400); Red Blood Count 4.12 M/mcL (3.82-4.97); Red Cell Distribution Width 19.1 % (11.5-14.5); White Blood Count 4.5 K/mcL (4.3-11.1)
[2021-07-13] MEDS ORDERED: 0.9 % Sodium Chloride 1,000 ML IVC ONE (18:58)
[2021-07-13 19:03] LABS: BUN/Creatinine Ratio 35 (6-26); Blood Urea Nitrogen 11 mg/dL (8-23); Calcium 9.3 mg/dL (8.6-10.3); Carbon Dioxide 26 mEq/L (23-29); Chloride 105 mEq/L (98-107); Glucose 96 mg/dL (70-105); Osmolality,Calculated 285 (280-300); Sodium 138 mEq/L (136-145); Troponin I < 0.03 ng/mL (< 0.04); eGFR For African Americans > 60 (> 60); eGFR For Non-African Americans > 60 (> 60)
[2021-07-13 19:40] LABS: INR 1.3
[2021-07-13 19:42] LABS: Activated Partial Thrombo Time 30.7 Seconds (26.0-36.0)
[2021-07-13] MEDS ORDERED: Isovue-370 500 ML BOTTLE IVP ONE (20:08)
[2021-07-13] MEDS ORDERED: Metoprolol XL (24 HR) Succ 50 MG TAB.ER.24H PO ONE (21:48)
[2021-07-13] MEDS ORDERED: Ipratropium/Albuterol Neb 3 ML IH ONE (21:50)
[2021-07-13] MEDS ORDERED: Ondansetron 4 MG/2 ML VIAL IVP PRN (23:43)
[2021-07-13] MEDS ORDERED: Naloxone 0.4 MG/ML INJ IVP PRN (23:43)
[2021-07-13] MEDS ORDERED: Aspirin 81 MG TAB.CHEW PO ONE (23:58)
[2021-07-13] MEDS: Nitroglycerin 0.4 MG TAB.SUBL SL SCH (23:59)
[2021-07-14] MEDS: Nitroglycerin 0.4 MG TAB.SUBL SL SCH
[2021-07-14] MEDS: Acetaminophen 325 MG TABLET PO PRN ×2 (00:15→15:21)
[2021-07-14] MEDS ORDERED: Ipratropium/Albuterol Neb 3 ML IH PRN (01:19)
[2021-07-14 02:40] LABS: Basophils % 0.5 %; Eosinophils # 0.1 K/mcL (0.0-0.6); Eosinophils % 1.4 %; Hematocrit 32.4 % (35.3-44.9); Hemoglobin 9.4 g/dL (11.5-15.4); Immature Granulocytes % 0.2 % (0-4); Lymphocytes # 0.8 K/mcL (0.6-4.6); Lymphocytes % 18.9 %; Mean Corpuscular Hemoglobin 24.1 pg (28.0-33.3); Mean Corpuscular Volume 83.1 fL (83.0-100.0); Mean Platelet Volume 11.2 fL (9.4-12.4); Monocytes # 0.3 K/mcL (0.0-1.3); Monocytes % 6.4 %; Neutrophils # 3.2 K/mcL (1.6-8.9); Platelet Count 190 K/mcL (140-400); Red Cell Distribution Width 19.1 % (11.5-14.5); Segmented Neutrophils % 72.6 %; White Blood Count 4.4 K/mcL (4.3-11.1)
[2021-07-14] MEDS: MethylPREDNISolone 40 MG/ML VIAL IVP SCH ×2 (02:49→13:41)
[2021-07-14 03:02] LABS: Troponin I < 0.03 ng/mL (< 0.04)
[2021-07-14 03:11] LABS: Alanine Aminotransferase 11 Units/L (7-52); Albumin 3.4 g/dL (3.5-5.7); Albumin/Globulin Ratio 0.8 (1.1-2.2); Alkaline Phosphatase 252 Units/L (34-104); Aspartate Amino Transferase 23 Units/L (13-39); BUN/Creatinine Ratio 32 (6-26); Bilirubin,Total 1.8 mg/dL (0.3-1.0); Blood Urea Nitrogen 10 mg/dL (8-23); Carbon Dioxide 25 mEq/L (23-29); Chloride 107 mEq/L (98-107); Globulin 4.1 g/dL (2.4-3.5); Glucose 84 mg/dL (70-105); Magnesium 1.8 mg/dL (1.6-2.6); Osmolality,Calculated 284 (280-300); Potassium 3.8 mEq/L (3.5-5.1); Sodium 138 mEq/L (136-145); Total Protein 7.5 g/dL (6.4-8.9); eGFR For African Americans > 60 (> 60); eGFR For Non-African Americans > 60 (> 60)
[2021-07-14 03:17] LABS: Thyroid Stimulating Hormone < 0.010 mcIU/mL (0.340-5.600)
[2021-07-14 07:58] LABS: Adenovirus Not Detected (Not Detect); Bordetella Pertussis Not Detected (Not Detect); Chlamydophila pneumoniae Not Detected (Not Detect); Coronavirus 229E Not Detected (Not Detect); Coronavirus HKU1 Not Detected (Not Detect); Coronavirus NL63 Not Detected (Not Detect); Coronavirus OC43 Not Detected (Not Detect); Human Metapneumovirus Not Detected (Not Detect); Human Rhinovirus/Enterovirus Not Detected (Not Detect); Influenza A Subtype 2009 H1 Not Detected (Not Detect); Influenza B Not Detected (Not Detect); Mycoplasma pneumoniae Not Detected (Not Detect); Parainfluenza Virus 1 Not Detected (Not Detect); Parainfluenza Virus 2 Not Detected (Not Detect); Parainfluenza Virus 3 Not Detected (Not Detect); Parainfluenza Virus 4 Not Detected (Not Detect); Respiratory Syncytial Virus Not Detected (Not Detect); SARS-CoV-2 Not Detected (Not Detect)
[2021-07-14] MEDS: Azithromycin 500 MG in 0.9 % Sodium Chloride 250 ML IVPB SCH (09:24)
[2021-07-14 11:23] LABS: Triiodothyronine (T3) Free 5.2 pg/mL (2.50-3.90)
[2021-07-14 12:42] LABS: INR 1.6; Prothrombin Time 17.7 Seconds (9.4-12.1)
[2021-07-14] MEDS: methIMAzole 5 MG TABLET PO SCH ×2 (16:38→21:38)
[2021-07-14] MEDS ORDERED: Warfarin perPT PO PRN (18:00)
[2021-07-14] MEDS ORDERED: *HR* Warfarin 3 MG TABLET PO ONE (18:00)
[2021-07-14] MEDS: *HR* Enoxaparin 60 MG/0.6 ML SYRINGE SQ SCH (21:40)
[2021-07-14] MEDS: Budesonide/Formoterol 160/4.5 1 PUFF INH IH SCH (21:57)
[2021-07-14] MEDS ORDERED: Aspirin 81 MG TAB.CHEW PO ONE (23:28)
[2021-07-15 01:43] LABS: INR 1.6
[2021-07-15] MEDS: MethylPREDNISolone 40 MG/ML VIAL IVP SCH ×2 (02:07→14:41)
[2021-07-15] MEDS: Budesonide/Formoterol 160/4.5 1 PUFF INH IH SCH ×2 (07:38→20:11)
[2021-07-15] MEDS: *HR* Enoxaparin 60 MG/0.6 ML SYRINGE SQ SCH ×2 (09:59→20:02)
[2021-07-15] MEDS: Azithromycin 500 MG in 0.9 % Sodium Chloride 250 ML IVPB SCH (09:59)
[2021-07-15] MEDS: methIMAzole 5 MG TABLET PO SCH ×3 (10:00→20:04)
[2021-07-15] MEDS: Furosemide 40 MG/4 ML VIAL IVP SCH ×2 (10:01→20:05)
[2021-07-15] MEDS: Metoprolol XL (24 HR) Succ 25 MG TAB.ER.24H PO SCH (11:46)
[2021-07-15] MEDS: lisinopriL 5 MG TABLET PO SCH (11:46)
[2021-07-15] MEDS ORDERED: *HR* Warfarin 3 MG TABLET PO ONE (18:00)
[2021-07-15] MEDS: Acetaminophen 325 MG TABLET PO PRN (20:03)
[2021-07-16 02:22] LABS: Hematocrit 29.1 % (35.3-44.9); Hemoglobin 8.8 g/dL (11.5-15.4); Immature Granulocytes % 0.4 % (0-4); Lymphocytes # 0.2 K/mcL (0.6-4.6); Lymphocytes % 7.6 %; Mean Corpuscular HGB Conc 30.2 g/dL (31.6-35.5); Mean Corpuscular Hemoglobin 24.4 pg (28.0-33.3); Mean Corpuscular Volume 80.6 fL (83.0-100.0); Mean Platelet Volume 11.7 fL (9.4-12.4); Monocytes # 0.1 K/mcL (0.0-1.3); Monocytes % 2.2 %; Neutrophils # 2.5 K/mcL (1.6-8.9); Platelet Count 153 K/mcL (140-400); Red Blood Count 3.61 M/mcL (3.82-4.97); Red Cell Distribution Width 18.6 % (11.5-14.5); Segmented Neutrophils % 89.8 %; White Blood Count 2.8 K/mcL (4.3-11.1)
[2021-07-16 02:28] LABS: INR 1.4
[2021-07-16 02:50] LABS: BUN/Creatinine Ratio 50 (6-26); Blood Urea Nitrogen 22 mg/dL (8-23); Calcium 8.8 mg/dL (8.6-10.3); Carbon Dioxide 24 mEq/L (23-29); Chloride 102 mEq/L (98-107); Glucose 369 mg/dL (70-105); Magnesium 1.8 mg/dL (1.6-2.6); Osmolality,Calculated 296 (280-300); Potassium 4.2 mEq/L (3.5-5.1); Sodium 134 mEq/L (136-145); eGFR For African Americans > 60 (> 60); eGFR For Non-African Americans > 60 (> 60)
[2021-07-16] MEDS: Budesonide/Formoterol 160/4.5 1 PUFF INH IH SCH ×3 (08:06→19:41)
[2021-07-16] MEDS: Furosemide 40 MG/4 ML VIAL IVP SCH ×2 (09:26→20:52)
[2021-07-16] MEDS: Azithromycin 500 MG in 0.9 % Sodium Chloride 250 ML IVPB SCH (09:26)
[2021-07-16] MEDS: lisinopriL 5 MG TABLET PO SCH (09:27)
[2021-07-16] MEDS: methIMAzole 5 MG TABLET PO SCH ×3 (09:27→20:53)
[2021-07-16] MEDS: Metoprolol XL (24 HR) Succ 25 MG TAB.ER.24H PO SCH (09:29)
[2021-07-16] MEDS: predniSONE 20 MG TABLET PO SCH (09:29)
[2021-07-16] MEDS: *HR* Enoxaparin 60 MG/0.6 ML SYRINGE SQ SCH ×2 (09:29→20:53)
[2021-07-16] MEDS: Acetaminophen 325 MG TABLET PO PRN (09:48)
[2021-07-16] MEDS ORDERED: *HR* Warfarin 4 MG TABLET PO ONE (18:00)
[2021-07-17 06:22] LABS: INR 1.7; Prothrombin Time 19.6 Seconds (9.4-12.1)
[2021-07-17] MEDS: Budesonide/Formoterol 160/4.5 1 PUFF INH IH SCH ×3 (07:55→21:30)
[2021-07-17] MEDS: predniSONE 20 MG TABLET PO SCH (09:44)
[2021-07-17] MEDS: Azithromycin 500 MG in 0.9 % Sodium Chloride 250 ML IVPB SCH (09:44)
[2021-07-17] MEDS: Metoprolol XL (24 HR) Succ 25 MG TAB.ER.24H PO SCH (09:44)
[2021-07-17] MEDS: Furosemide 40 MG/4 ML VIAL IVP SCH ×2 (09:45→21:13)
[2021-07-17] MEDS: lisinopriL 5 MG TABLET PO SCH (09:45)
[2021-07-17] MEDS: *HR* Enoxaparin 60 MG/0.6 ML SYRINGE SQ SCH ×2 (09:51→21:14)
[2021-07-17] MEDS: methIMAzole 5 MG TABLET PO SCH ×3 (16:03→21:14)
[2021-07-17] MEDS ORDERED: *HR* Warfarin 4 MG TABLET PO ONE (18:00)
[2021-07-17] MEDS ORDERED: *HR* Warfarin 2 MG TABLET PO ONE (18:45)
[2021-07-17] MEDS: Acetaminophen 325 MG TABLET PO PRN (21:14)
[2021-07-18 07:23] VITALS: BP 109/71; PULSE 70; TEMP 97.5
[2021-07-18] MEDS: Budesonide/Formoterol 160/4.5 1 PUFF INH IH SCH (08:18)
[2021-07-18 08:24] VITALS: O2SAT 98
[2021-07-18 09:01] LABS: INR 2.1; Prothrombin Time 24.3 Seconds (9.4-12.1)
[2021-07-18] MEDS: Metoprolol XL (24 HR) Succ 25 MG TAB.ER.24H PO SCH (10:08)
[2021-07-18] MEDS: lisinopriL 5 MG TABLET PO SCH (10:08)
[2021-07-18] MEDS: Azithromycin 500 MG in 0.9 % Sodium Chloride 250 ML IVPB SCH (10:19)
[2021-07-18] MEDS: *HR* Enoxaparin 60 MG/0.6 ML SYRINGE SQ SCH (10:20)
[2021-07-18] MEDS: predniSONE 20 MG TABLET PO SCH (10:21)
[2021-07-18] MEDS: methIMAzole 5 MG TABLET PO SCH (10:21)
[2021-07-18] MEDS: Furosemide 40 MG/4 ML VIAL IVP SCH (10:21)
[2021-07-18] MEDS ORDERED: *HR* Warfarin 4 MG TABLET PO ONE (18:00)
== END 2021-07-18 12:14 | disposition home or self-care (01) | DRG 291 ==
LOC: CDU 18:00 → EMEROOARM 18:00 → SUATTDRO 07-14 00:11 → 3ANU 07-14 00:20
PROVIDERS: ADMIT Internal Medicine; ATTEND Hospitalist

== ENCOUNTER 2021-11-10 15:09 | Inpatient (IN) ==
[2021-11-10] MEDS ORDERED: *HR* HYDROcodone/Acet 5/325 mg TABLET PO PRN (19:44)
[2021-11-10] MEDS ORDERED: Naloxone 0.4 MG/ML INJ IVP PRN (19:44)
[2021-11-10] MEDS ORDERED: *HR* Promethazine 25 MG/ML VIAL IM PRN (19:44)
[2021-11-10] MEDS ORDERED: Ondansetron 4 MG/2 ML VIAL IVP PRN (19:44)
[2021-11-10] MEDS ORDERED: Melatonin 3 MG TABLET PO PRN (19:44)
[2021-11-10] MEDS ORDERED: Ipratropium/Albuterol Neb 3 ML IH PRN (19:50)
[2021-11-10] MEDS: methIMAzole 5 MG TABLET PO SCH (21:16)
[2021-11-10] MEDS: Albumin 25% 25gram/100mL 25 GM/100 ML IV.SOLN IVC SCH ×2 (21:16→22:59)
[2021-11-10] MEDS: *HR* Enoxaparin 60 MG/0.6 ML SYRINGE SQ SCH (21:16)
[2021-11-10] MEDS: Budesonide/Formoterol 160/4.5 1 PUFF INH IH SCH (21:28)
[2021-11-10] MEDS: Acetaminophen 325 MG TABLET PO PRN (21:45)
[2021-11-11] MEDS: Albumin 25% 25gram/100mL 25 GM/100 ML IV.SOLN IVC SCH ×2 (00:30→02:17)
[2021-11-11 07:07] LABS: Basophils % 0.6 %; Eosinophils # 0.1 K/mcL (0.0-0.6); Eosinophils % 2.7 %; Hematocrit 25.3 % (35.3-44.9); Hemoglobin 7.6 g/dL (11.5-15.4); Immature Granulocytes % 0.3 % (0-4); Lymphocytes # 0.6 K/mcL (0.6-4.6); Lymphocytes % 17.6 %; Mean Corpuscular Hemoglobin 24.5 pg (28.0-33.3); Mean Corpuscular Volume 81.6 fL (83.0-100.0); Monocytes # 0.3 K/mcL (0.0-1.3); Monocytes % 9.4 %; Neutrophils # 2.3 K/mcL (1.6-8.9); Platelet Count 174 K/mcL (140-400); Red Cell Distribution Width 18.9 % (11.5-14.5); Segmented Neutrophils % 69.4 %; White Blood Count 3.3 K/mcL (4.3-11.1)
[2021-11-11 07:14] LABS: INR 1.4
[2021-11-11 07:55] LABS: Alanine Aminotransferase 10 Units/L (7-52); Albumin 3.9 g/dL (3.5-5.7); Albumin/Globulin Ratio 1.2 (1.1-2.2); Alkaline Phosphatase 186 Units/L (34-104); Aspartate Amino Transferase 20 Units/L (13-39); BUN/Creatinine Ratio 59 (6-26); Bilirubin,Total 1.1 mg/dL (0.3-1.0); Blood Urea Nitrogen 23 mg/dL (8-23); Calcium 8.7 mg/dL (8.6-10.3); Carbon Dioxide 28 mEq/L (23-29); Chloride 101 mEq/L (98-107); Chol/HDL Ratio 2.6 (0-4.9); Cholesterol 51 mg/dL (< 200); Globulin 3.2 g/dL (2.4-3.5); Glucose 83 mg/dL (70-105); HDL Cholesterol 20 mg/dL (40-59); LDL Cholesterol,Calculated 22 mg/dL (< 100); Magnesium 2.1 mg/dL (1.6-2.6); Osmolality,Calculated 283 (280-300); Potassium 3.8 mEq/L (3.5-5.1); Sodium 135 mEq/L (136-145); Total Protein 7.1 g/dL (6.4-8.9); Triglycerides 46 mg/dL (< 150); eGFR For African Americans > 60 (> 60); eGFR For Non-African Americans > 60 (> 60)
[2021-11-11] MEDS: methIMAzole 5 MG TABLET PO SCH ×3 (08:17→20:55)
[2021-11-11] MEDS: *HR* Enoxaparin 60 MG/0.6 ML SYRINGE SQ SCH (08:18)
[2021-11-11] MEDS: Budesonide/Formoterol 160/4.5 1 PUFF INH IH SCH ×2 (10:06→23:11)
[2021-11-11 12:51] LABS: Thyroid Stimulating Hormone < 0.010 mcIU/mL (0.340-5.600)
[2021-11-11 15:16] LABS: C-Reactive Protein 22 mg/L (Less than 10)
[2021-11-11] MEDS ORDERED: *HR* Rivaroxaban 10 MG TABLET PO SCH (17:00)
[2021-11-11] MEDS ORDERED: Ketorolac 30 MG/ML VIAL IVP ONE (22:33)
[2021-11-12] MEDS: Acetaminophen 325 MG TABLET PO PRN (00:31)
[2021-11-12 07:21] LABS: Basophils % 0.5 %; Eosinophils # 0.2 K/mcL (0.0-0.6); Eosinophils % 3.7 %; Hematocrit 27.7 % (35.3-44.9); Hemoglobin 8.1 g/dL (11.5-15.4); Immature Granulocytes % 0.2 % (0-4); Lymphocytes # 0.6 K/mcL (0.6-4.6); Lymphocytes % 13.7 %; Mean Corpuscular HGB Conc 29.2 g/dL (31.6-35.5); Mean Corpuscular Hemoglobin 24.3 pg (28.0-33.3); Mean Corpuscular Volume 82.9 fL (83.0-100.0); Mean Platelet Volume 11.9 fL (9.4-12.4); Monocytes # 0.3 K/mcL (0.0-1.3); Monocytes % 7.6 %; Platelet Count 171 K/mcL (140-400); Red Blood Count 3.34 M/mcL (3.82-4.97); Red Cell Distribution Width 18.7 % (11.5-14.5); Segmented Neutrophils % 74.3 %; White Blood Count 4.1 K/mcL (4.3-11.1)
[2021-11-12 07:24] LABS: Neutrophils # 3.1 K/mcL (1.6-8.9)
[2021-11-12 07:36] LABS: BUN/Creatinine Ratio 56 (6-26); Blood Urea Nitrogen 24 mg/dL (8-23); Calcium 8.9 mg/dL (8.6-10.3); Carbon Dioxide 29 mEq/L (23-29); Chloride 101 mEq/L (98-107); Glucose 78 mg/dL (70-105); Osmolality,Calculated 283 (280-300); Potassium 4.3 mEq/L (3.5-5.1); Sodium 135 mEq/L (136-145); eGFR For African Americans > 60 (> 60); eGFR For Non-African Americans > 60 (> 60)
[2021-11-12] MEDS: *HR* Rivaroxaban 10 MG TABLET PO SCH (07:38)
[2021-11-12] MEDS: methIMAzole 5 MG TABLET PO SCH ×3 (07:39→21:21)
[2021-11-12] MEDS: Metoprolol XL (24 HR) Succ 25 MG TAB.ER.24H PO SCH (07:39)
[2021-11-12] MEDS: lisinopriL 5 MG TABLET PO SCH (07:39)
[2021-11-12 08:21] LABS: Anisocytosis 1+ (Not Present); Hypochromasia Present (Not Present); Platelet Estimate Normal (Normal)
[2021-11-12] MEDS: Budesonide/Formoterol 160/4.5 1 PUFF INH IH SCH ×2 (10:05→23:00)
[2021-11-13] MEDS ORDERED: Ketorolac 30 MG/ML VIAL IVP ONE (02:26)
[2021-11-13 04:09] VITALS: BP 112/67; PULSE 64; TEMP 98.4; O2SAT 99
[2021-11-13] MEDS: *HR* Rivaroxaban 10 MG TABLET PO SCH (09:33)
[2021-11-13] MEDS: Metoprolol XL (24 HR) Succ 25 MG TAB.ER.24H PO SCH (09:34)
[2021-11-13] MEDS: lisinopriL 5 MG TABLET PO SCH (09:34)
[2021-11-13] MEDS: methIMAzole 5 MG TABLET PO SCH (09:34)
== END 2021-11-13 10:56 | disposition home or self-care (01) | DRG 299 ==
LOC: 4WAOSI → SUATTDRO 19:44 → 4WAOSI 11-11 13:30
PROVIDERS: ADMIT Internal Medicine; ATTEND Internal Medicine

== ENCOUNTER 2022-01-08 16:00 | Observation (INO) ==
[2022-01-08] MEDS ORDERED: 0.9 % Sodium Chloride 1,000 ML IVC ONE (16:08)
[2022-01-08 16:43] LABS: Basophils % 0.2 %; Eosinophils % 0.4 %; Hematocrit 31.1 % (35.3-44.9); Hemoglobin 9.2 g/dL (11.5-15.4); Immature Granulocytes % 0.2 % (0-4); Lymphocytes # 0.5 K/mcL (0.6-4.6); Lymphocytes % 9.4 %; Mean Corpuscular HGB Conc 29.6 g/dL (31.6-35.5); Mean Corpuscular Hemoglobin 25.7 pg (28.0-33.3); Mean Corpuscular Volume 86.9 fL (83.0-100.0); Mean Platelet Volume 11.1 fL (9.4-12.4); Monocytes # 0.3 K/mcL (0.0-1.3); Monocytes % 5.1 %; Neutrophils # 4.2 K/mcL (1.6-8.9); Platelet Count 156 K/mcL (140-400); Red Blood Count 3.58 M/mcL (3.82-4.97); Red Cell Distribution Width 20.6 % (11.5-14.5); Segmented Neutrophils % 84.7 %; White Blood Count 4.9 K/mcL (4.3-11.1)
[2022-01-08 17:03] LABS: BUN/Creatinine Ratio 42 (6-26); Blood Urea Nitrogen 14 mg/dL (8-23); Calcium 8.7 mg/dL (8.6-10.3); Carbon Dioxide 29 mEq/L (23-29); Chloride 104 mEq/L (98-107); Glucose 107 mg/dL (70-105); Osmolality,Calculated 287 (280-300); Potassium 3.8 mEq/L (3.5-5.1); Sodium 138 mEq/L (136-145); Troponin I < 0.03 ng/mL (< 0.04); eGFR For African Americans > 60 (> 60); eGFR For Non-African Americans > 60 (> 60)
[2022-01-08 18:25] LABS: Bacteria,Urine Few per hpf (None-Few); Bilirubin,Urine Negative (Negative); Blood,Urine Negative (Negative); Clarity,Urine Turbid (Clear); Color,Urine Yellow (Yellow); Glucose,Urine (UA) Normal (Normal); Ketones,Urine Negative (Negative); Leukocyte Esterase,Urine Negative (Negative); Mucus,Urine Few per lpf (None-Few); Nitrite,Urine Negative (Negative); Protein,Urine 50 mg/dL (Neg-Trace); RBC,Urine 0-3 per hpf (0-3); Specific Gravity,Urine 1.022 (1.010-1.025); Squamous Epithelial Cell,Urine Few per hpf (None-Few); WBC,Urine 0-3 per hpf (0-3)
[2022-01-08] MEDS ORDERED: Piperacillin/Tazobactam 3.375 GM in 0.9 % Sodium Chloride Mini Bag 100 ML IVPB ONE (18:41)
[2022-01-08] MEDS ORDERED: Melatonin 3 MG TABLET PO PRN (19:52)
[2022-01-08] MEDS ORDERED: *HR* HYDROcodone/Acet 5/325 mg TABLET PO PRN (19:52)
[2022-01-08] MEDS ORDERED: Ondansetron 4 MG/2 ML VIAL IVP PRN (19:52)
[2022-01-08] MEDS ORDERED: *HR* Promethazine 25 MG/ML VIAL IM PRN (19:52)
[2022-01-08] MEDS ORDERED: Naloxone 0.4 MG/ML INJ IVP PRN (19:52)
[2022-01-08] MEDS ORDERED: Acetaminophen 325 MG TABLET PO PRN (19:52)
[2022-01-08] MEDS: *HR* OxyCODONE/APAP 5/325 TABLET PO PRN (21:21)
[2022-01-09] MEDS: *HR* OxyCODONE/APAP 5/325 TABLET PO PRN ×2 (03:32→18:17)
[2022-01-09] MEDS ORDERED: *HR* LORazepam 1 MG TABLET PO ONE (05:10)
[2022-01-09 05:33] LABS: Basophils % 0.3 %; Eosinophils # 0.1 K/mcL (0.0-0.6); Eosinophils % 1.6 %; Hematocrit 28.4 % (35.3-44.9); Hemoglobin 8.3 g/dL (11.5-15.4); Immature Granulocytes % 0.3 % (0-4); Lymphocytes # 0.5 K/mcL (0.6-4.6); Lymphocytes % 14.2 %; Mean Corpuscular HGB Conc 29.2 g/dL (31.6-35.5); Mean Corpuscular Hemoglobin 25.4 pg (28.0-33.3); Mean Corpuscular Volume 86.9 fL (83.0-100.0); Mean Platelet Volume 10.5 fL (9.4-12.4); Monocytes # 0.3 K/mcL (0.0-1.3); Monocytes % 8.9 %; Neutrophils # 2.8 K/mcL (1.6-8.9); Platelet Count 129 K/mcL (140-400); Red Blood Count 3.27 M/mcL (3.82-4.97); Red Cell Distribution Width 20.7 % (11.5-14.5); Segmented Neutrophils % 74.7 %; White Blood Count 3.7 K/mcL (4.3-11.1)
[2022-01-09 05:35] LABS: INR 1.4; Prothrombin Time 15.2 Seconds (9.4-12.1)
[2022-01-09 05:43] LABS: BUN/Creatinine Ratio 46 (6-26); Blood Urea Nitrogen 13 mg/dL (8-23); Calcium 8.3 mg/dL (8.6-10.3); Carbon Dioxide 27 mEq/L (23-29); Chloride 108 mEq/L (98-107); Glucose 78 mg/dL (70-105); Osmolality,Calculated 287 (280-300); Potassium 3.8 mEq/L (3.5-5.1); Sodium 139 mEq/L (136-145); eGFR For African Americans > 60 (> 60); eGFR For Non-African Americans > 60 (> 60)
[2022-01-09] MEDS ORDERED: Furosemide 20 MG/2 ML VIAL IVP ONE (07:37)
[2022-01-09] MEDS: Budesonide/Formoterol 160/4.5 1 PUFF INH IH SCH ×2 (07:53→20:29)
[2022-01-09] MEDS: *HR* Rivaroxaban 10 MG TABLET PO SCH (08:27)
[2022-01-09] MEDS ORDERED: Perflutren Lipid Microsphere 1.3 ML in 0.9 % Sodium Chloride 8.7 ML IVP PRN (12:46)
[2022-01-10] MEDS: *HR* OxyCODONE/APAP 5/325 TABLET PO PRN ×2 (03:17→09:30)
[2022-01-10] MEDS ORDERED: *HR* HYDROmorphone (PF) 1 MG/ML SYRINGE IVP ONE (03:56)
[2022-01-10 05:27] LABS: Basophils % 0.3 %; Hemoglobin 8.2 g/dL (11.5-15.4); Immature Granulocytes % 0.3 % (0-4); Segmented Neutrophils % 72.3 %
[2022-01-10 05:29] LABS: Eosinophils # 0.1 K/mcL (0.0-0.6); Eosinophils % 1.3 %; Lymphocytes # 0.7 K/mcL (0.6-4.6); Lymphocytes % 17.6 %; Mean Corpuscular HGB Conc 28.3 g/dL (31.6-35.5); Mean Corpuscular Hemoglobin 25.2 pg (28.0-33.3); Mean Platelet Volume 10.9 fL (9.4-12.4); Monocytes # 0.3 K/mcL (0.0-1.3); Monocytes % 8.2 %; Neutrophils # 2.8 K/mcL (1.6-8.9); Platelet Count 135 K/mcL (140-400); Red Blood Count 3.26 M/mcL (3.82-4.97); Red Cell Distribution Width 20.3 % (11.5-14.5); White Blood Count 3.9 K/mcL (4.3-11.1)
[2022-01-10 05:52] LABS: % Iron Saturation 5 % (15-50); BUN/Creatinine Ratio 38 (6-26); Blood Urea Nitrogen 15 mg/dL (8-23); Calcium 8.4 mg/dL (8.6-10.3); Carbon Dioxide 27 mEq/L (23-29); Chloride 106 mEq/L (98-107); Glucose 94 mg/dL (70-105); Iron 20 mcg/dL (50-170); Magnesium 1.8 mg/dL (1.6-2.6); Osmolality,Calculated 287 (280-300); Phosphorous 2.6 mg/dL (2.7-4.5); Potassium 4.2 mEq/L (3.5-5.1); Sodium 138 mEq/L (136-145); Transferrin 276 mg/dL (203-362); eGFR For African Americans > 60 (> 60); eGFR For Non-African Americans > 60 (> 60)
[2022-01-10 06:03] LABS: Ferritin 21 ng/mL (10-120)
[2022-01-10 06:09] LABS: Folate 14.6 ng/mL (3.0-16.0)
[2022-01-10] MEDS ORDERED: Ipratropium/Albuterol Neb 3 ML IH PRN (07:22)
[2022-01-10] MEDS: Budesonide/Formoterol 160/4.5 1 PUFF INH IH SCH (07:46)
[2022-01-10] MEDS ORDERED: methIMAzole 5 MG TABLET PO SCH (09:00)
[2022-01-10] MEDS ORDERED: Metoprolol XL (24 HR) Succ 25 MG TAB.ER.24H PO SCH (09:00)
[2022-01-10] MEDS ORDERED: Aspirin 81 MG TAB.CHEW PO SCH (09:00)
[2022-01-10] MEDS ORDERED: lisinopriL 5 MG TABLET PO SCH (09:00)
[2022-01-10] MEDS: *HR* Rivaroxaban 10 MG TABLET PO SCH (09:31)
[2022-01-10 10:37] VITALS: PULSE 74; TEMP 98.1
[2022-01-10 10:42] VITALS: BP 100/68; O2SAT 98
== END 2022-01-10 12:46 | disposition home health service (06) ==
LOC: 3BNU 16:00 → EMEROOARM 16:00 → SUATTDRO 19:13 → 3BNU 19:56
PROVIDERS: ADMIT Internal Medicine; ATTEND Internal Medicine

== ENCOUNTER 2022-03-09 17:57 | Inpatient (IN) ==
[2022-03-09] MEDS ORDERED: Isovue-370 500 ML BOTTLE IVP ONE (18:14)
[2022-03-09 18:43] LABS: Basophils % 0.2 %; Hematocrit 29.4 % (35.3-44.9); Hemoglobin 8.6 g/dL (11.5-15.4); Immature Granulocytes % 0.2 % (0-4); Lymphocytes # 0.6 K/mcL (0.6-4.6); Lymphocytes % 11.1 %; Mean Corpuscular HGB Conc 29.3 g/dL (31.6-35.5); Mean Corpuscular Hemoglobin 26.5 pg (28.0-33.3); Mean Corpuscular Volume 90.7 fL (83.0-100.0); Mean Platelet Volume 10.6 fL (9.4-12.4); Monocytes # 0.3 K/mcL (0.0-1.3); Monocytes % 6.6 %; Neutrophils # 4.2 K/mcL (1.6-8.9); Platelet Count 160 K/mcL (140-400); Red Blood Count 3.24 M/mcL (3.82-4.97); Red Cell Distribution Width 18.9 % (11.5-14.5); Segmented Neutrophils % 81.9 %; White Blood Count 5.1 K/mcL (4.3-11.1)
[2022-03-09 18:50] LABS: INR 1.3; Prothrombin Time 14.4 Seconds (9.4-12.1)
[2022-03-09 18:51] LABS: VBG HCO3 24 mEq/L (21-27); VBG PCO2 43 mmHg (41-51); VBG PH 7.35 pH Units (7.32-7.42); VBG PO2 88 mmHg (25-50)
[2022-03-09 19:13] LABS: Alanine Aminotransferase 14 Units/L (7-52); Albumin 3.6 g/dL (3.5-5.7); Albumin/Globulin Ratio 0.9 (1.1-2.2); Alkaline Phosphatase 334 Units/L (34-104); Aspartate Amino Transferase 26 Units/L (13-39); BUN/Creatinine Ratio 38 (6-26); Bilirubin,Direct 0.4 mg/dL (0.0-0.2); Bilirubin,Indirect 0.8 mg/dL (0.0-1.0); Bilirubin,Total 1.2 mg/dL (0.3-1.0); Blood Urea Nitrogen 14 mg/dL (8-23); Calcium 8.8 mg/dL (8.6-10.3); Carbon Dioxide 26 mEq/L (23-29); Chloride 107 mEq/L (98-107); Creatine Kinase 101 Units/L (30-223); Ethanol < 10 mg/dL (Less than 10); Globulin 3.9 g/dL (2.4-3.5); Glucose 87 mg/dL (70-105); Lipase 5 Units/L (11-82); Osmolality,Calculated 288 (280-300); Potassium 3.5 mEq/L (3.5-5.1); Sodium 139 mEq/L (136-145); Total Protein 7.5 g/dL (6.4-8.9); eGFR For African Americans > 60 (> 60); eGFR For Non-African Americans > 60 (> 60)
[2022-03-09 19:32] LABS: Thyroid Stimulating Hormone < 0.010 mcIU/mL (0.340-5.600)
[2022-03-09 20:31] LABS: Bilirubin,Urine Negative (Negative); Blood,Urine Negative (Negative); Clarity,Urine Clear (Clear); Color,Urine Light-Yellow (Yellow); Glucose,Urine (UA) Normal (Normal); Ketones,Urine Negative (Negative); Leukocyte Esterase,Urine Negative (Negative); Nitrite,Urine Negative (Negative); PH,Urine 6.5 pH Units (5.0-8.0); Protein,Urine Trace mg/dL (Neg-Trace); Specific Gravity,Urine 1.024 (1.010-1.025); Urobilinogen,Urine Normal (Normal)
[2022-03-09 20:42] LABS: Amphetamine Screen,Urine Negative ng/mL (Cutoff=1000)
[2022-03-09 20:43] LABS: Barbiturate Screen,Urine Negative ng/mL (Cutoff=200); Benzodiazepines Screen,Urine Negative ng/mL (Cutoff=200); Cannabinoid Screen,Urine Negative ng/mL (Cutoff = 50); Cocaine Screen,Urine Negative ng/mL (Cutoff= 300); Opiate Screen,Urine Negative ng/mL (Cutoff=300); Phencyclidine Screen,Urine Negative ng/mL (Cutoff=25)
[2022-03-09] MEDS ORDERED: Azithromycin 500 MG in 0.9 % Sodium Chloride 250 ML IVPB ONE (21:12)
[2022-03-09] MEDS ORDERED: cefTRIAXone 1,000 MG in 0.9 % Sodium Chloride Mini Bag 100 ML IVPB ONE (21:12)
[2022-03-09] MEDS ORDERED: Naloxone 0.4 MG/ML INJ IVP PRN (23:40)
[2022-03-09] MEDS ORDERED: Melatonin 3 MG TABLET PO PRN (23:40)
[2022-03-10] MEDS ORDERED: Ondansetron ODT 4 MG TAB.RAPDIS SL PRN
[2022-03-10] MEDS ORDERED: 0.9 % Sodium Chloride 1,000 ML IVC SCH (00:30)
[2022-03-10 01:02] LABS: Basophils % 0.5 %; Eosinophils # 0.1 K/mcL (0.0-0.6); Eosinophils % 2.2 %; Hematocrit 29.6 % (35.3-44.9); Hemoglobin 8.6 g/dL (11.5-15.4); Immature Granulocytes % 0.2 % (0-4); Lymphocytes # 0.7 K/mcL (0.6-4.6); Lymphocytes % 16.8 %; Mean Corpuscular HGB Conc 29.1 g/dL (31.6-35.5); Mean Corpuscular Hemoglobin 26.7 pg (28.0-33.3); Mean Corpuscular Volume 91.9 fL (83.0-100.0); Mean Platelet Volume 11.1 fL (9.4-12.4); Monocytes # 0.3 K/mcL (0.0-1.3); Monocytes % 7.2 %; Neutrophils # 3.1 K/mcL (1.6-8.9); Platelet Count 149 K/mcL (140-400); Red Blood Count 3.22 M/mcL (3.82-4.97); Red Cell Distribution Width 18.8 % (11.5-14.5); Segmented Neutrophils % 73.1 %; White Blood Count 4.2 K/mcL (4.3-11.1)
[2022-03-10 01:20] LABS: Alanine Aminotransferase 13 Units/L (7-52); Albumin 3.3 g/dL (3.5-5.7); Albumin/Globulin Ratio 0.8 (1.1-2.2); Alkaline Phosphatase 302 Units/L (34-104); Aspartate Amino Transferase 25 Units/L (13-39); BUN/Creatinine Ratio 32 (6-26); Blood Urea Nitrogen 11 mg/dL (8-23); Calcium 8.6 mg/dL (8.6-10.3); Carbon Dioxide 24 mEq/L (23-29); Chloride 106 mEq/L (98-107); Glucose 70 mg/dL (70-105); Magnesium 1.8 mg/dL (1.6-2.6); Osmolality,Calculated 284 (280-300); Phosphorous 2.4 mg/dL (2.7-4.5); Potassium 3.7 mEq/L (3.5-5.1); Sodium 138 mEq/L (136-145); Total Protein 7.3 g/dL (6.4-8.9); eGFR For African Americans > 60 (> 60); eGFR For Non-African Americans > 60 (> 60)
[2022-03-10] MEDS: Budesonide/Formoterol 160/4.5 1 PUFF INH IH SCH ×2 (07:38→20:41)
[2022-03-10] MEDS ORDERED: amLODIPine 5 MG TABLET PO SCH (09:00)
[2022-03-10] MEDS: *HR* Rivaroxaban 10 MG TABLET PO SCH (09:37)
[2022-03-10] MEDS: methIMAzole 5 MG TABLET PO SCH ×3 (09:41→20:29)
[2022-03-10] MEDS: Metoprolol XL (24 HR) Succ 25 MG TAB.ER.24H PO SCH (13:42)
[2022-03-10] MEDS: lisinopriL 5 MG TABLET PO SCH (13:42)
[2022-03-10] MEDS: Isovue-370 500 ML BOTTLE IVP ONE ×2 (20:05→20:06)
[2022-03-10] MEDS: Mirtazapine 15 MG TABLET PO SCH (20:29)
[2022-03-11 06:33] LABS: Basophils % 0.4 %; Eosinophils # 0.1 K/mcL (0.0-0.6); Eosinophils % 2.1 %; Hematocrit 27.8 % (35.3-44.9); Hemoglobin 8.3 g/dL (11.5-15.4); Immature Granulocytes % 0.4 % (0-4); Lymphocytes # 0.8 K/mcL (0.6-4.6); Lymphocytes % 15.4 %; Mean Corpuscular HGB Conc 29.9 g/dL (31.6-35.5); Mean Corpuscular Hemoglobin 26.8 pg (28.0-33.3); Mean Corpuscular Volume 89.7 fL (83.0-100.0); Mean Platelet Volume 10.8 fL (9.4-12.4); Monocytes # 0.5 K/mcL (0.0-1.3); Monocytes % 9.9 %; Neutrophils # 3.5 K/mcL (1.6-8.9); Platelet Count 162 K/mcL (140-400); Red Cell Distribution Width 18.6 % (11.5-14.5); Segmented Neutrophils % 71.8 %; White Blood Count 4.9 K/mcL (4.3-11.1)
[2022-03-11 06:48] LABS: Alanine Aminotransferase 12 Units/L (7-52); Albumin 3.1 g/dL (3.5-5.7); Albumin/Globulin Ratio 0.9 (1.1-2.2); Alkaline Phosphatase 287 Units/L (34-104); Aspartate Amino Transferase 20 Units/L (13-39); BUN/Creatinine Ratio 38 (6-26); Bilirubin,Total 0.9 mg/dL (0.3-1.0); Blood Urea Nitrogen 14 mg/dL (8-23); Calcium 8.3 mg/dL (8.6-10.3); Carbon Dioxide 26 mEq/L (23-29); Chloride 107 mEq/L (98-107); Globulin 3.6 g/dL (2.4-3.5); Glucose 87 mg/dL (70-105); Osmolality,Calculated 284 (280-300); Potassium 3.6 mEq/L (3.5-5.1); Sodium 137 mEq/L (136-145); Total Protein 6.7 g/dL (6.4-8.9); eGFR For African Americans > 60 (> 60); eGFR For Non-African Americans > 60 (> 60)
[2022-03-11] MEDS: Budesonide/Formoterol 160/4.5 1 PUFF INH IH SCH ×2 (07:53→20:06)
[2022-03-11] MEDS ORDERED: BUPRENORPHINE TP SCH (09:00)
[2022-03-11] MEDS: *HR* Rivaroxaban 10 MG TABLET PO SCH (09:10)
[2022-03-11] MEDS: lisinopriL 5 MG TABLET PO SCH (09:10)
[2022-03-11] MEDS: Metoprolol XL (24 HR) Succ 25 MG TAB.ER.24H PO SCH (09:10)
[2022-03-11] MEDS: methIMAzole 5 MG TABLET PO SCH ×3 (09:10→20:34)
[2022-03-11] MEDS ORDERED: *HR* HYDROmorphone (PF) 1 MG/ML SYRINGE IVP ONE (10:24)
[2022-03-11] MEDS ORDERED: Vancomycin (wt based) 1,000 MG VIAL IVPB SCH (18:00)
[2022-03-11] MEDS: Mirtazapine 15 MG TABLET PO SCH (20:33)
[2022-03-12] MEDS: Piperacillin/Tazobactam 3.375 GM in 0.9 % Sodium Chloride Mini Bag 100 ML IVPB SCH ×3 (01:47→15:35)
[2022-03-12 02:32] LABS: Alanine Aminotransferase 11 Units/L (7-52); Albumin/Globulin Ratio 0.8 (1.1-2.2); Alkaline Phosphatase 254 Units/L (34-104); Aspartate Amino Transferase 18 Units/L (13-39); BUN/Creatinine Ratio 44 (6-26); Bilirubin,Total 0.8 mg/dL (0.3-1.0); Blood Urea Nitrogen 14 mg/dL (8-23); Carbon Dioxide 26 mEq/L (23-29); Chloride 108 mEq/L (98-107); Globulin 3.7 g/dL (2.4-3.5); Glucose 88 mg/dL (70-105); Osmolality,Calculated 288 (280-300); Potassium 3.1 mEq/L (3.5-5.1); Sodium 139 mEq/L (136-145); Total Protein 6.7 g/dL (6.4-8.9); eGFR For African Americans > 60 (> 60); eGFR For Non-African Americans > 60 (> 60)
[2022-03-12] MEDS: *HR* Enoxaparin 60 MG/0.6 ML SYRINGE SQ SCH ×2 (06:41→18:12)
[2022-03-12] MEDS: Budesonide/Formoterol 160/4.5 1 PUFF INH IH SCH ×2 (07:44→20:46)
[2022-03-12] MEDS: lisinopriL 5 MG TABLET PO SCH (08:08)
[2022-03-12] MEDS: Metoprolol XL (24 HR) Succ 25 MG TAB.ER.24H PO SCH (08:09)
[2022-03-12] MEDS: methIMAzole 5 MG TABLET PO SCH ×3 (08:09→20:05)
[2022-03-12] MEDS: *HR* OxyCODONE/APAP 5/325 TABLET PO PRN ×2 (14:03→23:30)
[2022-03-12] MEDS: Mirtazapine 15 MG TABLET PO SCH (20:06)
[2022-03-13] MEDS: Piperacillin/Tazobactam 3.375 GM in 0.9 % Sodium Chloride Mini Bag 100 ML IVPB SCH ×3 (04:04→17:33)
[2022-03-13] MEDS: *HR* Enoxaparin 60 MG/0.6 ML SYRINGE SQ SCH (06:17)
[2022-03-13 06:28] LABS: Basophils % 0.3 %; Eosinophils # 0.1 K/mcL (0.0-0.6); Eosinophils % 1.8 %; Hematocrit 27.6 % (35.3-44.9); Immature Granulocytes % 0.3 % (0-4); Lymphocytes # 0.8 K/mcL (0.6-4.6); Lymphocytes % 12.8 %; Mean Corpuscular Hemoglobin 26.9 pg (28.0-33.3); Mean Corpuscular Volume 92.9 fL (83.0-100.0); Mean Platelet Volume 10.5 fL (9.4-12.4); Monocytes # 0.5 K/mcL (0.0-1.3); Monocytes % 7.9 %; Neutrophils # 4.6 K/mcL (1.6-8.9); Platelet Count 149 K/mcL (140-400); Red Blood Count 2.97 M/mcL (3.82-4.97); Red Cell Distribution Width 18.8 % (11.5-14.5); Segmented Neutrophils % 76.9 %
[2022-03-13 07:18] LABS: Alanine Aminotransferase 12 Units/L (7-52); Albumin 3.1 g/dL (3.5-5.7); Albumin/Globulin Ratio 0.8 (1.1-2.2); Alkaline Phosphatase 311 Units/L (34-104); Aspartate Amino Transferase 20 Units/L (13-39); BUN/Creatinine Ratio 50 (6-26); Bilirubin,Total 0.9 mg/dL (0.3-1.0); Blood Urea Nitrogen 16 mg/dL (8-23); Calcium 8.2 mg/dL (8.6-10.3); Carbon Dioxide 26 mEq/L (23-29); Chloride 106 mEq/L (98-107); Globulin 3.7 g/dL (2.4-3.5); Glucose 76 mg/dL (70-105); Osmolality,Calculated 284 (280-300); Sodium 137 mEq/L (136-145); Total Protein 6.8 g/dL (6.4-8.9); eGFR For African Americans > 60 (> 60); eGFR For Non-African Americans > 60 (> 60)
[2022-03-13] MEDS: Budesonide/Formoterol 160/4.5 1 PUFF INH IH SCH ×2 (07:43→20:38)
[2022-03-13] MEDS: methIMAzole 5 MG TABLET PO SCH ×3 (07:49→20:36)
[2022-03-13] MEDS: Metoprolol XL (24 HR) Succ 25 MG TAB.ER.24H PO SCH (07:51)
[2022-03-13] MEDS: lisinopriL 5 MG TABLET PO SCH (07:51)
[2022-03-13] MEDS ORDERED: Ondansetron 4 MG/2 ML VIAL ONE (11:38)
[2022-03-13] MEDS ORDERED: *HR* Propofol 200 MG/20 ML VIAL IVP ONE (11:39)
[2022-03-13] MEDS ORDERED: *HR* FentaNYL (PF) 100 MCG/2 ML VIAL ONE (11:39)
[2022-03-13] MEDS ORDERED: Lidocaine -MPF 2% 2 ML VIAL ONE ×2 (11:39)
[2022-03-13] MEDS ORDERED: *HR* Midazolam HCl 2 MG/2 ML VIAL ONE (11:39)
[2022-03-13] MEDS ORDERED: *HR* Etomidate 40 MG/20 ML VIAL IVP ONE (12:11)
[2022-03-13] MEDS ORDERED: *HR* FentaNYL (PF) 100 MCG/2 ML VIAL IVP PRN (13:29)
[2022-03-13] MEDS ORDERED: Ondansetron 4 MG/2 ML VIAL IVP PRN (13:30)
[2022-03-13] MEDS ORDERED: Nitroglycerin 0.4 MG TAB.SUBL SL PRN (13:30)
[2022-03-13] MEDS ORDERED: Naloxone 0.4 MG/ML INJ IVP PRN ×2 (13:30→14:24)
[2022-03-13] MEDS ORDERED: Ondansetron ODT 4 MG TAB.RAPDIS SL PRN (14:24)
[2022-03-13] MEDS ORDERED: Melatonin 3 MG TABLET PO PRN (14:24)
[2022-03-13] MEDS: *HR* OxyCODONE/APAP 5/325 TABLET PO PRN (17:35)
[2022-03-13] MEDS ORDERED: *HR* Enoxaparin 60 MG/0.6 ML SYRINGE SQ SCH (18:00)
[2022-03-13] MEDS: Mirtazapine 15 MG TABLET PO SCH (20:37)
[2022-03-14] MEDS: Piperacillin/Tazobactam 3.375 GM in 0.9 % Sodium Chloride Mini Bag 100 ML IVPB SCH ×3 (00:20→20:15)
[2022-03-14] MEDS: *HR* OxyCODONE/APAP 5/325 TABLET PO PRN ×3 (03:15→16:03)
[2022-03-14] MEDS: Budesonide/Formoterol 160/4.5 1 PUFF INH IH SCH ×2 (07:59→19:55)
[2022-03-14 08:49] LABS: Hematocrit 32.9 % (35.3-44.9); Immature Granulocytes % 0.3 % (0-4); Lymphocytes # 0.3 K/mcL (0.6-4.6); Lymphocytes % 7.9 %; Mean Corpuscular HGB Conc 29.2 g/dL (31.6-35.5); Mean Corpuscular Hemoglobin 26.7 pg (28.0-33.3); Mean Corpuscular Volume 91.4 fL (83.0-100.0); Mean Platelet Volume 10.6 fL (9.4-12.4); Monocytes # 0.2 K/mcL (0.0-1.3); Monocytes % 6.7 %; Neutrophils # 2.9 K/mcL (1.6-8.9); Platelet Count 145 K/mcL (140-400); Red Cell Distribution Width 18.4 % (11.5-14.5); Segmented Neutrophils % 85.1 %; White Blood Count 3.4 K/mcL (4.3-11.1)
[2022-03-14 08:51] LABS: Hemoglobin 9.6 g/dL (11.5-15.4)
[2022-03-14] MEDS: lisinopriL 5 MG TABLET PO SCH (08:53)
[2022-03-14] MEDS: methIMAzole 5 MG TABLET PO SCH ×3 (08:53→20:18)
[2022-03-14] MEDS ORDERED: Metoprolol XL (24 HR) Succ 25 MG TAB.ER.24H PO SCH (09:00)
[2022-03-14 09:08] LABS: Alanine Aminotransferase 15 Units/L (7-52); Albumin 3.1 g/dL (3.5-5.7); Albumin/Globulin Ratio 0.8 (1.1-2.2); Alkaline Phosphatase 348 Units/L (34-104); Aspartate Amino Transferase 25 Units/L (13-39); BUN/Creatinine Ratio 45 (6-26); Bilirubin,Total 0.7 mg/dL (0.3-1.0); Blood Urea Nitrogen 19 mg/dL (8-23); Calcium 8.6 mg/dL (8.6-10.3); Carbon Dioxide 24 mEq/L (23-29); Chloride 107 mEq/L (98-107); Globulin 3.8 g/dL (2.4-3.5); Glucose 281 mg/dL (70-105); Osmolality,Calculated 294 (280-300); Potassium 4.3 mEq/L (3.5-5.1); Sodium 136 mEq/L (136-145); Total Protein 6.9 g/dL (6.4-8.9); eGFR For African Americans > 60 (> 60); eGFR For Non-African Americans > 60 (> 60)
[2022-03-14] MEDS: Vancomycin 1,250 MG/262.5 ML IV.SOLN IVPB SCH ×2 (09:37→21:39)
[2022-03-14] MEDS ORDERED: *HR* Metoprolol 5 MG/5 ML VIAL IVP PRN (14:25)
[2022-03-14] MEDS ORDERED: *HR* Rivaroxaban 10 MG TABLET PO SCH (17:00)
[2022-03-14] MEDS: Mirtazapine 15 MG TABLET PO SCH (20:18)
[2022-03-15] MEDS: *HR* OxyCODONE/APAP 5/325 TABLET PO PRN ×3 (00:35→17:26)
[2022-03-15] MEDS: Piperacillin/Tazobactam 3.375 GM in 0.9 % Sodium Chloride Mini Bag 100 ML IVPB SCH (03:38)
[2022-03-15] MEDS: Budesonide/Formoterol 160/4.5 1 PUFF INH IH SCH (07:25)
[2022-03-15] MEDS: lisinopriL 5 MG TABLET PO SCH (08:54)
[2022-03-15] MEDS: methIMAzole 5 MG TABLET PO SCH (08:54)
[2022-03-15] MEDS ORDERED: Metoprolol XL (24 HR) Succ 50 MG TAB.ER.24H PO SCH (09:00)
[2022-03-15] MEDS ORDERED: Metoprolol XL (24 HR) Succ 25 MG TAB.ER.24H PO SCH (09:00)
[2022-03-15 16:17] VITALS: BP 139/58; PULSE 75; TEMP 97.6; O2SAT 97
[2022-03-18] MEDS ORDERED: BUPRENORPHINE TP SCH (09:00)
== END 2022-03-15 17:46 | disposition home or self-care (01) | DRG 256 ==
LOC: 3ANU 17:57 → EMEROOARM 17:57 → 3ANU 23:21 → SUATTDRO 03-11 17:47
PROVIDERS: ADMIT Internal Medicine; ATTEND Internal Medicine